=== PATIENT | male | born 1975 | race Caucasian/White ===

== ENCOUNTER 2020-02-23 08:32 | Outpatient (REF) | payer OTHER, SELFPAY ==
[2020-02-23 09:18] LABS: MANUAL DIFF FLAG NO
[2020-02-23 09:25] LABS: Basophils Absolute Auto 0.1 X10*3/uL (0.0-0.2); Basophils Percent Auto 0.7 % (0-2); Eosinophils Absolute Auto 0.2 X10*3/uL (0.0-0.4); Eosinophils Percent Auto 2.4 % (0-4); Hematocrit 49.3 % (42-52); Hemoglobin 16.4 g/dl (14.0-18.0); Imm Gran Abs Auto 0.05 X10*3/uL (0.00-0.03); Imm Gran Pct Auto 0.7 % (0.0-0.4); Lymphocytes Absolute Auto 1.3 X10*3/uL (1.2-4.9); Mean Corpuscular HGB Conc 33.3 g/dl (31.0-36.0); Mean Corpuscular Volume 87.1 fL (80-98); Mean Platelet Volume 10.9 fL (9.4-12.4); Monocytes Absolute Auto 0.6 X10*3/uL (0.1-1.2); Monocytes Percent Auto 8.1 % (2-11); Neutrophils Absolute Auto 5.3 X10*3/uL (2.0-8.3); Neutrophils Percent Auto 71.1 % (45-73); Platelet Count 209 X10*3/uL (160-400); Red Blood Count 5.66 X10*6/uL (4.60-5.80); Red Cell Distribution Width 12.8 % (11.0-16.0); White Blood Count 7.4 X10*3/uL (4.8-10.8)
[2020-02-23 09:43] LABS: Alanine Aminotransferase 62 U/L (0-40); Albumin Level 4.6 g/dL (3.5-5.0); Alkaline Phosphatase 82 U/L (39-117); Anion Gap 11 (12-20); Aspartate Amino Transferase 34 U/L (5-37); Bilirubin Total 0.6 mg/dL (0.0-1.0); Blood Urea Nitrogen 12 mg/dL (9-16); Calcium 9.3 mg/dL (8.4-10.2); Carbon Dioxide 36 mmol/L (22-29); Chloride 99 mmol/L (96-108); Cholesterol 217 mg/dL; Estimated Glomerular Filt Rate > 60; Glucose Fasting 127 mg/dL (60-99); HDL Cholesterol 45 mg/dL; LDL Cholesterol Calculated 148 mg/dl; Potassium 3.9 mmol/l (3.3-5.1); Sodium 142 mmol/L (135-145); Total Protein 7.2 g/dL (6.5-8.0); Triglycerides 123 mg/dL
[2020-02-23 10:02] LABS: Prostate Specific Antigen 0.75 ng/mL (<0.05-4.0)
== END 2020-02-23 08:33 | disposition home or self-care (01) ==
LOC: HO.LAB 08:32
PROVIDERS: PCP Internal Medicine; Visit Provider Internal Medicine
DX: G47.33 Obstructive sleep apnea (adult) (pediatric) (principal); Z00.00 Encounter for general adult medical examination without abnormal findings; I50.22 Chronic systolic (congestive) heart failure; E78.00 Pure hypercholesterolemia, unspecified; J45.21 Mild intermittent asthma with (acute) exacerbation; Z95.2 Presence of prosthetic heart valve
CPT/HCPCS: 36415; 80053; 80061; 84153; 85025

== ENCOUNTER 2020-02-25 08:13 | Outpatient (REF) | payer OTHER, SELFPAY ==
[2020-02-25 08:30] LABS: Glucose Urine UA NEG (NEG); Leukocyte Esterase Urine NEG (NEG); Nitrite Urine NEG (NEG); PH 5.5 (5.0-8.0); Specific Gravity - Urine >= 1.030 (1.005-1.025); Urine Blood NEG (NEG); Urine Ketones NEG (NEG); Urine Protein NEG (NEG-TRACE)
[2020-02-25 08:36] LABS: Appearance Urine CLEAR; Color Urine YELLOW
== END 2020-02-25 08:14 | disposition home or self-care (01) ==
LOC: HO.LNP 08:13
PROVIDERS: Visit Provider Internal Medicine
DX: Z00.00 Encounter for general adult medical examination without abnormal findings (principal); G47.33 Obstructive sleep apnea (adult) (pediatric); I50.22 Chronic systolic (congestive) heart failure; E78.00 Pure hypercholesterolemia, unspecified; Z95.2 Presence of prosthetic heart valve
CPT/HCPCS: 81003

== ENCOUNTER → 2020-02-28 08:09 | Outpatient (BNVA) | payer OTHER, SELFPAY | PROVIDERS: PCP Internal Medicine; Visit Provider Internal Medicine | DX: Z95.2 Presence of prosthetic heart valve (principal); Z51.81 Encounter for therapeutic drug level monitoring; Z79.01 Long term (current) use of anticoagulants | CPT/HCPCS: Q3014 ==

== ENCOUNTER → 2020-03-06 15:50 | Outpatient (BNVA) | payer OTHER, SELFPAY | PROVIDERS: PCP Internal Medicine; Visit Provider Internal Medicine | DX: Z95.2 Presence of prosthetic heart valve (principal); Z51.81 Encounter for therapeutic drug level monitoring; Z79.01 Long term (current) use of anticoagulants | CPT/HCPCS: 85610; 99211 ==

== ENCOUNTER → 2020-04-24 08:36 | Outpatient (BNVA) | payer OTHER, SELFPAY | PROVIDERS: PCP Internal Medicine; Visit Provider Internal Medicine | DX: Z76.89 Persons encountering health services in other specified circumstances (principal) ==

== ENCOUNTER → 2020-05-08 09:05 | Outpatient (BNVA) | payer OTHER, SELFPAY | PROVIDERS: PCP Internal Medicine; Visit Provider Internal Medicine | DX: Z95.2 Presence of prosthetic heart valve (principal); Z51.81 Encounter for therapeutic drug level monitoring; Z79.01 Long term (current) use of anticoagulants | CPT/HCPCS: Q3014 ==

== ENCOUNTER → 2020-05-22 10:32 | Outpatient (BNVA) | payer OTHER, SELFPAY | PROVIDERS: PCP Internal Medicine; Visit Provider Internal Medicine | DX: Z76.89 Persons encountering health services in other specified circumstances (principal) ==

== ENCOUNTER → 2020-06-05 08:27 | Outpatient (BNVA) | payer OTHER, SELFPAY | PROVIDERS: PCP Internal Medicine; Visit Provider Internal Medicine | DX: Z95.2 Presence of prosthetic heart valve (principal); Z51.81 Encounter for therapeutic drug level monitoring; Z79.01 Long term (current) use of anticoagulants | CPT/HCPCS: Q3014 ==

== ENCOUNTER → 2020-06-12 08:27 | Outpatient (BNVA) | payer OTHER, SELFPAY | PROVIDERS: PCP Internal Medicine; Visit Provider Internal Medicine ==

== ENCOUNTER → 2020-06-26 11:29 | Outpatient (BNVA) | payer OTHER, SELFPAY | PROVIDERS: PCP Internal Medicine; Visit Provider Internal Medicine | DX: Z95.2 Presence of prosthetic heart valve (principal); Z51.81 Encounter for therapeutic drug level monitoring; Z79.01 Long term (current) use of anticoagulants | CPT/HCPCS: Q3014 ==

== ENCOUNTER → 2020-07-10 09:33 | Outpatient (BNVA) | payer OTHER, SELFPAY | PROVIDERS: PCP Internal Medicine; Visit Provider Internal Medicine ==

== ENCOUNTER → 2020-07-24 09:38 | Outpatient (BNVA) | payer OTHER, SELFPAY | PROVIDERS: PCP Internal Medicine; Visit Provider Internal Medicine ==

== ENCOUNTER → 2020-08-07 11:58 | Outpatient (BNVA) | payer OTHER, SELFPAY | PROVIDERS: PCP Internal Medicine; Visit Provider Internal Medicine | DX: Z79.01 Long term (current) use of anticoagulants (principal) ==

== ENCOUNTER → 2020-08-21 08:19 | Outpatient (BNVA) | payer OTHER, SELFPAY | PROVIDERS: PCP Internal Medicine; Visit Provider Internal Medicine ==

== ENCOUNTER 2020-08-28 10:20 | Outpatient (REF) | payer OTHER, SELFPAY ==
[2020-08-28 10:59] LABS: Estimated Average Glucose 123 mg/dL; Hemoglobin A1c % 5.9 %
[2020-08-28 11:52] LABS: Cholesterol 205 mg/dL; Glucose Fasting 109 mg/dL (60-99); HDL Cholesterol 42 mg/dL; LDL Cholesterol Calculated 142 mg/dl; Potassium 3.4 mmol/L (3.3-5.1); Triglycerides 108 mg/dL
== END 2020-08-28 10:21 | disposition home or self-care (01) ==
LOC: HO.LNP 10:20
PROVIDERS: Visit Provider Internal Medicine
DX: R73.03 Prediabetes (principal); E78.00 Pure hypercholesterolemia, unspecified; E87.6 Hypokalemia
CPT/HCPCS: 80061; 82947; 83036; 84132

== ENCOUNTER → 2020-09-11 08:22 | Outpatient (BNVA) | payer OTHER, SELFPAY | PROVIDERS: PCP Internal Medicine; Visit Provider Internal Medicine ==

== ENCOUNTER → 2020-09-30 11:54 | Outpatient (BNVA) | payer OTHER, SELFPAY | PROVIDERS: PCP Internal Medicine; Visit Provider Internal Medicine ==

== ENCOUNTER → 2020-10-14 08:51 | Outpatient (BNVA) | payer OTHER, SELFPAY | PROVIDERS: PCP Internal Medicine; Visit Provider Internal Medicine ==

== ENCOUNTER → 2020-10-28 09:13 | Outpatient (BNVA) | payer OTHER, SELFPAY | PROVIDERS: PCP Internal Medicine; Visit Provider Internal Medicine ==

== ENCOUNTER → 2020-11-11 09:10 | Outpatient (BNVA) | payer OTHER, SELFPAY | PROVIDERS: PCP Internal Medicine; Visit Provider Internal Medicine ==

== ENCOUNTER → 2020-11-25 10:23 | Outpatient (BNVA) | payer OTHER, SELFPAY | PROVIDERS: PCP Internal Medicine; Visit Provider Internal Medicine ==

== ENCOUNTER → 2020-12-10 08:26 | Outpatient (BNVA) | payer OTHER, SELFPAY | PROVIDERS: PCP Internal Medicine; Visit Provider Internal Medicine | DX: Z95.2 Presence of prosthetic heart valve (principal); Z51.81 Encounter for therapeutic drug level monitoring; Z79.01 Long term (current) use of anticoagulants | CPT/HCPCS: Q3014 ==

== ENCOUNTER → 2020-12-17 09:09 | Outpatient (BNVA) | payer OTHER, SELFPAY | PROVIDERS: PCP Internal Medicine; Visit Provider Internal Medicine ==

== ENCOUNTER → 2021-01-02 10:43 | Outpatient (BNVA) | payer OTHER, SELFPAY | PROVIDERS: PCP Internal Medicine; Visit Provider Internal Medicine | DX: Z95.2 Presence of prosthetic heart valve (principal); Z79.01 Long term (current) use of anticoagulants; Z51.81 Encounter for therapeutic drug level monitoring | CPT/HCPCS: Q3014 ==

== ENCOUNTER → 2021-01-07 10:48 | Outpatient (BNVA) | payer OTHER, SELFPAY | PROVIDERS: PCP Internal Medicine; Visit Provider Internal Medicine ==

== ENCOUNTER → 2021-01-13 10:36 | Outpatient (BNVA) | payer OTHER, SELFPAY | PROVIDERS: PCP Internal Medicine; Visit Provider Internal Medicine ==

== ENCOUNTER → 2021-01-27 15:00 | Outpatient (BNVA) | payer OTHER, SELFPAY | PROVIDERS: PCP Internal Medicine; Visit Provider Internal Medicine ==

== ENCOUNTER → 2021-02-10 11:50 | Outpatient (BNVA) | payer OTHER, SELFPAY | PROVIDERS: PCP Internal Medicine; Visit Provider Internal Medicine | DX: Z95.2 Presence of prosthetic heart valve (principal); Z51.81 Encounter for therapeutic drug level monitoring; Z79.01 Long term (current) use of anticoagulants | CPT/HCPCS: Q3014 ==

== ENCOUNTER 2021-02-23 10:26 | Outpatient (REF) | payer OTHER, SELFPAY ==
[2021-02-23 10:31] LABS: MANUAL DIFF FLAG NO
[2021-02-23 10:43] LABS: Basophils Absolute Auto 0.1 X10*3/uL (0.0-0.2); Eosinophils Absolute Auto 0.2 X10*3/uL (0.0-0.4); Eosinophils Percent Auto 3.1 % (0-4); Hematocrit 48.2 % (42-52); Hemoglobin 16.1 g/dl (14.0-18.0); Imm Gran Abs Auto 0.05 X10*3/uL (0.00-0.03); Imm Gran Pct Auto 0.7 % (0.0-0.4); Lymphocytes Absolute Auto 1.4 X10*3/uL (1.2-4.9); Lymphocytes Percent Auto 20.2 % (20-40); Mean Corpuscular HGB Conc 33.4 g/dl (31.0-36.0); Mean Corpuscular Volume 86.7 fL (80-98); Mean Platelet Volume 11.3 fL (9.4-12.4); Monocytes Absolute Auto 0.6 X10*3/uL (0.1-1.2); Monocytes Percent Auto 9.1 % (2-11); Neutrophils Absolute Auto 4.4 X10*3/uL (2.0-8.3); Neutrophils Percent Auto 65.9 % (45-73); Platelet Count 218 X10*3/uL (160-400); Red Blood Count 5.56 X10*6/uL (4.60-5.80); Red Cell Distribution Width 12.9 % (11.0-16.0); White Blood Count 6.7 X10*3/uL (4.8-10.8)
[2021-02-23 10:50] LABS: Appearance Urine CLEAR; Color Urine YELLOW; Glucose Urine UA NEG (NEG); Leukocyte Esterase Urine NEG (NEG); Nitrite Urine NEG (NEG); Urine Blood NEG (NEG); Urine Ketones NEG (NEG); Urine Protein NEG (NEG-TRACE)
[2021-02-23 11:05] LABS: Alanine Aminotransferase 69 U/L (0-40); Albumin Level 4.5 g/dL (3.5-5.0); Alkaline Phosphatase 85 U/L (39-117); Anion Gap 13 (12-20); Aspartate Amino Transferase 47 U/L (5-37); Bilirubin Total 0.6 mg/dL (0.0-1.0); Blood Urea Nitrogen 10 mg/dL (9-16); Calcium 9.2 mg/dL (8.4-10.2); Carbon Dioxide 34 mmol/L (22-29); Chloride 99 mmol/L (96-108); Cholesterol 232 mg/dL; Estimated Glomerular Filt Rate > 60; Glucose Fasting 119 mg/dL (60-99); HDL Cholesterol 43 mg/dL; LDL Cholesterol Calculated 164 mg/dl; Potassium 3.3 mmol/L (3.3-5.1); Sodium 143 mmol/L (135-145); Total Protein 7.1 g/dL (6.5-8.0); Triglycerides 126 mg/dL; Uric Acid 10.4 mg/dL (3.4-7.0)
[2021-02-23 11:12] LABS: Estimated Average Glucose 126 mg/dL
[2021-02-23 11:17] LABS: Creatinine Urine 24.76 mg/dL; Microalbum/Creatinine Ratio Ur 60.5 ug/mg cr
[2021-02-23 11:25] LABS: PSA,Total (Free>4and<10) 0.62 ng/mL (0.00-4.00)
[2021-02-23 12:02] LABS: Reflex LDLD? No
== END 2021-02-23 10:27 | disposition home or self-care (01) ==
LOC: HO.LNP 10:26
PROVIDERS: Visit Provider Internal Medicine
DX: Z00.00 Encounter for general adult medical examination without abnormal findings (principal); Z12.5 Encounter for screening for malignant neoplasm of prostate; I50.22 Chronic systolic (congestive) heart failure; E78.00 Pure hypercholesterolemia, unspecified; R73.03 Prediabetes; M10.9 Gout, unspecified
CPT/HCPCS: 80053; 80061; 81003; 82043; 83036; 84153; 84550; 85025

== ENCOUNTER → 2021-02-24 15:12 | Outpatient (BNVA) | payer OTHER, SELFPAY | PROVIDERS: PCP Internal Medicine; Visit Provider Internal Medicine ==

== ENCOUNTER → 2021-03-05 15:51 | Outpatient (BNVA) | payer OTHER, SELFPAY | PROVIDERS: PCP Internal Medicine; Visit Provider Internal Medicine | DX: Z95.2 Presence of prosthetic heart valve (principal); Z51.81 Encounter for therapeutic drug level monitoring; Z79.01 Long term (current) use of anticoagulants | CPT/HCPCS: 85610; 99211 ==

== ENCOUNTER → 2021-03-18 14:30 | Outpatient (BNVA) | payer OTHER, SELFPAY | PROVIDERS: PCP Internal Medicine; Visit Provider Internal Medicine | DX: Z95.2 Presence of prosthetic heart valve (principal); Z51.81 Encounter for therapeutic drug level monitoring; Z79.01 Long term (current) use of anticoagulants | CPT/HCPCS: Q3014 ==

== ENCOUNTER → 2021-03-31 09:00 | Outpatient (BNVA) | payer OTHER, SELFPAY | PROVIDERS: PCP Internal Medicine; Visit Provider Internal Medicine ==

== ENCOUNTER → 2021-04-14 13:27 | Outpatient (BNVA) | payer OTHER, SELFPAY | PROVIDERS: PCP Internal Medicine; Visit Provider Internal Medicine | DX: Z95.2 Presence of prosthetic heart valve (principal); Z51.81 Encounter for therapeutic drug level monitoring; Z79.01 Long term (current) use of anticoagulants | CPT/HCPCS: Q3014 ==

== ENCOUNTER → 2021-04-29 12:21 | Outpatient (BNVA) | payer OTHER, SELFPAY | PROVIDERS: PCP Internal Medicine; Visit Provider Internal Medicine ==

== ENCOUNTER → 2021-05-12 13:44 | Outpatient (BNVA) | payer OTHER, SELFPAY | PROVIDERS: PCP Internal Medicine; Visit Provider Internal Medicine ==

== ENCOUNTER → 2021-05-26 11:19 | Outpatient (BNVA) | payer OTHER, SELFPAY | PROVIDERS: PCP Internal Medicine; Visit Provider Internal Medicine ==

== ENCOUNTER 2021-06-04 10:25 | Outpatient (REF) | payer OTHER, SELFPAY ==
[2021-06-04 11:33] LABS: Uric Acid 5.3 mg/dL (3.4-7.0)
== END 2021-06-04 10:26 | disposition home or self-care (01) ==
LOC: HO.LNP 10:25
PROVIDERS: Visit Provider Internal Medicine
DX: M10.9 Gout, unspecified (principal)
CPT/HCPCS: 84550

== ENCOUNTER → 2021-06-09 10:08 | Outpatient (BNVA) | payer OTHER, SELFPAY | PROVIDERS: PCP Internal Medicine; Visit Provider Internal Medicine ==

== ENCOUNTER → 2021-06-24 11:45 | Outpatient (BNVA) | payer OTHER, SELFPAY | PROVIDERS: PCP Internal Medicine; Visit Provider Internal Medicine ==

== ENCOUNTER → 2021-07-07 16:38 | Outpatient (BNVA) | payer OTHER, SELFPAY | PROVIDERS: PCP Internal Medicine; Visit Provider Internal Medicine | DX: Z95.2 Presence of prosthetic heart valve (principal); Z51.81 Encounter for therapeutic drug level monitoring; Z79.01 Long term (current) use of anticoagulants | CPT/HCPCS: Q3014 ==

== ENCOUNTER → 2021-07-21 08:37 | Outpatient (BNVA) | payer OTHER, SELFPAY | PROVIDERS: PCP Internal Medicine; Visit Provider Internal Medicine ==

== ENCOUNTER → 2021-08-04 12:30 | Outpatient (BNVA) | payer OTHER, SELFPAY | PROVIDERS: PCP Internal Medicine; Visit Provider Internal Medicine | DX: Z13.89 Encounter for screening for other disorder (principal) ==

== ENCOUNTER → 2021-08-21 08:25 | Outpatient (BNVA) | payer OTHER, SELFPAY | PROVIDERS: PCP Internal Medicine; Visit Provider Internal Medicine | DX: Z13.89 Encounter for screening for other disorder (principal) ==

== ENCOUNTER → 2021-09-01 11:47 | Outpatient (BNVA) | payer OTHER, SELFPAY | PROVIDERS: PCP Internal Medicine; Visit Provider Internal Medicine | DX: Z13.89 Encounter for screening for other disorder (principal) ==

== ENCOUNTER → 2021-09-15 14:38 | Outpatient (BNVA) | payer OTHER, SELFPAY | PROVIDERS: PCP Internal Medicine; Visit Provider Internal Medicine | DX: Z95.2 Presence of prosthetic heart valve (principal); Z51.81 Encounter for therapeutic drug level monitoring; Z79.01 Long term (current) use of anticoagulants | CPT/HCPCS: Q3014 ==

== ENCOUNTER → 2021-09-22 12:45 | Outpatient (BNVA) | payer OTHER, SELFPAY | PROVIDERS: PCP Internal Medicine; Visit Provider Internal Medicine | DX: Z13.89 Encounter for screening for other disorder (principal) ==

== ENCOUNTER → 2021-10-06 10:59 | Outpatient (BNVA) | payer OTHER, SELFPAY | PROVIDERS: PCP Internal Medicine; Visit Provider Internal Medicine | DX: Z13.89 Encounter for screening for other disorder (principal) ==

== ENCOUNTER → 2021-10-20 08:56 | Outpatient (BNVA) | payer OTHER, SELFPAY | PROVIDERS: PCP Internal Medicine; Visit Provider Internal Medicine | DX: Z13.89 Encounter for screening for other disorder (principal) ==

== ENCOUNTER → 2021-12-15 10:14 | Outpatient (BNVA) | payer OTHER, SELFPAY | PROVIDERS: PCP Internal Medicine; Visit Provider Internal Medicine | DX: Z95.2 Presence of prosthetic heart valve (principal); Z51.81 Encounter for therapeutic drug level monitoring; Z79.01 Long term (current) use of anticoagulants | CPT/HCPCS: Q3014 ==

== ENCOUNTER → 2022-01-12 09:57 | Outpatient (BNVA) | payer OTHER, SELFPAY | PROVIDERS: PCP Internal Medicine; Visit Provider Internal Medicine | DX: Z95.2 Presence of prosthetic heart valve (principal); Z51.81 Encounter for therapeutic drug level monitoring; Z79.01 Long term (current) use of anticoagulants | CPT/HCPCS: Q3014 ==

== ENCOUNTER → 2022-03-09 08:45 | Outpatient (BNVA) | payer OTHER, SELFPAY | PROVIDERS: PCP Internal Medicine; Visit Provider Internal Medicine | DX: Z95.2 Presence of prosthetic heart valve (principal); Z79.01 Long term (current) use of anticoagulants; Z51.81 Encounter for therapeutic drug level monitoring | CPT/HCPCS: Q3014 ==

== ENCOUNTER → 2022-03-18 15:21 | Outpatient (BNVA) | payer OTHER, SELFPAY | PROVIDERS: PCP Internal Medicine; Visit Provider Internal Medicine | DX: Z95.2 Presence of prosthetic heart valve (principal); Z51.81 Encounter for therapeutic drug level monitoring; Z79.01 Long term (current) use of anticoagulants | CPT/HCPCS: 85610; 99211 ==

== ENCOUNTER 2022-04-05 11:03 | Outpatient (REF) | payer OTHER, SELFPAY ==
[2022-04-05 11:10] LABS: MANUAL DIFF FLAG NO
[2022-04-05 12:17] LABS: Basophils Absolute Auto 0.1 X10*3/uL (0.0-0.2); Basophils Percent Auto 0.8 % (0-2); Eosinophils Absolute Auto 0.3 X10*3/uL (0.0-0.4); Eosinophils Percent Auto 3.4 % (0-4); Hematocrit 51.7 % (42.0-52.0); Hemoglobin 16.6 g/dl (14.0-18.0); Imm Gran Abs Auto 0.02 X10*3/uL (0.00-0.03); Imm Gran Pct Auto 0.3 % (0.0-0.4); Lymphocytes Absolute Auto 1.3 X10*3/uL (1.2-4.9); Lymphocytes Percent Auto 17.3 % (20-40); Mean Corpuscular HGB Conc 32.1 g/dl (31.0-36.0); Mean Corpuscular Hemoglobin 28.6 pg (27.0-33.0); Mean Corpuscular Volume 89.1 fL (80.0-98.0); Mean Platelet Volume 11.3 fL (9.4-12.4); Monocytes Absolute Auto 0.6 X10*3/uL (0.1-1.2); Monocytes Percent Auto 8.3 % (2-11); Neutrophils Absolute Auto 5.1 x10*3/uL (2.0-8.3); Neutrophils Percent Auto 69.9 % (45-73); Platelet Count 201 X10*3/uL (160-400); Red Cell Distribution Width 13.4 % (11.0-16.0); White Blood Count 7.3 X10*3/uL (4.8-10.8)
[2022-04-05 12:40] LABS: Estimated Average Glucose 126 mg/dL
[2022-04-05 12:46] LABS: Appearance Urine Hazy; Color Urine Yellow; Glucose Urine UA Negative (Negative); Leukocyte Esterase Urine Negative (Negative); Nitrite Urine Negative (Negative); Specific Gravity - Urine >= 1.030 (1.005-1.025); UMIC TRIGGER UA YES; Urine Blood Negative (Negative); Urine Ketones Negative (Negative); Urine Protein 100 (2+) mg/dL (Neg-Trace)
[2022-04-05 12:58] LABS: Microalbum/Creatinine Ratio Ur 55.5 ug/mg cr
[2022-04-05 13:00] LABS: PSA,Total (Free>4and<10) 0.54 ng/mL (0.00-4.00)
[2022-04-05 13:27] LABS: Bacteria Urine None Seen (None Seen); Hyaline Casts Urine 0-2 /LPF (0-2); RBC Urine 0-2 /HPF (0-2); Squamous Epithelial Cell Urine 0-2 /HPF (0-2); WBC Urine 0-5 /HPF (0-5)
[2022-04-05 13:28] LABS: Calcium Oxalate Crystals Urine Present
[2022-04-05 13:32] LABS: Alanine Aminotransferase 105 U/L (0-40); Albumin Level 4.5 g/dL (3.5-5.0); Alkaline Phosphatase 83 U/L (39-117); Anion Gap 18 (12-20); Aspartate Amino Transferase 68 U/L (5-37); Bilirubin Total 1.1 mg/dL (0.0-1.0); Blood Urea Nitrogen 10 mg/dL (9-16); Calcium 9.1 mg/dL (8.4-10.2); Carbon Dioxide 31 mmol/L (22-29); Chloride 97 mmol/L (96-108); Cholesterol 204 mg/dL; Estimated Glomerular Filt Rate > 60; Glucose Fasting 115 mg/dL (60-99); HDL Cholesterol 41 mg/dL; LDL Cholesterol Calculated 148 mg/dl; Potassium 3.8 mmol/L (3.3-5.1); Sodium 142 mmol/L (135-145); Total Protein 7.2 g/dL (6.5-8.0); Triglycerides 76 mg/dL
== END 2022-04-05 11:04 | disposition home or self-care (01) ==
LOC: HO.LNP 11:03
PROVIDERS: Visit Provider Internal Medicine
DX: Z00.00 Encounter for general adult medical examination without abnormal findings (principal); I50.22 Chronic systolic (congestive) heart failure; E78.00 Pure hypercholesterolemia, unspecified; R73.09 Other abnormal glucose; Z12.5 Encounter for screening for malignant neoplasm of prostate
CPT/HCPCS: 80053; 80061; 81001; 82043; 83036; 84153; 85025

== ENCOUNTER → 2022-05-11 10:14 | Outpatient (BNVA) | payer OTHER, SELFPAY | PROVIDERS: PCP Internal Medicine; Visit Provider Internal Medicine | DX: Z79.01 Long term (current) use of anticoagulants (principal) ==

== ENCOUNTER → 2022-05-25 09:50 | Outpatient (BNVA) | payer OTHER, SELFPAY | PROVIDERS: PCP Internal Medicine; Visit Provider Internal Medicine | DX: Z79.01 Long term (current) use of anticoagulants (principal) ==

== ENCOUNTER → 2022-06-08 15:14 | Outpatient (BNVA) | payer OTHER, SELFPAY | PROVIDERS: PCP Internal Medicine; Visit Provider Internal Medicine | DX: Z79.01 Long term (current) use of anticoagulants (principal) ==

== ENCOUNTER → 2022-06-11 10:04 | Outpatient (BNVA) | payer OTHER, SELFPAY | PROVIDERS: PCP Internal Medicine; Visit Provider Internal Medicine | DX: Z79.01 Long term (current) use of anticoagulants (principal) ==

== ENCOUNTER 2022-06-14 11:26 | Outpatient (REF) | payer OTHER, SELFPAY ==
[2022-06-14 12:47] LABS: Potassium 2.7 mmol/L (3.3-5.1)
== END 2022-06-14 11:27 | disposition home or self-care (01) ==
LOC: HO.LNP 11:26
PROVIDERS: Visit Provider Internal Medicine
DX: E87.6 Hypokalemia (principal)
CPT/HCPCS: 84132

== ENCOUNTER → 2022-06-15 08:57 | Outpatient (BNVA) | payer OTHER, SELFPAY | PROVIDERS: PCP Internal Medicine; Visit Provider Internal Medicine | DX: Z79.01 Long term (current) use of anticoagulants (principal) ==

== ENCOUNTER 2022-06-18 11:37 | Outpatient (REF) | payer OTHER, SELFPAY ==
[2022-06-18 11:40] LABS: MANUAL DIFF FLAG NO
[2022-06-18 12:22] LABS: Basophils Absolute Auto 0.1 X10*3/uL (0.0-0.2); Basophils Percent Auto 0.6 % (0-2); Eosinophils Absolute Auto 0.2 X10*3/uL (0.0-0.4); Eosinophils Percent Auto 2.7 % (0-4); Hemoglobin 18.5 g/dl (14.0-18.0); Imm Gran Abs Auto 0.04 X10*3/uL (0.00-0.03); Imm Gran Pct Auto 0.5 % (0.0-0.4); Lymphocytes Absolute Auto 1.3 X10*3/uL (1.2-4.9); Lymphocytes Percent Auto 15.1 % (20-40); Mean Corpuscular HGB Conc 33.6 g/dl (31.0-36.0); Mean Corpuscular Hemoglobin 28.4 pg (27.0-33.0); Mean Corpuscular Volume 84.5 fL (80.0-98.0); Mean Platelet Volume 11.1 fL (9.4-12.4); Monocytes Absolute Auto 0.7 X10*3/uL (0.1-1.2); Monocytes Percent Auto 8.3 % (2-11); Neutrophils Absolute Auto 6.3 x10*3/uL (2.0-8.3); Neutrophils Percent Auto 72.8 % (45-73); Platelet Count 216 X10*3/uL (160-400); Red Blood Count 6.52 X10*6/uL (4.60-5.80); Red Cell Distribution Width 12.7 % (11.0-16.0); White Blood Count 8.6 X10*3/uL (4.8-10.8)
[2022-06-18 12:36] LABS: Hematocrit 55.1 % (42.0-52.0)
[2022-06-18 13:28] LABS: Alanine Aminotransferase 67 U/L (0-40); Albumin Level 4.5 g/dL (3.5-5.0); Alkaline Phosphatase 97 U/L (39-117); Anion Gap 23 (12-20); Aspartate Amino Transferase 51 U/L (5-37); Bilirubin Total 1.2 mg/dL (0.0-1.0); Blood Urea Nitrogen 28 mg/dL (9-16); Calcium 9.9 mg/dL (8.4-10.2); Carbon Dioxide 41 mmol/L (22-29); Chloride 80 mmol/L (96-108); Estimated Glomerular Filt Rate > 60; Glucose Fasting 168 mg/dL (60-99); Potassium 2.6 mmol/L (3.3-5.1); Sodium 141 mmol/L (135-145); Total Protein 7.2 g/dL (6.5-8.0)
== END 2022-06-18 11:38 | disposition home or self-care (01) ==
LOC: HO.LNP 11:37
PROVIDERS: Visit Provider Internal Medicine
DX: I50.22 Chronic systolic (congestive) heart failure (principal); R71.8 Other abnormality of red blood cells
CPT/HCPCS: 80053; 83880; 85025

== ENCOUNTER 2022-06-21 06:42 | Outpatient (REF) | payer OTHER, SELFPAY ==
[2022-06-21 09:10] LABS: Anion Gap 19 (12-20); Carbon Dioxide 40 mmol/L (22-29); Chloride 87 mmol/L (96-108); Sodium 143 mmol/L (135-145)
[2022-06-21 09:26] LABS: B Type Natriuretic Peptide 29 pg/mL (<100)
== END 2022-06-21 06:43 | disposition home or self-care (01) ==
LOC: HO.LAB 06:42
PROVIDERS: PCP Internal Medicine; Visit Provider Internal Medicine
DX: I50.22 Chronic systolic (congestive) heart failure (principal)
CPT/HCPCS: 36415; 80051; 83880

== ENCOUNTER → 2022-06-23 10:21 | Outpatient (BNVA) | payer OTHER, SELFPAY | PROVIDERS: PCP Internal Medicine; Visit Provider Internal Medicine | DX: Z79.01 Long term (current) use of anticoagulants (principal) ==

== ENCOUNTER 2022-06-28 10:30 | Outpatient (REF) | payer OTHER, SELFPAY ==
[2022-06-28 12:34] LABS: Anion Gap 21 (12-20); Carbon Dioxide 44 mmol/L (22-29); Chloride 77 mmol/L (96-108); Potassium 3.1 mmol/L (3.3-5.1); Sodium 139 mmol/L (135-145)
== END 2022-06-28 10:31 | disposition home or self-care (01) ==
LOC: HO.LNP 10:30
PROVIDERS: Visit Provider Internal Medicine
DX: E87.6 Hypokalemia (principal)
CPT/HCPCS: 80051

== ENCOUNTER → 2022-06-29 08:31 | Outpatient (BNVA) | payer OTHER, SELFPAY | PROVIDERS: PCP Internal Medicine; Visit Provider Internal Medicine | DX: Z13.89 Encounter for screening for other disorder (principal) ==

== ENCOUNTER → 2022-07-06 08:18 | Outpatient (BNVA) | payer OTHER, SELFPAY | PROVIDERS: PCP Internal Medicine; Visit Provider Internal Medicine | DX: Z79.01 Long term (current) use of anticoagulants (principal) ==

== ENCOUNTER → 2022-07-13 11:46 | Outpatient (BNVA) | payer OTHER, SELFPAY | PROVIDERS: PCP Internal Medicine; Visit Provider Internal Medicine | DX: Z79.01 Long term (current) use of anticoagulants (principal) ==

== ENCOUNTER 2022-07-15 12:09 | Outpatient (REF) | payer OTHER, SELFPAY ==
[2022-07-15 13:11] LABS: Anion Gap 15 (12-20); Carbon Dioxide 41 mmol/L (22-29); Chloride 87 mmol/L (96-108); Magnesium 1.8 mg/dL (1.6-2.6); Potassium 3.1 mmol/L (3.3-5.1); Sodium 140 mmol/L (135-145)
== END 2022-07-15 12:10 | disposition home or self-care (01) ==
LOC: HO.LNP 12:09
PROVIDERS: Visit Provider Internal Medicine
DX: I50.22 Chronic systolic (congestive) heart failure (principal)
CPT/HCPCS: 80051; 83735

== ENCOUNTER → 2022-07-20 09:18 | Outpatient (BNVA) | payer OTHER, SELFPAY | PROVIDERS: PCP Internal Medicine; Visit Provider Internal Medicine | DX: Z79.01 Long term (current) use of anticoagulants (principal) ==

== ENCOUNTER 2022-07-22 10:39 | Outpatient (REF) | payer OTHER, SELFPAY ==
[2022-07-22 11:31] LABS: Magnesium 1.9 mg/dL (1.6-2.6); Potassium 3.8 mmol/L (3.3-5.1)
== END 2022-07-22 10:40 | disposition home or self-care (01) ==
LOC: HO.LNP 10:39
PROVIDERS: Visit Provider Internal Medicine
DX: E87.6 Hypokalemia (principal); E61.2 Magnesium deficiency
CPT/HCPCS: 83735; 84132

== ENCOUNTER → 2022-07-27 09:34 | Outpatient (BNVA) | payer OTHER, SELFPAY | PROVIDERS: PCP Internal Medicine; Visit Provider Internal Medicine | DX: Z13.89 Encounter for screening for other disorder (principal) ==

== ENCOUNTER → 2022-08-03 08:11 | Outpatient (BNVA) | payer OTHER, SELFPAY | PROVIDERS: PCP Internal Medicine; Visit Provider Internal Medicine | DX: Z13.89 Encounter for screening for other disorder (principal) ==

== ENCOUNTER → 2022-08-10 09:59 | Outpatient (BNVA) | payer OTHER, SELFPAY | PROVIDERS: PCP Internal Medicine; Visit Provider Internal Medicine | DX: Z13.89 Encounter for screening for other disorder (principal) ==

== ENCOUNTER → 2022-08-17 08:51 | Outpatient (BNVA) | payer OTHER, SELFPAY | PROVIDERS: PCP Internal Medicine; Visit Provider Internal Medicine | DX: Z79.01 Long term (current) use of anticoagulants (principal) ==

== ENCOUNTER → 2022-08-24 12:55 | Outpatient (BNVA) | payer OTHER, SELFPAY | PROVIDERS: PCP Internal Medicine; Visit Provider Internal Medicine | DX: Z79.01 Long term (current) use of anticoagulants (principal) ==

== ENCOUNTER → 2022-08-31 08:27 | Outpatient (BNVA) | payer OTHER, SELFPAY | PROVIDERS: PCP Internal Medicine; Visit Provider Internal Medicine | DX: Z79.01 Long term (current) use of anticoagulants (principal) ==

== ENCOUNTER → 2022-09-14 15:09 | Outpatient (BNVA) | payer OTHER, SELFPAY | PROVIDERS: PCP Internal Medicine; Visit Provider Internal Medicine | DX: Z79.01 Long term (current) use of anticoagulants (principal) ==

== ENCOUNTER 2022-09-16 11:48 | Outpatient (REF) | payer OTHER, SELFPAY ==
[2022-09-16 12:12] LABS: Anion Gap 19 (12-20); Carbon Dioxide 36 mmol/L (22-29); Chloride 85 mmol/L (96-108); Magnesium 1.9 mg/dL (1.6-2.6); Potassium 4.6 mmol/L (3.3-5.1); Sodium 135 mmol/L (135-145)
== END 2022-09-16 11:49 | disposition home or self-care (01) ==
LOC: HO.LNP 11:48
PROVIDERS: Visit Provider Internal Medicine
DX: E87.6 Hypokalemia (principal); E83.42 Hypomagnesemia
CPT/HCPCS: 80051; 83735

== ENCOUNTER → 2022-09-28 08:39 | Outpatient (BNVA) | payer OTHER, SELFPAY | PROVIDERS: PCP Internal Medicine; Visit Provider Internal Medicine | DX: Z79.01 Long term (current) use of anticoagulants (principal) ==

== ENCOUNTER 2022-10-08 09:04 | Outpatient (REF) | payer OTHER, SELFPAY ==
[2022-10-08 10:39] LABS: Alanine Aminotransferase 75 U/L (0-40); Albumin Level 4.3 g/dL (3.5-5.0); Alkaline Phosphatase 77 U/L (39-117); Aspartate Amino Transferase 52 U/L (5-37); Bilirubin Direct 0.2 mg/dL (0.0-0.5); Bilirubin Total 0.6 mg/dL (0.0-1.0); Magnesium 2.1 mg/dL (1.6-2.6); Potassium 4.1 mmol/L (3.3-5.1)
== END 2022-10-08 09:05 | disposition home or self-care (01) ==
LOC: HO.LNP 09:04
PROVIDERS: Visit Provider Internal Medicine
DX: K76.0 Fatty (change of) liver, not elsewhere classified (principal); E87.6 Hypokalemia; E83.42 Hypomagnesemia
CPT/HCPCS: 80076; 83735; 84132

== ENCOUNTER → 2022-10-12 08:26 | Outpatient (BNVA) | payer OTHER, SELFPAY | PROVIDERS: PCP Internal Medicine; Visit Provider Internal Medicine | DX: Z79.01 Long term (current) use of anticoagulants (principal) ==

== ENCOUNTER → 2022-10-26 10:47 | Outpatient (BNVA) | payer OTHER, SELFPAY | PROVIDERS: PCP Internal Medicine; Visit Provider Internal Medicine | DX: Z79.01 Long term (current) use of anticoagulants (principal) ==

== ENCOUNTER → 2022-11-09 09:58 | Outpatient (BNVA) | payer OTHER, SELFPAY | PROVIDERS: PCP Internal Medicine; Visit Provider Internal Medicine ==

== ENCOUNTER 2022-11-24 07:08 | Day surgery (SDC) | payer OTHER, SELFPAY ==
[2022-11-10 12:09] VITALS: BP 109/81; PULSE 103; RESP 24; O2SAT 96; BMI 39.6
--- NOTE | 2022-11-10 12:19 | HO.ANESPROP2 ---
Documented by User: Janice White NP 11/22/22 12:16 HPI - Anesthesia Eval Consult details Narrative: 47yo M for Colonoscopy, 11/24/22 Cardiac optimized per 10/2020 eval Warfarin s/p AVR 2001. Will bridge with lovenox per assistant director of security. *Hx DI* Mallampati class IV. Poor neck mobility. <3cm TM distance. No recent illness. No CP/SOB with activity. Bipap for SINA QHS PMFSH Active Problems Active Problems: All Active Problems (Updated 11/10/22 @ 12:16 by Renetta Phipps RN) Current use of anticoagulant therapy (Acute) Presence of prosthetic heart valve (Acute) Past Medical History Medical History CHF exacerbation Gout History of difficult intubation On anticoagulant therapy On beta bunny at home SINA (obstructive sleep apnea) Palpitations Prophylactic antibiotic PVCs (premature ventricular contractions) Subaortic membrane Family History Family history of problems with anesthesia: No Surgical History Surgical History History of bilateral inguinal hernia repair History of fusion of cervical spine History of heart surgery History of tonsillectomy and adenoidectomy History of umbilical hernia repair Status post mechanical aortic valve replacement History of Problems with Anesthesia: No Social History Social History Are you a primary career technical counselor to a significant other at home: No Do you presently have visiting nurse or other home services: No Patient Tobacco Use Status: Never used Tobacco Second Hand Smoke Exposure: No Use of substances other than those prescribed or required for medical reasons: No Have you been hit, kicked, punched, or otherwise hurt by someone within the past year? If so, by whom?: No Are you DNR?: No Advance Directives: No Advance Directives Information Provided: Yes (mother) Advance Directives on File: No Recently lost weight without trying: No Eating poorly because of decreased appetite: No Nutrition Risks: No Nutritional Risk Poor oral hygiene: No (intact teeth) Meds Allergies Allergy/AdvReac Type Severity Reaction Status Date / Time No Known Allergies Allergy Verified 10/26/22 10:56 Home Medications Medication Instructions Recorded Confirmed Last Taken Type colchicine 0.6 mg tablet 0.6 mg PO BID 01/07/21 11/09/22 Unknown History metoprolol succinate 50 mg 50 mg PO DAILY 01/07/21 11/09/22 Unknown History tablet,extended release 24 hr clobetasol 0.05 % topical gel 1 appl topical DAILY 09/15/21 11/09/22 Unknown History albuterol sulfate 90 mcg/actuation 0 mcg inhalation 01/12/22 10/26/22 Unknown History aerosol inhaler allopurinol 300 mg tablet 150 mg PO DAILY 03/18/22 11/09/22 Unknown History magnesium oxide 400 mg PO DAILY 07/13/22 11/10/22 Unknown History metolazone 2.5 mg tablet 2.5 mg PO .COMPLEX 07/20/22 11/09/22 Unknown History potassium chloride 20 mEq 40 meq PO TID 07/20/22 11/10/22 Unknown History tablet,extended release spironolactone 25 mg tablet 75 mg PO BID 07/20/22 11/10/22 Unknown History torsemide 60 mg tablet See Rx Instructions PO BID 10/12/22 11/09/22 Unknown History penicillin V potassium 500 mg 500 mg PO ONCE proph antibiotic 11/10/22 11/10/22 Unknown History tablet Exam Exam Date and Time: November 10, 2022 1219 Height,Weight and Vital Signs: Height 5 ft 4 in Weight 104.78 kg Last Vital Signs Pulse 103 H 11/10/22 12:09 Resp 24 H 11/10/22 12:09 BP 109/81 11/10/22 12:09 Pulse Ox 96 11/10/22 12:09 O2 Del Method Room Air 11/10/22 12:09 Pertinent Lab Results Pertinent Lab Results: Laboratory Tests 06/18/22 06/18/22 09/16/22 Unknown Unknown 07:30 WBC 8.6 Hgb 18.5 H Hct 55.1 H Plt Count 216 Sodium 135 Potassium Chloride 85 L Carbon Dioxide 36 H BUN 28 H Creatinine 1.23 10/08/22 07:00 WBC Hgb Hct Plt Count Sodium Potassium 4.1 Chloride Carbon Dioxide BUN Creatinine Airway Mallampati Class: IV TM Dist: <=3cm Neck ROM: Poor (C1-5 fusion) Loose/Missing/Broken Teeth: Yes (pulled molar. temp crown Left upper) Heart: tachy, RR Lungs: CTAB Assessment and Plan Assessment Anesthesia Assessment: Anesthesia Plan Discussed and PAT Visit Final Anesthetic Review Family History of Problems with Anesthesia: No History of Problems with Anesthesia: No Documented by User: Nora Trinh MD 11/24/22 07:49 PMFSH Past Medical History Medical History CHF exacerbation Gout History of difficult intubation On anticoagulant therapy On beta bunny at home SINA (obstructive sleep apnea) Palpitations Prophylactic antibiotic PVCs (premature ventricular contractions) Subaortic membrane Surgical History Surgical History History of bilateral inguinal hernia repair History of fusion of cervical spine History of heart surgery History of tonsillectomy and adenoidectomy History of umbilical hernia repair Status post mechanical aortic valve replacement Social History Social History Are you a primary career technical counselor to a significant other at home: No Do you presently have visiting nurse or other home services: No Patient Tobacco Use Status: Never used Tobacco Second Hand Smoke Exposure: No Use of substances other than those prescribed or required for medical reasons: No Have you been hit, kicked, punched, or otherwise hurt by someone within the past year? If so, by whom?: No Are you DNR?: No Advance Directives: No Advance Directives Information Provided: Yes (mother) Advance Directives on File: No Recently lost weight without trying: No Eating poorly because of decreased appetite: No Nutrition Risks: No Nutritional Risk Poor oral hygiene: No (intact teeth) Meds Allergies Allergy/AdvReac Type Severity Reaction Status Date / Time No Known Allergies Allergy Verified 10/26/22 10:56 Home Medications Medication Instructions Recorded Confirmed Last Taken Type colchicine 0.6 mg tablet 0.6 mg PO BID 01/07/21 11/09/22 Unknown History metoprolol succinate 50 mg 50 mg PO DAILY 01/07/21 11/09/22 Unknown History tablet,extended release 24 hr clobetasol 0.05 % topical gel 1 appl topical DAILY 09/15/21 11/09/22 Unknown History albuterol sulfate 90 mcg/actuation 0 mcg inhalation 01/12/22 10/26/22 Unknown History aerosol inhaler allopurinol 300 mg tablet 150 mg PO DAILY 03/18/22 11/09/22 Unknown History magnesium oxide 400 mg PO DAILY 07/13/22 11/10/22 Unknown History metolazone 2.5 mg tablet 2.5 mg PO .COMPLEX 07/20/22 11/09/22 Unknown History potassium chloride 20 mEq 40 meq PO TID 07/20/22 11/10/22 Unknown History tablet,extended release spironolactone 25 mg tablet 75 mg PO BID 07/20/22 11/10/22 Unknown History torsemide 60 mg tablet See Rx Instructions PO BID 10/12/22 11/09/22 Unknown History penicillin V potassium 500 mg 500 mg PO ONCE proph antibiotic 11/10/22 11/10/22 Unknown History tablet Assessment and Plan Final Anesthetic Review NPO: Yes ASA Class: III and IV Patient Risk: High Procedure Risk: Low Anesthetic Plan Anesthetic Plan: MAC: Disposition: Standard PACU
[2022-11-24 09:10] VITALS: BP 112/79; PULSE 89; RESP 20; TEMP 36.5; O2SAT 98
--- NOTE | 2022-11-24 09:14 | PM.OP ---
Brief Operative Note Date of Service: 11/24/22 Pre-op diagnosis: Screening, rectal bleeding Post-op diagnosis: other (Colon polyp, Internal hemorrhoids, Diverticulosis) Procedure: Colonoscopy to the cecum and TI with hot snare polypectomy of proximal ascending colon polyp with placement of 1 Resolution clip Surgeon: Gurjit Alejandre Anesthesia: MAC Was an Software Design Engineer used for this Procedure?: No Estimated blood loss (mL): 0 Pathology: other (A. Ascending colon polyp) Condition: stable Disposition: PACU
[2022-11-24 09:25] VITALS: BP 112/79; PULSE 99; RESP 20; O2SAT 98
[2022-11-24 09:40] VITALS: BP 109/64; PULSE 94; RESP 20; TEMP 36.4; O2SAT 95
== END 2022-11-24 10:20 | disposition home or self-care (01) ==
PROVIDERS: PCP Internal Medicine; Visit Provider Internal Medicine
PROC: 0DJD8ZZ Inspection of Lower Intestinal Tract, Via Natural or Artificial Opening Endoscopic (ICD-10-PCS; CPT 45378; principal; 2022-11-24 08:30)
DX: K62.5 Hemorrhage of anus and rectum (principal); D12.2 Benign neoplasm of ascending colon; K57.30 Diverticulosis of large intestine without perforation or abscess without bleeding; K64.8 Other hemorrhoids
CPT/HCPCS: 45385; 36415; 80048; 85610; 88305; J0290; J1580

== ENCOUNTER → 2022-11-25 15:17 | Outpatient (BNVA) | payer OTHER, SELFPAY | PROVIDERS: PCP Internal Medicine; Visit Provider Internal Medicine ==

== ENCOUNTER → 2022-11-26 11:53 | Outpatient (BNVA) | payer OTHER, SELFPAY | PROVIDERS: PCP Internal Medicine; Visit Provider Internal Medicine ==

== ENCOUNTER 2022-11-30 10:38 | Outpatient (REF) | payer OTHER, SELFPAY ==
[2022-11-30 11:13] LABS: Calcium 10.3 mg/dL (8.4-10.2); Potassium 4.2 mmol/L (3.3-5.1)
== END 2022-11-30 10:39 | disposition home or self-care (01) ==
LOC: HO.LNP 10:38
PROVIDERS: PCP Internal Medicine; Visit Provider Internal Medicine
DX: E78.5 Hyperlipidemia, unspecified (principal); E83.52 Hypercalcemia
CPT/HCPCS: 82310; 84132

== ENCOUNTER → 2022-12-03 10:44 | Outpatient (BNVA) | payer OTHER, SELFPAY | PROVIDERS: PCP Internal Medicine; Visit Provider Internal Medicine ==

== ENCOUNTER → 2022-12-14 14:39 | Outpatient (BNVA) | payer OTHER, SELFPAY | PROVIDERS: PCP Internal Medicine; Visit Provider Internal Medicine ==

== ENCOUNTER → 2022-12-21 08:10 | Outpatient (BNVA) | payer OTHER, SELFPAY | PROVIDERS: PCP Internal Medicine; Visit Provider Internal Medicine ==

== ENCOUNTER → 2022-12-28 08:32 | Outpatient (BNVA) | payer OTHER, SELFPAY | PROVIDERS: PCP Internal Medicine; Visit Provider Internal Medicine ==

== ENCOUNTER → 2023-01-04 09:57 | Outpatient (BNVA) | payer OTHER, SELFPAY | PROVIDERS: PCP Internal Medicine; Visit Provider Internal Medicine ==

== ENCOUNTER → 2023-01-11 13:20 | Outpatient (BNVA) | payer OTHER, SELFPAY | PROVIDERS: PCP Internal Medicine; Visit Provider Internal Medicine ==

== ENCOUNTER → 2023-01-25 11:01 | Outpatient (BNVA) | payer OTHER, SELFPAY | PROVIDERS: PCP Internal Medicine; Visit Provider Internal Medicine ==

== ENCOUNTER → 2023-01-28 09:56 | Outpatient (BNVA) | payer OTHER, SELFPAY | PROVIDERS: PCP Internal Medicine; Visit Provider Internal Medicine ==

== ENCOUNTER → 2023-02-08 11:08 | Outpatient (BNVA) | payer OTHER, SELFPAY | PROVIDERS: PCP Internal Medicine; Visit Provider Internal Medicine ==

== ENCOUNTER → 2023-02-22 08:37 | Outpatient (BNVA) | payer OTHER, SELFPAY | PROVIDERS: PCP Internal Medicine; Visit Provider Internal Medicine ==

== ENCOUNTER → 2023-03-08 07:58 | Outpatient (BNVA) | payer OTHER, SELFPAY | PROVIDERS: PCP Internal Medicine; Visit Provider Internal Medicine ==

== ENCOUNTER 2023-03-17 07:59 | Outpatient (AMB) | payer OTHER, SELFPAY ==
--- NOTE | 2023-03-17 08:12 | MHC.OFFVISCO ---
Intake Intake Visit Reasons: Anticoagulation Allergies No Known Allergies Allergy (Verified 03/17/23 08:12) Medication List - Last Reconciled 03/17/23 by Mishel Logan RN albuterol sulfate 90 mcg/actuation 0 mcg inhalation allopurinol 150 mg PO DAILY clobetasol 0.05% 1 appl topical DAILY colchicine (gout) 0.6 mg PO BID magnesium oxide 400 mg PO DAILY metolazone 2.5 mg orally twice a week; metoprolol succinate ER 75 mg PO DAILY potassium chloride ER 40 mEq PO TID spironolactone 75 mg PO BID torsemide 60mg po qam /40mg poq pm orally; warfarin 5 mg See Protocol PO DAILY Nursing Note meter to meter correlation INR: 2.6 in therapeutic range clinic meter / home meter 2.6 meter to meter demonstrated excellet POC skills and knowledge of meter Medications and supplements reviewed- updated No changes in health, diet, medications, or supplements, Denies any signs and symptoms of bleeding or bruising or clotting. Bleeding, bruising, clotting discussed Nutritional guidance given Dose: keep same 10mg x 2 days/ 7.5mg x 5 days F/U INR: 2 weeks Patient verbalizes understanding of instructions given Anti-Coag Initial Assessment Social Hx Patient Tobacco Use Status: Never used Tobacco Coding Level of Care Code Est Patient Level 1 Diagnoses Current use of anticoagulant therapy Z79.01 Assessment & Plan Assessment & Plan (1) Current use of anticoagulant therapy: Code(s): Z79.01 - long term (current) use of anticoagulants Category: Medical
[2023-03-17 08:13] LABS: Prothrombin Time Whole Bld POC 31.4 sec (11.1-13.5); ~PT, ~INR - Anti Coag Clinic 2.6 (0.9-1.1)
== END 2023-03-17 08:24 | disposition home or self-care (01) ==
LOC: HO.ACS 07:59
PROVIDERS: PCP Internal Medicine; Visit Provider Internal Medicine
DX: Z79.01 Long term (current) use of anticoagulants (principal)

== ENCOUNTER → 2023-03-17 07:59 | Outpatient (BNVA) | payer OTHER, SELFPAY | PROVIDERS: PCP Internal Medicine; Visit Provider Internal Medicine | DX: Z95.2 Presence of prosthetic heart valve (principal); Z51.81 Encounter for therapeutic drug level monitoring; Z79.01 Long term (current) use of anticoagulants | CPT/HCPCS: 85610; 99211 ==

== ENCOUNTER → 2023-03-29 08:23 | Outpatient (BNVA) | payer OTHER, SELFPAY | PROVIDERS: PCP Internal Medicine; Visit Provider Internal Medicine ==

== ENCOUNTER 2023-04-08 10:28 | Outpatient (REF) | payer OTHER, SELFPAY ==
[2023-04-08 10:34] LABS: MANUAL DIFF FLAG NO
[2023-04-08 11:17] LABS: Basophils Absolute Auto 0.1 X10*3/uL (0.0-0.2); Basophils Percent Auto 0.9 % (0-2); Eosinophils Absolute Auto 0.5 X10*3/uL (0.0-0.4); Eosinophils Percent Auto 3.9 % (0-4); Hematocrit 44.4 % (42.0-52.0); Imm Gran Abs Auto 0.11 X10*3/uL (0.00-0.03); Imm Gran Pct Auto 0.9 % (0.0-0.4); Lymphocytes Absolute Auto 1.8 X10*3/uL (1.2-4.9); Mean Corpuscular HGB Conc 33.8 g/dl (31.0-36.0); Mean Corpuscular Volume 85.7 fL (80.0-98.0); Monocytes Absolute Auto 1.1 X10*3/uL (0.1-1.2); Monocytes Percent Auto 9.2 % (2-11); Neutrophils Absolute Auto 8.2 x10*3/uL (2.0-8.3); Neutrophils Percent Auto 70.1 % (45-73); Platelet Count 252 X10*3/uL (160-400); Red Blood Count 5.18 X10*6/uL (4.60-5.80); Red Cell Distribution Width 13.1 % (11.0-16.0); White Blood Count 11.7 X10*3/uL (4.8-10.8)
[2023-04-08 11:30] LABS: Appearance Urine Clear; Color Urine Yellow; Glucose Urine UA 250 mg/dL (Negative); Leukocyte Esterase Urine Negative (Negative); Nitrite Urine Negative (Negative); PH 5.5 (5.0-9.0); Specific Gravity - Urine 1.015 (1.005-1.025); Urine Blood Negative (Negative); Urine Ketones Negative (Negative); Urine Protein Negative (Neg-Trace)
[2023-04-08 11:50] LABS: Alanine Aminotransferase 54 U/L (0-40); Albumin Level 4.6 g/dL (3.5-5.0); Alkaline Phosphatase 88 U/L (39-117); Anion Gap 16 (12-20); Aspartate Amino Transferase 35 U/L (5-37); Bilirubin Total 0.3 mg/dL (0.0-1.0); Blood Urea Nitrogen 18 mg/dL (9-16); Calcium 10.4 mg/dL (8.4-10.2); Carbon Dioxide 36 mmol/L (22-29); Chloride 87 mmol/L (96-108); Cholesterol 267 mg/dL (<200); Estimated Glomerular Filt Rate > 60; Glucose Fasting 175 mg/dL (60-99); HDL Cholesterol 44 mg/dL (>40); LDL Cholesterol Calculated 187 mg/dL (<100); Magnesium 2.1 mg/dL (1.6-2.6); Potassium 3.5 mmol/L (3.3-5.1); Sodium 135 mmol/L (135-145); Total Protein 8.3 g/dL (6.5-8.0); Triglycerides 183 mg/dL (<150)
[2023-04-08 12:02] LABS: PSA,Total (Free>4and<10) 0.44 ng/mL (0.00-4.00)
[2023-04-08 12:03] LABS: Estimated Average Glucose 180 mg/dL; Hemoglobin A1c % 7.9 % (<6.0)
[2023-04-08 12:23] LABS: Creatinine Urine 88.34 mg/dL; Microalbum/Creatinine Ratio Ur 10.1 ug/mg cr (<30)
== END 2023-04-08 10:29 | disposition home or self-care (01) ==
LOC: HO.LNP 10:28
PROVIDERS: Visit Provider Internal Medicine
DX: Z00.00 Encounter for general adult medical examination without abnormal findings (principal); I50.22 Chronic systolic (congestive) heart failure; R73.03 Prediabetes; E83.42 Hypomagnesemia; Z12.5 Encounter for screening for malignant neoplasm of prostate
CPT/HCPCS: 80053; 80061; 81003; 82043; 82570; 83036; 83735; 84153; 85025

== ENCOUNTER → 2023-04-12 10:17 | Outpatient (BNVA) | payer OTHER, SELFPAY | PROVIDERS: PCP Internal Medicine; Visit Provider Internal Medicine ==

== ENCOUNTER → 2023-04-26 08:54 | Outpatient (BNVA) | payer OTHER, SELFPAY | PROVIDERS: PCP Internal Medicine; Visit Provider Internal Medicine ==

== ENCOUNTER → 2023-05-03 09:51 | Outpatient (BNVA) | payer OTHER, SELFPAY | PROVIDERS: PCP Internal Medicine; Visit Provider Internal Medicine ==

== ENCOUNTER → 2023-05-10 12:12 | Outpatient (BNVA) | payer OTHER, SELFPAY | PROVIDERS: PCP Internal Medicine; Visit Provider Internal Medicine ==

== ENCOUNTER 2023-05-11 08:11 | Outpatient (AMB) | payer OTHER, SELFPAY ==
--- NOTE | 2023-05-11 08:22 | A.OFFVIS_ITS ---
Intake VS Expanded 05/11/23 08:26 05/11/23 08:42 Height 5 ft 4 in 5 ft 4 in Weight 228 lb 6.382 oz 228 lb BMI 39.2 39.1 Intake Visit Reasons: DM2/ LVM Allergies No Known Allergies Allergy (Verified 05/10/23 12:12) HPI Nutrition Presentation Details Pt presents for MNT for T2DM. The Pt was referred by Dr. Maurisio Tsang Pt's A1c in 03/2023 at 7.9%. Pt reports having hx of CHF since around 2013. Meal pattern: reports not having meal time scheduled during the day prepares meals at home 3-4 x/wk , eats out 2-3 times/wk B: may be : fruits/cereal special k no milk , water L: soup (homemade noodles/vegetables/ chicken, whole wheat pasta )water, D: eating out varies (meat/starch/non starchy veg or pizza) snacks: varies: fruits/pastries dairy: with rahel flavor (3-4 /day fruits: 3-4 /d ve serving/d fish: dislikes Does not monitor BG/wants to work on diet modifications VTR-Mdpvdsb-Zh.Jeor Equation Height 5 ft 4 in Weight 228 lb Resting Metabolic Rate 1822.92 Calculated Activity Level Sedentary Calories Needed to Maintain Weight 2187.50 Diagnosis Nutrition problem #1 excessive energy intake As related to (etiology) #1 diagnosis As evidenced by (sign/symptom) #1 no prior educ - nutri rec (re DM diet concepts) Learning/Education Readiness to learn good Stages of change preparation Educational materials provided Yes (meal planning) Most Recent Diabetes Results: Microalb/Creat Ratio 10.1 ug/mg cr (<30) 04/08/23 Cholesterol 267 mg/dL (<200) H 04/08/23 HDL Cholesterol 44 mg/dL (>40) 04/08/23 Triglycerides 183 mg/dL (<150) H 04/08/23 Creatinine 1.08 mg/dL (0.5-1.4) 04/08/23 Blood Urea Nitrogen 18 mg/dL (9-16) H 04/08/23 Sodium 135 mmol/L (135-145) 04/08/23 Potassium 3.5 mmol/L (3.3-5.1) 04/08/23 Chloride 87 mmol/L (96-108) L 04/08/23 Carbon Dioxide 36 mmol/L (22-29) H 04/08/23 Calcium 10.4 mg/dL (8.4-10.2) H 04/08/23 AST 35 U/L (5-37) 04/08/23 ALT 54 U/L (0-40) H 04/08/23 Total Protein 8.3 g/dL (6.5-8.0) H 04/08/23 Albumin 4.6 g/dL (3.5-5.0) 04/08/23 [facility] Medical History CHF exacerbation Gout History of difficult intubation On anticoagulant therapy On beta bunny at home SINA (obstructive sleep apnea) Palpitations Prophylactic antibiotic PVCs (premature ventricular contractions) Subaortic membrane Surgical History History of bilateral inguinal hernia repair History of fusion of cervical spine History of heart surgery History of tonsillectomy and adenoidectomy History of umbilical hernia repair Status post mechanical aortic valve replacement Social History Are you a primary manager intensive care unit to a significant other at home: No Do you presently have visiting nurse or other home services: No Patient Tobacco Use Status: Never used Tobacco Second Hand Smoke Exposure: No Assessment & Plan Assessment & Plan (1) T2DM (type 2 diabetes mellitus): Code(s): E11.9 - Type 2 diabetes mellitus without complications Plan: wt: 104 kg (04/2023) Est kcal needs as per MSJ: 2200 (40% carb, 30% protein/fat) Est fluid needs as per 25 ml/d: 2600 ml/d - unless otherwise specified by Est prot per day as per 1 g/kg bw: 104 g Recommend fiber intake : 8-10 g per day and gradually increase to 25-28 g per day for women and 35-38 g for men or as tolerated Recommend sodium intake per day : less than 1500 mg less than 2000 mg Educated patient on: ( R = reviewed V = verbalizes understanding N/R = needs review N/A = not applicable * Food sources of carbohydrate, adequate serving sizes and its role in various health conditions: R * Differences between complex carbohydrates a simple carbohydrates, role of fiber in diet: R * Differences between types of fats and role in diet (mono on saturated fat fatty acids, saturated fatty acids, trans fats): NR * Food sources of sodium in salt and healthy modifications for heart health in kidney health: NR * Vitamins and minerals: NR * Healthy plate method concept: R * Physical activity: Benefits a precaution: NR * Hypoglycemia protocol (rule of 15): NR * Dietary prevention of Hyperglycemia: R Patient Instructions: Work on reducing total carb per meal to 60 g following healthy plate method Reduce snack to 2 or less per day consisting of 0-20 g carbs Practice mindful eating strategies Coding Level of Care Code Nutr Indiv Intake (57577) Diagnoses T2DM (type 2 diabetes mellitus) E11.9 Time Spent (min) 40
[2023-05-11 08:26] VITALS: BMI 39.2
[2023-05-11 08:42] VITALS: BMI 39.1
== END 2023-05-11 09:19 | disposition home or self-care (01) ==
PROVIDERS: PCP Internal Medicine; Visit Provider Dietitian, Registered
DX: E11.9 Type 2 diabetes mellitus without complications (principal)

== ENCOUNTER → 2023-05-11 08:11 | Outpatient (BNVA) | payer OTHER, SELFPAY | PROVIDERS: PCP Internal Medicine; Visit Provider Dietitian, Registered | DX: E11.9 Type 2 diabetes mellitus without complications (principal); Z71.3 Dietary counseling and surveillance | CPT/HCPCS: 97802 ==

== ENCOUNTER → 2023-05-24 11:54 | Outpatient (BNVA) | payer OTHER, SELFPAY | PROVIDERS: PCP Internal Medicine; Visit Provider Internal Medicine ==

== ENCOUNTER → 2023-05-27 08:33 | Outpatient (BNVA) | payer OTHER, SELFPAY | PROVIDERS: PCP Internal Medicine; Visit Provider Internal Medicine ==

== ENCOUNTER 2023-06-06 10:21 | Outpatient (AMB) | payer OTHER, SELFPAY ==
[2023-06-06 10:44] VITALS: BMI 39.4
--- NOTE | 2023-06-06 10:44 | MHC.AMNUTRGE ---
Intake VS Expanded 06/06/23 10:44 Height 5 ft 4 in Weight 229 lb 11.547 oz BMI 39.4 Intake Visit Reasons: T2DM/LVM Allergies No Known Allergies Allergy (Verified 06/14/23 15:45) HPI Nutrition Presentation Details Pt presents for MNT f/u for T2DM. Pt did not bring glucometer to this appt, he reports having glucose above 200. Pt was advised to contact PCP and discuss BG level for further assessment. Pt reports not making diet modifications, related to holidays. Most Recent Diabetes Results: No Data to Display [facility] Medical History CHF exacerbation Gout History of difficult intubation On anticoagulant therapy On beta bunny at home SINA (obstructive sleep apnea) Palpitations Prophylactic antibiotic PVCs (premature ventricular contractions) Subaortic membrane Surgical History History of bilateral inguinal hernia repair History of fusion of cervical spine History of heart surgery History of tonsillectomy and adenoidectomy History of umbilical hernia repair Status post mechanical aortic valve replacement Social History Are you a primary career development associate to a significant other at home: No Do you presently have visiting nurse or other home services: No Patient Tobacco Use Status: Never used Tobacco Second Hand Smoke Exposure: No Assessment & Plan Assessment & Plan (1) T2DM (type 2 diabetes mellitus): Code(s): E11.9 - Type 2 diabetes mellitus without complications Plan: wt: 104 kg (04/2023) Est kcal needs as per MSJ: 2200 (40% carb, 30% protein/fat) Est fluid needs as per 25 ml/d: 2600 ml/d - unless otherwise specified by Est prot per day as per 1 g/kg bw: 104 g Recommend fiber intake : 8-10 g per day and gradually increase to 25-28 g per day for women and 35-38 g for men or as tolerated Recommend sodium intake per day : less than 1500 mg less than 2000 mg Educated patient on: ( R = reviewed V = verbalizes understanding N/R = needs review N/A = not applicable Food sources of carbohydrate, adequate serving sizes and its role in various health conditions: R Differences between complex carbohydrates a simple carbohydrates, role of fiber in diet: R Differences between types of fats and role in diet (mono on saturated fat fatty acids, saturated fatty acids, trans fats): NR Food sources of sodium in salt and healthy modifications for heart health in kidney health: R Vitamins and minerals: NR Healthy plate method concept: R Physical activity: Benefits a precaution: NR Hypoglycemia protocol (rule of 15): NR Dietary prevention of Hyperglycemia: R Patient Instructions: Resume working on meal planning, portions sizes. see meal ideas as reference keep a food record Reduce your total carbohydrate to less than 60 g at meals , 4 meals/day Coding Level of Care Code Nutr Indiv Subseq (46891) Diagnoses T2DM (type 2 diabetes mellitus) E11.9 Time Spent (min) 30
== END 2023-06-06 11:25 | disposition home or self-care (01) ==
PROVIDERS: PCP Internal Medicine; Visit Provider Dietitian, Registered
DX: E11.9 Type 2 diabetes mellitus without complications (principal)

== ENCOUNTER → 2023-06-06 10:21 | Outpatient (BNVA) | payer OTHER, SELFPAY | PROVIDERS: PCP Internal Medicine; Visit Provider Dietitian, Registered | DX: E11.9 Type 2 diabetes mellitus without complications (principal); Z71.3 Dietary counseling and surveillance | CPT/HCPCS: 97803 ==

== ENCOUNTER → 2023-06-07 12:36 | Outpatient (BNVA) | payer OTHER, SELFPAY | PROVIDERS: PCP Internal Medicine; Visit Provider Internal Medicine ==

== ENCOUNTER → 2023-06-10 13:21 | Outpatient (BNVA) | payer OTHER, SELFPAY | PROVIDERS: PCP Internal Medicine; Visit Provider Internal Medicine ==

== ENCOUNTER → 2023-06-14 15:37 | Outpatient (BNVA) | payer OTHER, SELFPAY | PROVIDERS: PCP Internal Medicine; Visit Provider Internal Medicine ==

== ENCOUNTER → 2023-06-17 15:01 | Outpatient (BNVA) | payer OTHER, SELFPAY | PROVIDERS: PCP Internal Medicine; Visit Provider Internal Medicine ==

== ENCOUNTER → 2023-06-20 16:05 | Outpatient (BNVA) | payer OTHER, SELFPAY | PROVIDERS: PCP Internal Medicine; Visit Provider Internal Medicine ==

== ENCOUNTER → 2023-06-24 09:37 | Outpatient (BNVA) | payer OTHER, SELFPAY | PROVIDERS: PCP Internal Medicine; Visit Provider Internal Medicine ==

== ENCOUNTER → 2023-07-05 08:51 | Outpatient (BNVA) | payer OTHER, SELFPAY | PROVIDERS: PCP Internal Medicine; Visit Provider Internal Medicine ==

== ENCOUNTER → 2023-07-12 10:24 | Outpatient (BNVA) | payer OTHER, SELFPAY | PROVIDERS: PCP Internal Medicine; Visit Provider Internal Medicine ==

== ENCOUNTER 2023-07-19 08:32 | Outpatient (AMB) | payer OTHER, SELFPAY ==
--- NOTE | 2023-07-19 10:47 | MHC.OFFVISCO ---
Intake Intake Visit Reasons: Anticoagulation Allergies No Known Allergies Allergy (Verified 07/19/23 10:39) Medication List - Last Reconciled 07/19/23 by Kasandra Lockwood RN albuterol sulfate 90 mcg/actuation 0 mcg inhalation allopurinol 150 mg PO DAILY clobetasol 0.05% 1 appl topical DAILY colchicine 0.6 mg PO BID ergocalciferol (vitamin D2) (Vitamin D2) 1,250 mcg PO QWEEK magnesium oxide 400 mg PO DAILY metolazone 2.5 mg orally twice a week; metoprolol succinate ER 75 mg PO DAILY potassium chloride ER 10 mEq, 2 tabs BID orally; spironolactone 100 mg PO BID torsemide 60mg po qam /40mg poq pm orally; warfarin 5 mg See Protocol PO DAILY Nursing Note INR received from [facility] INR?? 3.4 in therapeutic range OF 2.5-3.5 Changes indicated per patient assessment questionnaire, potassium and spironolactone both increased. Pt states he feels much better. Appetite is back to normal. Pt will balance greens and reds on food list. No signs and symptoms of bleeding or bruising or clotting Retest 2 weeks Anti-Coag Initial Assessment Social Hx Patient Tobacco Use Status: Never used Tobacco Coding Level of Care Code Est Patient Level 1 Diagnoses Current use of anticoagulant therapy Z79.01 Results AMB INR Fingerstick AMB INR Fingerstick 3.4 Last Edit by Kasandra Lockwood RN on 07/19/23 10:46 [facility] Assessment & Plan Assessment & Plan (1) Current use of anticoagulant therapy: Code(s): Z79.01 - intermediate (current) use of anticoagulants Category: Medical
== END 2023-07-19 10:59 | disposition home or self-care (01) ==
LOC: HO.ACS 08:32
PROVIDERS: PCP Internal Medicine; Visit Provider Internal Medicine
DX: Z79.01 Long term (current) use of anticoagulants (principal)

== ENCOUNTER → 2023-07-19 08:32 | Outpatient (BNVA) | payer OTHER, SELFPAY | PROVIDERS: PCP Internal Medicine; Visit Provider Internal Medicine | DX: Z95.2 Presence of prosthetic heart valve (principal); Z51.81 Encounter for therapeutic drug level monitoring; Z79.01 Long term (current) use of anticoagulants | CPT/HCPCS: 99211 ==

== ENCOUNTER → 2023-08-02 10:52 | Outpatient (BNVA) | payer OTHER, SELFPAY | PROVIDERS: PCP Internal Medicine; Visit Provider Internal Medicine ==

== ENCOUNTER → 2023-08-16 14:52 | Outpatient (BNVA) | payer OTHER, SELFPAY | PROVIDERS: PCP Internal Medicine; Visit Provider Internal Medicine ==

== ENCOUNTER → 2023-08-30 10:18 | Outpatient (BNVA) | payer OTHER, SELFPAY | PROVIDERS: PCP Internal Medicine; Visit Provider Internal Medicine ==

== ENCOUNTER → 2023-09-13 10:22 | Outpatient (BNVA) | payer OTHER, SELFPAY | PROVIDERS: PCP Internal Medicine; Visit Provider Internal Medicine ==

== ENCOUNTER 2023-09-20 06:15 | Outpatient (REF) | payer OTHER, SELFPAY ==
--- NOTE | ~2023-09-20 | XR_ITS ---
EXAMINATION: XR HIP, LEFT CLINICAL INFORMATION: Left hip pain COMPARISON: None available. TECHNIQUE: Two views of the left hip. FINDINGS: No fracture. Alignment is anatomic. Hip joint space is maintained. Soft tissues are unremarkable. XR/XR hip LT min 2V IMPRESSION: Normal left hip. No interval change
[2023-09-20 10:53] LABS: MANUAL DIFF FLAG NO
[2023-09-20 11:33] LABS: Basophils Absolute Auto 0.1 X10*3/uL (0.0-0.2); Basophils Percent Auto 0.7 % (0-2); Eosinophils Absolute Auto 0.2 X10*3/uL (0.0-0.4); Eosinophils Percent Auto 1.9 % (0-4); Hematocrit 39.6 % (42.0-52.0); Hemoglobin 13.4 g/dl (14.0-18.0); Imm Gran Pct Auto 0.9 % (0.0-0.4); Lymphocytes Absolute Auto 1.4 X10*3/uL (1.2-4.9); Lymphocytes Percent Auto 11.8 % (20-40); Mean Corpuscular HGB Conc 33.8 g/dl (31.0-36.0); Mean Corpuscular Hemoglobin 29.1 pg (27.0-33.0); Mean Corpuscular Volume 85.9 fL (80.0-98.0); Mean Platelet Volume 10.6 fL (9.4-12.4); Monocytes Absolute Auto 1.1 X10*3/uL (0.1-1.2); Monocytes Percent Auto 9.3 % (2-11); Neutrophils Absolute Auto 8.6 x10*3/uL (2.0-8.3); Neutrophils Percent Auto 75.4 % (45-73); Platelet Count 263 X10*3/uL (160-400); Red Blood Count 4.61 X10*6/uL (4.60-5.80); Red Cell Distribution Width 14.3 % (11.0-16.0); White Blood Count 11.4 X10*3/uL (4.8-10.8)
[2023-09-20 11:57] LABS: Alanine Aminotransferase 26 U/L (0-40); Albumin Level 4.7 g/dL (3.5-5.0); Alkaline Phosphatase 75 U/L (39-117); Anion Gap 17 (12-20); Aspartate Amino Transferase 24 U/L (5-37); Bilirubin Total 0.5 mg/dL (0.0-1.0); Blood Urea Nitrogen 58 mg/dL (9-16); Carbon Dioxide 34 mmol/L (22-29); Chloride 82 mmol/L (96-108); Estimated Glomerular Filt Rate 42; Glucose Fasting 141 mg/dL (60-99); Sodium 128 mmol/L (135-145); Total Protein 8.5 g/dL (6.5-8.0)
== END 2023-09-20 06:16 | disposition home or self-care (01) ==
LOC: HO.XRAY 06:15
PROVIDERS: PCP Internal Medicine; Visit Provider Internal Medicine
DX: M25.552 Pain in left hip (principal); D72.829 Elevated white blood cell count, unspecified; R79.9 Abnormal finding of blood chemistry, unspecified
CPT/HCPCS: 36415; 73502; 80053; 85025

== ENCOUNTER 2023-10-01 08:24 | Outpatient (REF) | payer OTHER, SELFPAY ==
[2023-10-01 09:26] LABS: Appearance Urine Clear; Color Urine Yellow; Glucose Urine UA Negative (Negative); Leukocyte Esterase Urine Negative (Negative); Nitrite Urine Negative (Negative); Specific Gravity - Urine <= 1.005 (1.005-1.025); Urine Blood Negative (Negative); Urine Ketones Negative (Negative); Urine Protein Negative (Neg-Trace)
[2023-10-01 10:40] LABS: Anion Gap 19 (12-20); Blood Urea Nitrogen 35 mg/dL (9-16); Carbon Dioxide 30 mmol/L (22-29); Chloride 87 mmol/L (96-108); Estimated Glomerular Filt Rate 43; Glucose Random 107 mg/dL (60-115); Potassium 4.4 mmol/L (3.3-5.1); Sodium 132 mmol/L (135-145)
[2023-10-01 10:44] LABS: PTH Intact Intraoperative 107.9 pg/mL (8.7-77.1)
[2023-10-06 16:08] LABS: VITAMIN D (1,25 OH) D3 <8 pg/mL; Vit D (1,25-Dihydroxy) Total 29 pg/mL (18-72); Vitamin D (1,25 OH) D2 29 pg/mL
== END 2023-10-01 08:25 | disposition home or self-care (01) ==
LOC: HO.LAB 08:24
PROVIDERS: Absent Provider Internal Medicine Nephrology; PCP Internal Medicine; Visit Provider Internal Medicine Cardiovascular Disease
DX: E87.8 Other disorders of electrolyte and fluid balance, not elsewhere classified (principal); E87.6 Hypokalemia; E83.52 Hypercalcemia
CPT/HCPCS: 36415; 80048; 81003; 82652; 83735; 83970

== ENCOUNTER → 2023-10-04 10:47 | Outpatient (BNVA) | payer OTHER, SELFPAY | PROVIDERS: PCP Internal Medicine; Visit Provider Internal Medicine ==

== ENCOUNTER → 2023-10-11 10:46 | Outpatient (BNVA) | payer OTHER, SELFPAY | PROVIDERS: PCP Internal Medicine; Visit Provider Internal Medicine ==

== ENCOUNTER → 2023-10-18 10:54 | Outpatient (BNVA) | payer OTHER, SELFPAY | PROVIDERS: PCP Internal Medicine; Visit Provider Internal Medicine ==

== ENCOUNTER → 2023-10-25 10:48 | Outpatient (BNVA) | payer OTHER, SELFPAY | PROVIDERS: PCP Internal Medicine; Visit Provider Internal Medicine ==

== ENCOUNTER → 2023-11-15 10:23 | Outpatient (BNVA) | payer OTHER, SELFPAY | PROVIDERS: PCP Internal Medicine; Visit Provider Internal Medicine ==

== ENCOUNTER → 2023-11-22 10:26 | Outpatient (BNVA) | payer OTHER, SELFPAY | PROVIDERS: PCP Internal Medicine; Visit Provider Internal Medicine ==

== ENCOUNTER → 2023-11-29 14:51 | Outpatient (BNVA) | payer OTHER, SELFPAY | PROVIDERS: PCP Internal Medicine; Visit Provider Internal Medicine ==

== ENCOUNTER → 2023-12-13 10:19 | Outpatient (BNVA) | payer OTHER, SELFPAY | PROVIDERS: PCP Internal Medicine; Visit Provider Internal Medicine ==

== ENCOUNTER → 2023-12-27 15:35 | Outpatient (BNVA) | payer OTHER, SELFPAY | PROVIDERS: PCP Internal Medicine; Visit Provider Internal Medicine ==

== ENCOUNTER → 2023-12-30 11:10 | Outpatient (BNVA) | payer OTHER, SELFPAY | PROVIDERS: PCP Internal Medicine; Visit Provider Internal Medicine ==

== ENCOUNTER → 2024-01-10 12:14 | Outpatient (BNVA) | payer OTHER, SELFPAY | PROVIDERS: PCP Internal Medicine; Visit Provider Internal Medicine ==

== ENCOUNTER → 2024-01-24 12:42 | Outpatient (BNVA) | payer OTHER, SELFPAY | PROVIDERS: PCP Internal Medicine; Visit Provider Internal Medicine ==

== ENCOUNTER → 2024-01-31 11:45 | Outpatient (BNVA) | payer OTHER, SELFPAY | PROVIDERS: PCP Internal Medicine; Visit Provider Internal Medicine ==

== ENCOUNTER → 2024-02-08 10:27 | Outpatient (BNVA) | payer OTHER, SELFPAY | PROVIDERS: PCP Internal Medicine; Visit Provider Internal Medicine ==

== ENCOUNTER 2024-02-10 13:27 | Outpatient (AMB) | payer OTHER, SELFPAY ==
[2024-02-10 13:55] LABS: ~PT, ~INR - Anti Coag Clinic 1.7 (0.9-1.1)
--- NOTE | 2024-02-10 14:38 | MHC.OFFVISCO ---
Intake Intake Visit Reasons: Anticoagulation Allergies No Known Allergies Allergy (Verified 02/10/24 13:52) Medication List - Last Reconciled 02/10/24 by Phoebe Herring RN albuterol sulfate 90 mcg/actuation 0 mcg inhalation allopurinol 150 mg PO DAILY clobetasol 0.05% 1 appl topical DAILY colchicine 0.6 mg PO BID ergocalciferol (vitamin D2) (Vitamin D2) 1,250 mcg PO QWEEK metformin ER 1,000 mg PO BID metoprolol succinate ER 75 mg PO DAILY spironolactone 100 mg PO BID torsemide 60 mg PO QAM warfarin 5 mg See Protocol PO DAILY Nursing Note INR RECEIVED FROM [facility] WAS 1.5. PT.CALLED TO REQUEST [facility] VISIT FOR VERIFICATION OF THIS INR. INR 1.7 IN [facility]. PT. STATES THAT HE HAS NOT MISSED ANY DOSES AND FEELS WELL. NO CP,SOB OR SX OF BLEEDING. SPOKE WITH : HE WILL CALL [facility]CRIPT FOR LOVENOX ( PT. IS 87 [address]) TO PHARMACY AND IS IN AGREEMENT WITH WARFARIN DOSING OF: 12.5MGM 2 DAYS 10MGM 1 DAY AND RETEST ON 02/12. PT.VERB.GOOD UNDERSTANDING OF DOSING INSTR. 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
== END 2024-02-10 16:13 | disposition home or self-care (01) ==
PROVIDERS: PCP Internal Medicine; Visit Provider Internal Medicine
DX: Z79.01 Long term (current) use of anticoagulants (principal)

== ENCOUNTER → 2024-02-10 13:27 | Outpatient (BNVA) | payer OTHER, SELFPAY | PROVIDERS: PCP Internal Medicine; Visit Provider Internal Medicine | DX: Z95.2 Presence of prosthetic heart valve (principal); Z79.01 Long term (current) use of anticoagulants; Z51.81 Encounter for therapeutic drug level monitoring | CPT/HCPCS: 85610; 99211 ==

== ENCOUNTER → 2024-02-13 12:14 | Outpatient (BNVA) | payer OTHER, SELFPAY | PROVIDERS: PCP Internal Medicine; Visit Provider Internal Medicine ==

== ENCOUNTER → 2024-02-17 13:34 | Outpatient (BNVA) | payer OTHER, SELFPAY | PROVIDERS: PCP Internal Medicine; Visit Provider Internal Medicine ==

== ENCOUNTER → 2024-02-20 12:01 | Outpatient (BNVA) | payer OTHER, SELFPAY | PROVIDERS: PCP Internal Medicine; Visit Provider Internal Medicine ==

== ENCOUNTER → 2024-02-28 09:43 | Outpatient (BNVA) | payer OTHER, SELFPAY | PROVIDERS: PCP Internal Medicine; Visit Provider Internal Medicine ==

== ENCOUNTER 2024-03-13 08:05 | Outpatient (AMB) | payer OTHER, SELFPAY ==
--- NOTE | 2024-03-13 08:20 | MHC.OFFVISCO ---
Intake Intake Visit Reasons: Anticoagulation Allergies No Known Allergies Allergy (Verified 03/13/24 08:08) Medication List - Last Reconciled 03/13/24 by Camila Gil RN albuterol sulfate 90 mcg/actuation 0 mcg inhalation allopurinol 150 mg PO DAILY colchicine 0.6 mg PO BID PRN metformin ER 1,000 mg PO BID metoprolol succinate ER 50 mg PO DAILY spironolactone 100 mg PO BID warfarin 5 mg See Protocol PO DAILY Nursing Note INR 2.0-?? out of therapeutic range of 2.5-3.5 Medications and supplements reviewed Patient status: pt at [facility] for meter to meter correlation. pt demonstrates good technique, error 5 on first attempt. memory check and matched x 5 previous Medications or supplements: med list reviewed and updated Diet: same Denies any signs and symptoms of bleeding or clotting or unusual bruising Bleeding, bruising, clotting discussed Nutritional guidance given: no greens for 2 days Dose: pt req increase warfarin dosing today and thur F/U INR Date : tue03/16/24?? Patient verbalizing understanding of instructions given. dr arnold called with low inr/dosing and f/u retest- spoke to len at 0839 Anti-Coag Initial Assessment Social Hx Patient Tobacco Use Status: Never used Tobacco Questionnaires HAS-BLED Does the patient had uncontrolled Hypertension?: No Does the patient have renal disease?: No Does the patient have liver disease?: No Does the patient have a history of stroke?: No Has the patient had major bleeding or predisposition to bleeding?: No Does the patient have labile INRs?: Yes Is the patient over 65 years of age?: No Is the patient on medications that gives them a predisposition to bleeding?: Yes Does the patient use alcohol?: No HAS-BLED Score: 2 CHADSVASC Age: <65 Gender: Male Does the patient have a history of CHF?: Yes Does the patient have a history of Hypertension?: No Does the patient have a history of Stroke/TIA/Thromboembolism?: No Does the patient have a history of Vascular Disease (prior UT, PAD or aortic plaque)?: Yes Does the patient have a history of Diabetes?: Yes CHADS VACS Score: 3 Veda Prediction Score Rsk VTE Active Cancer: No Previous VTE, excluding superficial vein thrombosis: No Reduced mobility: No Already known Thrombophilic Condition: No With-in last month Trauma and/or Surgery: No Elderly 70 year or older: No Heart and/or Respiratory Failure: Yes Acute Myocardial infarction and/or Ischemic Stroke: No Acute Infection and/or Rheumatologic Disorder: No Obesity (BMI 30 or greater): Yes Ongoing Hormonal Treatment: No Score: 2 Veda Score less than 4; Low Risk of VTE Veda Score 4 or greater; High Risk of VTE Coding Level of Care Code Est Patient Level 2 Diagnoses Current use of anticoagulant therapy Z79.01 Results AMB INR Fingerstick AMB INR Fingerstick 2.0 Last Edit by Camila Gil RN on 03/13/24 08:17 interface delay Assessment & Plan Assessment & Plan (1) Current use of anticoagulant therapy: Code(s): Z79.01 - 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
[2024-03-13 08:49] LABS: Prothrombin Time Whole Bld POC 24.5 sec (11.1-13.5)
== END 2024-03-13 08:40 | disposition home or self-care (01) ==
LOC: HO.ACS 08:05
PROVIDERS: PCP Internal Medicine; Visit Provider Internal Medicine
DX: Z79.01 Long term (current) use of anticoagulants (principal)

== ENCOUNTER → 2024-03-13 08:05 | Outpatient (BNVA) | payer OTHER, SELFPAY | PROVIDERS: PCP Internal Medicine; Visit Provider Internal Medicine | DX: Z95.2 Presence of prosthetic heart valve (principal); Z79.01 Long term (current) use of anticoagulants; Z51.81 Encounter for therapeutic drug level monitoring | CPT/HCPCS: 85610; 99212 ==

== ENCOUNTER → 2024-03-16 10:48 | Outpatient (BNVA) | payer OTHER, SELFPAY | PROVIDERS: PCP Internal Medicine; Visit Provider Internal Medicine ==

== ENCOUNTER 2024-04-23 06:13 | Outpatient (REF) | payer OTHER, SELFPAY ==
[2024-04-23 06:31] LABS: MANUAL DIFF FLAG NO
[2024-04-23 07:28] LABS: Basophils Absolute Auto 0.1 X10*3/uL (0.0-0.2); Eosinophils Absolute Auto 0.5 X10*3/uL (0.0-0.4); Eosinophils Percent Auto 4.2 % (0-4); Hematocrit 39.1 % (42.0-52.0); Hemoglobin 13.1 g/dl (14.0-18.0); Imm Gran Abs Auto 0.14 X10*3/uL (0.00-0.03); Imm Gran Pct Auto 1.2 % (0.0-0.4); Lymphocytes Absolute Auto 1.6 X10*3/uL (1.2-4.9); Lymphocytes Percent Auto 14.4 % (20-40); Mean Corpuscular HGB Conc 33.5 g/dl (31.0-36.0); Mean Corpuscular Hemoglobin 29.2 pg (27.0-33.0); Mean Corpuscular Volume 87.1 fL (80.0-98.0); Mean Platelet Volume 10.8 fL (9.4-12.4); Monocytes Absolute Auto 0.9 X10*3/uL (0.1-1.2); Monocytes Percent Auto 7.7 % (2-11); Neutrophils Absolute Auto 8.1 x10*3/uL (2.0-8.3); Neutrophils Percent Auto 71.5 % (45-73); Platelet Count 280 X10*3/uL (160-400); Red Blood Count 4.49 X10*6/uL (4.60-5.80); Red Cell Distribution Width 13.7 % (11.0-16.0); White Blood Count 11.3 X10*3/uL (4.8-10.8)
[2024-04-23 07:57] LABS: Creatinine Urine 36.02 mg/dL; Microalbum/Creatinine Ratio Ur 24.9 ug/mg cr (<30)
[2024-04-23 07:59] LABS: Parathyroid Hormone Intact 142.2 pg/mL (8.7-77.1)
[2024-04-23 08:03] LABS: Appearance Urine Clear; Color Urine Yellow; Glucose Urine UA Negative (Negative); Leukocyte Esterase Urine Negative (Negative); Nitrite Urine Negative (Negative); Urine Blood Negative (Negative); Urine Ketones Negative (Negative); Urine Protein Negative (Neg-Trace)
[2024-04-23 08:09] LABS: Bacteria Urine None Seen (None Seen); Hyaline Casts Urine 0-2 /LPF (0-2); RBC Urine 0-2 /HPF (0-2); Squamous Epithelial Cell Urine 0-2 /HPF (0-2); WBC Urine 0-5 /HPF (0-5)
[2024-04-23 08:17] LABS: Alanine Aminotransferase 31 U/L (0-40); Albumin Level 4.6 g/dL (3.5-5.0); Alkaline Phosphatase 69 U/L (39-117); Anion Gap 15 (12-20); Aspartate Amino Transferase 32 U/L (5-37); Bilirubin Total 0.3 mg/dL (0.0-1.0); Blood Urea Nitrogen 30 mg/dL (9-16); Calcium 10.5 mg/dL (8.4-10.2); Carbon Dioxide 31 mmol/L (22-29); Chloride 92 mmol/L (96-108); Cholesterol 241 mg/dL (<200); Estimated Glomerular Filt Rate 46; Glucose Fasting 125 mg/dL (60-99); HDL Cholesterol 41 mg/dL (>40); LDL Cholesterol Calculated 162 mg/dL (<100); Sodium 134 mmol/L (135-145); Total Protein 7.9 g/dL (6.5-8.0); Triglycerides 192 mg/dL (<150)
[2024-04-23 08:39] LABS: PSA,Total (Free>4and<10) 0.38 ng/mL (0.00-4.00)
== END 2024-04-23 06:14 | disposition home or self-care (01) ==
LOC: HO.LAB 06:13
PROVIDERS: PCP Internal Medicine; Visit Provider Internal Medicine
DX: Z00.00 Encounter for general adult medical examination without abnormal findings (principal); I50.22 Chronic systolic (congestive) heart failure; E78.00 Pure hypercholesterolemia, unspecified; E83.42 Hypomagnesemia; E11.9 Type 2 diabetes mellitus without complications; D72.829 Elevated white blood cell count, unspecified; Z12.5 Encounter for screening for malignant neoplasm of prostate
CPT/HCPCS: 36415; 80053; 80061; 81001; 82043; 82570; 83970; 84153; 85025

== ENCOUNTER → 2024-04-24 13:09 | Outpatient (BNVA) | payer OTHER, SELFPAY | PROVIDERS: PCP Internal Medicine; Visit Provider Internal Medicine ==

== ENCOUNTER → 2024-05-08 15:40 | Outpatient (BNVA) | payer OTHER, SELFPAY | PROVIDERS: PCP Internal Medicine; Visit Provider Internal Medicine ==

== ENCOUNTER → 2024-05-15 08:55 | Outpatient (BNVA) | payer OTHER, SELFPAY | PROVIDERS: PCP Internal Medicine; Visit Provider Internal Medicine ==

== ENCOUNTER → 2024-05-22 11:54 | Outpatient (BNVA) | payer OTHER, SELFPAY | PROVIDERS: PCP Internal Medicine; Visit Provider Internal Medicine ==

== ENCOUNTER 2024-05-30 06:18 | Outpatient (REF) | payer OTHER, SELFPAY ==
--- NOTE | ~2024-05-30 | XR_ITS ---
CLINICAL HISTORY: FELL ON STAIRS 5 view, chest and left ribs Comparison: None Findings: Minimally displaced left 5th lateral rib fracture. Central vascular prominence with diffuse interstitial opacities. No significant pleural effusion or pneumothorax. Prominent cardiac silhouette. Median sternotomy wires and clips. Annuloplasty ring. IMPRESSION: 1. Findings suggestive of pulmonary edema versus atypical infection. 2. Minimally displaced left 5th lateral rib fracture. This document has been electronically signed by: Wilder Mcduffie MD on 05/30/2024 07:03:45
--- OUTSIDE RECORDS SUMMARY | 2024-05-30 06:21 | XMS_ITS ---
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 Name Role Phone Lennox Tsang Primary Care Provider ALLERGIES Allergen (clinical drug ingredient) Drug/Non Drug Allergy documented on EMR Reaction Allergy Type Onset Date Status ibuprofen Ibuprofen bleeding Drug Allergy Active REASON FOR REFERRAL Reason HYPERPARATHYROIDISM TYPE 2 DIABETES WITHOUT COMPLICATION Diagnosis 1 Type 2 diabetes jaylene itus without complication, without long-term current use of insulin (E11.9) Diagnosis 2 Hyperparathyroidism (E21.3) Referral Organization Lennox Tsang MD Referring Provider First Name Lennox Referring Provider Last Name Sharan Referring Provider Speciality Internal M edicine Referred Provider Gerard De La Cruz Referred Provider Specialty Endocrinolog y Referral Priority Routine REASON FOR VISIT ANNUAL EXAM, CBACK PARATHYROID HORMONE INTACT MEDICATIONS Medication SIG (Take, Route, Frequency, Duration) Notes Start Date End Date Status Spironolactone 100 MG 1 tablet Orally BID Active Allopurinol 300 MG TAKE ONE TABLET BY MOUTH ONCE DAILY Orally Once a day for 90 days Active Warfarin Sodium 5 MG 2 tabs Orally Once a day for 90 days Active metFORMIN HCl 500 MG 2tablet with a meal Orally twice Active Torsemide 20 MG 2 tabs Q AM Orally Active Colchicine 0.6 MG TAKE ONE TABLET TWO TIMES A DAY for 10 Not-Taking Docusate Sodium 100 MG 1 capsule as need ed Orally twice a day Active Atorvastatin Calcium 20 MG 1 tablet Oral ly Once a day for 90 days 04/30/2024 Active Diprolene AF 0.05 % 1 application Externally Once a day for 90 days 04/14/2020 Active Albuterol Sulfate HFA 108 (90 Base) MCG/ACT 1 puff as needed Inhalation every 4 hrs for 30 days 05/06/2020 Active Metoprolol Succinate ER 50 MG 50mg Orally Once a day Activ e Celecoxib 200 MG 1 capsule with food Orally Once a day for 90 days Not-Taking SOCIAL HISTORY Tobacco Use: Social History Observation Description Date Details (start date - stop date) Never Smoker NA - NA Sex Assigned At : Social History Observation Description Sex Assigned At Unknown Tobacco Use/Smoking Question Answer Notes Patient is a nonsmoker Additional Findings: Tobacco Non-User Cu rrent non-smoker, currently using no form of tobacco Alcohol Screen Question Answer Notes Did you have a drink containing alcohol in the p ast year? No Points 0 Interpretation Negative VITAL SIGNS BMI 36.21 kg/m2 04/30/2024 Blood pressure systolic 98 mm Hg 04/30/20 24 Blood pressure diastolic 64 mm Hg 024 Height 64 in 04/30/2024 Weight 211 lbs 04/30/2024 weight is up 18 pounds since 01-02-24 Encounters Encounter Location Date Provider Diagnosis Lennox Tsang MD [address] [facility] [address] [place], [place] [phone] 04/30/2024 Lennox Tsang Hyperparathyroidism E21.3 ; Encounter for general adult medical examination without abnormal findings Z00.00 ; Hypercholesteremia E78.00 and Chronic systolic congestive heart failure I50.22 ASSESSMENTS Encounter Date Diagnosis Assessment Notes Treatment Notes Treatment Clinical Notes 04/30/2024 Hyperparathyroidism (ICD-10 - E21.3) referral to [facility] endocrine/ REFERRAL MADE TO ENDOCRINE , WILL FAX AFTER CASE LOCKED 04/30/2024 Encounter for genera l adult medical examination without abnormal findings (ICD-10 - Z00.00) Labs reviewed and discussed with patient 04/30/2024 Hypercholesteremia (ICD-10 - E78.00) 04/30/2024 Chronic systolic congestive heart failure (ICD-10 - I50.22) PLAN OF TREATMENT Medication Medication Name Sig Start Date Stop Date Notes Atorvastatin Calcium 20 MG 1 tablet Oral ly Once a day for 90 days 04/30/2024 Treatment Notes Assessment Notes Hyperparathyroidism referral to [facility] end ocrine/ REFERRAL MADE TO ENDOCRINE , WILL FAX AFTER CASE LOCKED Encounter for general adult medical examination without abnormal findings Labs reviewed and discussed with patient Future Test Test Name Order Date Liver Panel 07/29/2024 Blood Urea Nitrogen 07/29/2024 Creatinine 07/29/2024 Lipid Panel 07/29/2024 Referrals Referral Date Details HYPERPARATHYROIDISM TYPE 2 DIABETES WITHOUT COMPLICATION, Gerard De La Cruz Next Appt Details Follow Up: 3 Months, Reason: Provider Name:Lennox Reyes ier, 07/30/2024 07:00:00 AM, [address] [place] [address], Suite [facility], [place], [place], [phone], Provider Name:Lennox Reyes ier, 08/06/2024 03:00:00 PM, [address] [place] [address], Suite [facility], [place], [place], [phone], Provider Name:Lennox Reyes ier, 11/02/2024 07:15:00 AM, [address] [place] [address], [address], [phone], Provider Name:Lennox Reyes ier, 04/26/2025 07:00:00 AM, [address] [place] [address], [place] [address], [place], [place], [phone], Provider Name:Lennox Reyes ier, 05/03/2025 02:30:00 PM, [address] [place] [address], [place] [address], [place], [phone], Progress Notes * Examination Category Sub-Category Detail Notes General Examination GENERAL APPEARANCE: well dev eloped, well nourished, in no acute distress HEAD: normocephalic, atrau matic EYES: pupils equal, round, reactive to light and accommodation, sclera non- icteric EARS: normal THROAT: clear NECK/THYROID: neck supple, full ra nge of motion, no cervical lymphadenopathy, no bruits HEART: regular rate and rhy thm, S1, S2 normal, no murmurs LUNGS: clear to auscultatio n bilaterally ABDOMEN: soft, nontender, non distended, bowel sounds present, normal, no organomegaly , no masses palpable NEUROLOGIC: nonfocal, motor stre ngth normal upper and lower extremities, sensory exam intact SKIN: warm and dry, no tad picious lesions EXTREMITIES: no clubbing, cyanosi s, or edema MALE GENITOURINARY: uncircumcised , test es descended bilaterally , no testicular mass RECTAL EXAM: normal tone, no exte rnal hemorrhoids, no masses palpable, prostate normal, stool guaiac negative ORAL CAVITY: mucosa moist History and Physical Notes * HPI (History of Present Illness) Category Sub-Category Detail Notes Depression Screening PHQ-9 Little inte rest or pleasure in doing things: Not at all Feeling down, depressed, or hopeless: No t at all Trouble falling or staying asleep, or sl eeping too much: Not at all Feeling tired or having little energy: N ot at all Poor appetite or overeating: Not at all Feeling bad about yourself o r that you are a failure, or have let yourself or your family down: Not at all Trouble concentrating on thi ngs, such as reading the newspaper or watching television: Not at all Moving or speaking so slowly that other people could have noticed; or the opposite, being so fidgety or restless that you have been moving around a lot more than usual: Not at all Thoughts that you would be b gm off or of hurting yourself in some way: Not at all Total Score: 0 Interpretation and Intervention Depression Oneida frazier Findings: Negative Follow-Up for Depression: : review of PH Q-9 found negative result, no follow-up needed SDOH Questions SDOH Questions In the past year have you been worried about losing housing?: No In the past year have you or any family members you live with been unable to get any of the following when it was really needed? Check all that apply:: None Communication Needs Communication Needs Does the patient have a hearing impairment: No Does the patient have a vision impairmen t?: Yes ?If yes, what is the vision impairment?: Glasses Does the patient have a cognition impair ment?: No Consultation Request Notes Referral Date Referring Provider Referred Provider Not edmundo 04/30/2024 Lennox Tsang Raju HYPERPARATH YROIDISM TYPE 2 DIABETES WITHOUT COMPLICATION
--- OUTSIDE RECORDS SUMMARY | 2024-05-30 06:21 | XMS_ITS ---
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 Name Role Phone Lennox Tsang Primary Care Provider [phone] REASON FOR VISIT X-Ray Encounters Encounter Location Date Provider Diagnosis Lennox Tsang MD [address] [place] [address] [address] [place] [phone] 05/28/2024 Lennox Tsang PLAN OF TREATMENT Next Appt Details Provider Name:Lennox white, 07/30/2024 07:00:00 AM, [address] [place] [address], [address], [phone], Provider Name:Lennox white, 08/06/2024 03:00:00 PM, [address] [place] [address], [address], [phone], Provider Name:Lennox white, 11/02/2024 07:15:00 AM, [address] [place] [address], [address], [phone], Provider Name:Lennox white, 04/26/2025 07:00:00 AM, [address] [place] [address], [phone], Provider Name:Lennox white, 05/03/2025 02:30:00 PM, [address] [place], [place] [address], [phone],
--- OUTSIDE RECORDS SUMMARY | 2024-05-30 06:22 | XMS_ITS | Patient Health Record ---
Author Organization [facility] Address [address] [place] [address] Care Team Providers Care Yoke Setter Name Role Phone Sharan DIAZ, Lennox Primary Care Provider Gurjit Goodman Unavailable [phone] ALLERGIES No Known Allergies REASON FOR REFERRAL No Information MEDICATIONS Medication SIG (Take, Route, Frequency, Duration) Notes Start Date End Date Status Warfarin Sodium 5 MG Oral for 90 Active Allopurinol 300 MG Oral for 90 Active Torsemide 20 MG Oral for 90 Ac tive metOLazone 2.5 MG Oral for 84 Active Mag-Oxide 200 MG as directed Orally Active Metoprolol Succinate ER 50 MG Oral for 90 Active Spironolactone 25 MG Oral for 30 Active Potassium Chloride Eli ER 20 MEQ Oral for 30 Active IMMUNIZATIONS Vaccine Route Administration Date Status Comme nts Influenza Unknown 02/20/2022 Administered SOCIAL HISTORY Tobacco Use: Social History Observation Description Date Details (start date - stop date) Never Smoker NA - NA Sex Assigned At : Social History Observation Description Sex Assigned At Unknown Tobacco Use/Smoking Question Answer Notes Patient is a nonsmoker Alcohol Screen Question Answer Notes Did you have a drink containing alcohol in the p ast year? No Points 0 Interpretation Negative PROBLEMS Problem Type ICD Code Onset Dates Problem Status W/U Status Risk SNOMED Code Notes Problem Encounter for screening for malignant neoplasm of colon (Z12.11) Active confirmed 266513029 Problem Rectal bleeding (K62.5) Active confirmed 29917741 Problem Diverticulosis of large intestine without perforation or abscess without bleeding (K57.30) Active confirmed Diverticul ar disease of colon (113342724) PLAN OF TREATMENT Pending Test Test Name Order Date Pathology 11/24/2022 Future Test Test Name Order Date COLONOSCOPY 10/01/2022 Insurance Providers Payer Name Payer Address Payer Phone Subscriber Number Group Number Insured Name Patient Relationship to Insured Coverage Start Date Coverage End Date [facility] [address] [place] [phone] [id number] EMELY SARINA Self - patient is the insured MEDICAL (GENERAL) HISTORY Medical History History ICD Code Denies ID,DM,CVA,Lung disease,renal dise ase 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 Lal in [place] Sleep apnea-CPAP Arrhythmia with PVC's Gout He describes that he has bee n told at [facility] that he is a difficult intubation Surgical History Surgery Date(Month/Year) Heart surgery for IHSS--his heart surgery in 2001 involved replacement of the aortic valve with a [employer]'s valve 1984,1988,2001 Cervical spine fusion C1-C5 1988 Hernia repair--Bilateral inguinal and um bilical 2011,2013,2017, Tonsillectomy and adenoidectomy
--- OUTSIDE RECORDS SUMMARY | 2024-05-30 06:22 | XMS_ITS | Patient Health Record ---
Author Organization Lennox Tsang MD Address [address] [place], [place] [id number] Care Team Providers Care Index Editor Name Role Phone Lennox Tsang Primary Care Provider ALLERGIES Allergen (clinical drug ingredient) Drug/Non Drug Allergy documented on EMR Reaction Allergy Type Onset Date Status ibuprofen Ibuprofen bleeding Drug Allergy Active RESULTS Component Value Reference Range Notes Hemoglobin A1c Reviewed date:09/19/2023 03:39:56 PM Interpretation: Performing Lab: Notes/Report: Value Hemoglobin A1c 7.3 Hemoglobin A1c Reviewed date:01/02/2024 03:34:09 PM Interpretation: Performing Lab: Notes/Report: Value Hemoglobin A1c 6.2 Glucose, finger stick Reviewed date:09/19/2023 03:31:28 PM Interpretation: Performing Lab: Notes/Report: Value 107 Complete Blood Count Auto Di ff Reviewed date:09/20/2023 11:41:44 AM Interpretation: Performing Lab:[facility], [address] [place] [phone] Notes/Report: White Blood Count 11.4 4.8-10.8 X10*3/uL Red Blood Count 4.61 4.60-5.80 X10*6/uL Hemoglobin 13.4 14.0-18.0 g/dl Hematocrit 39.6 42.0-52.0 % Mean Corpuscular Volume 85.9 80.0-98.0 fL Mean Corpuscular Hemoglobin 29.1 27.0-33.0 pg Mean Corpuscular HGB Conc 33.8 31.0-36.0 g/dl Red Cell Distribution Width 14.3 11.0-16.0 % Platelet Count 263 160-400 X10*3/uL Mean Platelet Volume 10.6 9.4-12.4 fL Neutrophils Percent Auto 75.4 45-73 % Imm Gran Pct Auto 0.9 0.0-0.4 % Lymphocytes Percent Auto 11.8 20-40 % Monocytes Percent Auto 9.3 2-11 % Eosinophils Percent Auto 1.9 0-4 % Basophils Percent Auto 0.7 0-2 % NRBC Pct Auto 0.0 0.0-0.2 /100WBC Neutrophils Absolute Auto 8.6 2.0-8.3 x10*3/u L Imm Gran Abs Auto 0.10 0.00-0.03 X10*3/uL Lymphocytes Absolute Auto 1.4 1.2-4.9 X10*3/u L Monocytes Absolute Auto 1.1 0.1-1.2 X10*3/uL Eosinophils Absolute Auto 0.2 0.0-0.4 X10*3/u L Basophils Absolute Auto 0.1 0.0-0.2 X10*3/uL NRBC Abs Auto 0.000 0.0-0.012 X10*3/uL Comprehensive [place]. Panel Fa st Reviewed date:09/20/2023 02:36:59 PM Interpretation: Performing Lab:[facility], [address] [place] [phone] Notes/Report: Sodium 128 135-145 mmol/L Potassium 5.0 3.3-5.1 mmol/L Chloride 82 96-108 mmol/L Carbon Dioxide 34 22-29 mmol/L Anion Gap 17 12-20 Blood Urea Nitrogen 58 9-16 mg/dL Creatinine 1.76 0.5-1.4 mg/dL Estimated Glomerular Filt Rate 42 NOTE: For -[place]ue[place] individuals, multiply the result by 1.210. Chronic Kidney Disease: Estimated GFR < 60 mL/min/1.73m2 Severe Kidney Disease: Estimated GFR < 15 mL/min/1.73m2 Glucose Fasting 141 60-99 mg/dL A fasting glucose of 126 mg/dl or greater on more than one occasion is considered diagnostic of diabetes. Calcium 11.0 8.4-10.2 mg/dL Bilirubin Total 0.5 0.0-1.0 mg/dL Aspartate Amino Transferase 24 5-37 U/L Alanine Aminotransferase 26 0-40 U/L Total Protein 8.5 6.5-8.0 g/dL Albumin Level 4.7 3.5-5.0 g/dL Alkaline Phosphatase 75 39-117 U/L XR hip LT min 2V Reviewed date:09/22/2023 05:32:31 PM Interpretation: Performing Lab: Notes/Report: [address] [address] XRay Report Signed Patient: Armen Olson MR#: [id number] : 1975 Acct:[id number] Age/Sex: 48 / M ADM Date: 09/20/23 Loc: [facility] Attending Dr: Lennox Tsang MD Ordering Physician: Lennox Tsang MD Date of Service: 09/20/23 Procedure(s): XR hip LT min 2V Accession Number(s): [id number] cc: Lennox Tsang MD EXAMINATION: XR HIP, LEFT CLINICAL INFORMATION: Left hip pain COMPARISON: None available. TECHNIQUE: Two views of the left hip. FINDINGS: No fracture. Alignment is anatomic. Hip joint space is maintained. Soft tissues are unremarkable. XR/XR hip LT min 2V IMPRESSION: Normal left hip. No interval change Dictated By: Santiago Sheets MD Signed By: <Electronically signed by Santiago Sheets MD in OV> 09/22/23 1526 DD/ 0651 TD/TT: Management Advisor: Raudel Costa Reviewed date:09/20/2023 11:16:33 AM Interpretation: Performing Lab:[facility], [address] [place] [phone] Notes/Report: Raudel Costa See Note Specimen held untested for 24 hours; Call to request Chemistry testing. Urinalysis Reviewed date:10/02/2023 06:03:03 PM Interpretation: Performing Lab:[facility], [address] [place] [phone] Notes/Report: Color Urine Yellow Appearance Urine Clear PH 6.0 5.0-9.0 Glucose Urine UA Negative Negative mg/dL Urine Blood Negative Negative Specific [place] - Urine <= 1.005 1.005-1.025 Urine Protein Negative Neg-Trace mg/dL Urine Ketones Negative Negative mg/dL Nitrite Urine Negative Negative Leukocyte Esterase Urine Negative Negative Basic Metabolic Panel Reviewed date:11/03/2023 02:22:50 PM Interpretation:see back 11-03-23 Performing Lab:[facility], [address] [place] [phone] Notes/Report: Sodium 132 135-145 mmol/L Potassium 4.4 3.3-5.1 mmol/L Chloride 87 96-108 mmol/L Carbon Dioxide 30 22-29 mmol/L Anion Gap 19 12-20 Blood Urea Nitrogen 35 9-16 mg/dL Creatinine 1.72 0.5-1.4 mg/dL Estimated Glomerular Filt Rate 43 NOTE: For -Niuean individuals, multiply the result by 1.210. Chronic Kidney Disease: Estimated GFR < 60 mL/min/1.73m2 Severe Kidney Disease: Estimated GFR < 15 mL/min/1.73m2 Glucose Random 107 60-115 mg/dL Calcium 11.0 8.4-10.2 mg/dL Magnesium Reviewed date:10/02/2023 06:03:20 PM Interpretation: Performing Lab:[facility], [address] [place] [phone] Notes/Report: Magnesium 2.0 1.6-2.6 mg/dL Vitamin D 1,25 OH LC/MS/MS Reviewed date:10/08/2023 06:30:44 PM Interpretation: Performing Lab:[facility], [address] [place] [phone] Notes/Report: Vit D (1,25-Dihydroxy) Total 29 18-72 pg/mL VITAMIN D (1,25 OH) D3 <8 Vitamin D (1,25 OH) D2 29 Vitamin D3, 1,25(OH)2 indicates both endogenous production and supplementation. Vitamin D2, 1,25(OH)2 is an indicator of exogenous sources, such as diet or supplementation. Interpretation and therapy are based on measurement of Vitamin D,1,25(OH)2, Total. This test was developed and its analytical performance characteristics have been determined by [facility], [place], [place]. It has not been cleared or approved by the FDA. This assay has been validated pursuant to the CLIA regulations and is used for clinical purposes. THIS TEST WAS PERFORMED AT: [facility]/[address] [phone] MELVA GAONA MD,PHD PTH Intact Intraoperative Reviewed date:10/02/2023 06:03:35 PM Interpretation: Performing Lab:[facility], [address] [place] [phone] Notes/Report: PTH Intact Intraoperative 107.9 8.7-77.1 pg/mL Glucose, finger stick Reviewed date:01/02/2024 03:27:34 PM Interpretation: Performing Lab: Notes/Report: Value 105 INR WHOLE BLOOD POC Reviewed date:02/10/2024 02:23:34 PM Interpretation: Performing Lab:[facility], [address] [place] [phone] Notes/Report: PT, INR - [facility] 1.7 0.9-1.1 METER #: [id number] INTERNATIONAL NORMALIZED RATIO (INR) REFERENCE RANGES Reference Range For patients not on anticoagulant therapy: 0.9 - 1.1 INR ranges for oral anticoagulant therapy: For prevention and treatment of venous thrombosis and pulmonary embolism: 2.0 - 3.0 For acute myocardial infarction with aspirin therapy: 2.0 - 3.0 For acute myocardial infarction without aspirin therapy: 3.0 - 4.0 For patients with mechanical prosthetic heart valves: 2.5 - 3.5 Prothrombin Time Whole Bld P OC Reviewed date:02/10/2024 02:23:26 PM Interpretation: Performing Lab:[facility], [address] [place] [phone] Notes/Report: Prothrombin Time Whole Bld POC 20.0 11.1-13.5 sec INR WHOLE BLOOD POC Reviewed date:03/13/2024 11:32:09 AM Interpretation: Performing Lab:[address] [phone] Notes/Report: PT, INR - Anti Coag Clinic 2.0 0.9-1.1 METER #: [id number] Doctor Notified INTERNATIONAL NORMALIZED RATIO (INR) REFERENCE RANGES Reference Range For patients not on anticoagulant therapy: 0.9 - 1.1 INR ranges for oral anticoagulant therapy: For prevention and treatment of venous thrombosis and pulmonary embolism: 2.0 - 3.0 For acute myocardial infarction with aspirin therapy: 2.0 - 3.0 For acute myocardial infarction without aspirin therapy: 3.0 - 4.0 For patients with mechanical prosthetic heart valves: 2.5 - 3.5 Prothrombin Time Whole Bld P OC Reviewed date:03/13/2024 11:32:17 AM Interpretation: Performing Lab:[facility], [address] [place] [phone] Notes/Report: Prothrombin Time Whole Bld POC 24.5 11.1-13.5 sec Complete Blood Count Auto Di ff Reviewed date:04/23/2024 01:14:19 PM Interpretation: Performing Lab:[facility], [address] [place] [phone] Notes/Report: White Blood Count 11.3 4.8-10.8 X10*3/uL Red Blood Count 4.49 4.60-5.80 X10*6/uL Hemoglobin 13.1 14.0-18.0 g/dl Hematocrit 39.1 42.0-52.0 % Mean Corpuscular Volume 87.1 80.0-98.0 fL Mean Corpuscular Hemoglobin 29.2 27.0-33.0 pg Mean Corpuscular HGB Conc 33.5 31.0-36.0 g/dl Red Cell Distribution Width 13.7 11.0-16.0 % Platelet Count 280 160-400 X10*3/uL Mean Platelet Volume 10.8 9.4-12.4 fL Neutrophils Percent Auto 71.5 45-73 % Imm Gran Pct Auto 1.2 0.0-0.4 % Lymphocytes Percent Auto 14.4 20-40 % Monocytes Percent Auto 7.7 2-11 % Eosinophils Percent Auto 4.2 0-4 % Basophils Percent Auto 1.0 0-2 % NRBC Pct Auto 0.0 0.0-0.2 /100WBC Neutrophils Absolute Auto 8.1 2.0-8.3 x10*3/u L Imm Gran Abs Auto 0.14 0.00-0.03 X10*3/uL Lymphocytes Absolute Auto 1.6 1.2-4.9 X10*3/u L Monocytes Absolute Auto 0.9 0.1-1.2 X10*3/uL Eosinophils Absolute Auto 0.5 0.0-0.4 X10*3/u L Basophils Absolute Auto 0.1 0.0-0.2 X10*3/uL NRBC Abs Auto 0.000 0.0-0.012 X10*3/uL Comprehensive [place]. Panel Fa st Reviewed date:04/23/2024 01:20:25 PM Interpretation: Performing Lab:[facility], [address] [place] [phone] Notes/Report: Sodium 134 135-145 mmol/L Potassium 4.0 3.3-5.1 mmol/L Chloride 92 96-108 mmol/L Carbon Dioxide 31 22-29 mmol/L Anion Gap 15 12-20 Blood Urea Nitrogen 30 9-16 mg/dL Creatinine 1.61 0.5-1.4 mg/dL Estimated Glomerular Filt Rate 46 Chronic Kidney Disease: Estimated GFR < 60 mL/min/1.73m2 Severe Kidney Disease: Estimated GFR < 15 mL/min/1.73m2 Glucose Fasting 125 60-99 mg/dL A fasting glucose from 100-125 mg/dl is considered impaired (pre-diabetes). Calcium 10.5 8.4-10.2 mg/dL Bilirubin Total 0.3 0.0-1.0 mg/dL Aspartate Amino Transferase 32 5-37 U/L Alanine Aminotransferase 31 0-40 U/L Total Protein 7.9 6.5-8.0 g/dL Albumin Level 4.6 3.5-5.0 g/dL Alkaline Phosphatase 69 39-117 U/L Lipid Panel Reviewed date:04/23/2024 01:13:11 PM Interpretation: Performing Lab:[facility], [address] [place] [phone] Notes/Report: Triglycerides 192 <150 mg/dL Desirable Triglyceride: less than 150 mg/dL Borderline High Triglyceride 150-199 mg/dL High Triglyceride: 200-499 mg/dL Very High Triglyceride: greater than or equal to 5OO mg/dL Cholesterol 241 <200 mg/dL Desirable Cholesterol: less than 200 mg/dL Borderline High Cholesterol: 200-239 mg/dL High Cholesterol: greater than 239 mg/dL LDL Cholesterol Calculated 162 <100 mg/dL Desirable LDL: less than 100 mg/dL Near Optimal/Above Optimal LDL: 110-129 mg/dL Borderline High LDL: 130-159 mg/dL High LDL: 160-189 mg/dL Very High LDL: greater than or equal to 190 mg/dL HDL Cholesterol 41 >40 mg/dL Desirable HDL: greater than 40 mg/dL Note: This HDL assay may give artificially low results in patients with liver disease. PSA,Total (Free>4and<10) Reviewed date:04/23/2024 12:55:28 PM Interpretation: Performing Lab:[address] [phone] Notes/Report: PSA,Total (Free>4and<10) 0.38 0.00-4.00 ng/mL A Free PSA was not performed: The percentage of Free PSA can be used to enhance the differentiation of prostate cancer from benign prostatic disease in subjects whose PSA levels are between 4.0 and 10.0 ng/mL. For subjects whose PSA levels are below 4.0 or above 10.0 ng/mL, the risk of prostate cancer is determined on the basis of the PSA alone. Therefore the % Free PSA is recommended only for those subjects whose PSA levels are between 4.0 and 10.0 ng/mL. PSA methodology: Man Alinity i Chemiluminescent Microparticle Immunoassay (CMIA) Microalbumin, Random Reviewed date:04/23/2024 01:14:33 PM Interpretation: Performing Lab:[address] [phone] Notes/Report: Creatinine Urine 36.02 Microalbumin Urine 9.0 Microalbum/Creatinine Ratio Ur 24.9 <30 ug/mg cr Albumin/Creatinine Ratio Reference Ranges: Normal: < 30 ug/mg creatinine Microalbuminuria: 30 - 300 ug/mg creatinine Clinical Albuminuria: > 300 ug/mg creatinine UA ClnCatch+Micro w/rflx Cul t Reviewed date:04/23/2024 01:18:23 PM Interpretation: Performing Lab:[address] [phone] Notes/Report: Urine, Clean Catch Color Urine Yellow Appearance Urine Clear PH 6.0 5.0-9.0 Glucose Urine UA Negative Negative mg/dL Urine Blood Negative Negative Specific [place] - Urine 1.010 1.005-1.025 Urine Protein Negative Neg-Trace mg/dL Urine Ketones Negative Negative mg/dL Nitrite Urine Negative Negative Leukocyte Esterase Urine Negative Negative RBC Urine 0-2 0-2 /HPF WBC Urine 0-5 0-5 /HPF Squamous Epithelial Cell Urine 0-2 0-2 /HPF Bacteria Urine None Seen None Seen Hyaline Casts Urine 0-2 0-2 /LPF Parathyroid Hormone Intact Reviewed date:05/03/2024 08:10:24 AM Interpretation:ANGIE 04/30 Performing Lab:[facility], [address] [place] [phone] Notes/Report: Parathyroid Hormone Intact 142.2 8.7-77.1 pg/mL REASON FOR REFERRAL Reason TYPE 2 DIABETES Diagnosis 1 Type 2 diabetes jaylene itus without complication, without long-term current use of insulin (E11.9) Referral Organization Lennox Tsang MD Referring Provider First Name Lennox Referring Provider Last Name Sharan Referring Provider Speciality Internal edicine Referred Provider [facility] Referred Provider Specialty Endocrinolog y General Notes Stella Ventura 07/19/2023 12:13:29 PM EST > THE REFERRAL AND THE BS REFERRAL DOCUMENT HAVE BEEN FAXED TO BE Lorenzo BRADSHAW Patti A 09/01/2023 09:27:57 AM EDT > OFFICE NOTE RECIEVED Referral Priority Routine Referral Appointment Date 08/31/2023 Reason Hyperparathyroidism Diagnosis 1 Hyperparathyroidism (E21.3) Referral Organization Lennox Tsang MD Referring Provider First Name Lennox Referring Provider Last Name Sharan Referring Provider Speciality Internal edicine Referred Provider [facility] Referred Provider Specialty Endocrinolog y General Notes Lizz Watkins 08:31:53 AM EDT > [facility] referal faxed , Lizz Watkins 12/01/2023 02:45:44 PM EDT > spoke with patient regarding this referral he said he cancelled the appt 12-20-23 at 7:30am because is TSH levels are good. Asked him to send a copy of the labs results that Dr. Valenzuela did. Also a message was sent to provider regarding this issue. Referral marked consult pending. Referral Priority Routine Reason HYPERPARATHYROIDISM TYPE 2 DIABETES WITHOUT COMPLICATION Diagnosis 1 Type 2 diabetes jaylene itus without complication, without long-term current use of insulin (E11.9) Diagnosis 2 Hyperparathyroidism (E21.3) Referral Organization Lennox Tsang MD Referring Provider First Name Lennox Referring Provider Last Name Sharan Referring Provider Speciality Internal M edicine Referred Provider Gerard De La Cruz Referred Provider Specialty Endocrinolog y Referral Priority Routine MEDICATIONS Medication SIG (Take, Route, Frequency, Duration) Notes Start Date End Date Status Celecoxib 200 MG 1 capsule with food Orally Once a day for 90 days Not-Taking Atorvastatin Calcium 20 MG 1 tablet Oral ly Once a day for 90 days 04/30/2024 Active Metoprolol Succinate ER 50 MG 50mg Orally Once a day Activ e Torsemide 20 MG 2 tabs Q AM Orally Active Spironolactone 100 MG 1 tablet Orally BID Active Albuterol Sulfate HFA 108 (90 Base) MCG/ACT 1 puff as needed Inhalation every 4 hrs for 30 days 05/06/2020 Active Diprolene AF 0.05 % 1 application Externally Once a day for 90 days 04/14/2020 Active Docusate Sodium 100 MG 1 capsule as need ed Orally twice a day Active Colchicine 0.6 MG TAKE ONE TABLET TWO TIMES A DAY for 10 Not-Taking Warfarin Sodium 5 MG 2 tabs Orally Once a day for 90 days Active Allopurinol 300 MG TAKE ONE TABLET BY MOUTH ONCE DAILY Orally Once a day for 90 days Active metFORMIN HCl 500 MG 2tablet with a meal Orally twice Active IMMUNIZATIONS Vaccine Route Administration Date Status Comme nts Flu Vaccine Unknown 03/12/2014 Administered [facility] Fluarix Quadrivalent Unknown 03/09/2016 Administered [facility] at work PPSV23 (Pnemovax) IM Intramuscular 07/13/2016 Administered Fluarix Quadrivalent IM Intramuscular 01/31/2017 Administe red Fluarix Quadrivalent IM Intramuscular 02/10/2018 Administe red Fluarix Quadrivalent IM Intramuscular 02/13/2019 Administe red Fluarix Quadrivalent Unknown 02/27/2020 Administered [facility] PPSV23 (Pnemovax) Unknown 04/03/2020 Administered [facility] Fluarix Quadrivalent IM Intramuscular 02/23/2021 Administe red SARS-COV-2 Moderna Unknown 05/24/2020 Administered SARS-COV-2 Moderna Unknown 06/21/2020 Administered SARS-COV-2 Moderna Unknown 03/19/2021 Administered Fluarix Quadrivalent Unknown 03/11/2022 Administered At work Fluarix Quadrivalent - 150 IM Intramuscular 02/27/2024 Administered PPSV23 (Pnemovax) Unknown 06/03/2014 Refused Fluarix Quadrivalent Unknown 02/21/2015 Others SOCIAL HISTORY Tobacco Use: Social History Observation [...] W/U Status Risk SNOMED Code Notes Problem Rectal bleeding (K62.5) Active confirmed 13325302 Problem Gout (M10.9) Active confirmed Gout (905 85703) Problem Hypomagnesemia (E83.42) Active confirmed Hypomagnesemia (923350434) Problem Hypercalcemia (E83.52) Active confirmed Hypercalcemia (06879701) Problem Other ascites (R18.8) Active confirmed 505738707 Problem Aortic valve prosthesis present (Z95.2) Active confirmed 6541425654861 Problem Chronic systolic congestive heart failure (I50.22) Active confirmed 527217795 Problem Obstructive sleep apnea syndrome (G47.33) Active confirmed 35568943 Problem Hyperparathyroidism (E21.3) Active confirmed 21318996 Problem Intrinsic eczema (L20.84) Active confirmed 24959756 Problem Leukocytosis, unspecified type (D72.829) Active confirmed 716668056 Problem Arthralgia, unspecified joint (M25.50) Active confirmed 30456864 Problem Cardiac asthma (I50.1) Active confirmed 51941646 Problem Fatty liver (K76.0) Active confirmed 19 3394015 Problem Chronic systolic CHF (congestive heart failure) (I50.22) Active confirmed Chronic sy stolic heart failure (351060385) Problem Hypercholesteremia (E78.00) Active confirmed 93095199 Problem Type 2 diabetes mellitus without complication, without long-term current use of insulin (E11.9) Active confirmed 904879194 Problem Mild intermittent asthmatic bronchitis with acute exacerbation (J45.21) Active confirmed 551164166 Problem Acute drug-induced gout of foot, unspecified laterality (M10.279) Active confirmed 653465942204263 Problem Obesity (BMI 35.0-39.9 without comorbidity) (E66.9) Active confirmed 024190044 VITAL SIGNS Blood pressure diastolic 64 mm Hg 04/30/2024 tanya ght is up 18 pounds since 01-02-24 Height 64 in 05/29/2024 weight is 205 B P not taken today Blood pressure systolic 98 mm Hg 04/30/2024 weig ht is up 18 pounds since 01-02-24 Weight 211 lbs 04/30/2024 weight is up 18 pounds since 01-02-24 BMI 36.21 kg/m2 04/30/2024 weight is up 18 pounds since 01-02-24 Encounters Encounter Location Date Provider Diagnosis Lennox Tsang MD [address] [place] [address] [id number] 04/30/2024 Lennox Tsang Hyperparathyroidism E21.3 ; Encounter for general adult medical examination without abnormal findings Z00.00 ; Hypercholesteremia E78.00 and Chronic systolic congestive heart failure I50.22 Lennox Tsang MD [address] [place] [address] [address] [id number] 09/19/2023 Lennox Tsang Type 2 diabetes jaylene itus without complication, without long-term current use of insulin E11.9 ; Elevated BUN R79.9 ; Leukocytosis, unspecified type D72.829 and Hip pain, left M25.552 Lennox Tsang MD [address] [place] [id number] 11/03/2023 Lennox Tsang Hyperparathyroidism E21.3 and Hypercalcemia E83.52 Lennox Tsang MD [address] [place] [address] [address] [place] [id number] 04/16/2024 Lennox Tsang Annual physical exam Z00.00 ; Chronic systolic congestive heart failure I50.22 ; Hypercholesteremia E78.00 ; Hypomagnesemia E83.42 ; Type 2 diabetes mellitus without complication, without long-term current use of insulin E11.9 ; Leukocytosis, unspecified type D72.829 and Hyperparathyroidism E21.3 Lennox Tsang MD [address] [place] [id number] 02/27/2024 Lennox Tsang Encounter for immunization Z23 Lennox Tsang MD [address] [place] [id number] 07/18/2023 Lennox Tsang Hypercalcemia E83.52 ; Type 2 diabetes mellitus without complication, without long-term current use of insulin E11.9 and Chronic systolic CHF (congestive heart failure) I50.22 Lennox Tsang MD [address] [place] [id number] 01/02/2024 Lennox Tsang Obstructive sleep ap agnieszka syndrome G47.33 ; Chronic systolic congestive heart failure I50.22 and Type 2 diabetes mellitus without complication, without long-term current use of insulin E11.9 Lennox Tsang MD [address] [place] [id number] 10/14/2023 Lennox Tsang MD [address] [place] [id number] 12/01/2023 Lennox Tsang MD [address] [place] [id number] 05/29/2024 Lennox Tsang Fall on stairs, init ial encounter W10.9XXA and Closed fracture of one rib of left side, initial encounter S22.32XA Lennox Tsang MD [address] [place] [id number] 06/07/2023 Lennox Tsang MD [address] [place] [id number] 09/03/2023 Lennox Tsang MD [address] [place] [id number] 09/22/2023 Lennox Tsnag MD [address] [place] [id number] 11/08/2023 Lennox Tsang MD [address] [place] [id number] 12/12/2023 Lennox Tsang MD [address] [place] [id number] 02/23/2024 Lennox Tsang MD [address] [place] [id number] 02/23/2024 Lennox Tsang MD [address] [place] [address] [place] [id number] 05/28/2024 Lennox Tsang ASSESSMENTS Encounter Date Diagnosis Assessment Notes Treatment Notes Treatment Clinical Notes 04/30/2024 Encounter for genera l adult medical examination without abnormal findings (ICD-10 - Z00.00) Labs reviewed and discussed with patient 04/30/2024 Hyperparathyroidism (ICD-10 - E21.3) referral to [facility] endocrine/ REFERRAL MADE TO ENDOCRINE , WILL FAX AFTER CASE LOCKED 09/19/2023 Elevated BUN (ICD-10 - R79.9) will continue to monitor 09/19/2023 Type 2 diabetes jaylene itus without complication, without long-term current use of insulin (ICD-10 - E11.9) stable, will continue current regiment Labs to be done here in the office 09-20-23 11/03/2023 Hypercalcemia (ICD-1 0 - E83.52) seems that he most likely has primary hyper para. is going to go to endocrine 11/03/2023 Hyperparathyroidism (ICD-10 - E21.3) refer to endocrine/[facility] 04/16/2024 Annual physical exam (ICD-10 - Z00.00) 04/16/2024 Chronic systolic congestive heart failure (ICD-10 - I50.22) 02/27/2024 Encounter for immunization (ICD-10 - Z23) lot # [id number] exp 11-19-2024 07/18/2023 Hypercalcemia (ICD-1 0 - E83.52) 07/18/2023 Type 2 diabetes jaylene itus without complication, without long-term current use of insulin (ICD-10 - E11.9) referral to [facility] endocrine/ REFERRAL MADE AND WILL BE FAXED TO ENDOCRINE 01/02/2024 Chronic systolic congestive heart failure (ICD-10 - I50.22) doing well 01/02/2024 Obstructive sleep ap agnieszka syndrome (ICD-10 - G47.33) is being revaluated 05/29/2024 Closed fracture of o ne rib of left side, initial encounter (ICD-10 - S22.32XA) 05/29/2024 Fall on stairs, init ial encounter (ICD-10 - W10.9XXA) pending diagnostic testing, order faxed to [facility] [place] Patient Reg 04/30/2024 Hypercholesteremia (ICD-10 - E78.00) 09/19/2023 Leukocytosis, unspec ified type (ICD-10 - D72.829) 04/16/2024 Hypercholesteremia (ICD-10 - E78.00) 07/18/2023 Chronic systolic CHF (congestive heart failure) (ICD-10 - I50.22) doing great on meds./ ORDER MAILED TO MIN WITH 6 MO APPT 01/02/2024 Type 2 diabetes jaylene itus without complication, without long-term current use of insulin (ICD-10 - E11.9) will continue current regiment 04/30/2024 Chronic systolic congestive heart failure (ICD-10 - I50.22) 09/19/2023 Hip pain, left (ICD- 10 - M25.552) XRAY ORDER PRINTED AND GIVEN TO PATIENT, awaiting diagnostic tesing 04/16/2024 Hypomagnesemia (ICD- 10 - E83.42) 04/16/2024 Type 2 diabetes jaylene itus without complication, without long-term current use of insulin (ICD-10 - E11.9) 04/16/2024 Leukocytosis, unspec ified type (ICD-10 - D72.829) 04/16/2024 Hyperparathyroidism (ICD-10 - E21.3) 01/02/2024 Other doing great, will continue current regiment and will continue to monitor PLAN OF TREATMENT Pending Test Test Name Order Date Electrocardiogram (EKG) 10/20/2012 Electrocardiogram (EKG) 02/10/2018 XR CHEST 2 VIEW PA & LAT 05/25/2022 XR ribs LT min 3V w CXR1V 05/29/2024 Hemoglobin A1c 04/16/2024 Future Test Test Name Order Date Liver Panel 07/29/2024 Blood Urea Nitrogen 07/29/2024 Creatinine 07/29/2024 Lipid Panel 07/29/2024 Next Appt Details Provider Name:Lennox white, 07/30/2024 07:00:00 AM, [address] [place] [address], [address], [phone], Provider Name:Lennox white, 08/06/2024 03:00:00 PM, [address] [place] [address], [place] [address], [place], [place], [phone], Provider Name:Lennox Reyes ier, 11/02/2024 07:15:00 AM, [address], [address], [place], [place], [phone], Provider Name:Lennox Reyes ier, 04/26/2025 07:00:00 AM, [address], [address], [place], [place], [phone], Provider Name:Lennox Reyes ier, 05/03/2025 02:30:00 PM, [address], [address], [place], [place], [phone], Insurance Providers Payer Name Payer Address Payer Phone Subscriber Number Group Number Insured Name Patient Relationship to Insured Coverage Start Date Coverage End Date [address] [facility] [place] [phone] [id number] ; [id number] Armen Olson Self - patient is the insured MEDICAL (GENERAL) HISTORY Medical History History ICD Code Hx of Umbilical Hernia discussed colonoscopy and he wants to wait: 11/24/22 colonoscopy tubular adenoma. repeat in 5 years Prediabetes R73.09 Surgical History Surgery Date(Month/Year) aortic valve replacement 2002 cervical spine fusion
--- OUTSIDE RECORDS SUMMARY | 2024-05-30 06:22 | XMS_ITS | Patient Health Record ---
Author Organization [facility] Address [address] [place] [address] Care Team Providers Care Surveillance Sensor Operator Name Role Phone Lennox Tsang Primary Care Provider Unavailab le Allergies Allergen (clinical drug ingredient) Drug/Non Drug Allergy documented on EMR Reaction Allergy Type Onset Date Status ibuprofen Ibuprofen bleeding Drug Allergy Active Reason For Referral No Information Medications Medication SIG (Take, Route, Frequency, Duration) Notes Start Date End Date Status Klor-Con 10 10 MEQ 1 tablet with food Orally Twice a day Active Metoprolol Succinate ER 50 MG 1 tablet Orally Once a day Active Lasix 80 MG 1 tablet Orally Once a day 120MG AM and 80MG QHS Active Allopurinol 300 MG 1 tablet Orally Once a day Active ProAir HFA 108 (90Base) Not-Ta bandar Albuterol Sulfate HFA 108 (90 Base) MCG/ACT 1 puff as needed Inhalation every 4 hrs Active Ventolin HFA 108 (90 Base) MCG/ACT 1 puff as needed Inhalation every 4 hrs Not-Taking Bisoprolol Fumarate 2.5MG Not-Taking Celecoxib 200 MG 1 capsule with food Orally Once a day Active Warfarin Sodium 5 MG 1 tablet Orally Once a day Active Diprolene AF 0.05% cream once a day Active Colchicine 0.6 MG 1 tablet Orally Active Problems Problem Type SNOMED Code ICD Code Onset Dates Problem Status W/U Status Risk Notes Problem Atherosclerosis of artery (997744816) Arterial atherosclerosis (I70.8) Active confirmed Plan Of Treatment Pending Test Test Name Order Date EMIL 04/19/2022 Ultrasound : Artery Doppler Low Ext Bila t 04/19/2022 X ray : Foot, left 3v 04/19/2022 Insurance Providers Payer Name Payer Address Payer Phone Subscriber Number Group Number Insured Name Patient Relationship to Insured Coverage Start Date Coverage End Date [facility] [address] [place], [place] [phone] [id number] Armen Olson Self - patient is the insured Medical (General) History Medical History History ICD Code history of umbilical hernia prediabetes chronic systolic congestive heart failur e subaortic stenosis scoliosis bronchitis Gout neck fusion C1-C5 prosthetic valve COVID vaccinated X 2 (Moderna) and 1 connolly ster (Moderna) plantar fasciitis high cholesterol Surgical History Surgery Date(Month/Year) tympanostomy X 3 3 heart surgeries 5 cardiac catherization umbilical hernia repair left inguinal hernia repair right inguinal hernia repair cervical fusion tonsillectomy and adenoidectomy Hospitalization History Reason Date(Month/Year) PVC X 2 overdose on narcotics from tooth abscess 2014 uncontrolled bleeding in the mouth from root canal 2016 5 cardiac catherization 3 heart surgeries cervical fusion tonsillectomy and adenoidectomy
--- OUTSIDE RECORDS SUMMARY | 2024-05-30 06:22 | XMS_ITS ---
Author Organization [facility] Address [address] [place] [address] Care Team Providers Care Low Emission Automobile Designer Name Role Phone Lennox Tsang MD Primary Care Provider Gurjit Goodman Unavailable [phone] REASON FOR VISIT rectal bleeding Encounters Encounter Location Date Provider Diagnosis [facility] [address] [place] [address] 01/28/2023 Gurjit Alejandre PLAN OF TREATMENT No Information
== END 2024-05-30 06:19 | disposition home or self-care (01) ==
LOC: HO.LAB 06:18
PROVIDERS: PCP Internal Medicine; Visit Provider Internal Medicine
DX: S22.32XA Fracture of one rib, left side, initial encounter for closed fracture (principal); R91.8 Other nonspecific abnormal finding of lung field; W10.9XXA Fall (on) (from) unspecified stairs and steps, initial encounter
CPT/HCPCS: 71101

== ENCOUNTER → 2024-05-30 06:23 | Outpatient (BNV) | payer OTHER, SELFPAY | PROVIDERS: PCP Internal Medicine; Visit Provider Radiology Diagnostic Radiology | DX: J81.0 Acute pulmonary edema (principal); S22.32XA Fracture of one rib, left side, initial encounter for closed fracture | CPT/HCPCS: 71101 ==

== ENCOUNTER → 2024-07-17 14:15 | Outpatient (BNVA) | payer OTHER, SELFPAY | PROVIDERS: PCP Internal Medicine; Visit Provider Internal Medicine ==

== ENCOUNTER 2024-07-30 12:06 | Outpatient (REF) | payer OTHER, SELFPAY ==
[2024-07-30 12:58] LABS: Alanine Aminotransferase 32 U/L (0-40); Albumin Level 4.2 g/dL (3.5-5.0); Alkaline Phosphatase 91 U/L (39-117); Aspartate Amino Transferase 29 U/L (5-37); Bilirubin Direct 0.2 mg/dL (0.0-0.5); Bilirubin Total 0.7 mg/dL (0.0-1.0); Blood Urea Nitrogen 27 mg/dL (9-16); Cholesterol 171 mg/dL (<200); Estimated Glomerular Filt Rate > 60; HDL Cholesterol 49 mg/dL (>40); LDL Cholesterol Calculated 79 mg/dL (<100); Total Protein 7.8 g/dL (6.5-8.0); Triglycerides 217 mg/dL (<150)
--- OUTSIDE RECORDS SUMMARY | 2024-07-30 13:45 | XMS_ITS | Encounter Summary ---
Author Organization [facility] Address [address] [place] [address] Phone Care Team Providers Care Strategic Debriefing Specialist Name Role Phone Lennox Tsang MD Primary Care Provider [phone] Encounter Details Date Type Department Care Team (Late st Contact Info) Description 01/27/2024 Orders Only [facility] [address] [place] [address] Preet Valenzuela DO [address] [place] [address] Hypokalemia; Heart failure with normal ejection fraction (HCC); Hypercalcemia Social History Tobacco Use Types Packs/Day Years Used Date Smoking Tobacco: Never Assessed Sex and Gender Information Value Date Recorded Sex Assigned at Not on file Legal Sex Male 10:58 AM EDT Gender Identity Not on file Sexual Orientation Not on file documented as of this encounter Plan of Treatment Upcoming Encounters Date Type Department Care Team (Late st Contact Info) Description 10/05/2024 3:00 PM EDT Office Visit [facility] [address] [place] [address] Preet Valenzuela DO [address] [place] [address] documented as of this encounter Procedures Procedure Name Priority Date/Time Associated Diagnosis Comments MAGNESIUM Routine 03/21/2024 9:00 AM EDT Hypokalemia Heart failure with normal ejection fraction (HCC) Hypercalcemia RENAL FUNCTION PANEL Routine 03/21/2024 9:00 AM EDT Hypokalemia Heart failure with normal ejection fraction (HCC) Hypercalcemia documented in this encounter Results * Magnesium (03/21/2024 9:00 AM EDT) Magnesium 1.6 1.6 - 2.3 mg/dL [facility] Blood (Blood, Venous) 03/21/2024 9:00 AM EDT 03/21/2024 us Preet Valenzuela DO LAB BLOOD ORDERABLES Final Resu lt [facility] [address] [place] [address] * (ABNORMAL) Renal Function Panel (03/21/2024 9:00 AM EDT) Glucose 112(H) 70 - 99 mg/dL [facility] BUN 23 6 - 24 mg/dL [facility] Creatinine 1.23 0.76 - 1.27 mg/dL [facility] eGFR CKD-EPI CR 2020 72 >59 mL/min/1.7 3 [facility] BUN/Creatinine Ratio 19 9 - 20 [facility] Sodium 136 134 - 144 mmol/L [facility] Potassium 5.1 3.5 - 5.2 mmol/L [facility] Chloride 95(L) 96 - 106 mmol/L [facility] Bicarbonate (CO2) 21 20 - 29 mmol/L [facility] Calcium 9.7 8.7 - 10.2 mg/dL [facility] Phosphorus 2.3(L) 2.8 - 4.1 mg/dL [facility] Albumin 4.5 4.1 - 5.1 g/dL [facility] Blood (Blood, Venous) 03/21/2024 9:00 AM EDT 03/21/2024 us Preet Valenzuela DO LAB BLOOD ORDERABLES Final Resu lt [facility] [address] [place] [phone] documented in this encounter Visit Diagnoses Diagnosis Hypokalemia Heart failure with normal ejection fraction (HCC) Hypercalcemia documented in this encounter Care Teams Strategic Debriefing Specialist Relationship Specialty Start Date End Date Lennox Tsang MD [address] [place] [address] [address] [place], [place] PCP - General Internal Medicine 08/09/22 documented as of this encounter
--- OUTSIDE RECORDS SUMMARY | 2024-07-30 13:45 | XMS_ITS | Encounter Summary ---
Author Organization [facility] Address [address] [place] [address] Phone Care Team Providers Care Laborer Aquatic Life Name Role Phone Lennox Tsang MD Primary Care Provider Encounter Details Date Type Department Care Team (Late st Contact Info) Description 08/09/2022 Documentation Only [facility] [address] [place] [address] Lennox Tsang MD [address] [place] [address] [address] [place] [address] Social History Tobacco Use Types Packs/Day Years [...] Visit [facility] [address] [place] [address] Preet Valenzuela DO [address] [place] [address] documented as of this encounter Visit Diagnoses Not on filedocumented in this encounter Care Teams Laborer Aquatic Life Relationship Specialty Start Date End Date Lennox Tsang MD [address] [place] [address] [address] [place] [address] PCP - General Internal Medicine 08/09/22 documented as of this encounter
--- OUTSIDE RECORDS SUMMARY | 2024-07-30 13:45 | XMS_ITS | Encounter Summary ---
Author Organization [facility] [place], Address [address] [place] [address] Phone Care Team Providers Care Gasoline Catalyst Operator Name Role Phone Lennox Tsang MD Primary Care Provider [phone] Reason for Visit * Reason Onset Date Comments Med Refill 07/23/2024 Encounter Details Date Type Department Care Team (Late st Contact Info) Description 07/23/2024 Refill [facility] [place], [address] [place] [address] Preet Valenzuela DO [address] [place] [address] Hypokalemia; Heart failure with normal ejection fraction (HCC) Social History Tobacco Use Types Packs/Day Years [...] Visit [facility] [place], [address] [place] [address] Preet Valenzuela DO [address] [place] [address] documented as of this encounter Visit Diagnoses Diagnosis Hypokalemia Heart failure with normal ejection fraction (HCC) documented in this encounter Care Teams Gasoline Catalyst Operator Relationship Specialty Start Date End Date Lennox Tsang MD [address] [place], [place] PCP - General Internal Medicine 08/09/22 documented as of this encounter
--- OUTSIDE RECORDS SUMMARY | 2024-07-30 13:46 | XMS_ITS | Encounter Summary ---
Author Organization [facility] Address [address] [place] [address] Phone Care Team Providers Care Chief Bank Examiner Name Role Phone Lennox Tsang MD Primary Care Provider [phone] Encounter Details Date Type Department Care Team (Late st Contact Info) Description 09/21/2023 Documentation Only [facility] [address] [place] [address] Preet Valenzuela DO [address] [place] [address] Social History Tobacco Use Types Packs/Day Years [...] Visit [facility] [address] [place] [address] Preet Valenzuela DO [address] [place] [address] documented as of this encounter Visit Diagnoses Not on filedocumented in this encounter Care Teams Chief Bank Examiner Relationship Specialty Start Date End Date Lennox Tsang MD [address] [place], [place] PCP - General Internal Medicine 08/09/22 documented as of this encounter
--- OUTSIDE RECORDS SUMMARY | 2024-07-30 13:46 | XMS_ITS | Encounter Summary ---
Author Organization [facility] Address [address] [place] [address] Phone Care Team Providers Care Internet Webmaster Name Role Phone Lennox Tsang MD Primary Care Provider [phone] Encounter Details Date Type Department Care Team (Late st Contact Info) Description 09/01/2023 Documentation Only [facility] [address] [place] [address] Preet Valenzuela DO [address] [place] [address] Social History Tobacco Use Types [...] Visit [facility] [address] [address] Preet Valenzuela DO [address] [place] [address] documented as of this encounter Visit Diagnoses Not on filedocumented in this encounter Care Teams Internet Webmaster Relationship Specialty Start Date End Date Lennox Tsang MD [address] [place], [place] PCP - General Internal Medicine 08/09/22 documented as of this encounter
--- OUTSIDE RECORDS SUMMARY | 2024-07-30 13:46 | XMS_ITS ---
Author Organization Lennox Tsang MD Address [address] [place] [address] [address] [place] [phone] Care Team Providers Care Anesthesia Director Name Role Phone Lennox Tsang Primary Care Provider REASON FOR VISIT not able to reach by phone Encounters Encounter Location Date Provider Diagnosis Lennox Tsang MD [address] [place] [address] [address] [place] [phone] 07/23/2024 Lennox Tsang Plan Of Treatment Next Appt Details Provider Name:Lennox white, 08/06/2024 03:00:00 PM, [address] [place] [address], [address] [place] [address], [phone], Provider Name:Lennox white, 11/02/2024 07:15:00 AM, [address] [place] [address], [address] [place] [address], [phone], Provider Name:Lennox Reyes ier, 04/26/2025 07:00:00 AM, [address] [place] [address], [address], [phone], Provider Name:Lennox white, 05/03/2025 02:30:00 PM, [address] [place] [address], [address] [place] [address], [phone], Progress Notes * Steve HAN:1975 (49 yo M)Acc No.[id number]:07/23/2024 Patient:?Armen HAN :1975???Age:49 Y???Sex:Male Address:[address] [place] [address] * true * Date:? Generated for Gabriela velazquez/Sarah/eTransmitting on:?07/30/2024 01:45 PM EDT
--- OUTSIDE RECORDS SUMMARY | 2024-07-30 13:46 | XMS_ITS | Clinical Summary ---
Author Organization [facility], Address [address] [place] [address] Phone Care Team Providers Care Commodity Supervisor Name Role Phone Lennox Tsang MD Primary Care Provider Allergies No known active allergies Medications allopurinol (ZYLOPRIM) 300 MG tablet Take 300 mg by mouth 1 (one) time each day 3 Active amoxicillin (AMOXIL) 875 MG tablet 3 Active metOLazone 2.5 MG tablet 3 Active metoprolol succinate XL (TOPROL XL) 50 MG 24 hr tablet Take 50 mg by mouth 1 (one) time each day in the morning 3 Active torsemide (DEMADEX) 20 MG tablet Take 40 mg by mouth 1 (one) time each day 3 Active spironolactone (Aldactone) 100 MG tabletIndicatio ns:Hypokalemia, Heart failure with normal ejection fraction (HCC) Take 1 tablet (100 mg total) by mouth in the morning and 1 tablet (100 mg total) in the evening. 180 tablet 3 5 07/25/19 26 Active spironolactone (Aldactone) 100 MG tabletIndicatio ns:Hypokalemia, Heart failure with normal ejection fraction (HCC) Take 1 tablet (100 mg total) by mouth in the morning and 1 tablet (100 mg total) in the evening. 180 tablet 3 4 07/24/19 25 Discontinu ed(Reorder (does not appear on AVS)) Active Problems Problem Noted Date Diagnosed Date Heart failure with normal ejection fraction 12/21 Hypokalemia 10/28/2022 Encounters Date Type Department Care Team Description 07/23/2024 Refill [facility] [place], [address] [place] [address] Preet Valenzuela DO Hypokalemia; Heart failure with normal ejection fraction (HCC) 07/13/2024 Orders Only [facility] [address] [place] [address] Preet Valenzuela DO Hypokalemia; Heart failure with normal ejection fraction (HCC); Hypercalcemia from Last 3 Months Social History Tobacco Use Types Packs/Day Years Used Date Smoking Tobacco: Never Assessed Tobacco Cessation:Counseling Given: Not Answered Sex and Gender Information Value Date Recorded Sex Assigned at Not on file Legal Sex Male 10:58 AM EDT Gender Identity Not on file Sexual Orientation Not on file Last Filed Vital Signs Vital Sign Reading Time Taken Comments Blood Pressure 104/62 03/30/2024 3:35 PM EST Pulse 68 03/30/2024 3:35 PM EST Temperature - - Respiratory Rate - - Oxygen Saturation - - Inhaled Oxygen Concentration - - Weight 88.9 kg (196 lb) 11/10/2023 3:41 PM EDT Height - - Body Mass Index - - Plan of Treatment Upcoming Encounters Date Type Department Care Team (Late st Contact Info) Description 10/05/2024 3:00 PM EDT Office Visit [facility] [address] [place] [address] Preet Valenzuela DO [address] [place] [address] [place] [id number] Health Maintenance Due Date Last Done Comments Hepatitis B Vaccine (1 of 3 - 19+ 3-dose series) 01/29 Pneumococcal Vaccine: Pediat rics (0 to 5 Years) and At-Risk Patients (6 to 64 Years) (2 of 2 - PCV) 04/03/2021 04/03/2020 Influenza Vaccine (#1) 2024 Insurance [facility] Care Teams Commodity Supervisor Relationship Specialty Start Date End Date Lennox Tsang MD [address] [place] [address] [address] [place], [place] PCP - General Internal Medicine 08/09/22
--- OUTSIDE RECORDS SUMMARY | 2024-07-30 13:46 | XMS_ITS ---
Author Organization Lennox Tsang MD Address [address] [place], [place] [phone] Care Team Providers Care Audit Consultant Name Role Phone Lennox Tsang Primary Care Provider Results Component Value Reference Range Notes Liver Panel (Not yet reviewe d by provider) Interpretation: Performing Lab:[facility], [address] [place] [phone] Notes/Report: Bilirubin Total 0.7 0.0-1.0 mg/dL Bilirubin Direct 0.2 0.0-0.5 mg/dL Aspartate Amino Transferase 29 5-37 U/L Alanine Aminotransferase 32 0-40 U/L Total Protein 7.8 6.5-8.0 g/dL Albumin Level 4.2 3.5-5.0 g/dL Alkaline Phosphatase 91 39-117 U/L Blood Urea Nitrogen (Not yet reviewed by provider) Interpretation: Performing Lab:[facility], [address] [place] [phone] Notes/Report: Blood Urea Nitrogen 27 9-16 mg/dL Creatinine (Not yet reviewed by provider) Interpretation: Performing Lab:[facility], [address] [place] [phone] Notes/Report: Creatinine 1.25 0.5-1.4 mg/dL Estimated Glomerular Filt Rate > 60 Chronic Kidney Disease: Estimated GFR < 60 mL/min/1.73m2 Severe Kidney Disease: Estimated GFR < 15 mL/min/1.73m2 Lipid Panel (Not yet reviewe d by provider) Interpretation: Performing Lab:[facility], [address], [place] [address] Notes/Report: Triglycerides 217 <150 mg/dL Desirable Triglyceride: less than 150 mg/dL Borderline High Triglyceride 150-199 mg/dL High Triglyceride: 200-499 mg/dL Very High Triglyceride: greater than or equal to 5OO mg/dL Cholesterol 171 <200 mg/dL Desirable Cholesterol: less than 200 mg/dL Borderline High Cholesterol: 200-239 mg/dL High Cholesterol: greater than 239 mg/dL LDL Cholesterol Calculated 79 <100 mg/dL Desirable LDL: less than 100 mg/dL Near Optimal/Above Optimal LDL: 110-129 mg/dL Borderline High LDL: 130-159 mg/dL High LDL: 160-189 mg/dL Very High LDL: greater than or equal to 190 mg/dL HDL Cholesterol 49 >40 mg/dL Desirable HDL: greater than 40 mg/dL Note: This HDL assay may give artificially low results in patients with liver disease. REASON FOR VISIT LIVER, LIPID PANEL BUN CREATININE Encounters Encounter Location Date Provider Diagnosis Lennox Tsang MD [address] [place] [address] [place] [phone] 07/30/2024 Lennox Tsang Hyperparathyroidism E21.3 Assessments Encounter Date Diagnosis (ICD Code) Assessment Notes Treatment Notes Treatment Clinical Notes Section Notes 07/30/2024 Hyperparathyroidism (ICD-10 - E21.3) Plan Of Treatment Pending Test Test Name Order Date Liver Panel 07/30/2024 Blood Urea Nitrogen 07/30/2024 Creatinine 07/30/2024 Lipid Panel 07/30/2024 Next Appt Details Provider Name:Lennox white, 08/06/2024 03:00:00 PM, [address] [place] [address], [address], [phone], Provider Name:Lennox white, 11/02/2024 07:15:00 AM, [address] [place] [address], [address] [place] [address], [phone], Provider Name:Lennox white, 04/26/2025 07:00:00 AM, [address] [place] [address], [address], [phone], Provider Name:Lennox Reyes ier, 05/03/2025 02:30:00 PM, [address], [address], [place], [place], [phone], Progress Notes * Ian HANOB:1975 (49 yo M)Acc No.[id number]:07/30/2024 Progress Note Patient:?Armen HAN Provider:?Lennox Tsang MD :1975???Age:49 Y???Sex:Male Armando e:07/30/2024 Address:[address] [place], [place] [phone] Subjective: * Chief Complaints: * ???1. LIVER, LIPID PANEL BUN CREATININE. * Medical History:? Objective: * Vitals:? Assessment: * Assessment: 1.?Hyperparathyroidism - E21 .3??? Plan: * Treatment: * Procedure Codes:?74610 VENIP UNCT, ROUTINE* * * The named appointment provid er may or may not be the originator of this progress note, and it is not deemed complete until electronically signed by the appointment provider. Sign off status: Pending * Provider:?Lennox Tsang MD Date:?0 07/30/2024 Generated for Gabriela velazquez/Sarah/Mariaelenasmitting on:?07/30/2024 01:45 PM EDT
--- OUTSIDE RECORDS SUMMARY | 2024-07-30 13:46 | XMS_ITS | Encounter Summary ---
Author Organization [facility] Address [address] [place] [address] Phone Care Team Providers Care Marketing Reps Sports [employer] Entertainment Name Role Phone Lennox Tsang MD Primary Care Provider Encounter Details Date Type Department Care Team (Late st Contact Info) Description 07/13/2024 Orders Only [facility] [address] [place] [address] Preet Valenzuela DO [address] [place] [address] Hypokalemia; Heart failure with normal [...] Visit [facility] [address] [place] [place] [address] Preet Valenzuela DO [address] [place] [address] documented as of this encounter Visit Diagnoses Diagnosis Hypokalemia Heart failure with normal ejection fraction (HCC) Hypercalcemia documented in this encounter Care Teams Marketing Reps [employer] Relationship Specialty Start Date End Date Lennox Tsang MD [address] [place] [address] [address] [place] PCP - General Internal Medicine 08/09/22 documented as of this encounter
--- OUTSIDE RECORDS SUMMARY | 2024-07-30 13:46 | XMS_ITS ---
Author Organization Lennox Tsang MD Address [address] [place] [address] [place] [phone] Care Team Providers Care Signing Agent Name Role Phone Lennox Tsang Primary Care Provider REASON FOR VISIT RE: lab appt Encounters Encounter Location Date Provider Diagnosis Lennox Tsang MD [address] [place] [address] [place] [phone] 07/23/2024 Lennox Tsang Plan Of Treatment Next Appt Details Provider Name:Lennox white, 08/06/2024 03:00:00 PM, [address] [place] [address], [address] [place] [address], [phone], Provider Name:Lennox Reyes iefanta, 11/02/2024 07:15:00 AM, [address] [place] [address], [address], [phone], Provider Name:Lennox Reyes ier, 04/26/2025 07:00:00 AM, [address] [place] [address], [address], [phone], Provider Name:Lennox white, 05/03/2025 02:30:00 PM, [address] [place] [address], [address], [phone], Progress Notes * Steve HAN:1975 (49 yo M)Acc No.[id number]:07/23/2024 Patient:Armen BAKER :1975???Age:49 Y???Sex:Male Address:[address] [place] [id number] * true * Date:? Generated for Gabriela velazquez/Sarah/eTransmitting on:?07/30/2024 01:46 PM EDT
--- OUTSIDE RECORDS SUMMARY | 2024-07-30 13:46 | XMS_ITS | Patient Health Record ---
Author Organization [facility] Address [address] [place] [address] Care Team Providers Care Repair Servicer Name Role Phone Lennox Tsang Primary Care [...] Status Risk Notes Problem Atherosclerosis of artery (731587037) Arterial atherosclerosis (I70.8) Active confirmed Plan Of Treatment Pending Test Test Name Order Date EMIL 04/19/2022 Ultrasound : Artery Doppler Low Ext Bila t 04/19/2022 X ray : Foot, left 3v 04/19/2022 Insurance Providers Payer Name Payer Address Payer Phone Subscriber Number Group Number Insured Name Patient Relationship to Insured Coverage Start Date Coverage End Date [facility] [address] [place], [place] [phone] [id number] Armen Olson Self - patient is the [...]
--- OUTSIDE RECORDS SUMMARY | 2024-07-30 13:46 | XMS_ITS | Encounter Summary ---
Author Organization [facility] Address [address] [place] [address] Phone Care Team Providers Care First Crusher Name Role Phone Lennox Tsang MD Primary Care Provider Encounter Details Date Type Department Care Team (Late st Contact Info) Description 01/06/2023 Documentation Only [facility] [address] [place] [phone] Preet Valenzuela DO [address] [facility] [place] [phone] Social History Tobacco Use Types Packs/Day Years [...] Visit [facility] [address] [place] [phone] Preet Valenzuela DO [address] [facility] [address] [place] [phone] Scheduled Orders Name Type Priority Associated Diagnoses Orde r Schedule Calcium, urine, random Lab Routine Hypercalcemia Expected: 01/06/2023, Expires: 02/07/2024 documented as of this encounter Procedures Procedure Name Priority Date/Time Associated Diagnosis Comments CREATININE, URINE, RANDOM Routine 06/01/2023 10:08 AM EST Hypercalcemia PTH, INTACT Routine 06/01/2023 10:08 AM EST Hypercalcemia documented in this encounter Results * Urine Creatinine, random (06/01/2023 10:08 AM EST) Creatinine, Urine 165.1 MG/DL [facility] Comment: Testing performed or reported by [facility], a Service of [address] [address] Stephen Buckley MD, Head Cashier CLIA# [id number] Urine (Urine, Clean Catch) 06/01/2023 10:08 AM EST 06/01/2023 10:34 AM EST Preet Valenzuela LAB URINE ORDERABLES Final Resu lt Performing Organization Address [facility]/ZIP Co de Phone Number [facility] * (ABNORMAL) PTH, intact (06/01/2023 10:08 AM EST) PTH, Intact 124(H) (15-65) PG/ML [facility] Comment: Testing performed or reported by [facility] [employer], a Service of [address] [address] Stephen Buckley MD, Head Cashier IA# [id number] Blood (Blood, Venous) 06/01/2023 10:08 AM EST 06/01/2023 10:33 AM EST Preet Valenzuela LAB BLOOD ORDERABLES Final Resu lt [facility] documented in this encounter Visit Diagnoses Diagnosis Hypercalcemia- Primary documented in this encounter Care Teams First Crusher Relationship Specialty Start Date End Date Lennox Tsang MD [address] [place], [place] PCP - General Internal Medicine 08/09/22 documented as of this encounter
--- OUTSIDE RECORDS SUMMARY | 2024-07-30 13:46 | XMS_ITS | Encounter Summary ---
Author Organization [facility] Address [address] [place] [address] Phone Care Team Providers Care Cardroom Hand Name Role Phone Lnenox Tsang MD Primary Care Provider [phone] Encounter Details Date Type Department Care Team (Late st Contact Info) Description 09/21/2023 Documentation Only [facility] [address] [place] [address] Preet Valenzuela DO [address] [facility] [place] [address] Social History Tobacco Use Types [...] Visit [facility] [address] [place] [address] Preet Valenzuela DO [address] [facility] [place] [address] documented as of this encounter Visit Diagnoses Not on filedocumented in this encounter Care Teams Cardroom Hand Relationship Specialty Start Date End Date Lennox Tsang MD [address] [place], [place] PCP - General Internal Medicine 08/09/22 documented as of this encounter
--- OUTSIDE RECORDS SUMMARY | 2024-07-30 13:46 | XMS_ITS | Encounter Summary ---
Author Organization [facility] Address [address] [place] [address] Phone Care Team Providers Care Hand Tier Name Role Phone Lennox Tsang MD Primary Care Provider Reason for Visit * Reason Comments Med Refill Encounter Details Date Type Department Care Team (Late st Contact Info) Description 08/29/2023 Refill [facility] [address] [place] [address] Preet Valenzuela DO [address] [facility] [address] [place] [address] Hypokalemia; Heart failure with normal [...] Visit [facility] [address] [place] [address] Preet Valenzuela DO [address] [facility] [address] [place] [address] documented as of this encounter Visit Diagnoses Diagnosis Hypokalemia Heart failure with normal ejection fraction (HCC) documented in this encounter Care Teams Hand Tier Relationship Specialty Start Date End Date Lennox Tsang MD [address] [place], [place] PCP - General Internal Medicine 08/09/22 documented as of this encounter
--- OUTSIDE RECORDS SUMMARY | 2024-07-30 13:46 | XMS_ITS | Clinical Summary ---
Author Organization [facility] Address [address] [place] [address] Care Team Providers Care Project Technician Name Role Phone Lennox Tsang MD Primary Care Provider [phone] Allergies No known active allergies Medications metoprolol succinate (TOPROL-XL) 50 mg 24 hr tablet Take 1 Tablet by mouth daily. 1 tab in the morning Active torsemide (DEMADEX) 20 mg tablet Take 2 Tablets by mouth daily. Active enoxaparin (LOVENOX) 80 mg/0.8 mL syringe Inject 80 mg as directed 2 times daily. Active spironolactone (ALDACTONE) 100 mg tablet Take 1 Tablet by mouth 2 times daily. Active metFORMIN (GLUCOPHAGE) 1,000 mg tablet Take 1 Tablet by mouth 2 times daily (with meals). Active allopurinoL (ZYLOPRIM) 300 mg tablet Take 300 mg by mouth daily. Active AMOXICILLIN ORAL Take 500 mg by mouth as needed. Prior to denatl procedures Active warfarin sodium (WARFARIN ORAL) Take 10 mg by mouth twice a week. Taking 7.5mg M, W, Th, Sat, Sun. [facility]mad[facility] [place] [facility] managing INR Active atorvastatin (LIPITOR) 20 mg tablet Take 1 tablet (20 mg total) by mouth at bedtime. Active metOLazone (ZAROXOLYN) 2.5 mg tablet TAKE 1 TABLET BY MOUTH THREE TIMES A WEEK. 36 tablet 2 07/13/19 25 Active metOLazone (ZAROXOLYN) 2.5 mg tablet Take 1 Tablet by mouth once a week. 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 Continue on anticoagulation with Coumadin close INR monitoring. The patient has been educated on his need for endocarditis prophylaxis. Tachycardia 05/18/2023 Electrolyte abnormality 05/18/2023 Chronic heart failure with p reserved ejection fraction (HFpEF) 05/17/2023 Assessment & Plan (06/01/2024 9:36 AM EST): Patient with history of chronic HFpEF requiring multiple diuretics. As outlined above he recently had a chest x-ray suggesting pulmonary edema. This morning he took his metolazone and an extra dose of torsemide equaling 60 mg. His weight overall is increased since the summer but stable at this time, yesterday he states he was 215 at his doctor's office and today he is 212. He reports mild increase in his dyspnea on exertion, but is unsure if this is related to his rib fracture and discomfort with breathing. He denies cough or peripheral edema. He is euvolemic on exam with no JVD or lower extremity edema noted. He does have abdominal distention at baseline which she states is unchanged. Discussed case with Dr. Lal, patient to continue on his regular diuretic dosing and utilize metolazone as needed. He will continue with close weight and symptom monitoring and notify the office with changes. Patient has upcoming echocardiogram scheduled. CHF exacerbation 06/22/2022 Palpitations 06/22/2022 Diastolic heart failure 01/02/2021 Subaortic stenosis 06/02/2020 PVC (premature ventricular contraction) 06/02/19 21 Encounters Date Type Department Care Team Description 06/18/2024 Telephone [facility] Cardiology [facility] [address] [facility] [address] [place] [phone] Hilda Mcgregor NP echocardiogram 06/01/2024 8:10 AM EST Office Visit [facility] [address] [facility] [address] [place] [phone] Hilda Mcgregor NP Shortness of breath (Primary Dx); Chronic heart failure with preserved ejection fraction (HFpEF) (CMS/HCC); H/O aortic valve replacement from Last 3 Months Immunizations Name Administration Dates Next Due Moderna SARS-CoV-2 COVID-19, mRNA, LNP-S, preservative free 03/19/2021 Surgical History Surgery Date Site/Laterality Comments AORTIC VALVE REPLACEMENT PROCEDURE: HISTORICAL AORTIC VALVE REPL OTHER SURGICAL HISTORY PROCEDURE: HISTORY OTHER; COMMENT: Subaortic membrane resection x3 OTHER SURGICAL HISTORY PROCEDURE: SPINAL FUSION, EA ADD'L INTERSPACE; COMMENT: Neck fusion OTHER SURGICAL HISTORY PROCEDURE: HISTORY OTHER; COMMENT: Hernia repair x3 Medical History Medical History Date Comments Scoliosis DX:Scoliosis Obesity 06/22/2022 DX:Obesity Gout DX:Gout SINA (obstructive sleep apnea) DX :SINA (obstructive sleep apnea) Osteoarthritis DX:Osteoarthriti s Diuretic-induced hypokalemia DX: Diuretic-induced hypokalemia Hypokalemia DX:Hypokalemia Electrolyte abnormality DX:Elect rolyte abnormality Social History Tobacco Use Types Packs/Day Years Used Date Smoking Tobacco: Never Smokeless Tobacco: Never Alcohol Use Standard Drinks/Week Comments No 0 (1 standard drink = 0.6 oz pur e alcohol) Sex and Gender Information Value Date Recorded Sex Assigned at Not on file Legal Sex Male 11:04 PM EDT Gender Identity Not on file Sexual Orientation Not on file Obstetrics History Last Filed Vital Signs Vital Sign Reading Time Taken Comments Blood Pressure 112/74 06/01/2024 8:10 AM EST Pulse 87 06/01/2024 8:10 AM EST Temperature - - Respiratory Rate - - Oxygen Saturation 97% 06/01/2024 8:10 AM EST Inhaled Oxygen Concentration - - Weight 96.2 kg (212 lb) 06/01/2024 8:10 AM EST Height 162.6 cm (5' 4 ) 06/01/2024 8:10 AM EST Body Mass Index 36.39 06/01/2024 8:10 AM EST Plan of Treatment Upcoming Encounters Date Type Department Care Team (Late st Contact Info) Description 09/11/2024 9:20 AM EDT Office Visit [facility] [address] [place] [address] Zac Lal MD [address] [place] [address] [address] [place] [address] Health Maintenance Due Date Last Done Comments DTaP,Tdap,and Td Vaccines (1 - Tdap) 01/29/1995 Hepatitis B Vaccines (1 of 3 - 19+ 3-dose series) 01/29/1995 Cholesterol Screening (Lipid Panel) 01/22/2021 Colorectal Cancer Screening: Colonoscopy 01/22/2021 Depression Screening 01/22/2021 HIV Screening 01/22/2021 Hepatitis C Screening 01/22/2021 Social Influencers of Health Screening 01/22/2021 Pneumococcal Vaccine: Pediatrics (0 to 5 Years) and At-Risk Patients (6 to 64 Years) (2 of 2 - PCV) 04/03/2021 04/03/2020, 07/13/2016 Hypertension/CHF/CAD Annual BMP Blood Test 06/21/2023 Influenza Vaccine Completed 02/27/2024, , 03/11/2022, Additional history exists COVID-19 Vaccine Completed 03/14/2024, , 06/21/2020, Additional history exists HIB Vaccines Aged Out No longer eligi ble based on patient's age to complete this topic HPV Vaccines Aged Out No longer eligi ble based on patient's age to complete this topic Hepatitis A Vaccines Aged Out No long er eligible based on patient's age to complete this topic IPV Vaccines Aged Out No longer eligi ble based on patient's age to complete this topic MMR Vaccines Aged Out No longer eligi ble based on patient's age to complete this topic Meningococcal ACWY Vaccine Aged Out N o longer eligible based on patient's age to complete this topic Meningococcal B Vacine Aged Out No lo nger eligible based on patient's age to complete this topic RSV Immunization Patients Under 20 months Aged Out No longer eligible based on patient's age to complete this topic Varicella Vaccines Aged Out No longer eligible based on patient's age to complete this topic Procedures Procedure Name Priority Date/Time Associated Diagnosis Comments ECG 12-LEAD Routine 06/01/2024 9:35 AM EST Shortness of breath from Last 3 Months Results * ECG 12 lead (06/01/2024 9:35 AM EST) Ventricular Rate ECG 87 BPM GEMUSE Atrial Rate 87 BPM GEMUSE P-R Interval 104 ms GEMUSE QRS Duration 138 ms GEMUSE Q-T Interval 408 ms GEMUSE QTc 490 ms GEMUSE P Wave [place] 31 degrees GEMUSE R [place] 42 degrees GEMUSE T [place] -148 degrees GEMUSE ECG Interpretation Sinus rhythm with short ND Left bundle branch block Abnormal ECG No previous ECGs available Confirmed by Beba LAL JAMES ([id number]) on 06/01/2024 1:19:38 PM GEMUSE 06/01/2024 8:17 AM EST 06/01/2024 1:19 PM EST us Hilda Mcgregor NP ECG ORDERABLES Edited Result - Final GEMUSE from Last 3 Months Insurance [facility] Care Teams Project Technician Relationship Specialty Start Date End Date Lennox Tsang MD PCP - General Internal Medicine 04/09/20
--- OUTSIDE RECORDS SUMMARY | 2024-07-30 13:46 | XMS_ITS | Encounter Summary ---
Author Organization [facility] Address [address] [place] [address] Phone Care Team Providers Care Breeder Service Technician Name Role Phone Lennox Tsang MD Primary Care Provider Encounter Details Date Type Department Care Team (Late st Contact Info) Description 04/20/2024 Orders Only [facility] [address] [place] [address] Preet Valenzuela DO [address] [facility] [place] [address] Hypokalemia; Heart failure with normal [...] Visit [facility] [address] [place] [address] Preet Valenzuela DO [address] [facility] [place] [address] documented as of this encounter Visit Diagnoses Diagnosis Hypokalemia Heart failure with normal ejection fraction (HCC) Hypercalcemia documented in this encounter Care Teams Breeder Service Technician Relationship Specialty Start Date End Date Lennox Tsang MD [address] [place] [address] [address] [place] PCP - General Internal Medicine 08/09/22 documented as of this encounter
--- OUTSIDE RECORDS SUMMARY | 2024-07-30 13:47 | XMS_ITS | Patient Health Record ---
Author Organization [facility] Address [address] [place] [address] Care Team Providers Care Terminal Operations Manager Name Role Phone Sharan DIAZ, Lennox Primary Care Provider Gurjit Goodman Unavailable [phone] Allergies No Known Allergies Reason For Referral No Information Medications Medication [...] ER 20 MEQ Oral for 30 Active Immunizations Vaccine Route Administration Date Status Comme nts Influenza Unknown 02/20/2022 Administered Social History Tobacco Use: Social History Observation Description Date Details (start date - stop date) Never Smoker NA - NA Tobacco Use/Smoking Question Answer Notes Patient is a nonsmoker Alcohol Screen Question Answer Notes Did you have a drink containing alcohol in the p ast year? No Points 0 Interpretation Negative Section Notes: Nonsmoker; no sig alcohol Problems Problem Type SNOMED Code ICD Code Onset Dates Problem Status W/U Status Risk Notes Problem 32419689 Rectal bleeding (K62.5) Active confirmed Problem 251017771 Encounter for screening for malignant neoplasm of colon (Z12.11) Active confirmed Problem Diverticular disease of colon (603253673) Diverticulosis of large intestine without perforation or abscess without bleeding (K57.30) Active confirmed Plan Of Treatment Pending Test Test Name Order Date Pathology 11/24/2022 Future Test Test Name Order Date COLONOSCOPY 10/01/2022 Insurance Providers Payer Name Payer Address Payer Phone Subscriber Number Group Number Insured Name Patient Relationship to Insured Coverage Start Date Coverage End Date [facility] [address] [place] [phone] [id number] SARINA HAN Self - patient is the insured Medical (General) History Medical History History ICD Code Denies UT,DM,CVA,Lung disease,renal dise ase 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 Lal in [place] Sleep apnea-CPAP Arrhythmia with PVC's Gout He describes that he has bee n told at [facility] that he is a difficult intubation Surgical History Surgery Date(Month/Year) Heart surgery for IHSS--his heart surgery in 2001 involved replacement of the aortic valve with a [facility] valve 1984,1988,2001 Cervical spine fusion C1-C5 1988 Hernia repair--Bilateral inguinal and um bilical 2011,2013,2017, Tonsillectomy and adenoidectomy
== END 2024-07-30 12:07 | disposition home or self-care (01) ==
LOC: HO.LNP 12:06
PROVIDERS: Visit Provider Internal Medicine
DX: E21.3 Hyperparathyroidism, unspecified (principal); Z13.6 Encounter for screening for cardiovascular disorders
CPT/HCPCS: 80061; 80076; 82565; 84520

== ENCOUNTER → 2024-08-09 09:29 | Outpatient (BNVA) | payer OTHER, SELFPAY | PROVIDERS: PCP Internal Medicine; Visit Provider Internal Medicine Medical Oncology ==

== ENCOUNTER → 2024-08-13 11:00 | Outpatient (BNVA) | payer OTHER, SELFPAY | PROVIDERS: PCP Internal Medicine; Visit Provider Internal Medicine Medical Oncology ==

== ENCOUNTER 2024-08-16 10:12 | Outpatient (AMB) | payer OTHER, SELFPAY ==
[2024-08-16 10:37] LABS: Prothrombin Time Whole Bld POC 48.1 sec (11.1-13.5)
--- NOTE | 2024-08-16 10:39 | MHC.OFFVISCO ---
Intake Intake Visit Reasons: Anticoagulation Allergies No Known Allergies Allergy (Verified 08/16/24 10:14) Medication List - Last Reconciled 08/16/24 by Mishel Logan RN albuterol sulfate 90 mcg/actuation 0 mcg inhalation allopurinol 300 mg PO DAILY atorvastatin 20 mg PO QPM colchicine 0.6 mg PO BID PRN metformin ER 1,000 mg PO BID metoprolol succinate ER 50 mg PO DAILY spironolactone 100 mg PO BID torsemide 40 mg PO DAILY warfarin 5 mg See Protocol PO DAILY Nursing Note meter to meter today due to increase use of strips and lancets and unable to order until08/26/24 reviewed technique - pt able to return proficient demonstration. he came at diff time ACS had scheduled. Will complete risk scores at scheduled meter to meter appt INR 4.0?? out of therapeutic range Medications and supplements reviewed Patient status: appears to have asif gain - possible r/t fluid - he is s/p skin bx that is negative- INR was low post procedure Medications or supplements: no changes, take vit d 3 Diet: good - has avoided greens due to previous low INR Denies any signs and symptoms of bleeding or clotting or unusual bruising Bleeding, bruising, clotting discussed Nutritional guidance given: resume weekly greens Dose: decrease to 5mg today then resume 7.5mg x 3 days/ 10mg x 4 days F/U INR Date : 08/21/24 then if stable retest 2 weeks ?? Patient verbalizing understanding of instructions given. Anti-Coag Initial Assessment Social Hx Patient Tobacco Use Status: Never used Tobacco Coding Level of Care Code Est Patient Level 1 Diagnoses Current use of anticoagulant therapy Z79.01 Results AMB INR Fingerstick AMB INR Fingerstick 4.0 Last Edit by Mishel Logan RN on 08/16/24 10:32 MANUAL ENTRY Assessment & Plan Assessment & Plan (1) Current use of anticoagulant therapy: Code(s): Z79.01 - snf (current) use of anticoagulants Category: Medical Medications: New [VITAMIN D 3] PO
--- OUTSIDE RECORDS SUMMARY | 2024-08-16 13:09 | XMS_ITS | Encounter Summary ---
Author Organization [facility], Address [address] [place] [address] Phone Care Team Providers Care Business Systems Advisor Name Role Phone Lennox Tsang MD Primary Care Provider Reason for Visit * Reason Onset Date Comments Med Refill 07/23/2024 Encounter Details Date Type Department Care Team (Late st Contact Info) Description 07/23/2024 Refill [facility], [address] [place] [address] Preet Valenzuela DO [address] [place] [address] Hypokalemia; Heart failure with normal [...] Visit [facility] [address] [place] [address] Preet Valenzuela DO [address] [place] [address] documented as of this encounter Visit Diagnoses Diagnosis Hypokalemia Heart failure with normal ejection fraction (HCC) documented in this encounter Care Teams Business Systems Advisor Relationship Specialty Start Date End Date Lennox Tsang MD [address] [place], [place] PCP - General Internal Medicine 08/09/22 documented as of this encounter
--- OUTSIDE RECORDS SUMMARY | 2024-08-16 13:10 | XMS_ITS | Patient Health Record ---
Author Organization [facility] Address [address] [place] [address] Care Team Providers Care Truckman Name Role Phone Lennox Tsang Primary Care [...] Status Risk Notes Problem Atherosclerosis of artery (498154320) Arterial atherosclerosis (I70.8) Active confirmed Plan Of Treatment Pending Test Test Name Order Date EMIL 04/19/2022 Ultrasound : Artery Doppler Low Ext Bila t 04/19/2022 X ray : Foot, left 3v 04/19/2022 Insurance Providers Payer Name Payer Address Payer Phone Subscriber Number Group Number Insured Name Patient Relationship to Insured Coverage Start Date Coverage End Date [facility] [address] [place], [place] [phone] [phone] [id number] Armen Olson Self - patient is the [...]
--- OUTSIDE RECORDS SUMMARY | 2024-08-16 13:10 | XMS_ITS | Encounter Summary ---
Author Organization [facility] Address [address] [place] [address] Phone Care Team Providers Care Senior Technical Analyst Name Role Phone Lennox Tsang MD Primary Care Provider Encounter Details Date Type Department Care Team (Late st Contact Info) Description 04/20/2024 Orders Only [facility] [address] [place] [address] Preet Valenzuela DO [address] [place] [address] Hypokalemia; Heart failure with normal [...] Visit [facility] [address] [place] [address] Preet Valenzuela DO [address] [place] [address] documented as of this encounter Visit Diagnoses Diagnosis Hypokalemia Heart failure with normal ejection fraction (HCC) Hypercalcemia documented in this encounter Care Teams Senior Technical Analyst Relationship Specialty Start Date End Date Lennox Tsang MD [address] [place] [address] [address] [place] PCP - General Internal Medicine 08/09/22 documented as of this encounter
--- OUTSIDE RECORDS SUMMARY | 2024-08-16 13:10 | XMS_ITS ---
Author Organization Lennox Tsang MD Address [address] [place], [place] [phone] Care Team Providers Care Marshmallow Maker Name Role Phone Lennox Tsang Primary Care Provider [phone] Allergies Allergen (clinical drug ingredient) Drug/Non Drug [...] Location Date Provider Diagnosis Lennox Tsang MD [address] [place] [address] [place] [phone] 08/06/2024 Lennox Tsang Chronic systolic congestive heart [...] Up: 6 Months, Reason: Provider Name:Lennox white, 11/02/2024 07:15:00 AM, [address] [place] [address], Suite [facility], [place], [place], [phone], Provider Name:Lennox white, 02/07/2025 02:00:00 PM, [address] [place] [address], [address], [phone], Provider Name:Lennox white, 04/26/2025 07:00:00 AM, [address] [place] [address], [place] [address], [place], [place], [phone], Provider Name:Lennox white, 05/03/2025 02:30:00 PM, [address] [facility], [place], [place], [phone], Progress Notes * Ian HANOB:1975 (49 yo M)Acc No.[id number]:08/06/2024 Progress Notes Patient:?Armen HAN Provider:?Lennox Tsang MD :1975???Age:49 Y???Sex:Male Armando e:08/06/2024 Address:[address] [place], [place] [phone] Subjective: * Chief Complaints: * ???3 MO F/U * HPI: ???Symptom(s):?patient is a 49 yo male here for 3 month follow up visit/ had biopsy of shoulder. is going back on coumadin had to stop coumadin . says he can't take lovenox. he will take his chances. feeling well. * ROS:?General/Constitutional:?Denies?Chills.?Denies?Fatigue.?Denies?Fever.?Denies?Headache.?ENT:?Denies?Sore throat.?Respiratory:?Denies?Cough.?Denies?Shortness of breath at rest.?Denies?Shortness of breath with exertion.?Gastrointestinal:?Denies?Diarrhea.?Denies?Nausea.? * Medical History:? * Surgical History:? * Hospitalization/Major Diagno stic Procedure:? * Medications:?TakingDocusate Sodium 100 MG Capsule 1 capsule as [...] reviewed and reconciled with the patient * Allergies:?Ibuprofen: elizabeth aivla[Allergies Verified] Objective: * Vitals:?Ht: 64, Wt: 218, BMI :37.42, BP:102/70, Wt-k.88. weight is up 3 pounds since 05-31-24. * ???Past Orders: ???Lab:Liver Panel (Order Da te - 07/30/2024) (Collection Date & Time - 07/30/2024 07:00 AM) ? Value Reference Range ?Bilirubin Total 0.7 0.0- 1.0 - mg/dL ?Bilirubin Direct 0.2 0.0 -0.5 - mg/dL ?Aspartate Amino Transferase 29 5-37 - U/L ?Alanine Aminotransferase 32 0-40 - U/L ?Total Protein 7.8 6.5-8. 0 - g/dL ?Albumin Level 4.2 3.5-5. 0 - g/dL ?Alkaline Phosphatase 91 39-117 - U/L ???Lab:Blood Urea Nitrogen ( Order Date - 07/30/2024) (Collection Date & Time - 07/30/2024 07:00 AM) ? Value Reference Range ?Blood Urea Nitrogen 27 H 9-16 - mg/dL ???Lab:Creatinine (Order Armando e - 07/30/2024) (Collection Date & Time - 07/30/2024 07:00 AM) ? Value Reference Range ?Creatinine 1.25 0.5-1.4 - mg/dL ?Estimated Glomerular Filt Rate > 60 - ???Lab:Lipid Panel (Order Da te - 07/30/2024) (Collection Date & Time - 07/30/2024 07:00 AM) ? Value Reference Range ?Triglycerides 217 H <150 - mg/dL ?Cholesterol 171 <200 - m g/dL ?LDL Cholesterol Calculated 79 <100 - mg/dL ?HDL Cholesterol 49 >40 - mg/dL * Examination: ???General Examination: ?GENERAL APPEARANCE:?alert, well hydrated, in no distress.?HEAD:?normocephalic.?SKIN:?good turgor.?HEART:?no murmurs, rubs, gallops, regular rate and rhythm.?LUNGS:?no wheezes, rales, rhonchi, good air movement, clear to auscultation bilaterally.? Assessment: * Assessment: 1.?Chronic systolic congesti ve heart failure - I50.22 (Primary)???2.?Obstructive sleep apnea syndrome - G47.33???3.?Aortic valve prosthesis present - Z95.2???4.?Hypercholesteremia - E78.00??? Plan: * Treatment: 2.?Obstructive sleep apnea s yndrome? Notes: using cpap?? 3.?Aortic valve prosthesis p resent? Notes: has been doing well?? 4.?Hypercholesteremia? Continue Atorvastatin Calcium Tablet, 20 MG, 1 tablet, Orally, Once a day.?? * Procedure Codes:? * Follow Up:?6 Months * * Sign off status: Completed true * Provider:?Lennox Tsang MD Date:?0 08/06/2024 Generated for Gabriela velazquez/Sarah/Annabellaitting on:?08/16/2024 01:10 PM EDT History and Physical Notes * [...]
--- OUTSIDE RECORDS SUMMARY | 2024-08-16 13:10 | XMS_ITS ---
Author Organization Lennox Tsang MD Address [address] [place] [address] [place] [phone] Care Team Providers Care Pipe Fitter Welding Name Role Phone Lennox Tsang Primary Care Provider REASON FOR VISIT INR Encounters Encounter Location Date Provider Diagnosis Lennox Tsang MD [address] [place] [address] [place] [phone] 08/06/2024 Lennox Tsang Plan Of Treatment Next Appt Details Provider Name:Lennox white, 11/02/2024 07:15:00 AM, [address] [place] [address], [address], [phone], Provider Name:Lennox Reyes ier, 02/07/2025 02:00:00 PM, [address] [place] [address], [address], [phone], Provider Name:Lennox drummondr, 04/26/2025 07:00:00 AM, [address] [place] [address], [phone], Provider Name:Lennox white, 05/03/2025 02:30:00 PM, [address] [place] [address], [phone], Progress Notes * Ian HANOB:1975 (49 yo M)Acc No.[id number]:08/06/2024 Patient:?Armen HAN :1975???Age:49 Y???Sex:Male Address:[address] [place] [address], [place] [address] * true * Date:? Generated for Gabriela velazquez/Sarah/eTransmitting on:?08/16/2024 01:09 PM EDT
--- OUTSIDE RECORDS SUMMARY | 2024-08-16 13:10 | XMS_ITS | Encounter Summary ---
Author Organization [facility], Address [address] [place] [address] Phone Care Team Providers Care Share Holder Name Role Phone Lennox Tsang MD Primary Care Provider Encounter Details Date Type Department Care Team (Late st Contact Info) Description 08/09/2022 Documentation Only [facility] [address] [place] [address] Lennox Tsang MD [address] [place] [address] [address] [place] [address] Social History Tobacco Use Types Packs/Day Years [...] Visit [facility] [address] [place] [address] Preet Valenzuela DO [address] [place] [address] documented as of this encounter Visit Diagnoses Not on filedocumented in this encounter Care Teams Share Holder Relationship Specialty Start Date End Date Lennox Tsang MD [address] [place] [address] [address] [place] [address] PCP - General Internal Medicine 08/09/22 documented as of this encounter
--- OUTSIDE RECORDS SUMMARY | 2024-08-16 13:10 | XMS_ITS | Encounter Summary ---
Author Organization [facility] Address [address] [place] [address] Phone Care Team Providers Care Planer Stone Name Role Phone Lennox Tsang MD Primary Care Provider Encounter Details Date Type Department Care Team (Late st Contact Info) Description 01/27/2024 Orders Only [facility] [address] [address] Preet Valenzuela DO [address] [facility] [place] [address] Hypokalemia; Heart failure with normal [...] Visit [facility] [address] [place] [address] Preet Valenzuela DO [address] [facility] [place] [address] documented as of this encounter [...] Magnesium 1.6 1.6 - 2.3 mg/dL [facility] Blood (Blood, Venous) 03/21/2024 9:00 AM EDT 03/21/2024 us Preet Valenzuela DO LAB BLOOD ORDERABLES Final Resu lt [facility] [address] [place] [address] * (ABNORMAL) Renal Function Panel (03/21/2024 9:00 AM EDT) Glucose 112(H) 70 - 99 mg/dL [facility] BUN 23 6 - 24 mg/dL [facility] Creatinine 1.23 0.76 - 1.27 mg/dL [facility] eGFR CKD-EPI CR 2020 72 >59 mL/min/1.7 3 [facility] BUN/Creatinine Ratio 19 9 - 20 [facility] Sodium 136 134 - 144 mmol/L [facility] Potassium 5.1 3.5 - 5.2 mmol/L [facility] Chloride 95(L) 96 - 106 mmol/L [facility] Bicarbonate (CO2) 21 20 - 29 mmol/L [facility] Calcium 9.7 8.7 - 10.2 mg/dL [facility] Phosphorus 2.3(L) 2.8 - 4.1 mg/dL [facility] Albumin 4.5 4.1 - 5.1 g/dL [facility] Blood (Blood, Venous) 03/21/2024 9:00 AM EDT 03/21/2024 us Preet Valenzuela DO LAB BLOOD ORDERABLES Final Resu lt [facility] [address] [place] [phone] documented in this encounter Visit Diagnoses Diagnosis Hypokalemia Heart failure with normal ejection fraction (HCC) Hypercalcemia documented in this encounter Care Teams Planer Stone Relationship Specialty Start Date End Date Lennox Tsang MD [address] [place] [address] [address] [place], [place] PCP - General Internal Medicine 08/09/22 documented as of this encounter
--- OUTSIDE RECORDS SUMMARY | 2024-08-16 13:10 | XMS_ITS | Encounter Summary ---
Author Organization [facility] Address [address] [place] [address] Phone Care Team Providers Care Test Tech Name Role Phone Lennox Tsang MD Primary Care Provider +1- [phone] Encounter Details Date Type Department Care Team (Late st Contact Info) Description 09/21/2023 Documentation Only [facility] [address] [place] [address] Preet Valenzuela DO [address] [facility] [place] [address] Social History Tobacco Use Types [...] Visit [facility] [address] [place] [address] Preet Valenzuela DO [address] [facility] [place] [address] documented as of this encounter Visit Diagnoses Not on filedocumented in this encounter Care Teams Test Tech Relationship Specialty Start Date End Date Lennox Tsang MD [address] [facility] [address] [place], [place] PCP - General Internal Medicine 08/09/22 documented as of this encounter
--- OUTSIDE RECORDS SUMMARY | 2024-08-16 13:10 | XMS_ITS | Encounter Summary ---
Author Organization [facility] Address [address] [place] [address] Phone Care Team Providers Care Car Whacker Name Role Phone Lennox Tsang MD Primary Care Provider +1- [phone] Encounter Details Date Type Department Care Team (Late st Contact Info) Description 09/21/2023 Documentation Only [facility] [address] [place] [address] Preet Valenzuela DO [address] [facility] [place] [address] Social History Tobacco Use Types [...] Visit [facility] [address] [place] [address] Preet Valenzuela DO [address] [facility] [place] [address] documented as of this encounter Visit Diagnoses Not on filedocumented in this encounter Care Teams Car Whacker Relationship Specialty Start Date End Date Lennox Tsang MD [address] [facility] [address] [place], [place] PCP - General Internal Medicine 08/09/22 documented as of this encounter
--- OUTSIDE RECORDS SUMMARY | 2024-08-16 13:10 | XMS_ITS | Encounter Summary ---
Author Organization [facility] Address [address] [place] [address] Phone Care Team Providers Care Case Finishing Machine Adjuster Name Role Phone Lennox Tsang MD Primary Care Provider +1- [phone] Encounter Details Date Type Department Care Team (Late st Contact Info) Description 08/09/2024 Documentation Only [facility] [address] [place] [address] Preet Valenzuela DO [address] [facility] [place] [address] Social History Tobacco Use Types [...] Visit [facility] [address] [place] [address] Preet Valenzuela DO [address] [facility] [address] [place] [address] documented as of this encounter Visit Diagnoses Not on filedocumented in this encounter Care Teams Case Finishing Machine Adjuster Relationship Specialty Start Date End Date Lennox Tsang MD [address] [place], [place] PCP - General Internal Medicine 08/09/22 documented as of this encounter
--- OUTSIDE RECORDS SUMMARY | 2024-08-16 13:11 | XMS_ITS ---
Author Organization Lennox Tsang MD Address [address] [place] [address] [place] [phone] Care Team Providers Care Porter Luggage Name Role Phone Lennox Tsang Primary Care Provider REASON FOR VISIT FYI INR Encounters Encounter Location Date Provider Diagnosis Lennox Tsang MD [address] [place] [address] [place] [phone] 08/03/2024 Lennox Tsang Plan Of Treatment Next Appt Details Provider Name:Lennox white, 11/02/2024 07:15:00 AM, [address] [place] [address], [address] [place] [address], [id number], Provider Name:Lennox Reyes ier, 02/07/2025 02:00:00 PM, [address] [place] [address], [address], [phone], Provider Name:Lennox Reyes ier, 04/26/2025 07:00:00 AM, [address] [place] [address], [address], [phone], Provider Name:Lennox white, 05/03/2025 02:30:00 PM, [address] [place] [address], [address], [phone], Progress Notes * Steve HAN:1975 (49 yo M)Acc No.[id number]:08/03/2024 Patient:Armen BAKER :1975???Age:49 Y???Sex:Male Address:[address] [place] [address], [place] [address] * true * Date:? Generated for Gabriela velazquez/Sarah/eTransmitting on:?08/16/2024 01:11 PM EDT
--- OUTSIDE RECORDS SUMMARY | 2024-08-16 13:11 | XMS_ITS | Clinical Summary ---
Author Organization [facility], Address [address] [address] Phone Care Team Providers Care Knitting Machine Tender Name Role Phone Lennox Tsang MD Primary [...] Encounters Date Type Department Care Team Description 08/09/2024 Documentation Only [facility] [address] [place] [address] Preet Valenzuela DO 07/23/2024 Refill [facility] [address] [place] [address] Preet Valenzuela DO Hypokalemia; Heart failure with normal ejection fraction (HCC) 07/13/2024 Orders Only [facility] [address] [place] [address] Preet Valenzuela DO Hypokalemia; Heart [...] Visit [facility] [address] [place] [address] Preet Valenzuela DO [address] [place] [address] [place] [address] Health Maintenance Due Date Last Done Comments Hepatitis B Vaccine (1 of 3 - 19+ 3-dose series) 01/29 Pneumococcal Vaccine: Pediat rics (0 to 5 Years) and At-Risk Patients (6 to 64 Years) (2 of 2 - PCV) 04/03/2021 04/03/2020 Influenza Vaccine (#1) 2024 Insurance [address] [place] [address] [facility] Care Teams Knitting Machine Tender Relationship Specialty Start Date End Date Lennox Tsang MD [address] [place], [place] PCP - General Internal Medicine 08/09/22
--- OUTSIDE RECORDS SUMMARY | 2024-08-16 13:11 | XMS_ITS | Clinical Summary ---
Author Organization [facility] Address [address] [place] [address] Care Team Providers Care Rn Advice Name Role Phone Lennox Tsang MD Primary Care Provider +1- [phone] Allergies No known active allergies Medications metoprolol [...] M, W, Th, Sat, Sun. Coumadin clinic [place] [facility]. managing INR Active atorvastatin (LIPITOR) 20 mg tablet Take 1 tablet (20 mg total) by mouth at bedtime. Active metOLazone (ZAROXOLYN) 2.5 mg tablet TAKE 1 TABLET BY MOUTH THREE TIMES A WEEK. 36 tablet 2 5 Active Active Problems Problem Noted Date Diagnosed Date [...] Type Department Care Team Description 06/18/2024 Telephone [facility] [address] [place] [phone] Hilda Mcgregor NP echocardiogram 06/01/2024 8:10 AM EST Office Visit [facility] Moise [address] [place] [phone] Hilda Mcgregor NP Shortness of breath (Primary [...] Description 09/11/2024 9:20 AM EDT Office Visit [facility] [address] [place] [address] Zac Lal MD [address] [place] [address] [address] [place] [address] Health Maintenance Due Date Last Done Comments [...] GEMUSE QTc 490 ms GEMUSE P Wave [place] 31 degrees GEMUSE R [place] 42 degrees GEMUSE T [place] -148 degrees GEMUSE ECG Interpretation Sinus rhythm with short MO Left bundle branch block Abnormal ECG No previous ECGs available Confirmed by Beba LAL JAMES ([id number]) on 06/01/2024 1:19:38 PM GEMUSE 06/01/2024 8:17 AM EST 06/01/2024 1:19 PM EST us Hilda Mcgregor NP ECG ORDERABLES Edited Result - Final GEMUSE from Last 3 Months Insurance [facility] Care Teams Rn Advice Relationship Specialty Start Date End Date Lennox Tsang MD PCP - General Internal Medicine 04/09/20
--- OUTSIDE RECORDS SUMMARY | 2024-08-16 13:11 | XMS_ITS | Encounter Summary ---
Author Organization [facility] Address [address] [place] [address] Phone Care Team Providers Care Risk Engineer Name Role Phone Lennox Tsang MD Primary Care Provider +1- [phone] Encounter Details Date Type Department Care Team (Late st Contact Info) Description 09/01/2023 Documentation Only [facility] [address] [place] [address] Preet Valenzuela DO [address] [facility] [place] [address] Social History Tobacco Use Types [...] [facility] [address] [facility] [place] [address] Preet Valenzuela DO [address] [facility] [place] [address] documented as of this encounter Visit Diagnoses Not on filedocumented in this encounter Care Teams Risk Engineer Relationship Specialty Start Date End Date Lennox Tsang MD [address] [facility] [address] [place], [place] PCP - General Internal Medicine 08/09/22 documented as of this encounter
--- OUTSIDE RECORDS SUMMARY | 2024-08-16 13:11 | XMS_ITS | Encounter Summary ---
Author Organization [facility] Address [address] [place] [address] Phone Care Team Providers Care Service Delivery Supervisor Name Role Phone Lennox Tsang MD Primary Care Provider Encounter Details Date Type Department Care Team (Late st Contact Info) Description 01/06/2023 Documentation Only [facility] [address] [place] [address] Preet Valenzuela DO [address] [facility] [place] [phone] Social History Tobacco Use Types Packs/Day Years [...] Visit [facility] [address] [place] [phone] Preet Valenzuela DO [address] [facility] [place] [phone] Scheduled Orders Name Type Priority Associated Diagnoses [...] 10:08 AM EST) Creatinine, Urine 165.1 MG/DL [facility] Comment: Testing performed or reported by [facility], a Service of [address] [address] Stephen Buckley MD, [facility] CLIA# [id number] Urine (Urine, Clean Catch) 06/01/2023 10:08 AM EST 06/01/2023 10:34 AM EST Preet Valenzuela LAB URINE ORDERABLES Final Resu lt Performing Organization Address [facility]/ZIP Co de Phone Number [facility] * (ABNORMAL) PTH, intact (06/01/2023 10:08 AM EST) PTH, Intact 124(H) (15-65) PG/ML [facility] Comment: Testing performed or reported by [facility], a Service of [address] [address] Stephen Buckley MD, [facility] IA# [id number] Blood (Blood, Venous) 06/01/2023 10:08 AM EST 06/01/2023 10:33 AM EST Preet Valenzuela LAB BLOOD ORDERABLES Final Resu lt [facility] documented in this encounter Visit Diagnoses Diagnosis Hypercalcemia- Primary documented in this encounter Care Teams Service Delivery Supervisor Relationship Specialty Start Date End Date Lennox Tsang MD [address] [facility] [address] [place], [place] PCP - General Internal Medicine 08/09/22 documented as of this encounter
--- OUTSIDE RECORDS SUMMARY | 2024-08-16 13:11 | XMS_ITS | Encounter Summary ---
Author Organization [facility] [place], Address [address] [place] [address] Phone Care Team Providers Care Intermediate Teacher Name Role Phone Lennox Tsang MD Primary Care Provider Reason for Visit * Reason Comments Med Refill Encounter Details Date Type Department Care Team (Late st Contact Info) Description 08/29/2023 Refill [facility] [address] [place] [address] Preet Valenzuela DO [address] [facility] [place] [address] Hypokalemia; Heart failure with normal [...] [facility] [address] [place] [address] Preet Valenzuela DO [address] [facility] [place] [address] documented as of this encounter Visit Diagnoses Diagnosis Hypokalemia Heart failure with normal ejection fraction (HCC) documented in this encounter Care Teams Intermediate Teacher Relationship Specialty Start Date End Date Lennox Tsang MD [address] [facility] [address] [place], [place] PCP - General Internal Medicine 08/09/22 documented as of this encounter
--- OUTSIDE RECORDS SUMMARY | 2024-08-16 13:11 | XMS_ITS | Encounter Summary ---
Author Organization [facility] Address [address] [place] [address] Phone Care Team Providers Care Supervisor Kennel Name Role Phone Lennox Tsang MD Primary Care Provider Encounter Details Date Type Department Care Team (Late st Contact Info) Description 07/13/2024 Orders Only [facility] [address] [place] [address] Preet Valenzuela DO [address] [facility] [place] [address] Hypokalemia; Heart failure with normal [...] Visit [facility] [address] [place] [address] Preet Valenzuela DO [address] [facility] [place] [address] documented as of this encounter Visit Diagnoses Diagnosis Hypokalemia Heart failure with normal ejection fraction (HCC) Hypercalcemia documented in this encounter Care Teams Supervisor Kennel Relationship Specialty Start Date End Date Lennox Tsang MD [address] [place] [address] [address] [place] PCP - General Internal Medicine 08/09/22 documented as of this encounter
--- OUTSIDE RECORDS SUMMARY | 2024-08-16 13:12 | XMS_ITS | Patient Health Record ---
Author Organization [facility] Address [address] [place] [address] Care Team Providers Care Paid Search Marketing Strategist Name Role Phone Sharan DIAZ, Lennox Primary Care Provider Gurjit Goodman Unavailable [phone] Allergies No Known Allergies Reason For Referral [...] Problem Status W/U Status Risk Notes Problem 35257988 Rectal bleeding (K62.5) Active confirmed Problem 544182007 Encounter for screening for malignant neoplasm of colon (Z12.11) Active confirmed Problem Diverticular disease of colon (196003836) Diverticulosis of large intestine without perforation or abscess without bleeding (K57.30) Active confirmed Plan Of Treatment Pending Test Test Name Order Date Pathology 11/24/2022 Future Test Test Name Order Date COLONOSCOPY 10/01/2022 Insurance Providers Payer Name Payer Address Payer Phone Subscriber Number Group Number Insured Name Patient Relationship to Insured Coverage Start Date Coverage End Date [facility] [address] [place] [phone] [id number] SARINA HAN Self - patient is the insured Medical (General) History Medical History History ICD Code Denies [place],DM,CVA,Lung disease,renal dise ase 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 Lal in [place] Sleep apnea-CPAP Arrhythmia with PVC's Gout He describes that he has bee n told at [facility] that he is a difficult intubation Surgical History Surgery Date(Month/Year) Heart surgery for IHSS--his heart surgery in 2001 involved replacement of the aortic valve with a [employer] Fuad's valve 1984,1988,2001 Cervical spine fusion C1-C5 1988 Hernia repair--Bilateral inguinal and um bilical 2011,2013,2017, Tonsillectomy and adenoidectomy
== END 2024-08-16 10:45 | disposition home or self-care (01) ==
LOC: HO.ACS 10:12
PROVIDERS: PCP Internal Medicine; Visit Provider Internal Medicine Medical Oncology
DX: Z79.01 Long term (current) use of anticoagulants (principal)

== ENCOUNTER → 2024-08-16 10:12 | Outpatient (BNVA) | payer OTHER, SELFPAY | PROVIDERS: PCP Internal Medicine; Visit Provider Internal Medicine Medical Oncology | DX: Z95.2 Presence of prosthetic heart valve (principal); Z51.81 Encounter for therapeutic drug level monitoring; Z79.01 Long term (current) use of anticoagulants | CPT/HCPCS: 85610; 99211 ==

== ENCOUNTER 2024-08-21 11:00 | Outpatient (AMB) | payer OTHER, SELFPAY ==
--- NOTE | 2024-08-21 11:02 | MHC.OFFVISCO ---
Intake Intake Visit Reasons: Anticoagulation Allergies No Known Allergies Allergy (Verified 08/21/24 11:00) Medication List - Last Reconciled 08/21/24 by Mishel Logan RN albuterol sulfate 90 mcg/actuation 0 mcg inhalation allopurinol 300 mg PO DAILY atorvastatin 20 mg PO QPM colchicine 0.6 mg PO BID PRN metformin ER 1,000 mg PO BID metoprolol succinate ER 50 mg PO DAILY spironolactone 100 mg PO BID torsemide 40 mg PO DAILY [VITAMIN D 3 PO] warfarin 5 mg See Protocol PO DAILY Nursing Note INR received from [facility] INR is: 3.6 INR out of range or patient indicated changes in assessment questionnaire Telephone call to patient for further assessment - previous INR was elevated and has improved Medication or supplement: no changes Diet: good- reminded him that cooked greens lower INR more than raw greens Dose: usual dose 7.5mg x 3 days/ 10mg x 4 days Signs and symptoms of bleeding and bruising discussed Patient will go to ER with any signs and symptoms of bleeding, or clotting or unusual bruising? Retest: 2 weeks Patient verbalizes understanding of instructions given and retest date with read back Anti-Coag Initial Assessment Social Hx Patient Tobacco Use Status: Never used Tobacco Coding Level of Care Code Est Patient Level 1 Diagnoses Current use of anticoagulant therapy Z79.01 Assessment & Plan Assessment & Plan (1) Current use of anticoagulant therapy: Code(s): Z79.01 - longterm (current) use of anticoagulants Category: Medical
--- OUTSIDE RECORDS SUMMARY | 2024-08-21 13:13 | XMS_ITS | Continuity of Care Document ---
Author Organization [facility] Address [address] [place] [address]- Care Team Providers Care Supervisor Pyrotechnic Loading Name Role Phone Lennox Tsang MD Primary Care Physician [phone] Encounter [facility] Date(s): 07/20/24 - 08/19/24 [facility] [address] [place] [address] Encounter Type: Triage Allergies, Adverse Reactions, Alerts No Known Allergies Immunizations Given and Recorded Vaccine Date Status Refusal Reason SARS-CoV-2 (COVID-19) mRNA-1273 vaccine 03/19/21 R ecorded SARS-CoV-2 (COVID-19) mRNA-1273 vaccine 06/21/20 R ecorded SARS-CoV-2 (COVID-19) mRNA-1273 vaccine 05/24/20 R ecorded pneumococcal 23-valent vaccine 1 04/03/20 Given 1Early/Late Reason: Early/Late Reason: Med Not Available Medications albuterol inhaler (OP) See Instructions, 2 puffs inhaled q6h prn, 0 Refills, Maintenance Start Date: 05/13/20 Status: Ordered Repeat number: 1 Aldactone 25 mg oral tablet 25 mg, 1, tablet, By Mouth, Daily, # 30 tablet, Refills 1, Tot. Refills 1, Maintenance, 07/10/22 10:23:00 AM EST, Route to Pharmacy Electronically, [facility], Partial fill upon patient request if the prescription is for a schedule II opioid drug., 163, cm, 07/10/22 7:15:00 EST, Height, 106.9, kg, 07/09/22 7:18:00 EST, Dry Weight Start Date: 07/10/22 Status: Ordered Quantity: 30.0 Unit: tablet Repeat number: 2 allopurinol 300 mg oral tablet 300 mg, 1, tablet, By Mouth, Daily, # 30 tablet, Refills 0, Maintenance, 05/27/22 7:03:00 PM EST, Partial fill upon patient request if the prescription is for a schedule II opioid drug. Start Date: 05/27/22 Status: Ordered Quantity: 30.0 Unit: tablet Repeat number: 1 atorvastatin 20 mg oral tablet 1 tablet = 20 mg, By Mouth, Daily, # 30 tablet, 0 Refills, Maintenance, 07/12/24 7:37:00 AM EST, Tablet, Partial fill upon patient request if the prescription is for a schedule II opioid drug. Start Date: 07/12/24 Status: Ordered Quantity: 30.0 Unit: tablet Repeat number: 1 colchicine 0.6 mg oral capsule See Instructions, 2 capsules by mouth, then 1 capsule by mouth 1 hour later, # 3 capsule, 0 Refills, Maintenance, 05/14/20 9:28:00 AM EST, [facility]/pharmacy #[id number], Partial fill upon patient request if theprescription is for a schedule II opioid drug., 163, cm, 05/13/20 18:15:00 EST, Height, 106.7, kg, 05/13/20 18:15:00 EST, Dry Weight Start Date: 05/14/20 Status: Ordered Quantity: 3.0 Unit: capsule Repeat number: 1 metFORMIN 500 mg oral tablet, extended release 4 tablet = 2,000 mg, By Mouth, Daily, take 1 tablet a day for 1 week, increase by 1 tab weekly divided in 2 doses., # 120 tablet, 11 Refills, Maintenance, 08/31/23 2:13:00 PM EDT, ER Tablet, [facility], Partial fill upon patient request if the prescription is for a schedule II opioid drug., 163, cm, 08/31/23 13:40:00 EDT, Height, 97, kg, 06/29/23 10:47:00 EST, Dry Weight Start Date: 08/31/23 Status: Ordered Quantity: 120.0 Unit: tablet Repeat number: 12 metolazone 2.5 mg oral tablet 2.5 mg, 1, tablet, By Mouth, Every Tuesday and , # 30 tablet, Refills 0, Tot. Refills 0, Maintenance, 06/03/22 3:28:00 PM EST, Route to Pharmacy Electronically, [facility] 3, Partial fill upon patient request if the prescription is for a schedule II opioid drug., 163, cm, 06/03/2313:57:00 EST, Height, 112.7, kg, 05/27/22 19:38:00 EST, Dry Weight Start Date: 06/03/22 Status: Ordered Quantity: 30.0 Unit: tablet Repeat number: 1 metoprolol succinate 50 mg oral capsule, extended release 1 capsule = 50 mg, By Mouth, Daily, # 30 capsule, 0 Refills, Maintenance, 04/03/20 3:12:00 PM EST, ER Capsule, [facility] 3, Partial fill upon patient request, 163, cm, 04/03/20 11:45:00 EST, Height, 108, kg, 04/02/20 20:37:00 EST, Dry Weight Start Date: 04/03/20 Status: Ordered Quantity: 30.0 Unit: capsule Repeat number: 1 torsemide 20 mg oral tablet 1 tablet = 20 mg, By Mouth, Daily, # 30 tablet, 0 Refills, Maintenance, 07/12/24 8:25:00 AM EST, Tablet, Partial fill upon patient request if the prescription is for a schedule II opioid drug. Start Date: 07/12/24 Status: Ordered Quantity: 30.0 Unit: tablet Repeat number: 1 warfarin 5 mg oral tablet See Instructions, 10 mg by mouth every tue, , , tue, sun. 7.5 mg by mouth every tue., 0 Refills, Maintenance, 05/27/22 7:42:00 PM EST, Tablet, Partial fill upon patient request if the prescription is for a schedule II opioid drug. Start Date: 05/27/22 Status: Ordered Repeat number: 1 warfarin 5 mg oral tablet 1 tablet = 5 mg, By Mouth, Daily, TAKE 1 TABLET EVERY DAY OR DIRECTED BY PCP OFFICE ACCORDING TODONALD, # 90 tablet, 0 Refills, Maintenance, 07/12/24 8:05:00 AM EST, Tablet, Partial fill upon patientrequest if the prescription is for a schedule II opioid drug. Start Date: 07/12/24 Status: Ordered Quantity: 90.0 Unit: tablet Repeat number: 1 Problem List Condition Confirmation Course Effective Dates Status Health St atus Informant Congenital subaortic stenosis Confirmed Active S/p AVR Confirmed Active Obese class II Confirmed Active Social History Social History Type Response Smoking Status Never smoker; Tobacc o user in household: No entered on: 01/29/14 Sex Male Sex Representation Male (finding) Patient Care team information Care Team Personnel Name: Lennox Tsang MD Position: Reference Physician Member Role: PCP Address: [address] [place] [address] [place] [address]- Telecom: [phone] Name: Preet Valenzuela DO Position: [facility] Renal MD Member Role: Lifetime Consulting Physician Address: [address] [place] [address] [address] [facility] [place], [place] [address] Telecom: Name: Mishel Hogan RN Position: [facility] RN Member Role: Primary Care Nurse Name: Becka Masters RN Position: [facility] Onco RN Member Role: Primary Care Nurse Name: Naya Willson RN Position: [facility] RN Member Role: Primary Care Nurse Care Team Related Persons Name: RUDDY HAN Name: PITER HAN Insurance Providers Guarantor name: SARINA EMELY Health Plan Information #: 1 Payer: TESSY [facility] PPO Member Number: NA Policy Number: NA Group Number: NA
--- OUTSIDE RECORDS SUMMARY | 2024-08-21 13:13 | XMS_ITS | Encounter Summary ---
Author Organization [facility] [place], Address [address] [place] [address] Phone Care Team Providers Care Sewing Machine Operator Plastic Zipper Name Role Phone Lennox Tsang MD Primary Care Provider [phone] Encounter Details Date Type Department Care Team (Late st Contact Info) Description 08/09/2022 Documentation Only [facility] [address] [place] [address] Lennox Tsang MD [address] [place] [address] [address] [place] [address] Social History Tobacco Use Types Packs/Day Years [...] Visit [facility] [address] [place] [address] Preet Valenzuela DO [address] [place] [address] documented as of this encounter Visit Diagnoses Not on filedocumented in this encounter Care Teams Sewing Machine Operator Plastic Zipper Relationship Specialty Start Date End Date Lennox Tsang MD [address] [place] [address] [address] [place] [address] PCP - General Internal Medicine 08/09/22 documented as of this encounter
--- OUTSIDE RECORDS SUMMARY | 2024-08-21 13:13 | XMS_ITS | Continuity of Care Document ---
Author Organization [facility] Address [address] [place] [address]- Care Team Providers Care Real Estate Processor Name Role Phone Lennox Tsang MD Primary Care Physician [phone] Encounter [facility] Date(s): 07/19/24 - 08/18/24 [facility] [address] [place] [id number] Encounter Type: Triage Allergies, Adverse Reactions, Alerts [...] 0 Refills, Maintenance, 05/14/20 9:28:00 AM EST, [facility]/pharmacy #[id number], Partial fill upon patient [...] Maintenance, 08/31/23 2:13:00 PM EDT, ER Tablet, [facility], Partial fill upon patient request [...] 3:28:00 PM EST, Route to Pharmacy Electronically, [facility], Partial fill upon patient request if [...] Maintenance, 04/03/20 3:12:00 PM EST, ER Capsule, [facility], Partial fill upon patient request, 163, [...] Position: Reference Physician Member Role: PCP Address: [address] [place] [address] [place] [address]- Telecom: [phone] Name: Preet Valenzuela DO Position: [facility] Renal MD Member Role: Lifetime Consulting Physician Address: [address] [place] [address] [address] [facility] [place], [place] [address] Telecom: Name: Mishel Hogan RN Position: [facility] RN Member Role: Primary Care Nurse Name: Becka Masters RN Position: [facility] Onco RN Member Role: Primary Care Nurse Name: Naya Willson RN Position: [facility] RN Member Role: Primary Care Nurse Care Team Related Persons Name: RUDDY HAN Name: PITER HAN Insurance Providers Guarantor name: SARINA EMELY Health Plan Information #: 1 Payer: TESSY [facility] PPO Member Number: NA Policy Number: NA Group Number: NA
--- OUTSIDE RECORDS SUMMARY | 2024-08-21 13:13 | XMS_ITS | Encounter Summary ---
Author Organization [facility] Address [address] [place] [address] Phone Care Team Providers Care Terrazzo Tile Setter Name Role Phone Lennox Tsang MD Primary Care Provider [phone] Encounter Details Date Type Department Care Team (Late st Contact Info) Description 08/09/2024 Documentation Only [facility] [address] [place] [address] Preet Valenzuela DO [address] [facility] [place] [address] Social History Tobacco Use Types [...] And [facility] [address] [place] [address] Preet Valenzuela DO [address] [facility] [address] [place] [address] documented as of this encounter Visit Diagnoses Not on filedocumented in this encounter Care Teams Terrazzo Tile Setter Relationship Specialty Start Date End Date Lennox Tsang MD [address] [place], [place] PCP - General Internal Medicine 08/09/22 documented as of this encounter
--- OUTSIDE RECORDS SUMMARY | 2024-08-21 13:13 | XMS_ITS | Encounter Summary ---
Author Organization [facility] Address [address] [place] [address] Phone Care Team Providers Care Beverage Steward Name Role Phone Lennox Tsang MD Primary Care Provider Encounter Details Date Type Department Care Team (Late st Contact Info) Description 04/20/2024 Orders Only [facility] [address] [facility] [place] [address] Preet Valenzuela DO [address] [facility] [place] [address] Hypokalemia; Heart failure with normal [...] Visit [facility] [address] [place] [address] Peret Valenzuela DO [address] [facility] [place] [address] documented as of this encounter Visit Diagnoses Diagnosis Hypokalemia Heart failure with normal ejection fraction (HCC) Hypercalcemia documented in this encounter Care Teams Beverage Steward Relationship Specialty Start Date End Date Lennox Tsang MD [address] [place] [address] [address] [place] PCP - General Internal Medicine 08/09/22 documented as of this encounter
--- OUTSIDE RECORDS SUMMARY | 2024-08-21 13:13 | XMS_ITS | Encounter Summary ---
Author Organization [facility] Address [address] [place] [address] Phone Care Team Providers Care Supervising Bailiff Name Role Phone Lennox Tsang MD Primary Care Provider Encounter Details Date Type Department Care Team (Late st Contact Info) Description 01/27/2024 Orders Only [facility] [address] [place] [address] Preet Valenzuela DO [address] [facility] [address] [place] [address] Hypokalemia; Heart failure with normal [...] Visit [facility] [address] [place] [address] Preet Valenzuela DO [address] [facility] [address] [place] [address] documented as of this encounter [...] Magnesium 1.6 1.6 - 2.3 mg/dL [facility] Blood (Blood, Venous) 03/21/2024 9:00 AM EDT 03/21/2024 us Preet Valenzuela DO LAB BLOOD ORDERABLES Final Resu lt [facility] [address] [place] [address] * (ABNORMAL) Renal Function Panel (03/21/2024 9:00 AM EDT) Glucose 112(H) 70 - 99 mg/dL [facility] BUN 23 6 - 24 mg/dL [facility] Creatinine 1.23 0.76 - 1.27 mg/dL [facility] eGFR CKD-EPI CR 2020 72 >59 mL/min/1.7 3 [facility] BUN/Creatinine Ratio 19 9 - 20 [facility] Sodium 136 134 - 144 mmol/L [facility] Potassium 5.1 3.5 - 5.2 mmol/L [facility] Chloride 95(L) 96 - 106 mmol/L [facility] Bicarbonate (CO2) 21 20 - 29 mmol/L [facility] Calcium 9.7 8.7 - 10.2 mg/dL [facility] Phosphorus 2.3(L) 2.8 - 4.1 mg/dL [facility] Albumin 4.5 4.1 - 5.1 g/dL [facility] Blood (Blood, Venous) 03/21/2024 9:00 AM EDT 03/21/2024 us Preet Valenzuela DO LAB BLOOD ORDERABLES Final Resu lt [facility] [address] [place] [phone] documented in this encounter Visit Diagnoses Diagnosis Hypokalemia Heart failure with normal ejection fraction (HCC) Hypercalcemia documented in this encounter Care Teams Supervising Bailiff Relationship Specialty Start Date End Date Lennox Tsang MD [address] [place] [address] [address] [place], [place] PCP - General Internal Medicine 08/09/22 documented as of this encounter
--- OUTSIDE RECORDS SUMMARY | 2024-08-21 13:14 | XMS_ITS ---
Author Organization Lennox Tsang MD Address [address] [place] [address] [place] [id number] Care Team Providers Care Land Leasing Examiner Name Role Phone Lennox Tsang Primary Care Provider [phone] REASON FOR VISIT INR Encounters Encounter Location Date Provider Diagnosis Lennox Tsang MD [address] [place] [address] [place] [phone] 08/06/2024 Lennox Tsang Plan Of Treatment Next Appt Details Provider Name:Lennox white, 11/02/2024 07:15:00 AM, [address] [place] [address], [address], [phone], Provider Name:Lennox Reyes ier, 02/07/2025 02:00:00 PM, [address] [place] [address], [address], [phone], Provider Name:Lennox drummondr, 04/26/2025 07:00:00 AM, [address] [place] [address], [phone], Provider Name:Lennox white, 05/03/2025 02:30:00 PM, [address] [place] [address], [phone], Progress Notes * Ian HANOB:1975 (49 yo M)Acc No.[id number]:08/06/2024 Patient:?Armen HAN :1975???Age:49 Y???Sex:Male Address:[address] [place] [address], [place] [address] * true * Date:? Generated for Gabriela velazquez/Sarah/eTransmitting on:?08/21/2024 01:13 PM EDT
--- OUTSIDE RECORDS SUMMARY | 2024-08-21 13:14 | XMS_ITS | Encounter Summary ---
Author Organization [facility] Address [address] [place] [address] Phone Care Team Providers Care Manager Fund Name Role Phone Lennox Tsang MD Primary Care Provider [phone]- [phone] Encounter Details Date Type Department Care Team (Late st Contact Info) Description 09/21/2023 Documentation Only [facility] [address] [place] [address] Preet Valenzuela DO [address] [facility] [place] [address] Social History Tobacco Use Types [...] Visit [facility] [address] [facility] [place] [address] Preet Valenzuela DO [address] [facility] [place] [address] documented as of this encounter Visit Diagnoses Not on filedocumented in this encounter Care Teams Manager Fund Relationship Specialty Start Date End Date Lennox Tsang MD [address] [place], [place] PCP - General Internal Medicine 08/09/22 documented as of this encounter
--- OUTSIDE RECORDS SUMMARY | 2024-08-21 13:14 | XMS_ITS | Encounter Summary ---
Author Organization [facility] Address [address] [place] [address] Phone Care Team Providers Care Director Of Automation Name Role Phone Lennox Tsang MD Primary Care Provider [phone]- [phone] Encounter Details Date Type Department Care Team (Late st Contact Info) Description 09/01/2023 Documentation Only [facility] [address] [place] [address] Preet Valenzuela DO [address] [facility] [place] [address] Social History Tobacco Use Types [...] Visit [facility] [address] [facility] [place] [address] Preet Valenzuela DO [address] [facility] [place] [address] documented as of this encounter Visit Diagnoses Not on filedocumented in this encounter Care Teams Director Of Automation Relationship Specialty Start Date End Date Lennox Tsang MD [address] [facility] [address] [place], [place] PCP - General Internal Medicine 08/09/22 documented as of this encounter
--- OUTSIDE RECORDS SUMMARY | 2024-08-21 13:14 | XMS_ITS ---
Author Organization Lennox Tsang MD Address [address] [place], [place] [id number] Care Team Providers Care Preprint Analyst Name Role Phone Lennox Tsang Primary Care Provider [phone] Allergies Allergen (clinical drug ingredient) Drug/Non Drug [...] Location Date Provider Diagnosis Lennox Tsang MD [address] [place] [address] [place] [phone] 08/06/2024 Lennox Tsang Chronic systolic congestive heart [...] Reason: Provider Name:Lennox white, 11/02/2024 07:15:00 AM, [address] [place] [address], Suite [facility], [place], [place], [phone], Provider Name:Lennox white, 02/07/2025 02:00:00 PM, [address] [place] [address], [address], [phone], Provider Name:Lennox white, 04/26/2025 07:00:00 AM, [address] [place] [address], [place] [address], [place], [place], [phone], Provider Name:Lennox white, 05/03/2025 02:30:00 PM, [address] [facility], [address], [place], [place], [phone], Progress Notes * Ian HANOB:1975 (49 yo M)Acc No.[id number]:08/06/2024 Progress Notes Patient:?Armen HAN Provider:?Lennox Tsang MD :1975???Age:49 Y???Sex:Male Armando e:08/06/2024 Address:[address] [place], [place] [id number] Subjective: * Chief Complaints: * ???3 MO [...] reconciled with the patient * Allergies:?Ibuprofen: elizabeth avila[Allergies Verified] Objective: * Vitals:?Ht: 64, Wt: 218, [...] Tsang MD Date:?0 08/06/2024 Generated for Gabriela velazquez/Sarah/Nahid on:?08/21/2024 01:14 PM EDT History and Physical Notes * [...]
--- OUTSIDE RECORDS SUMMARY | 2024-08-21 13:14 | XMS_ITS | Patient Health Record ---
Author Organization [facility] Address [address] [facility] [address] [place] [address] Care Team Providers Care Property Site Manager Name Role Phone Lennox Tsang Primary Care [...] Status Risk Notes Problem Atherosclerosis of artery (610214763) Arterial atherosclerosis (I70.8) Active confirmed Plan Of Treatment Pending Test Test Name Order Date EMIL 04/19/2022 Ultrasound : Artery Doppler Low Ext Bila t 04/19/2022 X ray : Foot, left 3v 04/19/2022 Insurance Providers Payer Name Payer Address Payer Phone Subscriber Number Group Number Insured Name Patient Relationship to Insured Coverage Start Date Coverage End Date [facility] [address] [place], [place] [address] [id number] Armen Olson Self - patient is the [...]
--- OUTSIDE RECORDS SUMMARY | 2024-08-21 13:14 | XMS_ITS | Encounter Summary ---
Author Organization [facility] Address [address] [place] [address] Phone Care Team Providers Care Instrument Mechanic Name Role Phone Lennox Tsang MD Primary Care Provider [phone]- [phone] Encounter Details Date Type Department Care Team (Late st Contact Info) Description 09/21/2023 Documentation Only [facility] [address] [place] [address] Preet Valenzuela DO [address] [facility] [place] [address] Social History Tobacco Use Types [...] Visit [facility] [address] [facility] [place] [address] Preet Valenzuela DO [address] [facility] [place] [address] documented as of this encounter Visit Diagnoses Not on filedocumented in this encounter Care Teams Instrument Mechanic Relationship Specialty Start Date End Date Lennox Tsang MD [address] [facility] [facility] [address] [place], [place] PCP - General Internal Medicine 08/09/22 documented as of this encounter
--- OUTSIDE RECORDS SUMMARY | 2024-08-21 13:15 | XMS_ITS | Clinical Summary ---
Author Organization [facility], Address [address] [address] Phone Care Team Providers Care Employment Clerk Name Role Phone Lennox Tsang MD Primary Care Provider [phone] Allergies No known active allergies Medications allopurinol [...] Only [facility] [address] [place] [address] Preet Valenzuela DO 07/23/2024 Refill [facility] [address] [place] [address] Preet Valenzuela DO Hypokalemia; Heart failure with normal ejection fraction (HCC) 07/13/2024 Orders Only [facility] [address] [place] [address] Preet Valenzuela DO Hypokalemia; Heart [...] Visit [facility] [address] [place] [address] Preet Valenzuela DO [address] [place] [address] [place] [address] Health Maintenance Due Date Last Done Comments Hepatitis B Vaccine (1 of 3 - 19+ 3-dose series) 01/29 Pneumococcal Vaccine: Pediat rics (0 to 5 Years) and At-Risk Patients (6 to 64 Years) (2 of 2 - PCV) 04/03/2021 04/03/2020 Influenza Vaccine (#1) 2024 Insurance [address] [place] [address] [facility] Care Teams Employment Clerk Relationship Specialty Start Date End Date Lennox Tsang MD [address] [facility] [address] [place], [place] PCP - General Internal Medicine 08/09/22
--- OUTSIDE RECORDS SUMMARY | 2024-08-21 13:15 | XMS_ITS ---
Author Organization Lennox Tsang MD Address [address] [place] [address] [place] [phone] Care Team Providers Care Repairer Switchgear Name Role Phone Lennox Tsang Primary Care Provider [phone] REASON FOR VISIT FYI INR Encounters Encounter Location Date Provider Diagnosis Lennox Tsang MD [address] [place] [address] [place] [address] [phone] 08/03/2024 Lennox Tsnag Plan Of Treatment Next Appt Details Provider Name:Lennox white, 11/02/2024 07:15:00 AM, [address] [place] [address], [address] [place] [address], [phone], Provider Name:Lennox Reyes ier, 02/07/2025 02:00:00 PM, [address] [place] [address], [address], [phone], Provider Name:Lennox Reyes ier, 04/26/2025 07:00:00 AM, [address] [place] [address], [address], [phone], Provider Name:Lennox white, 05/03/2025 02:30:00 PM, [address] [place] [address], [address], [phone], Progress Notes * Steve HAN:1975 (49 yo M)Acc No.[id number]:08/03/2024 Patient:Armen BAKER :1975???Age:49 Y???Sex:Male Address:[address] [place] [address], [place] [address] * true * Date:? Generated for Gabriela velazquez/Sarah/eTransmitting on:?08/21/2024 01:14 PM EDT
--- OUTSIDE RECORDS SUMMARY | 2024-08-21 13:15 | XMS_ITS | Encounter Summary ---
Author Organization [facility] Address [address] [place] [address] Phone Care Team Providers Care Juvenile Probation Officer Name Role Phone Lennox Tsang MD Primary Care Provider Encounter Details Date Type Department Care Team (Late st Contact Info) Description 07/13/2024 Orders Only [facility] [address] [place] [address] Preet Valenzuela DO [address] [facility] [place] [address] Hypokalemia; Heart failure with normal [...] Visit [facility] [address] [place] [address] Preet Valenzuela DO [address] [facility] [address] [place] [address] documented as of this encounter Visit Diagnoses Diagnosis Hypokalemia Heart failure with normal ejection fraction (HCC) Hypercalcemia documented in this encounter Care Teams Juvenile Probation Officer Relationship Specialty Start Date End Date Lennox Tsang MD [address] [place] [address] [address] [place] PCP - General Internal Medicine 08/09/22 documented as of this encounter
--- OUTSIDE RECORDS SUMMARY | 2024-08-21 13:15 | XMS_ITS | Encounter Summary ---
Author Organization [facility] Address [address] [place] [address] Phone Care Team Providers Care Coating Manager Name Role Phone Lennox Tsang MD Primary Care Provider Encounter Details Date Type Department Care Team (Late st Contact Info) Description 01/06/2023 Documentation Only [facility] [address] [place] [phone] Preet Valenzuela DO [address] [facility] [place] [phone] Social History Tobacco Use Types Packs/Day Years [...] Visit [facility] [address] [place] [phone] Preet Valenzuela DO [address] [facility] [place] [phone] Scheduled Orders Name Type Priority Associated Diagnoses [...] 10:08 AM EST) Creatinine, Urine 165.1 MG/DL [facility] Comment: Testing performed or reported by [facility], a Service of [address] [address] Stephen Buckley MD, Commercial Agent CLIA# [id number] Urine (Urine, Clean Catch) 06/01/2023 10:08 AM EST 06/01/2023 10:34 AM EST Preet Valenzuela LAB URINE ORDERABLES Final Resu lt Performing Organization Address [facility]/ZIP Co de Phone Number [facility] * (ABNORMAL) PTH, intact (06/01/2023 10:08 AM EST) PTH, Intact 124(H) (15-65) PG/ML [facility] Comment: Testing performed or reported by [facility], a Service of [address] [address] Stephen Buckley MD, Commercial Agent IA# [id number] Blood (Blood, Venous) 06/01/2023 10:08 AM EST 06/01/2023 10:33 AM EST Preet Valenzuela LAB BLOOD ORDERABLES Final Resu lt [facility] documented in this encounter Visit Diagnoses Diagnosis Hypercalcemia- Primary documented in this encounter Care Teams Coating Manager Relationship Specialty Start Date End Date Lennox Tsang MD [address] [facility] [address] [place], [place] PCP - General Internal Medicine 08/09/22 documented as of this encounter
--- OUTSIDE RECORDS SUMMARY | 2024-08-21 13:15 | XMS_ITS | Clinical Summary ---
Author Organization [facility] Address [address] [place] [address] Care Team Providers Care Franchise Field Consultant Name Role Phone Lennox Tsang MD Primary Care Provider [phone] Allergies No known active allergies Medications metoprolol [...] M, W, Th, Sat, Sun. Coumadin clinic [place] [facility]. managing INR Active atorvastatin (LIPITOR) 20 [...] Type Department Care Team Description 06/18/2024 Telephone [facility] [address] [phone] Hilda Mcgregor NP echocardiogram 06/01/2024 8:10 AM EST Office Visit [facility]ise [address] [phone] Hilda Mcgregor NP Shortness of breath (Primary [...] Description 09/11/2024 9:20 AM EDT Office Visit [facility] [address] [place] [address] Zac Lal MD [address] [place] [address] [address] [place] [address] Health Maintenance Due Date Last Done Comments [...] GEMUSE QTc 490 ms GEMUSE P Wave [place] 31 degrees GEMUSE R [place] 42 degrees GEMUSE T [place] -148 degrees GEMUSE ECG Interpretation Sinus rhythm with short MO Left bundle branch block Abnormal ECG No previous ECGs available Confirmed by Beba LAL JAMES ([id number]) on 06/01/2024 1:19:38 PM GEMUSE 06/01/2024 8:17 AM EST 06/01/2024 1:19 PM EST us Hilda Mcgregor NP ECG ORDERABLES Edited Result - Final GEMUSE from Last 3 Months Insurance [facility] Care Teams Franchise Field Consultant Relationship Specialty Start Date End Date Lennox Tsang MD PCP - General Internal Medicine 04/09/20
--- OUTSIDE RECORDS SUMMARY | 2024-08-21 13:15 | XMS_ITS | Continuity of Care Document ---
Author Organization [facility] Address [address] [place] [address]- Care Team Providers Care Adjunct Psychology Instructor Name Role Phone Lennox Tsang MD Primary Care Physician [phone] Encounter [facility] Date(s): 07/17/24 - 08/16/24 [facility] [address] [place] [address] [address] Encounter Type: Triage Allergies, Adverse [...] 10:23:00 AM EST, Route to Pharmacy Electronically, [facility], Partial fill upon patient [...] 0 Refills, Maintenance, 05/14/20 9:28:00 AM EST, [facility]acy #[id number], Partial fill upon patient request if [...] Maintenance, 08/31/23 2:13:00 PM EDT, ER Tablet, [facility], Partial fill upon patient request [...] 3:28:00 PM EST, Route to Pharmacy Electronically, [facility], Partial fill upon patient request [...] Maintenance, 04/03/20 3:12:00 PM EST, ER Capsule, [facility] 3, Partial fill upon patient request, [...] DAY OR DIRECTED BY PCP OFFICE ACCORDING TOIVONNER, # 90 tablet, 0 Refills, Maintenance, 07/12/24 [...] Position: Reference Physician Member Role: PCP Address: [address] [place] [address] [place] [address]- Telecom: [phone] Name: Preet Valenzuela DO Position: [facility] Renal MD Member Role: Lifetime Consulting Physician Address: [address] [facility] [address] [facility] [place] [address] Telecom: Name: Mishel Hogan RN Position: [facility] RN Member Role: Primary Care Nurse Name: Becka Masters RN Position: [facility] Onco RN Member Role: Primary Care Nurse Name: Naya Willson RN Position: [facility] RN Member Role: Primary Care Nurse Care Team Related Persons Name: RUDDY HAN Name: PITER HAN Insurance Providers Guarantor name: SARINA EMELY Health Plan Information #: 1 Payer: TESSY [facility] PPO Member Number: NA Policy Number: NA Group Number: [id number]
--- OUTSIDE RECORDS SUMMARY | 2024-08-21 13:15 | XMS_ITS | Encounter Summary ---
Author Organization [facility] Address [address] [place] [address] Phone Care Team Providers Care Autopsy Assistant Name Role Phone Lennox Tsang MD Primary Care Provider [phone] Reason for Visit * Reason Comments Med Refill Encounter Details Date Type Department Care Team (Late st Contact Info) Description 08/29/2023 Refill [facility] [address] [address] Preet Valenzuela DO [address] [facility] [place] [address] Hypokalemia; Heart failure with normal [...] Visit [facility] [address] [address] Preet Valenzuela DO [address] [facility] [place] [address] documented as of this encounter Visit Diagnoses Diagnosis Hypokalemia Heart failure with normal ejection fraction (HCC) documented in this encounter Care Teams Autopsy Assistant Relationship Specialty Start Date End Date Lennox Tsang MD [address] [place], [place] PCP - General Internal Medicine 08/09/22 documented as of this encounter
--- OUTSIDE RECORDS SUMMARY | 2024-08-21 13:15 | XMS_ITS | Patient Health Record ---
Author Organization [facility] Address [address] [place] [address] Care Team Providers Care General Internist And Physician Leader Name Role Phone Sharan DIAZ, Lennox Primary Care Provider Gurjit Goodman Unavailable [phone] Allergies No Known Allergies Reason For Referral [...] Problem Status W/U Status Risk Notes Problem 44128877 Rectal bleeding (K62.5) Active confirmed Problem 308149819 Encounter for screening for malignant neoplasm of colon (Z12.11) Active confirmed Problem Diverticular disease of colon (392133210) Diverticulosis of large intestine without perforation or abscess without bleeding (K57.30) Active confirmed Plan Of Treatment Pending Test Test Name Order Date Pathology 11/24/2022 Future Test Test Name Order Date COLONOSCOPY 10/01/2022 Insurance Providers Payer Name Payer Address Payer Phone Subscriber Number Group Number Insured Name Patient Relationship to Insured Coverage Start Date Coverage End Date [facility] [address] [place] [place] [place] [id number] SARINA HAN Self - patient is the insured Medical (General) History Medical History History ICD Code Denies [place],DM,CVA,Lung disease,renal dise ase 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 Lal in [place] Sleep apnea-CPAP Arrhythmia with PVC's Gout He describes that he has bee n told at [facility] that he is a difficult intubation Surgical History Surgery Date(Month/Year) Heart surgery for IHSS--his heart surgery in 2001 involved replacement of the aortic valve with a [employer] Fuad's valve 1984,1988,2001 Cervical spine fusion C1-C5 1988 Hernia repair--Bilateral inguinal and um bilical 2011,2013,2017, Tonsillectomy and adenoidectomy
== END 2024-08-21 11:09 | disposition home or self-care (01) ==
LOC: HO.ACS 11:00
PROVIDERS: PCP Internal Medicine; Visit Provider Internal Medicine Medical Oncology
DX: Z79.01 Long term (current) use of anticoagulants (principal)

== ENCOUNTER → 2024-08-21 11:00 | Outpatient (BNVA) | payer OTHER, SELFPAY | PROVIDERS: PCP Internal Medicine; Visit Provider Internal Medicine Medical Oncology | DX: Z95.2 Presence of prosthetic heart valve (principal); Z79.01 Long term (current) use of anticoagulants; Z51.81 Encounter for therapeutic drug level monitoring | CPT/HCPCS: 99211 ==

== ENCOUNTER 2024-10-12 07:47 | Outpatient (AMB) | payer OTHER, SELFPAY ==
--- OUTSIDE RECORDS SUMMARY | 2024-10-12 07:48 | XMS_ITS | Encounter Summary ---
Author Organization [facility], Address [address] [place] [address] Phone Care Team Providers Care Coordinator Skill Training Program Name Role Phone Lennox Tsang MD Primary Care Provider Encounter Details Date Type Department Care Team (Late st Contact Info) Description 08/09/2022 Documentation Only [facility] [address] [place] [address] Lennox Tsang MD [address] [place] [address] [address] [place] [address] Social History Tobacco Use Types Packs/Day Years Used Date Smoking Tobacco: Never Assessed Sex and Gender Information Value Date Recorded Sex Assigned at Not on file Legal Sex Male 10:58 AM EDT Gender Identity Not on file Sexual Orientation Not on file documented as of this encounter Plan of Treatment Upcoming Encounters Date Type Department Care Team (Late st Contact Info) Description 10/03/2025 3:00 PM EDT Office Visit [facility] [address] [place] [place] [address] Preet Valenzuela DO [address] [facility] [place] [address] documented as of this encounter Visit Diagnoses Not on filedocumented in this encounter Care Teams Coordinator Skill Training Program Relationship Specialty Start Date End Date Lennox Tsang MD [address] [place] [address] [address] [place] [address] PCP - General Internal Medicine 08/09/22 documented as of this encounter
[2024-10-12 08:06] LABS: ~PT, ~INR - Anti Coag Clinic 3.8 (0.9-1.1)
--- NOTE | 2024-10-12 08:14 | MHC.OFFVISCO ---
Intake Intake Visit Reasons: Anticoagulation Allergies No Known Allergies Allergy (Verified 10/12/24 08:10) Medication List - Last Reconciled 10/12/24 by Mishel Logan, RN albuterol sulfate 90 mcg/actuation 0 mcg inhalation allopurinol 300 mg PO DAILY atorvastatin 20 mg PO QPM colchicine 0.6 mg PO BID PRN metformin ER 1,000 mg PO BID metoprolol succinate ER 50 mg PO DAILY spironolactone 100 mg PO BID torsemide 40 mg PO DAILY [VITAMIN D 3 PO] warfarin 5 mg See Protocol PO DAILY Nursing Note INR 3.8? out of therapeutic range Medications and supplements reviewed Patient status: may have hyperparathyroid condition - to have work up and see surgeon Medications or supplements: no changes Diet: good Denies any signs and symptoms of bleeding or clotting or unusual bruising Bleeding, bruising, clotting discussed Nutritional guidance given: eat greens today Dose: keep same 7.6mg x 3 days/ 10mg x 4 days F/U INR Date : 2 weeks?? Patient verbalizing understanding of instructions given Pt wishes to cancel Home meter [employer] services. 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
== END 2024-10-12 08:18 | disposition home or self-care (01) ==
LOC: HO.ACS 07:47
PROVIDERS: PCP Internal Medicine; Visit Provider Internal Medicine Medical Oncology
DX: Z79.01 Long term (current) use of anticoagulants (principal)

== ENCOUNTER → 2024-10-12 07:47 | Outpatient (BNVA) | payer OTHER, SELFPAY | PROVIDERS: PCP Internal Medicine; Visit Provider Internal Medicine Medical Oncology | DX: Z95.2 Presence of prosthetic heart valve (principal); Z51.81 Encounter for therapeutic drug level monitoring; Z79.01 Long term (current) use of anticoagulants | CPT/HCPCS: 85610; 99211 ==

== ENCOUNTER 2024-10-25 08:02 | Outpatient (AMB) | payer OTHER, SELFPAY ==
--- OUTSIDE RECORDS SUMMARY | 2024-10-25 08:07 | XMS_ITS | Encounter Summary ---
Author Organization [facility], Address [address] [place] [address] Phone Care Team Providers Care Assistant Public Defender Name Role Phone Lennox Tsang MD Primary Care Provider Encounter Details Date Type Department Care Team (Late st Contact Info) Description 08/09/2022 Documentation Only [facility] [address] [place] [address] Lennox Tsang MD [address] [place] [address] [address] [place] [address] Social History Tobacco Use Types Packs/Day Years [...] Visit [facility] [address] [place] [address] Preet Valenzuela DO [address] [facility] [place] [address] documented as of this encounter Visit Diagnoses Not on filedocumented in this encounter Care Teams Assistant Public Defender Relationship Specialty Start Date End Date Lennox Tsang MD [address] [place] [address] [address] [place] [address] PCP - General Internal Medicine 08/09/22 documented as of this encounter
[2024-10-25 08:24] LABS: Prothrombin Time Whole Bld POC 45.1 sec (11.1-13.5); ~PT, ~INR - Anti Coag Clinic 3.8 (0.9-1.1)
--- NOTE | 2024-10-25 08:28 | MHC.OFFVISCO ---
Intake Intake Visit Reasons: Anticoagulation Allergies No Known Allergies Allergy (Verified 10/25/24 08:17) Medication List - Last Reconciled 10/25/24 by Mishel Logan RN albuterol sulfate 90 mcg/actuation 0 mcg inhalation allopurinol 300 mg PO DAILY atorvastatin 20 mg PO QPM colchicine 0.6 mg PO BID PRN metformin ER 1,000 mg PO BID metolazone mg PO metoprolol succinate ER 50 mg PO DAILY spironolactone 100 mg PO BID torsemide 40 mg PO DAILY [VITAMIN D 3 PO] warfarin 5 mg See Protocol PO DAILY Nursing Note No longer using the home meter wants to come to clinic INR: 3.8 STILL above therapeutic range, may be related to CHF, diet or stress Medications and supplements reviewed No changes in health, diet, medications, or supplements, Denies any signs and symptoms of bleeding or bruising or clotting. 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
== END 2024-10-25 08:33 | disposition home or self-care (01) ==
LOC: HO.ACS 08:02
PROVIDERS: PCP Internal Medicine; Visit Provider Internal Medicine Medical Oncology
DX: Z79.01 Long term (current) use of anticoagulants (principal)

== ENCOUNTER → 2024-10-25 08:02 | Outpatient (BNVA) | payer OTHER, SELFPAY | PROVIDERS: PCP Internal Medicine; Visit Provider Internal Medicine Medical Oncology | DX: Z79.01 Long term (current) use of anticoagulants (principal) | CPT/HCPCS: 85610; 99211 ==

== ENCOUNTER 2024-11-02 09:52 | Outpatient (REF) | payer OTHER, SELFPAY ==
--- OUTSIDE RECORDS SUMMARY | 2024-11-02 10:29 | XMS_ITS | Encounter Summary ---
Author Organization [facility], Address [address] [place] [address] Phone Care Team Providers Care Clinical Rehabilitation Liaison Name Role Phone Lennox Tsang MD Primary Care Provider Encounter Details Date Type Department Care Team (Late st Contact Info) Description 08/09/2022 Documentation Only [facility] [address] [place] [address] Lennox Tsang MD [address] [place] [address] [address] [place] [address] Social History Tobacco Use Types Packs/Day Years [...] Visit [facility] [address] [place] [address] Preet Valenzuela DO [address] [facility] [place] [address] documented as of this encounter Visit Diagnoses Not on filedocumented in this encounter Care Teams Clinical Rehabilitation Liaison Relationship Specialty Start Date End Date Lennox Tsang MD [address] [place] [address] [address] [place] [address] PCP - General Internal Medicine 08/09/22 documented as of this encounter
[2024-11-02 10:50] LABS: Alanine Aminotransferase 31 U/L (0-40); Albumin Level 4.9 g/dL (3.5-5.0); Alkaline Phosphatase 85 U/L (39-117); Aspartate Amino Transferase 45 U/L (5-37); Bilirubin Direct 0.2 mg/dL (0.0-0.5); Bilirubin Total 0.6 mg/dL (0.0-1.0); Cholesterol 151 mg/dL (<200); HDL Cholesterol 41 mg/dL (>40); LDL Cholesterol Calculated 75 mg/dL (<100); Total Protein 8.1 g/dL (6.5-8.0); Triglycerides 176 mg/dL (<150)
[2024-11-02 11:42] LABS: Reflex LDLD? No
== END 2024-11-02 09:53 | disposition home or self-care (01) ==
LOC: HO.LNP 09:52
PROVIDERS: Visit Provider Internal Medicine
DX: E78.00 Pure hypercholesterolemia, unspecified (principal)
CPT/HCPCS: 80061; 80076

== ENCOUNTER 2024-11-09 07:34 | Outpatient (AMB) | payer OTHER, SELFPAY ==
--- NOTE | 2024-11-09 07:50 | MHC.OFFVISCO ---
Intake Intake Visit Reasons: Anticoagulation Allergies No Known Allergies Allergy (Verified 11/09/24 07:35) Medication List - Last Reconciled 11/09/24 by Mishel Logan RN albuterol sulfate 90 mcg/actuation 0 mcg inhalation allopurinol 300 mg PO DAILY atorvastatin 20 mg PO QPM cephalexin 500 mg PO QID colchicine 0.6 mg PO BID PRN metformin ER 1,000 mg PO BID metolazone mg PO metoprolol succinate ER 50 mg PO DAILY spironolactone 100 mg PO BID torsemide 40 mg PO DAILY [VITAMIN D 3 PO] warfarin 5 mg See Protocol PO DAILY Nursing Note INR 2.5 IN therapeutic range- INR may trend up next week due to antbx Medications and supplements reviewed Patient status: just completed antbx for cellulitis Medications or supplements: no other changes Diet: good Denies any signs and symptoms of bleeding or clotting or unusual bruising Bleeding, bruising, clotting discussed Nutritional guidance given: will avoid greens few days Dose: keep same dose 7.5mg x 3 days/ 10mg x 4 days F/U INR Date: 11/20/24 ? Patient verbalizing understanding of instructions given. Anti-Coag Initial Assessment Social Hx Patient Tobacco Use Status: Never used Tobacco Coding Level of Care Code Est Patient Level 1 Diagnoses Current use of anticoagulant therapy Z79.01 Results AMB INR Fingerstick AMB INR Fingerstick 2.5 Last Edit by Mishel Logan RN on 11/09/24 07:44 manual entry Assessment & Plan Assessment & Plan (1) Current use of anticoagulant therapy: Code(s): Z79.01 - intermediate (current) use of anticoagulants Category: Medical
[2024-11-09 07:53] LABS: Prothrombin Time Whole Bld POC 29.5 sec (11.1-13.5); ~PT, ~INR - Anti Coag Clinic 2.5 (0.9-1.1)
== END 2024-11-09 07:53 | disposition home or self-care (01) ==
LOC: HO.ACS 07:34
PROVIDERS: PCP Internal Medicine; Visit Provider Internal Medicine Medical Oncology
DX: Z79.01 Long term (current) use of anticoagulants (principal)

== ENCOUNTER → 2024-11-09 07:34 | Outpatient (BNVA) | payer OTHER, SELFPAY | PROVIDERS: PCP Internal Medicine; Visit Provider Internal Medicine Medical Oncology | DX: Z95.2 Presence of prosthetic heart valve (principal); Z51.81 Encounter for therapeutic drug level monitoring; Z79.01 Long term (current) use of anticoagulants | CPT/HCPCS: 85610; 99211 ==

== ENCOUNTER 2024-11-20 09:12 | Outpatient (AMB) | payer OTHER, SELFPAY ==
--- OUTSIDE RECORDS SUMMARY | 2024-09-10 08:21 | XMS_ITS ---
Author Organization Lennox Tsang MD Address [address] [place] [address] [place] [phone] Care Team Providers Care Medical Writer Name Role Phone Lennox Tsang Primary Care Provider REASON FOR VISIT New Refill Request Medications Medication SIG (Take, Route, Fr equency, Duration) Notes Start Date End Date Status metFORMIN HCl 500 MG 2tablet with a meal Orally twice for 90 days Active Encounters Encounter Location Date Provider Diagnosis Lennox Tsang MD [address] [place] [address] [address] [place] [phone] 09/10/2024 Lennox Tsang Plan Of Treatment Medication Medication Name Sig Start Date Stop Date Notes metFORMIN HCl 500 MG 2tablet with a meal Orally twice for 90 days Next Appt Details Provider Name:Lennox white, 02/07/2025 02:00:00 PM, [address] [place] [address], [address], [phone], Provider Name:Lennox white, 04/26/2025 07:00:00 AM, [address] [place] [address], [address], [phone], Provider Name:Lennox white, 05/03/2025 02:30:00 PM, [address] [place] [address], [address], [phone], Progress Notes * Steve HAN:1975 (49 yo M)Acc No.[id number]:09/10/2024 Patient: Armen HAWKINS :1975 A ge:49 Y S ex:Male Address:[address] [place] [address], [place] [address], [place] [address] * Refills Refill metFORMIN HCl Tablet, 500 MG, Orally, 180, 2tablet with a meal, twice, 90 days, Refills=3 * true * Date: Generated for Gabriela velazquez/Sarah/Annabellaitting on: 0 11/20/2024 09:42 AM EDT
[2024-11-20 09:24] LABS: Prothrombin Time Whole Bld POC 49.3 sec (11.1-13.5); ~PT, ~INR - Anti Coag Clinic 4.1 (0.9-1.1)
--- NOTE | 2024-11-20 09:30 | MHC.OFFVISCO ---
Intake Intake Visit Reasons: Anticoagulation Allergies No Known Allergies Allergy (Verified 11/20/24 09:18) Medication List - Last Reconciled 11/20/24 by Kasandra Lockwood RN albuterol sulfate 90 mcg/actuation 0 mcg inhalation allopurinol 300 mg PO DAILY atorvastatin 20 mg PO QPM colchicine 0.6 mg PO BID PRN metformin ER 1,000 mg PO BID metolazone mg PO metoprolol succinate ER 50 mg PO DAILY spironolactone 100 mg PO BID torsemide 40 mg PO DAILY [VITAMIN D 3 PO] warfarin 5 mg See Protocol PO DAILY Nursing Note INR: 4.1 in therapeutic range of 2.5-3.5 Pt believes INR is up because he has been eating strawberries the past few days which can raise the INR. Medications and supplements reviewed No changes in health, diet, medications, or supplements, Denies any signs and symptoms of bleeding or bruising or clotting. Bleeding, bruising, clotting discussed Nutritional guidance given to have a serving of greens today Dose: decrease dose today to 5mg (7.5mg) and decrease tomorrow's dose to 7.5mg (10mg) then 10mg X 4 days and 7.5mg X 3 days F/U INR: 2 weeks Patient verbalizes understanding of instructions given Anti-Coag Initial Assessment Social Hx Patient Tobacco Use Status: Never used Tobacco Coding Level of Care Code Est Patient Level 1 Diagnoses Current use of anticoagulant therapy Z79.01 Results AMB INR Fingerstick AMB INR Fingerstick 4.1 Last Edit by Kasandra Lockwood RN on 11/20/24 09:25 interface delay Assessment & Plan Assessment & Plan (1) Current use of anticoagulant therapy: Code(s): Z79.01 - care home (current) use of anticoagulants Category: Medical
--- OUTSIDE RECORDS SUMMARY | 2024-11-20 09:42 | XMS_ITS | Encounter Summary ---
Author Organization [facility], Address [address] [place] [address] Phone Care Team Providers Care Hollow Tile Partition Erector Name Role Phone Lennox Tsang MD Primary Care Provider Encounter Details Date Type Department Care Team (Late st Contact Info) Description 08/09/2022 Documentation Only [facility] [address] [place] [address] Lennox Tsang MD [address] [place] [address] [address] [place] [address] Social History Tobacco Use Types Packs/Day Years [...] Visit [facility] [address] [place] [address] Preet Valenzuela DO [address] [facility] [place] [address] documented as of this encounter Visit Diagnoses Not on filedocumented in this encounter Care Teams Hollow Tile Partition Erector Relationship Specialty Start Date End Date Lennox Tsang MD [address] [place] [address] [address] [place] [address] PCP - General Internal Medicine 08/09/22 documented as of this encounter
--- OUTSIDE RECORDS SUMMARY | 2024-11-20 09:43 | XMS_ITS | Patient Health Record ---
Author Organization [facility] Address [address] [place] [address] Care Team Providers Care Steam Pipe Fitter Name Role Phone Sharan DIAZ, Lennox Primary Care Provider Gurjit Goodman Unavailable [phone] Allergies No Known Allergies Reason For Referral [...] Problem Status W/U Status Risk Notes Problem 47861689 Rectal bleeding (K62.5) Active confirmed Problem 512760778 Encounter for screening for malignant neoplasm of colon (Z12.11) Active confirmed Problem Diverticular disease of colon (526926309) Diverticulosis of large intestine without perforation or abscess without bleeding (K57.30) Active confirmed Plan Of Treatment Pending Test Test Name Order Date Pathology 11/24/2022 Future Test Test Name Order Date COLONOSCOPY 10/01/2022 Insurance Providers Payer Name Payer Address Payer Phone Subscriber Number Group Number Insured Name Patient Relationship to Insured Coverage Start Date Coverage End Date [facility] [address] [address] [place] [place] [phone] [id number] SARINA HAN Self - patient is the insured Medical (General) History Medical History History ICD Code Denies [place],DM,CVA,Lung disease,renal dise ase 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 Lal in [place] Sleep apnea-CPAP Arrhythmia with PVC's Gout He describes that he has bee n told at [facility] that he is a difficult intubation Surgical History Surgery Date(Month/Year) Heart surgery for IHSS--his heart surgery in 2001 involved replacement of the aortic valve with a [employer] Fu[employer]'s valve 1984,1988,2001 Cervical spine fusion C1-C5 1988 Hernia repair--Bilateral inguinal and um bilical 2011,2013,2017, Tonsillectomy and adenoidectomy
--- OUTSIDE RECORDS SUMMARY | 2024-11-20 09:43 | XMS_ITS | Data Portability ---
Author Organization [place] [facility], Allergy Address [address] [address] Care Team Providers Care Internal Communications Intern Name Role Phone KHADIJAH GODWIN Primary Care Provider Assessment Encounter Date Assessment Date Assessment LastModified by Organization Details LastModified Time 10/08/2024 10/08/2024 49yo male presents for evaluation of the ears. He reports chronic intermittent left-sided ear blockage. Cerumen impactions removed bilaterally. Otologic exam demonstrated narrow left auditory canal. TMs are intact and middle ear space spaces appear well aerated. Patient reports hearing returned to baseline after debridement. Recommend a couple drops of distilled white vinegar twice weekly to prevent cerumen buildup. Patient will return for formal audiometric testing. Patient also evaluated by Dr. Winston. [email or web address] Not available 10/08/2024 12:06:26 10/23/2024 10/23/2024 49-year-old male with longstanding left-sided sensorineural hearing loss and ETD presents for hearing evaluation. He used to wear left-sided amplification. Left partial cerumen impaction removed today. Patient TMs suction. Middle ear spaces are well aerated, confirmed with tympanometry. Audiometric testing demonstrated right ear with normal through 3K hertz sloping to mild sensorineural hearing loss and left ear with mild rising to normal sloping to moderate sensorineural hearing loss. Word recognition is excellent bilaterally. Patient is medically cleared for left sided amplification. Given longstanding asymmetrical hearing and absence of other otologic symptoms, patient declined an MRI of the IACs today. Recommend follow up in 6 months for routine cerumen debridement. [email or web address] Not available 10/23/2024 15:20:15 11/15/2024 11/15/2024 Discussed various types, models and levels of technology. Recommended Widex Allure 440 XU R $2591. Patient is not interested in pursing due to limited finances. F/U PRN. [email or web address] Not available 11/15/2024 13:19:16 Plan of Treatment Reminders Order Date Submit Date Provider Last Modified By Organization Details Last Modified Time Details Appointments Establish ed 15 2024 01:00P M WENDY PATEL PA-C Not available Not available Not available Lab None recorded. Referral None recorded. Procedures None recorded. Surgeries None recorded. Imaging None recorded. Medication Orders None recorded. Patient TargetsNo targets recorded. Patient InstructionsNo instructions recorded. Reason for Referral None Reported. Results Created Date Observation Date Name Description Value Unit Range Abnormal Flag Note LastModifiedBy Organization Detail LastModifiedTime 10/24/19 25 audio gram No observ ation record ed. BARCODE Not Available 2024 15:37:00 Result Notes None recorded. Problems Name Problem SNOMED Code Status Onset Date Resolution Date Notes Provider Name and Address Organization Details Recorded Time Impacted cerumen of bilateral ears 6488990655776 108 Active 2024 WENDY PATEL PA-C [address] [address], [place], [address], [facility] - [facility] 5 12:06:34 Sensorineur al hearing loss of bilateral ears 235970214 Active 2024 JOHNATHON POZO AUD [address], [address], [facility] 5 13:25:21 Impacted cerumen in left ear 5043245878899 101 Active 2024 WENDY PATEL PA-C [address] [address], [place], [address], [facility] - [facility] 15:20:29 Problem Notes None recorded. Procedures Surgical History Date Name Laterality Status Provider Name and Address Organization Details Recorded Time Comp Audio with Tymps - 95002 & 93698 completed JOHNATHON POZO AUD 100 [facility],[address] [place], [address], [place] - [facility] 10/23/2024 13:25:16 5 Cerumen removal without microscope left completed WENDY PATEL PA-C [address], [place], [address], [place] - [facility] 10/23/2024 15:21:03 5 Cerumen removal with microscope bilateral completed WENDY PATEL PA-C 100 [facility] [place],[address], [place], [address], [facility] - [facility] 10/08/2024 10:40:11 Imaging Results None recorded. Procedure Notes None recorded. Medical Equipment None Reported. Medications Name Sig Start Date Stop Date Status Note LastModified by Organization Details LastModified Time metolazone 2.5 mg tablet active Not Available Not Available Not Available metformin 500 mg tablet active Not Available Not Available Not Available atorvastatin 20 mg tablet active Not Available Not Available Not Available torsemide 20 mg tablet active Not Available Not Available No t Available benzonatate 200 mg capsule TAKE 1 CAPSULE BY MOUTH THREE TIMES A DAY FOR 7 DAYS NEEDED FOR COUGH 10/04 completed Not Available Not Available Not Available metoprolol succinate ER 50 mg tablet,exten ded release 24 hr active Not Available Not Available Not Available prednisone 20 mg tablet TAKE 2 TABLETS BY MOUTH EVERY DAY FOR 5 DAYS 10/04 completed Not Available Not Available Not Available spironolacto ne 100 mg tablet active Not Available Not Available Not Available warfarin 5 mg tablet active Not Available Not Available No t Available allopurinol 300 mg tablet active Not Available Not Available Not Available albuterol sulfate HFA 90 mcg/actuatio n aerosol inhaler active Not Available Not Available Not Available colchicine 0.6 mg tablet active Not Available Not Available Not Available metformin ER 500 mg tablet,exten ded release 24 hr active Not Available Not Available Not Available Vitals Date Recorded Body weight Body mass index (BMI) Body height Provider Name and Address Organization Details Last Updated DateTime 10/08/2024 46278.77 g 36.7 kg/m2 162.56 cm Kim Galo [place] - [facility] 10/08/2024 10:13:37 Date Recorded Body height Body mass index (BMI) Body weight Provider Name and Address Organization Details Last Updated DateTime 10/23/2024 162.56 cm 36.9 kg/m2 37357.36 g Agustina Eric [place] - [facility] 10/23/2024 13:45:09 Social History Question Answer Notes LastModified by Organizat ion Details LastModified Time Tobacco Smoking Status Never Smoker Kim boyle [facility] 10/08/2024 10:14:[address] Do You Use? None [email or web address] Information not available 10/08/2024 Do You Have Any Pets? No [email or web address] Information not available 10/08/2024 Are You Passively Exposed To Smoke? No [email or web address] Information not available 10/08/2024 Are There Any Smokers In Your House? No [email or web address] Information not available 10/08/2024 Sex: Unknown Functional Status Question Answer Note LastModified by Organization Details LastModified Time Do you use any illicit or recreational drugs? No [email or web address] Information not available 10/08/2024 Do you or have you ever used any other forms of tobacco or nicotine? No [email or web address] Information not available 10/08/2024 What is your level of alcohol consumption? 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 [email or web address] Infor mation not available 10/08/2024 Mental Status None recorded. Family History Nothing Reported. Medical History Condition Response Tonsil Infections N Emphysema N Glaucoma N Depression N COPD N Nasal or Sinus Problems N Anesthesia Complications N Arthritis N Hearing Loss Y Cancer N Stroke N High Cholesterol Y Liver Disease N Headaches N Fibromyalgia N Speech Delay N Kidney Disease N Allergies/Hayfever N Heart Problems Y Anxiety N Migraines N Thyroid Problems Y Developmental Delay N Anemia N Immune System Disorder N Heart Attack ([place]) N Other Skin Condition N Diabetes Y Rhinitis N Bleeding Disorder N Food Allergy N Hyperlipidemia Y Dementia N Nasal polyps N Asthma N Sleep Disorder Y GERD/Reflux N Hypertension N Past Encounters Encounter ID Performer Location Encounter Start Date Encounter Closed Date Diagnosis/Indication Diagnosis SNOMED-CT Code Diagnosis ICD10 Code Diagnosis Note [id number] WENDY PATEL PA-C [facility] [address] [place] [address] 10/08/2024 09:55:54 10/08/2024 10:46:57 Impacted cerumen of bilateral ears 0207059762 376153 H61.23 Hearing lo ss of left ear 221368226 H91.92 [id number] WENDY PATEL PA-C [facility] [address] [place] [address] 10/23/2024 13:00:43 10/23/2024 14:37:47 Sensorineural hearing loss of bilateral ears 876404161 H90.3 Audiologic al evaluation results: 10/23/2024 Right ear: Normal through 3 kHz sloping to a mild sensorineu ral hearing loss with excellent word recognitio n. Left ear: Mild rising to normal sloping to moderate sensorineu ral hearing loss with excellent word recognitio n. Tympanomet ry: Right Ear:Type Ad Left Ear:Type A Impacted c erumen in left ear 2793231543 056009 H61.22 [id number] STEVE CARRILLO [facility] [place] 100 [facility] [address] [place] [address] 11/15/2024 12:36:28 11/16/2024 13:07:37 Sensorineural hearing loss of bilateral ears 329967832 H90.3 Health Concerns Section Related Observation LastModified by Organization Detai ls LastModified Time None Recorded Concern Status LastModified by Organization Details LastModified Time None Recorded Advance Directives Directive None Recorded Payers Insurance Date Sequence Insurance Name Policy Number Policy Reynaga Covered Member ID Reynaga Member ID Guarantor Name 11/12/[address] [place] [address] [id number] Armen Olson [id number] Armen Olson Notes Date Note Type Note Provider Name and Address Organization Details Recorded Time 10/08/2024 text/html 49yo male presen ts for evaluation of the ears. He reports chronic intermittent left ear blockage. He endorses longstanding history of eustachian tube dysfunction and left neurosensory hearing loss. He was unable to tolerate hearing aids in the past. Most recent audiometric testing was 20+ years ago. Denies ear pain, drainage, or tinnitus. Endorses occasional Qtip use. No history of loud noise exposure or familial hearing loss. Past medical history includes heart failure, diabetes mellitus, cervical fusion, and SINA. He works at [employer]. BAYRON WINSTON MD 100 [facility],[address], [address], [facility] 10/08/2024 12:19:23 10/23/2024 text/html 49-year-old male with longstanding left-sided sensorineural hearing loss and ETD presents for hearing evaluation. He used to wear left-sided amplification, but could not tolerate. Most recent audiogram was 20 years ago. Denies tinnitus or vertigo. Denies ear pain or drainage. Denies recurrent ear infections or prior ear surgeries. No history of loud noise exposure. Occasional Q tip use. He works at [employer]. MAGALIS GAONA MD 100 [facility],[address], [address], [facility] 10/23/2024 16:09:53 11/15/2024 text/html Patient has a kn own asymmetrical SNHL >AD. He was recently cleared for amplification for his left ear. He has tried hearing aids in the past without much success. He feels he does fine without any amplification. JOHNATHON POZO, STEVE 100 [facility],[address], [address], [facility] 11/15/2024 13:19:38
--- OUTSIDE RECORDS SUMMARY | 2024-11-20 09:43 | XMS_ITS | Patient Health Record ---
Author Organization [facility] Address [address] [facility] [address] [place] [address] Care Team Providers Care Manager Business Operations Name Role Phone Lennox Tsang Primary Care [...] Problem Status W/U Status Risk Notes Problem Arterial atherosclerosis (I70.8) Active confirmed Plan Of Treatment Pending Test Test Name Order Date EMIL 04/19/2022 Ultrasound : Artery Doppler Low Ext Bila t 04/19/2022 X ray : Foot, left 3v 04/19/2022 Insurance Providers Payer Name Payer Address Payer Phone Subscriber Number Group Number Insured Name Patient Relationship to Insured Coverage Start Date Coverage End Date [facility] [address] [facility] [phone] [id number] Armen Olson Self - patient is the [...]
--- OUTSIDE RECORDS SUMMARY | 2024-11-20 09:43 | XMS_ITS | Clinical Summary ---
Author Organization Patient Business Ser vice [facility] Address [address] [place] [address] Care Team Providers Care Woodworking Machine Setter Name Role Phone Unavailable Primary Care Provider Unavailabl e Allergies No known active allergies Medications metoprolol succinate (TOPROL-XL) 50 mg 24 hr tablet Take 1 Tablet by mouth daily. 1 tab in the morning Active torsemide (DEMADEX) 20 mg tablet Take 2 Tablets by mouth daily. Active spironolactone (ALDACTONE) 100 mg tablet [...] M, W, Th, Sat, Sun. Coumadin clinic [facility]. managing INR Active atorvastatin (LIPITOR) 20 mg tablet Take 1 tablet (20 mg total) by mouth at bedtime. Active metOLazone (ZAROXOLYN) 2.5 mg tablet TAKE 1 TABLET BY MOUTH THREE TIMES A WEEK. 36 tablet 2 Active Additional Information Patient taking differently:2.5 mg oral2 times weekly, Reported on 09/11/2024 cholecalciferol (VITAMIN D-3) 25 mcg (1,000 unit) tablet Take 1 tablet (1,000 Units total) by mouth 1 (one) time each day. Active Active Problems Problem Noted Date Diagnosed Date H/O aortic valve replacement 09/11/2024 H/O aortic valve replacement 06/01/2024 Assessment & Plan (09/11/2024 1:03 PM EDT): Patient mechanical aortic valve. Well-seated possibly small amount of valve mismatch no aortic insufficiency. Patient understands need to continue endocarditis prophylaxis. Anticoagulation continued with home monitoring Assessment & Plan (06/01/2024 9:36 AM EST): Patient has a history of subaortic stenosis s/p mechanical aortic valve replacement. Continue on anticoagulation with Coumadin close INR monitoring. The patient has been educated on his need for endocarditis prophylaxis. Tachycardia 05/18/2023 Electrolyte abnormality 05/18/2023 Chronic heart failure with p reserved ejection fraction (HFpEF) (CMS/HCC V24, CMS/HCC V28) 05/17/2023 Assessment & Plan (06/01/2024 9:36 AM [...] Patient has upcoming echocardiogram scheduled. CHF exacerbation (CMS/HCC V24, CMS/HCC V28) 05/25 Assessment & Plan (09/11/2024 1:03 PM EDT): History diastolic dysfunction, HFpEF volume fairly well-managed at the present time with as needed use of Zaroxolyn about twice a week to keep volume down. Patient's weight is down his breathing is better he is trying to exercise without limitations he said no chest pain. Transfer text Palpitations 06/22/2022 Diastolic heart failure (CMS/HCC V24, CMS/HCC V2 8) 01/02/2021 Subaortic stenosis 06/02/2020 PVC (premature ventricular contraction) 06/02/19 21 Encounters Date Type Department Care Team Description 09/11/2024 9:20 AM EDT Office Visit [facility] [address] [place] [address] Zac Lal MD Acute on chronic diastolic congestive heart failure (CMS/HCC V24, CMS/HCC V28) (Primary Dx); H/O aortic valve replacement from Last 3 [...] Sign Reading Time Taken Comments Blood Pressure 122/70 09/11/2024 9:47 AM EDT Pulse 95 09/11/2024 9:47 AM EDT Temperature - - Respiratory Rate - - Oxygen Saturation 100% 09/11/2024 9:47 AM EDT Inhaled Oxygen Concentration - - Weight 98.9 kg (218 lb) 09/11/2024 9:47 AM EDT Height 162.6 cm (5' 4 ) 09/11/2024 9:47 AM EDT Body Mass Index 37.42 09/11/2024 9:47 AM EDT Plan of Treatment Upcoming Encounters Date Type Department Care Team (Late st Contact Info) Description 03/20/2025 7:50 AM EDT Office Visit [facility] [address] [place] [address] Zac Lal MD [address] [place] [address] DR[address] [place] [address] Health Maintenance Due Date Last Done Comments [...] age to complete this topic Meningococcal B Vaccine Aged Out No l onger eligible based on patient's age to complete this topic RSV Immunization Patients Under 20 months Aged Out No longer eligible based on patient's age to complete this topic Varicella Vaccines Aged Out No longer eligible based on patient's age to complete this topic Insurance [facility] [address] [place] [address]
== END 2024-11-20 09:33 | disposition home or self-care (01) ==
LOC: HO.ACS 09:12
PROVIDERS: PCP Internal Medicine; Visit Provider Internal Medicine Medical Oncology
DX: Z79.01 Long term (current) use of anticoagulants (principal)

== ENCOUNTER → 2024-11-20 09:12 | Outpatient (BNVA) | payer OTHER, SELFPAY | PROVIDERS: PCP Internal Medicine; Visit Provider Internal Medicine Medical Oncology | DX: Z79.01 Long term (current) use of anticoagulants (principal) | CPT/HCPCS: 85610; 99211 ==

== ENCOUNTER 2024-12-04 07:41 | Outpatient (AMB) | payer OTHER, SELFPAY ==
--- OUTSIDE RECORDS SUMMARY | 2024-09-15 16:15 | XMS_ITS ---
Author Organization Lennox Tsang MD Address [address] [place] [address] [place] [phone] Care Team Providers Care Packaging Tech Name Role Phone Lennox Tsang Primary Care Provider REASON FOR VISIT Metformin Refill Medications Medication SIG (Take, Route, Fr equency, Duration) Notes Start Date End Date Status metFORMIN HCl 500 MG 2tablet with a meal Orally twice a day for 90 days Active Encounters Encounter Location Date Provider Diagnosis Lennox Tsang MD [address] [place] [address] [place] [phone] 09/15/2024 Lennox Tsang Plan Of Treatment Medication Medication Name Sig Start Date Stop Date Notes metFORMIN HCl 500 MG 2tablet with a meal Orally twice a day for 90 days Next Appt Details Provider Name:Lennox white, 02/07/2025 02:00:00 PM, [address] [place] [address], [address], [phone], Provider Name:Lennox white, 04/26/2025 07:00:00 AM, [address] [place] [address], [address], [phone], Provider Name:Lennox white, 05/03/2025 02:30:00 PM, [address] [place] [address], [address], [phone], Progress Notes * Steve HAN:1975 (49 yo M)Acc No.[id number]:09/15/2024 Patient: Armen HAWKINS :1975 A ge:49 Y S ex:Male Address:[address] [place] [address], [address] [address] * Refills Refill metFORMIN HCl Tablet, 500 MG, Orally, 360 Tablet, 2tablet with a meal, twice a day, 90 days, Refills=3 * true * Date: Generated for Gabriela velazquez/Sarah/Annabellaitting on: 0 12/04/2024 07:43 AM EDT
--- OUTSIDE RECORDS SUMMARY | 2024-11-30 23:59 | XMS_ITS | Continuity of Care Document ---
Author Organization [facility] Address [address] [place] [address]- Care Team Providers Care Director Of Manufacturing Operations Name Role Phone Lennox Tsang MD Primary Care Physician [phone] Encounter [facility] [place] [place] Date(s): 10/31/24 - 11/30/24 [facility] [address] [place] [address]- Attending Physician: Tarun [email or web address] Admitting Physician: Admtr ArHui Referring Physician: Admtr Ar8 Encounter Type: Triage Allergies, Adverse Reactions, Alerts [...] 10:23:00 AM EST, Route to Pharmacy Electronically, [facility], Partial fill upon patient request [...] Quantity: 30.0 Unit: tablet Repeat number: 1 Colace Clear = 50 mg, By Mouth, 2 times a day, 0 Refills, Maintenance, 06/29/23 10:46:00 AM EST, Partial fill uponpatient request if the prescription is for a schedule II opioid drug. Start Date: 06/29/23 Status: Ordered Repeat number: 1 colchicine 0.6 mg oral capsule See Instructions, 2 capsules by mouth, then 1 capsule by mouth 1 hour later, # 3 capsule, 0 Refills, Maintenance, 05/14/20 9:28:00 AM EST, [id number], Partial fill upon patient request [...] Maintenance, 08/31/23 2:13:00 PM EDT, ER Tablet, [facility], Partial fill upon patient request if [...] 3:28:00 PM EST, Route to Pharmacy Electronically, [facility], Partial fill upon patient request [...] Maintenance, 04/03/20 3:12:00 PM EST, ER Capsule, [facility], Partial fill upon patient request, [...] DAY OR DIRECTED BY PCP OFFICE ACCORDING TOINR, # 90 tablet, 0 Refills, Maintenance, 07/12/24 [...] Position: Reference Physician Member Role: PCP Address: [address] [place] [address] Lennox Tsang MD [place], [place] [address] Telecom: [phone] Name: Preet Valenzuela DO Position: [facility] Renal MD Member Role: Lifetime Consulting Physician Address: [address] [place], [place] [address] [place], [place] [address] Telecom: Name: Mishel Hogan RN Position: [facility] RN Member Role: Primary Care Nurse Name: Becka Masters RN Position: [facility] Onco RN Member Role: Primary Care Nurse Name: Naya Willson RN Position: [facility] RN Member Role: Primary Care Nurse Care Team Related Persons Name: RUDDY HAN Name: PITER HAN Insurance Providers Guarantor name: SARINA HAN Health Plan Information #: 1 Payer: TESS[facility] PPO Payer Identifier: EDMUND Member Number: [id number] Group Number: NA Subscriber Identifier: [id number] Relationship to Subscriber: self Coverage Type: Other Private Insurance Coverage Verification Date: NA Telecom: Address:
--- OUTSIDE RECORDS SUMMARY | 2024-12-04 07:43 | XMS_ITS | Patient Health Record ---
Author Organization [facility] Address [address] [facility] [address] [place] [address] Care Team Providers Care Scrip Clerk Name Role Phone Lennox Tsang Primary Care [...] Insured Coverage Start Date Coverage End Date [facility] [address] [facility] [id number] Armen Olson Self - patient is the [...]
--- OUTSIDE RECORDS SUMMARY | 2024-12-04 07:43 | XMS_ITS | Clinical Summary ---
Author Organization Patient Business Ser vice [facility] Address [address] [place] [address] Care Team Providers Care Shagger Name Role Phone Unavailable Primary Care Provider [...] M, W, Th, Sat, Sun. Coumadin clinic [facility]. managing INR Active atorvastatin (LIPITOR) 20 [...] Description 09/11/2024 9:20 AM EDT Office Visit [facility] [address] [place] [address] Zac Lal MD Acute on [...] Description 03/20/2025 7:50 AM EDT Office Visit [facility] [address] [place] [phone] Zac Lal MD [address] [place] [address] DRIVE [address] [place] [address] Health Maintenance Due Date Last Done Comments DTaP,Tdap,and Td Vaccines (1 - Tdap) 01/29/1995 Hepatitis B Vaccines (1 of 3 - 19+ 3-dose series) 01/29/1995 Cholesterol Screening (Lipid Panel) 01/22/2021 Colorectal Cancer Screening: Colonoscopy 01/22/2021 Depression Screening 01/22/2021 HIV Screening 01/22/2021 Hepatitis C Screening 01/22/2021 Social Influencers of Health Screening 01/22/2021 Pneumococcal Vaccine: Pediatrics (0 to 5 Years) and At-Risk Patients (6 to 49 Years) (2 of 2 - PCV) 04/03/2021 04/03/2020, 07/13/2016 Hypertension/CHF/CAD Annual BMP Blood Test 06/21/2023 Influenza Vaccine (#1) 2025 , 03/02/2023, 03/11/2022, Additional history exists COVID-19 Vaccine Completed [...] patient's age to complete this topic Insurance [facility]
--- OUTSIDE RECORDS SUMMARY | 2024-12-04 07:43 | XMS_ITS | Encounter Summary ---
Author Organization [facility] Address [address] [place] [address] Phone Care Team Providers Care Outcomes Specialist Name Role Phone Lennox Tsang MD Primary Care Provider Encounter Details Date Type Department Care Team (Late st Contact Info) Description 08/09/2022 Documentation Only [facility] [address] [place] [address] Lennox Tsang MD [address] [place] [address] [address] [place] [address] Social History Tobacco Use Types Packs/Day Years [...] Visit [facility] [address] [place] [address] Preet Valenzuela DO [address] [place] [place] [address] documented as of this encounter Visit Diagnoses Not on filedocumented in this encounter Care Teams Outcomes Specialist Relationship Specialty Start Date End Date Lennox Tsang MD [address] [place] [address] [address] [place] [address] PCP - General Internal Medicine 08/09/22 documented as of this encounter
--- OUTSIDE RECORDS SUMMARY | 2024-12-04 07:44 | XMS_ITS | Patient Health Record ---
Author Organization [facility] Address [address] [place] [address] Care Team Providers Care Industrial Green Systems Designer Name Role Phone Sharan DIAZ, Lennox Primary Care Provider Gurjit Goodman Unavailable [phone] Allergies No Known Allergies Reason For Referral [...] Problem Status W/U Status Risk Notes Problem 10812413 Rectal bleeding (K62.5) Active confirmed Problem 243302035 Encounter for screening for malignant neoplasm of colon (Z12.11) Active confirmed Problem Diverticular disease of colon (752188476) Diverticulosis of large intestine without perforation or abscess without bleeding (K57.30) Active confirmed Plan Of Treatment Pending Test Test Name Order Date Pathology 11/24/2022 Future Test Test Name Order Date COLONOSCOPY 10/01/2022 Insurance Providers Payer Name Payer Address Payer Phone Subscriber Number Group Number Insured Name Patient Relationship to Insured Coverage Start Date Coverage End Date [facility] [address] [place] [phone] [id number] SARINA HAN Self - patient is the insured Medical (General) History Medical History History ICD Code Denies SC,DM,CVA,Lung disease,renal dise ase 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 Lal in [place] Sleep apnea-CPAP Arrhythmia with PVC's Gout He describes that he has bee n told at [facility] that he is a difficult intubation Surgical History Surgery Date(Month/Year) Heart surgery for IHSS--his heart surgery in 2001 involved replacement of the aortic valve with a [facility] Fuad's valve 1984,1988,2001 Cervical spine fusion C1-C5 1988 Hernia repair--Bilateral inguinal and um bilical 2011,2013,2017, Tonsillectomy and adenoidectomy
--- OUTSIDE RECORDS SUMMARY | 2024-12-04 07:44 | XMS_ITS | Data Portability ---
Author Organization [place] [facility] Address [address] [facility] [address] [place] [address] Care Team Providers Care Cash Register Balancer Name Role Phone KHADIJAH GODWIN Primary Care [...] pursing due to limited finances. F/U PRN. [email or web address] Not available 11/15/2024 13:19:16 Plan of Treatment [...] Recorded Time Impacted cerumen of bilateral ears 5418916060764 108 Active 2024 WENDY PATEL PA-C [address] [address], [place], [address], [facility] - [facility] 5 12:06:34 Sensorineur al hearing loss of bilateral ears 912720438 Active 2024 JOHNATHON POZO AUD [address], [address], [facility] 5 13:25:21 Impacted cerumen in left ear 7447450955402 101 Active 2024 WENDY PATEL PA-C [address] [address], [place], [address], [facility] - [facility] 15:20:29 Problem Notes None recorded. Procedures Surgical History Date Name Laterality Status Provider Name and Address Organization Details Recorded Time Comp Audio with Tymps - 11114 & 38170 completed JOHNATHON POZO AUD [address] [facility],[address] [place], [address], [place] - [facility] 10/23/2024 13:25:16 5 Cerumen removal without microscope left completed WENDY PATEL PA-C [address], [place], [address], [place] - [facility] 10/23/2024 15:21:03 5 Cerumen removal with microscope bilateral completed WENDY PATEL PA-C [address] [facility] [address], [place], [address], [facility] - [facility] 10/08/2024 10:40:11 Imaging Results None recorded. [...] Address Organization Details Last Updated DateTime 10/08/2024 94274.77 g 36.7 kg/m2 162.56 cm Kim Galo [place] - [facility] 10/08/2024 10:13:37 Date Recorded Body height Body mass index (BMI) Body weight Provider Name and Address Organization Details Last Updated DateTime 10/23/2024 162.56 cm 36.9 kg/m2 61618.36 g Agustina Eric [place] [facility] 10/23/2024 13:45:09 Social History Question Answer Notes LastModified by Organizat ion Details LastModified Time Tobacco Smoking Status Never Smoker Kim boyle [facility] 10/08/2024 10:14:11 What Type Of Healthcare Representative Do You Use? None Information not available 10/08/2024 Do You Have Any Pets? No [email or web address] Information not available 10/08/2024 Are You Passively Exposed To Smoke? No [email or web address] Information not available 10/08/2024 Are There Any Smokers In Your House? No [email or web address] Information not available 10/08/2024 Sex: Unknown Functional Status Question Answer Note LastModified by Organization Details LastModified Time Do you use any illicit or recreational drugs? No Information not available 10/08/2024 Do you or have you ever used any other forms of tobacco or nicotine? No Information not available 10/08/2024 What is your level of alcohol consumption? 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 noExposureToExcessiveNoise Infor mation not available 10/08/2024 Mental Status None recorded. Family History Nothing Reported. Medical History Condition Response Allergies/Hayfever N Heart Problems Y Anxiety N Tonsil Infections N Emphysema N Migraines N Thyroid Problems Y Depression N COPD N Developmental Delay N Glaucoma N Nasal or Sinus Problems N Anemia N Immune System Disorder N Anesthesia Complications N Heart Attack (PR) N Other Skin Condition N Diabetes Y Rhinitis N Bleeding Disorder N Food Allergy N Hearing Loss Y Arthritis N Hyperlipidemia Y Cancer N Stroke N Dementia N Nasal polyps N Asthma N Sleep Disorder Y High Cholesterol Y GERD/Reflux N Liver Disease N Headaches N Fibromyalgia N Hypertension N Speech Delay N Kidney Disease N Past Encounters Encounter ID Performer Location Encounter Start Date Encounter Closed Date Diagnosis/Indication Diagnosis SNOMED-CT Code Diagnosis ICD10 Code Diagnosis Note [id number] WENDY PATEL PA-C [facility] [address] [place] [address] 10/08/2024 09:55:54 10/08/2024 10:46:57 Impacted cerumen of bilateral ears [id number] 328056 H61.23 Hearing lo ss of left ear 747581374 H91.92 [id number] WENDY PATEL PA-C [facility] [address] [place] [address] 10/23/2024 13:00:43 10/23/2024 14:37:47 Sensorineural hearing loss of bilateral ears 171128486 H90.3 Audiologic al evaluation results: 10/23/2024 Right ear: Normal through 3 kHz sloping to a mild sensorineu ral hearing loss with excellent word recognitio n. Left ear: Mild rising to normal sloping to moderate sensorineu ral hearing loss with excellent word recognitio n. Tympanomet ry: Right Ear:Type Ad Left Ear:Type A Impacted c erumen in left ear 7593427587 961977 H61.22 [id number] STEVE CARRILLO HERNANDE[facility] [place] [address] [facility] [address] [place] [address] 11/15/2024 12:36:28 11/16/2024 13:07:37 Sensorineural hearing loss of bilateral ears 602220455 H90.3 Health Concerns Section Related Observation LastModified by Organization Detai ls LastModified Time None Recorded Concern Status LastModified by Organization Details LastModified Time None Recorded Advance Directives Directive None Recorded Payers Insurance Date Sequence Insurance Name Policy Number Policy Reynaga Covered Member ID Reynaga Member ID Guarantor Name 11/12/[address] [place] [address] [id number] Armen Olson [id number] Armen Olson Notes Date Note Type Note [...] cervical fusion, and SINA. He works at [employer]. BAYRON WINSTON MD [address] [facility],[address], [address], [facility] 10/08/2024 12:19:23 10/23/2024 text/html 49-year-old male [...] Occasional Q tip use. He works at [employer]. MAGALIS GAONA MD [address] 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 He was recently cleared for amplification for his left ear. He has tried hearing aids in the past without much success. He feels he does fine without any amplification. JOHNATHON POZO, STEVE [address] [facility],[address], [address], [facility] 11/15/2024 13:19:38
[2024-12-04 07:51] LABS: Prothrombin Time Whole Bld POC 58.7 sec (11.1-13.5); ~PT, ~INR - Anti Coag Clinic 4.9 (0.9-1.1)
--- NOTE | 2024-12-04 07:59 | MHC.OFFVISCO ---
Intake Intake Visit Reasons: Anticoagulation Allergies No Known Allergies Allergy (Verified 12/04/24 07:41) Medication List - Last Reconciled 12/04/24 by Mishel Logan RN albuterol sulfate 90 mcg/actuation 0 mcg inhalation allopurinol 300 mg PO DAILY atorvastatin 20 mg PO QPM colchicine 0.6 mg PO BID PRN metformin ER 1,000 mg PO BID metolazone mg PO metoprolol succinate ER 50 mg PO DAILY spironolactone 100 mg PO BID torsemide 40 mg PO DAILY [VITAMIN D 3 PO] warfarin 5 mg See Protocol PO DAILY Nursing Note INR 4.9? out of therapeutic range Medications and supplements reviewed Patient status: well for him, slight cough possible fluid he said, he is on diuretics, may have had less greens and more reds, plus stress with work- changing place of employement Medications or supplements: no changes Diet: good Denies any signs and symptoms of bleeding or clotting or unusual bruising Bleeding, bruising, clotting discussed Nutritional guidance given: weekly greens Dose: hold today then decrease weekly dose 7.5mg x 4 days/ 10mg mwf F/U INR Date: wanted to see pt sooner but requested 12/18/24 due to vacation Pt is aware his blood his thin today and measures to take if bleeding or bruising ?? Patient verbalizing understanding of instructions given. Anti-Coag Initial Assessment Social Hx Patient Tobacco Use Status: Never used Tobacco Coding Level of Care Code Est Patient Level 1 Diagnoses Current use of anticoagulant therapy Z79.01 Results AMB INR Fingerstick AMB INR Fingerstick 4.9 Last Edit by Mishel Logan RN on 12/04/24 07:52 Assessment & Plan Assessment & Plan (1) Current use of anticoagulant therapy: Code(s): Z79.01 - alf (current) use of anticoagulants Category: Medical
== END 2024-12-04 08:07 | disposition home or self-care (01) ==
LOC: HO.ACS 07:41
PROVIDERS: PCP Internal Medicine; Visit Provider Internal Medicine Medical Oncology
DX: Z79.01 Long term (current) use of anticoagulants (principal)

== ENCOUNTER → 2024-12-04 07:41 | Outpatient (BNVA) | payer OTHER, SELFPAY | PROVIDERS: PCP Internal Medicine; Visit Provider Internal Medicine Medical Oncology | DX: Z95.2 Presence of prosthetic heart valve (principal); Z79.01 Long term (current) use of anticoagulants; Z51.81 Encounter for therapeutic drug level monitoring | CPT/HCPCS: 85610; 99211 ==

== ENCOUNTER 2024-12-18 07:37 | Outpatient (AMB) | payer OTHER, SELFPAY ==
--- OUTSIDE RECORDS SUMMARY | 2024-09-15 16:15 | XMS_ITS ---
Author Organization Lennox Tsang MD Address [address] [place] [address] [place] [phone] Care Team Providers Care Prenatal Teacher Name Role Phone Lennox Tsang Primary Care Provider REASON FOR VISIT Metformin Refill Medications Medication SIG (Take, Route, Fr equency, Duration) Notes Start Date End Date Status metFORMIN HCl 500 MG 2tablet with a meal Orally twice a day for 90 days Active Encounters Encounter Location Date Provider Diagnosis Lennox Tsang MD [address] [place] [address] [address] [place] [phone] 09/15/2024 Lennox Tsang Plan Of Treatment Medication Medication Name Sig Start Date Stop Date Notes metFORMIN HCl 500 MG 2tablet with a meal Orally twice a day for 90 days Next Appt Details Provider Name:Lennox white, 02/07/2025 02:00:00 PM, [address] [place] [address], [address], [phone], Provider Name:Lennox white, 04/26/2025 07:00:00 AM, [address] [place] [address], [address], [phone], Provider Name:Lennox white, 05/03/2025 02:30:00 PM, [address] [place] [address], [address], [phone], Progress Notes * Steve HAN:1975 (49 yo M)Acc No.[id number]:09/15/2024 Patient: Armen HAWKINS :1975 A ge:49 Y S ex:Male Address:[address] [place] [address], [address] [address] * Refills Refill metFORMIN HCl Tablet, 500 MG, Orally, 360 Tablet, 2tablet with a meal, twice a day, 90 days, Refills=3 * true * Date: Generated for Gabriela velazquez/Sarah/Mariaelenasmitting on: 0 12/18/2024 07:38 AM EDT
--- OUTSIDE RECORDS SUMMARY | 2024-12-12 23:59 | XMS_ITS | Continuity of Care Document ---
Author Organization [facility] Address [address] [place] [address] anupam, [address] [place] [address]- Care Team Providers Care Lead Data Architect Name Role Phone Lennox Tsang MD Primary Care Physician [phone] Encounter [facility] Date(s): 11/12/24 - 12/12/24 [facility] [address] [place] [address] [address] [place], [place] [address] Encounter Type: Triage Allergies, Adverse Reactions, [...] 10:23:00 AM EST, Route to Pharmacy Electronically, [facility], Partial fill upon patient [...] Quantity: 30.0 Unit: tablet Repeat number: 1 benzonatate 100 mg oral capsule 1 capsule = 100 mg, By Mouth, 3 times a day, for 7 days, # 21 capsule, 0 Refills, Acute 12/13/24 11:54:00 AM EDT, 12/06/24 11:54:00 AM EDT, Capsule, [id number], Partial fill upon patient request if the prescription is for a schedule II opioid drug., 163, cm, 10/31/24 13:58:00 EDT, Height, 91,kg, 10/13/23 18:57:00 EDT, Dry Weight Start Date: 12/06/24 Stop Date: 12/13/24 Status: Ordered Quantity: 21.0 Unit: capsule Repeat number: 1 Colace Clear = 50 [...] 0 Refills, Maintenance, 05/14/20 9:28:00 AM EST, [id number], Partial fill upon patient request if [...] Maintenance, 08/31/23 2:13:00 PM EDT, ER Tablet, [facility], Partial fill upon patient request [...] 3:28:00 PM EST, Route to Pharmacy Electronically, [facility], Partial fill upon patient request if [...] Maintenance, 04/03/20 3:12:00 PM EST, ER Capsule, [facility], Partial fill upon patient request, 163, [...] by mouth every tue, , , tue, tue. 7.5 mg by mouth every tue., 0 [...] Position: Reference Physician Member Role: PCP Address: [address] [place] [address] [place] [address]- Telecom: [phone] Name: Preet Valenzuela DO Position: [facility] Renal MD Member Role: Lifetime Consulting Physician Address: [address] [place] [address] [address] [facility] [place] [address]- Telecom: Name: Mishel Hogan RN Position: S RN Member Role: Primary Care Nurse Name: Becka Masters RN Position: [facility] Onco RN Member Role: Primary Care Nurse Name: Naya Willson RN Position: S RN Member Role: Primary Care Nurse Care Team Related Persons Name: RUDDY HAN Name: PITER HAN Insurance Providers Guarantor name: SARINA ALCARAZY Health Plan Information #: 1 Payer: [facility] Payer Identifier: NA Member Number: [id number] Group Number: [id number] Subscriber Identifier: [id number] Relationship to Subscriber: self Coverage Type: Other Private Insurance Coverage Verification Date: NA Telecom: NA Address:
--- OUTSIDE RECORDS SUMMARY | 2024-12-18 07:38 | XMS_ITS | Clinical Summary ---
Author Organization [facility] Address [address] [place] [address] Care Team Providers Care Childhood Teacher Name Role Phone Unavailable Primary Care Provider Unavailabl e Allergies No known active allergies Medications metoprolol succinate (TOPROL-XL) 50 mg 24 hr tablet Take 1 Tablet by mouth daily. 1 tab in the morning Active spironolactone (ALDACTONE) 100 mg tablet Take [...] M, W, Th, Sat, Sun. Coumadin clinic [place] H. managing INR Active atorvastatin (LIPITOR) 20 mg tablet Take 1 tablet (20 mg total) by mouth at bedtime. Active metOLazone (ZAROXOLYN) 2.5 mg tablet TAKE 1 TABLET BY MOUTH THREE TIMES A WEEK. 36 tablet 2 07/13/19 25 Active Additional Information Patient taking differently:2.5 mg oral2 times weekly, Reported on 09/11/2024 cholecalcifero l (VITAMIN D-3) 25 mcg (1,000 unit) tablet Take 1 tablet (1,000 Units total) by mouth 1 (one) time each day. Active torsemide (DEMADEX) 20 mg tablet TAKE THREE TABLETS BY MOUTH EVERY MORNING AND TAKE TWO TABLETS EVERY EVENING 450 tablet 3 12/05/19 25 Active torsemide (DEMADEX) 20 mg tablet Take 2 Tablets by mouth daily. 025 Discontinued Active Problems Problem Noted Date [...] Transfer text Palpitations 06/22/2022 Diastolic heart failure ([facility] V24, [facility] V2 8) 01/02/2021 Subaortic stenosis 06/02/2020 PVC (premature ventricular contraction) 06/02/19 21 Immunizations Name Administration Dates Next Due Moderna [...] Description 03/20/2025 7:50 AM EDT Office Visit [address] [place] [address] Zac Lal MD [address] [place] [address] [address] [place] [address] Health Maintenance Due Date Last Done Comments DTaP,Tdap,and Td Vaccines (1 - Tdap) 01/29/1995 Hepatitis B Vaccines (1 of 3 - 19+ 3-dose series) 01/29/1995 Cholesterol Screening (Lipid Panel) 01/22/2021 Colorectal Cancer Screening: Colonoscopy 01/22/2021 HIV Screening 01/22/2021 Hepatitis C Screening 01/22/2021 Social Influencers of Health Screening 01/22/2021 Pneumococcal Vaccine: Pediatrics (0 to 5 Years) and At-Risk Patients (6 to 49 Years) (2 of 2 - PCV) 04/03/2021 04/03/2020, 07/13/2016 Hypertension/CHF/CAD Annual BMP Blood Test 06/21/2023 Depression Screening 05/23/2024 Influenza Vaccine (#1) 2025 , 03/02/2023, 03/11/2022, [...] age to complete this topic Insurance [facility]
--- OUTSIDE RECORDS SUMMARY | 2024-12-18 07:38 | XMS_ITS | Encounter Summary ---
Author Organization [facility], Address [address] [place] [address] Phone Care Team Providers Care Wet Process Assistant Head Miller Name Role Phone Lennox Tsang MD Primary Care Provider Encounter Details Date Type Department Care Team (Late st Contact Info) Description 08/09/2022 Documentation Only [facility] [address] [place] [address] Lennox Tsang MD [address] [place] [address] [address] [place] [address] Social History Tobacco Use Types Packs/Day Years [...] Visit [facility] [address] [place] [address] Preet Valenzuela DO [address] [address] [place] [address] documented as of this encounter Visit Diagnoses Not on filedocumented in this encounter Care Teams Wet Process Assistant Head Miller Relationship Specialty Start Date End Date Lennox Tsang MD [address] [place] [address] [address] [place] [address] PCP - General Internal Medicine 08/09/22 documented as of this encounter
--- OUTSIDE RECORDS SUMMARY | 2024-12-18 07:39 | XMS_ITS | Patient Health Record ---
Author Organization [facility] Address [address] [place] [address] Care Team Providers Care Classroom Technology Coach Name Role Phone Sharan DIAZ, Lennox Primary Care Provider Gurjit Goodman Unavailable [phone] Allergies No Known Allergies Reason For Referral [...] Problem Status W/U Status Risk Notes Problem 02068473 Rectal bleeding (K62.5) Active confirmed Problem 218342876 Encounter for screening for malignant neoplasm of colon (Z12.11) Active confirmed Problem Diverticulosis o f large intestine without perforation or abscess without bleeding (K57.30) Active confirmed Plan Of Treatment Pending Test Test Name Order Date Pathology 11/24/2022 Future Test Test Name Order Date COLONOSCOPY 10/01/2022 Insurance Providers Payer Name Payer Address Payer Phone Subscriber Number Group Number Insured Name Patient Relationship to Insured Coverage Start Date Coverage End Date [facility] [address] [place] [address] [id number] SARINA HAN Self - patient is the insured Medical (General) History Medical History History ICD Code Denies [place],DM,CVA,Lung disease,renal dise ase 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 Lal in [place] Sleep apnea-CPAP Arrhythmia with PVC's Gout He describes that he has bee n told at [facility] that he is a difficult intubation Surgical History Surgery Date(Month/Year) Heart surgery for IHSS--his heart surgery in 2001 involved replacement of the aortic valve with a St. Fuad's valve 1984,1988,2001 Cervical spine fusion C1-C5 1988 Hernia repair--Bilateral inguinal and um bilical 2011,2013,2017, Tonsillectomy and adenoidectomy
--- OUTSIDE RECORDS SUMMARY | 2024-12-18 07:39 | XMS_ITS | Data Portability ---
Author Organization [place] [facility] Address [address] [address] Care Team Providers Care Overweaver Name Role Phone KHADIJAH GODWIN Primary Care Provider [phone] Assessment Encounter Date Assessment Date Assessment LastModified [...] audiometric testing. Patient also evaluated by Dr. Nowak. [email or web address] Not available 10/08/2024 12:06:26 10/23/2024 10/23/2024 [...] pursing due to limited finances. F/U PRN. [email or web address] Not available 11/15/2024 13:19:16 Plan of Treatment [...] Recorded Time Impacted cerumen of bilateral ears 2625994601825 108 Active 2024 WENDY PATEL PA-C [address] [address], [place], [address], [facility] - [facility] 5 12:06:34 Sensorineur al hearing loss of bilateral ears 309386502 Active 2024 JOHNATHON POZO AUD [address], [address], [facility] 5 13:25:21 Impacted cerumen in left ear 1816742821578 101 Active 2024 WENDY PATEL PA-C [address] [address], [place], [address], [facility] - [facility] 15:20:29 Problem Notes None recorded. Procedures Surgical History Date Name Laterality Status Provider Name and Address Organization Details Recorded Time Comp Audio with Tymps - 58036 & 13330 completed JOHNATHON POZO AUD 100 [facility],[address] [place], [address], [place] [facility] 10/23/2024 13:25:16 5 Cerumen removal without microscope left completed WENDY PATEL PA-C [address], [place], [address], [place] - [facility] 10/23/2024 15:21:03 5 Cerumen removal with microscope bilateral completed WENDY PATEL PA-C 100 [facility],[address], [place], [address], [facility] - [facility] 10/08/2024 10:40:11 Imaging Results None recorded. [...] Address Organization Details Last Updated DateTime 10/08/2024 37723.77 g 36.7 kg/m2 162.56 cm Kim Galo [place] - [facility] 10/08/2024 10:13:37 Date Recorded Body height Body mass index (BMI) Body weight Provider Name and Address Organization Details Last Updated DateTime 10/23/2024 162.56 cm 36.9 kg/m2 48257.36 g Agustina Eric [place] [facility] 10/23/2024 13:45:09 Social History Question Answer Notes LastModified by Organizat ion Details LastModified Time Tobacco Smoking Status Never Smoker Kim boyle [facility] 10/08/2024 10:14:11 What Type Of Research Assistant Member Do You Use? None Information not available 10/08/2024 Do You Have Any Pets? No [email or web address] Information not available 10/08/2024 Are You Passively Exposed To Smoke? No [email or web address] Information not available 10/08/2024 Are There Any Smokers In Your House? No [email or web address] Information not available 10/08/2024 Sex: Unknown Functional Status Question Answer Note LastModified by Organization Details LastModified Time Do you use any illicit or recreational drugs? No [email or web address] Information not available 10/08/2024 Do you or have you ever used any other forms of tobacco or nicotine? No [email or web address] Information not available 10/08/2024 What is your level of alcohol consumption? 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 noExposureToExcessiveNoise [email or web address] Infor mation not available 10/08/2024 Mental Status None recorded. Family History Nothing Reported. Medical History Condition Response Allergies/Hayfever N Heart Problems Y Anxiety N Tonsil Infections N Emphysema N Migraines N Thyroid Problems Y Depression N COPD N Developmental Delay N Glaucoma N Nasal or Sinus Problems N Anemia N Immune System Disorder N Anesthesia Complications N Heart Attack (DC) N Other Skin Condition N Diabetes Y [...] SNOMED-CT Code Diagnosis ICD10 Code Diagnosis Note [id number] WENDY PATEL PA-C [facility] [address] [place] [address] 10/08/2024 09:55:54 10/08/2024 10:46:57 Impacted cerumen of bilateral ears 0739370238 975145 H61.23 Hearing lo ss of left ear 881965787 H91.92 [id number] WENDY PATEL PA-C [facility] [address] [address] 10/23/2024 13:00:43 10/23/2024 14:37:47 Sensorineural hearing loss of bilateral ears 446115002 H90.3 Audiologic al evaluation results: 10/23/2024 Right ear: Normal through 3 kHz sloping to a mild sensorineu ral hearing loss with excellent word recognitio n. Left ear: Mild rising to normal sloping to moderate sensorineu ral hearing loss with excellent word recognitio n. Tympanomet ry: Right Ear:Type Ad Left Ear:Type A Impacted c erumen in left ear [id number] 186924 H61.22 [id number] STEVE CARRILLO [facility]NA[facility] [place] 100 [facility] [address] [place] [address] 11/15/2024 12:36:28 11/16/2024 13:07:37 Sensorineural hearing loss of bilateral ears 665172216 H90.3 Health Concerns Section Related Observation LastModified by Organization Detai ls LastModified Time None Recorded Concern Status LastModified by Organization Details LastModified Time None Recorded Advance Directives Directive None Recorded Payers Insurance Date Sequence Insurance Name Policy Number Policy Reynaga Covered Member ID Reynaga Member ID Guarantor Name 11/12/2024 1 [facility] [id number] Armen Olson [id number] Armen Olson
--- OUTSIDE RECORDS SUMMARY | 2024-12-18 07:39 | XMS_ITS | Patient Health Record ---
Author Organization [facility] Address [address] [facility] [address] [place] [address] Care Team Providers Care Baker Head Name Role Phone Lennox Tsang Primary Care [...] Insured Coverage Start Date Coverage End Date [facility] [address] [facility], [place] [address] [phone] [id number] Armen Olson Self - patient is the [...]
[2024-12-18 07:56] LABS: Prothrombin Time Whole Bld POC 47.0 sec (11.1-13.5); ~PT, ~INR - Anti Coag Clinic 3.9 (0.9-1.1)
--- NOTE | 2024-12-18 08:00 | MHC.OFFVISCO ---
Intake Intake Visit Reasons: Anticoagulation Allergies No Known Allergies Allergy (Verified 12/18/24 07:49) Medication List - Last Reconciled 12/18/24 by Mishel Logan RN albuterol sulfate 90 mcg/actuation 0 mcg inhalation allopurinol 300 mg PO DAILY atorvastatin 20 mg PO QPM benzonatate 100 mg PO TID colchicine 0.6 mg PO BID PRN metformin ER 1,000 mg PO BID metolazone mg PO metoprolol succinate ER 50 mg PO DAILY spironolactone 100 mg PO BID torsemide 40 mg PO DAILY [VITAMIN D 3 PO] warfarin 5 mg See Protocol PO DAILY Nursing Note INR 3.9 out of therapeutic range Medications and supplements reviewed Patient status: s/p vacation and cold/ cough - feeling better, starting new job at [employer] in [email or web address] and will need later appt times Medications or supplements: completed cough med Diet: good Denies any signs and symptoms of bleeding or clotting or unusual bruising Bleeding, bruising, clotting discussed Nutritional guidance given: greens and blueberries Dose: decrease to 5mg today then resume lower dose from previous week 10mg mwf/ 7.5mg x 4 days F/U INR Date : 1 week then 2 weeks ?? Patient verbalizing understanding of instructions given. 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
== END 2024-12-18 08:07 | disposition home or self-care (01) ==
LOC: HO.ACS 07:37
PROVIDERS: PCP Internal Medicine; Visit Provider Internal Medicine Medical Oncology
DX: Z79.01 Long term (current) use of anticoagulants (principal)

== ENCOUNTER → 2024-12-18 07:37 | Outpatient (BNVA) | payer OTHER, SELFPAY | PROVIDERS: PCP Internal Medicine; Visit Provider Internal Medicine Medical Oncology | DX: Z95.2 Presence of prosthetic heart valve (principal); Z79.01 Long term (current) use of anticoagulants; Z51.81 Encounter for therapeutic drug level monitoring | CPT/HCPCS: 85610; 99211 ==

== ENCOUNTER 2024-12-24 16:23 | Outpatient (AMB) | payer OTHER, SELFPAY ==
--- OUTSIDE RECORDS SUMMARY | 2024-09-10 08:21 | XMS_ITS ---
Author Organization Lennox Tsang MD Address [address] [place] [address] [place] [phone] Care Team Providers Care General Foundry Worker Name Role Phone Lennox Tsang Primary Care Provider REASON FOR VISIT New Refill Request Medications Medication SIG (Take, Route, Fr equency, Duration) Notes Start Date End Date Status metFORMIN HCl 500 MG 2tablet with a meal Orally twice for 90 days Active Encounters Encounter Location Date Provider Diagnosis Lennox Tsang MD [address] [place] [address] [place] [address] [phone] 09/10/2024 Lennox Tsang Plan Of Treatment Medication Medication Name Sig Start Date Stop Date Notes metFORMIN HCl 500 MG 2tablet with a meal Orally twice for 90 days Next Appt Details Provider Name:Lennox white, 02/07/2025 02:00:00 PM, [address] [place] [address], [address], [phone], Provider Name:Lennox white, 04/26/2025 07:00:00 AM, [address] [place] [address], [address], [phone], Provider Name:Lennox white, 05/03/2025 02:30:00 PM, [address] [place] [address], [address], [phone], Progress Notes * Steve HAN:1975 (49 yo M)Acc No.[id number]:09/10/2024 Patient: Armen HAWKINS :1975 A ge:49 Y S ex:Male Address:[address] [place] [address], [place] [address], [place] [address] * Refills Refill metFORMIN HCl Tablet, 500 MG, Orally, 180, 2tablet with a meal, twice, 90 days, Refills=3 * true * Date: Generated for Gabriela velazquez/Sarah/Annabellaitting on: 0 12/24/2024 04:25 PM EDT
--- OUTSIDE RECORDS SUMMARY | 2024-12-24 16:25 | XMS_ITS | Patient Health Record ---
Author Organization [facility] Address [address] [facility] [address] [place] [address] Care Team Providers Care Recreation Counselor Name Role Phone Lennox Tsang Primary Care [...] Insured Coverage Start Date Coverage End Date [facility] [address] [facility], [place] [address] [phone] [id number] Armen Olson Self - patient is the [...]
--- OUTSIDE RECORDS SUMMARY | 2024-12-24 16:25 | XMS_ITS | Clinical Summary ---
Author Organization Patient Business [facility] Address [address] [place] [address] Care Team Providers Care Frog Shaker Name Role Phone Unavailable Primary Care Provider [...] M, W, Th, Sat, Sun. Coumadin clinic [place] H. managing INR Active atorvastatin (LIPITOR) 20 [...] Transfer text Palpitations 06/22/2022 Diastolic heart failure ([facility] V24, [facility] V2 8) 01/02/2021 Subaortic stenosis 06/02/2020 [...] Description 03/20/2025 7:50 AM EDT Office Visit [address] [place] [address] Zac Lal MD [address] [place] [address] [address] [place] [address] Health Maintenance Due Date Last Done Comments [...] patient's age to complete this topic Insurance [facility]
--- OUTSIDE RECORDS SUMMARY | 2024-12-24 16:25 | XMS_ITS | Encounter Summary ---
Author Organization [facility], Address [address] [place] [address] Phone Care Team Providers Care Golf Range Attendant Name Role Phone Lennox Tsang MD Primary Care Provider Encounter Details Date Type Department Care Team (Late st Contact Info) Description 08/09/2022 Documentation Only [facility] [address] [place] [address] Lennox Tsang MD [address] [place] [address] [address] [place] [address] Social History Tobacco Use Types Packs/Day Years [...] Visit [facility] [address] [place] [address] Preet Valenzuela DO [address] [facility] [place] [address] documented as of this encounter Visit Diagnoses Not on filedocumented in this encounter Care Teams Golf Range Attendant Relationship Specialty Start Date End Date Lennox Tsang MD [address] [place] [address] [address] [place] [address] PCP - General Internal Medicine 08/09/22 documented as of this encounter
--- OUTSIDE RECORDS SUMMARY | 2024-12-24 16:26 | XMS_ITS | Patient Health Record ---
Author Organization [facility] Address [address] [place] [address] Care Team Providers Care Aquatic Biologist Name Role Phone Sharan DIAZ, Lennox Primary Care Provider Gurjit Goodman Unavailable [phone] Allergies No Known Allergies Reason For Referral [...] Problem Status W/U Status Risk Notes Problem 37835229 Rectal bleeding (K62.5) Active confirmed Problem 836497745 Encounter for screening for malignant neoplasm of [...] Insured Coverage Start Date Coverage End Date [facility] [address] [place] [address] [id number] SARINA HAN Self - patient is the insured Medical (General) History Medical History History ICD Code Denies [place],DM,CVA,Lung disease,renal dise ase 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 Lal in [place] Sleep apnea-CPAP Arrhythmia with PVC's Gout He describes that he has bee n told at [facility] that he is a difficult intubation Surgical History Surgery Date(Month/Year) Heart surgery for IHSS--his heart surgery in 2001 involved replacement of the aortic valve with a St. Fuad's valve 1984,1988,2001 Cervical spine fusion C1-C5 1988 Hernia repair--Bilateral inguinal and um bilical 2011,2013,2017, Tonsillectomy and adenoidectomy
[2024-12-24 16:30] LABS: Prothrombin Time Whole Bld POC 24.3 sec (11.1-13.5); ~PT, ~INR - Anti Coag Clinic 2.0 (0.9-1.1)
--- NOTE | 2024-12-24 16:43 | MHC.OFFVISCO ---
Intake Intake Visit Reasons: Anticoagulation Allergies No Known Allergies Allergy (Verified 12/24/24 16:24) Medication List - Last Reconciled 12/24/24 by Mishel Logan RN albuterol sulfate 90 mcg/actuation 0 mcg inhalation allopurinol 300 mg PO DAILY atorvastatin 20 mg PO QPM benzonatate 100 mg PO TID colchicine 0.6 mg PO BID PRN metformin ER 1,000 mg PO BID metolazone mg PO metoprolol succinate ER 50 mg PO DAILY spironolactone 100 mg PO BID torsemide 40 mg PO DAILY [VITAMIN D 3 PO] warfarin 5 mg See Protocol PO DAILY Nursing Note INR 2.0 out of therapeutic range 2.5-3.5 - ma have eaten too many greens (previous INR was 3.9 last week and 4.9 week prior) Medications and supplements reviewed Patient status: Pt still has cough from cold over week ago, states he feels full, abd large round and full and tight like drum - will convey concer to PCP. Pt states it is from eating too much, his abd appears tight as filled with fluid rather than adipose tissue. Medications or supplements: no changs Diet: same Denies any signs and symptoms of bleeding or clotting or unusual bruising Bleeding, bruising, clotting discussed Nutritional guidance given: avoid greens x 3 days- eat orange and reds Dose: booster dose this week 10mg x 4 days/ 7.5mg x 3days F/U INR Date : 1 week?? Patient verbalizing understanding of instructions given. t/c to PCP regarding INR today- office already closed- will reach out to PCP in am T/c to pt to verify his hx with lovenox. Anti-Coag Initial Assessment Social Hx Patient Tobacco Use Status: Never used Tobacco Coding Level of Care Code Est Patient Level 1 Diagnoses Current use of anticoagulant therapy Z79.01 Results AMB INR Fingerstick AMB INR Fingerstick 2.0 Last Edit by Mishel Logan RN on 12/24/24 16:32 manual entry Assessment & Plan Assessment & Plan (1) Current use of anticoagulant therapy: Code(s): Z79.01 - terminal carman (current) use of anticoagulants Category: Medical
== END 2024-12-24 16:54 | disposition home or self-care (01) ==
LOC: HO.ACS 16:23
PROVIDERS: PCP Internal Medicine; Visit Provider Internal Medicine Medical Oncology
DX: Z79.01 Long term (current) use of anticoagulants (principal)

== ENCOUNTER → 2024-12-24 16:23 | Outpatient (BNVA) | payer OTHER, SELFPAY | PROVIDERS: PCP Internal Medicine; Visit Provider Internal Medicine Medical Oncology | DX: Z79.01 Long term (current) use of anticoagulants (principal) | CPT/HCPCS: 85610; 99211 ==

== ENCOUNTER 2024-12-31 16:18 | Outpatient (AMB) | payer OTHER, SELFPAY ==
--- OUTSIDE RECORDS SUMMARY | 2024-09-10 08:21 | XMS_ITS ---
Author Organization eLnnox Tsang MD Address [address] [facility] [address] [place] [phone] Care Team Providers Care Telecommunications Network Planner Name Role Phone Lennox Tsang Primary Care Provider [phone] REASON FOR VISIT New Refill Request Medications Medication SIG (Take, Route, Fr equency, Duration) Notes Start Date End Date Status metFORMIN HCl 500 MG 2tablet with a meal Orally twice for 90 days Active Encounters Encounter Location Date Provider Diagnosis Lennox Tsang MD [address] [place] [address] [place] [address] [phone] 09/10/2024 Lennox Tsang Plan Of Treatment Medication Medication Name Sig Start Date Stop Date Notes metFORMIN HCl 500 MG 2tablet with a meal Orally twice for 90 days Next Appt Details Provider Name:Lennox white, 02/07/2025 02:00:00 PM, [address] [place] [address], [address], [phone], Provider Name:Lennox white, 04/26/2025 07:00:00 AM, [address] [place] [address], [address], [phone], Provider Name:Lennox white, 05/03/2025 02:30:00 PM, [address] [place] [address], [address], [phone], Progress Notes * Setve HAN:1975 (49 yo M)Acc No.[id number]:09/10/2024 Patient: Armen HAWKINS :1975 A ge:49 Y S ex:Male Address:[address] [place] [address], [place] [address], [place] [address] * Refills Refill metFORMIN HCl Tablet, 500 MG, Orally, 180, 2tablet with a meal, twice, 90 days, Refills=3 * true * Date: Generated for Gabriela velazquez/Sarah/Annabellaitting on: 0 12/31/2024 04:19 PM EDT
--- OUTSIDE RECORDS SUMMARY | 2024-12-31 16:20 | XMS_ITS | Patient Health Record ---
Author Organization [facility] Address [address] [facility] [address] [place] [address] Care Team Providers Care Application Systems Engineer Name Role Phone Lennox Tsang Primary Care [...] Problem Status W/U Status Risk Notes Problem Information temporarily unavailable Arterial atherosclerosis (I70.8) Active confirmed Plan Of Treatment Pending Test Test Name Order Date EMIL 04/19/2022 Ultrasound : Artery Doppler Low Ext Bila t 04/19/2022 X ray : Foot, left 3v 04/19/2022 Insurance Providers Payer Name Payer Address Payer Phone Subscriber Number Group Number Insured Name Patient Relationship to Insured Coverage Start Date Coverage End Date [facility] [address] [facility], [place] [address] [id number] Armen Olson Self - patient is the [...]
--- OUTSIDE RECORDS SUMMARY | 2024-12-31 16:20 | XMS_ITS | Clinical Summary ---
Author Organization Patient Business Ser vice [facility] Address [address] [place] [address] Care Team Providers Care Supervisor White Sugar Name Role Phone Unavailable Primary Care Provider [...] M, W, Th, Sat, Sun. Coumadin clinic [place] H. managing INR Active atorvastatin (LIPITOR) 20 [...] Transfer text Palpitations 06/22/2022 Diastolic heart failure ([facility] V24, [facility] V2 8) 01/02/2021 Subaortic stenosis 06/02/2020 PVC [...] Description 03/20/2025 7:50 AM EDT Office Visit [address] [place] [address] Zac Lal MD [address] [place] [address] DRIVE [address] [place] [address] Health Maintenance Due Date Last Done Comments [...] patient's age to complete this topic Insurance ED [facility]
--- OUTSIDE RECORDS SUMMARY | 2024-12-31 16:20 | XMS_ITS | Patient Health Record ---
Author Organization [facility] Address [address] [place] [address] Care Team Providers Care Agronomy Instructor Name Role Phone Sharan DIAZ, Lennox Primary Care Provider Gurjit Goodman Unavailable [phone] Allergies No Known Allergies Reason For Referral [...] Problem Status W/U Status Risk Notes Problem [id number] Rectal bleeding (K62.5) Active confirmed Problem [id number] Encounter for screening for malignant neoplasm of [...] Insured Coverage Start Date Coverage End Date [facility] [address] [place] [address] [id number] SARINA HAN Self - patient is the insured Medical (General) History Medical History History ICD Code Denies [place],DM,CVA,Lung disease,renal dise ase 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 Lal in [place] Sleep apnea-CPAP Arrhythmia with PVC's Gout He describes that he has bee n told at [facility] that he is a difficult intubation Surgical History Surgery Date(Month/Year) Heart surgery for IHSS--his heart surgery in 2001 involved replacement of the aortic valve with a [employer]. Fuad's valve 1984,1988,2001 Cervical spine fusion C1-C5 1988 Hernia repair--Bilateral inguinal and um bilical 2011,2013,2017, Tonsillectomy and adenoidectomy
--- NOTE | 2024-12-31 16:44 | MHC.OFFVISCO ---
Intake Intake Visit Reasons: Anticoagulation Allergies No Known Allergies Allergy (Verified 12/31/24 16:18) Medication List - Last Reconciled 12/31/24 by Mishel Logan RN albuterol sulfate 90 mcg/actuation 0 mcg inhalation allopurinol 300 mg PO DAILY atorvastatin 20 mg PO QPM benzonatate 100 mg PO TID colchicine 0.6 mg PO BID PRN metformin ER 1,000 mg PO BID metolazone mg PO metoprolol succinate ER 50 mg PO DAILY spironolactone 100 mg PO BID torsemide 40 mg PO DAILY [VITAMIN D 3 PO] warfarin 5 mg See Protocol PO DAILY Nursing Note INR: 2.6 in therapeutic range Medications and supplements reviewed No changes in medications, or supplements, * Pt eating foods to help keep INR in range * Still has cough s/p cold like symptoms - no fever or chills - states he coughs when he sits - may be contributed to abd girth 0 enc to discuss with md Denies any signs and symptoms of bleeding or bruising or clotting. Bleeding, bruising, clotting discussed Nutritional guidance given Dose: keep same dose 10mg mwf/ 7.5mg x 4 days F/U INR: 2 weeks Patient verbalizes understanding of instructions given Anti-Coag Initial Assessment Social Hx Patient Tobacco Use Status: Never used Tobacco Coding Level of Care Code Est Patient Level 1 Diagnoses Current use of anticoagulant therapy Z79.01 Results AMB INR Fingerstick AMB INR Fingerstick 2.6 Last Edit by Mishel Logan RN on 12/31/24 16:27 manual entry Assessment & Plan Assessment & Plan (1) Current use of anticoagulant therapy: Code(s): Z79.01 - [facility] (current) use of anticoagulants Category: Medical
[2024-12-31 17:04] LABS: Prothrombin Time Whole Bld POC 30.8 sec (11.1-13.5); ~PT, ~INR - Anti Coag Clinic 2.6 (0.9-1.1)
== END 2024-12-31 16:47 | disposition home or self-care (01) ==
LOC: HO.ACS 16:18
PROVIDERS: PCP Internal Medicine; Visit Provider Internal Medicine Medical Oncology
DX: Z79.01 Long term (current) use of anticoagulants (principal)

== ENCOUNTER → 2024-12-31 16:18 | Outpatient (BNVA) | payer OTHER, SELFPAY | PROVIDERS: PCP Internal Medicine; Visit Provider Internal Medicine Medical Oncology | DX: Z79.01 Long term (current) use of anticoagulants (principal) | CPT/HCPCS: 85610; 99211 ==

== ENCOUNTER → 2025-01-14 16:19 | Outpatient (BNVA) | payer OTHER, SELFPAY | PROVIDERS: PCP Internal Medicine; Visit Provider Internal Medicine Medical Oncology | DX: Z95.2 Presence of prosthetic heart valve (principal); Z79.01 Long term (current) use of anticoagulants; Z51.81 Encounter for therapeutic drug level monitoring | CPT/HCPCS: 85610; 99211 ==

== ENCOUNTER 2025-02-04 16:20 | Outpatient (AMB) | payer OTHER, SELFPAY ==
--- OUTSIDE RECORDS SUMMARY | 2024-09-15 16:15 | XMS_ITS ---
Author Organization Lennox Tsang MD Address [address] [place] [phone] Care Team Providers Care Wardrobe Assistant Name Role Phone Lennox Tsang Primary Care Provider REASON FOR VISIT Metformin Refill Medications Medication SIG (Take, Route, Fr equency, Duration) Notes Start Date End Date Status metFORMIN HCl 500 MG 2tablet with a meal Orally twice a day for 90 days Active Encounters Encounter Location Date Provider Diagnosis Lennox Tsang MD [address] [place] [address] [place] [phone] 09/15/2024 Lennox Tsang Plan Of Treatment Medication Medication Name Sig Start Date Stop Date Notes metFORMIN HCl 500 MG 2tablet with a meal Orally twice a day for 90 days Next Appt Details Provider Name:Lennox white, 04/26/2025 07:00:00 AM, [address] [place] [address], [phone], Provider Name:Lennox white, 05/03/2025 02:30:00 PM, [address] [place] [address], [phone], Progress Notes * Ian HANOB:1975 (49 yo M)Acc No.[id number]:09/15/2024 Patient: Armen HAWKINS :1975 A ge:49 Y S ex:Male Address:[address] [place] [address], [address], [place] [address] * Refills Refill metFORMIN HCl Tablet, 500 MG, Orally, 360 Tablet, 2tablet with a meal, twice a day, 90 days, Refills=3 * true * Date: Generated for Gabriela velazquez/Sarah/Annabellaitting on: 0 02/04/2025 09:25 PM EDT
--- OUTSIDE RECORDS SUMMARY | 2024-11-02 03:15 | XMS_ITS ---
Author Organization Lennox Tsang MD Address [address] [place], [place] [phone] Care Team Providers Care Reed Cleaner Name Role Phone Lennox Tsang Primary Care Provider [phone] Results Component Value Reference Range Notes Liver Panel Reviewed date:11/02/2024 12:41:22 PM Interpretation: Performing Lab:[facility], [address] [place] [phone] Notes/Report: Bilirubin Total 0.6 0.0-1.0 mg/dL Bilirubin Direct 0.2 0.0-0.5 mg/dL Aspartate Amino Transferase 45 5-37 U/L Slight Hemolysis.Interpret result with caution. Alanine Aminotransferase 31 0-40 U/L Total Protein 8.1 6.5-8.0 g/dL Albumin Level 4.9 3.5-5.0 g/dL Alkaline Phosphatase 85 39-117 U/L Lipid Panel with Reflex Reviewed date:11/02/2024 12:41:04 PM Interpretation: Performing Lab:[facility], [address] [place] [phone] Notes/Report: Triglycerides 176 <150 mg/dL Desirable Triglyceride: [...] Location Date Provider Diagnosis Lennox Tsang MD [address] [place] [address] [address] [place] [phone] 11/02/2024 Lennox Tsang Hypercholesteremia E 78.00 Assessments Encounter Date Diagnosis (ICD Code) Assessment Notes Treatment Notes Treatment Clinical Notes Section Notes 11/02/2024 Hypercholesteremia (ICD-10 - E78.00) Plan Of Treatment Next Appt Details Provider Name:Lennox white, 04/26/2025 07:00:00 AM, [address] [place] [address], Suite [facility], [place], [place], [phone], Provider Name:Lennox white, 05/03/2025 02:30:00 PM, [address] [place] [address], Suite [facility], [place], [place], [phone], Progress Notes * EMELY, IanOB:1975 (50 yo M)Acc No.[id number]:11/02/2024 Progress Note Patient: Armen HAWKINS Provider: Remy Tsang MD :1975 A ge:49 Y S ex:Male Date:11/02/2024 Address:[address] [place], [place] [phone] Subjective: * Chief Complaints: * 1 . [...] 0 11/02/2024 Generated for Gabriela velazquez/Sarah/Nahid on: 0 02/04/2025 09:25 PM EDT
--- OUTSIDE RECORDS SUMMARY | 2025-01-01 10:51 | XMS_ITS ---
Author Organization Lennox Tsang MD Address [address] [place] [phone] Care Team Providers Care Plate Shear Operator Name Role Phone Lennox Tsang Primary Care Provider REASON FOR VISIT Appointments Encounters Encounter Location Date Provider Diagnosis Lennox Tsang MD [address] [place] [address] [place] [address] [phone] 01/01/2025 Lennox Tsang Plan Of Treatment Next Appt Details Provider Name:Lennox Reyes ier, 04/26/2025 07:00:00 AM, [address] [place] [address], [address], [phone], Provider Name:Lennox Reyes ier, 05/03/2025 02:30:00 PM, [address] [place] [address], [phone], Progress Notes * Ian HANOB:1975 (49 yo M)Acc No.[id number]:01/01/2025 Patient: Rob CarrTasha Armen :1975 A ge:49 Y S ex:Male Address:[address] [place] [address], [address], [place] [address] * true * Date: Generated for Printi ng/Faxing/eTransmitting on: 0 02/04/2025 09:25 PM EDT
--- OUTSIDE RECORDS SUMMARY | 2025-01-28 05:33 | XMS_ITS ---
Author Organization Lennox Tsang MD Address [address] [place] [phone] Care Team Providers Care Global Logistics Analyst Name Role Phone Lennox Tsang Primary [...] Location Date Provider Diagnosis Lennox Tsang MD [address] [place] [address] [place] [phone] 01/28/2025 Lennox Tsang Hypercholesteremia E 78.00 Assessments [...] Provider Name:Lennox white, 04/26/2025 07:00:00 AM, [address] [place] [address], [address], [phone], Provider Name:Lennox white, 05/03/2025 02:30:00 PM, [address] [place] [address], [address], [phone], Progress Notes * Ian HANOB:1975 (49 yo M)Acc No.[id number]:01/28/2025 Patient: Armen HAWKINS :1975 A ge:49 Y S ex:Male Address:[address] [place] [address], [facility] [address], [place] [address] * Refills Refill Atorvastatin Calcium Tablet, 20 MG, Orally, 90 Tablet, 1 tablet, Once a day, 90 days, Refills=3 Refill Warfarin Sodium Tablet, 5 MG, Orally, 180 Tablet, 2 tabs, Once a day, 90 days, Refills=4 * true * Date: Generated for Gabriela velazquez/Sarah/Annabellaitting on: 0 02/04/2025 09:26 PM EDT
--- OUTSIDE RECORDS SUMMARY | 2025-01-28 05:36 | XMS_ITS ---
Author Organization Lennox Tsang MD Address [address] [place] [address] [place] [phone] Care Team Providers Care Automobile Service Station Mechanic Name Role Phone Lennox Tsang Primary Care Provider REASON FOR VISIT Refill Request Encounters Encounter Location Date Provider Diagnosis Lennox Tsang MD [address] [place] [address] [place] [phone] 01/28/2025 Lennox Tsang Plan Of Treatment Next Appt Details Provider Name:Lennox Reyes ierob, 04/26/2025 07:00:00 AM, [address] [place] [address], [address], [phone], Provider Name:Lennox Reyes ier, 05/03/2025 02:30:00 PM, [address] [place] [address], [phone], Progress Notes * Ian HANOB:1975 (49 yo M)Acc No.[id number]:01/28/2025 Patient: Rob CarrTashaArmen :1975 A ge:49 Y S ex:Male Address:[address] [place] [address], [address], [place] [address] * true * Date: Generated for Printi ng/Faxing/eTransmitting on: 0 02/04/2025 09:25 PM EDT
[2025-02-04 16:26] LABS: Prothrombin Time Whole Bld POC 39.4 sec (11.1-13.5); ~PT, ~INR - Anti Coag Clinic 3.3 (0.9-1.1)
--- NOTE | 2025-02-04 16:30 | MHC.OFFVISCO ---
Intake Intake Visit Reasons: Anticoagulation Allergies No Known Allergies Allergy (Verified 02/04/25 16:20) Medication List - Last Reconciled 02/04/25 by Mishel Logan RN albuterol sulfate 90 mcg/actuation 0 mcg inhalation allopurinol 300 mg PO DAILY atorvastatin 20 mg PO QPM colchicine 0.6 mg PO BID PRN metformin ER 1,000 mg PO BID metolazone mg PO metoprolol succinate ER 50 mg PO DAILY spironolactone 100 mg PO BID torsemide 40 mg PO DAILY [VITAMIN D 3 PO] warfarin 5 mg See Protocol PO DAILY Nursing Note INR: 3.3 in therapeutic range 2.5-3.5 Medications and supplements reviewed No changes in health, diet, medications, or supplements, Denies any signs and symptoms of bleeding or bruising or clotting. Bleeding, bruising, clotting discussed Nutritional guidance given Dose: Keep same dose 10mg mwf/ 7.5mg x 4 days F/U INR: 3 weeks or prn patient needs Patient verbalizes understanding of instructions given Anti-Coag Initial Assessment Social Hx Patient Tobacco Use Status: Never used Tobacco Questionnaires HAS-BLED Does the patient had uncontrolled Hypertension?: No Does the patient have renal disease?: No Does the patient have liver disease?: No Does the patient have a history of stroke?: No Has the patient had major bleeding or predisposition to bleeding?: No Does the patient have labile INRs?: Yes Is the patient over 65 years of age?: No Is the patient on medications that gives them a predisposition to bleeding?: Yes Does the patient use alcohol?: No HAS-BLED Score: 2 CHADSVASC Age: <65 Gender: Male Does the patient have a history of CHF?: Yes Does the patient have a history of Hypertension?: Yes Does the patient have a history of Stroke/TIA/Thromboembolism?: No Does the patient have a history of Vascular Disease (prior GA, PAD or aortic plaque)?: Yes Does the patient have a history of Diabetes?: Yes CHADS VACS Score: 4 Veda Prediction Score Rsk VTE Active Cancer: No Previous VTE, excluding superficial vein thrombosis: No Reduced mobility: No Already known Thrombophilic Condition: No With-in last month Trauma and/or Surgery: No Elderly 70 year or older: No Heart and/or Respiratory Failure: Yes Acute Myocardial infarction and/or Ischemic Stroke: No Acute Infection and/or Rheumatologic Disorder: No Obesity (BMI 30 or greater): Yes Ongoing Hormonal Treatment: No Score: 2 Veda Score less than 4; Low Risk of VTE Veda Score 4 or greater; High Risk of VTE Coding Level of Care Code Est Patient Level 1 Diagnoses Current use of anticoagulant therapy Z79.01 Assessment & Plan Assessment & Plan (1) Current use of anticoagulant therapy: Code(s): Z79.01 - manager long term care (current) use of anticoagulants Category: Medical
--- OUTSIDE RECORDS SUMMARY | 2025-02-04 21:25 | XMS_ITS | Encounter Summary ---
Author Organization [facility], Address [address] [place] [address] Phone Care Team Providers Care Hand Model Name Role Phone Lennox Tsang MD Primary Care Provider Encounter Details Date Type Department Care Team (Late st Contact Info) Description 08/09/2022 Documentation Only [facility] [address] [place] [address] Lennox Tsang MD [address] [place] [address] [address] [place] [address] Social History Tobacco Use Types Packs/Day Years [...] Visit [facility] [address] [place] [address] Preet Valenzuela DO [address] [facility] [place] [address] documented as of this encounter Visit Diagnoses Not on filedocumented in this encounter Care Teams Hand Model Relationship Specialty Start Date End Date Lennox Tsang MD [address] [place] [address] [address] [place] [address] PCP - General Internal Medicine 08/09/22 documented as of this encounter
--- OUTSIDE RECORDS SUMMARY | 2025-02-04 21:25 | XMS_ITS | Encounter Summary ---
Author Organization [facility] Address [address] [place] [address] Phone Care Team Providers Care Baby Formula Mixer Name Role Phone Lennox Tsang MD Primary Care Provider Encounter Details Date Type Department Care Team (Late st Contact Info) Description 08/09/2024 Documentation Only [facility] [address] [place] [address] Preet Valenzuela DO [address] [facility] [place] [address] Social History Tobacco Use Types [...] Visit [facility] [address] [place] [address] Preet Valenzuela DO [address] [place] [address] documented as of this encounter Visit Diagnoses Not on filedocumented in this encounter Care Teams Baby Formula Mixer Relationship Specialty Start Date End Date Lennox Tsang MD [address] [facility] [address] [place], [place] PCP - General Internal Medicine 08/09/22 documented as of this encounter
--- OUTSIDE RECORDS SUMMARY | 2025-02-04 21:25 | XMS_ITS | Encounter Summary ---
Author Organization [facility] Address [address] [place] [address] Phone Care Team Providers Care Manager Image Name Role Phone Lennox Tsang MD Primary Care Provider [phone] Encounter Details Date Type Department Care Team (Late st Contact Info) Description 09/21/2023 Documentation Only [facility] [address] [place] [address] Preet Valenzuela DO [address] [facility] [place] [address] Social History Tobacco Use Types [...] Visit [facility] [address] [place] [address] Preet Valenzuela DO [address] [facility] [place] [address] documented as of this encounter Visit Diagnoses Not on filedocumented in this encounter Care Teams Manager Image Relationship Specialty Start Date End Date Lennox Tsang MD [address] [facility] [facility] [address] [address] [place], [place] PCP - General Internal Medicine 08/09/22 documented as of this encounter
--- OUTSIDE RECORDS SUMMARY | 2025-02-04 21:25 | XMS_ITS | Encounter Summary ---
Author Organization [facility] Address [address] [place] [address] Phone Care Team Providers Care Coagulating Drying Supervisor Name Role Phone Lennox Tsang MD Primary Care Provider Encounter Details Date Type Department Care Team (Late st Contact Info) Description 01/27/2024 Orders Only [facility] [address] [place] [address] Preet Valenzuela DO [address] [facility] [place] [address] Hypokalemia; Heart failure with normal [...] [facility] [address] [place] [address] Preet Valenzuela DO [address] [facility] [place] [address] documented as of this encounter [...] Magnesium 1.6 1.6 - 2.3 mg/dL [facility] Blood specimen (specimen) Venous blood / Unknown 03/21/2024 9:00 AM EDT 03/21/2024 us Preet Valenzuela DO LAB BLOOD ORDERABLES Final Resu lt [facility] [address] [place] [address] * (ABNORMAL) Renal Function Panel (03/21/2024 9:00 AM EDT) Glucose 112(H) 70 - 99 mg/dL [facility] BUN 23 6 - 24 mg/dL [facility] Creatinine 1.23 0.76 - 1.27 mg/dL [facility] eGFR CKD-EPI CR 2020 72 >59 mL/min/1.7 3 [facility] BUN/Creatinine Ratio 19 9 - 20 [facility] Sodium 136 134 - 144 mmol/L [facility] Potassium 5.1 3.5 - 5.2 mmol/L [facility] Chloride 95(L) 96 - 106 mmol/L [facility] Bicarbonate (CO2) 21 20 - 29 mmol/L [facility] Calcium 9.7 8.7 - 10.2 mg/dL [facility] Phosphorus 2.3(L) 2.8 - 4.1 mg/dL [facility] Albumin 4.5 4.1 - 5.1 g/dL [facility] Blood specimen (specimen) Venous blood / Unknown 03/21/2024 9:00 AM EDT 03/21/2024 us Preet Valenzuela DO LAB BLOOD ORDERABLES Final Resu lt [facility] [address] [place] [phone] documented in this encounter Visit Diagnoses Diagnosis Hypokalemia Heart failure with normal ejection fraction (HCC) Hypercalcemia documented in this encounter Care Teams Coagulating Drying Supervisor Relationship Specialty Start Date End Date Lennox Tsang MD [address] [place] [address] [address] [place], [place] PCP - General Internal Medicine 08/09/22 documented as of this encounter
--- OUTSIDE RECORDS SUMMARY | 2025-02-04 21:25 | XMS_ITS | Patient Health Record ---
Author Organization [facility] Address [address] [facility] [address] [place] [address] Care Team Providers Care Riveter Name Role Phone Lennox Tsang Primary Care [...] Status Risk Notes Problem Atherosclerosis of artery (407485559) Arterial atherosclerosis (I70.8) Active confirmed Plan Of Treatment Pending Test Test Name Order Date EMIL 04/19/2022 Ultrasound : Artery Doppler Low Ext Bila t 04/19/2022 X ray : Foot, left 3v 04/19/2022 Insurance Providers Payer Name Payer Address Payer Phone Subscriber Number Group Number Insured Name Patient Relationship to Insured Coverage Start Date Coverage End Date [facility] [address] [place], [place] [phone] [id number] Armen Olson Self - patient is the [...]
--- OUTSIDE RECORDS SUMMARY | 2025-02-04 21:25 | XMS_ITS | Encounter Summary ---
Author Organization [facility] Address [address] [place] [address] Phone Care Team Providers Care Cosmetician Apprentice Name Role Phone Lennox Tsang MD Primary Care Provider Encounter Details Date Type Department Care Team (Late st Contact Info) Description 04/20/2024 Orders Only [facility] [address] [facility] [place] [address] Preet Valenzuela DO [address] [place] [address] Hypokalemia; Heart failure with normal [...] Visit [facility] [address] [facility] [place] [address] Preet Valenzuela DO [address] [place] [address] documented as of this encounter Visit Diagnoses Diagnosis Hypokalemia Heart failure with normal ejection fraction (HCC) Hypercalcemia documented in this encounter Care Teams Cosmetician Apprentice Relationship Specialty Start Date End Date Lennox Tsang MD [address] [place] [address] [address] [place] PCP - General Internal Medicine 08/09/22 documented as of this encounter
--- OUTSIDE RECORDS SUMMARY | 2025-02-04 21:26 | XMS_ITS | Encounter Summary ---
Author Organization [facility] Address [address] [place] [address] Phone Care Team Providers Care Construction Supervisor/Carpenter Name Role Phone Lennox Tsang MD Primary Care Provider [phone] Encounter Details Date Type Department Care Team (Late st Contact Info) Description 09/01/2023 Documentation Only [facility] [address] [place] [address] Preet Valenzuela DO [address] [facility] [place] [address] Social History Tobacco Use Types [...] Visit [facility] [address] [facility] [place] [address] Preet Valenzuela DO [address] [facility] [place] [address] documented as of this encounter Visit Diagnoses Not on filedocumented in this encounter Care Teams Construction Supervisor/Carpenter Relationship Specialty Start Date End Date Lennox Tsang MD [address] [facility] [address] [place], [place] PCP - General Internal Medicine 08/09/22 documented as of this encounter
--- OUTSIDE RECORDS SUMMARY | 2025-02-04 21:26 | XMS_ITS | Encounter Summary ---
Author Organization [facility] Address [address] [place] [address] Phone Care Team Providers Care Senior Quality Control Inspector Name Role Phone Lennox Tsang MD Primary Care Provider [phone] Encounter Details Date Type Department Care Team (Late st Contact Info) Description 07/13/2024 Orders Only [facility] [address] [facility] [place] [address] Preet Valenzuela DO [address] [facility] [place] [address] Hypokalemia; Heart failure with normal [...] Visit [facility] [address] [facility] [place] [address] Preet Valenzuela DO [address] [facility] [place] [address] documented as of this encounter Visit Diagnoses Diagnosis Hypokalemia Heart failure with normal ejection fraction (HCC) Hypercalcemia documented in this encounter Care Teams Senior Quality Control Inspector Relationship Specialty Start Date End Date Lennox Tsang MD [address] [place] [address] [address] [place] PCP - General Internal Medicine 08/09/22 documented as of this encounter
--- OUTSIDE RECORDS SUMMARY | 2025-02-04 21:26 | XMS_ITS | Patient Health Record ---
Author Organization [facility] Address [address] [place] [address] Care Team Providers Care Customer Care Voice Consultant Name Role Phone Sharan DIAZ, Lennox Primary Care Provider Gurjit Goodman Unavailable [phone] Allergies No Known Allergies Reason For Referral [...] Problem Status W/U Status Risk Notes Problem [id number] Rectal bleeding (K62.5) Active confirmed Problem 844655884 Encounter for screening for malignant neoplasm of colon (Z12.11) Active confirmed Problem Diverticular disease of colon (013789573) Diverticulosis of large intestine without perforation or abscess without bleeding (K57.30) Active confirmed Plan Of Treatment Pending Test Test Name Order Date Pathology 11/24/2022 Future Test Test Name Order Date COLONOSCOPY 10/01/2022 Insurance Providers Payer Name Payer Address Payer Phone Subscriber Number Group Number Insured Name Patient Relationship to Insured Coverage Start Date Coverage End Date [facility] [address] [address] [place] [phone] [id number] SARINA HAN Self - patient is the insured Medical (General) History Medical History History ICD Code Denies NM,DM,CVA,Lung disease,renal dise ase 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 Lal in [place] Sleep apnea-CPAP Arrhythmia with PVC's Gout He describes that he has bee n told at [facility] that he is a difficult intubation Surgical History Surgery Date(Month/Year) Heart surgery for IHSS--his heart surgery in 2001 involved replacement of the aortic valve with a [place]. Fuad's valve 1984,1988,2001 Cervical spine fusion C1-C5 1988 Hernia repair--Bilateral inguinal and um bilical 2011,2013,2017, Tonsillectomy and adenoidectomy
--- OUTSIDE RECORDS SUMMARY | 2025-02-04 21:26 | XMS_ITS | Clinical Summary ---
Author Organization [facility] Address [address] [place] [address] Care Team Providers Care Project Engineer Name Role Phone Unavailable Primary Care Provider [...] M, W, Th, Sat, Sun. Coumadin clinic [place] H. managing INR Active atorvastatin (LIPITOR) 20 [...] TWO TABLETS EVERY EVENING 450 tablet 3 Active Active Problems Problem Noted Date Diagnosed [...] Description 03/20/2025 7:50 AM EDT Office Visit [facility] [address] [place] [address] Zac Lal MD [address] [place] [address] [address] [place] [address] Health Maintenance Due Date Last Done Comments [...] to complete this topic Insurance [facility]
--- OUTSIDE RECORDS SUMMARY | 2025-02-04 21:26 | XMS_ITS | Clinical Summary ---
Author Organization [facility], Address [address] [place] [address] Phone Care Team Providers Care Flight Crew Ordnanceman Name Role Phone Lennox Tsang MD Primary Care Provider Allergies No known active allergies Medications allopurinol (ZYLOPRIM) 300 MG tablet Take 300 mg by mouth 1 (one) time each day 08/03/2022 Active amoxicillin (AMOXIL) 875 MG tablet 09/28/2022 Active metOLazone 2.5 MG tablet 10/22/2022 Active metoprolol succinate XL (TOPROL XL) 50 MG 24 hr tablet Take 50 mg by mouth 1 (one) time each day in the morning 08/25/2022 Active torsemide (DEMADEX) 20 MG tablet Take 40 mg by mouth 1 (one) time each day 08/03/2022 Active spironolactone (Aldactone) 100 MG tabletIndicatio ns:Hypokalemia, Heart failure with normal ejection fraction (HCC) Take 1 tablet (100 mg total) by mouth in the morning and 1 tablet (100 mg total) in the evening. 180 tablet 3 07/24/2024 Active metFORMIN (GLUCOPHAGE) 1000 MG tablet Take 1,000 mg by mouth in the morning and 1,000 mg in the evening. Take with meals. Active atorvastatin (LIPITOR) 20 MG tablet Take 20 mg by mouth 1 (one) time each day Active Active Problems Problem Noted Date Diagnosed Date Obese class I 10/05/2024 History of aortic valve replacement 09/11/2024 Disorder of electrolytes 05/18/2023 Heart failure with normal ejection fraction 12/21 Hypokalemia 10/28/2022 Immunizations Immunization Administration Dates Next Due Moderna SARS-COV-2 03/19/2021,06/21/2020, 021 Social History Tobacco Use Types Packs/Day Years Used Date Smoking Tobacco: Never Assessed Tobacco Cessation:Counseling Given: Not Answered Sex and Gender Information Value Date Recorded Sex Assigned at Not on file Legal Sex Male 10:58 AM EDT Gender Identity Not on file Sexual Orientation Not on file Last Filed Vital Signs Vital Sign Reading Time Taken Comments Blood Pressure 118/72 10/05/2024 2:46 PM EDT Pulse 70 10/05/2024 2:46 PM EDT Temperature - - Respiratory Rate - - Oxygen Saturation - - Inhaled Oxygen Concentration - - Weight 88.9 kg (196 lb) 11/10/2023 3:41 PM EDT Height - - Body Mass Index - - Plan of Treatment Upcoming Encounters Date Type Department Care Team (Late st Contact Info) Description 10/03/2025 3:00 PM EDT Office Visit [facility] [address] [place] [address] Preet Valenzuela DO [address] [place] [address] Health Maintenance Due Date Last Done Comments Hepatitis B Vaccine (1 of 3 - 19+ 3-dose series) 01/29 Pneumococcal Vaccine: Peds ( 0 to 5 Years) and At-Risk Patients (6 to 49 Years) (1 of 2 - PCV) 01/29/1995 Influenza Vaccine (#1) 2025 Colorectal Cancer Screening: Annual FOBT 01/29/2025 Colorectal Cancer Screening: Colonoscopy 01/29/2025 Colorectal Cancer Screening: Sigmoidoscopy 01/29/[address] [place] [address] [facility] Care Teams Flight Crew Ordnanceman Relationship Specialty Start Date End Date Lennox Tsang MD [address] [place] [address] [address] [place] [address] PCP - General Internal Medicine 08/09/22
--- OUTSIDE RECORDS SUMMARY | 2025-02-04 21:26 | XMS_ITS | Encounter Summary ---
Author Organization [facility] Address [address] [place] [address] Phone Care Team Providers Care Leather Seasoner Name Role Phone Lennox Tsang MD Primary Care Provider [phone] Encounter Details Date Type Department Care Team (Late st Contact Info) Description 09/21/2023 Documentation Only [facility] [address] [place] [address] Preet Valenzuela DO [address] [place] [address] Social History Tobacco Use Types [...] Visit [facility] [address] [place] [address] Preet Valenzuela DO [address] [place] [address] documented as of this encounter Visit Diagnoses Not on filedocumented in this encounter Care Teams Leather Seasoner Relationship Specialty Start Date End Date Lennox Tsang MD [address] [place], [place] PCP - General Internal Medicine 08/09/22 documented as of this encounter
--- OUTSIDE RECORDS SUMMARY | 2025-02-04 21:26 | XMS_ITS | Encounter Summary ---
Author Organization [facility] Address [address] [place] [address] Phone Care Team Providers Care Banquet Waiter/Waitress Name Role Phone Lennox Tsang MD Primary Care Provider Encounter Details Date Type Department Care Team (Late st Contact Info) Description 01/06/2023 Documentation Only [facility] [address] [place] [id number] Preet Valenzuela DO [address] [place] [phone] Social History Tobacco Use Types Packs/Day Years [...] Visit [facility] [address] [place] [place] [phone] Preet Valenzuela DO [address] [place] [phone] Scheduled Orders Name Type Priority Associated Diagnoses [...] 10:08 AM EST) Creatinine, Urine 165.1 MG/DL [facility] Comment: Testing performed or reported by [facility], a Service of [facility], [address] [place] [id number] Stephen Buckley MD, Formulation Scientist CLIA# [id number] Urine specimen (specimen) Urine specimen obtained by clean catch procedure / Unknown 06/01/2023 10:08 AM EST 06/01/2023 10:34 AM EST Preet McKinstry [facility] URINE ORDERABLES Final Resu lt Performing Organization Address [facility] Co de Phone Number [facility] * (ABNORMAL) PTH, intact (06/01/2023 10:08 AM EST) PTH, Intact 124(H) (15-65) PG/ML [facility] Comment: Testing performed or reported by [facility], a Service of [facility], [address] [place] [id number] Stephen Buckley MD, Formulation Scientist CLIA# [id number] Blood specimen (specimen) Venous blood / Unknown 06/01/2023 10:08 AM EST 06/01/2023 10:33 AM EST Preet McKinstry [facility] BLOOD ORDERABLES Final Resu lt Performing Organization Address City/[facility]/ZIP Co de Phone Number [facility] documented in this encounter Visit Diagnoses Diagnosis Hypercalcemia- Primary documented in this encounter Care Teams Banquet Waiter/Waitress Relationship Specialty Start Date End Date Lennox Tsang MD [address] [place], [place] PCP - General Internal Medicine 08/09/22 documented as of this encounter
--- OUTSIDE RECORDS SUMMARY | 2025-02-04 21:26 | XMS_ITS | Encounter Summary ---
Author Organization [facility] Address [address] [place] [address] Phone Care Team Providers Care Bulk Tank Car Unloader Name Role Phone Lennox Tsang MD Primary Care Provider Encounter Details Date Type Department Care Team (Late st Contact Info) Description 10/05/2024 Orders Only [facility] [address] [place] [address] Preet Valenzuela DO [address] [place] [address] Hypokalemia; Heart failure with normal [...] [facility] [address] [place] [address] Preet Valenzuela DO [address] [place] [address] documented as of this encounter Visit Diagnoses Diagnosis Hypokalemia Heart failure with normal ejection fraction (HCC) Hypercalcemia documented in this encounter Care Teams Bulk Tank Car Unloader Relationship Specialty Start Date End Date Lennxo Tsang MD [address] [place] [address] [address] [place] PCP - General Internal Medicine 08/09/22 documented as of this encounter
--- OUTSIDE RECORDS SUMMARY | 2025-02-04 21:26 | XMS_ITS | Patient Health Record ---
Author Organization Lennox Tsang MD Address [address] [place], [place] [id number] Care Team Providers Care Healthcare Administration Intern Name Role Phone Lennox Tsang Primary Care Provider [phone] Allergies Allergen (clinical drug ingredient) Drug/Non Drug Allergy documented on EMR Reaction Allergy Type Onset Date Status ibuprofen Ibuprofen bleeding Drug Allergy Active Results Component Value Reference Range Notes Liver Panel Reviewed date:07/30/2024 06:02:36 PM Interpretation: Performing Lab:[facility], [address] [place] [phone] Notes/Report: Bilirubin Total 0.7 0.0-1.0 mg/dL Bilirubin Direct 0.2 0.0-0.5 mg/dL Aspartate Amino Transferase 29 5-37 U/L Alanine Aminotransferase 32 0-40 U/L Total Protein 7.8 6.5-8.0 g/dL Albumin Level 4.2 3.5-5.0 g/dL Alkaline Phosphatase 91 39-117 U/L Blood Urea Nitrogen Reviewed date:07/30/2024 06:02:51 PM Interpretation: Performing Lab:[facility], [address] [place] [phone] Notes/Report: Blood Urea Nitrogen 27 9-16 mg/dL Creatinine Reviewed date:07/30/2024 06:02:43 PM Interpretation: Performing Lab:[facility], [address] [place] [phone] Notes/Report: Creatinine 1.25 0.5-1.4 mg/dL Estimated Glomerular Filt Rate > 60 Chronic Kidney Disease: Estimated GFR < 60 mL/min/1.73m2 Severe Kidney Disease: Estimated GFR < 15 mL/min/1.73m2 Lipid Panel Reviewed date:07/30/2024 06:02:22 PM Interpretation: Performing Lab:[facility], [address] [place] [phone] Notes/Report: Triglycerides 217 <150 mg/dL Desirable Triglyceride: [...] low results in patients with liver disease. Liver Panel Reviewed date:11/02/2024 12:41:22 PM Interpretation: Performing Lab:[facility], [address] [place] [phone] Notes/Report: Bilirubin Total 0.6 0.0-1.0 mg/dL Bilirubin Direct 0.2 0.0-0.5 mg/dL Aspartate Amino Transferase 45 5-37 U/L Slight Hemolysis.Interpret result with caution. Alanine Aminotransferase 31 0-40 U/L Total Protein 8.1 6.5-8.0 g/dL Albumin Level 4.9 3.5-5.0 g/dL Alkaline Phosphatase 85 39-117 U/L Lipid Panel with Reflex Reviewed date:11/02/2024 12:41:04 PM Interpretation: Performing Lab:[facility], [address] [place] [phone] Notes/Report: Triglycerides 176 <150 mg/dL Desirable Triglyceride: [...] low results in patients with liver disease. XR ribs LT min 3V w CXR1V Reviewed date:05/31/2024 01:01:03 PM Interpretation:see back 05-31-2024 Performing Lab: Notes/Report: [address] [address] XRay Report Signed Patient: Armen Olson MR#: [id number] : 1975 Acct:[id number] Age/Sex: 49 / M ADM Date: 05/30/24 Loc: HO.LAB Attending Dr: Lennox Tsang MD Ordering Physician: Lennox Tsang MD Date of Service: 05/30/24 Procedure(s): XR ribs LT min 3V w CXR1V Accession Number(s): [id number] cc: Lennox Tsang MD CLINICAL HISTORY: FELL ON STAIRS 5 view, chest and left ribs Comparison: None Findings: Minimally displaced left 5th lateral rib fracture. Central vascular prominence with diffuse interstitial opacities. No significant pleural effusion or pneumothorax. Prominent cardiac silhouette. Median sternotomy wires and clips. Annuloplasty ring. IMPRESSION: 1. Findings suggestive of pulmonary edema versus atypical infection. 2. Minimally displaced left 5th lateral rib fracture. This document has been electronically signed by: Wilder Mcduffie MD on 05/30/2024 07:03:45 Dictated By: Wilder Mcduffie MD Signed By: <Electronically signed by Wilder Mcduffie MD in OV> 05/30/24704 DD/ 2 TD/TT: 05/30/24702 Clerk Travel Reservations: [address] [address] XRay Report Signed Patient: Armen Olson MR #: [id number] : 1975 Acct:[id number] Age/Sex: 49 / M ADM Date: 05/30/24 Loc: HO.LAB Attending Dr: Lennox Tsang MD Ordering Physician: Lennox Tsang MD Date of Service: 05/30/24 Procedure(s): XR rib s LT min 3V w CXR1V Accession Number(s): [id number] cc: Lennox Tsang MD CLINICAL HISTORY: FE LL ON STAIRS 5 view, chest and le ft ribs Comparison: None Findings: Minimally displaced left 5th lateral rib fracture. Central vascular prominence with diffuse interstitial opacities. No significant pleur al effusion or pneumothorax. Prominent cardiac silhouette. Median sternotomy wi res and clips. Annuloplasty ring. IMPRESSION: 1. Findings suggesti ve of pulmonary edema versus atypical infection. 2. Minimally displac ed left 5th lateral rib fracture. This document has be en electronically signed by: Wilder Mcduffie MD on 05/30/2024 07:03:45 Dictated By: Wilder Mcduffie MD Signed By: <Electronically signed by Wilder Mcduffie MD in OV> 05/30/24704 DD/ 2 TD/TT: 05/30/24 07 Clerk Travel Reservations: INR WHOLE BLOOD POC Reviewed date:02/10/2024 02:23:34 PM Interpretation: Performing Lab:[facility], [address] [place] [phone] Notes/Report: PT, INR - [facility] 1.7 0.9-1.1 METER #: [id number] INTERNATIONAL NORMALIZED RATIO (INR) REFERENCE RANGES Reference [...] OC Reviewed date:02/10/2024 02:23:26 PM Interpretation: Performing Lab:[facility], [address] [place] [phone] Notes/Report: Prothrombin Time Whole Bld POC 20.0 11.1-13.5 sec INR WHOLE BLOOD POC Reviewed date:03/13/2024 11:32:09 AM Interpretation: Performing Lab:[facility], [address] [place] [phone] Notes/Report: PT, INR - [facility] 2.0 0.9-1.1 METER #: [id number] Doctor Notified INTERNATIONAL NORMALIZED RATIO (INR) REFERENCE [...] OC Reviewed date:03/13/2024 11:32:17 AM Interpretation: Performing Lab:[facility], [address] [place] [phone] Notes/Report: Prothrombin Time Whole Bld POC 24.5 11.1-13.5 sec Raudel Costa Reviewed date:07/30/2024 12:44:46 PM Interpretation: Performing Lab:[facility], [address] [place] [phone] Notes/Report: Raudel Costa See Note Specimen held untested for 24 hours; Call to request Chemistry testing. INR WHOLE BLOOD POC Reviewed date:08/16/2024 10:45:38 AM Interpretation: Performing Lab:[facility], [address] [place] [phone] Notes/Report: PT, INR - [facility] 4.0 0.9-1.1 METER #: [id number] INTERNATIONAL NORMALIZED RATIO (INR) REFERENCE RANGES Reference [...] Prothrombin Time Whole Bld P OC Reviewed date:08/16/2024 10:45:10 AM Interpretation: Performing Lab:[facility], [address] [place] [phone] Notes/Report: Prothrombin Time Whole Bld POC 48.1 11.1-13.5 sec INR WHOLE BLOOD POC Reviewed date:10/12/2024 12:18:05 PM Interpretation: Performing Lab:[facility], [address] [place] [phone] Notes/Report: PT, INR - [facility] 3.8 0.9-1.1 METER #: [id number] INTERNATIONAL NORMALIZED RATIO (INR) REFERENCE RANGES Reference [...] Prothrombin Time Whole Bld P OC Reviewed date:10/12/2024 12:17:08 PM Interpretation: Performing Lab:[facility], [address] [place] [phone] Notes/Report: Prothrombin Time Whole Bld POC 45.0 11.1-13.5 sec INR WHOLE BLOOD POC Reviewed date:10/25/2024 12:36:37 PM Interpretation: Performing Lab:[facility], [address] [place] [phone] Notes/Report: PT, INR - [facility] 3.8 0.9-1.1 METER #: [id number] INTERNATIONAL NORMALIZED RATIO (INR) REFERENCE RANGES Reference [...] Prothrombin Time Whole Bld P OC Reviewed date:10/25/2024 12:38:11 PM Interpretation: Performing Lab:[facility], [address] [place] [phone] Notes/Report: Prothrombin Time Whole Bld POC 45.1 11.1-13.5 sec Hold Gold Reviewed date:11/02/2024 12:40:55 PM Interpretation: Performing Lab:[facility], [address] [place] [phone] Notes/Report: Hold Gold See Note Specimen held untested for 24 hours; Call to request Chemistry testing. INR WHOLE BLOOD POC Reviewed date:11/09/2024 12:09:03 PM Interpretation: Performing Lab:[facility], [address] [place] [phone] Notes/Report: PT, INR - [facility] 2.5 0.9-1.1 METER #: [id number] INTERNATIONAL NORMALIZED RATIO (INR) REFERENCE RANGES Reference [...] Prothrombin Time Whole Bld P OC Reviewed date:11/09/2024 04:30:54 PM Interpretation: Performing Lab:[facility], [address] [place] [phone] Notes/Report: Prothrombin Time Whole Bld POC 29.5 11.1-13.5 sec INR WHOLE BLOOD POC Reviewed date:11/20/2024 10:24:22 AM Interpretation: Performing Lab:[facility], [address] [place] [phone] Notes/Report: PT, INR - [facility] 4.1 0.9-1.1 METER #: [id number] INTERNATIONAL NORMALIZED RATIO (INR) REFERENCE RANGES Reference [...] Prothrombin Time Whole Bld P OC Reviewed date:11/20/2024 10:24:14 AM Interpretation: Performing Lab:[facility], [address] [place] [phone] Notes/Report: Prothrombin Time Whole Bld POC 49.3 11.1-13.5 sec INR WHOLE BLOOD POC Reviewed date:12/04/2024 12:19:35 PM Interpretation: Performing Lab:[facility], [address] [place] [phone] Notes/Report: PT, INR - [facility] 4.9 0.9-1.1 METER #: [id number] INTERNATIONAL NORMALIZED RATIO (INR) REFERENCE RANGES Reference [...] Prothrombin Time Whole Bld P OC Reviewed date:12/04/2024 12:19:18 PM Interpretation: Performing Lab:[facility], [address] [place] [phone] Notes/Report: Prothrombin Time Whole Bld POC 58.7 11.1-13.5 sec INR WHOLE BLOOD POC Reviewed date:12/18/2024 12:43:44 PM Interpretation: Performing Lab:[address] [phone] Notes/Report: PT, INR - [facility] 3.9 0.9-1.1 METER #: [id number] INTERNATIONAL NORMALIZED RATIO (INR) REFERENCE RANGES Reference [...] Prothrombin Time Whole Bld P OC Reviewed date:12/18/2024 12:43:52 PM Interpretation: Performing Lab:[facility], [address] [place] [phone] Notes/Report: Prothrombin Time Whole Bld POC 47.0 11.1-13.5 sec INR WHOLE BLOOD POC Reviewed date:12/24/2024 04:37:33 PM Interpretation: Performing Lab:[facility], [address] [place] [phone] Notes/Report: PT, INR - [facility] 2.0 0.9-1.1 METER #: [id number] INTERNATIONAL NORMALIZED RATIO (INR) REFERENCE RANGES Reference [...] Prothrombin Time Whole Bld P OC Reviewed date:12/24/2024 04:37:23 PM Interpretation: Performing Lab:[facility], [address] [place] [phone] Notes/Report: Prothrombin Time Whole Bld POC 24.3 11.1-13.5 sec INR WHOLE BLOOD POC Reviewed date:12/31/2024 05:48:15 PM Interpretation: Performing Lab:[facility], [address] [place] [phone] Notes/Report: PT, INR - [facility] 2.6 0.9-1.1 METER #: [id number] INTERNATIONAL NORMALIZED RATIO (INR) REFERENCE RANGES Reference [...] Prothrombin Time Whole Bld P OC Reviewed date:12/31/2024 05:45:34 PM Interpretation: Performing Lab:[facility], [address] [place] [phone] Notes/Report: Prothrombin Time Whole Bld POC 30.8 11.1-13.5 sec INR WHOLE BLOOD POC Reviewed date:01/15/2025 02:51:48 PM Interpretation: Performing Lab:[facility], [address] [place] [phone] Notes/Report: PT, INR - [facility] 3.4 0.9-1.1 METER #: [id number] INTERNATIONAL NORMALIZED RATIO (INR) REFERENCE RANGES Reference [...] Prothrombin Time Whole Bld P OC Reviewed date:01/15/2025 04:43:48 PM Interpretation: Performing Lab:[facility], [address] [place] [phone] Notes/Report: Prothrombin Time Whole Bld POC 41.4 11.1-13.5 sec INR WHOLE BLOOD POC Reviewed date:02/04/2025 04:43:47 PM Interpretation: Performing Lab:[facility], [address] [place] [phone] Notes/Report: PT, INR - [facility] 3.3 0.9-1.1 METER #: [id number] INTERNATIONAL NORMALIZED RATIO (INR) REFERENCE RANGES Reference [...] Prothrombin Time Whole Bld P OC Reviewed date:02/04/2025 04:43:55 PM Interpretation: Performing Lab:[facility], [address] [place] [phone] Notes/Report: Prothrombin Time Whole Bld POC 39.4 11.1-13.5 sec Reason For Referral Reason HYPERPARATHYROIDISM TYPE 2 DIABETES WITHOUT COMPLICATION Diagnosis 1 Type 2 diabetes jaylene itus without complication, without long-term current use of insulin (E11.9) Diagnosis 2 Hyperparathyroidism (E21.3) Referral Organization Lennox Tsang MD Referring Provider First Name Lennox Referring Provider Last Name Sharan Referring Provider Speciality Internal M edicine Referred Provider Gerard De La Cruz Referred Provider Specialty Endocrinolog y General Notes Stella Ventura 06/08/2024 12:22:17 PM >RECENT PHONE CALL TO ENDO AND THEY REQUESTED THAT I REFAX THE REFERRAL TO A DIFFERENT NUMBER, Stella Ventura 07/13/2024 08:49:00 AM >OFFICE NOTE RECD FROM 07/12 VISIT@ [facility] Referral Priority Routine Referral Appointment Date 07/11/2024 Medications Medication SIG (Take, Route, Frequency, Duration) Notes Start Date End Date Status Torsemide 20 MG 2 tabs Q AM Orally Active Spironolactone 100 MG 1 tablet Orally BID Active Allopurinol 300 MG TAKE ONE TABLET BY MOUTH ONCE DAILY for 90 Active Albuterol Sulfate HFA 108 (90 Base) MCG/ACT 1 puff as needed Inhalation every 4 hrs for 30 days 05/06/2020 Active Colchicine 0.6 MG TAKE ONE TABLET TWO TIMES A DAY for 10 Active Atorvastatin Calcium 20 MG 1 tablet Oral ly Once a day for 90 days 04/30/2024 Active Metoprolol Succinate ER 50 MG 50mg Orally Once a day Activ e Diprolene AF 0.05 % 1 application Externally Once a day for 90 days 04/14/2020 Active Warfarin Sodium 5 MG 2 tabs Orally Once a day for 90 days Active Docusate Sodium 100 MG 1 capsule as need ed Orally twice a day Active Celecoxib 200 MG 1 capsule with food Orally Once a day for 90 days Not-Taking metFORMIN HCl 500 MG 2tablet with a meal Orally twice a day for 90 days Active Immunizations Vaccine Route Administration Date Status [...] 06/03/2014 Refused Fluarix Quadrivalent Unknown 02/21/2015 Others Social History Tobacco Use: Social History Observation [...] ast year? No Points 0 Interpretation Negative Problems Problem Type SNOMED Code ICD Code Onset Dates Problem Status W/U Status Risk Notes Problem 88201646 Rectal bleeding (K62.5) Active confirmed Problem Gout (36426420) Gout (M10.9) Active confirmed Problem Hypomagnesemia (531336601) Hypomagnesemia (E83.42) Active confirmed Problem Hypercalcemia (07670459) Hypercalcemia (E83.52) Active confirmed Problem 902183699 Other ascites (R18.8) Active confirme d Problem 4048648696807 Aortic valve prosthesis present (Z95.2) Active confirmed Problem 358006673 Chronic systolic congestive heart failure (I50.22) Active confirmed Problem 77895879 Obstructive slee p apnea syndrome (G47.33) Active confirmed Problem 14654210 Hyperparathyroid ism (E21.3) Active confirmed Problem 08684765 Intrinsic eczema (L20.84) Active confirmed Problem 852745271 Leukocytosis, unspecified type (D72.829) Active confirmed Problem 69139632 Arthralgia, unspecified joint (M25.50) Active confirmed Problem 98099963 Cardiac asthma (I50.1) Active confirmed Problem 443924626 Fatty liver (K76.0) Active confirmed Problem Chronic systolic heart failure (732944920) Chronic systolic CHF (congestive heart failure) (I50.22) Active confirmed Problem 59134794 Hypercholesterem ia (E78.00) Active confirmed Problem 409881549 Type 2 diabetes mellitus without complication, without long-term current use of insulin (E11.9) Active confirmed Problem 441742001 Mild intermitten t asthmatic bronchitis with acute exacerbation (J45.21) Active confirmed Problem 462124926739714 Acute drug-induc ed gout of foot, unspecified laterality (M10.279) Active confirmed Problem 875080807 Obesity (BMI 35.0-39.9 without comorbidity) (E66.9) Active confirmed Vital Signs Blood pressure diastolic 70 mm Hg 08/06/2024 tanya ght is up 3 pounds since 05-31-24 Height 64 in 08/06/2024 weight is up 3 pounds since 05-31-24 Blood pressure systolic 102 mm Hg 08/06/2024 weig ht is up 3 pounds since 05-31-24 Weight 218 lbs 08/06/2024 weight is up 3 pounds since 05-31-24 BMI 37.42 kg/m2 08/06/2024 weight is up 3 pounds since 05-31-24 Encounters Encounter Location Date Provider Diagnosis Lennox Tsang MD [address] [place] [id number] 02/27/2024 Lennox Tsang Encounter for immunization Z23 Lennox Tsang MD [address] [place] [address] [id number] 07/30/2024 Lennox Tsang Hyperparathyroidism E21.3 Lennox Tsang MD [address] [place] [id number] 11/02/2024 Lennox Tsang Hypercholesteremia E 78.00 Lennox Tsang MD [address] [place] [address] [id number] 04/30/2024 Lennox Nairardimarlene Hyperparathyroidism E21.3 ; Encounter for general adult medical examination without abnormal findings Z00.00 ; Hypercholesteremia E78.00 and Chronic systolic congestive heart failure I50.22 Lennox Tsang MD [address] [place] [address] [id number] 05/29/2024 Lennox Tsang Fall on stairs, init ial encounter W10.9XXA and Closed fracture of one rib of left side, initial encounter S22.32XA Lennox Tsang MD [address] [place] [address] [id number] 05/31/2024 Lennox Tsang Chronic systolic congestive heart failure I50.22 Lennox Tsang MD [address] [place] [address] [id number] 08/06/2024 Lennox Tsang Chronic systolic congestive heart failure I50.22 ; Obstructive sleep apnea syndrome G47.33 ; Aortic valve prosthesis present Z95.2 and Hypercholesteremia E78.00 Lennox Tsang MD [address] [place] [address] [id number] 08/03/2024 Lennox Tsang MD [address] [place] [address] [id number] 08/06/2024 Lennox Tsang MD [address] [place] [address] [id number] 02/23/2024 Lennox Tsang MD [address] [place] [address] [id number] 02/23/2024 Lennox Tsang MD [address] [place] [address] [id number] 05/28/2024 Lennox Tsang MD [address] [place] [address] [id number] 05/30/2024 Lennox Tsang MD [address] [place] [address] [id number] 07/18/2024 Lennox Tsang MD [address] [place] [address] [id number] 07/20/2024 Lennox Tsang COVID-19 U07.1 Lennox Tsang MD [address] [place] [address] [id number] 07/23/2024 Lennox Tsang MD [address] [place] [address] [id number] 07/23/2024 Lennox Tsang MD [address] [place] [address] [id number] 09/10/2024 Lennox Tsang MD [address] [place] [address] [id number] 09/15/2024 Lennox Tsang MD [address] [place] [address] [id number] 01/01/2025 Lennox Tsang MD [address] [place] [address] [id number] 01/28/2025 Lennox Tsang Hypercholesteremia E 78.00 Lennox Tsang MD [address] [place] [address] [id number] 01/28/2025 Lennox Tsang Assessments Encounter Date Diagnosis (ICD Code) Assessment Notes Treatment Notes Treatment Clinical Notes Section Notes 02/27/2024 Encounter for immunization (ICD-10 - Z23) lot # [id number] exp 11-19-2024 07/30/2024 Hyperparathyroidism (ICD-10 - E21.3) 11/02/2024 Hypercholesteremia (ICD-10 - E78.00) 04/30/2024 Hyperparathyroidism (ICD-10 - E21.3) [facility]/ REFERRAL MADE TO ENDOCRINE , WILL FAX AFTER CASE LOCKED 04/30/2024 Encounter for genera l adult medical examination without abnormal findings (ICD-10 - Z00.00) Labs reviewed and discussed with patient 05/29/2024 Fall on stairs, init ial encounter (ICD-10 - W10.9XXA) pending diagnostic testing, order faxed to [facility] Patient Reg 05/29/2024 Closed fracture of o ne rib of left side, initial encounter (ICD-10 - S22.32XA) 05/31/2024 Chronic systolic congestive heart failure (ICD-10 - I50.22) have him take extra 20 mg of torsemide/ cxr showed question chf vers atypical pneumonia. no evidence to suggest pneumonia 08/06/2024 Chronic systolic congestive heart failure (ICD-10 - I50.22) stable, will continue current regiment 07/20/2024 COVID-19 (ICD-10 - U07.1) 01/28/2025 Hypercholesteremia (ICD-10 - E78.00) 04/30/2024 Hypercholesteremia (ICD-10 - E78.00) 08/06/2024 Obstructive sleep ap agnieszka syndrome (ICD-10 - G47.33) using cpap 04/30/2024 Chronic systolic congestive heart failure (ICD-10 - I50.22) 08/06/2024 Aortic valve prosthe sis present (ICD-10 - Z95.2) has been doing well 08/06/2024 Hypercholesteremia (ICD-10 - E78.00) Plan Of Treatment Pending Test Test Name Order Date Electrocardiogram (EKG) 10/20/2012 Electrocardiogram (EKG) 02/10/2018 XR CHEST 2 VIEW PA & LAT 05/25/2022 Next Appt Details Provider Name:Lennox Reyes ier, 04/26/2025 07:00:00 AM, [address] [place] [address], [address], [phone], Provider Name:Lennox Reyes ier, 05/03/2025 02:30:00 PM, [address] [place] [address], [place] [address], [place], [place], [phone], Insurance Providers Payer Name Payer Address Payer Phone Subscriber Number Group Number Insured Name Patient Relationship to Insured Coverage Start Date Coverage End Date [address] [place] [address] [id number] ; [id number] Armen Olson Self - patient is the insured Medical (General) History Medical History History ICD Code Hx of Umbilical Hernia discussed colonoscopy and he wants to wait: 11/24/22 colonoscopy tubular adenoma. repeat in 5 years Prediabetes R73.09 Surgical History Surgery Date(Month/Year) aortic valve replacement 2001 cervical spine fusion
--- OUTSIDE RECORDS SUMMARY | 2025-02-04 21:26 | XMS_ITS | Encounter Summary ---
Author Organization [facility], Address [address] [place] [address] Phone Care Team Providers Care Laborer Yard Name Role Phone Lennox Tsang MD Primary Care Provider Reason for Visit * Reason Comments Med Refill Encounter Details Date Type Department Care Team (Late st Contact Info) Description 08/29/2023 Refill [facility] [address] [place] [address] Preet Valenzuela DO [address] [place] [address] Hypokalemia; Heart failure with normal [...] [facility] [address] [place] [address] Preet Valenzuela DO [address] [place] [address] documented as of this encounter Visit Diagnoses Diagnosis Hypokalemia Heart failure with normal ejection fraction (HCC) documented in this encounter Care Teams Laborer Yard Relationship Specialty Start Date End Date Lennox Tsang MD [id number] [place], [place] PCP - General Internal Medicine 08/09/22 documented as of this encounter
== END 2025-02-04 16:35 | disposition home or self-care (01) ==
LOC: HO.ACS 16:20
PROVIDERS: PCP Internal Medicine; Visit Provider Internal Medicine Medical Oncology
DX: Z79.01 Long term (current) use of anticoagulants (principal)

== ENCOUNTER → 2025-02-04 16:20 | Outpatient (BNVA) | payer OTHER, SELFPAY | PROVIDERS: PCP Internal Medicine; Visit Provider Internal Medicine Medical Oncology | DX: Z95.2 Presence of prosthetic heart valve (principal); Z79.01 Long term (current) use of anticoagulants; Z51.81 Encounter for therapeutic drug level monitoring | CPT/HCPCS: 85610; 99211 ==

== ENCOUNTER 2025-02-25 16:18 | Outpatient (AMB) | payer OTHER, SELFPAY ==
--- OUTSIDE RECORDS SUMMARY | 2024-11-02 03:15 | XMS_ITS ---
Author Organization Lennox Tsang MD Address [address] [place], [place] [phone] Care Team Providers Care Chocolate Maker Name Role Phone Lennox Tsang Primary Care Provider Results Component Value Reference Range Notes Liver Panel Reviewed date:11/02/2024 12:41:22 PM Interpretation: Performing Lab:[facility], [address] [place] [phone] Notes/Report: Bilirubin Total 0.6 0.0-1.0 mg/dL Bilirubin Direct 0.2 0.0-0.5 mg/dL Aspartate Amino Transferase 45 5-37 U/L Slight Hemolysis.Interpret result with caution. Alanine Aminotransferase 31 0-40 U/L Total Protein 8.1 6.5-8.0 g/dL Albumin Level 4.9 3.5-5.0 g/dL Alkaline Phosphatase 85 39-117 U/L Lipid Panel with Reflex Reviewed date:11/02/2024 12:41:04 PM Interpretation: Performing Lab:[facility], [address] [place] [phone] Notes/Report: Triglycerides 176 <150 mg/dL Desirable Triglyceride: [...] Location Date Provider Diagnosis Lennox Tsang MD [address] [place] [address] [address] [place] [phone] 11/02/2024 Lennox Tsang Hypercholesteremia E 78.00 Assessments Encounter Date Diagnosis (ICD Code) Assessment Notes Treatment Notes Treatment Clinical Notes Section Notes 11/02/2024 Hypercholesteremia (ICD-10 - E78.00) Plan Of Treatment Next Appt Details Provider Name:Lennox white, 04/26/2025 07:00:00 AM, [address] [place] [address], Suite [facility], [place], [place], [phone], Provider Name:Lennox white, 05/03/2025 02:30:00 PM, [address] [place] [address], Suite [facility], [place], [place], [phone], Progress Notes * EMELY, IanOB:1975 (50 yo M)Acc No.[id number]:11/02/2024 Progress Note Patient: Armen HAWKINS Provider: Remy Tsang MD :1975 A ge:49 Y S ex:Male Date:11/02/2024 Address:[address] [place], [place] [phone] Subjective: * Chief Complaints: * 1 . [...] 0 11/02/2024 Generated for Gabriela velazquez/Sarah/Nahid on: 1 06:30 PM EDT
--- OUTSIDE RECORDS SUMMARY | 2025-01-01 10:51 | XMS_ITS ---
Author Organization Lennox Tsang MD Address [address] [place] [phone] Care Team Providers Care Fire Fighters Dispatcher Name Role Phone Lennox Tsang Primary Care Provider REASON FOR VISIT Appointments Encounters Encounter Location Date Provider Diagnosis Lennox Tsang MD [address] [place] [address] [place] [address] [phone] 01/01/2025 Lennox Tsang Plan Of Treatment Next Appt Details Provider Name:Lenonx Reyes ier, 04/26/2025 07:00:00 AM, [address] [place] [address], [address], [phone], Provider Name:Lennox Reyes ier, 05/03/2025 02:30:00 PM, [address] [place] [address], [phone], Progress Notes * Ian HANOB:1975 (49 yo M)Acc No.[id number]:01/01/2025 Patient: Rob CarrTashaMagene :1975 A ge:49 Y S ex:Male Address:[address] [place] [address], [address], [place] [address] * true * Date: Generated for Printi ng/Faxing/eTransmitting on: 06:29 PM EDT
--- OUTSIDE RECORDS SUMMARY | 2025-01-28 05:33 | XMS_ITS ---
Author Organization Lennox Tsang MD Address [address] [place] [phone] Care Team Providers Care Singer Songwriter Name Role Phone Lennox Tsang Primary Care Provider [phone] REASON FOR VISIT New Refill Request Medications Medication SIG (Take, Route, Frequency, Duration) Notes Start Date End Date Status Atorvastatin Calcium 20 MG 1 tablet Oral ly Once a day for 90 days 04/30/2024 Active Warfarin Sodium 5 MG 2 tabs Orally Once a day for 90 days Active Encounters Encounter Location Date Provider Diagnosis Lennox Tsang MD [address] [place] [address] [place] [phone] 01/28/2025 Lennox Tsang Hypercholesteremia E 78.00 Assessments [...] Details Provider Name:Lennox white, 04/26/2025 07:00:00 AM, [address] [place] [address], [address], [phone], Provider Name:Lennox white, 05/03/2025 02:30:00 PM, [address] [place] [address], [address], [phone], Progress Notes * Ian HANOB:1975 (49 yo M)Acc No.[id number]:01/28/2025 Patient: Armen HAWKINS :1975 A ge:49 Y S ex:Male Address:[address] [place] [address], [facility] [address], [place] [address] * Refills Refill Atorvastatin Calcium Tablet, 20 MG, Orally, 90 Tablet, 1 tablet, Once a day, 90 days, Refills=3 Refill Warfarin Sodium Tablet, 5 MG, Orally, 180 Tablet, 2 tabs, Once a day, 90 days, Refills=4 * true * Date: Generated for Gabriela velazquez/Sarah/Annabellaitting on: 06:30 PM EDT
--- OUTSIDE RECORDS SUMMARY | 2025-01-28 05:36 | XMS_ITS ---
Author Organization Lennox Tsang MD Address [address] [place] [address] [place] [phone] Care Team Providers Care Registered Nursing Professor Name Role Phone Lennox Tsang Primary Care Provider [phone] REASON FOR VISIT Refill Request Encounters Encounter Location Date Provider Diagnosis Lennox Tsang MD [address] [place] [address] [place] [address] [phone] 01/28/2025 Lennox Tsang Plan Of Treatment Next Appt Details Provider Name:Lennox Reyes ierob, 04/26/2025 07:00:00 AM, [address] [place] [address], [address], [phone], Provider Name:Lennox Reyes ier, 05/03/2025 02:30:00 PM, [address] [place] [address], [phone], Progress Notes * Ian HANOB:1975 (49 yo M)Acc No.[id number]:01/28/2025 Patient: Rob CarrTashaArmen :1975 A ge:49 Y S ex:Male Address:[address] [place] [address], [address], [place] [address] * true * Date: Generated for Printi ng/Faxing/eTransmitting on: 06:29 PM EDT
--- OUTSIDE RECORDS SUMMARY | 2025-02-07 00:45 | XMS_ITS ---
Author Organization Lennox Tsang MD Address [address] [place] [address] [place] [phone] Care Team Providers Care Hose Tubing Backer Name Role Phone Lennox Tsang Primary Care Provider [phone] REASON FOR VISIT 6 MO F/U Encounters Encounter Location Date Provider Diagnosis Lennox Tsang MD [address] [place] [address] [place] [phone] 02/07/2025 Lennox Tsang Plan Of Treatment Next Appt Details Provider Name:Lennox white, 04/26/2025 07:00:00 AM, [address] [place] [address], [address], [phone], Provider Name:Lennox white, 05/03/2025 02:30:00 PM, [address] [place] [address], [phone], Progress Notes * Ian HANOB:1975 (50 yo M)Acc No.[id number]:02/07/2025 Progress Notes Patient: Armen HAWKINS Provider: Remy Tsang MD :1975 A ge:50 Y S ex:Male Date:02/07/2025 Address:[address] [place] [address], [address], [place], [place] Subjective: * Chief Complaints: * 1 . [...] 02/07/2025 Generated for Gabriela velazquez/Sarah/Nahid on: 1 06:30 PM EDT
[2025-02-25 16:25] LABS: Prothrombin Time Whole Bld POC 31.4 sec (11.1-13.5); ~PT, ~INR - Anti Coag Clinic 2.6 (0.9-1.1)
--- NOTE | 2025-02-25 16:29 | MHC.OFFVISCO ---
Intake Intake Visit Reasons: Anticoagulation Allergies No Known Allergies Allergy (Verified 02/25/25 16:19) Medication List - Last Reconciled 02/25/25 by Mishel Logan RN albuterol sulfate 90 mcg/actuation 0 mcg inhalation allopurinol 300 mg PO DAILY atorvastatin 20 mg PO QPM colchicine 0.6 mg PO BID PRN metformin ER 1,000 mg PO BID metolazone mg PO metoprolol succinate ER 50 mg PO DAILY spironolactone 100 mg PO BID torsemide 40 mg PO DAILY [VITAMIN D 3 PO] warfarin 5 mg See Protocol PO DAILY Nursing Note INR: 2.6 in therapeutic range Medications and supplements reviewed No changes in medications, or supplements, * pt states he is eating healthier and has been eating more greens * Apr 15 pt having parathyroid surgery - not sure at this time if removal , biopsy or both, he will see Dr Blancas 03/20/25 for instructions regarding his warfarin lovenox bridge Denies any signs and symptoms of bleeding or bruising or clotting. 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
--- OUTSIDE RECORDS SUMMARY | 2025-02-25 18:29 | XMS_ITS | Encounter Summary ---
Author Organization [facility] Address [address] [place] [address] Phone Care Team Providers Care Mortgage Sales Manager Name Role Phone Lennox Tsang MD Primary Care Provider [phone] Encounter Details Date Type Department Care Team (Late st Contact Info) Description 08/09/2024 Documentation Only [facility] [address] [place] [address] Preet Valenzuela DO [address] [place] [address] Social History Tobacco Use Types [...] Visit [facility] [address] [place] [address] Preet Valenzuela DO [address] [place] [address] documented as of this encounter Visit Diagnoses Not on filedocumented in this encounter Care Teams Mortgage Sales Manager Relationship Specialty Start Date End Date Lennox Tsang MD [address] [place], [place] PCP - General Internal Medicine 08/09/22 documented as of this encounter
--- OUTSIDE RECORDS SUMMARY | 2025-02-25 18:29 | XMS_ITS | Encounter Summary ---
Author Organization [facility] [place] Address [address] [place] [address] Phone Care Team Providers Care Python Web Developer Name Role Phone Lennox Tsang MD Primary Care Provider Encounter Details Date Type Department Care Team (Late st Contact Info) Description 08/09/2022 Documentation Only [facility] [address] [place] [address] Lennox Tsang MD [address] [place] [address] [address] [place] [address] Social History Tobacco Use Types Packs/Day Years [...] Visit [facility] [address] [place] [address] Preet Valenzuela DO [address] [facility] [address] [place] [address] documented as of this encounter Visit Diagnoses Not on filedocumented in this encounter Care Teams Python Web Developer Relationship Specialty Start Date End Date Lennox Tsang MD [address] [place] [address] [place] [address] PCP - General Internal Medicine 08/09/22 documented as of this encounter
--- OUTSIDE RECORDS SUMMARY | 2025-02-25 18:29 | XMS_ITS | Encounter Summary ---
Author Organization [facility] Address [address] [place] [address] Phone Care Team Providers Care Livestock Caretaker Name Role Phone Lennox Tsang MD Primary Care Provider [phone] Encounter Details Date Type Department Care Team (Late st Contact Info) Description 01/27/2024 Orders Only [facility] [address] [place] [address] Preet Valenzuela DO [address] [facility] [address] [place] [address] Hypokalemia; Heart failure with normal [...] Visit [facility] [address] [place] [address] Preet Valenzuela DO [address] [facility] [address] [place] [address] documented as of this encounter [...] Magnesium 1.6 1.6 - 2.3 mg/dL [facility] Blood specimen (specimen) Venous blood / Unknown 03/21/2024 9:00 AM EDT 03/21/2024 us Preet Valenzuela DO LAB BLOOD ORDERABLES Final Resu lt [facility] [address] [place] [address] * (ABNORMAL) Renal Function Panel (03/21/2024 9:00 AM EDT) Glucose 112(H) 70 - 99 mg/dL [facility] BUN 23 6 - 24 mg/dL [facility] Creatinine 1.23 0.76 - 1.27 mg/dL [facility] eGFR CKD-EPI CR 2020 72 >59 mL/min/1.7 3 [facility] BUN/Creatinine Ratio 19 9 - 20 [facility] Sodium 136 134 - 144 mmol/L [facility] Potassium 5.1 3.5 - 5.2 mmol/L [facility] Chloride 95(L) 96 - 106 mmol/L [facility] Bicarbonate (CO2) 21 20 - 29 mmol/L [facility] Calcium 9.7 8.7 - 10.2 mg/dL [facility] Phosphorus 2.3(L) 2.8 - 4.1 mg/dL [facility] Albumin 4.5 4.1 - 5.1 g/dL [facility] Blood specimen (specimen) Venous blood / Unknown 03/21/2024 9:00 AM EDT 03/21/2024 us Preet Valenzuela DO LAB BLOOD ORDERABLES Final Resu lt [facility] [address] [place] [phone] documented in this encounter Visit Diagnoses Diagnosis Hypokalemia Heart failure with normal ejection fraction (HCC) Hypercalcemia documented in this encounter Care Teams Livestock Caretaker Relationship Specialty Start Date End Date Lennox Tsang MD [address] [place] [address] [address] [place], [place] PCP - General Internal Medicine 08/09/22 documented as of this encounter
--- OUTSIDE RECORDS SUMMARY | 2025-02-25 18:29 | XMS_ITS | Encounter Summary ---
Author Organization [facility] Address [address] [place] [address] Phone Care Team Providers Care Fuel Cell Designer Name Role Phone Lennox Tsang MD Primary Care Provider Encounter Details Date Type Department Care Team (Late st Contact Info) Description 04/20/2024 Orders Only [facility] [address] [place] [address] Preet Vaelnzuela DO [address] [facility] [place] [address] Hypokalemia; Heart failure with normal [...] [facility] [address] [place] [address] Preet Valenzuela DO [address] [address] [place] [address] documented as of this encounter Visit Diagnoses Diagnosis Hypokalemia Heart failure with normal ejection fraction (HCC) Hypercalcemia documented in this encounter Care Teams Fuel Cell Designer Relationship Specialty Start Date End Date Lennox Tsang MD [address] [place] [address] [address] [place] PCP - General Internal Medicine 08/09/22 documented as of this encounter
--- OUTSIDE RECORDS SUMMARY | 2025-02-25 18:30 | XMS_ITS | Patient Health Record ---
Author Organization Lennox Tsang MD Address [address] [place], [place] [id number] Care Team Providers Care Solar Water Heater Installer Name Role Phone Lennox Tsang Primary Care Provider Allergies Allergen (clinical drug ingredient) Drug/Non Drug Allergy documented on EMR Reaction Allergy Type Onset Date Status ibuprofen Ibuprofen bleeding Drug Allergy Active Results Component Value Reference Range Notes Liver Panel Reviewed date:07/30/2024 06:02:36 PM Interpretation: Performing Lab:[facility], [address] [place] [phone] Notes/Report: Bilirubin Total 0.7 0.0-1.0 mg/dL Bilirubin Direct 0.2 0.0-0.5 mg/dL Aspartate Amino Transferase 29 5-37 U/L Alanine Aminotransferase 32 0-40 U/L Total Protein 7.8 6.5-8.0 g/dL Albumin Level 4.2 3.5-5.0 g/dL Alkaline Phosphatase 91 39-117 U/L Blood Urea Nitrogen Reviewed date:07/30/2024 06:02:51 PM Interpretation: Performing Lab:[facility], [address] [place] [phone] Notes/Report: Blood Urea Nitrogen 27 9-16 mg/dL Creatinine Reviewed date:07/30/2024 06:02:43 PM Interpretation: Performing Lab:[facility], [address] [place] [phone] Notes/Report: Creatinine 1.25 0.5-1.4 mg/dL Estimated Glomerular Filt Rate > 60 Chronic Kidney Disease: Estimated GFR < 60 mL/min/1.73m2 Severe Kidney Disease: Estimated GFR < 15 mL/min/1.73m2 Lipid Panel Reviewed date:07/30/2024 06:02:22 PM Interpretation: Performing Lab:[facility], [address] [place] [phone] Notes/Report: Triglycerides 217 <150 mg/dL Desirable Triglyceride: [...] Panel Reviewed date:11/02/2024 12:41:22 PM Interpretation: Performing Lab:[facility], [address] [place] [phone] Notes/Report: Bilirubin Total 0.6 0.0-1.0 mg/dL Bilirubin Direct 0.2 0.0-0.5 mg/dL Aspartate Amino Transferase 45 5-37 U/L Slight Hemolysis.Interpret result with caution. Alanine Aminotransferase 31 0-40 U/L Total Protein 8.1 6.5-8.0 g/dL Albumin Level 4.9 3.5-5.0 g/dL Alkaline Phosphatase 85 39-117 U/L Lipid Panel with Reflex Reviewed date:11/02/2024 12:41:04 PM Interpretation: Performing Lab:[facility], [address] [place] [phone] Notes/Report: Triglycerides 176 <150 mg/dL Desirable Triglyceride: [...] PM Interpretation:see back 05-31-2024 Performing Lab: Notes/Report: [address] [address] XRay Report Signed Patient: Armen Olson MR#: [id number] : 1975 Acct:[id number] Age/Sex: 49 / M ADM Date: 05/30/24 Loc: HO.LAB Attending Dr: Lennox Tsang MD Ordering Physician: Lennox Tsang MD Date of Service: 05/30/24 Procedure(s): XR ribs LT min 3V w CXR1V Accession Number(s): [id number] cc: Lennox Tsang MD CLINICAL HISTORY: FELL [...] in OV> 05/30/24704 DD/ 2 TD/TT: 05/30/24702 Hands And Dial Inspector: [address] [address] XRay Report Signed Patient: Armen Olson MR #: [id number] : 1975 Acct:[id number] Age/Sex: 49 / M ADM Date: 05/30/24 Loc: HO.LAB Attending Dr: Lennox Tsang MD Ordering Physician: Lennox Tsang MD Date of Service: 05/30/24 Procedure(s): XR rib s LT min 3V w CXR1V Accession Number(s): [id number] cc: Lennox Tsang MD CLINICAL HISTORY: FE [...] OV> 05/30/24704 DD/ 2 TD/TT: 05/30/24 07 Hands And Dial Inspector: INR WHOLE BLOOD POC Reviewed date:03/13/2024 11:32:09 AM Interpretation: Performing Lab:[facility], [address] [place] [phone] Notes/Report: PT, INR - [facility] 2.0 0.9-1.1 METER #: [id number] Doctor Notified INTERNATIONAL NORMALIZED RATIO (INR) REFERENCE [...] OC Reviewed date:03/13/2024 11:32:17 AM Interpretation: Performing Lab:[facility], [address] [place] [phone] Notes/Report: Prothrombin Time Whole Bld POC 24.5 11.1-13.5 sec Hold Gold Reviewed date:07/30/2024 12:44:46 PM Interpretation: Performing Lab:[facility], [address] [place] [phone] Notes/Report: Raudel Costa See Note Specimen held untested for 24 hours; Call to request Chemistry testing. INR WHOLE BLOOD POC Reviewed date:08/16/2024 10:45:38 AM Interpretation: Performing Lab:[facility], [address] [place] [phone] Notes/Report: PT, INR - [facility] 4.0 0.9-1.1 METER #: [id number] INTERNATIONAL NORMALIZED RATIO (INR) REFERENCE RANGES Reference [...] OC Reviewed date:08/16/2024 10:45:10 AM Interpretation: Performing Lab:[facility], [address] [place] [phone] Notes/Report: Prothrombin Time Whole Bld POC 48.1 11.1-13.5 sec INR WHOLE BLOOD POC Reviewed date:10/12/2024 12:18:05 PM Interpretation: Performing Lab:[facility], [address] [place] [phone] Notes/Report: PT, INR - [facility] 3.8 0.9-1.1 METER #: [id number] INTERNATIONAL NORMALIZED RATIO (INR) REFERENCE RANGES Reference [...] OC Reviewed date:10/12/2024 12:17:08 PM Interpretation: Performing Lab:[facility], [address] [place] [phone] Notes/Report: Prothrombin Time Whole Bld POC 45.0 11.1-13.5 sec INR WHOLE BLOOD POC Reviewed date:10/25/2024 12:36:37 PM Interpretation: Performing Lab:[facility], [address] [place] [phone] Notes/Report: PT, INR - [facility] 3.8 0.9-1.1 METER #: [id number] INTERNATIONAL NORMALIZED RATIO (INR) REFERENCE RANGES Reference [...] OC Reviewed date:10/25/2024 12:38:11 PM Interpretation: Performing Lab:[facility], [address] [place] [phone] Notes/Report: Prothrombin Time Whole Bld POC 45.1 11.1-13.5 sec Hold Gold Reviewed date:11/02/2024 12:40:55 PM Interpretation: Performing Lab:[facility], [address] [place] [phone] Notes/Report: Hold Gold See Note Specimen held untested for 24 hours; Call to request Chemistry testing. INR WHOLE BLOOD POC Reviewed date:11/09/2024 12:09:03 PM Interpretation: Performing Lab:[facility], [address] [place] [phone] Notes/Report: PT, INR - [facility] 2.5 0.9-1.1 METER #: [id number] INTERNATIONAL NORMALIZED RATIO (INR) REFERENCE RANGES Reference [...] OC Reviewed date:11/09/2024 04:30:54 PM Interpretation: Performing Lab:[facility], [address] [place] [phone] Notes/Report: Prothrombin Time Whole Bld POC 29.5 11.1-13.5 sec INR WHOLE BLOOD POC Reviewed date:11/20/2024 10:24:22 AM Interpretation: Performing Lab:[facility], [address] [place] [phone] Notes/Report: PT, INR - [facility] 4.1 0.9-1.1 METER #: [id number] INTERNATIONAL NORMALIZED RATIO (INR) REFERENCE RANGES Reference [...] OC Reviewed date:11/20/2024 10:24:14 AM Interpretation: Performing Lab:[facility], [address] [place] [phone] Notes/Report: Prothrombin Time Whole Bld POC 49.3 11.1-13.5 sec INR WHOLE BLOOD POC Reviewed date:12/04/2024 12:19:35 PM Interpretation: Performing Lab:[facility], [address] [place] [phone] Notes/Report: PT, INR - [facility] 4.9 0.9-1.1 METER #: [id number] INTERNATIONAL NORMALIZED RATIO (INR) REFERENCE RANGES Reference [...] OC Reviewed date:12/04/2024 12:19:18 PM Interpretation: Performing Lab:[facility], [address] [place] [phone] Notes/Report: Prothrombin Time Whole Bld POC 58.7 11.1-13.5 sec INR WHOLE BLOOD POC Reviewed date:12/18/2024 12:43:44 PM Interpretation: Performing Lab:[facility], [address] [place] [phone] Notes/Report: PT, INR - [facility] 3.9 0.9-1.1 METER #: [id number] INTERNATIONAL NORMALIZED RATIO (INR) REFERENCE RANGES Reference [...] OC Reviewed date:12/18/2024 12:43:52 PM Interpretation: Performing Lab:[facility], [address] [place] [phone] Notes/Report: Prothrombin Time Whole Bld POC 47.0 11.1-13.5 sec INR WHOLE BLOOD POC Reviewed date:12/24/2024 04:37:33 PM Interpretation: Performing Lab:[address] [phone] Notes/Report: PT, INR - [facility] 2.0 0.9-1.1 METER #: [id number] INTERNATIONAL NORMALIZED RATIO (INR) REFERENCE RANGES Reference [...] OC Reviewed date:12/24/2024 04:37:23 PM Interpretation: Performing Lab:[facility], [address] [place] [phone] Notes/Report: Prothrombin Time Whole Bld POC 24.3 11.1-13.5 sec INR WHOLE BLOOD POC Reviewed date:12/31/2024 05:48:15 PM Interpretation: Performing Lab:[facility], [address] [place] [phone] Notes/Report: PT, INR - [facility] 2.6 0.9-1.1 METER #: [id number] INTERNATIONAL NORMALIZED RATIO (INR) REFERENCE RANGES Reference [...] OC Reviewed date:12/31/2024 05:45:34 PM Interpretation: Performing Lab:[facility], [address] [place] [phone] Notes/Report: Prothrombin Time Whole Bld POC 30.8 11.1-13.5 sec INR WHOLE BLOOD POC Reviewed date:01/15/2025 02:51:48 PM Interpretation: Performing Lab:[facility], [address] [place] [phone] Notes/Report: PT, INR - [facility] 3.4 0.9-1.1 METER #: [id number] INTERNATIONAL NORMALIZED RATIO (INR) REFERENCE RANGES Reference [...] OC Reviewed date:01/15/2025 04:43:48 PM Interpretation: Performing Lab:[facility], [address] [place] [phone] Notes/Report: Prothrombin Time Whole Bld POC 41.4 11.1-13.5 sec INR WHOLE BLOOD POC Reviewed date:02/04/2025 04:43:47 PM Interpretation: Performing Lab:[facility], [address] [place] [phone] Notes/Report: PT, INR - [facility] 3.3 0.9-1.1 METER #: [id number] INTERNATIONAL NORMALIZED RATIO (INR) REFERENCE RANGES Reference [...] OC Reviewed date:02/04/2025 04:43:55 PM Interpretation: Performing Lab:[facility], [address] [place] [phone] Notes/Report: Prothrombin Time Whole Bld POC 39.4 11.1-13.5 sec INR WHOLE BLOOD POC (Not yet reviewed by provider) Interpretation: Performing Lab:[facility], [address] [place] [phone] Notes/Report: PT, INR - Anti Coag Clinic 2.6 0.9-1.1 METER #: [id number] INTERNATIONAL NORMALIZED RATIO (INR) REFERENCE RANGES Reference [...] 3.5 Prothrombin Time Whole Bld P OC (Not yet reviewed by provider) Interpretation: Performing Lab:[facility], [address] [place] [address], [place] [address] Notes/Report: Prothrombin Time Whole Bld POC 31.4 11.1-13.5 sec Reason For Referral Reason HYPERPARATHYROIDISM [...] Problem Status W/U Status Risk Notes Problem 76974898 Rectal bleeding (K62.5) Active confirmed Problem Gout (32636474) Gout (M10.9) Active confirmed Problem Hypomagnesemia (956265610) Hypomagnesemia (E83.42) Active confirmed Problem Hypercalcemia (37980482) Hypercalcemia (E83.52) Active confirmed Problem 655738979 Other ascites (R18.8) Active confirme d Problem 5856811161694 Aortic valve prosthesis present (Z95.2) Active confirmed Problem 559678738 Chronic systolic congestive heart failure (I50.22) Active confirmed Problem 57994366 Obstructive slee p apnea syndrome (G47.33) Active confirmed Problem 32575538 Hyperparathyroid ism (E21.3) Active confirmed Problem 80548838 Intrinsic eczema (L20.84) Active confirmed Problem 744061979 Leukocytosis, unspecified type (D72.829) Active confirmed Problem 07373009 Arthralgia, unspecified joint (M25.50) Active confirmed Problem 83686671 Cardiac asthma (I50.1) Active confirmed Problem 173684737 Fatty liver (K76.0) Active confirmed Problem Chronic systolic heart failure (411558891) Chronic systolic CHF (congestive heart failure) (I50.22) Active confirmed Problem 02402899 Hypercholesterem ia (E78.00) Active confirmed Problem 475757615 Type 2 diabetes mellitus without complication, without long-term current use of insulin (E11.9) Active confirmed Problem 226467773 Mild intermitten t asthmatic bronchitis with acute exacerbation (J45.21) Active confirmed Problem 831381770076463 Acute drug-induc ed gout of foot, unspecified laterality (M10.279) Active confirmed Problem 556638223 Obesity (BMI 35.0-39.9 without comorbidity) (E66.9) Active [...] Lennox Tsang MD [address] [place] [id number] 02/27/2024 Lennox Tsang Encounter for immunization Z23 Lennox Tsang MD [address] [place] [address] [id number] 07/30/2024 Lennox Tsang Hyperparathyroidism E21.3 Lennox Tsang MD [address] [place] [address] [id number] 11/02/2024 Lennox Tsang Hypercholesteremia E 78.00 Lennox Tsang MD [address] [place] [address] [id number] 04/30/2024 Lennox Tsang Hyperparathyroidism E21.3 ; Encounter for general adult medical examination without abnormal findings Z00.00 ; Hypercholesteremia E78.00 and Chronic systolic congestive heart failure I50.22 Lennox Tsang MD [address] [place] [id number] 05/29/2024 Lennox Tsang Fall on stairs, init ial encounter W10.9XXA and Closed fracture of one rib of left side, initial encounter S22.32XA Lennox Tsang MD [address] [place] [address] [id number] 05/31/2024 Lennox Tsang Chronic systolic congestive heart failure I50.22 Lennox Tsang MD [address] [place] [address] [id number] 08/06/2024 Lennox Tsang Chronic systolic congestive heart failure I50.22 ; Obstructive sleep apnea syndrome G47.33 ; Aortic valve prosthesis present Z95.2 and Hypercholesteremia E78.00 Lennox Tsang MD [address] [place] [address] [id number] 08/03/2024 Lennox Tsang MD [address] [place] [address] [id number] 08/06/2024 Lennox Tsang MD [address] [place] [address] [id number] 05/28/2024 Lennox Tsang MD [address] [place] [address] [id number] 05/30/2024 Lennox Tsang MD [address] [place] [address] [id number] 07/18/2024 Lennox Tsang MD [address] [place] [address] [id number] 07/20/2024 Lennox Tsang COVID-19 U07.1 Lennox Tsang MD [address] [place] [address] [id number] 07/23/2024 Lennox Tsang MD [address] [place] [address] [id number] 07/23/2024 Lennox Tsang MD [address] [place] [address] [id number] 09/10/2024 Lennox Tsang MD [address] [place] [address] [id number] 09/15/2024 Lennox Tsang MD [address] [place] [address] [id number] 01/01/2025 Lennox Tsang MD [address] [place] [address] [id number] 01/28/2025 Lennox Tsang Hypercholesteremia E 78.00 Lennox Tsang MD [address] [place] [address] [id number] 01/28/2025 Lennox Tsang Assessments Encounter Date Diagnosis (ICD Code) Assessment Notes Treatment Notes Treatment Clinical Notes Section Notes 02/27/2024 Encounter for immunization (ICD-10 - Z23) lot # [id number] 11-19-2024 07/30/2024 Hyperparathyroidism (ICD-10 - E21.3) 11/02/2024 Hypercholesteremia (ICD-10 - E78.00) 04/30/2024 Hyperparathyroidism (ICD-10 - E21.3) referral to [facility] endocrine/ REFERRAL MADE TO ENDOCRINE , WILL FAX AFTER CASE LOCKED 04/30/2024 Encounter for genera l adult medical examination without abnormal findings (ICD-10 - Z00.00) Labs reviewed and discussed with patient 05/29/2024 Fall on stairs, init ial encounter (ICD-10 - W10.9XXA) pending diagnostic testing, [place] [facility] [place] 05/29/2024 Closed fracture of o [...] CHEST 2 VIEW PA & LAT 05/25/2022 INR WHOLE BLOOD POC 02/25/2025 Prothrombin Time Whole Bld POC Next Appt Details Provider Name:Lennox Reyes ier, 04/26/2025 07:00:00 AM, [address] [place] [address], [address], [phone], Provider Name:Lennox Reyes ier, 05/03/2025 02:30:00 PM, [address] [place] [address], [place] [address], [place], [place], [id number], Insurance Providers Payer Name Payer Address Payer Phone Subscriber Number Group Number Insured Name Patient Relationship to Insured Coverage Start Date Coverage End Date [address] [place] [address] [id number] ; [id number] Armen Olson Self - patient is the insured Medical (General) History Medical History History ICD Code Hx of Umbilical Hernia discussed colonoscopy and he wants to wait: 11/24/22 colonoscopy tubular adenoma. repeat in 5 years Prediabetes R73.09 Surgical History Surgery Date(Month/Year) aortic valve replacement 2001 cervical spine fusion
--- OUTSIDE RECORDS SUMMARY | 2025-02-25 18:30 | XMS_ITS | Patient Health Record ---
Author Organization [facility] Address [address] [place] [address] Care Team Providers Care Classroom Instructor Name Role Phone eLnnox Tsang Primary Care Provider Unavailab le Allergies [...] Status Risk Notes Problem Atherosclerosis of artery (856131602) Arterial atherosclerosis (I70.8) Active confirmed Plan Of Treatment Pending Test Test Name Order Date EMIL 04/19/2022 Ultrasound : Artery Doppler Low Ext Bila t 04/19/2022 X ray : Foot, left 3v 04/19/2022 Insurance Providers Payer Name Payer Address Payer Phone Subscriber Number Group Number Insured Name Patient Relationship to Insured Coverage Start Date Coverage End Date [facility] [address] [place], [place] [phone] [id number] Armen Olson Self - patient is the [...]
--- OUTSIDE RECORDS SUMMARY | 2025-02-25 18:30 | XMS_ITS | Encounter Summary ---
Author Organization [facility] Address [address] [place] [address] Phone Care Team Providers Care Head Of Strategy Name Role Phone Lennox Tsang MD Primary Care Provider [phone]- [phone] Encounter Details Date Type Department Care Team (Late st Contact Info) Description 09/21/2023 Documentation Only [facility] [address] [place] [address] Preet Valenzuela DO [address] [place] [address] Social History Tobacco Use Types [...] Visit [facility] [address] [address] Preet Valenzuela DO [address] [place] [address] documented as of this encounter Visit Diagnoses Not on filedocumented in this encounter Care Teams Head Of Strategy Relationship Specialty Start Date End Date Lennox Tsang MD [address] [place], [place] PCP - General Internal Medicine 08/09/22 documented as of this encounter
--- OUTSIDE RECORDS SUMMARY | 2025-02-25 18:30 | XMS_ITS | Encounter Summary ---
Author Organization [facility] Address [address] [place] [address] Phone Care Team Providers Care Seasonal Warehouse Associate Name Role Phone Lennox Tsang MD Primary Care Provider [phone]- [phone] Encounter Details Date Type Department Care Team (Late st Contact Info) Description 09/21/2023 Documentation Only [facility] [address] [place] [address] Preet Valenzuela DO [address] [place] [address] Social History Tobacco Use Types [...] [facility] [address] [place] [address] Preet Valenzuela DO [address] [place] [address] documented as of this encounter Visit Diagnoses Not on filedocumented in this encounter Care Teams Seasonal Warehouse Associate Relationship Specialty Start Date End Date Lennox Tsang MD [address] [place], [place] PCP - General Internal Medicine 08/09/22 documented as of this encounter
--- OUTSIDE RECORDS SUMMARY | 2025-02-25 18:31 | XMS_ITS | Encounter Summary ---
Author Organization [facility] Address [address] [place] [address] Phone Care Team Providers Care Aesthetician Name Role Phone Lennox Tsang MD Primary Care Provider Reason for Visit * Reason Comments Med Refill Encounter Details Date Type Department Care Team (Late st Contact Info) Description 08/29/2023 Refill [facility] [address] [place] [address] Preet Valenzuela DO [address] [place] [address] Hypokalemia; Heart failure with normal [...] Visit [facility] [address] [place] [address] Preet Valenzuela DO [address] [place] [address] documented as of this encounter Visit Diagnoses Diagnosis Hypokalemia Heart failure with normal ejection fraction (HCC) documented in this encounter Care Teams Aesthetician Relationship Specialty Start Date End Date Lennox Tsang MD [address] [place], [place] PCP - General Internal Medicine 08/09/22 documented as of this encounter
--- OUTSIDE RECORDS SUMMARY | 2025-02-25 18:31 | XMS_ITS | Clinical Summary ---
Author Organization Patient Business Ser [facility] Address [address] [place] [address] Care Team Providers Care Bobbin Drier Name Role Phone Unavailable Primary Care Provider [...] M, W, Th, Sat, Sun. Coumadin clinic [facility]. managing INR Active atorvastatin (LIPITOR) 20 [...] PVC (premature ventricular contraction) 06/02/19 21 Immunizations Immunization Administration Dates Next Due Moderna SARS-CoV-2 COVID-19, [...] Description 03/20/2025 7:50 AM EDT Office Visit [facility] [address] [place] [address] Zac Lal MD [address] [place] [address] [address] [place] [address] Health Maintenance Due Date Last Done Comments Colorectal Cancer Screening: Colonoscopy 1975 DTaP,Tdap,and Td Vaccines (1 - Tdap) 01/29/1995 Hepatitis B Vaccines (1 of 3 - 19+ 3-dose series) 01/29/1995 Cholesterol Screening (Lipid Panel) 01/22/2021 HIV Screening 01/22/2021 Hepatitis C Screening 01/22/2021 Social Influencers of Health Screening 01/22/2021 Pneumococcal Vaccine: Pediatrics (0 to 5 Years) and At-Risk Patients (6 to 49 Years) (2 of 2 - PCV) 04/03/2021 04/03/2020, 07/13/2016 Hypertension/CHF/CAD Annual BMP Blood Test 06/21/2023 Depression Screening 05/23/2024 Influenza Vaccine (#1) 2025 , 03/02/2023, 03/11/2022, Additional history exists RSV Immunization Adult Patients (1 - 1-dose 75+ series) 01/29/2051 COVID-19 Vaccine Completed 03/14/2024, , 06/21/2020, Additional [...] to complete this topic Insurance [facility]
--- OUTSIDE RECORDS SUMMARY | 2025-02-25 18:31 | XMS_ITS | Data Portability ---
Author Organization [place] - [facility], Allergy Address 100 [facility] 100 [place] [address] Care Team Providers Care Heel Wheeler Name Role Phone KHADIJAH GODWIN Primary Care Provider Assessment Encounter Date Assessment Date Assessment LastModified by Organization Details LastModified Time 10/08/2024 10/08/2024 49yo male presen ts for evaluation of [...] testing. Patient also evaluated by Dr. Winston. [email or web address] Not available 10/08/2024 12:06:26 10/23/2024 10/23/2024 49-year-old [...] in 6 months for routine cerumen debridement. [email or web address] Not available 10/23/2024 15:20:15 11/15/2024 11/15/2024 Discussed variou s types, models and levels of technology. Recommended [employer] Allure 440 XU R $2591. Patient is not interested in pursing due to limited finances. F/U PRN. [email or web address] Not available 11/15/2024 13:19:16 02/11/2025 02/11/2025 49-year-old male with longstanding left-sided sensorineural hearing loss and ETD presents for BOT evaluation. CT with 6mm BOT enhancement. FFL today did not reveal any concerning masses or lesions. The patient also does not have any significant risk factors for oropharyngeal cancer. We discussed options including repeat imaging versus repeat scopes in a serial fashion. He is agreeable to either of these. I would like to repeat scope him in 6 months. With a follow-up scan in 1 year from today. If this area is not growing then unlikely is a malignancy. Rest of exam is JENNIFER today. He does have some evidence of laryngopharyngeal reflux and hooding of the retinoids, we did discuss this and some antiacid therapy. - RV 6 months with repeat FFL, likely repeat CT 6 months later [email or web address] Not available 02/11/2025 10:17:18 Plan of Treatment Reminders Order Date Submit Date Provider Last Modified By Organization Details Last Modified Time Details Appointments Establish ed 15 2024 01:00P SHERI ARNOLD Not available Not available Not available Establish ed 15 2025 09:15A M Preet Gil DO Not available Not available Not available Lab [...] record ed. BARCODE Not Available 2024 15:37:00 02/12/20 25 11/09/2024 CT, neck, soft tissu e, w/wo contr ast No observ ation record ed. [email or web address] Not Available 01/22 10:28:57 Result Notes None recorded. Problems Name Problem SNOMED Code Status Onset Date Resolution Date Notes Provider Name and Address Organization Details Recorded Time Impacted cerumen of bilateral ears 8600002344021 108 Active 2024 WENDY PATEL PA-C [address] [facility],[address] [facility], [place], [address], [place] - [facility] [place] 5 12:06:34 Sensorineur al hearing loss of bilateral ears 801905107 Active 2024 JOHNATHON POZO, AUD [address] [facility], [place], [address], [place] - [facility] [place] 13:25:21 Impacted cerumen in left ear 7021578397236 101 Active 2024 WENDY PATEL PA-C [address] [facility],[address] [facility], [place], [address], [place] - [facility] [place] 15:20:29 Mass of tongue 301923919 Active 2024 Preet Gil, DO 100 [facility], [address] [facility], [place], [address], [place] - [facility] [place] 5 08:52:45 Problem Notes None recorded. Procedures Surgical History Date Name Laterality Status Provider Name and Address Organization Details Recorded Time 5 FOL_normal_DHL completed Preet Gil DO 100 [facility],[address], [address], [place] - [facility] 02/11/2025 10:15:38 5 Comp Audio with Tymps - 31035 & 15548 completed JOHNATHON POZO, AUD [address] [facility],[address], [address], [place] - [facility] 10/23/2024 13:25:16 5 Cerumen removal without microscope left completed WENDY PATEL PA-C [address] [place],[address], [address], [place] - [facility] 10/23/2024 15:21:03 05/19/202 5 Cerumen removal with microscope bilateral completed WENDY PATEL PA-C [address], [address], [facility] - [facility] 10/08/2024 10:40:11 Imaging Results None recorded. Procedure Notes None recorded. Medical Equipment None Reported. Medications Name Sig Start Date Stop Date Status Note LastModified by Organization Details LastModified Time metolazone 2.5 mg tablet TAKE 1 TABLET BY MOUTH THREE TIMES A WEEK active Not Available Not Available No t Available metformin 500 mg tablet active Not Available Not Available Not Available atorvastatin 20 mg tablet TAKE 1 TABLET BY MOUTH EVERY DAY active Not Available Not Available No t Available torsemide 20 mg tablet active Not [...] mg tablet TAKE 2 TABLETS BY MOUTH DAILY WITH FOOD OR MILK FOR 5 DAYS active Not Available Not Available No t Available spironolacto ne 100 mg tablet TAKE 1 TABLET BY MOUTH EVERY MORNING AND 1 TABLET IN THE EVENING. active Not Available Not Available No t Available benzonatate 100 mg capsule TAKE 1 CAPSULE BY MOUTH 3 TIMES A DAY FOR 7 DAYS active Not Available Not Available No t Available warfarin 5 mg tablet TAKE 2 TABLETS BY MOUTH EVERY DAY active Not Available Not Available No t Available allopurinol 300 mg tablet TAKE 1 TABLET BY MOUTH EVERY DAY active Not Available Not Available No t Available albuterol sulfate HFA 90 mcg/actuatio n aerosol inhaler active Not Available Not Available Not Available colchicine 0.6 mg tablet active Not Available Not Available Not Available fluticasone propionate 50 mcg/actuatio n nasal spray,suspen tonya USE 1 SPRAY IN EACH NOSTRIL TWICE A DAY active Not Available Not Available No t Available metformin ER 500 mg tablet,exten ded release 24 hr active Not Available Not Available Not Available Vitals Date Recorded Body weight Body mass index (BMI) Body height Provider Name and Address Organization Details Last Updated DateTime 10/08/2024 55028.77 g 36.7 kg/m2 162.56 cm Kim Galo [place] - [facility] 10/08/2024 10:13:37 Date Recorded Body height Body mass index (BMI) Body weight Provider Name and Address Organization Details Last Updated DateTime 10/23/2024 162.56 cm 36.9 kg/m2 77949.36 g Agustina Reyes [facility] 10/23/2024 13:45:09 Date Recorded Body height Body mass index (BMI) Body weight Provider Name and Address Organization Details Last Updated DateTime 02/11/2025 162.56 cm 36.9 kg/m2 32670.36 g Jose Garcia [facility] 02/11/2025 09:31:06 Social History Question Answer Notes LastModified by Organizat ion Details LastModified Time Tobacco Smoking Status Never Smoker Kim boyle [facility] 10/08/2024 10:14:11 What Type Of Chamber Walker Do You Use? None Information not available 10/08/2024 Do You Have Any Pets? No [email or web address] Information not available 10/08/2024 Are You Passively Exposed To Smoke? No [email or web address] Information not available 10/08/2024 Are There Any Smokers In Your House? No [email or web address] Information not available 10/08/2024 Sex: Unknown Functional Status Question Answer Note LastModified by Organization Details LastModified Time Do you use any illicit or recreational drugs? No Information not available 10/08/2024 Do you or have you ever used any other forms of tobacco or nicotine? No [email or web address] Information not available 10/08/2024 What is your level of alcohol consumption? 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 noExposureToExcessiveNoise [email or web address] Infor mation not available 10/08/2024 Mental Status None recorded. Family History Nothing Reported. Medical History Condition Response Allergies/Hayfever N Heart Problems Y Anxiety N Tonsil Infections N Emphysema N Migraines N Thyroid Problems Y Glaucoma N Developmental Delay N Depression N COPD N Nasal or Sinus Problems N Anemia N Immune System Disorder N Anesthesia Complications N Heart Attack (AR) N Other Skin Condition N Diabetes Y [...] Diagnosis SNOMED-CT Code Diagnosis ICD10 Code Diagnosis IMO Codes Diagnosis Note [id number] WENDY PATEL PA-C [facility] [address] [address] 10/08/2024 09:55:54 10/08/2024 10:46:57 Impacted cerumen of bilateral ears 9948839615 868674 H61.23 025589 Hearing lo ss of left ear 540636732 H91.92 33565890 [id number] WENDY PATEL PA-C [facility] [address] [address] 10/23/2024 13:00:43 10/23/2024 14:37:47 Sensorineural hearing loss of bilateral ears 774101388 H90.3 96716082 Audiologic al evaluation results: 10/23/2024 Right ear: Normal through 3 kHz sloping to a mild sensorineu ral hearing loss with excellent word recognitio n. Left ear: Mild rising to normal sloping to moderate sensorineu ral hearing loss with excellent word recognitio n. Tympanomet ry: Right Ear:Type Ad Left Ear:Type A Impacted c erumen in left ear 6861748161 978874 H61.22 1710041 [id number] STEVE CARRILLO HERNANDEZ - [address] [address] 11/15/2024 12:36:28 11/16/2024 13:07:37 Sensorineural hearing loss of bilateral ears 471790528 H90.3 40633638 [id number] Preet Gil DO [facility] [address] [address] 02/11/2025 09:25:36 02/11/2025 10:16:12 Sensorineural hearing loss of bilateral ears 737120295 H90.3 16859071 Impacted c erumen in left ear 9060345724 181851 H61.22 5409079 Mass of tongue 299496645 K14.8 6684720 6 mm base of tongue Health Concerns Section Related Observation LastModified by Organization Detai ls LastModified Time None Recorded Concern Status LastModified by Organization Details LastModified Time None Recorded Advance Directives Directive None Recorded Payers Insurance Date Sequence Insurance Name Policy Number Policy Reynaga Covered Member ID Reynaga Member ID Guarantor Name 02/11/2025 1 [facility] [id number] 3 Armen Olson [id number] Armen Olson Notes Date Note Type Note Provider Name and Address Organization Details Recorded Time 10/08/2024 text/html ROS as noted in the [facility] 49yo male presents for evaluation of the [...] cervical fusion, and SINA. He works at [employer]. BAYRON WINSTON MD [address] [place] [address], [phone], [facility] 10/08/2024 12:19:23 10/23/2024 text/html ROS as noted in the [facility] 49-year-old male with longstanding left-sided sensorineural hearing loss and ETD presents for hearing evaluation. He used to wear left-sided amplification, but could not tolerate. Most recent audiogram was 20 years ago. Denies tinnitus or vertigo. Denies ear pain or drainage. Denies recurrent ear infections or prior ear surgeries. No history of loud noise exposure. Occasional Q tip use. He works at [employer]. MAGALIS GAONA MD [address] [place] [address], [phone], [facility] 10/23/2024 16:09:53 11/15/2024 text/html Patient has a known asymmetrical SNHL >AD. He was recently cleared for amplification for his left ear. He has tried hearing aids in the past without much success. He feels he does fine without any amplification. JOHNATHON POZO, AUD 100 [facility],[place] [address], [place], [address], [facility] - [facility] 11/15/2024 13:19:38 02/11/2025 text/html ROS as noted in the HPI Interval history: The patient had a recent CT for evaluation of hyperparathyroidism. They noted that there was a poorly defined 6 mm hyperenhancing focus in the midline base of tongue as well as a 1.6 cm right thyroid nodule. CT was personally reviewed and interpreted and I agree with the above findings. There is a small right paramedian base of tongue mass with some uptake. No prior direct visualization. PV: 49-year-old male with longstanding left-sided sensorineural hearing loss and ETD presents for hearing evaluation. He used to wear left-sided amplification, but could not tolerate. Most recent audiogram was 20 years ago. Denies tinnitus or vertigo. Denies ear pain or drainage. Denies recurrent ear infections or prior ear surgeries. No history of loud noise exposure. Occasional Q tip use. He works at [employer]. Preet Gil, DO 100 [facility] [address], [place], [address], [facility] 02/11/2025 10:17:28
--- OUTSIDE RECORDS SUMMARY | 2025-02-25 18:31 | XMS_ITS | Encounter Summary ---
Author Organization [facility] Address [address] [place] [address] Phone Care Team Providers Care Microfilm Mounter Name Role Phone Lennox Tsang MD Primary Care Provider Encounter Details Date Type Department Care Team (Late st Contact Info) Description 07/13/2024 Orders Only [facility] [address] [place] [address] Preet Valenzuela DO [address] [facility] [place] [address] Hypokalemia; Heart failure with normal [...] Visit [facility] [address] [place] [address] Preet Valenzuela DO [address] [facility] [place] [address] documented as of this encounter Visit Diagnoses Diagnosis Hypokalemia Heart failure with normal ejection fraction (HCC) Hypercalcemia documented in this encounter Care Teams Microfilm Mounter Relationship Specialty Start Date End Date Lennox Tsang MD [address] [place] [address] [address] [place] PCP - General Internal Medicine 08/09/22 documented as of this encounter
--- OUTSIDE RECORDS SUMMARY | 2025-02-25 18:31 | XMS_ITS | Encounter Summary ---
Author Organization [facility] Address [address] [place] [address] Phone Care Team Providers Care Buffing Machine Operator Name Role Phone Lennox Tsang MD Primary Care Provider [phone] Encounter Details Date Type Department Care Team (Late st Contact Info) Description 09/01/2023 Documentation Only [facility] [address] [place] [address] Preet Valenzuela DO [address] [facility] [place] [address] Social History Tobacco Use Types [...] [facility] [address] [facility] [place] [address] Preet Valenzuela DO [address] [facility] [place] [address] documented as of this encounter Visit Diagnoses Not on filedocumented in this encounter Care Teams Buffing Machine Operator Relationship Specialty Start Date End Date Lennox Tsang MD [address] [facility] [facility] [address] [place], [place] PCP - General Internal Medicine 08/09/22 documented as of this encounter
--- OUTSIDE RECORDS SUMMARY | 2025-02-25 18:31 | XMS_ITS | Patient Health Record ---
Author Organization [facility] Address [address] [place] [address] Care Team Providers Care Brush Loader And Handle Attacher Name Role Phone Sharan DIAZ, Lennox Primary Care Provider Gurjit Goodman Unavailable [phone] Allergies No Known Allergies Reason For Referral [...] Problem Status W/U Status Risk Notes Problem 71028559 Rectal bleeding (K62.5) Active confirmed Problem 131011611 Encounter for screening for malignant neoplasm of colon (Z12.11) Active confirmed Problem Diverticular disease of colon (804348762) Diverticulosis of large intestine without perforation or abscess without bleeding (K57.30) Active confirmed Plan Of Treatment Pending Test Test Name Order Date Pathology 11/24/2022 Future Test Test Name Order Date COLONOSCOPY 10/01/2022 Insurance Providers Payer Name Payer Address Payer Phone Subscriber Number Group Number Insured Name Patient Relationship to Insured Coverage Start Date Coverage End Date [facility] [address] [place] [phone] [id number] SARINA HAN Self - patient is the insured Medical (General) History Medical History History ICD Code Denies SD,DM,CVA,Lung disease,renal dise ase 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 Lal in [place] Sleep apnea-CPAP Arrhythmia with PVC's Gout He describes that he has bee n told at [facility] that he is a difficult intubation Surgical History Surgery Date(Month/Year) Heart surgery for IHSS--his heart surgery in 2001 involved replacement of the aortic valve with a [employer]. Fuad's valve 1984,1988,2001 Cervical spine fusion C1-C5 1988 Hernia repair--Bilateral inguinal and um bilical 2011,2013,2017, Tonsillectomy and adenoidectomy
--- OUTSIDE RECORDS SUMMARY | 2025-02-25 18:31 | XMS_ITS | Clinical Summary ---
Author Organization [facility], Address [address] [address] Phone Care Team Providers Care Investment Strategist Name Role Phone Lennox Tsang MD Primary [...] Visit [facility] [address] [address] Preet Valenzuela DO [address] [place] [address] Health Maintenance Due Date Last [...] Screening: Sigmoidoscopy 01/29/[address] [place] [address] [facility] Care Teams Investment Strategist Relationship Specialty Start Date End Date Lennox Tsang MD [address] [place] [address] [address] [place] [address] PCP - General Internal Medicine 08/09/22
--- OUTSIDE RECORDS SUMMARY | 2025-02-25 18:31 | XMS_ITS | Encounter Summary ---
Author Organization [facility] Address [address] [place] [address] Phone Care Team Providers Care Monotype Machinist Name Role Phone Lennox Tsang MD Primary Care Provider Encounter Details Date Type Department Care Team (Late st Contact Info) Description 10/05/2024 Orders Only [facility] [address] [place] [address] Preet Valenzuela DO [address] [facility] [place] [address] Hypokalemia; Heart failure with normal [...] Visit [facility] [address] [place] [address] Preet Valenzuela DO [address] [facility] [place] [address] documented as of this encounter Visit Diagnoses Diagnosis Hypokalemia Heart failure with normal ejection fraction (HCC) Hypercalcemia documented in this encounter Care Teams Monotype Machinist Relationship Specialty Start Date End Date Lennox Tsang MD [address] [place] [address] [address] [place] PCP - General Internal Medicine 08/09/22 documented as of this encounter
--- OUTSIDE RECORDS SUMMARY | 2025-02-25 18:31 | XMS_ITS | Encounter Summary ---
Author Organization [facility] Address [address] [place] [address] Phone Care Team Providers Care Char Filter Operator Helper Name Role Phone Lennox Tsang MD Primary Care Provider Encounter Details Date Type Department Care Team (Late st Contact Info) Description 01/06/2023 Documentation Only [facility] [address] [place] [address] Preet Valenzuela DO [address] [facility] [place] [address] Social History Tobacco Use Types Packs/Day Years [...] Visit [facility] [address] [place] [address] Preet Valenzuela DO [address] [facility] [place] [address] Scheduled Orders Name Type Priority Associated Diagnoses [...] 10:08 AM EST) Creatinine, Urine 165.1 MG/DL [facility] Comment: Testing performed or reported by [facility], a Service of [facility], [address] [place] [id number] Stephen Buckley MD, Loan Interviewer CLIA# [id number] Urine specimen (specimen) Urine specimen obtained by clean catch procedure / Unknown 06/01/2023 10:08 AM EST 06/01/2023 10:34 AM EST Preet [facility] URINE ORDERABLES Final Resu lt Performing Organization Address [facility] Co de Phone Number [facility] * (ABNORMAL) PTH, intact (06/01/2023 10:08 AM EST) PTH, Intact 124(H) (15-65) PG/ML [facility] Comment: Testing performed or reported by [facility], a Service of [facility], [address] [place] [address] Stephen Buckley MD, Loan Interviewer CLIA# [id number] Blood specimen (specimen) Venous blood / Unknown 06/01/2023 10:08 AM EST 06/01/2023 10:33 AM EST Preet [facility] BLOOD ORDERABLES Final Resu lt Performing Organization Address City/[facility]/ZIP Co de Phone Number [facility] documented in this encounter Visit Diagnoses Diagnosis Hypercalcemia- Primary documented in this encounter Care Teams Char Filter Operator Helper Relationship Specialty Start Date End Date Lennox Tsang MD [address] [facility] [address] [place], [place] PCP - General Internal Medicine 08/09/22 documented as of this encounter
== END 2025-02-25 16:33 | disposition home or self-care (01) ==
LOC: HO.ACS 16:18
PROVIDERS: PCP Internal Medicine; Visit Provider Internal Medicine Medical Oncology
DX: Z79.01 Long term (current) use of anticoagulants (principal)

== ENCOUNTER → 2025-02-25 16:18 | Outpatient (BNVA) | payer OTHER, SELFPAY | PROVIDERS: PCP Internal Medicine; Visit Provider Internal Medicine Medical Oncology | DX: Z95.2 Presence of prosthetic heart valve (principal); Z79.01 Long term (current) use of anticoagulants; Z51.81 Encounter for therapeutic drug level monitoring | CPT/HCPCS: 85610; 99211 ==

== ENCOUNTER 2025-03-18 16:20 | Outpatient (AMB) | payer OTHER, SELFPAY ==
--- OUTSIDE RECORDS SUMMARY | 2024-08-03 07:03 | XMS_ITS ---
Author Organization Lennox Tsang MD Address [address] [place] [address] [place] [phone] Care Team Providers Care Client Director Name Role Phone Lennox Tsang Primary Care Provider [phone] REASON FOR VISIT FYI INR Encounters Encounter Location Date Provider Diagnosis Lennox Tsang MD [address] [place] [address] [place] [phone] 08/03/2024 Lennox Tsang Plan Of Treatment Next Appt Details Provider Name:Lennox Reyes ierob, 04/26/2025 07:00:00 AM, [address] [place] [address], [address], [phone], Provider Name:Lennox Reyes ier, 05/03/2025 02:30:00 PM, [address] [place] [address], [phone], Progress Notes * Ian HANOB:1975 (49 yo M)Acc No.[id number]:08/03/2024 Patient: Rob CarrTashaArmen :1975 A ge:49 Y S ex:Male Address:[address] [place] [address], [address], [place] [address] * true * Date: Generated for Printi ng/Faxing/eTransmitting on: 07:11 PM EDT
--- OUTSIDE RECORDS SUMMARY | 2024-08-06 05:30 | XMS_ITS ---
Author Organization Lennox Tsang MD Address [address] [place] [phone] Care Team Providers Care Spool Fixer Name Role Phone Lennox Tsang Primary Care Provider REASON FOR VISIT INR Encounters Encounter Location Date Provider Diagnosis Lennox Tsang MD [address] [place] [address] [place] [phone] 08/06/2024 Lennox Tsang Plan Of Treatment Next Appt Details Provider Name:Lennox Reyes ier, 04/26/2025 07:00:00 AM, [address] [place] [address], [address], [phone], Provider Name:Lennox Reyes ier, 05/03/2025 02:30:00 PM, [address] [place] [address], [phone], Progress Notes * Ian HANOB:1975 (49 yo M)Acc No.[id number]:08/06/2024 Patient: Rob CarrTashaMagene :1975 A ge:49 Y S ex:Male Address:[address] [place] [address], [address], [place] [address] * true * Date: Generated for Printi ng/Faxing/eTransmitting on: 07:10 PM EDT
--- OUTSIDE RECORDS SUMMARY | 2024-08-06 11:00 | XMS_ITS ---
Author Organization Lennox Tsang MD Address [address] [place], [place] [id number] Care Team Providers Care Concrete Pipe Plant Supervisor Name Role Phone Lennox Tsang Primary Care Provider [phone] Allergies Allergen (clinical drug ingredient) Drug/Non Drug [...] Location Date Provider Diagnosis Lennox Tsang MD [address] [place] [address] [place] [phone] 08/06/2024 Lennox Tsang Chronic systolic congestive heart [...] Reason: Provider Name:Lennox white, 04/26/2025 07:00:00 AM, [address] [place] [address], Suite [facility], [place], [place], [phone], Provider Name:Lennox white, 05/03/2025 02:30:00 PM, [address] [place] [address], [place] [address], [place], [place], [phone], Progress Notes * Ian HANOB:1975 (49 yo M)Acc No.[id number]:08/06/2024 Progress Notes Patient: Armen HAWKINS Provider: Remy Tsang MD :1975 A ge:49 Y S ex:Male Date:08/06/2024 Address:[address] [place] [address], [address] Subjective: * Chief Complaints: * 3 MO [...] 0 08/06/2024 Generated for Gabriela velazquez/Sarah/Annabellaitting on: 07:10 PM EDT History and Physical Notes * HPI (History [...]
--- OUTSIDE RECORDS SUMMARY | 2024-09-10 08:21 | XMS_ITS ---
Author Organization Lennox Tsang MD Address [address] [place] [phone] Care Team Providers Care Hand I Tube Bender Name Role Phone Lennox Tsang Primary Care Provider [phone] REASON FOR VISIT New Refill Request Medications Medication SIG (Take, Route, Fr equency, Duration) Notes Start Date End Date Status metFORMIN HCl 500 MG 2tablet with a meal Orally twice for 90 days Active Encounters Encounter Location Date Provider Diagnosis Lennox Tsang MD [address] [place] [address] [place] [phone] 09/10/2024 Lennox Tsang Plan Of Treatment Medication Medication Name Sig Start Date Stop Date Notes metFORMIN HCl 500 MG 2tablet with a meal Orally twice for 90 days Next Appt Details Provider Name:Lennox white, 04/26/2025 07:00:00 AM, [address] [place] [address], [phone], Provider Name:Lennox white, 05/03/2025 02:30:00 PM, [address] [place] [address], [phone], Progress Notes * Ian HANOB:1975 (49 yo M)Acc No.[id number]:09/10/2024 Patient: Armen HAWKINS :1975 A ge:49 Y S ex:Male Address:[address] [place] [address], [address], [place] [address] * Refills Refill metFORMIN HCl Tablet, 500 MG, Orally, 180, 2tablet with a meal, twice, 90 days, Refills=3 * true * Date: Generated for Gabriela velaqzuez/Sarah/Annabellaitting on: 07:10 PM EDT
--- OUTSIDE RECORDS SUMMARY | 2024-09-15 16:15 | XMS_ITS ---
Author Organization Lennox Tsang MD Address [address] [place] [phone] Care Team Providers Care Credit Administration Specialist Name Role Phone Lennox Tsang Primary Care Provider [phone] REASON FOR VISIT Metformin Refill Medications Medication SIG (Take, Route, Fr equency, Duration) Notes Start Date End Date Status metFORMIN HCl 500 MG 2tablet with a meal Orally twice a day for 90 days Active Encounters Encounter Location Date Provider Diagnosis Lennox Tsang MD [address] [place] [address] [place] [address] [phone] 09/15/2024 Lennox Tsang Plan Of Treatment Medication Medication Name Sig Start Date Stop Date Notes metFORMIN HCl 500 MG 2tablet with a meal Orally twice a day for 90 days Next Appt Details Provider Name:Lennox white, 04/26/2025 07:00:00 AM, [address] [place] [address], [phone], Provider Name:Lennox white, 05/03/2025 02:30:00 PM, [address] [place] [address], [phone], Progress Notes * Ian HANOB:1975 (49 yo M)Acc No.[id number]:09/15/2024 Patient: Armen HAWKINS :1975 A ge:49 Y S ex:Male Address:[address] [place] [address], [address], [place] [address] * Refills Refill metFORMIN HCl Tablet, 500 MG, Orally, 360 Tablet, 2tablet with a meal, twice a day, 90 days, Refills=3 * true * Date: Generated for Gabriela velazquez/Sarah/Nahid on: 1 07:10 PM EDT
--- OUTSIDE RECORDS SUMMARY | 2024-11-02 03:15 | XMS_ITS ---
Author Organization Lennox Tsang MD Address [address] [place], [place] [phone] Care Team Providers Care Airframe And Powerplant Mechanic Name Role Phone Lennox Tsang Primary Care Provider Results Component Value Reference Range Notes Liver Panel Reviewed date:11/02/2024 12:41:22 PM Interpretation: Performing Lab:[facility], [address] [place] [phone] Notes/Report: Bilirubin Total 0.6 0.0-1.0 mg/dL Bilirubin Direct 0.2 0.0-0.5 mg/dL Aspartate Amino Transferase 45 5-37 U/L Slight Hemolysis.Interpret result with caution. Alanine Aminotransferase 31 0-40 U/L Total Protein 8.1 6.5-8.0 g/dL Albumin Level 4.9 3.5-5.0 g/dL Alkaline Phosphatase 85 39-117 U/L Lipid Panel with Reflex Reviewed date:11/02/2024 12:41:04 PM Interpretation: Performing Lab:[facility], [address] [place] [phone] Notes/Report: Triglycerides 176 <150 mg/dL Desirable Triglyceride: [...] Date Provider Diagnosis Lennox Tsang MD [address] [place] [address] Drive [address] [place] [phone] 11/02/2024 Lennox Tsang Hypercholesteremia E 78.00 Assessments Encounter Date Diagnosis (ICD Code) Assessment Notes Treatment Notes Treatment Clinical Notes Section Notes 11/02/2024 Hypercholesteremia (ICD-10 - E78.00) Plan Of Treatment Next Appt Details Provider Name:Lennox white, 04/26/2025 07:00:00 AM, [address] [place] [address], Suite [facility], [place], [place], [phone], Provider Name:Lennox white, 05/03/2025 02:30:00 PM, [address] [place] [address], Suite [facility], [place], [place], [phone], Progress Notes * EMELY, IanOB:1975 (50 yo M)Acc No.[id number]:11/02/2024 Progress Note Patient: Armen HAWKINS Provider: Remy Tsang MD :1975 A ge:49 Y S ex:Male Date:11/02/2024 Address:[address] [place], [place] [phone] Subjective: * Chief Complaints: * 1 . [...] 11/02/2024 Generated for Gabriela velazquez/Sarah/Nahid on: 1 07:10 PM EDT
--- OUTSIDE RECORDS SUMMARY | 2025-01-01 10:51 | XMS_ITS ---
Author Organization Lennox Tsang MD Address [address] [place] [phone] Care Team Providers Care Business Development Manager Name Role Phone Lennox Tsang Primary Care Provider [phone] REASON FOR VISIT Appointments Encounters Encounter Location Date Provider Diagnosis Lennox Tsang MD [address] [place] [address] [place] [phone] 01/01/2025 Lennox Tsang Plan Of Treatment Next Appt Details Provider Name:Lennox Reyes ierob, 04/26/2025 07:00:00 AM, [address] [place] [address], [address], [phone], Provider Name:Lennox Reyes ier, 05/03/2025 02:30:00 PM, [address] [place] [address], [phone], Progress Notes * Ian HANOB:1975 (49 yo M)Acc No.[id number]:01/01/2025 Patient: Rob CarrTasha Armen :1975 A ge:49 Y S ex:Male Address:[address] [place] [address], [address], [place] [address] * true * Date: Generated for Printi ng/Faxing/eTransmitting on: 07:10 PM EDT
--- OUTSIDE RECORDS SUMMARY | 2025-01-28 05:33 | XMS_ITS ---
Author Organization Lennox Tsang MD Address [address] [place] [phone] Care Team Providers Care Injection Mold Technician Name Role Phone Lennox Tsang Primary Care [...] Location Date Provider Diagnosis Lennox Tsang MD [address] [place] [address] [place] [phone] 01/28/2025 Lennox Tsang Hypercholesteremia E 78.00 Assessments [...] Details Provider Name:Lennox white, 04/26/2025 07:00:00 AM, [address] [place] [address], [address], [phone], Provider Name:Lennox white, 05/03/2025 02:30:00 PM, [address] [place] [address], [address], [phone], Progress Notes * Ian HANOB:1975 (49 yo M)Acc No.[id number]:01/28/2025 Patient: Armen HAWKINS :1975 A ge:49 Y S ex:Male Address:[address] [place] [address], [facility] [address], [place] [address] * Refills Refill Atorvastatin Calcium Tablet, 20 MG, Orally, 90 Tablet, 1 tablet, Once a day, 90 days, Refills=3 Refill Warfarin Sodium Tablet, 5 MG, Orally, 180 Tablet, 2 tabs, Once a day, 90 days, Refills=4 * true * Date: Generated for Gabriela velazquez/Sarah/Annabellaitting on: 07:11 PM EDT
--- OUTSIDE RECORDS SUMMARY | 2025-01-28 05:36 | XMS_ITS ---
Author Organization Lennox Tsang MD Address [address] [place] [address] [place] [phone] Care Team Providers Care Felling Machine Operator Name Role Phone Lennox Tsang Primary Care Provider [phone] REASON FOR VISIT Refill Request Encounters Encounter Location Date Provider Diagnosis Lennox Tsang MD [address] [place] [address] [place] [address] [phone] 01/28/2025 Lennox Tsang Plan Of Treatment Next Appt Details Provider Name:Lennox Reyes ierob, 04/26/2025 07:00:00 AM, [address] [place] [address], [address], [phone], Provider Name:Lennox Reyes ier, 05/03/2025 02:30:00 PM, [address] [place] [address], [phone], Progress Notes * Ian HANOB:1975 (49 yo M)Acc No.[id number]:01/28/2025 Patient: Rob CarrTashaArmen :1975 A ge:49 Y S ex:Male Address:[address] [place] [address], [address], [place] [address] * true * Date: Generated for Printi ng/Faxing/eTransmitting on: 07:09 PM EDT
--- OUTSIDE RECORDS SUMMARY | 2025-02-07 00:45 | XMS_ITS ---
Author Organization Lennox Tsang MD Address [address] [place] [address] [place] [phone] Care Team Providers Care Medical Administrative Technician Name Role Phone Lennox Tsang Primary Care Provider REASON FOR VISIT 6 MO F/U Encounters Encounter Location Date Provider Diagnosis Lennox Tsang MD [address] [place] [address] [place] [phone] 02/07/2025 Lennox Tsang Plan Of Treatment Next Appt Details Provider Name:Lennox white, 04/26/2025 07:00:00 AM, [address] [place] [address], [address], [phone], Provider Name:Lennox white, 05/03/2025 02:30:00 PM, [address] [place] [address], [phone], Progress Notes * Ian HANOB:1975 (50 yo M)Acc No.[id number]:02/07/2025 Progress Notes Patient: Armen HAWKINS Provider: Remy Tsang MD :1975 A ge:50 Y S ex:Male Date:02/07/2025 Address:[address] [place] [address], [address], [place], [place] Subjective: * Chief Complaints: * 1 . [...] 02/07/2025 Generated for Gabriela velazquez/Sarah/Nahid on: 1 07:11 PM EDT
[2025-03-18 16:26] LABS: Prothrombin Time Whole Bld POC 35.0 sec (11.1-13.5); ~PT, ~INR - Anti Coag Clinic 2.9 (0.9-1.1)
--- NOTE | 2025-03-18 16:31 | MHC.OFFVISCO ---
Intake Intake Visit Reasons: Anticoagulation Allergies No Known Allergies Allergy (Verified 03/18/25 16:20) Medication List - Last Reconciled 03/18/25 by Mishel Logan RN albuterol sulfate 90 mcg/actuation 0 mcg inhalation allopurinol 300 mg PO DAILY atorvastatin 20 mg PO QPM colchicine 0.6 mg PO BID PRN metformin ER 1,000 mg PO BID metolazone mg PO metoprolol succinate ER 50 mg PO DAILY spironolactone 100 mg PO BID torsemide 40 mg PO DAILY [VITAMIN D 3 PO] warfarin 5 mg See Protocol PO DAILY Nursing Note INR: 2.9 in therapeutic range Medications and supplements reviewed * pt to have parathyroid surgery 04/15/25 *Cardiology appt 03/20/25, pre-op 04/01/25 *Pt is aware he will be a warfarin hold with lovenox bridge Denies any signs and symptoms of bleeding or bruising or clotting. Bleeding, bruising, clotting discussed Nutritional guidance given - keep eating a mix of fruits and vegetables to balance INR Dose: keep same dose 10mg mwf/ 7.5mg x 4 days F/U INR: 04/08/2025 Patient verbalizes understanding of instructions given Anti-Coag Initial Assessment Social Hx Patient Tobacco Use Status: Never used Tobacco Coding Level of Care Code Est Patient Level 1 Diagnoses Current use of anticoagulant therapy Z79.01 Assessment & Plan Assessment & Plan (1) Current use of anticoagulant therapy: Code(s): Z79.01 - long term (current) use of anticoagulants Category: Medical
--- OUTSIDE RECORDS SUMMARY | 2025-03-18 19:10 | XMS_ITS | Encounter Summary ---
Author Organization [facility] Address [address] [place] [address] Phone Care Team Providers Care Supportability Engineer Name Role Phone Lennox Tsang MD Primary Care Provider [phone] Encounter Details Date Type Department Care Team (Late st Contact Info) Description 04/20/2024 Orders Only [facility] [address] [place] [address] Preet Valenzuela DO [address] [facility] [place] [address] Hypokalemia; Heart failure with normal [...] Visit [facility] [address] [place] [address] Preet Valenzuela DO [address] [facility] [place] [address] documented as of this encounter Visit Diagnoses Diagnosis Hypokalemia Heart failure with normal ejection fraction (HCC) Hypercalcemia documented in this encounter Care Teams Supportability Engineer Relationship Specialty Start Date End Date Lennox Tsang MD [address] [place] [address] [address] [place] PCP - General Internal Medicine 08/09/22 documented as of this encounter
--- OUTSIDE RECORDS SUMMARY | 2025-03-18 19:10 | XMS_ITS | Encounter Summary ---
Author Organization [facility] Address [address] [place] [address] Phone Care Team Providers Care Paramedic Supervisor Name Role Phone Lennox Tsang MD Primary Care Provider Encounter Details Date Type Department Care Team (Late st Contact Info) Description 01/27/2024 Orders Only [facility] [address] [facility] [place] [address] Preet Valenzuela DO [address] [facility] [place] [address] Hypokalemia; Heart failure with normal [...] Visit [facility] [address] [facility] [facility] [place] [address] Preet Valenzuela DO [address] [facility] [place] [address] documented as of this encounter [...] Magnesium 1.6 1.6 - 2.3 mg/dL [facility] Blood specimen (specimen) Venous blood / Unknown 03/21/2024 9:00 AM EDT 03/21/2024 us Preet Valenzuela DO LAB BLOOD ORDERABLES Final Resu lt [facility] [address] [place] [address] * (ABNORMAL) Renal Function Panel (03/21/2024 9:00 AM EDT) Glucose 112(H) 70 - 99 mg/dL [facility] BUN 23 6 - 24 mg/dL [facility] Creatinine 1.23 0.76 - 1.27 mg/dL [facility] eGFR CKD-EPI CR 2020 72 >59 mL/min/1.7 3 [facility] BUN/Creatinine Ratio 19 9 - 20 [facility] Sodium 136 134 - 144 mmol/L [facility] Potassium 5.1 3.5 - 5.2 mmol/L [facility] Chloride 95(L) 96 - 106 mmol/L [facility] Bicarbonate (CO2) 21 20 - 29 mmol/L [facility] Calcium 9.7 8.7 - 10.2 mg/dL [facility] Phosphorus 2.3(L) 2.8 - 4.1 mg/dL [facility] Albumin 4.5 4.1 - 5.1 g/dL [facility] Blood specimen (specimen) Venous blood / Unknown 03/21/2024 9:00 AM EDT 03/21/2024 us Preet Valenzuela DO LAB BLOOD ORDERABLES Final Resu lt [facility] [address] [place] [id number] documented in this encounter Visit Diagnoses Diagnosis Hypokalemia Heart failure with normal ejection fraction (HCC) Hypercalcemia documented in this encounter Care Teams Paramedic Supervisor Relationship Specialty Start Date End Date Lennox Tsang MD [address] [place] [address] [address] [place], [place] PCP - General Internal Medicine 08/09/22 documented as of this encounter
--- OUTSIDE RECORDS SUMMARY | 2025-03-18 19:10 | XMS_ITS | Encounter Summary ---
Author Organization [facility] Address [address] [place] [address] Phone Care Team Providers Care Print Decorator Name Role Phone Lennox Tsang MD Primary Care Provider [phone] Encounter Details Date Type Department Care Team (Late st Contact Info) Description 08/09/2024 Documentation Only [facility] [address] [place] [address] Preet Valenzuela DO [address] [facility] [place] [address] Social History Tobacco Use Types [...] Visit [facility] [address] [place] [address] Preet Valenzuela DO [address] [facility] [place] [address] documented as of this encounter Visit Diagnoses Not on filedocumented in this encounter Care Teams Print Decorator Relationship Specialty Start Date End Date Lennox Tsang MD [address] [facility] [address] [place], [place] PCP - General Internal Medicine 08/09/22 documented as of this encounter
--- OUTSIDE RECORDS SUMMARY | 2025-03-18 19:10 | XMS_ITS | Encounter Summary ---
Author Organization [facility] [place] Address [address] [place] [address] Phone Care Team Providers Care Watermaster Name Role Phone Lennox Tsang MD Primary Care Provider Encounter Details Date Type Department Care Team (Late st Contact Info) Description 08/09/2022 Documentation Only [facility] [address] [place] [address] Lennox Tsang MD [address] [place] [address] [address] [place] [address] Social History Tobacco Use Types Packs/Day Years [...] [facility] [address] [place] [address] Preet Valenzuela DO [address] [facility] [place] [address] documented as of this encounter Visit Diagnoses Not on filedocumented in this encounter Care Teams Watermaster Relationship Specialty Start Date End Date Lennox Tsang MD [address] [place] [address] [address] [place] [address] PCP - General Internal Medicine 08/09/22 documented as of this encounter
--- OUTSIDE RECORDS SUMMARY | 2025-03-18 19:10 | XMS_ITS | Patient Health Record ---
Author Organization [facility] Address [address] [facility] [address] [place] [address] Care Team Providers Care Motorized Squad Commanding Officer Name Role Phone Lennox Tsang Primary Care [...] Status Risk Notes Problem Atherosclerosis of artery (214154834) Arterial atherosclerosis (I70.8) Active confirmed Plan Of Treatment Pending Test Test Name Order Date EMIL 04/19/2022 Ultrasound : Artery Doppler Low Ext Bila t 04/19/2022 X ray : Foot, left 3v 04/19/2022 Insurance Providers Payer Name Payer Address Payer Phone Subscriber Number Group Number Insured Name Patient Relationship to Insured Coverage Start Date Coverage End Date [facility] [address] [place], [place] [phone] [id number] Armen Olson Self - patient is the [...]
--- OUTSIDE RECORDS SUMMARY | 2025-03-18 19:11 | XMS_ITS | Encounter Summary ---
Author Organization [facility] Address [address] [place] [address] Phone Care Team Providers Care Porter Head Name Role Phone Lennox Tsang MD Primary Care Provider [phone] Encounter Details Date Type Department Care Team (Late st Contact Info) Description 09/01/2023 Documentation Only [facility] [address] [place] [address] Preet Valenzuela DO [address] [facility] [place] [address] Social History Tobacco Use Types [...] [facility] [address] [facility] [place] [address] Preet Valenzuela DO [address] [facility] [place] [address] documented as of this encounter Visit Diagnoses Not on filedocumented in this encounter Care Teams Porter Head Relationship Specialty Start Date End Date Lennox Tsang MD [address] [facility] [address] [place], [place] PCP - General Internal Medicine 08/09/22 documented as of this encounter
--- OUTSIDE RECORDS SUMMARY | 2025-03-18 19:11 | XMS_ITS | Encounter Summary ---
Author Organization [facility] Address [address] [place] [address] Phone Care Team Providers Care Trash Man Name Role Phone Lennox Tsang MD Primary Care Provider [phone]- [phone] Encounter Details Date Type Department Care Team (Late st Contact Info) Description 09/21/2023 Documentation Only [facility] [address] [place] [address] Preet Valenzuela DO [address] [facility] [place] [address] Social History Tobacco Use Types [...] Visit [facility] [address] [facility] [place] [address] Preet Valenzuela DO [address] [facility] [place] [address] documented as of this encounter Visit Diagnoses Not on filedocumented in this encounter Care Teams Trash Man Relationship Specialty Start Date End Date Lennox Tsang MD [address] [facility] [facility] [address] [place], [place] PCP - General Internal Medicine 08/09/22 documented as of this encounter
--- OUTSIDE RECORDS SUMMARY | 2025-03-18 19:11 | XMS_ITS | Encounter Summary ---
Author Organization [facility] [place], Address [address] [place] [address] Phone Care Team Providers Care Fagoter Name Role Phone Lennox Tsang MD Primary Care Provider Reason for Visit * Reason Comments Med Refill Encounter Details Date Type Department Care Team (Late st Contact Info) Description 08/29/2023 Refill [facility] [address] [place] [address] Preet Valenzuela DO [address] [facility] [place] [address] Hypokalemia; Heart failure with normal [...] [facility] [address] [place] [address] Preet Valenzuela DO [address] [facility] [place] [address] documented as of this encounter Visit Diagnoses Diagnosis Hypokalemia Heart failure with normal ejection fraction (HCC) documented in this encounter Care Teams Fagoter Relationship Specialty Start Date End Date Lennox Tsang MD [address] [facility] [address] [place], [place] PCP - General Internal Medicine 08/09/22 documented as of this encounter
--- OUTSIDE RECORDS SUMMARY | 2025-03-18 19:11 | XMS_ITS | Patient Health Record ---
Author Organization Lennox Tsang MD Address [address] [place], [place] [address] Care Team Providers Care Flower Buncher Or Picker Name Role Phone Lennox Tsang Primary Care Provider [phone] Allergies Allergen (clinical drug ingredient) Drug/Non Drug Allergy documented on EMR Reaction Allergy Type Onset Date Status ibuprofen Ibuprofen bleeding Drug Allergy Active Results Component Value Reference Range Notes Liver Panel Reviewed date:07/30/2024 06:02:36 PM Interpretation: Performing Lab:[facility], [address] [place] [phone] Notes/Report: Bilirubin Total 0.7 0.0-1.0 mg/dL Bilirubin Direct 0.2 0.0-0.5 mg/dL Aspartate Amino Transferase 29 5-37 U/L Alanine Aminotransferase 32 0-40 U/L Total Protein 7.8 6.5-8.0 g/dL Albumin Level 4.2 3.5-5.0 g/dL Alkaline Phosphatase 91 39-117 U/L Blood Urea Nitrogen Reviewed date:07/30/2024 06:02:51 PM Interpretation: Performing Lab:[facility], [address] [place] [phone] Notes/Report: Blood Urea Nitrogen 27 9-16 mg/dL Creatinine Reviewed date:07/30/2024 06:02:43 PM Interpretation: Performing Lab:[facility], [address] [place] [phone] Notes/Report: Creatinine 1.25 0.5-1.4 mg/dL Estimated Glomerular Filt Rate > 60 Chronic Kidney Disease: Estimated GFR < 60 mL/min/1.73m2 Severe Kidney Disease: Estimated GFR < 15 mL/min/1.73m2 Lipid Panel Reviewed date:07/30/2024 06:02:22 PM Interpretation: Performing Lab:[facility], [address] [place] [phone] Notes/Report: Triglycerides 217 <150 mg/dL Desirable Triglyceride: [...] Panel Reviewed date:11/02/2024 12:41:22 PM Interpretation: Performing Lab:[facility], [address] [place] [phone] Notes/Report: Bilirubin Total 0.6 0.0-1.0 mg/dL Bilirubin Direct 0.2 0.0-0.5 mg/dL Aspartate Amino Transferase 45 5-37 U/L Slight Hemolysis.Interpret result with caution. Alanine Aminotransferase 31 0-40 U/L Total Protein 8.1 6.5-8.0 g/dL Albumin Level 4.9 3.5-5.0 g/dL Alkaline Phosphatase 85 39-117 U/L Lipid Panel with Reflex Reviewed date:11/02/2024 12:41:04 PM Interpretation: Performing Lab:[facility], [address] [place] [phone] Notes/Report: Triglycerides 176 <150 mg/dL Desirable Triglyceride: [...] PM Interpretation:see back 05-31-2024 Performing Lab: Notes/Report: [address] [address] XRay Report Signed Patient: Armen Olson MR#: [id number] : 1975 Acct:[id number] Age/Sex: 49 / M ADM Date: 05/30/24 Loc: HO.LAB Attending Dr: Lennox Tsang MD Ordering Physician: Lennox Tsang MD Date of Service: 05/30/24 Procedure(s): XR ribs LT min 3V w CXR1V Accession Number(s): [id number] cc: Lennox Tsang MD CLINICAL HISTORY: FELL [...] in OV> 05/30/24704 DD/ 2 TD/TT: 05/30/24702 Repair Armature Winder Helper: [address] [place] [address] XRay Report Signed Patient: Armen Olson MR #: [id number] : 1975 Acct:[id number] Age/Sex: 49 / M ADM Date: 05/30/24 Loc: HO.LAB Attending Dr: Lennox Tsang MD Ordering Physician: Lennox Tsang MD Date of Service: 05/30/24 Procedure(s): XR rib s LT min 3V w CXR1V Accession Number(s): [id number] cc: Lennox Tsang MD CLINICAL HISTORY: FE [...] OV> 05/30/24704 DD/ 2 TD/TT: 05/30/24 07 Repair Armature Winder Helper: Raudel Costa Reviewed date:07/30/2024 12:44:46 PM Interpretation: Performing Lab:[facility], [address] [place] [phone] Notes/Report: Raudel Costa See Note Specimen held untested for 24 hours; Call to request Chemistry testing. INR WHOLE BLOOD POC Reviewed date:08/16/2024 10:45:38 AM Interpretation: Performing Lab:[facility], [address] [place] [phone] Notes/Report: PT, INR - [facility] 4.0 0.9-1.1 METER #: [id number] INTERNATIONAL NORMALIZED RATIO (INR) REFERENCE RANGES Reference [...] OC Reviewed date:08/16/2024 10:45:10 AM Interpretation: Performing Lab:[facility], [address] [place] [phone] Notes/Report: Prothrombin Time Whole Bld POC 48.1 11.1-13.5 sec INR WHOLE BLOOD POC Reviewed date:10/12/2024 12:18:05 PM Interpretation: Performing Lab:[facility], [address] [place] [phone] Notes/Report: PT, INR - [facility] 3.8 0.9-1.1 METER #: [id number] INTERNATIONAL NORMALIZED RATIO (INR) REFERENCE RANGES Reference [...] OC Reviewed date:10/12/2024 12:17:08 PM Interpretation: Performing Lab:[facility], [address] [place] [phone] Notes/Report: Prothrombin Time Whole Bld POC 45.0 11.1-13.5 sec INR WHOLE BLOOD POC Reviewed date:10/25/2024 12:36:37 PM Interpretation: Performing Lab:[facility], [address] [place] [phone] Notes/Report: PT, INR - [facility] 3.8 0.9-1.1 METER #: [id number] INTERNATIONAL NORMALIZED RATIO (INR) REFERENCE RANGES Reference [...] OC Reviewed date:10/25/2024 12:38:11 PM Interpretation: Performing Lab:[facility], [address] [place] [phone] Notes/Report: Prothrombin Time Whole Bld POC 45.1 11.1-13.5 sec Hold Gold Reviewed date:11/02/2024 12:40:55 PM Interpretation: Performing Lab:[facility], [address] [place] [phone] Notes/Report: Hold Gold See Note Specimen held untested for 24 hours; Call to request Chemistry testing. INR WHOLE BLOOD POC Reviewed date:11/09/2024 12:09:03 PM Interpretation: Performing Lab:[facility], [address] [place] [phone] Notes/Report: PT, INR - [facility] 2.5 0.9-1.1 METER #: [id number] INTERNATIONAL NORMALIZED RATIO (INR) REFERENCE RANGES Reference [...] OC Reviewed date:11/09/2024 04:30:54 PM Interpretation: Performing Lab:[facility], [address] [place] [phone] Notes/Report: Prothrombin Time Whole Bld POC 29.5 11.1-13.5 sec INR WHOLE BLOOD POC Reviewed date:11/20/2024 10:24:22 AM Interpretation: Performing Lab:[facility], [address] [place] [phone] Notes/Report: PT, INR - [facility] 4.1 0.9-1.1 METER #: [id number] INTERNATIONAL NORMALIZED RATIO (INR) REFERENCE RANGES Reference [...] OC Reviewed date:11/20/2024 10:24:14 AM Interpretation: Performing Lab:[facility], [address] [place] [phone] Notes/Report: Prothrombin Time Whole Bld POC 49.3 11.1-13.5 sec INR WHOLE BLOOD POC Reviewed date:12/04/2024 12:19:35 PM Interpretation: Performing Lab:[facility], [address] [place] [phone] Notes/Report: PT, INR - [facility] 4.9 0.9-1.1 METER #: [id number] INTERNATIONAL NORMALIZED RATIO (INR) REFERENCE RANGES Reference [...] OC Reviewed date:12/04/2024 12:19:18 PM Interpretation: Performing Lab:[facility], [address] [place] [phone] Notes/Report: Prothrombin Time Whole Bld POC 58.7 11.1-13.5 sec INR WHOLE BLOOD POC Reviewed date:12/18/2024 12:43:44 PM Interpretation: Performing Lab:[facility], [address] [place] [phone] Notes/Report: PT, INR - [facility] 3.9 0.9-1.1 METER #: [id number] INTERNATIONAL NORMALIZED RATIO (INR) REFERENCE RANGES Reference [...] OC Reviewed date:12/18/2024 12:43:52 PM Interpretation: Performing Lab:[facility], [address] [place] [phone] Notes/Report: Prothrombin Time Whole Bld POC 47.0 11.1-13.5 sec INR WHOLE BLOOD POC Reviewed date:12/24/2024 04:37:33 PM Interpretation: Performing Lab:[facility], [address] [place] [phone] Notes/Report: PT, INR - [facility] 2.0 0.9-1.1 METER #: [id number] INTERNATIONAL NORMALIZED RATIO (INR) REFERENCE RANGES Reference [...] OC Reviewed date:12/24/2024 04:37:23 PM Interpretation: Performing Lab:[facility], [address] [place] [phone] Notes/Report: Prothrombin Time Whole Bld POC 24.3 11.1-13.5 sec INR WHOLE BLOOD POC Reviewed date:12/31/2024 05:48:15 PM Interpretation: Performing Lab:[address] [phone] Notes/Report: PT, INR - [facility] 2.6 0.9-1.1 METER #: [id number] INTERNATIONAL NORMALIZED RATIO (INR) REFERENCE RANGES Reference [...] OC Reviewed date:12/31/2024 05:45:34 PM Interpretation: Performing Lab:[facility], [address] [place] [phone] Notes/Report: Prothrombin Time Whole Bld POC 30.8 11.1-13.5 sec INR WHOLE BLOOD POC Reviewed date:01/15/2025 02:51:48 PM Interpretation: Performing Lab:[facility], [address] [place] [phone] Notes/Report: PT, INR - [facility] 3.4 0.9-1.1 METER #: [id number] INTERNATIONAL NORMALIZED RATIO (INR) REFERENCE RANGES Reference [...] OC Reviewed date:01/15/2025 04:43:48 PM Interpretation: Performing Lab:[facility], [address] [place] [phone] Notes/Report: Prothrombin Time Whole Bld POC 41.4 11.1-13.5 sec INR WHOLE BLOOD POC Reviewed date:02/04/2025 04:43:47 PM Interpretation: Performing Lab:[facility], [address] [place] [phone] Notes/Report: PT, INR - [facility] 3.3 0.9-1.1 METER #: [id number] INTERNATIONAL NORMALIZED RATIO (INR) REFERENCE RANGES Reference [...] OC Reviewed date:02/04/2025 04:43:55 PM Interpretation: Performing Lab:[facility], [address] [place] [phone] Notes/Report: Prothrombin Time Whole Bld POC 39.4 11.1-13.5 sec INR WHOLE BLOOD POC Reviewed date:02/27/2025 08:08:45 AM Interpretation: Performing Lab:[facility], [address] [place] [phone] Notes/Report: PT, INR - [facility] 2.6 0.9-1.1 METER #: [id number] INTERNATIONAL NORMALIZED RATIO (INR) REFERENCE RANGES Reference [...] Prothrombin Time Whole Bld P OC Reviewed date:02/27/2025 08:08:37 AM Interpretation: Performing Lab:[facility], [address] [place] [phone] Notes/Report: Prothrombin Time Whole Bld POC 31.4 11.1-13.5 sec INR WHOLE BLOOD POC (Not yet reviewed by provider) Interpretation: Performing Lab:[facility], [address] [place] [phone] Notes/Report: PT, INR - [facility] 2.9 0.9-1.1 METER #: [id number] INTERNATIONAL NORMALIZED RATIO (INR) REFERENCE RANGES Reference [...] (Not yet reviewed by provider) Interpretation: Performing Lab:[facility], [address] [place] [phone] Notes/Report: Prothrombin Time Whole Bld POC 35.0 11.1-13.5 sec Reason For Referral Reason HYPERPARATHYROIDISM [...] Problem Status W/U Status Risk Notes Problem 14312357 Rectal bleeding (K62.5) Active confirmed Problem Gout (50670226) Gout (M10.9) Active confirmed Problem Hypomagnesemia (225183601) Hypomagnesemia (E83.42) Active confirmed Problem Hypercalcemia (31219387) Hypercalcemia (E83.52) Active confirmed Problem 802074584 Other ascites (R18.8) Active confirme d Problem 9695404975804 Aortic valve prosthesis present (Z95.2) Active confirmed Problem 796349658 Chronic systolic congestive heart failure (I50.22) Active confirmed Problem 52974706 Obstructive slee p apnea syndrome (G47.33) Active confirmed Problem 32204372 Hyperparathyroid ism (E21.3) Active confirmed Problem 46322584 Intrinsic eczema (L20.84) Active confirmed Problem 493893660 Leukocytosis, unspecified type (D72.829) Active confirmed Problem 78892585 Arthralgia, unspecified joint (M25.50) Active confirmed Problem 44038978 Cardiac asthma (I50.1) Active confirmed Problem 576344986 Fatty liver (K76.0) Active confirmed Problem Chronic systolic heart failure (918116698) Chronic systolic CHF (congestive heart failure) (I50.22) Active confirmed Problem 89144173 Hypercholesterem ia (E78.00) Active confirmed Problem 487449144 Type 2 diabetes mellitus without complication, without long-term current use of insulin (E11.9) Active confirmed Problem 736448060 Mild intermitten t asthmatic bronchitis with acute exacerbation (J45.21) Active confirmed Problem 560984627545359 Acute drug-induc ed gout of foot, unspecified laterality (M10.279) Active confirmed Problem 290669431 Obesity (BMI 35.0-39.9 without comorbidity) (E66.9) Active [...] Location Date Provider Diagnosis Lennox Tsang MD [address] [place] [id number] 07/30/2024 Lennox Nairardier Hyperparathyroidism E21.3 Lennox Tsang MD [address] [place] [id number] 11/02/2024 Lennox Tsang Hypercholesteremia E 78.00 Lennox Tsang MD [address] [place] [id number] 04/30/2024 Lennox Nairardier Hyperparathyroidism E21.3 ; Encounter for general adult medical examination without abnormal findings Z00.00 ; Hypercholesteremia E78.00 and Chronic systolic congestive heart failure I50.22 Lennox Tsang MD [address] [place] [id number] 05/29/2024 Lennox Tsang Fall on stairs, init ial encounter W10.9XXA and Closed fracture of one rib of left side, initial encounter S22.32XA Lennox Tsang MD [address] [place] [id number] 05/31/2024 Lennox Tsang Chronic systolic congestive heart failure I50.22 Lennox Tsang MD [address] [place] [address] [id number] 08/06/2024 Lennox Tsang Chronic systolic congestive heart failure I50.22 ; Obstructive sleep apnea syndrome G47.33 ; Aortic valve prosthesis present Z95.2 and Hypercholesteremia E78.00 Lennox Tsang MD [address] [place] [id number] 08/03/2024 Lennox Tsang MD [address] [place] [address] [id number] 08/06/2024 Lennox Tsnag MD [address] [place] [address] [id number] 05/28/2024 Lennox Tsang MD [address] [place] [address] [id number] 05/30/2024 Lennox Tsang MD [address] [place] [address] [id number] 07/18/2024 Lennox Tsang MD [address] [place] [id number] 07/20/2024 Lennox Tsang COVID-19 U07.1 Lennox Tsang MD [address] [place] [id number] 07/23/2024 Lennox Tsang MD [address] [place] [address] [id number] 07/23/2024 Lennox Tsang MD [address] [place] [address] [id number] 09/10/2024 Lennox Tsang MD [address] [place] [address] [id number] 09/15/2024 Lennoxenrique Tsang MD [address] [place] [address] [id number] 01/01/2025 Lennox Tsang MD [address] [place] [address] [id number] 01/28/2025 Lennox Tsang Hypercholesteremia E 78.00 Lennox Tsang MD [address] [place] [address] [id number] 01/28/2025 Lennox Tsang Assessments Encounter Date Diagnosis (ICD Code) Assessment Notes Treatment Notes Treatment Clinical Notes Section Notes 07/30/2024 Hyperparathyroidism (ICD-10 - E21.3) 11/02/2024 Hypercholesteremia (ICD-10 - E78.00) 04/30/2024 Hyperparathyroidism (ICD-10 - E21.3) referral to [facility] endocrine/ REFERRAL MADE TO ENDOCRINE , WILL FAX AFTER CASE LOCKED 04/30/2024 Encounter for genera l adult medical examination without abnormal findings (ICD-10 - Z00.00) Labs reviewed and discussed with patient 05/29/2024 Fall on stairs, init ial encounter (ICD-10 - W10.9XXA) pending diagnostic testing, order faxed to [facility] Patient Reg 05/29/2024 Closed fracture of o [...] & LAT 05/25/2022 INR WHOLE BLOOD POC 03/18/2025 Prothrombin Time Whole Bld POC Next Appt Details Provider Name:Lennox Reyes ier, 04/26/2025 07:00:00 AM, [address] [place] [address], [address], [phone], Provider Name:Lennox Reyes ier, 05/03/2025 02:30:00 PM, [address] [place] [address], [place] [address], [place], [place], [phone], Insurance Providers Payer Name Payer Address Payer Phone Subscriber Number Group Number Insured Name Patient Relationship to Insured Coverage Start Date Coverage End Date [address] [place] [address] [id number] ; [id number] Armen Olson Self - patient is the insured Medical (General) History Medical History History ICD Code Hx of Umbilical Hernia discussed colonoscopy and he wants to wait: 11/24/22 colonoscopy tubular adenoma. repeat in 5 years Prediabetes R73.09 Surgical History Surgery Date(Month/Year) aortic valve replacement 2001 cervical spine fusion
--- OUTSIDE RECORDS SUMMARY | 2025-03-18 19:11 | XMS_ITS | Encounter Summary ---
Author Organization [facility] Address [address] [place] [address] Phone Care Team Providers Care Test Lead Name Role Phone Lennox Tsang MD Primary Care Provider Encounter Details Date Type Department Care Team (Late st Contact Info) Description 10/05/2024 Orders Only [facility] [address] [place] [address] Preet Valenzuela DO [address] [place] [address] Hypokalemia; Heart failure with normal [...] Visit [facility] [address] [place] [address] Preet Valenzuela DO [address] [place] [address] documented as of this encounter Visit Diagnoses Diagnosis Hypokalemia Heart failure with normal ejection fraction (HCC) Hypercalcemia documented in this encounter Care Teams Test Lead Relationship Specialty Start Date End Date Lennox Tsang MD [address] [place] [address] [address] [place] PCP - General Internal Medicine 08/09/22 documented as of this encounter
--- OUTSIDE RECORDS SUMMARY | 2025-03-18 19:11 | XMS_ITS | Encounter Summary ---
Author Organization [facility] Address [address] [place] [address] Phone Care Team Providers Care Confectionery Cooker Name Role Phone Lennox Tsang MD Primary Care Provider [phone] Encounter Details Date Type Department Care Team (Late st Contact Info) Description 09/21/2023 Documentation Only [facility] [address] [place] [address] Preet Valenzuela DO [address] [place] [address] Social History Tobacco Use Types [...] Visit [facility] [address] [place] [address] Preet Valenzuela DO [address] [place] [address] documented as of this encounter Visit Diagnoses Not on filedocumented in this encounter Care Teams Confectionery Cooker Relationship Specialty Start Date End Date Lennox Tsang MD [address] [place], [place] PCP - General Internal Medicine 08/09/22 documented as of this encounter
--- OUTSIDE RECORDS SUMMARY | 2025-03-18 19:12 | XMS_ITS | Encounter Summary ---
Author Organization [facility] Address [address] [place] [address] Phone Care Team Providers Care Subsystems Engineer Name Role Phone Lennox Tsang MD Primary Care Provider Encounter Details Date Type Department Care Team (Late st Contact Info) Description 07/13/2024 Orders Only [facility] [address] [place] [address] Preet Valenzuela DO [address] [place] [address] Hypokalemia; Heart failure with normal [...] [facility] [address] [place] [address] Preet Valenzuela DO [address] [place] [address] documented as of this encounter Visit Diagnoses Diagnosis Hypokalemia Heart failure with normal ejection fraction (HCC) Hypercalcemia documented in this encounter Care Teams Subsystems Engineer Relationship Specialty Start Date End Date Lennox Tsang MD [address] [place] [address] [address] [place] PCP - General Internal Medicine 08/09/22 documented as of this encounter
--- OUTSIDE RECORDS SUMMARY | 2025-03-18 19:12 | XMS_ITS | Clinical Summary ---
Author Organization Patient Business Ser [facility] Address [address] [place] [address] Care Team Providers Care Electronics Supervisor Name Role Phone Unavailable Primary Care Provider Unavailabl e Allergies No known active allergies Medications spironolactone (ALDACTONE) 100 mg tablet Take 1 [...] M, W, Th, Sat, Sun. Coumadin clinic [facility]. managing INR Active atorvastatin (LIPITOR) 20 mg tablet Take 1 tablet (20 mg total) by mouth at bedtime. Active metOLazone (ZAROXOLYN) 2.5 mg tablet TAKE 1 TABLET BY MOUTH THREE TIMES A WEEK. 36 tablet 2 5 Active Additional Information Patient taking differently:2.5 mg oral2 times weekly, Reported on 09/11/2024 cholecalcifero l (VITAMIN D-3) 25 mcg (1,000 unit) tablet Take 1 tablet (1,000 Units total) by mouth 1 (one) time each day. Active torsemide (DEMADEX) 20 mg tablet TAKE THREE TABLETS BY MOUTH EVERY MORNING AND TAKE TWO TABLETS EVERY EVENING 450 tablet 3 5 Active metoprolol succinate (TOPROL-XL) 50 mg 24 hr tablet Take 1 tablet (50 mg total) by mouth 1 (one) time each day. Take 1 Tablet by mouth daily. 1 tab in the morning 90 tablet 2 5 Active metoprolol succinate (TOPROL-XL) 50 mg 24 hr tablet Take 1 Tablet by mouth daily. 1 tab in the morning 03/11/20 25 Discontin ued(Reord er) metoprolol succinate (TOPROL-XL) 50 mg 24 hr tablet Take 1 tablet (50 mg total) by mouth 1 (one) time each day. Take 1 Tablet by mouth daily. 1 tab in the morning 90 tablet 2 5 03/13/20 25 Discontin ued(Reord er) Active Problems Problem Noted Date Diagnosed Date [...] Patient has upcoming echocardiogram scheduled. CHF exacerbation ([facility] V24, [facility] V28) 05/25 Assessment & Plan (09/11/2024 1:03 PM EDT): History diastolic dysfunction, HFpEF volume fairly well-managed at the present time with as needed use of Zaroxolyn about twice a week to keep volume down. Patient's weight is down his breathing is better he is trying to exercise without limitations he said no chest pain. Transfer text Palpitations 06/22/2022 Diastolic heart failure ([facility] V24, [facility] V2 8) 01/02/2021 Subaortic stenosis 06/02/2020 PVC [...] Description 03/20/2025 7:50 AM EDT Office Visit [facility] [address] [place] [address] [address] [place] [phone] Zac Lal MD [address] [place] [address] Dr [address] [place] [address] Health Maintenance Due Date Last Done Comments [...] age to complete this topic Insurance [facility]
--- OUTSIDE RECORDS SUMMARY | 2025-03-18 19:12 | XMS_ITS | Encounter Summary ---
Author Organization [facility] Address [address] [place] [address] Phone Care Team Providers Care Tipping Machine Operator Name Role Phone Lennox Tsang MD Primary Care Provider [phone] Encounter Details Date Type Department Care Team (Late st Contact Info) Description 01/06/2023 Documentation Only [facility] [address] [place] [phone] Preet Valenzuela DO [address] [place] [phone] Social History Tobacco Use Types Packs/Day Years [...] Visit [facility] [address] [place] [phone] Preet Valenzuela DO [address] [place] [phone] Scheduled Orders Name Type Priority Associated Diagnoses [...] 10:08 AM EST) Creatinine, Urine 165.1 MG/DL [facility] Comment: Testing performed or reported by [facility], a Service of [facility], [address] [place] [address] Stephen Buckley MD, Ham Stringer CLIA# [id number] Urine specimen (specimen) Urine specimen obtained by clean catch procedure / Unknown 06/01/2023 10:08 AM EST 06/01/2023 10:34 AM EST Preet Cynvec LAB URINE ORDERABLES Final Resu lt Performing Organization Address [facility] Co de Phone Number [facility] * (ABNORMAL) PTH, intact (06/01/2023 10:08 AM EST) PTH, Intact 124(H) (15-65) PG/ML [facility] Comment: Testing performed or reported by [facility], a Service of [facility], [address] [place] [address] Stephen Buckley MD, Ham Stringer CLIA# [id number] Blood specimen (specimen) Venous blood / Unknown 06/01/2023 10:08 AM EST 06/01/2023 10:33 AM EST Preet Cynvec LAB BLOOD ORDERABLES Final Resu lt Performing Organization Address City/[facility]/ZIP Co de Phone Number [facility] documented in this encounter Visit Diagnoses Diagnosis Hypercalcemia- Primary documented in this encounter Care Teams Tipping Machine Operator Relationship Specialty Start Date End Date Lennox Tsang MD [address] [place], [place] PCP - General Internal Medicine 08/09/22 documented as of this encounter
--- OUTSIDE RECORDS SUMMARY | 2025-03-18 19:12 | XMS_ITS | Patient Health Record ---
Author Organization [facility] Address [address] [place] [address] Care Team Providers Care Belt Builder Name Role Phone Sharan DIAZ, Lennox Primary Care Provider Gurjit Goodman Unavailable [phone] Allergies No Known Allergies Reason For Referral No Information Medications Medication SIG (Take, Route, Frequency, Duration) Notes Start Date End Date Status Warfarin Sodium 5 MG Oral; Duration: 90 Active Allopurinol 300 MG Oral; Duration: 90 Active Torsemide 20 MG Oral; Duration: 90 Active metOLazone 2.5 MG Oral; Duration: 84 Active Mag-Oxide 200 MG as directed Orally Active Metoprolol Succinate ER 50 MG Oral; Duration: 90 Active Spironolactone 25 MG Oral; Duration: 30 Active Potassium Chloride Eli ER 20 MEQ Oral; Duration: 30 Active Immunizations Vaccine Route Administration Date [...] Problem Status W/U Status Risk Notes Problem Rectal bleeding (50352435) Rectal bleeding (K62.5) Active confirmed Problem Screening for malignant neoplasm of colon (667158963) Encounter for screening for malignant neoplasm of colon (Z12.11) Active confirmed Problem Diverticular disease of colon (625464864) Diverticulosis of large intestine without perforation or abscess without bleeding (K57.30) Active confirmed Plan Of Treatment Pending Test Test Name Order Date Pathology 11/24/2022 Future Test Test Name Order Date COLONOSCOPY 10/01/2022 Insurance Providers Payer Name Payer Address Payer Phone Subscriber Number Group Number Insured Name Patient Relationship to Insured Coverage Start Date Coverage End Date [facility] [address] [place] [phone] [id number] SARINA HAN Self - patient is the insured Medical (General) History Medical History History ICD Code Denies PA,DM,CVA,Lung disease,renal dise ase 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 Lal in [place] Sleep apnea-CPAP Arrhythmia with PVC's Gout He describes that he has bee n told at [facility] that he is a difficult intubation Surgical History Surgery Date(Month/Year) Heart surgery for IHSS--his heart surgery in 2001 involved replacement of the aortic valve with a [employer]. Fuad's valve 1984,1988,2001 Cervical spine fusion C1-C5 1988 Hernia repair--Bilateral inguinal and um bilical 2011,2013,2017, Tonsillectomy and adenoidectomy
--- OUTSIDE RECORDS SUMMARY | 2025-03-18 19:12 | XMS_ITS | Clinical Summary ---
Author Organization [facility], Address [address] [place] [address] Phone Care Team Providers Care Medical Cost Consultant Name Role Phone Lennox Tsang MD [...] [facility] [address] [place] [address] Preet Valenzuela DO [address] [place] [address] Health Maintenance Due Date Last [...] Screening: Sigmoidoscopy 01/29/[address] [place] [address] [facility] Care Teams Medical Cost Consultant Relationship Specialty Start Date End Date Lennox Tsang MD [address] [place] [address] [address] [place] [address] PCP - General Internal Medicine 08/09/22
--- OUTSIDE RECORDS SUMMARY | 2025-03-18 19:12 | XMS_ITS | Data Portability ---
Author Organization [place] [facility] Address [address] [facility] 100 [place] [address] Care Team Providers Care Package Designer Name Role Phone KHADIJAH GODWIN Primary Care Provider [phone] Assessment Encounter Date Assessment Date Assessment LastModified [...] pursing due to limited finances. F/U PRN. [email or web address] Not available 11/15/2024 13:19:16 02/11/2025 02/11/2025 49-year-old [...] contr ast No observ ation record ed. [email or web address] Not Available 01/22 10:28:57 Result Notes None recorded. Problems Name Problem SNOMED Code Status Onset Date Resolution Date Notes Provider Name and Address Organization Details Recorded Time Impacted cerumen of bilateral ears 0408556674128 108 Active 2024 WENDY PATEL PA-C [address] [facility] [place],[address] [facility], [place], [address], [place] [facility] [place] 5 12:06:34 Sensorineur al hearing loss of bilateral ears 611092784 Active 2024 JOHNATHON POZO, AUD [address] [facility] [place],[address], [place], [address], [place] [facility] [place] 13:25:21 Impacted cerumen in left ear 9944528429437 101 Active 2024 WENDY PATEL PA-C [address] [facility] [place],[address] [facility], [place], [address], [place] - [facility] [place] 15:20:29 Mass of tongue 292263995 Active 2024 Preet Gil, DO [address] [facility], [address] [facility], [place], [address], [place] - [facility] [place] 5 08:52:45 Problem Notes None recorded. Procedures Surgical History Date Name Laterality Status Provider Name and Address Organization Details Recorded Time 5 FOL_normal_DHL completed Preet Gil DO [address] [facility],[address], [address], [place] - [facility] [place] 02/11/2025 10:15:38 5 Comp Audio with Tymps - 06601 & 10381 completed JOHNATHON POZO, AUD 100 [facility] [place],[address], [address], [place] - [facility] [place] 10/23/2024 13:25:16 5 Cerumen removal without microscope left completed WENDY PATEL PA-C [address] [facility] [place],[address], [address], [place] - [facility] [place] 10/23/2024 15:21:03 05/19/202 5 Cerumen removal with microscope bilateral completed WENDY PATEL PA-C [address], [address], [facility] - [facility] 10/08/2024 10:40:11 Imaging Results None recorded. [...] Address Organization Details Last Updated DateTime 10/08/2024 93085.77 g 36.7 kg/m2 162.56 cm Kim Galo [place] [facility] 10/08/2024 10:13:37 Date Recorded Body height Body mass index (BMI) Body weight Provider Name and Address Organization Details Last Updated DateTime 10/23/2024 162.56 cm 36.9 kg/m2 91237.36 g Agustina Reyes [facility] 10/23/2024 13:45:09 Date Recorded Body height Body mass index (BMI) Body weight Provider Name and Address Organization Details Last Updated DateTime 02/11/2025 162.56 cm 36.9 kg/m2 85732.36 g Jose Garcia [facility] 02/11/2025 09:31:06 Social History Question Answer Notes LastModified by Organizat ion Details LastModified Time Tobacco Smoking Status Never Smoker Kim boyle [facility] 10/08/2024 10:14:11 What Type Of Caustics Loader Do You Use? None [email or web address] Information not available 10/08/2024 Do You Have Any Pets? No [email or web address] Information not available 10/08/2024 Are You Passively Exposed To Smoke? No [email or web address] Information not available 10/08/2024 Are There Any Smokers In Your House? No Information not available 10/08/2024 Sex: Unknown Functional Status Question Answer Note LastModified by Organization Details LastModified Time Do you use any illicit or recreational drugs? No [email or web address] Information not available 10/08/2024 Do you or have you ever used any other forms of tobacco or nicotine? No [email or web address] Information not available 10/08/2024 What is your level of alcohol consumption? 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 noExposureToExcessiveNoise [email or web address] Infor mation not available 10/08/2024 Mental Status None recorded. Family History Nothing Reported. Medical History Condition Response Allergies/Hayfever N Heart Problems Y Anxiety N Tonsil Infections N Emphysema N Migraines N Thyroid Problems Y Glaucoma N Depression N COPD N Developmental Delay N Nasal or Sinus Problems N Anemia N Immune System Disorder N Anesthesia Complications N Heart Attack ([place]) N Other Skin Condition N Diabetes Y Rhinitis N Bleeding Disorder N Food Allergy N Arthritis N Hearing Loss Y Hyperlipidemia Y Cancer N Stroke N Dementia N Nasal polyps N Asthma N High Cholesterol Y Sleep Disorder Y GERD/Reflux N Liver Disease N Headaches N Fibromyalgia N Hypertension N Speech Delay N Kidney Disease N Past Encounters Encounter ID Performer Location Encounter Start Date Encounter Closed Date Diagnosis/Indication Diagnosis SNOMED-CT Code Diagnosis ICD10 Code Diagnosis IMO Codes Diagnosis Note [id number] WENDY PATEL PA-C [facility] [address] [address] 10/08/2024 09:55:54 10/08/2024 10:46:57 Impacted cerumen of bilateral ears 3151934577 216212 H61.23 891884 Hearing lo ss of left ear 170669543 H91.92 18683074 [id number] WENDY PATEL PA-C [facility] [address] [address] 10/23/2024 13:00:43 10/23/2024 14:37:47 Sensorineural hearing loss of bilateral ears 221746778 H90.3 [id number] Audiologic al evaluation results: 10/23/2024 Right ear: Normal through 3 kHz sloping to a mild sensorineu ral hearing loss with excellent word recognitio n. Left ear: Mild rising to normal sloping to moderate sensorineu ral hearing loss with excellent word recognitio n. Tympanomet ry: Right Ear:Type Ad Left Ear:Type A Impacted c erumen in left ear 1359864449 194317 H61.22 2693438 [id number] STEVE CARRILLO HERNANDEZ - [address] [address] 11/15/2024 12:36:28 11/16/2024 13:07:37 Sensorineural hearing loss of bilateral ears 762620870 H90.3 [id number] Preet Gil DO [facility] [address] [address] 02/11/2025 09:25:36 02/11/2025 10:16:12 Sensorineural hearing loss of bilateral ears 458083666 H90.3 43564815 Impacted c erumen in left ear 6752399973 126215 H61.22 6924647 Mass of tongue 191019180 K14.8 4788447 6 mm base of tongue Health Concerns Section Related Observation LastModified by Organization Detai ls LastModified Time None Recorded Concern Status LastModified by Organization Details LastModified Time None Recorded Advance Directives Directive None Recorded Payers Insurance Date Sequence Insurance Name Policy Number Policy Reynaga Covered Member ID Reynaga Member ID Guarantor Name 02/11/2025 1 [facility] [id number] Armen Olson [id number] Armen Olson Notes Date Note Type Note Provider Name and Address Organization Details Recorded Time 10/08/2024 text/html ROS as noted in the [facility] 49yo male presents for evaluation [...] cervical fusion, and SINA. He works at [employer]. BAYRON WINSTON MD [address] [place] [address], [phone], [facility] 10/08/2024 12:19:23 10/23/2024 text/html ROS as noted in the [facility] 49-year-old male with longstanding left-sided sensorineural hearing loss and ETD presents for hearing evaluation. He used to wear left-sided amplification, but could not tolerate. Most recent audiogram was 20 years ago. Denies tinnitus or vertigo. Denies ear pain or drainage. Denies recurrent ear infections or prior ear surgeries. No history of loud noise exposure. Occasional Q tip use. He works at [employer]. 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 He was recently cleared for amplification for his left ear. He has tried hearing aids in the past without much success. He feels he does fine without any amplification. JOHNATHON POZO, AUD [address] [facility],[place] [address], [place], [address], [facility] - [facility] 11/15/2024 13:19:38 02/11/2025 text/html ROS as [...] Occasional Q tip use. He works at [employer]. Preet Gil, DO [address] [facility] [address], [place], [address], [facility] 02/11/2025 10:17:28
== END 2025-03-18 16:43 | disposition home or self-care (01) ==
LOC: HO.ACS 16:20
PROVIDERS: PCP Internal Medicine; Visit Provider Internal Medicine Medical Oncology
DX: Z79.01 Long term (current) use of anticoagulants (principal)

== ENCOUNTER → 2025-03-18 16:20 | Outpatient (BNVA) | payer OTHER, SELFPAY | PROVIDERS: PCP Internal Medicine; Visit Provider Internal Medicine Medical Oncology | DX: Z79.01 Long term (current) use of anticoagulants (principal) | CPT/HCPCS: 85610; 99211 ==

== ENCOUNTER 2025-04-08 16:38 | Outpatient (AMB) | payer OTHER, SELFPAY ==
--- NOTE | 2025-04-08 16:36 | MHC.OFFVISCO ---
Intake Intake Visit Reasons: Anticoagulation Allergies No Known Allergies Allergy (Verified 04/08/25 16:03) Medication List - Last Reconciled 04/08/25 by Kasandra Lockowod RN albuterol sulfate 90 mcg/actuation 0 mcg inhalation allopurinol 300 mg PO DAILY atorvastatin 20 mg PO QPM colchicine 0.6 mg PO BID PRN enoxaparin 100 mg subcut Q12H metformin ER 1,000 mg PO BID metolazone mg PO metoprolol succinate ER 50 mg PO DAILY spironolactone 100 mg PO BID torsemide 40 mg PO DAILY [VITAMIN D 3 PO] warfarin 5 mg See Protocol PO DAILY Nursing Note INR: 3.8 out of therapeutic range of 2.5-3.5 Scheduled for Parathyroidectomy 04/15/25 with 5 day hold of warfarin and lovenox bridging Medications and supplements reviewed Patient status: no changes Medications or supplements: no changes Diet: usual diet for pt Denies any signs and symptoms of bleeding or clotting or unusual bruising Bleeding, bruising, clotting discussed Nutritional guidance given: avoid greens postoperatively until INR>2.0 Dose: decrease today's dose from 10mg to 7.5mg, then usual dose of 7.5mg the next day then start the 5 day hold of warfarin. Start lovenox 100mg every 12 hours on 04/11/25 with last dose on 04/14/25(in am only this day). Pt to check with surgeon as to when is safe to restart anticoagulation and will start with usual dose of warfarin for that day and following days. Pt will restart lovenox every 12 hours and take until INR>2.[address] Lal cardiology F/U INR Date: 04/23/25, Pt will have a lab draw on 04/19/25 and pcp will manage as [facility] is closed this day.?? Patient verbalizing understanding of instructions with read back given. Anti-Coag Initial Assessment Social Hx Patient Tobacco Use Status: Never used Tobacco Coding Level of Care Code Est Patient Level 1 Diagnoses Current use of anticoagulant therapy Z79.01 Results AMB INR Fingerstick AMB INR Fingerstick 3.8 Last Edit by Kasandra Lockwood RN on 04/08/25 16:27 interface delay Assessment & Plan Assessment & Plan (1) Current use of anticoagulant therapy: Code(s): Z79.01 - joint terminal attack controller (current) use of anticoagulants Category: Medical Orders: Orders Prothrombin Time INR 04/19/25 Z79.01 - [facility] (current) use of anticoagulants
[2025-04-10 15:04] LABS: Prothrombin Time Whole Bld POC 45.7 sec (11.1-13.5); ~PT, ~INR - Anti Coag Clinic 3.8 (0.9-1.1)
== END 2025-04-08 16:48 | disposition home or self-care (01) ==
LOC: HO.ACS 16:38
PROVIDERS: PCP Internal Medicine; Visit Provider Internal Medicine Medical Oncology
DX: Z79.01 Long term (current) use of anticoagulants (principal)

== ENCOUNTER → 2025-04-08 16:38 | Outpatient (BNVA) | payer OTHER, SELFPAY | PROVIDERS: PCP Internal Medicine; Visit Provider Internal Medicine Medical Oncology | DX: Z79.01 Long term (current) use of anticoagulants (principal) | CPT/HCPCS: 85610; 99211 ==

== ENCOUNTER 2025-04-19 08:02 | Outpatient (REF) | payer OTHER, SELFPAY ==
--- OUTSIDE RECORDS SUMMARY | 2024-08-06 04:30 | XMS_ITS ---
Author Organization Lennox Tsang MD Address [address] [place] [address] [place] [phone] Care Team Providers Care Loom Tuner Name Role Phone Lennox Tsang Primary Care Provider [phone] REASON FOR VISIT INR Encounters Encounter Location Date Provider Diagnosis Lennox Tsang MD [address] [place] [address] [place] [phone] 08/06/2024 Lennox Tsang Plan Of Treatment Next Appt Details Provider Name:Lennox Reyes ier, 04/26/2025 07:00:00 AM, [address] [place] [address], [address], [phone], Provider Name:Lennox Reyes ier, 05/03/2025 02:30:00 PM, [address] [place] [address], [phone], Progress Notes * Ian HANOB:1975 (49 yo M)Acc No.[id number]:08/06/2024 Patient: Rob CarrTashaMagene :1975 A ge:49 Y S ex:Male Address:[address] [place] [address], [address], [place] [address] * true * Date: Generated for Printi ng/Faxing/eTransmitting on: 06/19/2024 08:06 AM EST
--- OUTSIDE RECORDS SUMMARY | 2024-08-06 10:00 | XMS_ITS ---
Author Organization Lennox Tsang MD Address [address] [place], [place] [id number] Care Team Providers Care Retail Product Demo Specialist Name Role Phone Lennox Tsang Primary Care Provider Allergies Allergen (clinical drug ingredient) Drug/Non Drug Allergy documented on EMR Reaction Allergy Type Onset Date Status ibuprofen Ibuprofen bleeding Drug Allergy Active REASON FOR VISIT 3 MO F/U Medications Medication SIG (Take, Route, Frequency, Duration) Notes Start Date End Date Status metFORMIN HCl 500 MG 2tablet with a meal Orally twice Active Warfarin Sodium 5 MG 2 tabs Orally Once a day for 90 days Active Albuterol Sulfate HFA 108 (90 Base) MCG/ACT 1 puff as needed Inhalation every 4 hrs for 30 days 05/06/2020 Active Colchicine 0.6 MG TAKE ONE TABLET TWO TIMES A DAY for 10 Active Celecoxib 200 MG 1 capsule with food Orally Once a day for 90 days Not-Taking Allopurinol 300 MG TAKE ONE TABLET BY MOUTH ONCE DAILY Orally Once a day for 90 days Active Atorvastatin Calcium 20 MG 1 tablet Oral ly Once a day 04/30/2024 Active Metoprolol Succinate ER 50 MG 50mg Orally Once a day Activ e Diprolene AF 0.05 % 1 application Externally Once a day for 90 days 04/14/2020 Active Docusate Sodium 100 MG 1 capsule as need ed Orally twice a day Active Torsemide 20 MG 2 tabs Q AM Orally Active Spironolactone 100 MG 1 tablet Orally BID Active Vital Signs Blood pressure systolic 102 mm Hg 03/17/20 25 Blood pressure diastolic 70 mm Hg 025 Height 64 in 08/06/2024 Weight 218 lbs 08/06/2024 BMI 37.42 kg/m2 08/06/2024 weight is up 3 pounds since 05-31-24 Encounters Encounter Location Date Provider Diagnosis Lennox Tsang MD [address] [place] [address] [place] [phone] 08/06/2024 Lennox Tsang Chronic systolic congestive heart failure I50.22 ; Obstructive sleep apnea syndrome G47.33 ; Aortic valve prosthesis present Z95.2 and Hypercholesteremia E78.00 Assessments Encounter Date Diagnosis (ICD Code) Assessment Notes Treatment Notes Treatment Clinical Notes Section Notes 08/06/2024 Chronic systolic congestive heart failure (ICD-10 - I50.22) stable, will continue current regiment 08/06/2024 Obstructive sleep apnea syndrome (ICD-10 - G47.33) using cpap 08/06/2024 Aortic valve prosthesis present (ICD-10 - Z95.2) has been doing well 08/06/2024 Hypercholesteremia (ICD-10 - E78.00) Plan Of Treatment Medication Medication Name Sig Start Date Stop Date Notes Atorvastatin Calcium 20 MG 1 tablet Orally Once a day 01/2024 Metoprolol Succinate ER 50 MG 50mg Orally Once a day Torsemide 20 MG 2 tabs Q AM Orally Spironolactone 100 MG 1 tablet Orally BID Treatment Notes Assessment Notes Chronic systolic congestive heart failur e stable, will continue current regiment Obstructive sleep apnea syndrome using c pap Aortic valve prosthesis present has been doing well Next Appt Details Follow Up: 6 Months, Reason: Provider Name:Lennox white, 04/26/2025 07:00:00 AM, [address] [place] [address], Suite [facility], [address], [place], [phone], Provider Name:Lennox white, 05/03/2025 02:30:00 PM, [address] [place] [address], [place] [address], [address], [place], [phone], Progress Notes * Ian HANOB:1975 (49 yo M)Acc No.[id number]:08/06/2024 Progress Notes Patient: Armen HAWKINS Provider: Remy Tsang MD :1975 A ge:49 Y S ex:Male Date:08/06/2024 Address:[address] [place] [address], [id number] Subjective: * Chief Complaints: * 3 MO F/U * HPI: S ymptom(s): patient is a 49 yo male here for 3 month follow up visit/ had biopsy of shoulder. is going back on coumadin had to stop coumadin . says he can't take lovenox. he will take his chances. feeling well. * ROS: G eneral/Constitutional: Denies C hills. D enies F atigue. D enies F ever. D enies H eadache. E NT: Denies S ore throat. R espiratory: Denies C ough. D enies S hortness of breath at rest. D enies S hortness of breath with exertion. G astrointestinal: Denies D iarrhea. D enies N ausea. * Medical History: * Surgical History: * Hospitalization/Major Diagno stic Procedure: * Medications: T akingDocusate Sodium 100 MG Capsule 1 capsule as needed Orally twice a day Diprolene AF 0.05 % Cream 1 application Externally Once a day Spironolactone 100 MG Tablet 1 tablet Orally BID Allopurinol 300 MG Tablet TAKE ONE TABLET BY MOUTH ONCE DAILY Orally Once a day Warfarin Sodium 5 MG Tablet 2 tabs Orally Once a day metFORMIN HCl 500 MG Tablet 2tablet with a meal Orally twice Torsemide 20 MG Tablet 2 tabs Q AM Orally Metoprolol Succinate ER 50 MG Tablet Extended Release 24 Hour 50mg Orally Once a day Atorvastatin Calcium 20 MG Tablet 1 tablet Orally Once a day Colchicine 0.6 MG Tablet TAKE ONE TABLET TWO TIMES A DAY Albuterol Sulfate HFA 108 (90 Base) MCG/ACT Aerosol Solution 1 puff as needed Inhalation every 4 hrs Taking Docusate Sodium 100 MG Capsule 1 capsule as needed Orally twice a day Taking Diprolene AF 0.05 % Cream 1 application Externally Once a day Taking Spironolactone 100 MG Tablet 1 tablet Orally BID Taking Allopurinol 300 MG Tablet TAKE ONE TABLET BY MOUTH ONCE DAILY Orally Once a day Taking Warfarin Sodium 5 MG Tablet 2 tabs Orally Once a day Taking metFORMIN HCl 500 MG Tablet 2tablet with a meal Orally twice Taking Torsemide 20 MG Tablet 2 tabs Q AM Orally Taking Metoprolol Succinate ER 50 MG Tablet Extended Release 24 Hour 50mg Orally Once a day Taking Atorvastatin Calcium 20 MG Tablet 1 tablet Orally Once a day Taking Colchicine 0.6 MG Tablet TAKE ONE TABLET TWO TIMES A DAY Taking Albuterol Sulfate HFA 108 (90 Base) MCG/ACT Aerosol Solution 1 puff as needed Inhalation every 4 hrs Not-Taking/PRNCelecoxib 200 MG Capsule 1 capsule with food Orally Once a day Medication List reviewed and reconciled with the patientNot-Taking/PRN Celecoxib 200 MG Capsule 1 capsule with food Orally Once a day Medication List reviewed and reconciled with the patient * Allergies: I buprofen: bleedingyes[Allergies Verified] Objective: * Vitals: H t: 64, Wt: 218, BMI:37.42, BP:102/70, Wt-k.88. weight is up 3 pounds since 05-31-24. * P ast Orders: L ab:Liver Panel (Order Date - 07/30/2024) (Collection Date & Time - 07/30/2024 07:00 AM) Value Reference Range Bilirubin Total 0.7 0.0-1.0 - mg/dL Bilirubin Direct 0.2 0.0-0.5 - mg/dL Aspartate Amino Transferase 29 5-37 - U/L Alanine Aminotransferase 32 0-40 - U/L Total Protein 7.8 6.5-8.0 - g/dL Albumin Level 4.2 3.5-5.0 - g/dL Alkaline Phosphatase 91 39-117 - U/L L ab:Blood Urea Nitrogen (Order Date - 07/30/2024) (Collection Date & Time - 07/30/2024 07:00 AM) Value Reference Range Blood Urea Nitrogen 27 H 9-16 - mg/dL L ab:Creatinine (Order Date - 07/30/2024) (Collection Date & Time - 07/30/2024 07:00 AM) Value Reference Range Creatinine 1.25 0.5-1.4 - mg/dL Estimated Glomerular Filt Rate > 60 - L ab:Lipid Panel (Order Date - 07/30/2024) (Collection Date & Time - 07/30/2024 07:00 AM) Value Reference Range Triglycerides 217 H <150 - mg/dL Cholesterol 171 <200 - mg/dL LDL Cholesterol Calculated 79 <100 - mg/dL HDL Cholesterol 49 >40 - mg/dL * Examination: G eneral Examination: GENERAL APPEARANCE: a lert, well hydrated, in no distress.? HEAD: n ormocephalic. SKIN: g ood turgor. HEART: n o murmurs, rubs, gallops, regular rate and rhythm.? LUNGS: n o wheezes, rales, rhonchi, good air movement, clear to auscultation bilaterally. Assessment: * Assessment: 1. C hronic systolic congestive heart failure - I50.22 (Primary) 2 . O bstructive sleep apnea syndrome - G47.33 3 . A ortic valve prosthesis present - Z95.2 4 . H ypercholesteremia - E78.00 Plan: * Treatment: 2. O bstructive sleep apnea syndrome Notes: using cpap 3. A ortic valve prosthesis present Notes: has been doing well 4. H ypercholesteremia Continue Atorvastatin Calcium Tablet, 20 MG, 1 tablet, Orally, Once a day. * Procedure Codes: * Follow Up: 6 Months * * Sign off status: Completed true * Provider: Remy Tsang MD Date: 0 08/06/2024 Generated for Gabriela velazquez/Sarah/Annabellaitting on: 06/19/2024 08:06 AM EST History and Physical Notes * HPI (History of Present Illness) Category Sub-Category Detail Notes Category Not es Symptom(s) patient is a 49 yo male here for 3 month follow up visit/ had biopsy of shoulder. is going back on coumadin had to stop coumadin . says he can't take lovenox. he will take his chances. feeling well Examination Category Sub-Category Detail Notes Category Not es General Examination GENERAL APPEARANCE: alert, w ell hydrated, in no distress HEAD: normocephalic HEART: no murmurs, rubs, ga llops, regular rate and rhythm LUNGS: no wheezes, rales, r honchi, good air movement, clear to auscultation bilaterally SKIN: good turgor
--- OUTSIDE RECORDS SUMMARY | 2024-09-10 07:21 | XMS_ITS ---
Author Organization Lennox Tsang MD Address [address] [place] [address] [phone] Care Team Providers Care Bonderizer Name Role Phone Lennox Tsang Primary Care Provider REASON FOR VISIT New Refill Request Medications Medication SIG (Take, Route, Fr equency, Duration) Notes Start Date End Date Status metFORMIN HCl 500 MG 2tablet with a meal Orally twice for 90 days Active Encounters Encounter Location Date Provider Diagnosis Lennox Tsang MD [address] [place] [address] [place] [phone] 09/10/2024 Lennox Tsang Plan Of Treatment Medication Medication Name Sig Start Date Stop Date Notes metFORMIN HCl 500 MG 2tablet with a meal Orally twice for 90 days Next Appt Details Provider Name:Lennox white, 04/26/2025 07:00:00 AM, [address] [place] [address], [phone], Provider Name:Lennox white, 05/03/2025 02:30:00 PM, [address] [place] [address], [phone], Progress Notes * Ian HANOB:1975 (49 yo M)Acc No.[id number]:09/10/2024 Patient: Armen HAWKINS :1975 A ge:49 Y S ex:Male Address:[address] [place] [address], [address], [place] [address] * Refills Refill metFORMIN HCl Tablet, 500 MG, Orally, 180, 2tablet with a meal, twice, 90 days, Refills=3 * true * Date: Generated for Gabriela velazquez/Sarah/Annabellaitting on: 06/19/2024 08:06 AM EST
--- OUTSIDE RECORDS SUMMARY | 2024-09-15 15:15 | XMS_ITS ---
Author Organization Lennox Tsang MD Address [address] [place] [phone] Care Team Providers Care Rn Staff Name Role Phone Lennox Tsang Primary Care Provider [phone] REASON FOR VISIT Metformin Refill Medications Medication SIG (Take, Route, Fr equency, Duration) Notes Start Date End Date Status metFORMIN HCl 500 MG 2tablet with a meal Orally twice a day for 90 days Active Encounters Encounter Location Date Provider Diagnosis Lennox Tsang MD [address] [place] [address] [place] [address] [phone] 09/15/2024 Lennox Tsang Plan Of Treatment Medication Medication Name Sig Start Date Stop Date Notes metFORMIN HCl 500 MG 2tablet with a meal Orally twice a day for 90 days Next Appt Details Provider Name:Lennox white, 04/26/2025 07:00:00 AM, [address] [place] [address], [phone], Provider Name:Lennox white, 05/03/2025 02:30:00 PM, [address] [place] [address], [address], [phone], Progress Notes * Ian HANOB:1975 (49 yo M)Acc No.[id number]:09/15/2024 Patient: Armen HAWKINS :1975 A ge:49 Y S ex:Male Address:[address] [place] [address], [address], [place] [address] * Refills Refill metFORMIN HCl Tablet, 500 MG, Orally, 360 Tablet, 2tablet with a meal, twice a day, 90 days, Refills=3 * true * Date: Generated for Gabriela velazquez/Sarah/Nahid on: 06/19/2024 08:05 AM EST
--- OUTSIDE RECORDS SUMMARY | 2024-11-02 02:15 | XMS_ITS ---
Author Organization Lennox Tsang MD Address [address] [place], [place] [phone] Care Team Providers Care Wastewater Plant Operator Name Role Phone Lennox Tsang Primary Care Provider Results Component Value Reference Range Notes Liver Panel Reviewed date:11/02/2024 12:41:22 PM Interpretation: Performing Lab:[facility], [address] [place] [phone] Notes/Report: Bilirubin Total 0.6 0.0-1.0 mg/dL Bilirubin Direct 0.2 0.0-0.5 mg/dL Aspartate Amino Transferase 45 5-37 U/L Slight Hemolysis.Interpret result with caution. Alanine Aminotransferase 31 0-40 U/L Total Protein 8.1 6.5-8.0 g/dL Albumin Level 4.9 3.5-5.0 g/dL Alkaline Phosphatase 85 39-117 U/L Lipid Panel with Reflex Reviewed date:11/02/2024 12:41:04 PM Interpretation: Performing Lab:[facility], [address] [place] [phone] Notes/Report: Triglycerides 176 <150 mg/dL Desirable Triglyceride: [...] Date Provider Diagnosis Lennox Tsang MD [address] [place] [address] [address] [place] [phone] 11/02/2024 Lennox Tsang Hypercholesteremia E 78.00 Assessments Encounter Date Diagnosis (ICD Code) Assessment Notes Treatment Notes Treatment Clinical Notes Section Notes 11/02/2024 Hypercholesteremia (ICD-10 - E78.00) Plan Of Treatment Next Appt Details Provider Name:Lennox white, 04/26/2025 07:00:00 AM, [address] [place] [address], Suite [facility], [place], [place], [phone], Provider Name:Lennox white, 05/03/2025 02:30:00 PM, [address] [place] [address], Suite [facility], [place], [place], [phone], Progress Notes * EMELY, IanOB:1975 (50 yo M)Acc No.[id number]:11/02/2024 Progress Note Patient: Armen HAWKINS Provider: Remy Tsang MD :1975 A ge:49 Y S ex:Male Date:11/02/2024 Address:[address] [place], [place] [phone] Subjective: * Chief Complaints: * 1 . [...] MD Date: 0 11/02/2024 Generated for Gabriela velazquez/Sarah/Nahid on: 06/19/2024 08:07 AM EST
--- OUTSIDE RECORDS SUMMARY | 2025-01-01 09:51 | XMS_ITS ---
Author Organization Lennox Tsang MD Address [address] [place] [phone] Care Team Providers Care Fraternity Adviser Name Role Phone Lennox Tsang Primary Care Provider REASON FOR VISIT Appointments Encounters Encounter Location Date Provider Diagnosis Lennox Tsang MD [address] [place] [address] [place] [phone] 01/01/2025 Lennox Tsang Plan Of Treatment Next Appt Details Provider Name:Lennox Reyes ierob, 04/26/2025 07:00:00 AM, [address] [place] [address], [address], [phone], Provider Name:Lennox Reyes ier, 05/03/2025 02:30:00 PM, [address] [place] [address], [phone], Progress Notes * Ian HANOB:1975 (49 yo M)Acc No.[id number]:01/01/2025 Patient: Rob CarrTasha Armen :1975 A ge:49 Y S ex:Male Address:[address] [place] [address], [address], [place] [address] * true * Date: Generated for Printi ng/Faxing/eTransmitting on: 06/19/2024 08:05 AM EST
--- OUTSIDE RECORDS SUMMARY | 2025-01-28 04:33 | XMS_ITS ---
Author Organization Lennox Tsang MD Address [address] [place] [phone] Care Team Providers Care Hide Measuring Machine Operator Name Role Phone Lennox Tsang Primary Care Provider [phone] REASON FOR VISIT New Refill Request Medications Medication SIG (Take, Route, Frequency, Duration) Notes Start Date End Date Status Atorvastatin Calcium 20 MG 1 tablet Oral ly Once a day for 90 days 04/30/2024 Active Warfarin Sodium 5 MG 2 tabs Orally Once a day for 90 days Active Encounters Encounter Location Date Provider Diagnosis Lennox Tsang MD [address] [place] [address] [address] [place] [phone] 01/28/2025 Lennox Tsang Hypercholesteremia E 78.00 Assessments [...] Details Provider Name:Lennox white, 04/26/2025 07:00:00 AM, [address] [place] [address], [address], [phone], Provider Name:Lennox white, 05/03/2025 02:30:00 PM, [address] [place] [address], [address], [phone], Progress Notes * Ian HANOB:1975 (49 yo M)Acc No.[id number]:01/28/2025 Patient: Armen HAWKINS :1975 A ge:49 Y S ex:Male Address:[address] [place] [address], [place] [address], [place] [address] * Refills Refill Atorvastatin Calcium Tablet, 20 MG, Orally, 90 Tablet, 1 tablet, Once a day, 90 days, Refills=3 Refill Warfarin Sodium Tablet, 5 MG, Orally, 180 Tablet, 2 tabs, Once a day, 90 days, Refills=4 * true * Date: Generated for Gabriela velazquez/Sarah/Annabellaitting on: 06/19/2024 08:06 AM EST
--- OUTSIDE RECORDS SUMMARY | 2025-01-28 04:36 | XMS_ITS ---
Author Organization Lennox Tsang MD Address [address] [place] [address] [place] [address] [phone] Care Team Providers Care Marketing Financial Analyst Name Role Phone Lennox Tsang Primary Care Provider REASON FOR VISIT Refill Request Encounters Encounter Location Date Provider Diagnosis Lennox Tsang MD [address] [place] [address] [address] [place] [phone] 01/28/2025 Lennox Tsang Plan Of Treatment Next Appt Details Provider Name:Lennox Reyes ierob, 04/26/2025 07:00:00 AM, [address] [place] [address], [address], [phone], Provider Name:Lennox Reyes ier, 05/03/2025 02:30:00 PM, [address] [place] [address], [phone], Progress Notes * Ian HANOB:1975 (49 yo M)Acc No.[id number]:01/28/2025 Patient: Rob CarrTashaArmen :1975 A ge:49 Y S ex:Male Address:[address] [place] [address], [address], [place] [address] * true * Date: Generated for Printi ng/Faxing/eTransmitting on: 06/19/2024 08:06 AM EST
--- OUTSIDE RECORDS SUMMARY | 2025-02-06 23:45 | XMS_ITS ---
Author Organization Lennox Tsang MD Address [address] [place] [address] [place] [phone] Care Team Providers Care Entry Level Chemist Name Role Phone Lennox Tsang Primary Care Provider REASON FOR VISIT 6 MO F/U Encounters Encounter Location Date Provider Diagnosis Lennox Tsang MD [address] [place] [address] [place] [phone] 02/07/2025 Lennox Tsang Plan Of Treatment Next Appt Details Provider Name:Lennox white, 04/26/2025 07:00:00 AM, [address] [place] [address], [address], [phone], Provider Name:Lennox white, 05/03/2025 02:30:00 PM, [address] [place] [address], [phone], Progress Notes * Ian HANOB:1975 (50 yo M)Acc No.[id number]:02/07/2025 Progress Notes Patient: Armen HAWKINS Provider: Remy Tsang MD :1975 A ge:50 Y S ex:Male Date:02/07/2025 Address:[address] [place] [address], [address], [place], [phone] Subjective: * Chief Complaints: * 1 . [...] 02/07/2025 Generated for Gabriela velazquez/Sarah/Nahid on: 1 06/19/2024 08:07 AM EST
--- OUTSIDE RECORDS SUMMARY | 2025-03-22 02:48 | XMS_ITS ---
Author Organization Lennox Tsang MD Address [address] [place] [phone] Care Team Providers Care Director [employer] Name Role Phone Lennox Tsang Primary Care Provider [phone] REASON FOR VISIT Metformin Medications Medication SIG (Take, Route, Fr equency, Duration) Notes Start Date End Date Status metFORMIN HCl 500 MG 2tablet with a meal Orally twice a day for 90 days Active Encounters Encounter Location Date Provider Diagnosis Lennox Tsang MD [address] [place] [address] [place] [phone] 03/22/2025 Lennox Tsang Plan Of Treatment Medication Medication Name Sig Start Date Stop Date Notes metFORMIN HCl 500 MG 2tablet with a meal Orally twice a day for 90 days Next Appt Details Provider Name:Lennox white, 04/26/2025 07:00:00 AM, [address] [place] [address], [phone], Provider Name:Lennox white, 05/03/2025 02:30:00 PM, [address] [place] [address], [address], [phone], Progress Notes * Ian HANOB:1975 (50 yo M)Acc No.[id number]:03/22/2025 Patient: Armen HAWKINS :1975 A ge:50 Y S ex:Male Address:[address] [place] [address], [address], [place] [address] * Refills Refill metFORMIN HCl Tablet, 500 MG, Orally, 360 Tablet, 2tablet with a meal, twice a day, 90 days, Refills=3 * true * Date: Generated for Gabriela velazquez/Sarah/Nahid on: 06/19/2024 08:07 AM EST
--- OUTSIDE RECORDS SUMMARY | 2025-04-19 08:05 | XMS_ITS | Encounter Summary ---
Author Organization [facility] Address [address] [place] [address] Phone Care Team Providers Care Asbestos Cement Sheet Supervisor Name Role Phone Lennox Tsang MD Primary Care Provider Encounter Details Date Type Department Care Team (Late st Contact Info) Description 04/20/2024 Orders Only [facility] [address] [place] [address] Preet Valenzuela DO [address] [place] [address] Hypokalemia; Heart failure with normal [...] Visit [facility] [address] [place] [address] Preet Valenzuela DO [address] [place] [address] documented as of this encounter Visit Diagnoses Diagnosis Hypokalemia Heart failure with normal ejection fraction (HCC) Hypercalcemia documented in this encounter Care Teams Asbestos Cement Sheet Supervisor Relationship Specialty Start Date End Date Lennox Tsang MD [address] [place] [address] [address] [place] PCP - General Internal Medicine 08/09/22 documented as of this encounter
--- OUTSIDE RECORDS SUMMARY | 2025-04-19 08:05 | XMS_ITS | Encounter Summary ---
Author Organization [facility] [place], Address [address] [place] [address] Phone Care Team Providers Care General Activities Therapist Name Role Phone Lennox Tsang MD Primary Care Provider Encounter Details Date Type Department Care Team (Late st Contact Info) Description 08/09/2022 Documentation Only [facility] [address] [place] [address] Lennox Tsang MD [address] [place] [address] [address] [place] [address] Social History Tobacco Use Types Packs/Day Years [...] Visit [facility] [address] [place] [address] Preet Valenzuela DO [address] [place] [address] documented as of this encounter Visit Diagnoses Not on filedocumented in this encounter Care Teams General Activities Therapist Relationship Specialty Start Date End Date Lennox Tsang MD [address] [place] [address] [address] [place] [address] PCP - General Internal Medicine 08/09/22 documented as of this encounter
--- OUTSIDE RECORDS SUMMARY | 2025-04-19 08:05 | XMS_ITS | Encounter Summary ---
Author Organization [facility] Address [address] [place] [address] Phone Care Team Providers Care Window Trimmer Apprentice Name Role Phone Lennox Tsang MD Primary Care Provider [phone] Encounter Details Date Type Department Care Team (Late st Contact Info) Description 01/27/2024 Orders Only [facility] [address] [place] [address] Preet Valenzuela DO [address] [facility] [address] [place] [address] Hypokalemia; Heart failure with normal [...] Visit [facility] [address] [place] [address] Preet Valenzuela DO [address] [place] [address] documented as of this encounter [...] Magnesium 1.6 1.6 - 2.3 mg/dL [facility] Blood specimen (specimen) Venous blood / Unknown 03/21/2024 9:00 AM EDT 03/21/2024 us Preet Valenzuela DO LAB BLOOD ORDERABLES Final Resu lt [facility] [address] [place] [address] * (ABNORMAL) Renal Function Panel (03/21/2024 9:00 AM EDT) Glucose 112(H) 70 - 99 mg/dL [facility] BUN 23 6 - 24 mg/dL [facility] Creatinine 1.23 0.76 - 1.27 mg/dL [facility] eGFR CKD-EPI CR 2020 72 >59 mL/min/1.7 3 [facility] BUN/Creatinine Ratio 19 9 - 20 [facility] Sodium 136 134 - 144 mmol/L [facility] Potassium 5.1 3.5 - 5.2 mmol/L [facility] Chloride 95(L) 96 - 106 mmol/L [facility] Bicarbonate (CO2) 21 20 - 29 mmol/L [facility] Calcium 9.7 8.7 - 10.2 mg/dL [facility] Phosphorus 2.3(L) 2.8 - 4.1 mg/dL [facility] Albumin 4.5 4.1 - 5.1 g/dL [facility] Blood specimen (specimen) Venous blood / Unknown 03/21/2024 9:00 AM EDT 03/21/2024 us Preet Valenzuela DO LAB BLOOD ORDERABLES Final Resu lt [facility] [address] [place] [address] documented in this encounter Visit Diagnoses Diagnosis Hypokalemia Heart failure with normal ejection fraction (HCC) Hypercalcemia documented in this encounter Care Teams Window Trimmer Apprentice Relationship Specialty Start Date End Date Lennox Tsang MD [address] [place] [address] [address] [place], [place] PCP - General Internal Medicine 08/09/22 documented as of this encounter
--- OUTSIDE RECORDS SUMMARY | 2025-04-19 08:05 | XMS_ITS | Clinical Summary ---
Author Organization [facility] [place] Address [address] [place] [address] Care Team Providers Care Electric Wirer Name Role Phone Lennox Tsang MD Primary Care Provider [phone] Allergies No known active allergies Medications spironolactone [...] M, W, Th, Sat, Sun. Coumadin clinic [facility] managing INR Active atorvastatin (LIPITOR) 20 mg tablet Take 1 tablet (20 mg total) by mouth at bedtime. Active metOLazone (ZAROXOLYN) 2.5 mg tablet TAKE 1 TABLET BY MOUTH THREE TIMES A WEEK. 36 tablet 2 Active Additional Information Patient taking differently:2.5 mg oral,(No frequency reported), 1-3 times a week, Reported on 03/22/2025 cholecalciferol (VITAMIN D-3) 25 mcg (1,000 unit) tablet Take 1 tablet (1,000 Units total) by mouth 1 (one) time each day. Active torsemide (DEMADEX) 20 mg tablet TAKE THREE TABLETS BY MOUTH EVERY MORNING AND TAKE TWO TABLETS EVERY EVENING 450 tablet 3 Active metoprolol succinate (TOPROL-XL) 50 mg 24 hr tablet Take 1 tablet (50 mg total) by mouth 1 (one) time each day. Take 1 Tablet by mouth daily. 1 tab in the morning 90 tablet 2 Active enoxaparin (LOVENOX) 100 mg/mL syringeIndicatio ns:H/O aortic valve replacement Inject 1 mL (100 mg total) under the skin every 12 (twelve) hours. 14 each 5 Active Active Problems Problem Noted Date Diagnosed Date H/O aortic valve replacement 09/11/2024 H/O aortic valve replacement 06/01/2024 Assessment & Plan (03/22/2025 5:28 PM EDT): Mechanical aortic valve replacement. Patient is presently being scheduled for parathyroid surgery organ to stop Coumadin 5 days prior to surgery. 2 days after stopping it he is getting it is an INR checked if is less than 2 we will start 100 mg of Lovenox SQ twice daily. His last dose will be on Tuesday morning prior to his third surgery date. He is to reinstitute the Lovenox and Coumadin once he gets the clearance from his surgeon. Orders: ECG 12 lead enoxaparin (LOVENOX) 100 mg/mL syringe; Inject 1 mL (100 mg total) under the skin every 12 (twelve) hours. Transthoracic echocardiogram (TTE) complete with PRN contrast, bubble, strain, and 3D order panel; Future Assessment & Plan (09/11/2024 1:03 PM EDT): [...] failure with p reserved ejection fraction (HFpEF) (CMS/[facility] V24, CMS/HCC V28) 05/17/2023 Assessment & Plan [...] Patient has upcoming echocardiogram scheduled. CHF exacerbation (CMS/[facility] V24, CMS/[facility] V28) 05/25 Assessment & Plan (03/22/2025 5:28 PM EDT): Patient with a history of heart failure most likely secondary to diastolic dysfunction. Volume is well-managed at this time. No need for any changes in medical therapy at this time Assessment & Plan (09/11/2024 1:03 PM EDT): History diastolic dysfunction, HFpEF volume fairly well-managed at the present time with as needed use of Zaroxolyn about twice a week to keep volume down. Patient's weight is down his breathing is better he is trying to exercise without limitations he said no chest pain. Transfer text Palpitations 06/22/2022 Diastolic heart failure (CMS/[facility] V24, CMS/[facility] V2 8) 01/02/2021 Assessment & Plan (03/22/2025 5:28 PM EDT): Patient with diastolic heart failure secondary to hypertrophic cardiomyopathy status post myomectomy and valve replacement. Patient is well-maintained as far as volume status at this time with no need for any changes Orders: ECG 12 lead Subaortic stenosis 06/02/2020 PVC (premature ventricular contraction) 06/02/19 21 Encounters Date Type Department Care Team Description 04/02/2025 Telephone [facility] Cardiology [facility] [address] [facility] [address] [place] [id number] Yvette Lal MD 03/26/2025 [address]phone [facility] [address] [facility] [address] [place] [address] Yvette Lal MD 03/22/2025 3:00 PM EDT Office Visit [facility] [address] [facility] [address] [place] [address] Yvette Lal MD Chronic diastolic heart failure (CMS/HCC V24, CMS/HCC V28) (Primary Dx); H/O aortic valve replacement; Acute on chronic diastolic congestive heart failure (CMS/HCC V24, CMS/HCC V28) from Last 3 Months Immunizations Immunization Administration Dates Next Due Moderna [...] Sign Reading Time Taken Comments Blood Pressure 126/70 03/22/2025 3:11 PM EDT Pulse 95 03/22/2025 3:11 PM EDT Temperature - - Respiratory Rate - - Oxygen Saturation 96% 03/22/2025 3:11 PM EDT Inhaled Oxygen Concentration - - Weight 98.4 kg (217 lb) 03/22/2025 3:11 PM EDT Height 162.6 cm (5' 4 ) 03/22/2025 3:11 PM EDT Body Mass Index 37.25 03/22/2025 3:11 PM EDT Plan of Treatment Health Maintenance Due Date Last Done Comments [...] BMP Blood Test 06/21/2023 Depression Screening 05/23/2024 COVID-19 Vaccine ( season) 2025 03/14/2024, 03/19/2021, 06/21/2020, Additional history exists RSV Immunization Adult Patients (1 - 1-dose 75+ series) 01/29/2051 Influenza Vaccine Completed 02/19/2025, , 03/02/2023, Additional history exists HIB Vaccines Aged Out [...] Date/Time Associated Diagnosis Comments ECG 12-LEAD Routine 03/22/2025 3:26 PM EDT Chronic diastolic heart failure (CMS/HCC V24, CMS/HCC V28) H/O aortic valve replacement from Last 3 Months Results * ECG 12 lead (03/22/2025 3:26 PM EDT) Ventricular Rate ECG 95 BPM GEMUSE Atrial Rate 95 BPM GEMUSE P-R Interval 124 ms GEMUSE QRS Duration 136 ms GEMUSE Q-T Interval 402 ms GEMUSE QTc 505 ms GEMUSE P Wave [place] 25 degrees GEMUSE R [place] 43 degrees GEMUSE T [place] -146 degrees GEMUSE ECG Interpretation Normal sinus rhythm Possible Left atrial enlargement Left bundle branch block Abnormal ECG When compared with ECG of 01-JUN-2024 08:17, No significant change was found Confirmed by Beba LAL, YVETTE ([id number]) on 03/22/2025 5:18:37 PM GEMUSE 03/22/2025 3:26 PM EDT 03/22/2025 5:18 PM EDT us Yvette Lal MD ECG ORDERABLES Final Result GEMUSE from Last 3 Months Insurance [facility] Care Teams Electric Wirer Relationship Specialty Start Date End Date Lennox Tsang MD [address] [place] [address] [address] [place] [address] PCP - General Internal Medicine 03/22/25
--- OUTSIDE RECORDS SUMMARY | 2025-04-19 08:06 | XMS_ITS | Encounter Summary ---
Author Organization [facility] Address [address] [place] [address] Phone Care Team Providers Care Pipe Insulator Helper Name Role Phone Lennox Tsang MD Primary Care Provider [phone]- [phone] Encounter Details Date Type Department Care Team (Late st Contact Info) Description 08/09/2024 Documentation Only [facility] [address] [place] [address] Preet Valenzuela DO [address] [place] [address] Social History Tobacco Use Types [...] Visit [facility] [address] [place] [address] Preet Valenzuela DO [address] [place] [address] documented as of this encounter Visit Diagnoses Not on filedocumented in this encounter Care Teams Pipe Insulator Helper Relationship Specialty Start Date End Date Lennox Tsang MD [address] [place], [place] PCP - General Internal Medicine 08/09/22 documented as of this encounter
--- OUTSIDE RECORDS SUMMARY | 2025-04-19 08:06 | XMS_ITS | Continuity of Care Document ---
Author Organization [place] - [facility], [facility] Address [address] [place] [address] Care Team Providers Care Business Line Controller Name Role Phone KHADIJAH GODWIN Primary Care Provider [phone] Assessment Encounter Date Assessment Date Assessment LastModified by Organization Details LastModified Time 02/11/2025 02/11/2025 49-year-old male with longstanding left-sided [...] Establish ed 15 2025 09:15A M Preet Gil, DO Not available Not available Not available Lab None recorded. Referral None recorded. Procedures None recorded. Surgeries None recorded. Imaging None recorded. Medication Orders None recorded. Patient TargetsNo targets recorded. Patient InstructionsNo instructions recorded. Reason for Referral None Reported. Results Created Date Observation Date Name Description Value Unit Range Abnormal Flag Note LastModifiedBy Organization Detail LastModifiedTime 02/12/2011/09/2024 CT, neck, soft tissu e, w/wo contr ast No observ ation record ed. [email or web address] Not Available 01/22 10:28:57 Result Notes None recorded. Problems Name Problem SNOMED Code Status Onset Date Resolution Date Notes Provider Name and Address Organization Details Recorded Time Impacted cerumen of bilateral ears 0962537408081 108 Active 2024 WENDY PATEL PA-C [address] [facility],[place] [address], [place], [address], [facility] - [facility] 5 12:06:34 Sensorineur al hearing loss of bilateral ears 780680517 Active 2024 STEVE CARRILLO [address] [facility],[place] [address], [place], [address], [facility] - [facility] 5 13:25:21 Impacted cerumen in left ear 2346068442720 101 Active 2024 WENDY PATEL PA-C [address] [facility],[place] [address], [place], [address], [facility] 5 15:20:29 Mass of tongue 601014045 Active 2024 Preet Gil DO [address] [place] [address],[place] [address], [place], [address], [facility] - [facility] 5 08:52:45 Problem Notes None recorded. Procedures Surgical History Date Name Laterality Status Provider Name and Address Organization Details Recorded Time FOL_normal_DHL completed Preet Gil DO [address] [facility],[address], [address], [facility] 02/11/2025 10:15:38 Comp Audio with Tymps - 53438 & 64873 completed STEVE CARRILLO [address] [facility], [place], [address], [facility] - [facility] 10/23/2024 13:25:16 5 Cerumen removal without microscope left completed WENDY PATEL PA-C [address] [facility], [place], [address], [facility] - [facility] 10/23/2024 15:21:03 5 Cerumen removal with microscope bilateral completed WENDY PATEL PA-C [address] [facility], [place], [address], [facility] - [facility] 10/08/2024 10:40:11 Imaging Results None recorded. Procedure [...] Available Not Available Vitals Date Recorded Body height Body mass index (BMI) Body weight Provider Name and Address Organization Details Last Updated DateTime 02/11/2025 162.56 cm 36.9 kg/m2 81838.36 g Jose Garcia [place] - [facility] 02/11/2025 09:31:06 Social History Question Answer Notes LastModified by Organizat ion Details LastModified Time Tobacco Smoking Status Never Smoker Kim boyle [place] - [facility] 10/08/2024 10:14:11 What Type Of Smoke Chaser Do You Use? None [email or web address] Information not available 10/08/2024 Do You Have Any Pets? No [email or web address] Information not available 10/08/2024 Are You Passively Exposed To Smoke? No Information not available 10/08/2024 Are There Any Smokers In Your House? No [email or web address] Information not available 10/08/2024 Sex: Unknown Functional Status Question Answer Note LastModified by Organization Details LastModified Time Do you use any illicit or recreational drugs? No [email or web address] Information not available 10/08/2024 Do you or have you ever used any other forms of tobacco or nicotine? No [email or web address] Information not available 10/08/2024 What is your level of alcohol consumption? 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 noExposureToExcessiveNoise [email or web address] Infor mation not available 10/08/2024 Mental Status None recorded. Family History Nothing Reported. Medical History Condition Response Allergies/Hayfever N Heart Problems Y Anxiety N Tonsil Infections N Emphysema N Migraines N Thyroid Problems Y Glaucoma N Depression N COPD N Developmental Delay N Nasal or Sinus Problems N Anemia N Immune System Disorder N Anesthesia Complications N Heart Attack ([place]) N Other Skin Condition N Diabetes Y [...] ICD10 Code Diagnosis IMO Codes Diagnosis Note [id number] Preet Gil DO [facility] [address] [place] [address] 02/11/2025 09:25:36 02/11/2025 10:16:12 Sensorineural hearing loss of bilateral ears 727426505 H90.3 64472351 Impacted c erumen in left ear 3760567083 237166 H61.22 1581499 Mass of tongue 477355663 K14.8 6881842 6 mm base of tongue Health Concerns Section Related Observation LastModified by Organization Detai ls LastModified Time None Recorded Concern Status LastModified by Organization Details LastModified Time None Recorded Payers Encounter Date Sequence Insurance Name Policy Number Policy Reynaga Covered Member ID Reynaga Member ID Guarantor Name 02/11/2025 1 [facility] [id number] Armen Olson [id number] Armen Olson Notes Date Note Type Note Provider Name and Address Organization Details Recorded Time 02/11/2025 text/html ROS as noted in the [...] Occasional Q tip use. He works at [employer]. Preet Gil DO [address] [place] [address], [address], [facility] - [facility] 02/11/2025 10:17:28
--- OUTSIDE RECORDS SUMMARY | 2025-04-19 08:06 | XMS_ITS | Encounter Summary ---
Author Organization [facility] Address [address] [place] [address] Phone Care Team Providers Care Premises Technician Name Role Phone Lennox Tsang MD Primary Care Provider +1- [phone] Encounter Details Date Type Department Care Team (Late st Contact Info) Description 09/21/2023 Documentation Only [facility] [address] [place] [address] Preet Valenzuela DO [address] [facility] [place] [address] Social History Tobacco Use Types [...] Visit [facility] [address] [place] [address] Preet Valenzuela DO [address] [facility] [place] [address] documented as of this encounter Visit Diagnoses Not on filedocumented in this encounter Care Teams Premises Technician Relationship Specialty Start Date End Date Lennox Tsang MD [address] [place], [place] PCP - General Internal Medicine 08/09/22 documented as of this encounter
--- OUTSIDE RECORDS SUMMARY | 2025-04-19 08:06 | XMS_ITS | Encounter Summary ---
Author Organization [facility] Address [address] [place] [address] Phone Care Team Providers Care Automation And Controls Instructor Name Role Phone Lennox Tsang MD Primary Care Provider [phone]- [phone] Encounter Details Date Type Department Care Team (Late st Contact Info) Description 09/21/2023 Documentation Only [facility] [address] [place] [address] Preet Valenzuela DO [address] [facility] [address] [place] [address] Social History Tobacco Use Types [...] [facility] [address] [place] [address] Preet Valenzuela DO [address] [facility] [address] [place] [address] documented as of this encounter Visit Diagnoses Not on filedocumented in this encounter Care Teams Automation And Controls Instructor Relationship Specialty Start Date End Date Lennox Tsang MD [address] [place], [place] PCP - General Internal Medicine 08/09/22 documented as of this encounter
--- OUTSIDE RECORDS SUMMARY | 2025-04-19 08:07 | XMS_ITS | Patient Health Record ---
Author Organization [facility] Address [address] [facility] [facility] [address] [place] [address] Care Team Providers Care Community Service Manager Name Role Phone Lennox Tsang Primary [...] Status Risk Notes Problem Atherosclerosis of artery (180552484) Arterial atherosclerosis (I70.8) Active confirmed Plan Of Treatment Pending Test Test Name Order Date EMIL 04/19/2022 Ultrasound : Artery Doppler Low Ext Bila t 04/19/2022 X ray : Foot, left 3v 04/19/2022 Insurance Providers Payer Name Payer Address Payer Phone Subscriber Number Group Number Insured Name Patient Relationship to Insured Coverage Start Date Coverage End Date [facility] [address] [place], [place] [address] [id number] Armen Olson Self - patient is the [...]
--- OUTSIDE RECORDS SUMMARY | 2025-04-19 08:07 | XMS_ITS | Encounter Summary ---
Author Organization [facility] [place], Address [address] [place] [address] Phone Care Team Providers Care Wood Patternmaker Name Role Phone Lennox Tsang MD Primary Care Provider Encounter Details Date Type Department Care Team (Late st Contact Info) Description 10/05/2024 Orders Only [facility] [address] [place] [address] Preet Valenzuela DO [address] [place] [address] Hypokalemia; Heart failure with normal ejection fraction (HCC); Hypercalcemia Social History Tobacco Use Types Packs/Day Years Used Date Smoking Tobacco: Never Assessed Sex and Gender Information Value Date Recorded Sex Assigned at Not on file Legal Sex Male 10:58 AM EDT Gender Identity Not on file Sexual Orientation Not on file documented as of this encounter Functional Status * BP Answer Date of Assessment Author 118/72 10/05/2024 2:46 PM EDT Silas Valenzuela DO * Pulse Answer Date of Assessment Author 70 10/05/2024 2:46 PM EDT Silas Valenzuela DO * BP Answer Date of Assessment Author 118/72 10/05/2024 2:46 PM EDT Silas Valenzuela DO documented as of this encounter Plan of Treatment Upcoming Encounters Date Type Department Care Team (Late st Contact Info) Description 10/03/2025 3:00 PM EDT Office Visit [facility] [address] [place] [address] Preet Valenzuela, [address] [place] [address] documented as of this encounter Visit Diagnoses Diagnosis Hypokalemia Heart failure with normal ejection fraction (HCC) Hypercalcemia documented in this encounter Care Teams Wood Patternmaker Relationship Specialty Start Date End Date Lennox Tsang MD [address] [place] [address] [address] [place], [place] PCP - General Internal Medicine 08/09/22 documented as of this encounter
--- OUTSIDE RECORDS SUMMARY | 2025-04-19 08:07 | XMS_ITS | Clinical Summary ---
Author Organization [facility], Address [address] [place] [address] Phone Care Team Providers Care Rn Cardiology Name Role Phone Lennox Tsang MD Primary [...] Visit [facility] [address] [place] [address] Preet Valenzuela DO [address] [place] [address] Health Maintenance Due Date Last [...] Screening: Sigmoidoscopy 01/29/[address] [place] [address] [facility] Care Teams Rn Cardiology Relationship Specialty Start Date End Date Lennox Tsang MD [address] [place] [address] [address] [place] [address] PCP - General Internal Medicine 08/09/22
--- OUTSIDE RECORDS SUMMARY | 2025-04-19 08:07 | XMS_ITS | Encounter Summary ---
Author Organization [facility] [place], Address [address] [place] [address] Phone Care Team Providers Care Flight Attendant/Inflight Supervisor Name Role Phone Lennox Tsang MD Primary Care Provider Reason for Visit * Reason Comments Med Refill Encounter Details Date Type Department Care Team (Late st Contact Info) Description 08/29/2023 Refill [facility] [address] [place] [address] Preet Valenzuela DO [address] [place] [address] Hypokalemia; Heart failure with normal [...] Visit [facility] [address] [place] [address] Preet Valenzuela DO [address] [place] [address] documented as of this encounter Visit Diagnoses Diagnosis Hypokalemia Heart failure with normal ejection fraction (HCC) documented in this encounter Care Teams Flight Attendant/Inflight Supervisor Relationship Specialty Start Date End Date Lennox Tsang MD [address] [place], [place] PCP - General Internal Medicine 08/09/22 documented as of this encounter
--- OUTSIDE RECORDS SUMMARY | 2025-04-19 08:07 | XMS_ITS | Encounter Summary ---
Author Organization [facility] Address [address] [place] [address] Phone Care Team Providers Care Safety Security Officer Name Role Phone Lennox Tsang MD Primary Care Provider Encounter Details Date Type Department Care Team (Late st Contact Info) Description 01/06/2023 Documentation Only [facility] [address] [place] [phone] Preet Valenzuela DO [address] [place] [phone] Social History Tobacco Use Types Packs/Day Years [...] Visit [facility] [address] [place] [id number] Preet Valenzuela DO [address] [place] [phone] Scheduled Orders Name Type Priority Associated Diagnoses [...] 10:08 AM EST) Creatinine, Urine 165.1 MG/DL [facility] Comment: Testing performed or reported by [facility], a Service of [facility], [address] [place] [id number] Stephen Buckley MD, Manager Visual CLIA# [id number] Urine specimen (specimen) Urine specimen obtained by clean catch procedure / Unknown 06/01/2023 10:08 AM EST 06/01/2023 10:34 AM EST Preet [facility] URINE ORDERABLES Final Resu lt Performing Organization Address [facility] Co de Phone Number [facility] * (ABNORMAL) PTH, intact (06/01/2023 10:08 AM EST) PTH, Intact 124(H) (15-65) PG/ML [facility] Comment: Testing performed or reported by [facility], a Service of [facility], [address] [place] [id number] Stephen Buckley MD, Manager Visual CLIA# [id number] Blood specimen (specimen) Venous blood / Unknown 06/01/2023 10:08 AM EST 06/01/2023 10:33 AM EST Preet [facility] BLOOD ORDERABLES Final Resu lt Performing Organization Address City/[facility]/ZIP Co de Phone Number [facility] documented in this encounter Visit Diagnoses Diagnosis Hypercalcemia- Primary documented in this encounter Care Teams Safety Security Officer Relationship Specialty Start Date End Date Lennox Tsang MD [address] [place], [place] PCP - General Internal Medicine 08/09/22 documented as of this encounter
--- OUTSIDE RECORDS SUMMARY | 2025-04-19 08:07 | XMS_ITS | Patient Health Record ---
Author Organization Lennox Tsang MD Address [address] [place], [place] [address] Care Team Providers Care Hand Buffer Name Role Phone Lennox Tsang Primary Care Provider Allergies Allergen (clinical drug ingredient) Drug/Non Drug Allergy documented on EMR Reaction Allergy Type Onset Date Status ibuprofen Ibuprofen bleeding Drug Allergy Active Results Component Value Reference Range Notes Liver Panel Reviewed date:07/30/2024 06:02:36 PM Interpretation: Performing Lab:[facility], [address] [place] [phone] Notes/Report: Bilirubin Total 0.7 0.0-1.0 mg/dL Bilirubin Direct 0.2 0.0-0.5 mg/dL Aspartate Amino Transferase 29 5-37 U/L Alanine Aminotransferase 32 0-40 U/L Total Protein 7.8 6.5-8.0 g/dL Albumin Level 4.2 3.5-5.0 g/dL Alkaline Phosphatase 91 39-117 U/L Blood Urea Nitrogen Reviewed date:07/30/2024 06:02:51 PM Interpretation: Performing Lab:[facility], [address] [place] [phone] Notes/Report: Blood Urea Nitrogen 27 9-16 mg/dL Creatinine Reviewed date:07/30/2024 06:02:43 PM Interpretation: Performing Lab:[facility], [address] [place] [phone] Notes/Report: Creatinine 1.25 0.5-1.4 mg/dL Estimated Glomerular Filt Rate > 60 Chronic Kidney Disease: Estimated GFR < 60 mL/min/1.73m2 Severe Kidney Disease: Estimated GFR < 15 mL/min/1.73m2 Lipid Panel Reviewed date:07/30/2024 06:02:22 PM Interpretation: Performing Lab:[facility], [address] [place] [phone] Notes/Report: Triglycerides 217 <150 mg/dL Desirable Triglyceride: [...] Panel Reviewed date:11/02/2024 12:41:22 PM Interpretation: Performing Lab:[facility], [address] [place] [phone] Notes/Report: Bilirubin Total 0.6 0.0-1.0 mg/dL Bilirubin Direct 0.2 0.0-0.5 mg/dL Aspartate Amino Transferase 45 5-37 U/L Slight Hemolysis.Interpret result with caution. Alanine Aminotransferase 31 0-40 U/L Total Protein 8.1 6.5-8.0 g/dL Albumin Level 4.9 3.5-5.0 g/dL Alkaline Phosphatase 85 39-117 U/L Lipid Panel with Reflex Reviewed date:11/02/2024 12:41:04 PM Interpretation: Performing Lab:[facility], [address] [place] [phone] Notes/Report: Triglycerides 176 <150 mg/dL Desirable Triglyceride: [...] PM Interpretation:see back 05-31-2024 Performing Lab: Notes/Report: [address] [address] XRay Report Signed Patient: Armen Olson MR#: [id number] : 1975 Acct:[id number] Age/Sex: 49 / M ADM Date: 05/30/24 Loc: HO.LAB Attending Dr: Lennox Tsang MD Ordering Physician: Lennox Tsang MD Date of Service: 05/30/24 Procedure(s): XR ribs LT min 3V w CXR1V Accession Number(s): [id number] cc: Lennox Tsang MD CLINICAL HISTORY: FELL [...] in OV> 05/30/24704 DD/ 2 TD/TT: 05/30/24702 [employer]: [address] [place] [address] XRay Report Signed Patient: Armen Olson MR #: [id number] : 1975 Acct:[id number] Age/Sex: 49 / M ADM Date: 05/30/24 Loc: HO.LAB Attending Dr: Lennox Tsang MD Ordering Physician: Lennox Tsang MD Date of Service: 05/30/24 Procedure(s): XR rib s LT min 3V w CXR1V Accession Number(s): [id number] cc: Lennox Tsang MD CLINICAL HISTORY: FE [...] OV> 05/30/24704 DD/ 2 TD/TT: 05/30/24 07 [employer]: Raudel Costa Reviewed date:07/30/2024 12:44:46 PM Interpretation: Performing Lab:[facility], [address] [place] [phone] Notes/Report: Raudel Costa See Note Specimen held untested for 24 hours; Call to request Chemistry testing. INR WHOLE BLOOD POC Reviewed date:08/16/2024 10:45:38 AM Interpretation: Performing Lab:[facility], [address] [place] [phone] Notes/Report: PT, INR - [facility] 4.0 0.9-1.1 METER #: [id number] INTERNATIONAL NORMALIZED RATIO (INR) REFERENCE RANGES Reference [...] OC Reviewed date:08/16/2024 10:45:10 AM Interpretation: Performing Lab:[facility], [address] [place] [phone] Notes/Report: Prothrombin Time Whole Bld POC 48.1 11.1-13.5 sec INR WHOLE BLOOD POC Reviewed date:10/12/2024 12:18:05 PM Interpretation: Performing Lab:[facility], [address] [place] [phone] Notes/Report: PT, INR - [facility] 3.8 0.9-1.1 METER #: [id number] INTERNATIONAL NORMALIZED RATIO (INR) REFERENCE RANGES Reference [...] OC Reviewed date:10/12/2024 12:17:08 PM Interpretation: Performing Lab:[facility], [address] [place] [phone] Notes/Report: Prothrombin Time Whole Bld POC 45.0 11.1-13.5 sec INR WHOLE BLOOD POC Reviewed date:10/25/2024 12:36:37 PM Interpretation: Performing Lab:[facility], [address] [place] [phone] Notes/Report: PT, INR - [facility] 3.8 0.9-1.1 METER #: [id number] INTERNATIONAL NORMALIZED RATIO (INR) REFERENCE RANGES Reference [...] OC Reviewed date:10/25/2024 12:38:11 PM Interpretation: Performing Lab:[facility], [address] [place] [phone] Notes/Report: Prothrombin Time Whole Bld POC 45.1 11.1-13.5 sec Hold Gold Reviewed date:11/02/2024 12:40:55 PM Interpretation: Performing Lab:[facility], [address] [place] [phone] Notes/Report: Hold Gold See Note Specimen held untested for 24 hours; Call to request Chemistry testing. INR WHOLE BLOOD POC Reviewed date:11/09/2024 12:09:03 PM Interpretation: Performing Lab:[facility], [address] [place] [phone] Notes/Report: PT, INR - [facility] 2.5 0.9-1.1 METER #: [id number] INTERNATIONAL NORMALIZED RATIO (INR) REFERENCE RANGES Reference [...] OC Reviewed date:11/09/2024 04:30:54 PM Interpretation: Performing Lab:[facility], [address] [place] [phone] Notes/Report: Prothrombin Time Whole Bld POC 29.5 11.1-13.5 sec INR WHOLE BLOOD POC Reviewed date:11/20/2024 10:24:22 AM Interpretation: Performing Lab:[facility], [address] [place] [phone] Notes/Report: PT, INR - [facility] 4.1 0.9-1.1 METER #: [id number] INTERNATIONAL NORMALIZED RATIO (INR) REFERENCE RANGES Reference [...] OC Reviewed date:11/20/2024 10:24:14 AM Interpretation: Performing Lab:[facility], [address] [place] [phone] Notes/Report: Prothrombin Time Whole Bld POC 49.3 11.1-13.5 sec INR WHOLE BLOOD POC Reviewed date:12/04/2024 12:19:35 PM Interpretation: Performing Lab:[facility], [address] [place] [phone] Notes/Report: PT, INR - [facility] 4.9 0.9-1.1 METER #: [id number] INTERNATIONAL NORMALIZED RATIO (INR) REFERENCE RANGES Reference [...] OC Reviewed date:12/04/2024 12:19:18 PM Interpretation: Performing Lab:[facility], [address] [place] [phone] Notes/Report: Prothrombin Time Whole Bld POC 58.7 11.1-13.5 sec INR WHOLE BLOOD POC Reviewed date:12/18/2024 12:43:44 PM Interpretation: Performing Lab:[facility], [address] [place] [phone] Notes/Report: PT, INR - [facility] 3.9 0.9-1.1 METER #: [id number] INTERNATIONAL NORMALIZED RATIO (INR) REFERENCE RANGES Reference [...] OC Reviewed date:12/18/2024 12:43:52 PM Interpretation: Performing Lab:[facility], [address] [place] [phone] Notes/Report: Prothrombin Time Whole Bld POC 47.0 11.1-13.5 sec INR WHOLE BLOOD POC Reviewed date:12/24/2024 04:37:33 PM Interpretation: Performing Lab:[facility], [address] [place] [phone] Notes/Report: PT, INR - [facility] 2.0 0.9-1.1 METER #: [id number] INTERNATIONAL NORMALIZED RATIO (INR) REFERENCE RANGES Reference [...] OC Reviewed date:12/24/2024 04:37:23 PM Interpretation: Performing Lab:[facility], [address] [place] [phone] Notes/Report: Prothrombin Time Whole Bld POC 24.3 11.1-13.5 sec INR WHOLE BLOOD POC Reviewed date:12/31/2024 05:48:15 PM Interpretation: Performing Lab:[address] [phone] Notes/Report: PT, INR - [facility] 2.6 0.9-1.1 METER #: [id number] INTERNATIONAL NORMALIZED RATIO (INR) REFERENCE RANGES Reference [...] OC Reviewed date:12/31/2024 05:45:34 PM Interpretation: Performing Lab:[facility], [address] [place] [phone] Notes/Report: Prothrombin Time Whole Bld POC 30.8 11.1-13.5 sec INR WHOLE BLOOD POC Reviewed date:01/15/2025 02:51:48 PM Interpretation: Performing Lab:[facility], [address] [place] [phone] Notes/Report: PT, INR - [facility] 3.4 0.9-1.1 METER #: [id number] INTERNATIONAL NORMALIZED RATIO (INR) REFERENCE RANGES Reference [...] OC Reviewed date:01/15/2025 04:43:48 PM Interpretation: Performing Lab:[facility], [address] [place] [phone] Notes/Report: Prothrombin Time Whole Bld POC 41.4 11.1-13.5 sec INR WHOLE BLOOD POC Reviewed date:02/04/2025 04:43:47 PM Interpretation: Performing Lab:[facility], [address] [place] [phone] Notes/Report: PT, INR - [facility] 3.3 0.9-1.1 METER #: [id number] INTERNATIONAL NORMALIZED RATIO (INR) REFERENCE RANGES Reference [...] OC Reviewed date:02/04/2025 04:43:55 PM Interpretation: Performing Lab:[facility], [address] [place] [phone] Notes/Report: Prothrombin Time Whole Bld POC 39.4 11.1-13.5 sec INR WHOLE BLOOD POC Reviewed date:02/27/2025 08:08:45 AM Interpretation: Performing Lab:[facility], [address] [place] [phone] Notes/Report: PT, INR - [facility] 2.6 0.9-1.1 METER #: [id number] INTERNATIONAL NORMALIZED RATIO (INR) REFERENCE RANGES Reference [...] OC Reviewed date:02/27/2025 08:08:37 AM Interpretation: Performing Lab:[facility], [address] [place] [phone] Notes/Report: Prothrombin Time Whole Bld POC 31.4 11.1-13.5 sec INR WHOLE BLOOD POC Reviewed date:03/19/2025 12:41:47 PM Interpretation: Performing Lab:[facility], [address] [place] [phone] Notes/Report: PT, INR - [facility] 2.9 0.9-1.1 METER #: [id number] INTERNATIONAL NORMALIZED RATIO (INR) REFERENCE RANGES Reference [...] Prothrombin Time Whole Bld P OC Reviewed date:03/19/2025 12:41:38 PM Interpretation: Performing Lab:[facility], [address] [place] [phone] Notes/Report: Prothrombin Time Whole Bld POC 35.0 11.1-13.5 sec INR WHOLE BLOOD POC Reviewed date:04/11/2025 12:47:05 PM Interpretation: Performing Lab:[facility], [address] [place] [phone] Notes/Report: PT, INR - [facility] 3.8 0.9-1.1 METER #: [id number] INTERNATIONAL NORMALIZED RATIO (INR) REFERENCE RANGES Reference [...] Prothrombin Time Whole Bld P OC Reviewed date:04/11/2025 12:46:47 PM Interpretation: Performing Lab:[address] [phone] Notes/Report: Prothrombin Time Whole Bld POC 45.7 11.1-13.5 sec Reason For Referral Reason HYPERPARATHYROIDISM [...] BY MOUTH ONCE DAILY for 90 Active metFORMIN HCl 500 MG 2tablet with a meal Orally twice a day for 90 days Active Albuterol [...] Once a day for 90 days Not-Taking Immunizations Vaccine Route Administration Date Status Comme [...] Problem Status W/U Status Risk Notes Problem 13876811 Rectal bleeding (K62.5) Active confirmed Problem Gout (19196907) Gout (M10.9) Active confirmed Problem Hypomagnesemia (992461662) Hypomagnesemia (E83.42) Active confirmed Problem Hypercalcemia (52799495) Hypercalcemia (E83.52) Active confirmed Problem 881145164 Other ascites (R18.8) Active confirme d Problem 0167317936182 Aortic valve prosthesis present (Z95.2) Active confirmed Problem 743976166 Chronic systolic congestive heart failure (I50.22) Active confirmed Problem 53901992 Obstructive slee p apnea syndrome (G47.33) Active confirmed Problem 66024167 Hyperparathyroid ism (E21.3) Active confirmed Problem 48150614 Intrinsic eczema (L20.84) Active confirmed Problem 884719244 Leukocytosis, unspecified type (D72.829) Active confirmed Problem 95395215 Arthralgia, unspecified joint (M25.50) Active confirmed Problem 06289388 Cardiac asthma (I50.1) Active confirmed Problem 479775306 Fatty liver (K76.0) Active confirmed Problem Chronic systolic heart failure (774714598) Chronic systolic CHF (congestive heart failure) (I50.22) Active confirmed Problem 34969256 Hypercholesterem ia (E78.00) Active confirmed Problem 625138329 Type 2 diabetes mellitus without complication, without long-term current use of insulin (E11.9) Active confirmed Problem 050013296 Mild intermitten t asthmatic bronchitis with acute exacerbation (J45.21) Active confirmed Problem 056043189047274 Acute drug-induc ed gout of foot, unspecified laterality (M10.279) Active confirmed Problem 947516497 Obesity (BMI 35.0-39.9 without comorbidity) (E66.9) Active confirmed Vital Signs Blood pressure diastolic 70 mm Hg 08/06/2024 tanya ght is up 3 pounds since 05-31-24 Height 64 in 08/06/2024 weight is up 3 pounds since 05-31-24 Blood pressure systolic 102 mm Hg 08/06/2024 shelly ht is up 3 pounds since 05-31-24 Weight 218 lbs 08/06/2024 weight is up 3 pounds since 05-31-24 BMI 37.42 kg/m2 08/06/2024 weight is up 3 pounds since 05-31-24 Encounters Encounter Location Date Provider Diagnosis Lennox Tsang MD [address] [place] [id number] 07/30/2024 Lennox Tsang Hyperparathyroidism E21.3 Lennox Tsang MD [address] [place] [id number] 11/02/2024 Lennox Tsang Hypercholesteremia E 78.00 Lennox Tsang MD [address] [place] [address] [id number] 04/30/2024 Lennox Bombardier Hyperparathyroidism E21.3 ; Encounter for general adult medical examination without abnormal findings Z00.00 ; Hypercholesteremia E78.00 and Chronic systolic congestive heart failure I50.22 Lennox Tsang MD [address] [place] [address] [id number] 05/29/2024 Lennox Tsang Fall on stairs, init ial encounter W10.9XXA and Closed fracture of one rib of left side, initial encounter S22.32XA Lennox Tsang MD [address] [place] [address] [id number] 05/31/2024 Lennox Tsang Chronic systolic congestive heart failure I50.22 Lennox Tsang MD [address] [place] [address] [id number] 08/06/2024 Lennox Tsang Chronic systolic congestive heart failure I50.22 ; Obstructive sleep apnea syndrome G47.33 ; Aortic valve prosthesis present Z95.2 and Hypercholesteremia E78.00 Lennox Tsang MD [address] [place] [address] [id number] 08/03/2024 Lennox Tsang MD [address] [place] [address] [id number] 08/06/2024 Lennox Tsang MD [address] [place] [address] [id number] 05/28/2024 Lennox Tsang MD [address] [place] [id number] 05/30/2024 Lennox Tsang MD [address] [place] [address] [id number] 07/18/2024 Lennox Tsang MD [address] [place] [address] [id number] 07/20/2024 Lennox Tsang COVID-19 U07.1 Lennox Tsang MD [address] [place] [address] [id number] 07/23/2024 Lennox Tsang MD [address] [place] [address] [id number] 07/23/2024 Lennox Tsang MD [address] [place] [address] [id number] 09/10/2024 Lennox Tsang MD [address] [place] [address] [id number] 09/15/2024 Lennox Tsang MD [address] [place] [address] [id number] 01/01/2025 Lennox Tsang MD [address] [place] [address] [id number] 01/28/2025 Lennox Tsang Hypercholesteremia E 78.00 Lennox Tsang MD [address] [place] [address] [id number] 01/28/2025 Lennox Tsang MD [address] [place] [address] [id number] 03/22/2025 Lennox Tsang Assessments Encounter Date Diagnosis (ICD Code) Assessment Notes Treatment Notes Treatment Clinical Notes Section Notes 07/30/2024 Hyperparathyroidism (ICD-10 - E21.3) 11/02/2024 Hypercholesteremia (ICD-10 - E78.00) 04/30/2024 Hyperparathyroidism (ICD-10 - E21.3) referral to [facility] endocrine/ REFERRAL MADE TO ENDOCRINE , WILL FAX AFTER CASE LOCKED 04/30/2024 Encounter for genera l adult medical examination without abnormal findings (ICD-10 - Z00.00) Labs reviewed and discussed with patient 05/29/2024 Fall on stairs, init ial encounter (ICD-10 - W10.9XXA) pending diagnostic testing, order faxed to [facility] Patient Reg 05/29/2024 Closed fracture of o [...] Test Test Name Order Date Electrocardiogram (EKG) 02/10/2018 Electrocardiogram (EKG) 10/20/2012 XR CHEST 2 VIEW PA & LAT 05/25/2022 Next Appt Details Provider Name:Lennox drummondr, 04/26/2025 07:00:00 AM, [address] [place] [address], [address], [place], [place], [id number], Provider Name:Lennox drummondr, 05/03/2025 02:30:00 PM, [address] [place] [address], [address], [place], [place], [id number], Insurance Providers Payer Name Payer Address Payer Phone Subscriber Number Group Number Insured Name Patient Relationship to Insured Coverage Start Date Coverage End Date [address] [place] [phone] [id number] ; [id number] Armen Olson Self - patient is the insured Medical (General) History Medical History History ICD Code Hx of Umbilical Hernia discussed colonoscopy and he wants to wait: 11/24/22 colonoscopy tubular adenoma. repeat in 5 years Prediabetes R73.09 Surgical History Surgery Date(Month/Year) aortic valve replacement 2001 cervical spine fusion
--- OUTSIDE RECORDS SUMMARY | 2025-04-19 08:07 | XMS_ITS | Encounter Summary ---
Author Organization [facility] Address [address] [place] [address] Phone Care Team Providers Care Wound Care Nurse Name Role Phone Lennox Tsang MD Primary Care Provider Encounter Details Date Type Department Care Team (Late st Contact Info) Description 07/13/2024 Orders Only [facility] [address] [address] Preet Valenzuela DO [address] [facility] [address] [place] [address] Hypokalemia; Heart failure with normal [...] Visit [facility] [address] [address] Preet Valenzuela DO [address] [facility] [address] [address] documented as of this encounter Visit Diagnoses Diagnosis Hypokalemia Heart failure with normal ejection fraction (HCC) Hypercalcemia documented in this encounter Care Teams Wound Care Nurse Relationship Specialty Start Date End Date Lennox Tsang MD [address] [place] [address] [address] [place] PCP - General Internal Medicine 08/09/22 documented as of this encounter
--- OUTSIDE RECORDS SUMMARY | 2025-04-19 08:07 | XMS_ITS | Encounter Summary ---
Author Organization [facility] Address [address] [place] [address] Phone Care Team Providers Care Head Of Talent Management Name Role Phone Lennox Tsang MD Primary Care Provider [phone] Encounter Details Date Type Department Care Team (Late st Contact Info) Description 09/01/2023 Documentation Only [facility] [address] [place] [address] Preet Valenzuela DO [address] [facility] [address] [place] [address] Social History Tobacco Use Types [...] Visit [facility] [address] [place] [address] Preet Valenzuela DO [address] [place] [address] documented as of this encounter Visit Diagnoses Not on filedocumented in this encounter Care Teams Head Of Talent Management Relationship Specialty Start Date End Date Lennox Tsang MD [address] [place], [place] PCP - General Internal Medicine 08/09/22 documented as of this encounter
--- OUTSIDE RECORDS SUMMARY | 2025-04-19 08:07 | XMS_ITS | Data Portability ---
Author Organization [place] - [facility], Allergy Address [address] [address] Care Team Providers Care Financial Institution Branch Manager Name Role Phone KHADIJAH GODWIN Primary Care [...] pursing due to limited finances. F/U PRN. [email or web address] Not available 11/15/2024 13:19:16 02/11/2025 02/11/2025 49-year-old [...] contr ast No observ ation record ed. [email or web address] Not Available 01/22 10:28:57 Result Notes None recorded. Problems Name Problem SNOMED Code Status Onset Date Resolution Date Notes Provider Name and Address Organization Details Recorded Time Impacted cerumen of bilateral ears 6663684197547 108 Active 2024 WENDY PATEL PA-C 100 [facility] [place],[address] [facility], [place], [address], [place] - [facility] [place] 5 12:06:34 Sensorineur al hearing loss of bilateral ears 101387725 Active 2024 JOHNATHON POZO, AUD 100 [facility] [place],[address], [place], [address], [place] - [facility] [place] 13:25:21 Impacted cerumen in left ear 7033551694604 101 Active 2024 WENDY PATEL PA-C 100 [facility] [place],[address] [facility], [place], [address], [place] - [facility] [place] 15:20:29 Mass of tongue 660128265 Active 2024 Preet Gil, DO 100 [facility], E [facility], [place], [address], [place] - [facility] [place] 5 08:52:45 Problem Notes None recorded. Procedures Surgical History Date Name Laterality Status Provider Name and Address Organization Details Recorded Time 5 FOL_normal_DHL completed Preet Gil DO 100 [facility],[address], [address], [place] - [facility] [place] 02/11/2025 10:15:38 5 Comp Audio with Tymps - 92874 & 94273 completed JOHNATHON POZO, AUD 100 [facility] [place],[address], [address], [place] - [facility] [place] 10/23/2024 13:25:16 5 Cerumen removal without microscope left completed WENDY PATEL PA-C 100 [facility] [place],[address], [address], [place] - [facility] [place] 10/23/2024 15:21:03 05/19/202 5 Cerumen removal with microscope bilateral completed WENDY PATEL PA-C [address], [address], [facility] - [facility] 10/08/2024 10:40:11 Imaging Results None recorded. [...] Address Organization Details Last Updated DateTime 10/08/2024 07541.77 g 36.7 kg/m2 162.56 cm Kim Galo [place] - [facility] 10/08/2024 10:13:37 Date Recorded Body height Body mass index (BMI) Body weight Provider Name and Address Organization Details Last Updated DateTime 10/23/2024 162.56 cm 36.9 kg/m2 97351.36 g Agustina Reyes [facility] 10/23/2024 13:45:09 Date Recorded Body height Body mass index (BMI) Body weight Provider Name and Address Organization Details Last Updated DateTime 02/11/2025 162.56 cm 36.9 kg/m2 40111.36 g Jose Garcia [facility] 02/11/2025 09:31:06 Social History Question Answer Notes LastModified by Organizat ion Details LastModified Time Tobacco Smoking Status Never Smoker Kim boyle [facility] 10/08/2024 10:14:11 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 None Information not available 10/08/2024 Do You Have Any Pets? No [email or web address] Information not available 10/08/2024 Are You Passively Exposed To Smoke? No [email or web address] Information not available 10/08/2024 Are There Any Smokers In Your House? No [email or web address] Information not available 10/08/2024 Sex: Unknown Functional Status Question Answer Note LastModified by Organization Details LastModified Time Do you use any illicit or recreational drugs? No [email or web address] Information not available 10/08/2024 Do you or have you ever used any other forms of tobacco or nicotine? No [email or web address] Information not available 10/08/2024 What is your level of alcohol consumption? 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 noExposureToExcessiveNoise [email or web address] Infor mation not available 10/08/2024 Mental Status None recorded. Family History Nothing Reported. Medical History Condition Response Allergies/Hayfever N Heart Problems Y Anxiety N Tonsil Infections N Emphysema N Migraines N Thyroid Problems Y Glaucoma N Depression N COPD N Developmental Delay N Nasal or Sinus Problems N Anemia N Immune System Disorder N Anesthesia Complications N Heart Attack ([place]) N Other Skin Condition N Diabetes Y [...] ICD10 Code Diagnosis IMO Codes Diagnosis Note [id number] WENDY PATEL PA-C [facility] [address] [address] 10/08/2024 09:55:54 10/08/2024 10:46:57 Impacted cerumen of bilateral ears 6083008383 704283 H61.23 108333 Hearing lo ss of left ear 787418844 H91.92 17134138 [id number] WENDY PATEL PA-C [facility] [address] [address] 10/23/2024 13:00:43 10/23/2024 14:37:47 Sensorineural hearing loss of bilateral ears 720730227 H90.3 41110699 Audiologic al evaluation results: 10/23/2024 Right ear: Normal through 3 kHz sloping to a mild sensorineu ral hearing loss with excellent word recognitio n. Left ear: Mild rising to normal sloping to moderate sensorineu ral hearing loss with excellent word recognitio n. Tympanomet ry: Right Ear:Type Ad Left Ear:Type A Impacted c erumen in left ear 9965332594 544234 H61.22 8978815 [id number] STEVE CARRILLO HERNANDEZ - [address] [address] 11/15/2024 12:36:28 11/16/2024 13:07:37 Sensorineural hearing loss of bilateral ears 684590490 H90.3 03935749 [id number] Preet Gil DO [facility] [address] [address] 02/11/2025 09:25:36 02/11/2025 10:16:12 Sensorineural hearing loss of bilateral ears 895209787 H90.3 27968278 Impacted c erumen in left ear 7307223831 362876 H61.22 1281035 Mass of tongue 707682694 K14.8 4171198 6 mm base of tongue Health Concerns Section Related Observation LastModified by Organization Detai ls LastModified Time None Recorded Concern Status LastModified by Organization Details LastModified Time None Recorded Advance Directives Directive None Recorded Payers Insurance Date Sequence Insurance Name Policy Number Policy Reynaga Covered Member ID Reynaga Member ID Guarantor Name 02/11/2025 1 [facility] [id number] 3 Armen Olson [id number] Armen Olson Notes Date Note Type Note Provider Name and Address Organization Details Recorded Time 10/08/2024 text/html ROS as noted in the [facility] 49yo male presents for evaluation of the [...] cervical fusion, and SINA. He works at [employer]. BAYRON WINSTON MD [address] [place] [address], [address], [facility] 10/08/2024 12:19:23 10/23/2024 text/html ROS as noted in the [facility] 49-year-old male with longstanding left-sided sensorineural hearing loss and ETD presents for hearing evaluation. He used to wear left-sided amplification, but could not tolerate. Most recent audiogram was 20 years ago. Denies tinnitus or vertigo. Denies ear pain or drainage. Denies recurrent ear infections or prior ear surgeries. No history of loud noise exposure. Occasional Q tip use. He works at [employer]. MAGALIS GAONA MD [address] [place] [address], [address], [facility] 10/23/2024 16:09:53 11/15/2024 text/html Patient has a known asymmetrical SNHL >AD. He was recently cleared for amplification for his left ear. He has tried hearing aids in the past without much success. He feels he does fine without any amplification. JOHNATHON POZO, AUD 100 [facility],[place] [address], [place], [address], [facility] - [facility] 11/15/2024 13:19:38 02/11/2025 text/html ROS as [...] Occasional Q tip use. He works at [employer]. Preet Gil, DO 100 [facility], [place], [address], [facility] 02/11/2025 10:17:28
--- OUTSIDE RECORDS SUMMARY | 2025-04-19 08:08 | XMS_ITS | Patient Health Record ---
Author Organization [facility] Address [address] [place] [address] Care Team Providers Care Fishing Tool Technician Oil Well Name Role Phone Sharan DIAZ, Lennox Primary Care Provider Gurjit Goodman Unavailable [phone] Allergies No Known Allergies Reason For Referral No Information Medications Medication SIG (Take, Route, Frequency, Duration) Notes Start Date End Date Status Warfarin Sodium 5 MG Tablet Oral; Duration: 90 Active Allopurinol 300 MG Tablet Oral; Duration: 90 Active Torsemide 20 MG Tablet Oral; Duration: 90 Active metOLazone 2.5 MG Tablet Oral; Duration: 84 Active Mag-Oxide 200 MG Tablet as directed Orally Active Metoprolol Succinate ER 50 MG Tablet Extended Release 24 Hour Oral; Duration: 90 Active Spironolactone 25 MG Tablet Oral; Duration: 30 Active Potassium Chloride Eli ER 20 MEQ Tablet Extended Release Oral; Duration: 30 Active Immunizations Vaccine Route Administration Date Status Comme nts Influenza Unknown 02/20/2022 Administered Social History Tobacco Use: Social History Observation Description Date Details (start date - stop date) Never Smoker NA - NA Social History Drugs/Alcohol: Social Info Question Answer Notes Alcohol Screen Did you have a drink containing alcohol in the past year? 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 [employer] Section Notes: Nonsmoker; no sig alcohol Problems Problem Type SNOMED Code ICD Code Onset Dates Problem Status W/U Status Risk Notes Problem Rectal bleeding (57819207) Rectal bleeding (K62.5) Active confirmed Problem Screening for malignant neoplasm of colon (425935765) Encounter for screening for malignant neoplasm of colon (Z12.11) Active confirmed Problem Diverticular disease of colon (611393034) Diverticulosis of large intestine without perforation or abscess without bleeding (K57.30) Active confirmed Plan Of Treatment Pending Test Test Name Order Date Pathology 11/24/2022 Future Test Test Name Order Date COLONOSCOPY 10/01/2022 Insurance Providers Payer Name Payer Address Payer Phone Subscriber Number Group Number Insured Name Patient Relationship to Insured Coverage Start Date Coverage End Date [facility] [address] [place] [address] [id number] SARINA HAN Self - patient is the insured Medical (General) History Medical History History ICD Code Denies MS,DM,CVA,Lung disease,renal dise ase 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 Lal in [place] Sleep apnea-CPAP Arrhythmia with PVC's Gout He describes that he has bee n told at [facility] that he is a difficult intubation Surgical History Surgery Date(Month/Year) Heart surgery for IHSS--his heart surgery in 2001 involved replacement of the aortic valve with a [facility] Fu[facility] valve 1984,1988,2001 Cervical spine fusion C1-C5 1988 Hernia repair--Bilateral inguinal and um bilical 2011,2014,2017, Tonsillectomy and adenoidectomy
--- OUTSIDE RECORDS SUMMARY | 2025-04-19 08:08 | XMS_ITS | Encounter Summary ---
Author Organization [facility] Address [address] [place] [address] Care Team Providers Care Form Setter Supervisor Name Role Phone Lennox Tsang MD Primary Care Provider [phone]- [phone] Reason for Visit * Reason Onset Date Comments Scheduling 03/26/2025 Encounter Details Date Type Department Care Team (Late st Contact Info) Description 03/26/2025 Telephone [facility] [address] [place] [phone] Zac Lal MD [address] [place] [address] [address] [place] [phone] Social History Tobacco Use Types Packs/Day Years [...] on file documented as of this encounter Progress Notes * Elva Barajas - 04/16/2025 8:39 AM EST Per 04/02 encounter this has been scheduled. * Elva Barajas - 03/26/2025 8:48 AM EST Patient needs echo to be scheduled at [facility] due to HNE plan. Please see order from SANGEETA, requestedaround 04/21/25, DX: H/O aortic valve replacement [Z95.2] . Thank you! documented in this encounter Plan of Treatment Not on file documented as of this encounter Visit Diagnoses Not on filedocumented in this encounter Care Teams Form Setter Supervisor Relationship Specialty Start Date End Date Lennox Tsang MD [address] [place] [address] [place] [address] PCP - General Internal Medicine 03/22/25 documented as of this encounter
[2025-04-19 08:37] LABS: Prothrombin Time 15.8 SEC (11.2-13.5)
[2025-04-19 09:17] LABS: INTERNATIONAL NORM RATIO 1.3 (0.9-1.1)
== END 2025-04-19 08:03 | disposition home or self-care (01) ==
LOC: HO.LAB 08:02
PROVIDERS: Visit Provider Internal Medicine Medical Oncology
DX: Z51.81 Encounter for therapeutic drug level monitoring (principal); Z79.01 Long term (current) use of anticoagulants
CPT/HCPCS: 36415; 85610

== ENCOUNTER 2025-04-24 06:03 | Outpatient (REF) | payer OTHER, SELFPAY ==
--- OUTSIDE RECORDS SUMMARY | 2025-04-24 06:06 | XMS_ITS | Data Portability ---
Author Organization [place] - [facility], Allergy Address 100 [facility] 100 [place] [address] Care Team Providers Care Supervisor Game Farm Name Role Phone KHADIJAH GODWIN Primary Care [...] pursing due to limited finances. F/U PRN. [email or web address] Not available 11/15/2024 13:19:16 02/11/2025 02/11/2025 49-year-old [...] contr ast No observ ation record ed. [email or web address] Not Available 01/22 10:28:57 Result Notes None recorded. Problems Name Problem SNOMED Code Status Onset Date Resolution Date Notes Provider Name and Address Organization Details Recorded Time Impacted cerumen of bilateral ears 1607407044657 108 Active 2024 WENDY PATEL PA-C 100 [facility] [place],[address] [facility], [place], [address], [place] - [facility] [place] 5 12:06:34 Sensorineur al hearing loss of bilateral ears 110980705 Active 2024 JOHNATHON POZO, AUD 100 [facility] [place],[address], [place], [address], [place] - [facility] [place] 13:25:21 Impacted cerumen in left ear 6115933093584 101 Active 2024 WENDY PATEL PA-C 100 [facility] [place],[address] [facility], [place], [address], [place] - [facility] [place] 15:20:29 Mass of tongue 166133290 Active 2024 Preet Gil, DO 100 [facility], E [facility], [place], [address], [place] - [facility] [place] 5 08:52:45 Problem Notes None recorded. Procedures Surgical History Date Name Laterality Status Provider Name and Address Organization Details Recorded Time 5 FOL_normal_DHL completed Preet Gil DO 100 [facility],[address], [address], [place] - [facility] [place] 02/11/2025 10:15:38 5 Comp Audio with Tymps - 09247 & 64914 completed JOHNATHON POZO, AUD 100 [facility] [place],[address], [address], [place] - [facility] [place] 10/23/2024 13:25:16 5 Cerumen removal without microscope left completed WENDY PATEL PA-C 100 [facility] [place],[address], [address], [place] - [facility] [place] 10/23/2024 15:21:03 05/19/202 5 Cerumen removal with microscope bilateral completed WENDY PATEL PA-C 100 [facility],[place] [address], [place], [address], [facility] - [facility] 10/08/2024 10:40:11 Imaging Results None recorded. Procedure Notes None recorded. Medical Equipment None Reported. Medications Name Sig Start Date Stop Date Status Note LastModified by Organization Details LastModified Time metolazone 2.5 mg tablet TAKE 1 TABLET BY MOUTH THREE TIMES A WEEK active Not Available Not Available No t Available metformin 500 mg tablet TAKE 2 TABLETS BY MOUTH TWO TIMES A DAY WITH A MEAL active Not Available Not Available No t Available atorvastati n 20 mg tablet TAKE 1 TABLET BY MOUTH EVERY DAY active Not Available Not Available No t Available torsemide 20 mg tablet active Not Available Not Available Not Available benzonatate 200 mg capsule TAKE 1 CAPSULE BY MOUTH THREE TIMES A DAY FOR 7 DAYS NEEDED FOR COUGH 10/04 completed Not Available Not Available Not Available metoprolol succinate ER 50 mg tablet,exte nded release 24 hr TAKE 1 TABLET BY MOUTH EVERY DAY IN THE MORNING active Not Available Not Available No t Available prednisone 20 mg tablet TAKE 2 TABLETS BY MOUTH DAILY WITH FOOD OR MILK FOR 5 DAYS active Not Available Not Available No t Available spironolact one 100 mg tablet TAKE 1 TABLET BY [...] No t Available albuterol sulfate HFA 90 mcg/actuati on aerosol inhaler active Not Available Not Available Not Available colchicine 0.6 mg tablet active Not Available Not Available Not Available fluticasone propionate 50 mcg/actuati on nasal spray,suspe nsion USE 1 SPRAY IN EACH NOSTRIL TWICE A DAY active Not Available Not Available No t Available metformin ER 500 mg tablet,exte nded release 24 hr active Not Available Not Available Not Available oxycodone 5 mg tablet TAKE 1 TABLET BY MOUTH EVERY 6 HOURS NEEDED FOR SEVERE PAIN active Not Available Not Available No t Available enoxaparin 100 mg/mL subcutaneou s syringe INJECT THE CONTENTS OF 1 SYRINGE SUBCUTANE OUSLY EVERY 12 HOURS active Not Available Not Available No t Available Vitals Date Recorded Body weight Body mass index (BMI) Body height Provider Name and Address Organization Details Last Updated DateTime 10/08/2024 83379.77 g 36.7 kg/m2 162.56 cm Kim Galo [place] - [facility] 10/08/2024 10:13:37 Date Recorded Body height Body mass index (BMI) Body weight Provider Name and Address Organization Details Last Updated DateTime 10/23/2024 162.56 cm 36.9 kg/m2 16983.36 g Agustina Reyes [place] - [facility] 10/23/2024 13:45:09 Date Recorded Body height Body mass index (BMI) Body weight Provider Name and Address Organization Details Last Updated DateTime 02/11/2025 162.56 cm 36.9 kg/m2 15949.36 g Jose Garcia [place] - [facility] 02/11/2025 09:31:06 Social History Question Answer Notes LastModified by Organizat ion Details LastModified Time Tobacco Smoking Status Never Smoker Kim boyle [place] - [facility] 10/08/2024 10:14:11 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 None [email or web address] Information not available 10/08/2024 Do You Have Any Pets? No [email or web address] Information not available 10/08/2024 Are You Passively Exposed To Smoke? No [email or web address] Information not available 10/08/2024 Are There Any Smokers In Your House? No [email or web address] Information not available 10/08/2024 Sex: Unknown Functional Status Question Answer Note LastModified by Organization Details LastModified Time Do you use any illicit or recreational drugs? No Information not available 10/08/2024 Do you or have you ever used any other forms of tobacco or nicotine? No [email or web address] Information not available 10/08/2024 What is your level of alcohol consumption? 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 noExposureToExcessiveNoise [email or web address] Infor mation not available 10/08/2024 Mental Status [...] N Immune System Disorder N Heart Attack ([place]) N Other Skin Condition N Diabetes Y Rhinitis N Bleeding Disorder N Food Allergy N Hyperlipidemia Y Dementia N Nasal polyps N Asthma N Sleep Disorder Y GERD/Reflux N Hypertension N Past Encounters Encounter ID Performer Location Encounter Start Date Encounter Closed Date Diagnosis/Indication Diagnosis SNOMED-CT Code Diagnosis ICD10 Code Diagnosis IMO Codes Diagnosis Note [id number] WENDY PATEL PA-C [facility] [address] [address] 10/08/2024 09:55:54 10/08/2024 10:46:57 Impacted cerumen of bilateral ears 5978772210 113621 H61.23 617116 Hearing lo ss of left ear 060665747 H91.92 57233010 [id number] WENDY PATEL PA-C [facility] [address] [address] 10/23/2024 13:00:43 10/23/2024 14:37:47 Sensorineural hearing loss of bilateral ears 546245381 H90.3 [id number] Audiologic al evaluation results: 10/23/2024 Right ear: Normal through 3 kHz sloping to a mild sensorineu ral hearing loss with excellent word recognitio n. Left ear: Mild rising to normal sloping to moderate sensorineu ral hearing loss with excellent word recognitio n. Tympanomet ry: Right Ear:Type Ad Left Ear:Type A Impacted c erumen in left ear 3946423743 267935 H61.22 [id number] STEVE CARRILLO HERNANDEZ - [place] [address] [place], [place] [address]Lance ite [address] [place] [address] 11/15/2024 12:36:28 11/16/2024 13:07:37 Sensorineural hearing loss of bilateral ears 749003286 H90.3 [id number] Preet Gil, DO [facility] 100 [place] [address] 02/11/2025 09:25:36 02/11/2025 10:16:12 Sensorineural hearing loss of bilateral ears 124185998 H90.3 [id number] Impacted c erumen in left ear 6352856569 815179 H61.22 3071130 Mass of tongue 868108535 K14.8 1497128 6 mm base of tongue Health Concerns Section Related Observation LastModified by Organization Detai ls LastModified Time None Recorded Concern Status LastModified by Organization Details LastModified Time None Recorded Advance Directives Directive None Recorded Payers Insurance Date Sequence Insurance Name Policy Number Policy Reynaga Covered Member ID Reynaga Member ID Guarantor Name 04/23/[address] [facility] [id number] 3 Armen Olson [id number] Armen Olson Notes Date Note Type Note Provider Name and Address Organization Details Recorded Time 10/08/2024 text/html ROS as noted in the HPI 49yo male presents for evaluation of the [...] cervical fusion, and SINA. He works at [employer]. BAYRON WINSTON MD [address], [address], [facility] - [facility] 10/08/2024 12:19:23 10/23/2024 text/html ROS as noted in the [facility] 49-year-old male with longstanding left-sided sensorineural hearing loss and ETD presents for hearing evaluation. He used to wear left-sided amplification, but could not tolerate. Most recent audiogram was 20 years ago. Denies tinnitus or vertigo. Denies ear pain or drainage. Denies recurrent ear infections or prior ear surgeries. No history of loud noise exposure. Occasional Q tip use. He works at [employer]. MAGALIS GAONA MD 100 [facility],[place] [address], [place], [address], [facility] 10/23/2024 16:09:53 11/15/2024 text/html Patient has a known asymmetrical SNHL >AD. He was recently cleared for amplification for his left ear. He has tried hearing aids in the past without much success. He feels he does fine without any amplification. JOHNATHON POZO, STEVE 100 [facility],[address], [address], [facility] 11/15/2024 13:19:38 02/11/2025 text/html ROS as noted [...] Occasional Q tip use. He works at [employer]. Preet Gil, DO 100 [facility], [place], [address], [facility] 02/11/2025 10:17:28
--- OUTSIDE RECORDS SUMMARY | 2025-04-24 06:06 | XMS_ITS | Continuity of Care Document ---
Author Organization [place] - [facility], [facility] Address [address] [place] [address] Care Team Providers Care Contact Officer Name Role Phone KHADIJAH GODWIN Primary Care [...] contr ast No observ ation record ed. [email or web address] Not Available 01/22 10:28:57 Result Notes None recorded. Problems Name Problem SNOMED Code Status Onset Date Resolution Date Notes Provider Name and Address Organization Details Recorded Time Impacted cerumen of bilateral ears 7881711789792 108 Active 2024 WENDY PATEL PA-C [address] [facility],[place] [address], [place], [address], [facility] - [facility] [place] 5 12:06:34 Sensorineur al hearing loss of bilateral ears 251036003 Active 2024 STEVE CARRILLO [address] [facility],[place] [address], [place], [address], [facility] - [facility] [place] 5 13:25:21 Impacted cerumen in left ear 8836876631498 101 Active 2024 WENDY PATEL PA-C [address] [facility],[place] [address], [place], [address], [facility] 5 15:20:29 Mass of tongue 856965496 Active 2024 Preet Gil DO [address] [place] [address],[place] [address], [place], [address], [facility] - [facility] 5 08:52:45 Problem Notes None recorded. Procedures Surgical History Date Name Laterality Status Provider Name and Address Organization Details Recorded Time FOL_normal_DHL completed Preet Gil DO [address] [facility],[address], [address], [facility] 02/11/2025 10:15:38 Comp Audio with Tymps - 96339 & 24680 completed STEVE CARRILLO [address] [facility],[address], [place], [address], [facility] - [facility] 10/23/2024 13:25:16 5 Cerumen removal without microscope left completed WENDY PATEL PA-C [address] [facility],[address], [place], [address], [facility] - [facility] 10/23/2024 15:21:03 5 Cerumen removal with microscope bilateral completed WENDY PATEL PA-C [address] [facility],[address], [place], [address], [facility] - [facility] 10/08/2024 10:40:11 Imaging Results None recorded. Procedure [...] No t Available Vitals Date Recorded Body height Body mass index (BMI) Body weight Provider Name and Address Organization Details Last Updated DateTime 02/11/2025 162.56 cm 36.9 kg/m2 50483.36 g Jose Garcia [place] - [facility] 02/11/2025 09:31:06 Social History Question Answer Notes LastModified by Organizat ion Details LastModified Time Tobacco Smoking Status Never Smoker Kim boyle [place] - [facility] 10/08/2024 10:14:11 What Type Of Syrup Mixer Do You Use? None [email or web address] Information not available 10/08/2024 Do You Have Any Pets? No [email or web address] Information not available 10/08/2024 Are You Passively Exposed To Smoke? No [email or web address] Information not available 10/08/2024 Are There Any Smokers In Your House? No [email or web address] Information not available 10/08/2024 Sex: Unknown Functional Status Question Answer Note LastModified by Organization Details LastModified Time Do you use any illicit or recreational drugs? No [email or web address] Information not available 10/08/2024 Do you or have you ever used any other forms of tobacco or nicotine? No [email or web address] Information not available 10/08/2024 What is your level of alcohol consumption? 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 noExposureToExcessiveNoise [email or web address] Infor mation not available 10/08/2024 Mental Status None recorded. Family History Nothing Reported. Medical History Condition Response Allergies/Hayfever N Heart Problems Y Anxiety N Tonsil Infections N Emphysema N Migraines N Thyroid Problems Y Glaucoma N Depression N COPD N Developmental Delay N Nasal or Sinus Problems N Anemia N Immune System Disorder N Anesthesia Complications N Heart Attack (DE) N Other Skin Condition N Diabetes Y [...] ICD10 Code Diagnosis IMO Codes Diagnosis Note [id number] Preet Gil DO [facility] of [address] [address] 02/11/2025 09:25:36 02/11/2025 10:16:12 Sensorineural hearing loss of bilateral ears 401651856 H90.3 [id number] Impacted c erumen in left ear 4306016064 231714 H61.22 2588919 Mass of tongue 719094856 K14.8 8351807 6 mm base of tongue Health Concerns Section Related Observation LastModified by Organization Detai ls LastModified Time None Recorded Concern Status LastModified by Organization Details LastModified Time None Recorded Payers Encounter Date Sequence Insurance Name Policy Number Policy Reynaga Covered Member ID Reynaga Member ID Guarantor Name 02/11/[address] [place] [address] [id number] Armen Olson [id number] Armen Wesley Notes Date Note Type Note Provider Name [...] Occasional Q tip use. He works at [employer]. Preet Gil, [address] [facility],[place] [address], [place], [address], [facility] - [facility] 02/11/2025 10:17:28
[2025-04-24 07:29] LABS: INTERNATIONAL NORM RATIO 1.5 (0.9-1.1); Prothrombin Time 17.9 SEC (11.2-13.5)
== END 2025-04-24 06:04 | disposition home or self-care (01) ==
LOC: HO.LAB 06:03
PROVIDERS: PCP Internal Medicine; Visit Provider Internal Medicine Medical Oncology
DX: Z51.81 Encounter for therapeutic drug level monitoring (principal); Z79.01 Long term (current) use of anticoagulants
CPT/HCPCS: 36415; 85610

== ENCOUNTER 2025-04-26 06:12 | Outpatient (REF) | payer OTHER, SELFPAY ==
--- OUTSIDE RECORDS SUMMARY | 2024-09-10 07:21 | XMS_ITS ---
Author Organization Lennox Tsang MD Address [address] [place] [phone] Care Team Providers Care Personalization Specialist Name Role Phone Lennox Tsang Primary Care Provider REASON FOR VISIT New Refill Request Medications Medication SIG (Take, Route, Fr equency, Duration) Notes Start Date End Date Status metFORMIN HCl 500 MG 2tablet with a meal Orally twice for 90 days Active Encounters Encounter Location Date Provider Diagnosis Lennox Tsang MD [address] [place] [address] [address] [place] [phone] 09/10/2024 Lennox Tsang Plan Of Treatment Medication Medication Name Sig Start Date Stop Date Notes metFORMIN HCl 500 MG 2tablet with a meal Orally twice for 90 days Next Appt Details Provider Name:Lennox Reyes ier, 05/03/2025 02:30:00 PM, [address] [place] [address], [address], [phone], Progress Notes * Ian HANOB:1975 (49 yo M)Acc No.[id number]:09/10/2024 Patient: Rob CarrTashaMagene :1975 A ge:49 Y S ex:Male Address:[address] [place] [address], [address], [place] [address] * Refills Refill metFORMIN HCl Tablet, 500 MG, Orally, 180, 2tablet with a meal, twice, 90 days, Refills=3 * true * Date: Generated for Gabriela velazquez/Sarah/Nahid on: 06/27/2024 06:16 AM EST
--- OUTSIDE RECORDS SUMMARY | 2024-09-15 15:15 | XMS_ITS ---
Author Organization Lennox Tsang MD Address [address] [place] [phone] Care Team Providers Care Pressroom Worker Name Role Phone Lennox Tsang Primary Care Provider REASON FOR VISIT Metformin Refill Medications Medication SIG (Take, Route, Fr equency, Duration) Notes Start Date End Date Status metFORMIN HCl 500 MG 2tablet with a meal Orally twice a day for 90 days Active Encounters Encounter Location Date Provider Diagnosis Lennox Tsang MD [address] [place] [address] [address] [place] [phone] 09/15/2024 Lennox Tsang Plan Of Treatment Medication Medication Name Sig Start Date Stop Date Notes metFORMIN HCl 500 MG 2tablet with a meal Orally twice a day for 90 days Next Appt Details Provider Name:Lennox Reyes ier, 05/03/2025 02:30:00 PM, [address] [place] [address], [address], [phone], Progress Notes * Ian HANOB:1975 (49 yo M)Acc No.[id number]:09/15/2024 Patient: Rob Armen CURRIE :1975 A ge:49 Y S ex:Male Address:[address] [place] [address], [address], [place] [address] * Refills Refill metFORMIN HCl Tablet, 500 MG, Orally, 360 Tablet, 2tablet with a meal, twice a day, 90 days, Refills=3 * true * Date: Generated for Gabriela velazquez/Sarah/Nahid on: 06/27/2024 06:16 AM EST
--- OUTSIDE RECORDS SUMMARY | 2024-11-02 02:15 | XMS_ITS ---
Author Organization Lennox Tsang MD Address [address] [place], [place] [phone] Care Team Providers Care Lard Renderer Name Role Phone Lennox Tsang Primary Care Provider Results Component Value Reference Range Notes Liver Panel Reviewed date:11/02/2024 12:41:22 PM Interpretation: Performing Lab:[facility], [address] [place] [phone] Notes/Report: Bilirubin Total 0.6 0.0-1.0 mg/dL Bilirubin Direct 0.2 0.0-0.5 mg/dL Aspartate Amino Transferase 45 5-37 U/L Slight Hemolysis.Interpret result with caution. Alanine Aminotransferase 31 0-40 U/L Total Protein 8.1 6.5-8.0 g/dL Albumin Level 4.9 3.5-5.0 g/dL Alkaline Phosphatase 85 39-117 U/L Lipid Panel with Reflex Reviewed date:11/02/2024 12:41:04 PM Interpretation: Performing Lab:[facility], [address] [place] [phone] Notes/Report: Triglycerides 176 <150 mg/dL Desirable Triglyceride: [...] Date Provider Diagnosis Lennox Tsang MD [address] [facility] [address] [place] [phone] 11/02/2024 Lennox Tsang Hypercholesteremia E 78.00 Assessments Encounter Date Diagnosis (ICD Code) Assessment Notes Treatment Notes Treatment Clinical Notes Section Notes 11/02/2024 Hypercholesteremia (ICD-10 - E78.00) Plan Of Treatment Next Appt Details Provider Name:Lennox Reyes ier, 05/03/2025 02:30:00 PM, [address] [place] [address], Suite [facility], [place], [place], [phone], Progress Notes * EMELY IanOB:1975 (50 yo M)Acc No.[id number]:11/02/2024 Progress Note Patient: Armen HAWKINS Provider: Remy Tsang MD :1975 A ge:49 Y S ex:Male Date:11/02/2024 Address:[address] [place], [place] [phone] Subjective: * Chief Complaints: * 1 . [...] 0 11/02/2024 Generated for Gabriela velazquez/Sarah/Annabellaitting on: 06/27/2024 06:16 AM EST
--- OUTSIDE RECORDS SUMMARY | 2025-01-01 09:51 | XMS_ITS ---
Author Organization Lennox Tsang MD Address [address] [place] [phone] Care Team Providers Care Catcher Filter Tip Name Role Phone Lennox Tsang Primary Care Provider [phone] REASON FOR VISIT Appointments Encounters Encounter Location Date Provider Diagnosis Lennox Tsang MD [address] [place] [address] [address] [place] [phone] 01/01/2025 Lennox Tsang Plan Of Treatment Next Appt Details Provider Name:Lennox Reyes ier, 05/03/2025 02:30:00 PM, [address] [place] [address], Suite [facility], [place], [phone], Progress Notes * Ian HANOB:1975 (49 yo M)Acc No.[id number]:01/01/2025 Patient: Armen HAWKINS :1975 A ge:49 Y S ex:Male Address:[address] [place] [address], [address], [place] [address] * true * Date: Generated for Gabriela velazquez/Sarah/eTnatalyasmitting on: 06/27/2024 06:16 AM EST
--- OUTSIDE RECORDS SUMMARY | 2025-01-28 04:33 | XMS_ITS ---
Author Organization Lennox Tsang MD Address [address] [place] [phone] Care Team Providers Care Communications Project Lead Name Role Phone Lennox Tsang Primary Care [...] Date Provider Diagnosis Lennox Tsang MD [address] [place] [address] [phone] 01/28/2025 Lennox Tsang Hypercholesteremia E 78.00 Assessments [...] days Next Appt Details Provider Name:Lennox white, 05/03/2025 02:30:00 PM, [address], Suite [facility], [place], [place], [phone], Progress Notes * Ian HANOB:1975 (49 yo M)Acc No.[id number]:01/28/2025 Patient: R OY, Armen :1975 A ge:49 Y S ex:Male Address:[address] [place] [address] * Refills Refill Atorvastatin Calcium Tablet, 20 MG, Orally, 90 Tablet, 1 tablet, Once a day, 90 days, Refills=3 Refill Warfarin Sodium Tablet, 5 MG, Orally, 180 Tablet, 2 tabs, Once a day, 90 days, Refills=4 * true * Date: Generated for Gabriela velazquez/Sarah/Annabellaitting on: 06/27/2024 06:17 AM EST
--- OUTSIDE RECORDS SUMMARY | 2025-01-28 04:36 | XMS_ITS ---
Author Organization Lennox Tsang MD Address [address] [place] [address] [phone] Care Team Providers Care Engineering Professionals Name Role Phone Lennox Tsang Primary Care Provider REASON FOR VISIT Refill Request Encounters Encounter Location Date Provider Diagnosis Lennox Tsang MD [address] [place] [address] [place] [address] [phone] 01/28/2025 Lennox Tsang Plan Of Treatment Next Appt Details Provider Name:Lennox Reyes ier, 05/03/2025 02:30:00 PM, [address] [place] [address], Suite [facility], [place], [place], [phone], Progress Notes * Ian HANOB:1975 (49 yo M)Acc No.[id number]:01/28/2025 Patient: Armen HAWKINS :1975 A ge:49 Y S ex:Male Address:[address] [place] [address], [address], [place] [address] * true * Date: Generated for Gabriela velazquez/Sarah/eTransmitting on: 06/27/2024 06:16 AM EST
--- OUTSIDE RECORDS SUMMARY | 2025-02-06 23:45 | XMS_ITS ---
Author Organization Lennox Tsang MD Address [address] [place] [phone] Care Team Providers Care Security Guard Name Role Phone Lennox Tsang Primary Care Provider REASON FOR VISIT 6 MO F/U Encounters Encounter Location Date Provider Diagnosis Lennox Tsang MD [address] [place] [address] [place] [address] [phone] 02/07/2025 Lennox Tsang Plan Of Treatment Next Appt Details Provider Name:Lennox Reyes ier, 05/03/2025 02:30:00 PM, [address] [place] [address], Suite [facility], [place], [place], [phone], Progress Notes * Ian HANOB:1975 (50 yo M)Acc No.[id number]:02/07/2025 Progress Notes Patient: Armen HAWKINS Provider: Remy Tsang MD :1975 A ge:50 Y S ex:Male Date:02/07/2025 Address:[address] [place] [address], [address] Subjective: * Chief Complaints: * 1 . [...] MD Date: 0 02/07/2025 Generated for Gabriela velazquez/Sarah/Nahid on: 1 06/27/2024 06:17 AM EST
--- OUTSIDE RECORDS SUMMARY | 2025-03-22 02:48 | XMS_ITS ---
Author Organization Lennox Tsang MD Address [address] [place] [phone] Care Team Providers Care Industrial Hygiene Technician Name Role Phone Lennox Tsang Primary Care Provider REASON FOR VISIT Metformin Medications Medication SIG (Take, Route, Fr equency, Duration) Notes Start Date End Date Status metFORMIN HCl 500 MG 2tablet with a meal Orally twice a day for 90 days Active Encounters Encounter Location Date Provider Diagnosis Lennox Tsang MD [address] [place] [address] [place] [phone] 03/22/2025 Lennox Tsang Plan Of Treatment Medication Medication Name Sig Start Date Stop Date Notes metFORMIN HCl 500 MG 2tablet with a meal Orally twice a day for 90 days Next Appt Details Provider Name:Lennox Reyes ier, 05/03/2025 02:30:00 PM, [address] [place] [address], [address], [phone], Progress Notes * Ian HANOB:1975 (50 yo M)Acc No.[id number]:03/22/2025 Patient: Rob Armen CURRIE :1975 A ge:50 Y S ex:Male Address:[address] [place] [address], [address], [place] [address] * Refills Refill metFORMIN HCl Tablet, 500 MG, Orally, 360 Tablet, 2tablet with a meal, twice a day, 90 days, Refills=3 * true * Date: Generated for Gabriela velazquez/Sarah/Nahid on: 06/27/2024 06:17 AM EST
--- OUTSIDE RECORDS SUMMARY | 2025-04-24 09:00 | XMS_ITS ---
Author Organization Lennox Tsang MD Address [address] [place] [phone] Care Team Providers Care Marketing Systems Analyst Name Role Phone Lennox Tsang Primary Care Provider REASON FOR VISIT Lab Work Encounters Encounter Location Date Provider Diagnosis Lennox Tsang MD [address] [place] [address] [place] [phone] 04/24/2025 Lennox Tsang Plan Of Treatment Next Appt Details Provider Name:Lennox Reyes ier, 05/03/2025 02:30:00 PM, [address] [place] [address], Suite [facility], [place], [place], [phone], Progress Notes * Ian HANOB:1975 (50 yo M)Acc No.[id number]:04/24/2025 Patient: Armen HAWKINS :1975 A ge:50 Y S ex:Male Address:[address] [place] [address], [address], [place] [address] * true * Date: Generated for Gabriela velazquez/Sarah/eTransmitting on: 06/27/2024 06:17 AM EST
--- OUTSIDE RECORDS SUMMARY | 2025-04-26 02:00 | XMS_ITS ---
Author Organization Lennox Tsang MD Address [address] [place] [phone] Care Team Providers Care Sales Marketing Director Name Role Phone Lennox Tsang Primary Care Provider [phone] REASON FOR VISIT FASTING LABS Encounters Encounter Location Date Provider Diagnosis Lennox Tsang MD [address] [place] [phone] 04/26/2025 Lennox Tsang Blood tests for rout ine general physical examination Z00.00 ; Chronic systolic congestive heart failure I50.22 ; Hypercholesteremia E78.00 and Type 2 diabetes mellitus without complication, without long-term current use of insulin E11.9 Assessments Encounter Date Diagnosis (ICD Code) Assessment Notes Treatment Notes Treatment Clinical Notes Section Notes 04/26/2025 Blood tests for routine general physical examination (ICD-10 - Z00.00) 04/26/2025 Chronic systolic congestive heart failure (ICD-10 - I50.22) 04/26/2025 Hypercholesteremia (ICD-10 - E78.00) 04/26/2025 Type 2 diabetes mellitus without complication, without long-term current use of insulin (ICD-10 - E11.9) Plan Of Treatment Pending Test Test Name Order Date Complete Blood Count Auto Diff Comprehensive [place]. Panel Fast Lipid Panel 04/26/2025 PSA,Total (Free>4and<10) 04/26/2025 Microalbumin, Random 04/26/2025 Hemoglobin A1c 04/26/2025 UA ClnCatch+Micro w/rflx Cult 04/26/2025 Next Appt Details Provider Name:Lennox Reyes ier, 05/03/2025 02:30:00 PM, [address] [facility], [address], [place], [place], [phone], Progress Notes * Ian HANOB:1975 (50 yo M)Acc No.[id number]:04/26/2025 Progress Note Patient: Armen HAWKINS Provider: Remy Tsang MD :1975 A ge:50 Y S ex:Male Date:04/26/2025 Address:[address] [place], [place] [phone] Subjective: * Chief Complaints: * 1 . FASTING LABS. * Medical History: Objective: * Vitals: Assessment: * Assessment: 1. B lood tests for routine general physical examination - Z00.00 (Primary) 2 .?Chronic systolic congestive heart failure - I50.22 3 . H ypercholesteremia - E78.00 4 . T ype 2 diabetes mellitus without complication, without long-term current use of insulin - E11.9 Plan: * Treatment: 2. C hronic systolic congestive heart failure L AB: Complete Blood Count Auto Diff L AB: Comprehensive [place]. Panel Fast L AB: Lipid Panel L AB: PSA,Total (Free>4and<10) L AB: Microalbumin, Random L AB: Hemoglobin A1c L AB: UA ClnCatch+Micro w/rflx Cult 3. H ypercholesteremia L AB: Complete Blood Count Auto Diff L AB: Comprehensive [place]. Panel Fast L AB: Lipid Panel L AB: PSA,Total (Free>4and<10) L AB: Microalbumin, Random L AB: Hemoglobin A1c L AB: UA ClnCatch+Micro w/rflx Cult 4. T ype 2 diabetes mellitus without complication, without long-term current use of insulin L AB: Complete Blood Count Auto Diff L AB: Comprehensive [place]. Panel Fast L AB: Lipid Panel L AB: PSA,Total (Free>4and<10) L AB: Microalbumin, Random L AB: Hemoglobin A1c L AB: UA ClnCatch+Micro w/rflx Cult * * The named appointment provid er may or may not be the originator of this progress note, and it is not deemed complete until electronically signed by the appointment provider. Sign off status: Pending * Provider: Remy Tsang MD Date: 06/27/2024 Generated for Gabriela velazquez/Sarah/Nahid on: 06/27/2024 06:17 AM EST
--- OUTSIDE RECORDS SUMMARY | 2025-04-26 06:16 | XMS_ITS | Encounter Summary ---
Author Organization [facility] Address [address] [place] [address] Phone Care Team Providers Care Garment Form Assembler Name Role Phone Lennox Tsang MD Primary Care Provider [phone]- [phone] Encounter Details Date Type Department Care Team (Late st Contact Info) Description 09/21/2023 Documentation Only [facility] [address] [place] [address] Preet Valenzuela DO [address] [place] [address] Social History Tobacco Use Types [...] Visit [facility] [address] [place] [address] Preet Valenzuela DO [address] [place] [address] documented as of this encounter Visit Diagnoses Not on filedocumented in this encounter Care Teams Garment Form Assembler Relationship Specialty Start Date End Date Lennox Tsang MD [address] [place], [place] PCP - General Internal Medicine 08/09/22 documented as of this encounter
--- OUTSIDE RECORDS SUMMARY | 2025-04-26 06:16 | XMS_ITS | Encounter Summary ---
Author Organization [facility], Address [address] [place] [address] Phone Care Team Providers Care Joint Terminal Attack Controller Name Role Phone Lennox Tsang MD Primary Care Provider Encounter Details Date Type Department Care Team (Late st Contact Info) Description 08/09/2022 Documentation Only [facility] [address] [place] [address] Lennox Tsang MD [address] [place] [address] [address] [place] [address] Social History Tobacco Use Types Packs/Day Years [...] [facility] [address] [place] [address] Preet Valenzuela DO [address] [facility] [place] [address] documented as of this encounter Visit Diagnoses Not on filedocumented in this encounter Care Teams Joint Terminal Attack Controller Relationship Specialty Start Date End Date Lennox Tsang MD [address] [place] [address] [address] [place] [address] PCP - General Internal Medicine 08/09/22 documented as of this encounter
--- OUTSIDE RECORDS SUMMARY | 2025-04-26 06:16 | XMS_ITS | Encounter Summary ---
Author Organization [facility] Address [address] [place] [address] Phone Care Team Providers Care Poiser Name Role Phone Lennox Tsang MD Primary Care Provider Encounter Details Date Type Department Care Team (Late st Contact Info) Description 01/27/2024 Orders Only [facility] [address] [place] [address] Preet Valenzuela DO [address] [facility] [place] [address] Hypokalemia; Heart failure with normal [...] [facility] [address] [place] [address] Preet Valenzuela DO [address] [facility] [place] [address] documented as of this encounter [...] Magnesium 1.6 1.6 - 2.3 mg/dL [facility] Blood specimen (specimen) Venous blood / Unknown 03/21/2024 9:00 AM EDT 03/21/2024 us Preet Valenzuela DO LAB BLOOD ORDERABLES Final Resu lt [facility] [address] [place] [address] * (ABNORMAL) Renal Function Panel (03/21/2024 9:00 AM EDT) Glucose 112(H) 70 - 99 mg/dL [facility] BUN 23 6 - 24 mg/dL [facility] Creatinine 1.23 0.76 - 1.27 mg/dL [facility] eGFR CKD-EPI CR 2020 72 >59 mL/min/1.7 3 [facility] BUN/Creatinine Ratio 19 9 - 20 [facility] Sodium 136 134 - 144 mmol/L [facility] Potassium 5.1 3.5 - 5.2 mmol/L [facility] Chloride 95(L) 96 - 106 mmol/L [facility] Bicarbonate (CO2) 21 20 - 29 mmol/L [facility] Calcium 9.7 8.7 - 10.2 mg/dL [facility] Phosphorus 2.3(L) 2.8 - 4.1 mg/dL [facility] Albumin 4.5 4.1 - 5.1 g/dL [facility] Blood specimen (specimen) Venous blood / Unknown 03/21/2024 9:00 AM EDT 03/21/2024 us Preet Valenzuela DO LAB BLOOD ORDERABLES Final Resu lt [facility] [address] [place] [phone] documented in this encounter Visit Diagnoses Diagnosis Hypokalemia Heart failure with normal ejection fraction (HCC) Hypercalcemia documented in this encounter Care Teams Poiser Relationship Specialty Start Date End Date Lennox Tsang MD [address] [place] [address] [address] [place], [place] PCP - General Internal Medicine 08/09/22 documented as of this encounter
--- OUTSIDE RECORDS SUMMARY | 2025-04-26 06:16 | XMS_ITS | Clinical Summary ---
Author Organization [facility] Address [address] [place] [address] Care Team Providers Care Lockstitcher Name Role Phone Lennox Tsang MD Primary Care Provider +1- [phone] Allergies No known active allergies Medications spironolactone [...] M, W, Th, Sat, Sun. Coumadin clinic [facility] managing INR Active atorvastatin (LIPITOR) 20 [...] failure with p reserved ejection fraction (HFpEF) (CMS/[facility] V24, CMS/HCC V28) 05/17/2023 Assessment [...] Patient has upcoming echocardiogram scheduled. CHF exacerbation (CMS/[facility] V24, CMS/[facility] V28) 05/25 Assessment & Plan [...] Transfer text Palpitations 06/22/2022 Diastolic heart failure (CMS/[facility] V24, CMS/[facility] V2 8) 01/02/2021 Assessment & [...] Encounters Date Type Department Care Team Description 04/24/[address] [facility] [address] [place] [phone] Rupesh [place] 04/02/2025 Telephone [facility] [address] [place] [phone] Zac Lal MD 04/01/[address] [facility] [address] [facility] [address] [place] [address] Provider, Not In System 03/26/[address] [facility] [address] [facility] [address] [place] [phone] Zac Lal MD 03/22/2025 3:00 PM EDT Office Visit [facility] [address] [facility] [address] [place] [address] Zac Lal MD Chronic diastolic heart failure (CMS/HCC [...] 06/21/2023 Depression Screening 05/23/2024 COVID-19 Vaccine ( - season) 2025 03/14/2024, 03/19/2021, 06/21/2020, Additional history [...] GEMUSE QTc 505 ms GEMUSE P Wave [place] 25 degrees GEMUSE R [place] 43 degrees GEMUSE T Redmond -146 degrees GEMUSE ECG Interpretation Normal sinus rhythm Possible Left atrial enlargement Left bundle branch block Abnormal ECG When compared with ECG of 01-JUN-2024 08:17, No significant change was found Confirmed by Beba LAL JAMES ([id number]) on 03/22/2025 5:18:37 PM GEMUSE 03/22/2025 3:26 PM EDT 03/22/2025 5:18 PM EDT us Zac Lal MD ECG ORDERABLES Final Result GEMUSE from Last 3 Months Insurance [facility] Care Teams Lockstitcher Relationship Specialty Start Date End Date Lennox Tsang MD [address] [place] [address] Drive [address] [place], [place] [phone] PCP - General Internal Medicine 03/22/25
--- OUTSIDE RECORDS SUMMARY | 2025-04-26 06:16 | XMS_ITS | Encounter Summary ---
Author Organization [facility] Address [address] [place] [address] Phone Care Team Providers Care B2B Account Executive Name Role Phone Lennox Tsang MD Primary Care Provider Encounter Details Date Type Department Care Team (Late st Contact Info) Description 04/20/2024 Orders Only [facility] [address] [place] [address] Preet Valenzuela DO [address] [place] [address] Hypokalemia; Heart failure with normal [...] Visit [facility] [address] [place] [address] Preet Valenzuela DO [address] [place] [address] documented as of this encounter Visit Diagnoses Diagnosis Hypokalemia Heart failure with normal ejection fraction (HCC) Hypercalcemia documented in this encounter Care Teams B2B Account Executive Relationship Specialty Start Date End Date Lennox Tsang MD [address] [place] [address] [address] [place] PCP - General Internal Medicine 08/09/22 documented as of this encounter
--- OUTSIDE RECORDS SUMMARY | 2025-04-26 06:16 | XMS_ITS | Encounter Summary ---
Author Organization [facility] Address [address] [place] [address] Phone Care Team Providers Care Summer Clerk Name Role Phone Lennox Tsang MD Primary Care Provider +1- [phone] Encounter Details Date Type Department Care Team (Late st Contact Info) Description 08/09/2024 Documentation Only [facility] [address] [place] [address] Preet Valenzuela DO [address] [place] [address] Social History Tobacco Use Types [...] [facility] [address] [place] [address] Preet Valenzuela DO [address] [place] [address] documented as of this encounter Visit Diagnoses Not on filedocumented in this encounter Care Teams Summer Clerk Relationship Specialty Start Date End Date Lennox Tsang MD [address] [place], [place] PCP - General Internal Medicine 08/09/22 documented as of this encounter
--- OUTSIDE RECORDS SUMMARY | 2025-04-26 06:17 | XMS_ITS | Patient Health Record ---
Author Organization Lennox Tsang MD Address [address] [place], [place] [address] Care Team Providers Care Small Order Cutter Name Role Phone Lennox Tsang Primary Care Provider Allergies Allergen (clinical drug ingredient) Drug/Non Drug Allergy documented on EMR Reaction Allergy Type Onset Date Status ibuprofen Ibuprofen bleeding Drug Allergy Active Results Component Value Reference Range Notes Liver Panel Reviewed date:07/30/2024 06:02:36 PM Interpretation: Performing Lab:[facility], [address] [place] [phone] Notes/Report: Bilirubin Total 0.7 0.0-1.0 mg/dL Bilirubin Direct 0.2 0.0-0.5 mg/dL Aspartate Amino Transferase 29 5-37 U/L Alanine Aminotransferase 32 0-40 U/L Total Protein 7.8 6.5-8.0 g/dL Albumin Level 4.2 3.5-5.0 g/dL Alkaline Phosphatase 91 39-117 U/L Blood Urea Nitrogen Reviewed date:07/30/2024 06:02:51 PM Interpretation: Performing Lab:[facility], [address] [place] [phone] Notes/Report: Blood Urea Nitrogen 27 9-16 mg/dL Creatinine Reviewed date:07/30/2024 06:02:43 PM Interpretation: Performing Lab:[facility], [address] [place] [phone] Notes/Report: Creatinine 1.25 0.5-1.4 mg/dL Estimated Glomerular Filt Rate > 60 Chronic Kidney Disease: Estimated GFR < 60 mL/min/1.73m2 Severe Kidney Disease: Estimated GFR < 15 mL/min/1.73m2 Lipid Panel Reviewed date:07/30/2024 06:02:22 PM Interpretation: Performing Lab:[facility], [address] [place] [phone] Notes/Report: Triglycerides 217 <150 mg/dL Desirable Triglyceride: [...] Panel Reviewed date:11/02/2024 12:41:22 PM Interpretation: Performing Lab:[facility], [address] [place] [phone] Notes/Report: Bilirubin Total 0.6 0.0-1.0 mg/dL Bilirubin Direct 0.2 0.0-0.5 mg/dL Aspartate Amino Transferase 45 5-37 U/L Slight Hemolysis.Interpret result with caution. Alanine Aminotransferase 31 0-40 U/L Total Protein 8.1 6.5-8.0 g/dL Albumin Level 4.9 3.5-5.0 g/dL Alkaline Phosphatase 85 39-117 U/L Lipid Panel with Reflex Reviewed date:11/02/2024 12:41:04 PM Interpretation: Performing Lab:[facility], [address] [place] [phone] Notes/Report: Triglycerides 176 <150 mg/dL Desirable Triglyceride: [...] PM Interpretation:see back 05-31-2024 Performing Lab: Notes/Report: [address] [address] XRay Report Signed Patient: Armen Olson MR#: [id number] : 1975 Acct:[id number] Age/Sex: 49 / M ADM Date: 05/30/24 Loc: HO.LAB Attending Dr: Lennox Tsang MD Ordering Physician: Lennox Tsang MD Date of Service: 05/30/24 Procedure(s): XR ribs LT min 3V w CXR1V Accession Number(s): [id number] cc: Lennox Tsang MD CLINICAL HISTORY: FELL [...] in OV> 05/30/24704 DD/ 2 TD/TT: 05/30/24702 Crimper Operator: [address] [place] [address] XRay Report Signed Patient: Armen Olson MR #: [id number] : 1975 Acct:[id number] Age/Sex: 49 / M ADM Date: 05/30/24 Loc: HO.LAB Attending Dr: Lennox Tsang MD Ordering Physician: Lennox Tsang MD Date of Service: 05/30/24 Procedure(s): XR rib s LT min 3V w CXR1V Accession Number(s): [id number] cc: Lennox Tsang MD CLINICAL HISTORY: FE [...] OV> 05/30/24704 DD/ 2 TD/TT: 05/30/24 07 Crimper Operator: Raudel Costa Reviewed date:07/30/2024 12:44:46 PM Interpretation: Performing Lab:[facility], [address] [place] [phone] Notes/Report: Raudel Costa See Note Specimen held untested for 24 hours; Call to request Chemistry testing. INR WHOLE BLOOD POC Reviewed date:08/16/2024 10:45:38 AM Interpretation: Performing Lab:[facility], [address] [place] [phone] Notes/Report: PT, INR - [facility] 4.0 0.9-1.1 METER #: [id number] INTERNATIONAL NORMALIZED RATIO (INR) REFERENCE RANGES Reference [...] OC Reviewed date:08/16/2024 10:45:10 AM Interpretation: Performing Lab:[facility], [address] [place] [phone] Notes/Report: Prothrombin Time Whole Bld POC 48.1 11.1-13.5 sec INR WHOLE BLOOD POC Reviewed date:10/12/2024 12:18:05 PM Interpretation: Performing Lab:[facility], [address] [place] [phone] Notes/Report: PT, INR - [facility] 3.8 0.9-1.1 METER #: [id number] INTERNATIONAL NORMALIZED RATIO (INR) REFERENCE RANGES Reference [...] OC Reviewed date:10/12/2024 12:17:08 PM Interpretation: Performing Lab:[facility], [address] [place] [phone] Notes/Report: Prothrombin Time Whole Bld POC 45.0 11.1-13.5 sec INR WHOLE BLOOD POC Reviewed date:10/25/2024 12:36:37 PM Interpretation: Performing Lab:[facility], [address] [place] [phone] Notes/Report: PT, INR - [facility] 3.8 0.9-1.1 METER #: [id number] INTERNATIONAL NORMALIZED RATIO (INR) REFERENCE RANGES Reference [...] OC Reviewed date:10/25/2024 12:38:11 PM Interpretation: Performing Lab:[facility], [address] [place] [phone] Notes/Report: Prothrombin Time Whole Bld POC 45.1 11.1-13.5 sec Hold Gold Reviewed date:11/02/2024 12:40:55 PM Interpretation: Performing Lab:[facility], [address] [place] [phone] Notes/Report: Hold Gold See Note Specimen held untested for 24 hours; Call to request Chemistry testing. INR WHOLE BLOOD POC Reviewed date:11/09/2024 12:09:03 PM Interpretation: Performing Lab:[facility], [address] [place] [phone] Notes/Report: PT, INR - [facility] 2.5 0.9-1.1 METER #: [id number] INTERNATIONAL NORMALIZED RATIO (INR) REFERENCE RANGES Reference [...] OC Reviewed date:11/09/2024 04:30:54 PM Interpretation: Performing Lab:[facility], [address] [place] [phone] Notes/Report: Prothrombin Time Whole Bld POC 29.5 11.1-13.5 sec INR WHOLE BLOOD POC Reviewed date:11/20/2024 10:24:22 AM Interpretation: Performing Lab:[facility], [address] [place] [phone] Notes/Report: PT, INR - [facility] 4.1 0.9-1.1 METER #: [id number] INTERNATIONAL NORMALIZED RATIO (INR) REFERENCE RANGES Reference [...] OC Reviewed date:11/20/2024 10:24:14 AM Interpretation: Performing Lab:[facility], [address] [place] [phone] Notes/Report: Prothrombin Time Whole Bld POC 49.3 11.1-13.5 sec INR WHOLE BLOOD POC Reviewed date:12/04/2024 12:19:35 PM Interpretation: Performing Lab:[facility], [address] [place] [phone] Notes/Report: PT, INR - [facility] 4.9 0.9-1.1 METER #: [id number] INTERNATIONAL NORMALIZED RATIO (INR) REFERENCE RANGES Reference [...] OC Reviewed date:12/04/2024 12:19:18 PM Interpretation: Performing Lab:[facility], [address] [place] [phone] Notes/Report: Prothrombin Time Whole Bld POC 58.7 11.1-13.5 sec INR WHOLE BLOOD POC Reviewed date:12/18/2024 12:43:44 PM Interpretation: Performing Lab:[facility], [address] [place] [phone] Notes/Report: PT, INR - [facility] 3.9 0.9-1.1 METER #: [id number] INTERNATIONAL NORMALIZED RATIO (INR) REFERENCE RANGES Reference [...] OC Reviewed date:12/18/2024 12:43:52 PM Interpretation: Performing Lab:[facility], [address] [place] [phone] Notes/Report: Prothrombin Time Whole Bld POC 47.0 11.1-13.5 sec INR WHOLE BLOOD POC Reviewed date:12/24/2024 04:37:33 PM Interpretation: Performing Lab:[facility], [address] [place] [phone] Notes/Report: PT, INR - [facility] 2.0 0.9-1.1 METER #: [id number] INTERNATIONAL NORMALIZED RATIO (INR) REFERENCE RANGES Reference [...] OC Reviewed date:12/24/2024 04:37:23 PM Interpretation: Performing Lab:[facility], [address] [place] [phone] Notes/Report: Prothrombin Time Whole Bld POC 24.3 11.1-13.5 sec INR WHOLE BLOOD POC Reviewed date:12/31/2024 05:48:15 PM Interpretation: Performing Lab:[address] [phone] Notes/Report: PT, INR - [facility] 2.6 0.9-1.1 METER #: [id number] INTERNATIONAL NORMALIZED RATIO (INR) REFERENCE RANGES Reference [...] OC Reviewed date:12/31/2024 05:45:34 PM Interpretation: Performing Lab:[facility], [address] [place] [phone] Notes/Report: Prothrombin Time Whole Bld POC 30.8 11.1-13.5 sec INR WHOLE BLOOD POC Reviewed date:01/15/2025 02:51:48 PM Interpretation: Performing Lab:[facility], [address] [place] [phone] Notes/Report: PT, INR - [facility] 3.4 0.9-1.1 METER #: [id number] INTERNATIONAL NORMALIZED RATIO (INR) REFERENCE RANGES Reference [...] OC Reviewed date:01/15/2025 04:43:48 PM Interpretation: Performing Lab:[facility], [address] [place] [phone] Notes/Report: Prothrombin Time Whole Bld POC 41.4 11.1-13.5 sec INR WHOLE BLOOD POC Reviewed date:02/04/2025 04:43:47 PM Interpretation: Performing Lab:[facility], [address] [place] [phone] Notes/Report: PT, INR - [facility] 3.3 0.9-1.1 METER #: [id number] INTERNATIONAL NORMALIZED RATIO (INR) REFERENCE RANGES Reference [...] OC Reviewed date:02/04/2025 04:43:55 PM Interpretation: Performing Lab:[facility], [address] [place] [phone] Notes/Report: Prothrombin Time Whole Bld POC 39.4 11.1-13.5 sec INR WHOLE BLOOD POC Reviewed date:02/27/2025 08:08:45 AM Interpretation: Performing Lab:[facility], [address] [place] [phone] Notes/Report: PT, INR - [facility] 2.6 0.9-1.1 METER #: [id number] INTERNATIONAL NORMALIZED RATIO (INR) REFERENCE RANGES Reference [...] OC Reviewed date:02/27/2025 08:08:37 AM Interpretation: Performing Lab:[facility], [address] [place] [phone] Notes/Report: Prothrombin Time Whole Bld POC 31.4 11.1-13.5 sec INR WHOLE BLOOD POC Reviewed date:03/19/2025 12:41:47 PM Interpretation: Performing Lab:[facility], [address] [place] [phone] Notes/Report: PT, INR - [facility] 2.9 0.9-1.1 METER #: [id number] INTERNATIONAL NORMALIZED RATIO (INR) REFERENCE RANGES Reference [...] OC Reviewed date:03/19/2025 12:41:38 PM Interpretation: Performing Lab:[facility], [address] [place] [phone] Notes/Report: Prothrombin Time Whole Bld POC 35.0 11.1-13.5 sec INR WHOLE BLOOD POC Reviewed date:04/11/2025 12:47:05 PM Interpretation: Performing Lab:[facility], [address] [place] [phone] Notes/Report: PT, INR - [facility] 3.8 0.9-1.1 METER #: [id number] INTERNATIONAL NORMALIZED RATIO (INR) REFERENCE RANGES Reference [...] OC Reviewed date:04/11/2025 12:46:47 PM Interpretation: Performing Lab:[facility], [address] [place] [phone] Notes/Report: Prothrombin Time Whole Bld POC 45.7 11.1-13.5 sec Prothrombin Time INR Reviewed date:04/20/2025 03:44:30 PM Interpretation: Performing Lab:[facility], [address] [place] [phone] Notes/Report: Prothrombin Time 15.8 11.2-13.5 SEC INTERNATIONAL NORM RATIO 1.3 0.9-1.1 INTERNATIONAL NORMALIZED RATIO (INR) REFERENCE RANGES Results of INR called to DANNIE on 04/19/25 at 0917 by ARABELLA. Reference Range INTERNATIONAL NORMALIZED RATIO (INR) REFERENCE RANGES For patients not on anticoagulant therapy: 0.9 - 1.1 Reference Range INR ranges for oral anticoagulant For patients not on anticoagulant therapy: therapy: 0.9 - 1.1 For prevention and treatment of venous INR ranges for oral anticoagulant thrombosis and pulmonary embolism: 2.0 - 3.0 therapy: For acute myocardial infarction with For prevention and treatment of venous aspirin therapy: 2.0 - 3.0 thrombosis and pulmonary embolism: 2.0 - 3.0 For acute myocardial infarction without For acute myocardial infarction with aspirin therapy: 3.0 - 4.0 aspirin therapy: 2.0 - 3.0 For patients with mechanical prosthetic For acute myocardial infarction without heart valves: 2.5 - 3.5 aspirin therapy: 3.0 - 4.0 For patients with mechanical prosthetic heart valves: 2.5 - 3.5 Prothrombin Time 15.8 11.2-13.5 SEC INTERNATIONAL NORM RATIO 1.3 0.9-1.1 INTERNATIONAL NORMALIZED RATIO (INR) REFERENCE RANGES Results of INR called to DANNIE on 04/19/25 at 0917 by ARABELLA. Reference Range INTERNATIONAL NORMALIZED RATIO (INR) REFERENCE RANGES For patients not on anticoagulant therapy: 0.9 - 1.1 Reference Range INR ranges for oral anticoagulant For patients not on anticoagulant therapy: therapy: 0.9 - 1.1 For prevention and treatment of venous INR ranges for oral anticoagulant thrombosis and pulmonary embolism: 2.0 - 3.0 therapy: For acute myocardial infarction with For prevention and treatment of venous aspirin therapy: 2.0 - 3.0 thrombosis and pulmonary embolism: 2.0 - 3.0 For acute myocardial infarction without For acute myocardial infarction with aspirin therapy: 3.0 - 4.0 aspirin therapy: 2.0 - 3.0 For patients with mechanical prosthetic For acute myocardial infarction without heart valves: 2.5 - 3.5 aspirin therapy: 3.0 - 4.0 For patients with mechanical prosthetic heart valves: 2.5 - 3.5 C ORRECTED REPORT Prothrombin Time INR Reviewed date:04/24/2025 01:35:29 PM Interpretation: Performing Lab:[facility], [address] [place] [phone] Notes/Report: Prothrombin Time 17.9 11.2-13.5 SEC INTERNATIONAL NORM RATIO 1.5 0.9-1.1 INTERNATIONAL NORMALIZED RATIO (INR) REFERENCE RANGES Reference [...] mechanical prosthetic heart valves: 2.5 - 3.5 Reason For Referral Reason HYPERPARATHYROIDISM TYPE 2 [...] Problem Status W/U Status Risk Notes Problem 71717530 Rectal bleeding (K62.5) Active confirmed Problem Gout (21105591) Gout (M10.9) Active confirmed Problem Hypomagnesemia (980143273) Hypomagnesemia (E83.42) Active confirmed Problem Hypercalcemia (89617681) Hypercalcemia (E83.52) Active confirmed Problem 961139864 Other ascites (R18.8) Active confirme d Problem 6754727116999 Aortic valve prosthesis present (Z95.2) Active confirmed Problem 270231832 Chronic systolic congestive heart failure (I50.22) Active confirmed Problem 87957153 Obstructive slee p apnea syndrome (G47.33) Active confirmed Problem 16350901 Hyperparathyroid ism (E21.3) Active confirmed Problem 35795737 Intrinsic eczema (L20.84) Active confirmed Problem 586412820 Leukocytosis, unspecified type (D72.829) Active confirmed Problem 67166288 Arthralgia, unspecified joint (M25.50) Active confirmed Problem 39482699 Cardiac asthma (I50.1) Active confirmed Problem 210917990 Fatty liver (K76.0) Active confirmed Problem Chronic systolic heart failure (252475465) Chronic systolic CHF (congestive heart failure) (I50.22) Active confirmed Problem 24350460 Hypercholesterem ia (E78.00) Active confirmed Problem 128283104 Type 2 diabetes mellitus without complication, without long-term current use of insulin (E11.9) Active confirmed Problem 655034242 Mild intermitten t asthmatic bronchitis with acute exacerbation (J45.21) Active confirmed Problem 655768949570136 Acute drug-induc ed gout of foot, unspecified laterality (M10.279) Active confirmed Problem 580143616 Obesity (BMI 35.0-39.9 without comorbidity) (E66.9) Active [...] Diagnosis Lennox Tsang MD [address] [place] [id number] 07/30/2024 Lennox Nairardier Hyperparathyroidism E21.3 Lennox Tsang MD [address] [place] [address] [id number] 11/02/2024 Lennox Tsang Hypercholesteremia E 78.00 Lennox Tsang MD [address] [place] [address] [id number] 04/30/2024 Lennox Nairardier Hyperparathyroidism E21.3 ; Encounter for general adult medical examination without abnormal findings Z00.00 ; Hypercholesteremia E78.00 and Chronic systolic congestive heart failure I50.22 Lennox Tsang MD [address] [place] [address] [id number] 05/29/2024 Lennox Tsang Fall on stairs, init ial encounter W10.9XXA and Closed fracture of one rib of left side, initial encounter S22.32XA Lennox Tsang MD [address] [place] [address] [id number] 05/31/2024 Lennox Tsang Chronic systolic congestive heart failure I50.22 Lennox Tsang MD [address] [place] [address] [id number] 08/06/2024 Lennox Tsang Chronic systolic congestive heart failure I50.22 ; Obstructive sleep apnea syndrome G47.33 ; Aortic valve prosthesis present Z95.2 and Hypercholesteremia E78.00 Lennox Tsang MD [address] [place] [address] [id number] 08/03/2024 Lennox Tsang MD [address] [place] [address] [id number] 08/06/2024 Lennox Tsang MD [address] [place] [address] [id number] 05/28/2024 Lennox Tasng MD [address] [place] [address] [id number] 05/30/2024 Lennox Tsang MD [address] [place] [address] [id number] 07/18/2024 Lennox Tsang MD [address] [place] [address] [id number] 07/20/2024 Lennox Tsang COVID-19 U07.1 Lennox Tsang MD [address] [place] [address] [id number] 07/23/2024 Lennox Tsang MD [address] [place] [address] [id number] 07/23/2024 Lennox Tsang MD [address] [place] [address] [id number] 09/10/2024 Lennox Tsang MD [address] [place] [address] [id number] 09/15/2024 Lennoxenrique Tsang MD [address] [place] [address] [id number] 01/01/2025 Lennox Tsang MD [address] [place] [address] [id number] 01/28/2025 Lennox Tsang Hypercholesteremia E 78.00 Lennox Tsang MD [address] [place] [address] [id number] 01/28/2025 Lennox Tsang MD [address] [place] [address] [id number] 03/22/2025 Lennox Tsang MD [address] [place] [address] [id number] 04/24/2025 Lennox Tsang Assessments Encounter Date Diagnosis (ICD Code) Assessment Notes Treatment Notes Treatment Clinical Notes Section Notes 07/30/2024 Hyperparathyroidism (ICD-10 - E21.3) 11/02/2024 Hypercholesteremia (ICD-10 - E78.00) 04/30/2024 Hyperparathyroidism (ICD-10 - E21.3) referral to [facility] endocrine/ REFERRAL MADE TO ENDOCRINE , WILL FAX AFTER CASE LOCKED 04/30/2024 Encounter for genera l adult medical examination without abnormal findings (ICD-10 - Z00.00) Labs reviewed and discussed with patient 05/29/2024 Fall on stairs, init ial encounter (ICD-10 - W10.9XXA) pending diagnostic testing, order faxed to [facility] [facility] Patient Reg 05/29/2024 Closed [...] Name:Lennox Reyes ier, 05/03/2025 02:30:00 PM, [address] [facility], [address], [place], [place], [id number], Insurance Providers Payer Name Payer Address Payer Phone Subscriber Number Group Number Insured Name Patient Relationship to Insured Coverage Start Date Coverage End Date [address] [place] [phone] [id number] ; [id number] Armen Olson Self - patient is the insured Medical (General) History Medical History History ICD Code Hx of Umbilical Hernia discussed colonoscopy and he wants to wait: 11/24/22 colonoscopy tubular adenoma. repeat in 5 years Prediabetes R73.09 Surgical History Surgery Date(Month/Year) aortic valve replacement 2001 cervical spine fusion
--- OUTSIDE RECORDS SUMMARY | 2025-04-26 06:17 | XMS_ITS | Encounter Summary ---
Author Organization [facility] Address [address] [place] [address] Care Team Providers Care Band Tier Name Role Phone Lennox Tsang MD Primary Care Provider [phone] Reason for Visit * Reason Onset Date Comments Medical Records 04/01/2025 Encounter Details Date Type Department Care Team (Late st Contact Info) Description 04/01/2025 Telephone [facility] Cardiology [facility] [address] [place] [address] Provider, Not In System Social History Tobacco Use Types Packs/Day Years [...] as of this encounter Progress Notes * Zina Hagen - 04/25/2025 4:12 PM EST Faxed 03/22/2025 Office Note and EKG to [facility] Preop Dept. Att:Penny at [phone] on 04/01/2025 documented in this encounter Plan of Treatment Not on file documented as of this encounter Visit Diagnoses Not on filedocumented in this encounter Care Teams Band Tier Relationship Specialty Start Date End Date Lennox Tsang MD [address] [facility] [address] [place] [address] PCP - General Internal Medicine 03/22/25 documented as of this encounter
--- OUTSIDE RECORDS SUMMARY | 2025-04-26 06:17 | XMS_ITS | Data Portability ---
Author Organization [place] - [facility], Allergy Address [address] [facility] 100 [place] [address] Care Team Providers Care Roustabout Pusher Name Role Phone KHADIJAH GODWIN Primary Care Provider [phone] Assessment Encounter Date Assessment Date Assessment LastModified [...] pursing due to limited finances. F/U PRN. [email or web address] Not available 11/15/2024 13:19:16 02/11/2025 02/11/2025 49-year-old [...] contr ast No observ ation record ed. [email or web address] Not Available 01/22 10:28:57 Result Notes None recorded. Problems Name Problem SNOMED Code Status Onset Date Resolution Date Notes Provider Name and Address Organization Details Recorded Time Impacted cerumen of bilateral ears 7744789128382 108 Active 2024 WENDY PATEL PA-C [address] [facility],[address] [facility], [place], [address], [place] - [facility] [place] 5 12:06:34 Sensorineur al hearing loss of bilateral ears 011922851 Active 2024 JOHNATHON POZO, AUD [address] [facility], [place], [address], [place] - [facility] [place] 13:25:21 Impacted cerumen in left ear 0657497140673 101 Active 2024 WENDY PATEL PA-C [address] [facility],[address] [facility], [place], [address], [place] - [facility] [place] 15:20:29 Mass of tongue 039130886 Active 2024 Preet Gil, DO [address] [facility], [address] [facility], [place], [address], [place] - [facility] [place] 5 08:52:45 Problem Notes None recorded. Procedures Surgical History Date Name Laterality Status Provider Name and Address Organization Details Recorded Time 5 FOL_normal_DHL completed Preet Gil DO 100 [facility],[address], [address], [place] - [facility] [place] 02/11/2025 10:15:38 5 Comp Audio with Tymps - 86404 & 31794 completed JOHNATHON POZO, AUD [address] [facility],[address], [address], [place] - [facility] [place] 10/23/2024 13:25:16 5 Cerumen removal without microscope left completed WENDY PATEL PA-C [address] [facility],[address], [address], [place] - [facility] [place] 10/23/2024 15:21:03 5 Cerumen removal with microscope bilateral completed WENDY PATEL PA-C [address] [address], [place], [address], [facility] - [facility] 10/08/2024 10:40:11 Imaging Results None recorded. Procedure Notes None recorded. Medical Equipment None Reported. Allergies Allergen ID Allergen Name Allergen Category Reaction Reaction Severity Criticality Documentation Date Start Date Code Code System Note Provider Name and Address Organization Details Recorded Time 722963 ibuprofen medicatio n Not available Not available Not available 04/26/2025 5640 RxNorm Not Available [email or web address] - External Data Service - prod 03:18:39 Medications Name Sig Start Date Stop Date [...] Address Organization Details Last Updated DateTime 10/08/2024 92198.77 g 36.7 kg/m2 162.56 cm Kim Galo [place] - [facility] 10/08/2024 10:13:37 Date Recorded Body height Body mass index (BMI) Body weight Provider Name and Address Organization Details Last Updated DateTime 10/23/2024 162.56 cm 36.9 kg/m2 94751.36 g Agustina Reyes [place] - [facility] 10/23/2024 13:45:09 Date Recorded Body height Body mass index (BMI) Body weight Provider Name and Address Organization Details Last Updated DateTime 02/11/2025 162.56 cm 36.9 kg/m2 73593.36 g Jose Garcia [place] - [facility] 02/11/2025 09:31:06 Social History Question Answer Notes LastModified by Organizat ion Details LastModified Time Tobacco Smoking Status Never Smoker Kim boyle [place] - [facility] 10/08/2024 10:14:11 What Type Of Data Control Clerk Do You Use? None [email or web address] Information not available 10/08/2024 Do You Have Any Pets? No Information not available 10/08/2024 Are You Passively Exposed To Smoke? No [email or web address] Information not available 10/08/2024 Are There Any Smokers In Your House? No [email or web address] Information not available 10/08/2024 Sex: Unknown Functional Status Question Answer Note LastModified by Organization Details LastModified Time Do you use any illicit or recreational drugs? No [email or web address] Information not available 10/08/2024 Do you or have you ever used any other forms of tobacco or nicotine? No [email or web address] Information not available 10/08/2024 What is your level of alcohol consumption? 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 noExposureToExcessiveNoise Infor mation not available 10/08/2024 Mental Status None recorded. Family History Nothing Reported. Medical History Condition Response Allergies/Hayfever N Heart Problems Y Anxiety N Tonsil Infections N Emphysema N Migraines N Thyroid Problems Y COPD N Depression N Developmental Delay N Glaucoma N Nasal or Sinus Problems N Anemia N Immune System Disorder N Anesthesia Complications N Heart Attack ([place]) N Other Skin Condition N Diabetes Y [...] ICD10 Code Diagnosis IMO Codes Diagnosis Note [id number] WENDY PATEL PA-C [facility] [address] [address] 10/08/2024 09:55:54 10/08/2024 10:46:57 Impacted cerumen of bilateral ears 1447134046 128577 H61.23 913799 Hearing lo ss of left ear 808117259 H91.92 36518218 16249 WENDY PATEL PA-C [facility] [address] [address] 10/23/2024 13:00:43 10/23/2024 14:37:47 Sensorineural hearing loss of bilateral ears 054972320 H90.3 98897234 Audiologic al evaluation results: 10/23/2024 Right ear: Normal through 3 kHz sloping to a mild sensorineu ral hearing loss with excellent word recognitio n. Left ear: Mild rising to normal sloping to moderate sensorineu ral hearing loss with excellent word recognitio n. Tympanomet ry: Right Ear:Type Ad Left Ear:Type A Impacted c erumen in left ear [id number] 761196 H61.22 8493369 83571 JOHNATHON SÁNCHEZ, AUD [place] [address] [facility],[address] [place] [address] 11/15/2024 12:36:28 11/16/2024 13:07:37 Sensorineural hearing loss of bilateral ears 469280480 H90.3 72005821 07566 Preet Gil, DO [facility] 100 [place] [address] 02/11/2025 09:25:36 02/11/2025 10:16:12 Sensorineural hearing loss of bilateral ears 994541675 H90.3 67095053 Impacted c erumen in left ear 0763148950 467249 H61.22 8202174 Mass of tongue 736745928 K14.8 5483542 6 mm base of tongue Health Concerns Section Related Observation LastModified by Organization Detai ls LastModified Time None Recorded Concern Status LastModified by Organization Details LastModified Time None Recorded Advance Directives Directive None Recorded Payers Insurance Date Sequence Insurance Name Policy Number Policy Reynaga Covered Member ID Reynaga Member ID Guarantor Name 04/23/2025 1 [facility] [id number] 3 Armen Olson [id number] Armen Olson Notes Date Note Type Note [...] cervical fusion, and SINA. He works at [employer]. BAYRON WINSTON MD 100 [facility],[address], [address], [facility] - [facility] 10/08/2024 12:19:23 10/23/2024 text/html ROS as noted in the HPI 49-year-old male with longstanding left-sided sensorineural hearing loss and ETD presents for hearing evaluation. He used to wear left-sided amplification, but could not tolerate. Most recent audiogram was 20 years ago. Denies tinnitus or vertigo. Denies ear pain or drainage. Denies recurrent ear infections or prior ear surgeries. No history of loud noise exposure. Occasional Q tip use. He works at [employer]. MAGALIS GAONA MD 100 [facility],[address], [address], [facility] 10/23/2024 16:09:53 11/15/2024 text/html Patient has a known asymmetrical SNHL >AD. He was recently cleared for amplification for his left ear. He has tried hearing aids in the past without much success. He feels he does fine without any amplification. JOHNATHON POZO, STEVE 100 [facility],[address], [address], [facility] 11/15/2024 13:19:38 02/11/2025 text/html ROS as [...] Occasional Q tip use. He works at [employer]. Preet iGl, DO 100 [facility],[address], [address], [facility] 02/11/2025 10:17:28
--- OUTSIDE RECORDS SUMMARY | 2025-04-26 06:17 | XMS_ITS | Encounter Summary ---
Author Organization [facility] Address [address] [place] [address] Phone Care Team Providers Care Workers' Compensation Commissioner Name Role Phone Lennox Tsang MD Primary Care Provider [phone]- [phone] Encounter Details Date Type Department Care Team (Late st Contact Info) Description 09/01/2023 Documentation Only [facility] [address] [place] [address] Preet Valenzuela DO [address] [facility] [place] [address] Social History Tobacco Use Types [...] Visit [facility] [address] [address] [place] [address] Preet Valenzuela DO [address] [facility] [place] [address] documented as of this encounter Visit Diagnoses Not on filedocumented in this encounter Care Teams Workers' Compensation Commissioner Relationship Specialty Start Date End Date Lennox Tsang MD [address] [place], [place] PCP - General Internal Medicine 08/09/22 documented as of this encounter
--- OUTSIDE RECORDS SUMMARY | 2025-04-26 06:17 | XMS_ITS | Encounter Summary ---
Author Organization [facility] [place], Address [address] [place] [address] Phone Care Team Providers Care Ross Furnace Operator Name Role Phone Lennox Tsang MD Primary Care Provider Reason for Visit * Reason Comments Med Refill Encounter Details Date Type Department Care Team (Late st Contact Info) Description 08/29/2023 Refill [facility] [address] [place] [address] Preet Valenzuela DO [address] [facility] [place] [address] Hypokalemia; Heart failure with normal [...] Visit [facility] [address] [address] [place] [address] Preet Valenzuela DO [address] [facility] [place] [address] documented as of this encounter Visit Diagnoses Diagnosis Hypokalemia Heart failure with normal ejection fraction (HCC) documented in this encounter Care Teams Ross Furnace Operator Relationship Specialty Start Date End Date Lennox Tsang MD [address] [place], [place] PCP - General Internal Medicine 08/09/22 documented as of this encounter
--- OUTSIDE RECORDS SUMMARY | 2025-04-26 06:17 | XMS_ITS | Encounter Summary ---
Author Organization [facility] [place], Address [address] [place] [address] Phone Care Team Providers Care Licensed Tax Consultant Name Role Phone Lennox Tsang MD Primary Care Provider Encounter Details Date Type Department Care Team (Late st Contact Info) Description 10/05/2024 Orders Only [facility] [place] [address] [place] [address] Preet Valenzuela DO [address] [facility] [place] [address] Hypokalemia; Heart failure with normal [...] Visit [facility] [place] [address] [place] [address] Preet Valenzuela, [address] [place] [address] documented as of this encounter Visit Diagnoses Diagnosis Hypokalemia Heart failure with normal ejection fraction (HCC) Hypercalcemia documented in this encounter Care Teams Licensed Tax Consultant Relationship Specialty Start Date End Date Lennox Tsang MD [address] [place] [address] [address] [place], [place] PCP - General Internal Medicine 08/09/22 documented as of this encounter
--- OUTSIDE RECORDS SUMMARY | 2025-04-26 06:17 | XMS_ITS | Encounter Summary ---
Author Organization [facility] Address [address] [place] [address] Care Team Providers Care Liquid Chlorine Operator Name Role Phone Lennox Tsang MD Primary Care Provider [phone]- [phone] Reason for Visit * Reason Onset Date Comments INR results 04/24/2025 Encounter Details Date Type Department Care Team (Late st Contact Info) Description 04/24/2025 Telephone [facility] Cardiology [facility] [address] [place] [address] Rupesh Caldwell [place] Social History Tobacco Use Types Packs/Day Years [...] as of this encounter Progress Notes * Zac Lal MD - 04/24/2025 2:48 PM EST Called the patient to make sure he has enough lovenox and he does * Rupesh Caldwell MA - 04/24/2025 2:00 PM EST Linda from [facility] called to report that patient had parathyroid surgery on the 15 of April and has been off of the Warfarin for 5-6 days prior to surgery and has a low INR of 1.5. Linda states they will be giving the patient 10 mg of warfarin today and 10 mg tomorrow. He will be retesting on Tuesday. Linda also reports that patient has stopped taking Lovonox on Tuesday the and he is in the 2.5-3.5 range. Linda requested that the patient restart the Lovonox. documented in this encounter Plan of Treatment Not on file documented as of this encounter Visit Diagnoses Not on filedocumented in this encounter Care Teams Liquid Chlorine Operator Relationship Specialty Start Date End Date Lennox Tsang MD [address] [place] [address] [address] [place] [address] PCP - General Internal Medicine 03/22/25 documented as of this encounter
--- OUTSIDE RECORDS SUMMARY | 2025-04-26 06:17 | XMS_ITS | Encounter Summary ---
Author Organization [facility] Address [address] [place] [address] Phone Care Team Providers Care Audio Visual Technician Name Role Phone Lennox Tsang MD Primary Care Provider [phone]- [phone] Encounter Details Date Type Department Care Team (Late st Contact Info) Description 09/21/2023 Documentation Only [facility] [address] [place] [address] Preet Valenzuela DO [address] [facility] [place] [address] Social History Tobacco Use Types [...] [facility] [address] [address] Preet Valenzuela DO [address] [facility] [address] [place] [address] documented as of this encounter Visit Diagnoses Not on filedocumented in this encounter Care Teams Audio Visual Technician Relationship Specialty Start Date End Date Lennox Tsang MD [address] [place], [place] PCP - General Internal Medicine 08/09/22 documented as of this encounter
--- OUTSIDE RECORDS SUMMARY | 2025-04-26 06:18 | XMS_ITS | Encounter Summary ---
Author Organization [facility] Address [address] [place] [address] Phone Care Team Providers Care Boat Builder Name Role Phone Lennox Tsang MD Primary Care Provider Encounter Details Date Type Department Care Team (Late st Contact Info) Description 07/13/2024 Orders Only [facility] [address] [place] [address] Preet Valenzuela DO [address] [facility] [place] [address] Hypokalemia; Heart failure with normal [...] [facility] [address] [facility] [place] [address] Preet Valenzuela DO [address] [facility] [place] [address] documented as of this encounter Visit Diagnoses Diagnosis Hypokalemia Heart failure with normal ejection fraction (HCC) Hypercalcemia documented in this encounter Care Teams Boat Builder Relationship Specialty Start Date End Date Lennox Tsang MD [address] [place] [address] [address] [place] PCP - General Internal Medicine 08/09/22 documented as of this encounter
--- OUTSIDE RECORDS SUMMARY | 2025-04-26 06:18 | XMS_ITS | Encounter Summary ---
Author Organization [facility] Address [address] [place] [address] Phone Care Team Providers Care Animal Geneticist Name Role Phone Lennox Tsang MD Primary Care Provider [phone] Encounter Details Date Type Department Care Team (Late st Contact Info) Description 01/06/2023 Documentation Only [facility] [address] [place] [address] Preet Valenzuela DO [address] [address] [place] [address] Social History Tobacco Use Types Packs/Day Years [...] [facility] [address] [place] [address] Preet Valenzuela DO [address] [place] [address] Scheduled Orders Name Type Priority Associated Diagnoses [...] 10:08 AM EST) Creatinine, Urine 165.1 MG/DL [facility] Comment: Testing performed or reported by [facility], a Service of [facility], [address] [place] [address] Stephen Buckley MD, Club Former CLIA# [id number] Urine specimen (specimen) Urine specimen obtained by clean catch procedure / Unknown 06/01/2023 10:08 AM EST 06/01/2023 10:34 AM EST Preet [facility] URINE ORDERABLES Final Resu lt Performing Organization Address [facility] Co de Phone Number [facility] * (ABNORMAL) PTH, intact (06/01/2023 10:08 AM EST) PTH, Intact 124(H) (15-65) PG/ML [facility] Comment: Testing performed or reported by [facility], a Service of [facility], [address] [place] [id number] Stephen Buckley MD, Club Former CLIA# [id number] Blood specimen (specimen) Venous blood / Unknown 06/01/2023 10:08 AM EST 06/01/2023 10:33 AM EST Preet [facility] BLOOD ORDERABLES Final Resu lt Performing Organization Address City/[facility]/ZIP Co de Phone Number [facility] documented in this encounter Visit Diagnoses Diagnosis Hypercalcemia- Primary documented in this encounter Care Teams Animal Geneticist Relationship Specialty Start Date End Date Lennox Tsang MD [address] [place], [place] PCP - General Internal Medicine 08/09/22 documented as of this encounter
--- OUTSIDE RECORDS SUMMARY | 2025-04-26 06:18 | XMS_ITS | Continuity of Care Document ---
Author Organization [place] - [facility], [facility] Address [address] [place] [address] Care Team Providers Care Security Shift Supervisor Name Role Phone KHADIJAH GODWIN Primary Care [...] contr ast No observ ation record ed. [email or web address] Not Available 01/22 10:28:57 Result Notes None recorded. Problems Name Problem SNOMED Code Status Onset Date Resolution Date Notes Provider Name and Address Organization Details Recorded Time Impacted cerumen of bilateral ears 3024995231084 108 Active 2024 WENDY PATEL PA-C [address] [facility],[place] [address], [place], [address], [facility] - [facility] 5 12:06:34 Sensorineur al hearing loss of bilateral ears 134598140 Active 2024 STEVE CARRILLO [address] [facility],[place] [address], [place], [address], [facility] - [facility] [place] 5 13:25:21 Impacted cerumen in left ear 2766299910932 101 Active 2024 WENDY PATEL PA-C [address] [facility],[place] [address], [place], [address], [facility] 5 15:20:29 Mass of tongue 648896527 Active 2024 Preet Gil DO [address] [place] [address],[place] [address], [place], [address], [facility] - [facility] 5 08:52:45 Problem Notes None recorded. Procedures Surgical History Date Name Laterality Status Provider Name and Address Organization Details Recorded Time FOL_normal_DHL completed Preet Gil DO [address] [facility],[address], [address], [facility] 02/11/2025 10:15:38 Comp Audio with Tymps - 17457 & 25018 completed STEVE CARRILLO [address] [facility],[address], [place], [address], [facility] - [facility] 10/23/2024 13:25:16 5 Cerumen removal without microscope left completed WENDY PATEL PA-C [address], [place], [address], [facility] - [facility] 10/23/2024 15:21:03 5 Cerumen removal with microscope bilateral completed WENDY PATEL PA-C [address] [facility],[address], [place], [address], [facility] - [facility] 10/08/2024 10:40:11 Imaging Results None recorded. Procedure Notes None recorded. Medical Equipment None Reported. Allergies Allergen ID Allergen Name Allergen Category Reaction Reaction Severity Criticality Documentation Date Start Date Code Code System Note Provider Name and Address Organization Details Recorded Time 850305 ibuprofen medicatio n Not available Not available [...] Updated DateTime 02/11/2025 162.56 cm 36.9 kg/m2 18383.36 g Jose Garcia [place] - [facility] 02/11/2025 09:31:06 Social History Question Answer Notes LastModified by Organizat ion Details LastModified Time Tobacco Smoking Status Never Smoker Kim boyle [place] - [facility] 10/08/2024 10:14:11 What Type Of Certified Fraud Examiner Do You Use? None [email or web address] Information not available 10/08/2024 Do You Have Any Pets? No [email or web address] Information not available 10/08/2024 Are You Passively Exposed To Smoke? No [email or web address] Information not available 10/08/2024 Are There Any Smokers In Your House? No Information not available 10/08/2024 Sex: Unknown Functional Status Question Answer Note LastModified by Organization Details LastModified Time Do you use any illicit or recreational drugs? No Information not available 10/08/2024 Do you or have you ever used any other forms of tobacco or nicotine? No [email or web address] Information not available 10/08/2024 What is your level of alcohol consumption? 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 noExposureToExcessiveNoise Infor [email or web address] not available 10/08/2024 Mental Status None recorded. Family History Nothing Reported. Medical History Condition Response Allergies/Hayfever N Heart Problems Y Anxiety N Tonsil Infections N Emphysema N Migraines N Thyroid Problems Y COPD N Depression N Developmental Delay N Glaucoma N Nasal or Sinus Problems N Anemia N Immune System Disorder N Anesthesia Complications N Heart Attack ([place]) N Other Skin Condition N Diabetes Y [...] ICD10 Code Diagnosis IMO Codes Diagnosis Note 52290 Preet Gil DO [facility] [address] [address] 02/11/2025 09:25:36 02/11/2025 10:16:12 Sensorineural hearing loss of bilateral ears 312645701 H90.3 90611272 Impacted c erumen in left ear 8858855435 247524 H61.22 5322833 Mass of tongue 356078773 K14.8 5700552 6 mm base of tongue Health Concerns Section Related Observation LastModified by Organization Detai ls LastModified Time None Recorded Concern Status LastModified by Organization Details LastModified Time None Recorded Payers Encounter Date Sequence Insurance Name Policy Number Policy Reynaga Covered Member ID Reynaga Member ID Guarantor Name 02/11/[address] [place] [address] [id number] Armen Olson [id number] Armen Olson Notes Date Note Type Note [...] Occasional Q tip use. He works at [employer]. Preet Gil, [address] [facility] [address], [place], [address], [facility] - [facility] 02/11/2025 10:17:28
--- OUTSIDE RECORDS SUMMARY | 2025-04-26 06:18 | XMS_ITS | Patient Health Record ---
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[employer] [employer] Section Notes: Nonsmoker; no sig alcohol Problems Problem Type SNOMED Code ICD Code Onset Dates Problem Status W/U Status Risk Notes Problem Rectal bleeding (03083029) Rectal bleeding (K62.5) Active confirmed Problem Screening for malignant neoplasm of colon (572286040) Encounter for screening for malignant neoplasm of colon (Z12.11) Active confirmed Problem Diverticular disease of colon (015166229) Diverticulosis of large intestine without perforation or abscess without bleeding (K57.30) Active confirmed Plan Of Treatment Pending Test Test Name Order Date Pathology 11/24/2022 Future Test Test Name Order Date COLONOSCOPY 10/01/2022 Insurance Providers Payer Name Payer Address Payer Phone Subscriber Number Group Number Insured Name Patient Relationship to Insured Coverage Start Date Coverage End Date [facility] [address] [place] [address] [id number] SARINA HAN Self - patient is the insured Medical (General) History Medical History History ICD Code Denies GA,DM,CVA,Lung disease,renal dise ase 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 Lal in [place] Sleep apnea-CPAP Arrhythmia with PVC's Gout He describes that he has bee n told at [facility] that he is a difficult intubation Surgical History Surgery Date(Month/Year) Heart surgery for IHSS--his heart surgery in 2001 involved replacement of the aortic valve with a [employer] Fu[employer] valve 1984,1988,2001 Cervical spine fusion C1-C5 1988 Hernia repair--Bilateral inguinal and um bilical 2011,2014,2017, Tonsillectomy and adenoidectomy
--- OUTSIDE RECORDS SUMMARY | 2025-04-26 06:18 | XMS_ITS | Clinical Summary ---
Author Organization [facility], Address [address] [place] [address] Phone Care Team Providers Care Bilingual Sales Representative Name Role Phone Lennox Tsang MD Primary [...] Visit [facility] [address] [place] [address] Preet Valenzuela DO [address] [place] [address] Health Maintenance Due Date Last [...] Screening: Sigmoidoscopy 01/29/[address] [place] [address] [facility] Care Teams Bilingual Sales Representative Relationship Specialty Start Date End Date Lennox Tsang MD [address] [place] [address] [address] [place] [address] PCP - General Internal Medicine 08/09/22
[2025-04-26 07:05] LABS: INTERNATIONAL NORM RATIO 1.7 (0.9-1.1); Prothrombin Time 21.0 SEC (11.2-13.5)
== END 2025-04-26 06:13 | disposition home or self-care (01) ==
LOC: HO.LAB 06:12
PROVIDERS: PCP Internal Medicine; Visit Provider Internal Medicine Medical Oncology
DX: Z51.81 Encounter for therapeutic drug level monitoring (principal); Z79.01 Long term (current) use of anticoagulants
CPT/HCPCS: 36415; 85610; 99211

== ENCOUNTER 2025-04-26 10:24 | Outpatient (AMB) | payer OTHER, SELFPAY ==
--- NOTE | 2025-04-26 10:33 | MHC.OFFVISCO ---
Intake Intake Visit Reasons: Anticoagulation Allergies No Known Allergies Allergy (Verified 04/24/25 14:04) Nursing Note pt went to lab this am for INR test INR 1.7? out of therapeutic range 2.5-3.5 Medications and supplements reviewed Patient status: healing from a partial and parathyroid ectomy Medications or supplements: resume lovenox due to low INR Wed 1.5 Diet: avoiding greens Denies any signs and symptoms of bleeding or clotting or unusual bruising Bleeding, bruising, clotting discussed Nutritional guidance given: cont to avoid greens until INR above 2.5 Dose: 10mg Fri Sat Sun +Lovenox per md orders F/U INR Date : 04/29/25 ?? Patient verbalizing understanding of instructions given. 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
== END 2025-04-26 10:44 | disposition home or self-care (01) ==
LOC: HO.ACS 10:24
PROVIDERS: PCP Internal Medicine; Visit Provider Internal Medicine Medical Oncology
DX: Z79.01 Long term (current) use of anticoagulants (principal)

== ENCOUNTER 2025-04-26 10:49 | Outpatient (REF) | payer OTHER, SELFPAY ==
[2025-04-26 10:55] LABS: MANUAL DIFF FLAG NO
[2025-04-26 11:16] LABS: Hematocrit 37.9 % (42.0-52.0); Hemoglobin 12.4 g/dl (14.0-18.0); Imm Gran Abs Auto 0.27 X10*3/uL (0.00-0.03); Imm Gran Pct Auto 2.3 % (0.0-0.4); Lymphocytes Absolute Auto 1.6 X10*3/uL (1.2-4.9); Mean Corpuscular HGB Conc 32.7 g/dl (31.0-36.0); Mean Corpuscular Hemoglobin 29.0 pg (27.0-33.0); Mean Corpuscular Volume 88.6 fL (80.0-98.0); NRBC Abs Auto 0.000 X10*3/uL (0.0-0.012); NRBC Pct Auto 0.0 /100WBC (0.0-0.2); Platelet Count 290 X10*3/uL (160-400); Red Blood Count 4.28 X10*6/uL (4.60-5.80); White Blood Count 11.8 X10*3/uL (4.8-10.8)
[2025-04-26 11:27] LABS: Appearance Urine Clear; Glucose Urine UA Negative (Negative); PH 5.5 (5.0-9.0); Specific Gravity - Urine 1.015 (1.005-1.025)
[2025-04-26 12:14] LABS: Microalbum/Creatinine Ratio Ur 36.1 ug/mg cr (<30)
[2025-04-26 12:19] LABS: Alanine Aminotransferase 34 U/L (0-40); Albumin Level 4.9 g/dL (3.5-5.0); Alkaline Phosphatase 88 U/L (39-117); Anion Gap 16 (12-20); Aspartate Amino Transferase 44 U/L (5-37); Blood Urea Nitrogen 23 mg/dL (9-16); Calcium 9.9 mg/dL (8.4-10.2); Carbon Dioxide 26 mmol/L (22-29); Chloride 99 mmol/L (96-108); Cholesterol 172 mg/dL (<200); Estimated Glomerular Filt Rate 54; HDL Cholesterol 37 mg/dL (>40); Potassium 4.4 mmol/L (3.3-5.1); Sodium 137 mmol/L (135-145); Total Protein 8.0 g/dL (6.5-8.0); Triglycerides 285 mg/dL (<150)
[2025-04-26 13:34] LABS: PSA,Total (Free>4and<10) 0.31 ng/mL (0.00-4.00)
== END 2025-04-26 10:50 | disposition home or self-care (01) ==
LOC: HO.LNP 10:49
PROVIDERS: Visit Provider Internal Medicine
DX: Z00.00 Encounter for general adult medical examination without abnormal findings (principal); Z12.5 Encounter for screening for malignant neoplasm of prostate; I50.22 Chronic systolic (congestive) heart failure; E11.9 Type 2 diabetes mellitus without complications; E78.00 Pure hypercholesterolemia, unspecified
CPT/HCPCS: 80053; 80061; 81001; 82043; 82570; 83036; 84153; 85025

== ENCOUNTER 2025-04-29 16:32 | Outpatient (AMB) | payer OTHER, SELFPAY ==
--- OUTSIDE RECORDS SUMMARY | 2025-01-28 04:36 | XMS_ITS ---
Author Organization Lennox Tsang MD Address [address] [place] [phone] Care Team Providers Care Permanent Waver Name Role Phone Lennox Tsang Primary Care Provider REASON FOR VISIT Refill Request Encounters Encounter Location Date Provider Diagnosis Lennox Tsang MD [address] [place] [address] [place] [address] [phone] 01/28/2025 Lennox Tsang Plan Of Treatment Next Appt Details Provider Name:Lennox Reyes ier, 05/03/2025 02:30:00 PM, [address] [place] [address], Suite [facility], [place], [place], [phone], Progress Notes * Ian HANOB:1975 (49 yo M)Acc No.[id number]:01/28/2025 Patient: Armen HAWKINS :1975 A ge:49 Y S ex:Male Address:[address] [place] [address], [address], [place] [address] * true * Date: Generated for Gabriela velazquez/Sarah/eTransmitting on: 07/01/2024 01:58 AM EST
--- OUTSIDE RECORDS SUMMARY | 2025-04-26 02:33 | XMS_ITS ---
Author Organization Lennox Tsang MD Address [address] [place] [phone] Care Team Providers Care Offal Trimmer Name Role Phone Lennox Tsang Primary Care Provider REASON FOR VISIT RE:Lab Work Encounters Encounter Location Date Provider Diagnosis Lennox Tsang MD [address] [facility] [address] [place] [phone] 04/26/2025 Lennox Tsnag Plan Of Treatment Next Appt Details Provider Name:Lennox Reyes ier, 05/03/2025 02:30:00 PM, [address] [place] [address], Suite [facility], [place], [place], [phone], Progress Notes * Ian HANOB:1975 (50 yo M)Acc No.[id number]:04/26/2025 Patient: Armen HAWKINS :1975 A ge:50 Y S ex:Male Address:[address] [place] [address], [address], [place] [address] * true * Date: Generated for Moyi marcus/Sarah/eTransmitting on: 07/01/2024 01:58 AM EST
[2025-04-29 16:38] LABS: Prothrombin Time Whole Bld POC 31.1 sec (11.1-13.5); ~PT, ~INR - Anti Coag Clinic 2.6 (0.9-1.1)
--- NOTE | 2025-04-29 16:45 | MHC.OFFVISCO ---
Intake Intake Visit Reasons: Anticoagulation Allergies No Known Allergies Allergy (Verified 04/29/25 16:32) Medication List - Last Reconciled 04/29/25 by Mishel Logan RN albuterol sulfate 90 mcg/actuation 0 mcg inhalation allopurinol 300 mg PO DAILY atorvastatin 20 mg PO QPM colchicine 0.6 mg PO BID PRN enoxaparin 100 mg See Protocol subcut Q12H metformin ER 1,000 mg PO BID metolazone mg PO metoprolol succinate ER 50 mg PO DAILY spironolactone 100 mg PO BID torsemide 40 mg PO DAILY [VITAMIN D 3 PO] warfarin 5 mg See Protocol PO DAILY Nursing Note INR: 2.6 in therapeutic range 2.5-3.5 Medications and supplements reviewed No changes in health, diet, medications, or supplements, Denies any signs and symptoms of bleeding or bruising or clotting. Bleeding, bruising, clotting discussed Nutritional guidance given Dose: resume usual dose this week - he had 10mg yesterday =10mg x 4 days this week, then 10mg mwf/ 7/5mg x 4 days F/U INR: 05/03/25 Patient verbalizes understanding of instructions given Anti-Coag Initial Assessment Social Hx Patient Tobacco Use Status: Never used Tobacco Coding Level of Care Code Est Patient Level 1 Diagnoses Current use of anticoagulant therapy Z79.01 Results AMB INR Fingerstick AMB INR Fingerstick 2.7 Last Edit by Mishel Logan RN on 04/29/25 16:40 manual entry AMB INR Fingerstick AMB INR Fingerstick 2.6 Last Edit by Mishel Logan RN on 04/29/25 16:49 manual entry Assessment & Plan Assessment & Plan (1) Current use of anticoagulant therapy: Code(s): Z79.01 - nursing home (current) use of anticoagulants Category: Medical
--- OUTSIDE RECORDS SUMMARY | 2025-04-30 02:00 | XMS_ITS | Patient Health Record ---
Author Organization [facility] Address [address] [place] [address] Care Team Providers Care Enrollment Management Vice President Name Role Phone Lennox Tsang Primary Care [...] Status Risk Notes Problem Atherosclerosis of artery (226216103) Arterial atherosclerosis (I70.8) Active confirmed Plan Of Treatment Pending Test Test Name Order Date EMIL 04/19/2022 Ultrasound : Artery Doppler Low Ext Bila t 04/19/2022 X ray : Foot, left 3v 04/19/2022 Insurance Providers Payer Name Payer Address Payer Phone Subscriber Number Group Number Insured Name Patient Relationship to Insured Coverage Start Date Coverage End Date [facility] [address] [place], [place] [address] [id number] Armen Olson Self - patient is the [...]
--- OUTSIDE RECORDS SUMMARY | 2025-04-30 02:00 | XMS_ITS | Clinical Summary ---
Author Organization [facility] Address [address] [place] [address] Care Team Providers Care Circulation Assistant Name Role Phone Lennox Tsang MD Primary Care Provider [phone] Allergies No known active allergies Medications spironolactone [...] M, W, Th, Sat, Sun. Coumadin clinic [facility]. managing INR Active atorvastatin (LIPITOR) 20 [...] the morning 90 tablet 2 5 Active enoxaparin (LOVENOX) 100 mg/mL syringeIndicati ons:H/O aortic valve replacement Inject 1 mL (100 mg total) under the skin every 12 (twelve) hours. 8 each 3 5 Active enoxaparin (LOVENOX) 100 mg/mL syringeIndicati ons:H/O aortic valve replacement Inject 1 mL (100 mg total) under the skin every 12 (twelve) hours. 14 each 5 025 Discontin ued(Reord er) enoxaparin (LOVENOX) 100 mg/mL syringeIndicati ons:H/O aortic valve replacement Inject 1 mL (100 mg total) under the skin every 12 (twelve) hours. 8 each 3 5 025 Discontin ued(Reord er) Active Problems Problem Noted [...] has upcoming echocardiogram scheduled. CHF exacerbation 06/22/2022 Assessment & Plan (03/22/2025 5:28 PM EDT): [...] Transfer text Palpitations 06/22/2022 Diastolic heart failure 01/02/2021 Assessment & Plan (03/22/2025 5:28 PM EDT): Patient with diastolic heart failure secondary to hypertrophic cardiomyopathy status post myomectomy and valve replacement. Patient is well-maintained as far as volume status at this time with no need for any changes Orders: ECG 12 lead Subaortic stenosis 06/02/2020 PVC (premature ventricular contraction) 06/02/19 21 Encounters Date Type Department Care Team Description 04/24/2025 Telephone [facility] Cardiology [facility] [address] [place] [address] [address] [place] [address] Rupesh Caldwell [place] 04/02/2025 Telephone [facility] [address] [place] [address] [address] [place] [address] Zac Lal MD 04/01/2025 Telephone [facility] [address] [place] [address] [place] [address] Provider, Not In System 03/26/2025 Telephone [facility] Dr [address] [facility] [address] [place] [address] Zac Lal MD 03/22/2025 3:00 PM EDT Office Visit [address] [place] [address] Zac Lal MD Chronic diastolic heart failure [...] GEMUSE QTc 505 ms GEMUSE P Wave [place] 25 degrees GEMUSE R [place] 43 degrees GEMUSE T [place] -146 degrees GEMUSE ECG Interpretation Normal sinus rhythm Possible Left atrial enlargement Left bundle branch block Abnormal ECG When compared with ECG of 01-JUN-2024 08:17, No significant change was found Confirmed by Beba LAL JAMES ([id number]) on 03/22/2025 5:18:37 PM GEMUSE 03/22/2025 3:26 PM EDT 03/22/2025 5:18 PM EDT us Zac Lal MD ECG ORDERABLES Final Result GEMUSE from Last 3 Months Insurance [facility] Care Teams Circulation Assistant Relationship Specialty Start Date End Date Lennox Tsang MD [address] [place] [address] PCP - General Internal Medicine 03/22/25
--- OUTSIDE RECORDS SUMMARY | 2025-04-30 02:02 | XMS_ITS | Continuity of Care Document ---
Author Organization [place] - [facility], [facility] Address [address] [place] [address] Care Team Providers Care Alterations Sewer Name Role Phone KHADIJAH GODWIN Primary Care Provider [phone] Assessment Encounter Date Assessment Date Assessment LastModified by Organization Details LastModified Time 04/26/2025 04/26/2025 50-year-old male presents for wax removal. Cerumen impaction was completely obstructing the narrow external auditory canals bilaterally and removed using a combination of instruments and suction. Patient tolerated the procedure well. Tympanic membranes are otherwise intact with well aerated middle ear spaces. Follow up in 6 months for repeat debridement. [email or web address] Not available 04/26/2025 13:55:50 Plan of Treatment Reminders Order Date Submit Date Provider Last Modified By Organization Details Last Modified Time Details Appointments Establish ed 15 2025 09:15A Ida Gil, Not available Not available Not available Establish ed 15 2025 02:15P SHERI ARNOLD Not available Not available Not available Lab None recorded. Referral None recorded. Procedures None recorded. Surgeries None recorded. Imaging None recorded. Medication Orders mineral oil topical 2024 025 [facility] ([facility]), [address] [place] [address], [address], 04/26/2025 13:35:22 Patient TargetsNo targets recorded. Patient InstructionsNo instructions recorded. Reason for Referral None Reported. Problems Name Problem SNOMED Code Status Onset Date Resolution Date Notes Provider Name and Address Organization Details Recorded Time Impacted cerumen of bilateral ears 8324810468861 108 Active 2024 WENDY PATEL PA-C 100 [facility],[address] E [facility], [place], [address], [place] - [facility] [place] 5 12:06:34 Sensorineur al hearing loss of bilateral ears 528301533 Active 2024 JOHNATHON POZO, AUD 100 [facility],[place] [address], [place], [address], [place] - [facility] [place] 13:25:21 Impacted cerumen in left ear 5631232388708 101 Active 2024 WENDY PATEL PA-C 100 [facility],[place] [address], [place], [address], [facility] - [facility] [place] 15:20:29 Mass of tongue 660939111 Active 2024 Preet Gil, DO 100 [facility],[place] [address], [place], [address], [place] - [facility] [place] 5 08:52:45 Problem Notes None recorded. Procedures Surgical History Date Name Laterality Status Provider Name and Address Organization Details Recorded Time 5 Cerumen removal without microscope bilat completed EDWARD CABEZAS AL 100 [facility],[address], [address], [place] - [facility] [place] 04/26/2025 13:55:20 5 FOL_normal_DHL completed Preet Gil DO 100 [facility],[address], [address], [facility] - [facility] [place] 02/11/2025 10:15:38 5 Comp Audio with Tymps - 05031 & 02532 completed JOHNATHON POZO, AUD 100 [facility],[address], [address], [facility] - [facility] [place] 10/23/2024 13:25:16 5 Cerumen removal without microscope left completed WENDY PATEL PA-C 100 [facility],[address], [address], [facility] - [facility] 10/23/2024 15:21:03 Cerumen removal with microscope bilateral completed WENDY PATEL PA-C 100 [facility],[place] [address], [place], [address], [facility] 10/08/2024 10:40:11 Imaging Results None recorded. Procedure Notes None recorded. Medical Equipment None Reported. Allergies Allergen ID Allergen Name Allergen Category Reaction Reaction Severity Criticality Documentation Date Start Date Code Code System Note Provider Name and Address Organization Details Recorded Time 396495 ibuprofen medicatio n Not available Not available [...] No t Available torsemide 20 mg tablet 40 mg every day by oral route. active Not Available Not Available No t [...] WITH FOOD OR MILK FOR 5 DAYS 04/25 completed Not Available Not Available Not Available spironolact one 100 mg tablet TAKE 1 TABLET BY MOUTH EVERY MORNING AND 1 TABLET IN THE EVENING. active Not Available Not Available No t Available benzonatate 100 mg capsule TAKE 1 CAPSULE BY MOUTH 3 TIMES A DAY FOR 7 DAYS 04/25 completed Not Available Not Available Not Available warfarin 5 mg tablet TAKE 2 [...] [place] IN EACH NOSTRIL TWICE A DAY 04/25 completed Not Available Not Available Not Available metformin ER 500 mg tablet,exte nded release 24 hr active Not Available Not Available Not Available oxycodone 5 mg tablet TAKE 1 TABLET BY MOUTH EVERY 6 HOURS NEEDED FOR SEVERE PAIN 04/25 completed Not Available Not Available Not Available mineral oil topical Instill 4 drops into each ear twice weekly 2024 active Not Available Not Available Not Avai lable enoxaparin 100 mg/mL subcutaneou s syringe INJECT THE CONTENTS OF 1 SYRINGE SUBCUTANE OUSLY EVERY 12 HOURS active Not Available Not Available No t Available Vitals Date Recorded Body height Body mass index (BMI) Body weight Provider Name and Address Organization Details Last Updated DateTime 04/26/2025 162.56 cm 34.3 kg/m2 91937.47 g Agustina Reyes [place] - [facility] 04/26/2025 13:01:20 Social History Question Answer Notes LastModified by Organizat ion Details LastModified Time Tobacco Smoking Status Never Smoker Kim boyle [place] - [facility] 10/08/2024 10:14:11 What Type Of Locksmith Apprentice Do You Use? None Information not available 10/08/2024 Do You Have Any Pets? No Information not available 10/08/2024 Are You Passively Exposed To Smoke? No Information not available 10/08/2024 Are There Any Smokers In Your House? No [email or web address] Information not available 10/08/2024 Sex: Unknown Functional Status Question Answer Note LastModified by Organization Details LastModified Time Do you use any illicit or recreational drugs? No [email or web address] Information not available 10/08/2024 Do you or have you ever used any other forms of tobacco or nicotine? No [email or web address] Information not available 10/08/2024 What is your level of alcohol consumption? 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 noExposureToExcessiveNoise [email or web address] Infor [email or web address] not available 10/08/2024 Mental Status None recorded. Family History Nothing Reported. Medical History Condition Response Allergies/Hayfever N Heart Problems Y Anxiety N Tonsil Infections N Emphysema N Migraines N Thyroid Problems Y COPD N Depression N Developmental Delay N Glaucoma N Nasal or Sinus Problems N Anemia N Immune System Disorder N Anesthesia Complications N Heart Attack ([place]) N Other Skin Condition N Diabetes Y [...] ICD10 Code Diagnosis IMO Codes Diagnosis Note [id number] SHERI SHOOK [facility] of [address] [address] 04/26/2025 12:35:17 04/26/2025 13:40:56 Impacted cerumen of bilateral ears 2272109144 520704 H61.23 059414 Will switch from hydrogen peroxide to mineral oil to better soften the wax. Health Concerns Section Related Observation LastModified by Organization Detai ls LastModified Time None Recorded Concern Status LastModified by Organization Details LastModified Time None Recorded Payers Encounter Date Sequence Insurance Name Policy Number Policy Reynaga Covered Member ID Reynaga Member ID Guarantor Name 04/26/[address] [place] [address] [id number] Armen Wesley [id number] Armen Olson Notes Date Note Type Note Provider Name and Address Organization Details Recorded Time 04/26/2025 text/html ROS as noted in the HPI 50-year-old male presents for wax removal. Patient is doing well overall with no acute concerns to report today. He uses a 50/50 hydrogen peroxide and water solution for maintenance. Hearing is stable. PREET RENTERIA MD [address] [place] [address], [address], [facility] - [facility] 04/26/2025 17:39:45
--- OUTSIDE RECORDS SUMMARY | 2025-04-30 02:07 | XMS_ITS | Encounter Summary ---
Author Organization [facility] Address [address] [place] [address] Care Team Providers Care Clinical Trainer Name Role Phone Lennox Tsang MD Primary Care Provider [phone] Reason for Visit * Reason Onset Date Comments Medical Records 04/01/2025 Encounter Details Date Type Department Care Team (Late st Contact Info) Description 04/01/2025 Telephone [facility] [address] [place] [address] Provider, Not In System Social [...] Faxed 03/22/2025 Office Note and EKG to [facility] Preop Dept. Att:Penny at [phone] on 04/01/2025 documented in this encounter Plan of Treatment Not on file documented as of this encounter Visit Diagnoses Not on filedocumented in this encounter Care Teams Clinical Trainer Relationship Specialty Start Date End Date Lennox Tsang MD [address] [place] [address] PCP - General Internal Medicine 03/22/25 documented as of this encounter
--- OUTSIDE RECORDS SUMMARY | 2025-04-30 02:07 | XMS_ITS | Data Portability ---
Author Organization [place] - [facility], Allergy Address 100 [facility] [address] [place] [address] Care Team Providers Care Clinical Specialist Name Role Phone KHADIJAH GODWIN Primary Care [...] pursing due to limited finances. F/U PRN. [email or web address] Not available 11/15/2024 13:19:16 02/11/2025 02/11/2025 49-year-old [...] months later [email or web address] Not available 02/11/2025 10:17:18 04/26/2025 04/26/2025 50-year-old male presents for wax [...] Medication Orders mineral oil topical 2024 025 [facility] ([facility]), [address] [place] [address], [place], [address], 04/26/2025 13:35:22 Patient TargetsNo targets recorded. Patient InstructionsNo instructions recorded. Reason for Referral None Reported. Results Created Date Observation Date Name Description Value Unit Range Abnormal Flag Note LastModifiedBy Organization Detail LastModifiedTime 10/24/19 audio gram No observ ation record ed. BARCODE Not Available 2024 15:37:00 02/12/20 25 11/09/2024 CT, neck, soft tissu e, w/wo contr ast No observ ation record ed. [email or web address] Not Available 01/22 10:28:57 Result Notes None recorded. Problems Name Problem SNOMED Code Status Onset Date Resolution Date Notes Provider Name and Address Organization Details Recorded Time Impacted cerumen of bilateral ears 0111450419836 108 Active 2024 WENDY PATEL PA-C 100 [facility],[address] [facility], [place], [address], [facility] 5 12:06:34 Sensorineur al hearing loss of bilateral ears 271815093 Active 2024 STEVE CARRILLO 100 [facility],[address] [facility], [facility], [address], [facility] 5 13:25:21 Impacted cerumen in left ear 0582322089378 101 Active 2024 WENDY PATEL PA-C 100 [facility], [address], [facility], [address], [facility] 5 15:20:29 Mass of tongue 683214941 Active 2024 Preet Gil DO 100 [facility],[address], [facility], [address], [facility] 5 08:52:45 Problem Notes None recorded. Procedures Surgical History Date Name Laterality Status Provider Name and Address Organization Details Recorded Time Cerumen removal without microscope bilat completed SHERI SHOOK 100 [facility],[address], [place], [address], [facility] - [facility] [place] 04/26/2025 13:55:20 5 FOL_normal_DHL completed Preet Gil, DO 100 [facility],[address], [address], [facility] - [facility] [place] 02/11/2025 10:15:38 5 Comp Audio with Tymps - 54915 & 51864 completed JOHNATHON POZO, AUD 100 [facility],[address], [address], [facility] - [facility] [place] 10/23/2024 13:25:16 5 Cerumen removal without microscope left completed WENDY PATEL PA-C 100 [facility],[address], [address], [facility] - [facility] 10/23/2024 15:21:03 5 Cerumen removal with microscope bilateral completed WENDY PATEL PA-C 100 [facility],[address], [address], [facility] - [facility] 10/08/2024 10:40:11 Imaging Results None recorded. Procedure Notes None recorded. Medical Equipment None Reported. Allergies Allergen ID Allergen Name Allergen Category Reaction Reaction Severity Criticality Documentation Date Start Date Code Code System Note Provider Name and Address Organization Details Recorded Time 967969 ibuprofen medicatio n Not available Not available Not available 04/26/2025 5640 RxNorm Not Available [email or web address] - External Data Service - prod 5 03:18:39 Medications Name Sig Start Date Stop [...] Address Organization Details Last Updated DateTime 10/08/2024 70595.77 g 36.7 kg/m2 162.56 cm Kim Galo [place] - [facility] 10/08/2024 10:13:37 Date Recorded Body height Body mass index (BMI) Body weight Provider Name and Address Organization Details Last Updated DateTime 10/23/2024 162.56 cm 36.9 kg/m2 66512.36 g Agustina Reyes [place] - [facility] 10/23/2024 13:45:09 Date Recorded Body height Body mass index (BMI) Body weight Provider Name and Address Organization Details Last Updated DateTime 02/11/2025 162.56 cm 36.9 kg/m2 83551.36 g Jose Garcia [place] - [facility] 02/11/2025 09:31:06 Date Recorded Body height Body mass index (BMI) Body weight Provider Name and Address Organization Details Last Updated DateTime 04/26/2025 162.56 cm 34.3 kg/m2 44373.47 g Agustina Reyes [place] - [facility] 04/26/2025 13:01:20 Social History Question Answer Notes LastModified by Organizat ion Details LastModified Time Tobacco Smoking Status Never Smoker Kim boyle [place] - [facility] 10/08/2024 10:14:11 What Type Of Optometry Assistant Do You Use? None [email or web address] Information not available 10/08/2024 Do You Have Any Pets? No [email or web address] Information not available 10/08/2024 Are You Passively Exposed To Smoke? No [email or web address] Information not available 10/08/2024 Are There Any Smokers In Your House? No Information not available 10/08/2024 Sex: Unknown Functional Status Question Answer Note LastModified by Organization Details LastModified Time Do you use any illicit or recreational drugs? No [email or web address] Information not available 10/08/2024 Do you or have you ever used any other forms of tobacco or nicotine? No [email or web address] Information not available 10/08/2024 What is your level of alcohol consumption? 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 noExposureToExcessiveNoise [email or web address] Infor mation not available 10/08/2024 Mental Status None recorded. Family History Nothing Reported. Medical History Condition Response Allergies/Hayfever N Heart Problems Y Anxiety N Tonsil Infections N Emphysema N Migraines N Thyroid Problems Y Glaucoma N Depression N COPD N Developmental Delay N Nasal or Sinus Problems N Anemia N Immune System Disorder N Anesthesia Complications N Heart Attack ([place]) N Other Skin Condition N Diabetes Y [...] ICD10 Code Diagnosis IMO Codes Diagnosis Note [id number] WENDY PATEL PA-C [facility] of [address] [address] 10/08/2024 09:55:54 10/08/2024 10:46:57 Impacted cerumen of bilateral ears 1137286108 787197 H61.23 980315 Hearing lo ss of left ear 502375958 H91.92 50527537 [id number] WENDY PATEL PA-C [facility] of [address] [address] 10/23/2024 13:00:43 10/23/2024 14:37:47 Sensorineural hearing loss of bilateral ears 661699550 H90.3 88658589 Audiologic al evaluation results: 10/23/2024 Right ear: Normal through 3 kHz sloping to a mild sensorineu ral hearing loss with excellent word recognitio n. Left ear: Mild rising to normal sloping to moderate sensorineu ral hearing loss with excellent word recognitio n. Tympanomet ry: Right Ear:Type Ad Left Ear:Type A Impacted c erumen in left ear 4429356450 030709 H61.22 7341132 36145 STEVE CARRILLO HERNANDEZ - [address] [address] 11/15/2024 12:36:28 11/16/2024 13:07:37 Sensorineural hearing loss of bilateral ears 003967183 H90.3 15856696 09932 Preet Gil DO [facility] [address] [address] 02/11/2025 09:25:36 02/11/2025 10:16:12 Sensorineural hearing loss of bilateral ears 124433561 H90.3 76588974 Impacted c erumen in left ear 6761907799 832978 H61.22 6252793 Mass of tongue 134964791 K14.8 5814641 6 mm base of tongue 29662 SHERI SHOOK [facility] of [address] [address] 04/26/2025 12:35:17 04/26/2025 13:40:56 Impacted cerumen of bilateral ears 6320003318 594624 H61.23 958605 Will switch from hydrogen peroxide to mineral [...] ID Guarantor Name 04/23/2025 1 [facility] [id number] 3 Armen Olson [id number] Armen Olson Notes Date Note Type Note Provider Name and Address Organization Details Recorded Time 10/08/2024 text/html ROS as noted in the [facility] 49yo male presents for evaluation of [...] cervical fusion, and SINA. He works at [employer]. BAYRON WINSTON MD [address] [place] [address], [address], [facility] - [facility] 10/08/2024 12:19:23 10/23/2024 text/html ROS as [...] Occasional Q tip use. He works at [employer]. MAGALIS GAONA MD 100 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 He was recently cleared for amplification for his left ear. He has tried hearing aids in the past without much success. He feels he does fine without any amplification. STEVE CARRILLO 100 [facility],[address], [address], [facility] - [facility] 11/15/2024 13:19:38 02/11/2025 text/html ROS as [...] Occasional Q tip use. He works at [employer]. Preet Gil DO 100 [facility],[address], [address], [facility] - [facility] 02/11/2025 10:17:28 04/26/2025 text/html ROS as noted in the HPI 50-year-old male presents for wax removal. Patient is doing well overall with no acute concerns to report today. He uses a 50/50 hydrogen peroxide and water solution for maintenance. Hearing is stable. PREET RENTERIA MD 100 [facility],[address], [address], [facility] 04/26/2025 17:39:45
--- OUTSIDE RECORDS SUMMARY | 2025-04-30 02:17 | XMS_ITS | Continuity of Care Document ---
Author Organization [place] - [facility], [facility] Address [address] [place] [address] Care Team Providers Care Automotive Exhaust Emissions Technician Name Role Phone KHADIJAH GODWIN Primary Care Provider [phone] Assessment Encounter Date Assessment Date Assessment LastModified [...] Establish ed 15 2025 09:15A Ida Gil, DO Not available Not available Not available Establish [...] contr ast No observ ation record ed. [email or web address] Not Available 01/22 10:28:57 Result Notes None recorded. Problems Name Problem SNOMED Code Status Onset Date Resolution Date Notes Provider Name and Address Organization Details Recorded Time Impacted cerumen of bilateral ears 3085657496023 108 Active 2024 WENDY PATEL PA-C [address] [facility],[address], [place], [address], [facility] - [facility] 5 12:06:34 Sensorineur al hearing loss of bilateral ears 699408601 Active 2024 STEVE CARRILLO [address] [facility],[address] [facility], [place], [address], [facility] - [facility] 5 13:25:21 Impacted cerumen in left ear 3886888743559 101 Active 2024 WENDY PATEL PA-C [address] [facility],[address], [place], [address], [facility] 5 15:20:29 Mass of tongue 587826582 Active 2024 Preet Gil DO [address] [place] [address],[address], [place], [address], [facility] 5 08:52:45 Problem Notes None recorded. Procedures Surgical History Date Name Laterality Status Provider Name and Address Organization Details Recorded Time Cerumen removal without microscope bilat completed SHERI SHOOK [address] [facility],[address], [address], [facility] 04/26/2025 13:55:20 FOL_normal_DHL completed Preet Gil DO [address] [facility],[address], [address], [place] - [facility] 02/11/2025 10:15:38 5 Comp Audio with Tymps - 22351 & 63905 completed JOHNATHON POZO, AUD [address] [facility],[address], [place], [address], [place] - [facility] 10/23/2024 13:25:16 5 Cerumen removal without microscope left completed WENDY PATEL PA-C [address] [facility] [address], [place], [address], [facility] - [facility] 10/23/2024 15:21:03 5 Cerumen removal with microscope bilateral completed WENDY PATEL PA-C [address] [facility] [address], [place], [address], [facility] - [facility] 10/08/2024 10:40:11 Imaging Results None recorded. Procedure Notes None recorded. Medical Equipment None Reported. Allergies Allergen ID Allergen Name Allergen Category Reaction Reaction Severity Criticality Documentation Date Start Date Code Code System Note Provider Name and Address Organization Details Recorded Time 101706 ibuprofen medicatio n Not available Not available [...] Updated DateTime 02/11/2025 162.56 cm 36.9 kg/m2 19640.36 g Jose Garcia [place] - [facility] 02/11/2025 09:31:06 Social History Question Answer Notes LastModified by Organizat ion Details LastModified Time Tobacco Smoking Status Never Smoker Kim boyle [place] - [facility] 10/08/2024 10:14:11 What Type Of Bioinformatics Support Specialist Do You Use? None [email or web address] Information not available 10/08/2024 Do You Have Any Pets? No [email or web address] Information not available 10/08/2024 Are You Passively Exposed To Smoke? No [email or web address] Information not available 10/08/2024 Are There Any Smokers In Your House? No Information not available 10/08/2024 Sex: Unknown Functional Status Question Answer Note LastModified by Organization Details LastModified Time Do you use any illicit or recreational drugs? No [email or web address] Information not available 10/08/2024 Do you or have you ever used any other forms of tobacco or nicotine? No Information not available 10/08/2024 What is your level of alcohol consumption? None [email or web address] Information not available 10/08/2024 What is your [...] Disorder N Anesthesia Complications N Heart Attack (NE) N Other Skin Condition N Diabetes Y [...] ICD10 Code Diagnosis IMO Codes Diagnosis Note [id number] Preet Gil, DO [facility] [address] [address] 02/11/2025 09:25:36 02/11/2025 10:16:12 Sensorineural hearing loss of bilateral ears 024418519 H90.3 78325768 Impacted c erumen in left ear 5997179270 266835 H61.22 8158950 Mass of tongue 763389488 K14.8 5394298 6 mm base of tongue Health Concerns Section Related Observation LastModified by Organization Detai ls LastModified Time None Recorded Concern Status LastModified by Organization Details LastModified Time None Recorded Payers Encounter Date Sequence Insurance Name Policy Number Policy Reynaga Covered Member ID Reynaga Member ID Guarantor Name 02/11/2025 1 [facility] [id number] Armen Olson [id number] Armen Olson Notes Date Note Type Note [...] Occasional Q tip use. He works at [employer]. Preet Gil, [address] [facility],[place] [address], [place], [address], [facility] - [facility] 02/11/2025 10:17:28
== END 2025-04-29 16:54 | disposition home or self-care (01) ==
LOC: HO.ACS 16:32
PROVIDERS: PCP Internal Medicine; Visit Provider Internal Medicine Medical Oncology
DX: Z79.01 Long term (current) use of anticoagulants (principal)

== ENCOUNTER → 2025-04-29 16:32 | Outpatient (BNVA) | payer OTHER, SELFPAY | PROVIDERS: PCP Internal Medicine; Visit Provider Internal Medicine Medical Oncology | DX: Z95.2 Presence of prosthetic heart valve (principal); Z79.01 Long term (current) use of anticoagulants; Z51.81 Encounter for therapeutic drug level monitoring | CPT/HCPCS: 85610; 99211 ==

== ENCOUNTER 2025-05-03 15:09 | Outpatient (AMB) | payer OTHER, SELFPAY ==
--- OUTSIDE RECORDS SUMMARY | 2024-11-02 02:15 | XMS_ITS ---
Author Organization Lennox Tsang MD Address [address] [place], [place] [phone] Care Team Providers Care Bilingual Sales Consultant Name Role Phone Lennox Tsang Primary Care Provider [phone] Results Component Value Reference Range Notes Liver Panel Reviewed date:11/02/2024 12:41:22 PM Interpretation: Performing Lab:[facility], [address] [place] [phone] Notes/Report: Bilirubin Total 0.6 0.0-1.0 mg/dL Bilirubin Direct 0.2 0.0-0.5 mg/dL Aspartate Amino Transferase 45 5-37 U/L Slight Hemolysis.Interpret result with caution. Alanine Aminotransferase 31 0-40 U/L Total Protein 8.1 6.5-8.0 g/dL Albumin Level 4.9 3.5-5.0 g/dL Alkaline Phosphatase 85 39-117 U/L Lipid Panel with Reflex Reviewed date:11/02/2024 12:41:04 PM Interpretation: Performing Lab:[facility], [address] [place] [phone] Notes/Report: Triglycerides 176 <150 mg/dL Desirable Triglyceride: [...] Location Date Provider Diagnosis Lennox Tsang MD [address] [place] [address] [place] [phone] 11/02/2024 Lennox Tsang Hypercholesteremia E 78.00 Assessments Encounter Date Diagnosis (ICD Code) Assessment Notes Treatment Notes Treatment Clinical Notes Section Notes 11/02/2024 Hypercholesteremia (ICD-10 - E78.00) Plan Of Treatment Next Appt Details Provider Name:Lennox white, 10/28/2025 07:30:00 AM, [address] [place] [address], [address], [phone], Provider Name:Lennox white, 11/04/2025 03:00:00 PM, [address] [place] [address], [address], [phone], Provider Name:Lennox white, 04/28/2026 07:15:00 AM, [address] [place] [address], [address], [phone], Provider Name:Lennox white, 05/05/2026 03:15:00 PM, [address] [place] [address], [address], [phone], Progress Notes * Ian HANOB:1975 (50 yo M)Acc No.[id number]:11/02/2024 Progress Note Patient: Armen HAWKINS Provider: Remy Tsang MD :1975 A ge:49 Y S ex:Male Date:11/02/2024 Address:[address] [place], [place] [phone] Subjective: * Chief Complaints: * 1 . [...] 11/02/2024 Generated for Gabriela velazquez/Sarah/Annabellaitting on: 1 07/04/2024 08:09 PM EST
--- OUTSIDE RECORDS SUMMARY | 2025-01-01 09:51 | XMS_ITS ---
Author Organization Lennox Tsang MD Address [address] [place] [address] [place] [phone] Care Team Providers Care Field Support Rep Name Role Phone Lennox Tsang Primary Care Provider [phone] REASON FOR VISIT Appointments Encounters Encounter Location Date Provider Diagnosis Lennox Tsang MD [address] [place] [address] [place] [phone] 01/01/2025 Lennox Tsang Plan Of Treatment Next Appt Details Provider Name:Lennox white, 10/28/2025 07:30:00 AM, [address] [place] [address], [address], [phone], Provider Name:Lennox white, 11/04/2025 03:00:00 PM, [address] [place] [address], [address], [phone], Provider Name:Lennox white, 04/28/2026 07:15:00 AM, [address] [place] [address], [phone], Provider Name:Lennox white, 05/05/2026 03:15:00 PM, [address] [place] [address], [phone], Progress Notes * Ian HANOB:1975 (49 yo M)Acc No.[id number]:01/01/2025 Patient: Armen HAWKINS :1975 A ge:49 Y S ex:Male Address:[address] [place] [address], [place] [address] * true * Date: Generated for Gabriela velazquez/Sarah/Mariaelenasmitting on: 07/04/2024 08:09 PM EST
--- OUTSIDE RECORDS SUMMARY | 2025-01-28 04:33 | XMS_ITS ---
Author Organization Lennox Tsang MD Address [address] [place] [phone] Care Team Providers Care Sound Truck Operator Name Role Phone Lennox Tsang Primary [...] Date Provider Diagnosis Lennox Tsang MD [address] [place] [address] [place] [phone] 01/28/2025 Lennox Tsang Hypercholesteremia E 78.00 Assessments [...] Details Provider Name:Lennox white, 10/28/2025 07:30:00 AM, [address] [place] [address], [address], [phone], Provider Name:Lennox white, 11/04/2025 03:00:00 PM, [address] [place] [address], [address], [phone], Provider Name:Lennox Reyes ier, 04/28/2026 07:15:00 AM, [address], [address], [place], [phone], Provider Name:Lennox Reyes ier, 05/05/2026 03:15:00 PM, [address] [facility], [address], [place], [phone], Progress Notes * Ian HANOB:1975 (49 yo M)Acc No.[id number]:01/28/2025 Patient: Rob Armen CURRIE :1975 A ge:49 Y S ex:Male Address:[address] [place] [address] * Refills Refill Atorvastatin Calcium Tablet, 20 MG, Orally, 90 Tablet, 1 tablet, Once a day, 90 days, Refills=3 Refill Warfarin Sodium Tablet, 5 MG, Orally, 180 Tablet, 2 tabs, Once a day, 90 days, Refills=4 * true * Date: Generated for Gabriela velazquez/Sarah/Nahid on: 07/04/2024 08:10 PM EST
--- OUTSIDE RECORDS SUMMARY | 2025-01-28 04:36 | XMS_ITS ---
Author Organization Lennox Tsang MD Address [address] [place] [address] [place] [address] [phone] Care Team Providers Care Phonograph Cartridge Assembler Name Role Phone Lennox Tsang Primary Care Provider REASON FOR VISIT Refill Request Encounters Encounter Location Date Provider Diagnosis Lennox Tsang MD [address] [place] [address] [place] [address] [phone] 01/28/2025 Lennox Tsang Plan Of Treatment Next Appt Details Provider Name:Lennox white, 10/28/2025 07:30:00 AM, [address] [place] [address], [address] [place] [address], [phone], Provider Name:Lennox white, 11/04/2025 03:00:00 PM, [address] [place] [address], [address], [phone], Provider Name:Lennox drummondr, 04/28/2026 07:15:00 AM, [address] [place] [address], [address], [phone], Provider Name:Lennox white, 05/05/2026 03:15:00 PM, [address] [place] [address], [address], [phone], Progress Notes * Steve HAN:1975 (49 yo M)Acc No.[id number]:01/28/2025 Patient: Armen HAWKINS :1975 A ge:49 Y S ex:Male Address:[address] [place] [phone] * true * Date: Generated for Gabriela velazquez/Sarah/Mariaelenasmitting on: 07/04/2024 08:08 PM EST
--- OUTSIDE RECORDS SUMMARY | 2025-02-06 23:45 | XMS_ITS ---
Author Organization Lennox Tsang MD Address [address] [place] [address] [place] [phone] Care Team Providers Care Scientific Systems Analyst Name Role Phone Lennox Tsang Primary Care Provider [phone] REASON FOR VISIT 6 MO F/U Encounters Encounter Location Date Provider Diagnosis Lennox Tsang MD [address] [place] [address] [place] [phone] 02/07/2025 Lennox Tsang Plan Of Treatment Next Appt Details Provider Name:Lennox white, 10/28/2025 07:30:00 AM, [address] [place] [address], [address] [place] [address], [phone], Provider Name:Lennox white, 11/04/2025 03:00:00 PM, [address] [place] [address], [address], [phone], Provider Name:Lennox Reyes ier, 04/28/2026 07:15:00 AM, [address] [place] [address], [address], [phone], Provider Name:Lennox white, 05/05/2026 03:15:00 PM, [address] [place] [address], [address], [phone], Progress Notes * Steve HAN:1975 (50 yo M)Acc No.[id number]:02/07/2025 Progress Notes Patient: Armen HAWKINS Provider: Remy Tsang MD :1975 A ge:50 Y S ex:Male Date:02/07/2025 Address:[address] [place], [place] [phone] Subjective: * Chief Complaints: * 1 . 6 MO F/U. * Medical History: Objective: * Vitals: Assessment: Plan: * Treatment: * * The named appointment provid er may or may not be the originator of this progress note, and it is not deemed complete until electronically signed by the appointment provider. Sign off status: Pending * Provider: Remy Tsang MD Date: 0 02/07/2025 Generated for Gabriela velazquez/Sarah/Annabellaitting on: 1 07/04/2024 08:10 PM EST
--- OUTSIDE RECORDS SUMMARY | 2025-03-22 02:48 | XMS_ITS ---
Author Organization Lennox Tsang MD Address [address] [facility] [address] [place] [phone] Care Team Providers Care Emergency Generator Mechanic Name Role Phone Lennox Tsang Primary Care Provider [phone] REASON FOR VISIT Metformin Medications Medication SIG (Take, Route, Fr equency, Duration) Notes Start Date End Date Status metFORMIN HCl 500 MG 2tablet with a meal Orally twice a day for 90 days Active Encounters Encounter Location Date Provider Diagnosis Lennox Tsang MD [address] [place] [address] [address] [place] [phone] 03/22/2025 Lennox Tsang Plan Of Treatment Medication Medication Name Sig Start Date Stop Date Notes metFORMIN HCl 500 MG 2tablet with a meal Orally twice a day for 90 days Next Appt Details Provider Name:Lennox white, 10/28/2025 07:30:00 AM, [address] [place] [address], [address], [phone], Provider Name:Lennox white, 11/04/2025 03:00:00 PM, [address] [place] [address], [address], [phone], Provider Name:Lennox white, 04/28/2026 07:15:00 AM, [address] [place] [address], [address], [phone], Provider Name:Lennox white, 05/05/2026 03:15:00 PM, [address] [place] [address], [address], [place], [place], [phone], Progress Notes * Ian HANOB:1975 (50 yo M)Acc No.[id number]:03/22/2025 Patient: Armen HAWKINS :1975 A ge:50 Y S ex:Male Address:[address] [place] [address], [facility] [address], [place] [address] * Refills Refill metFORMIN HCl Tablet, 500 MG, Orally, 360 Tablet, 2tablet with a meal, twice a day, 90 days, Refills=3 * true * Date: Generated for Gabriela velazquez/Sarah/Annabellaitting on: 07/04/2024 08:10 PM EST
--- OUTSIDE RECORDS SUMMARY | 2025-04-24 09:00 | XMS_ITS ---
Author Organization Lennox Tsang MD Address [address] [place] [address] [place] [phone] Care Team Providers Care Echo Vascular Technologist Name Role Phone Lennox Tsang Primary Care Provider REASON FOR VISIT Lab Work Encounters Encounter Location Date Provider Diagnosis Lennox Tsang MD [address] [place] [address] [place] [phone] 04/24/2025 Lennox Tsang Plan Of Treatment Next Appt Details Provider Name:Lennox white, 10/28/2025 07:30:00 AM, [address] [place] [address], [address] [place] [address], [phone], Provider Name:Lennox white, 11/04/2025 03:00:00 PM, [address] [place] [address], [address], [phone], Provider Name:Lennox white, 04/28/2026 07:15:00 AM, [address] [place] [address], [address], [phone], Provider Name:Lennox white, 05/05/2026 03:15:00 PM, [address] [place] [address], [address], [phone], Progress Notes * Ian HANOB:1975 (50 yo M)Acc No.[id number]:04/24/2025 Patient: Amren HAWKINS :1975 A ge:50 Y S ex:Male Address:[address] [place] [address] * true * Date: Generated for Gabriela velazquez/Sarah/Mariaelenasmitting on: 07/04/2024 08:10 PM EST
--- OUTSIDE RECORDS SUMMARY | 2025-04-26 02:00 | XMS_ITS ---
Author Organization Lennox Tsang MD Address [address] [place], [place] [phone] Care Team Providers Care Diesel Retrofit Designer Name Role Phone Lennox Tsang Primary Care Provider [phone] Results Component Value Reference Range Notes Complete Blood Count Auto Di ff Reviewed date:04/26/2025 06:43:11 PM Interpretation: Performing Lab:[facility], [address] [place] [phone] Notes/Report: White Blood Count 11.8 4.8-10.8 X10*3/uL [...] NRBC Abs Auto 0.000 0.0-0.012 X10*3/uL Comprehensive [place]. Panel Fa st Reviewed date:04/26/2025 06:37:41 PM Interpretation: Performing Lab:[address] [phone] Notes/Report: Sodium 137 135-145 mmol/L Potassium 4.4 [...] Panel Reviewed date:04/26/2025 12:24:43 PM Interpretation: Performing Lab:[facility], [address] [place] [phone] Notes/Report: Triglycerides 285 <150 mg/dL Slight Lipemia. [...] (Free>4and<10) Reviewed date:04/26/2025 06:37:49 PM Interpretation: Performing Lab:[facility], [address] [place] [phone] Notes/Report: PSA,Total (Free>4and<10) 0.31 0.00-4.00 ng/mL A [...] Random Reviewed date:04/26/2025 12:37:54 PM Interpretation: Performing Lab:[facility], [address] [place] [phone] Notes/Report: Creatinine Urine 160.53 Microalbumin Urine 58.0 Microalbum/Creatinine Ratio Ur 36.1 <30 ug/mg cr Albumin/Creatinine Ratio Reference Ranges: Normal: < 30 ug/mg creatinine Microalbuminuria: 30 - 300 ug/mg creatinine Clinical Albuminuria: > 300 ug/mg creatinine Hemoglobin A1c Reviewed date:04/26/2025 12:14:03 PM Interpretation: Performing Lab:[facility], [address] [place] [phone] Notes/Report: Hemoglobin A1c % 6.7 <6.0 % [...] average glucose, using the formula of the C0M-[place] Average Glucose study (ADAG), Diabetes Care, Vol.31,#8, Dec. 2007 UA ClnCatch+Micro w/rflx Cul t Reviewed date:04/26/2025 12:25:03 PM Interpretation: Performing Lab:[facility], [address] [place] [phone] Notes/Report: Urine, Clean Catch Color Urine Yellow Appearance Urine Clear PH 5.5 5.0-9.0 Glucose Urine UA Negative Negative mg/dL Urine Blood Negative Negative Specific [place] - Urine 1.015 1.005-1.025 Urine Protein Trace [...] Location Date Provider Diagnosis Lennox Tsang MD [address] [place] [address] Drive [address] [place], [place] [phone] 04/26/2025 Lennox Tsang Blood tests for rout [...] Provider Name:Lennox Reyes ier, 10/28/2025 07:30:00 AM, [address] [place] [address], [address] [facility], [place], [place], [phone], Provider Name:Lennox Reyes ier, 11/04/2025 03:00:00 PM, [address] [place] [address], [address] [facility], [place], [place], [phone], Provider Name:Lennox Reyes ier, 04/28/2026 07:15:00 AM, [address] [place] [address], [address] [facility], [place], [place], [phone], Provider Name:Lennox Reyes ier, 05/05/2026 03:15:00 PM, [address] [place] [address], [address] [facility], [place], [place], [phone], Progress Notes * Magen HANJenOB:1975 (50 yo M)Acc No.[id number]:04/26/2025 Progress Note Patient: Armen HAWKINS Provider: Remy Tsang MD :1975 A ge:50 Y S ex:Male Date:04/26/2025 Address:[address] [place], [place] [phone] Subjective: * Chief Complaints: * 1 . [...] - 04/26/2025 07:00 AM) L AB: Comprehensive [place]. Panel Fast (Collection Date & Time - [...] - 04/26/2025 07:00 AM) L AB: Comprehensive [place]. Panel Fast (Collection Date & Time - [...] - 04/26/2025 07:00 AM) L AB: Comprehensive [place]. Panel Fast (Collection Date & Time - [...] 1 06/27/2024 Generated for Gabriela velazquez/Sarah/Annabellaitting on: 07/04/2024 08:10 PM EST
--- OUTSIDE RECORDS SUMMARY | 2025-04-26 02:33 | XMS_ITS ---
Author Organization Lennox Tsang MD Address [address] [place] [address] [place] [phone] Care Team Providers Care Development Coordinator Name Role Phone Lennox Tsang Primary Care Provider [phone] REASON FOR VISIT RE:Lab Work Encounters Encounter Location Date Provider Diagnosis Lennox Tsang MD [address] [place] [address] [place] [phone] 04/26/2025 Lennox Tsang Plan Of Treatment Next Appt Details Provider Name:Lennox white, 10/28/2025 07:30:00 AM, [address] [place] [address], [address], [phone], Provider Name:Lennox white, 11/04/2025 03:00:00 PM, [address] [place] [address], [address], [phone], Provider Name:Lennox white, 04/28/2026 07:15:00 AM, [address] [place] [address], [address], [phone], Provider Name:Lennox white, 05/05/2026 03:15:00 PM, [address] [place] [address], [address], [phone], Progress Notes * Steve HAN:1975 (50 yo M)Acc No.[id number]:04/26/2025 Patient: Armen HAWKINS :1975 A ge:50 Y S ex:Male Address:[address] [place] [address] * true * Date: Generated for Gabriela velazquez/Sarah/Mariaelenasmitting on: 07/04/2024 08:08 PM EST
--- OUTSIDE RECORDS SUMMARY | 2025-05-01 23:59 | XMS_ITS | Continuity of Care Document ---
Author Organization [facility] Address [address] [place] [address]- Care Team Providers Care Project Manager Process Development Name Role Phone Lennox Tsang MD Primary Care Physician [phone] Encounter [facility] Date(s): 04/01/25 - 05/01/25 [facility] [address] [place], [place] [address] Attending Physician: Beka Acevedo Admitting Physician: AdmtrBeka Referring Physician: Admtr ArHui Encounter Type: Triage Allergies, Adverse Reactions, Alerts [...] Refills, Maintenance Start Date: 05/13/20 Status: Ordered Medication Dispense Status: Completed Total Allowed Fills: 1 Fills Dispensed: 0 Aldactone 100 mg oral tablet 100 mg, 1, tablet, By Mouth, 2 times a day, # 30 tablet, Refills 0, Maintenance, 04/08/25 10:58:00 AM EST, Partial fill upon patient request if the prescription is for a schedule II opioid drug. Start Date: 04/08/25 Status: Ordered Medication Dispense Status: Completed Quantity: 30.0 Unit: tablet Total Allowed Fills: 1 Fills Dispensed: 0 allopurinol 300 mg oral tablet 300 mg, 1, tablet, By Mouth, Daily, # 30 tablet, Refills 0, Maintenance, 05/27/22 7:03:00 PM EST, Partial fill upon patient request if the prescription is for a schedule II opioid drug. Start Date: 05/27/22 Status: Ordered Medication Dispense Status: Completed Quantity: 30.0 Unit: tablet Total Allowed Fills: 1 Fills Dispensed: 0 atorvastatin 20 mg oral tablet 1 tablet = 20 mg, By Mouth, Daily at supper, # 30 tablet, 0 Refills, Maintenance, 07/12/24 7:37:00 AM EST, Tablet, Partial fill upon patient request if the prescription is for a schedule II opioid drug. Start Date: 07/12/24 Status: Ordered Medication Dispense Status: Completed Quantity: 30.0 Unit: tablet Total Allowed Fills: 1 Fills Dispensed: 0 colchicine 0.6 mg oral capsule See Instructions, 2 capsules by mouth, then 1 capsule by mouth 1 hour later, # 3 capsule, 0 Refills, Maintenance, 05/14/20 9:28:00 AM EST, [facility]/pharmacy #[id number], Partial fill upon patient request if theprescription is for a schedule II opioid drug., 163, cm, 05/13/20 18:15:00 EST, Height, 106.7, kg, 05/13/20 18:15:00 EST, Dry Weight Start Date: 05/14/20 Status: Ordered Medication Dispense Status: Completed Quantity: 3.0 Unit: capsule Total Allowed Fills: 1 Fills Dispensed: 0 Lovenox 100 mg/mL injectable solution = 100 mg, Subcutaneous Injection, Every 12 hours, PRN if INR <2., *Note: Treatment = 1.5mg/kg/day, renal dosing = 1mg/kg/day*, # 7 each, 0 Refills, Maintenance, 04/08/25 10:49:00 AM EST, Partial fill upon patient request if the prescription is for a schedule II opioid drug. Start Date: 04/08/25 Status: Ordered Medication Dispense Status: Completed Quantity: 7.0 Unit: each Total Allowed Fills: 1 Fills Dispensed: 0 Metformin = 1,000 mg, By Mouth, 2 times a day, 0 Refills, Maintenance, 04/08/25 10:58:00 AM EST, Partial fillupon patient request if the prescription is for a schedule II opioid drug. Start Date: 04/08/25 Status: Ordered Medication Dispense Status: Completed Total Allowed Fills: 1 Fills Dispensed: 0 metolazone 2.5 mg oral tablet 2.5 mg, 1, tablet, By Mouth, Every Tuesday and , # 30 tablet, Refills 0, Tot. Refills 0, Maintenance, 06/03/22 3:28:00 PM EST, Route to Pharmacy Electronically, [facility], Partial fill upon patient request if the prescription is for a schedule II opioid drug., 163, cm, 06/03/2313:57:00 EST, Height, 112.7, kg, 05/27/22 19:38:00 EST, Dry Weight Start Date: 06/03/22 Status: Ordered Medication Dispense Status: Completed Quantity: 30.0 Unit: tablet Total Allowed Fills: 1 Fills Dispensed: 0 metoprolol succinate 50 mg oral capsule, extended release 1 capsule = 50 mg, By Mouth, Daily, # 30 capsule, 0 Refills, Maintenance, 04/03/20 3:12:00 PM EST, ER Capsule, [facility] 3, Partial fill upon patient request, 163, cm, 04/03/20 11:45:00 EST, Height, 108, kg, 04/02/20 20:37:00 EST, Dry Weight Start Date: 04/03/20 Status: Ordered Medication Dispense Status: Completed Quantity: 30.0 Unit: capsule Total Allowed Fills: 1 Fills Dispensed: 0 torsemide = 40 mg, By Mouth, Daily, 0 Refills, Maintenance, 04/08/25 10:59:00 AM EST, Partial fill upon patient request if the prescription is for a schedule II opioid drug. Start Date: 04/08/25 Status: Ordered Medication Dispense Status: Completed Total Allowed Fills: 1 Fills Dispensed: 0 Vitamin D3 1000 intl units oral capsule 1 capsule = 25 mcg, By Mouth, Daily, 0 Refills, Maintenance, 04/08/25 10:49:00 AM EST, Partial fillupon patient request if the prescription is for a schedule II opioid drug. Start Date: 04/08/25 Status: Ordered Medication Dispense Status: Completed Total Allowed Fills: 1 Fills Dispensed: 0 warfarin 5 mg oral tablet See Instructions, 10 mg by mouth every mon, wed, fri. 7.5 mg by mouth on other days (Sun, Tu, Th, Sat), 0 Refills, Maintenance, 05/27/22 7:42:00 PM EST, Tablet, Partial fill upon patient request if the prescription is for a schedule II opioid drug. Start Date: 05/27/22 Status: Ordered Medication Dispense Status: Completed Total Allowed Fills: 1 Fills Dispensed: 0 Problem List Condition Confirmation Course Effective Dates Status Health St atus Informant Congenital subaortic stenosis Confirmed Active S/p AVR Confirmed Active Obese class II Confirmed Active Social History Social History Type Response Smoking Status Never (less than 100 in lifetime) entered on: 04/01/25 Sexual Orientation Self described orien tation: ; Straight or heterosexual Sex Male Sex Representation Male (finding) Patient Care team information Care Team Personnel Name: Lennox Tsang MD Position: Reference Physician Member Role: PCP Address: [address] [place] [address] Lennox Tsang [place], [place] [address] Telecom: [phone] Name: Preet Valenzuela DO Position: [facility] Renal MD Member Role: Lifetime Consulting Physician Address: [address] [place], [place] [address] [place], [place] [address] Telecom: Name: Mishel Hogan RN Position: [facility] RN Member Role: Primary Care Nurse Name: Becka Masters RN Position: [facility] Onco RN Member Role: Primary Care Nurse Name: Naya Willson RN Position: [facility] RN Member Role: Primary Care Nurse Care Team Related Persons Name: RUDDY HAN Name: PITER HAN Insurance Providers Guarantor name: SARINA EMELY Health Plan Information #: 1 Payer: [employer]ESS[employer] [facility] PPO Payer Identifier: [id number] Member Number: [id number] Group Number: [id number] Subscriber Identifier: NA Relationship to Subscriber: self Coverage Type: Other Private Insurance Coverage Verification Date: NA Telecom: NA Address:
--- OUTSIDE RECORDS SUMMARY | 2025-05-03 09:30 | XMS_ITS ---
Author Organization Lennox Tsang MD Address [address] [place], [place] [id number] Care Team Providers Care Composition Worker Name Role Phone Lennox Tsang Primary Care Provider Allergies Allergen (clinical drug ingredient) Drug/Non Drug Allergy documented on EMR Reaction Allergy Type Onset Date Status ibuprofen Ibuprofen bleeding Drug Allergy Active Results Component Value Reference Range Notes Occult Blood, Stool, Guaiac Reviewed date:05/03/2025 03:26:51 PM Interpretation:Negative Performing Lab: Notes/Report: Negative Occult Blood, Stool, Guaiac Neg REASON FOR VISIT ANNUAL EXAM Medications Medication SIG (Take, Route, Frequency, Duration) Notes Start Date End Date Status Allopurinol 300 MG TAKE ONE TABLET BY MOUTH ONCE DAILY for 90 Active Diprolene AF 0.05 % 1 application Externally Once a day for 90 days 04/14/2020 Active Celecoxib 200 MG 1 capsule with food Orally Once a day for 90 days Not-Taking Warfarin Sodium 5 MG 2 tabs Orally Once a day for 90 days Active metFORMIN HCl 500 MG 2tablet with a meal Orally twice a day Active Torsemide 20 MG 2 tabs Q AM Orally Active Spironolactone 100 MG 1 tablet Orally BID Active Albuterol Sulfate HFA 108 (90 Base) MCG/ACT 1 puff as needed Inhalation every 4 hrs for 30 days 05/06/2020 Active Atorvastatin Calcium 20 MG 1 tablet Oral ly Once a day 04/30/2024 Active Metoprolol Succinate ER 50 MG 50mg Orally Once a day Activ e Colchicine 0.6 MG TAKE ONE TABLET TWO TIMES A DAY for 10 Active Social History Tobacco Use: Social History Observation [...] ast year? No Points 0 Interpretation Negative Vital Signs Blood pressure systolic 98 mm Hg 05/03/20 25 Blood pressure diastolic 70 mm Hg 025 Height 64 in 05/03/2025 Weight 215 lbs 05/03/2025 BMI 36.9 kg/m2 05/03/2025 weight is down 3 pounds [facility] e 08-06-24 Encounters Encounter Location Date Provider Diagnosis Lennox Tsang MD [address] [place] [address] [place] [phone] 05/03/2025 Lennox Tsang Type 2 diabetes jaylene itus without complication, without long-term current use of insulin E11.9 ; Adult general medical examination Z00.00 ; Fatty liver K76.0 ; Chronic systolic congestive heart failure I50.22 ; Hypercholesteremia E78.00 ; Colon cancer screening Z12.11 and Depression screen Z13.31 Assessments Encounter Date Diagnosis (ICD Code) Assessment Notes Treatment Notes Treatment Clinical Notes Section Notes 05/03/2025 Type 2 diabetes mellitus without complication, without long-term current use of insulin (ICD-10 - E11.9) doing well with good a1c, will continue current regiment 05/03/2025 Adult general medica l examination (ICD-10 - Z00.00) labs reviewed and discussed with patient 05/03/2025 Fatty liver (ICD-10 - K76.0) is on diet, will continue to monitor 05/03/2025 Chronic systolic congestive heart failure (ICD-10 - I50.22) stable on diuretics, will continue current regiment 05/03/2025 Hypercholesteremia (ICD-10 - E78.00) 05/03/2025 Colon cancer screeni ng (ICD-10 - Z12.11) guaiac negative 05/03/2025 Depression screen (ICD-10 - Z13.31) negative screen Plan Of Treatment Medication Medication Name Sig Start Date Stop Date Notes metFORMIN HCl 500 MG 2tablet with a meal Orally twice a day Torsemide 20 MG 2 tabs Q AM Orally Spironolactone 100 MG 1 tablet Orally BID Atorvastatin Calcium 20 MG 1 tablet Orally Once a day 01/2024 Metoprolol Succinate ER 50 MG 50mg Orally Once a day Treatment Notes Assessment Notes Type 2 diabetes mellitus wit hout complication, without long-term current use of insulin doing well with good a1c, will continue current regiment Adult general medical examination labs r eviewed and discussed with patient Fatty liver is on diet, will con tinue to monitor Chronic systolic congestive heart failur e stable on diuretics, will continue current regiment Colon cancer screening guaiac negative Depression screen negative screen Next Appt Details Follow Up: 6 Months, Reason: Provider Name:Lennox white, 10/28/2025 07:30:00 AM, [address] [place] [address], [address], [phone], Provider Name:Lennox white, 11/04/2025 03:00:00 PM, [address] [place] [address], [address], [phone], Provider Name:Lennox drummondr, 04/28/2026 07:15:00 AM, [address] [place] [address], [address], [phone], Provider Name:Lennox white, 05/05/2026 03:15:00 PM, [address] [place] [address], [address], [phone], Progress Notes * EMELY IanOB:1975 (50 yo M)Acc No.[id number]:05/03/2025 Progress Notes Patient: Armen HAWKINS Provider: Remy Tsang MD :1975 A ge:50 Y S ex:Male Date:05/03/2025 Address:[address] [place], [place] [phone] Subjective: * Chief Complaints: * 1 . ANNUAL EXAM. * HPI: D epression Screening: PHQ-9 L ittle interest or pleasure in doing things N ot at all, F eeling down, depressed, or hopeless N ot at all, T rouble falling or staying asleep, or sleeping too much N ot at all, F eeling tired or having little energy N ot at all, P oor appetite or overeating N ot at all, F eeling bad about yourself or that you are a failure, or have let yourself or your family down N ot at all, T rouble concentrating on things, such as reading the newspaper or watching television N ot at all, M oving or speaking so slowly that other people could have noticed; or the opposite, being so fidgety or restless that you have been moving around a lot more than usual N ot at all, T houghts that you would be better off or of hurting yourself in some way N ot at all, T otal Score 0 . I nterpretation and Intervention D epression Screening Findings N egative, F ollow-Up for Depression : review of PHQ-9 found negative result, no follow-up needed. C ommunication Needs: Communication Needs D oes the patient have a hearing impairment N o, D oes the patient have a vision impairment? Y es, I f yes, what is the vision impairment? G lasses, D oes the patient have a cognition impairment? N o. F all Risk: History H ave you had any falls with injury in the past year? N o, H ave you had two or more falls in the past year? N o. S GERMANIA Questions: SDOH Questions I n the past year have you been worried about losing housing? N o, I n the past year have you or any family members you live with been unable to get any of the following when it was really needed? Check all that apply: N one. S ymptom(s): patient is a 50 yo male here for annual visit with review of recent labs and follow up of chronic issues. * ROS: G eneral/Constitutional: Change in appetite d enies. C hills d enies. F ever d enies. O phthalmologic: Blurred vision d enies. D ischarge d enies. P ain d enies. E NT: Decreased hearing d enies. S ore throat d enies.?Swollen glands d enies. E ndocrine: Cold intolerance d enies. E xcessive thirst d enies. H eat intolerance d enies. W eight loss d enies. R espiratory: Cough d enies. S hortness of breath at rest d enies. S hortness of breath with exertion d enies. W heezing d enies. C ardiovascular: Chest pain at rest d enies. C hest pain with exertion?denies. I rregular heartbeat d enies. S hortness of breath d enies. ? G astrointestinal: Abdominal pain d enies. C hange in bowel habits d enies. D iarrhea d enies. N ausea d enies. R ectal bleeding d enies. V omiting d enies . G enitourinary: Blood in urine d enies. D ifficulty urinating d enies. F requent urination d enies. M usculoskeletal: Painful joints d enies. W eakness d enies. ? S kin: Dry skin d enies. I tching d enies. D enies?Mole(s), changes in moles, new moles or any lesions of concern. D enies P hotosensitivity. R luba d enies. N eurologic: Dizziness d enies. F ainting d enies. H eadache?denies. * Medical History: H x of Umbilical Hernia, Discussed colonoscopy and he wants to wait: 11/24/22 colonoscopy tubular adenoma. repeat in 5 years, Prediabetes, Lovenox dose is 100 units twice a day. * Family History: F ather: alive 67 yrs. M other: alive 66 yrs, family history unknown . 2 brother(s) . . Father- hypercholesterolemia, Denies mental health/substance abuse family history, No pertinent family medical history, No pertinent family medical history, Denies mental health/substance abuse family history, No pertinent family medical history, Denies mental health/substance abuse family history. * Social History: T obacco Use: T obacco Use/Smoking P atient is a n onsmoker, A dditional Findings: Tobacco Non-User C urrent non-smoker, currently using no form of tobacco. D rugs/Alcohol: A lcohol Screen D id you have a drink containing alcohol in the past year? N o, P oints 0 , I nterpretation N egative. M iscellaneous: C affeine: yes, infrequent but on average 1-2 a day. Children: no. Community involvements: no. Exercise: yes, Gym cardio and weights. Home smoke detector use: yes. Housing: owning. Marital status: single. Occupation: works full-time. Pets: none. * Medications: T aking Diprolene AF 0.05 % Cream 1 application Externally Once a day , Taking Colchicine 0.6 MG Tablet TAKE ONE TABLET TWO TIMES A DAY , Taking Albuterol Sulfate HFA 108 (90 Base) MCG/ACT Aerosol Solution 1 puff as needed Inhalation every 4 hrs , Taking Spironolactone 100 MG Tablet 1 tablet Orally BID , Taking Torsemide 20 MG Tablet 2 tabs Q AM Orally , Taking Metoprolol Succinate ER 50 MG Tablet Extended Release 24 Hour 50mg Orally Once a day , Taking Allopurinol 300 MG Tablet TAKE ONE TABLET BY MOUTH ONCE DAILY , Taking Atorvastatin Calcium 20 MG Tablet 1 tablet Orally Once a day , Taking Warfarin Sodium 5 MG Tablet 2 tabs Orally Once a day , Taking metFORMIN HCl 500 MG Tablet 2tablet with a meal Orally twice a day , Not- Taking/PRN Celecoxib 200 MG Capsule 1 capsule with food Orally Once a day , Medication List reviewed and reconciled with the patient * Allergies: I buprofen: bleeding. Objective: * Vitals: H t: 64, Wt: 215, BMI:36.9, BP:98/70, Wt-k.52. weight is down 3 pounds since 08-06-24. * P ast Orders: L ab:Hemoglobin A1c (Order Date - 04/26/2025) (Collection Date & Time - 04/26/2025 07:00 AM) Value Reference Range Hemoglobin A1c % 6.7 H <6.0 - % Estimated Average Glucose 146 - mg/dL L ab:Complete Blood Count Auto Diff (Order Date - 04/26/2025) (Collection Date & Time - 04/26/2025 07:00 AM) Value Reference Range White Blood Count 11.8 H 4.8-10.8 - X10*3/uL Red Blood Count 4.28 L 4.60-5.80 - X10*6/uL Hemoglobin 12.4 L 14.0-18.0 - g/dl Hematocrit 37.9 L 42.0-52.0 - % Mean Corpuscular Volume 88.6 80.0-98.0 - fL Mean Corpuscular Hemoglobin 29.0 27.0-33.0 - pg Mean Corpuscular HGB Conc 32.7 31.0-36.0 - g/ dl Red Cell Distribution Width 14.5 11.0-16.0 - % Platelet Count 290 160-400 - X10*3/uL Mean Platelet Volume 11.0 9.4-12.4 - fL Neutrophils Percent Auto 73.7 H 45-73 - % Imm Gran Pct Auto 2.3 H 0.0-0.4 - % Lymphocytes Percent Auto 13.2 L 20-40 - % Monocytes Percent Auto 7.0 2-11 - % Eosinophils Percent Auto 3.1 0-4 - % Basophils Percent Auto 0.7 0-2 - % NRBC Pct Auto 0.0 0.0-0.2 - /100WBC Neutrophils Absolute Auto 8.7 H 2.0-8.3 - x10* 3/uL Imm Gran Abs Auto 0.27 H 0.00-0.03 - X10*3/uL Lymphocytes Absolute Auto 1.6 1.2-4.9 - X10* 3/uL Monocytes Absolute Auto 0.8 0.1-1.2 - X10*3/ uL Eosinophils Absolute Auto 0.4 0.0-0.4 - X10* 3/uL Basophils Absolute Auto 0.1 0.0-0.2 - X10*3/ uL NRBC Abs Auto 0.000 0.0-0.012 - X10*3/uL L ab:UA ClnCatch+Micro w/rflx Cult (Order Date - 04/26/2025) (Collection Date & Time - 04/26/2025 07:00 AM) Value Reference Range Color Urine Yellow - Appearance Urine Clear - PH 5.5 5.0-9.0 - Glucose Urine UA Negative Negative - mg/dL Urine Blood Negative Negative - Specific [place] - Urine 1.015 1.005-1.025 - Urine Protein Trace Neg-Trace - mg/dL Urine Ketones Trace Negative - mg/dL Nitrite Urine Negative Negative - Leukocyte Esterase Urine Negative Negative - RBC Urine 0-2 0-2 - /HPF WBC Urine 0-5 0-5 - /HPF Squamous Epithelial Cell Urine 0-2 0-2 - /HP F Bacteria Urine None Seen None Seen - Hyaline Casts Urine 3-5 0-2 - /LPF L ab:Comprehensive [place]. Panel Fast (Order Date - 04/26/2025) (Collection Date & Time - 04/26/2025 07:00 AM) Value Reference Range Sodium 137 135-145 - mmol/L Bilirubin Total 0.2 0.0-1.0 - mg/dL Aspartate Amino Transferase 44 H 5-37 - U/L Alanine Aminotransferase 34 0-40 - U/L Total Protein 8.0 6.5-8.0 - g/dL Albumin Level 4.9 3.5-5.0 - g/dL Alkaline Phosphatase 88 39-117 - U/L Potassium 4.4 3.3-5.1 - mmol/L Chloride 99 96-108 - mmol/L Carbon Dioxide 26 22-29 - mmol/L Anion Gap 16 12-20 - Blood Urea Nitrogen 23 H 9-16 - mg/dL Creatinine 1.40 0.5-1.4 - mg/dL Estimated Glomerular Filt Rate 54 - Glucose Fasting 124 H 60-99 - mg/dL Calcium 9.9 8.4-10.2 - mg/dL L ab:Lipid Panel (Order Date - 04/26/2025) (Collection Date & Time - 04/26/2025 07:00 AM) Value Reference Range Triglycerides 285 H <150 - mg/dL Cholesterol 172 <200 - mg/dL LDL Cholesterol Calculated 78 <100 - mg/dL HDL Cholesterol 37 L >40 - mg/dL L ab:PSA,Total (Free>4and<10) (Order Date - 04/26/2025) (Collection Date & Time - 04/26/2025 07:00 AM) Value Reference Range PSA,Total (Free>4and<10) 0.31 0.00-4.00 - ng/ mL L ab:Microalbumin, Random (Order Date - 04/26/2025) (Collection Date & Time - 04/26/2025 07:00 AM) Value Reference Range Creatinine Urine 160.53 - mg/dL Microalbumin Urine 58.0 - mg/L Microalbum Creatinine Ratio Ur 36.1 H <30 - ug/ mg cr * Examination: G eneral Examination: GENERAL APPEARANCE: w ell developed, well nourished, in no acute distress. HEAD: n ormocephalic, atraumatic. EYES: p upils equal, round, reactive to light and accommodation, sclera non-icteric. EARS: n ormal. ORAL CAVITY: m ucosa moist. THROAT: c lear. NECK/THYROID: n susana supple, full range of motion, no cervical lymphadenopathy, no bruits. SKIN: w arm and dry, no suspicious lesions. HEART: r egular rate and rhythm, S1, S2 normal, no murmurs.? LUNGS: c lear to auscultation bilaterally. ABDOMEN: s oft, nontender, nondistended, bowel sounds present, normal, no organomegaly , no masses palpable. RECTAL EXAM: n ormal tone, no external hemorrhoids, no masses palpable, prostate normal, stool guaiac negative. MALE GENITOURINARY: c ircumcised, no penile lesions or discharge, no testicular mass, testes descended bilaterally. EXTREMITIES: n o clubbing, cyanosis, or edema. NEUROLOGIC: n onfocal, motor strength normal upper and lower extremities, sensory exam intact. Assessment: * Assessment: 1. A dult general medical examination - Z00.00 (Primary) 2 . T ype 2 diabetes mellitus without complication, without long-term current use of insulin - E11.9 3 . F atty liver - K76.0 4 . C hronic systolic congestive heart failure - I50.22 5 . H ypercholesteremia - E78.00 6 . C olon cancer screening - Z12.11 7 . D epression screen - Z13.31 Plan: * Treatment: 2. T ype 2 diabetes mellitus without complication, without long-term current use of insulin Continue metFORMIN HCl Tablet, 500 MG, 2tablet with a meal, Orally, twice a day. Notes: doing well with good a1c, will continue current regiment 3. F atty liver Notes: is on diet, will continue to monitor 4. C hronic systolic congestive heart failure Continue Spironolactone Tablet, 100 MG, 1 tablet, Orally, BID; C ontinue Torsemide Tablet, 20 MG, 2 tabs Q AM, Orally; C ontinue Metoprolol Succinate ER Tablet Extended Release 24 Hour, 50 MG, 50mg, Orally, Once a day. Notes: stable on diuretics, will continue current regiment 5. H ypercholesteremia Continue Atorvastatin Calcium Tablet, 20 MG, 1 tablet, Orally, Once a day. 6. C olon cancer screening L AB: Occult Blood, Stool, Guaiac (Collection Date & Time - 05/03/2025) N egative Value Reference Range O ccult Blood, Stool, Guaiac Neg Notes: guaiac negative??7.?Depression screen? Notes: negative screen?? * Procedure Codes: 8 2270 TEST FOR BLOOD, FECES * Follow Up: 6 Months * * The named appointment provid er may or may not be the originator of this progress note, and it is not deemed complete until electronically signed by the appointment provider. Sign off status: Pending * Provider: Remy Tsang MD Date: 07/04/2024 Generated for Gabriela velazquez/Sarah/Nahid on: 07/04/2024 08:09 PM EST History and Physical Notes * HPI (History of Present Illness) Category Sub-Category Detail Notes Category Not es Symptom(s) patient is a 50 yo male here for annual visit with review of recent labs and follow up of chronic issues Depression Screening PHQ-9 Little inte rest or [...] really needed? Check all that apply:: None Fall Risk History Have you had any falls with injury i n the past year?: No Have you had two or more falls in the year?: No Communication Needs Communication Needs Does the patient have a hearing impairment: No Does the patient have a vision impairmen t?: Yes If yes, what is the vision impairment?: Glasses Does the patient have a cognition impair ment?: No Examination Category Sub-Category Detail Notes Category Not es General Examination GENERAL APPEARANCE: well dev eloped, well nourished, in no acute distress HEAD: normocephalic, atrau matic EYES: pupils equal, round, reactive to light and accommodation, sclera non-icteric EARS: normal THROAT: clear NECK/THYROID: neck supple, [...] clubbing, cyanosi s, or edema MALE GENITOURINARY: circumcised, no peni le lesions or discharge, no testicular mass, testes descended bilaterally RECTAL EXAM: normal tone, no exte rnal hemorrhoids, no masses palpable, prostate normal, stool guaiac negative ORAL CAVITY: mucosa moist
[2025-05-03 15:21] LABS: Prothrombin Time Whole Bld POC 31.8 sec (11.1-13.5); ~PT, ~INR - Anti Coag Clinic 2.7 (0.9-1.1)
--- NOTE | 2025-05-03 15:41 | MHC.OFFVISCO ---
Intake Intake Visit Reasons: Anticoagulation Allergies No Known Allergies Allergy (Verified 05/03/25 15:10) Medication List - Last Reconciled 05/03/25 by Jordyn Orona RN albuterol sulfate 90 mcg/actuation 0 mcg inhalation allopurinol 300 mg PO DAILY atorvastatin 20 mg PO QPM colchicine 0.6 mg PO BID PRN metformin ER 1,000 mg PO BID metolazone mg PO metoprolol succinate ER 50 mg PO DAILY spironolactone 100 mg PO BID torsemide 40 mg PO DAILY [VITAMIN D 3 PO] warfarin 5 mg See Protocol PO DAILY Nursing Note INR 2.7 in range 2.5-3.5 S/P parathyroid surgery 04/15/25 bruising clearing, no complications NO medication changes, diet has avoided greens will resume next week Dosinmg M-W-F/ 7.5 x 4 days follow up 05/20/25 Anti-Coag Initial Assessment Social Hx Patient Tobacco Use Status: Never used Tobacco Questionnaires HAS-BLED Does the patient had uncontrolled Hypertension?: No Does the patient have renal disease?: No Does the patient have liver disease?: No Does the patient have a history of stroke?: No Has the patient had major bleeding or predisposition to bleeding?: No Does the patient have labile INRs?: Yes Is the patient over 65 years of age?: No Is the patient on medications that gives them a predisposition to bleeding?: Yes Does the patient use alcohol?: No HAS-BLED Score: 2 CHADSVASC Age: <65 Gender: Male Does the patient have a history of CHF?: Yes Does the patient have a history of Hypertension?: Yes Does the patient have a history of Stroke/TIA/Thromboembolism?: No Does the patient have a history of Vascular Disease (prior UT, PAD or aortic plaque)?: Yes Does the patient have a history of Diabetes?: Yes CHADS VACS Score: 4 Veda Prediction Score Rsk VTE Active Cancer: No Previous VTE, excluding superficial vein thrombosis: No Reduced mobility: No Already known Thrombophilic Condition: No With-in last month Trauma and/or Surgery: Yes (04/15/25 Parathyroid) Elderly 70 year or older: No Heart and/or Respiratory Failure: Yes Acute Myocardial infarction and/or Ischemic Stroke: No Acute Infection and/or Rheumatologic Disorder: No Obesity (BMI 30 or greater): Yes Ongoing Hormonal Treatment: No Score: 4 Veda Score less than 4; Low Risk of VTE Veda Score 4 or greater; High Risk of VTE Coding Level of Care Code Established Pt Est Patient Level 1 Patient Type Established History Problem Focused Diagnoses Current use of anticoagulant therapy Z79.01 Assessment & Plan Assessment & Plan (1) Current use of anticoagulant therapy: Code(s): Z79.01 - halfway (current) use of anticoagulants Category: Medical
--- OUTSIDE RECORDS SUMMARY | 2025-05-03 20:09 | XMS_ITS | Continuity of Care Document ---
Author Organization [place] - [facility], [facility] Address [address] [place] [address] Care Team Providers Care Mold Injector Name Role Phone KHADIJAH GODWIN Primary Care Provider [phone] Assessment Encounter Date Assessment Date Assessment LastModified [...] Medication Orders mineral oil topical 2024 025 [facility] ([facility]), [address] [place] [address], [id number], 04/26/2025 13:35:22 Patient TargetsNo targets recorded. Patient InstructionsNo instructions recorded. Reason for Referral None Reported. Problems Name Problem SNOMED Code Status Onset Date Resolution Date Notes Provider Name and Address Organization Details Recorded Time Impacted cerumen of bilateral ears 5732122713491 108 Active 2024 WENDY PATEL PA-C [address] [facility],[address] [facility], [place], [address], [place] - [facility] 5 12:06:34 Sensorineur al hearing loss of bilateral ears 228442396 Active 2024 JOHNATHON POZO, AUD [address] [facility],[place] [address], [place], [address], [place] - [facility] 13:25:21 Impacted cerumen in left ear 1735283743469 101 Active 2024 WENDY PATEL PA-C [address] [facility],[place] [address], [place], [address], [facility] - [facility] 15:20:29 Mass of tongue 757422872 Active 2024 Preet Gil, DO [address] [facility],[place] [address], [place], [address], [place] - [facility] 5 08:52:45 Problem Notes None recorded. Procedures Surgical History Date Name Laterality Status Provider Name and Address Organization Details Recorded Time 5 Cerumen removal without microscope bilat completed EDWARD CABEZAS HI [address] [facility],[address], [address], [place] - [facility] 04/26/2025 13:55:20 5 FOL_normal_DHL completed Preet Gil DO [address] [facility],[address], [address], [facility] - [facility] 02/11/2025 10:15:38 5 Comp Audio with Tymps - 59084 & 93526 completed JOHNATHON POZO, AUD [address] [facility],[address], [address], [facility] - [facility] 10/23/2024 13:25:16 5 Cerumen removal without microscope left completed WENDY PATEL PA-C [address] [facility],[address], [address], [facility] - [facility] 10/23/2024 15:21:03 Cerumen removal with microscope bilateral completed WENDY PATEL PA-C [address] [facility],[place] [address], [place], [address], [facility] 10/08/2024 10:40:11 Imaging Results None recorded. Procedure Notes None recorded. Medical Equipment None Reported. Allergies Allergen ID Allergen Name Allergen Category Reaction Reaction Severity Criticality Documentation Date Start Date Code Code System Note Provider Name and Address Organization Details Recorded Time 948911 ibuprofen medicatio n Not available Not available [...] Updated DateTime 04/26/2025 162.56 cm 34.3 kg/m2 36163.47 g Agustina Reyes [place] - [facility] 04/26/2025 13:01:20 Social History Question Answer Notes LastModified by Organizat ion Details LastModified Time Tobacco Smoking Status Never Smoker Kim boyle [place] - [facility] 10/08/2024 10:14:11 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 No [email or web address] Information not available 10/08/2024 Are You Passively Exposed To Smoke? No [email or web address] Information not available 10/08/2024 Are There Any Smokers In Your House? No Information not available 10/08/2024 Sex: Unknown Functional Status Question Answer Note LastModified by Organization Details LastModified Time Do you use any illicit or recreational drugs? No [email or web address] Information not available 10/08/2024 Do you or have you ever used any other forms of tobacco or nicotine? No [email or web address] Information not available 10/08/2024 What is your level of alcohol consumption? 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 noExposureToExcessiveNoise Infor [email or web address] not available 10/08/2024 Mental Status None recorded. Family History Nothing Reported. Medical History Condition Response Allergies/Hayfever N Heart Problems Y Anxiety N Tonsil Infections N Emphysema N Migraines N Thyroid Problems Y Glaucoma N Developmental Delay N Depression N COPD N Nasal or Sinus Problems N Anemia N Immune System Disorder N Anesthesia Complications N Heart Attack ([place]) N Other Skin Condition N Diabetes Y [...] ICD10 Code Diagnosis IMO Codes Diagnosis Note 06378 SHERI SHOOK [facility] of [address] [address] 04/26/2025 12:35:17 04/26/2025 13:40:56 Impacted cerumen of bilateral ears 4409162344 165378 H61.23 786260 Will switch from hydrogen peroxide to mineral oil to better soften the wax. Health Concerns Section Related Observation LastModified by Organization Detai ls LastModified Time None Recorded Concern Status LastModified by Organization Details LastModified Time None Recorded Payers Encounter Date Sequence Insurance Name Policy Number Policy Reynaga Covered Member ID Reynaga Member ID Guarantor Name 04/26/[address] [place] [address] [id number] Armen Wesley [id number] Armen Olson Notes Date Note Type Note Provider Name and Address Organization Details Recorded Time 04/26/2025 text/html ROS as noted in the HPI 50-year-old male presents for wax removal. Patient is doing well overall with no acute concerns to report today. He uses a 50/50 hydrogen peroxide and water solution for maintenance. Hearing is stable. PREET RENTERIA MD [address] [place] [address], [address], [facility] - [facility] 04/26/2025 17:39:45
--- OUTSIDE RECORDS SUMMARY | 2025-05-03 20:09 | XMS_ITS | Clinical Summary ---
Author Organization [facility] Address [address] [place] [address] Care Team Providers Care Dye Lab Technician Name Role Phone Lennox Tsang MD Primary Care Provider [phone] Allergies No known active allergies Medications spironolactone [...] M, W, Th, Sat, Sun. Coumadin clinic [facility] managing INR Active atorvastatin (LIPITOR) 20 [...] mouth 1 (one) time each day. Active metoprolol succinate (TOPROL-XL) 50 mg 24 [...] (twelve) hours. 8 each 3 5 Active torsemide (DEMADEX) 20 mg tablet Take 3 tablets every morning and 2 tablets every evening 450 tablet 3 5 Active torsemide (DEMADEX) 20 mg tablet TAKE THREE TABLETS BY MOUTH EVERY MORNING AND TAKE TWO TABLETS EVERY EVENING 450 tablet 3 5 025 Discontin ued(Reord er) enoxaparin (LOVENOX) [...] Type Department Care Team Description 04/24/2025 Telephone [facility] [address] [facility] [address] [place] [address] Rupesh [place] 04/02/2025 Telephone [facility] [address] [facility] [address] [place] [address] Zac Lal MD 04/01/2025 Telephone [facility] [address] [facility] [address] [place] [address] Provider, Not In System 03/26/2025 Telephone [facility] [address] [facility] [address] [place] [address] Zac Lal MD 03/22/2025 3:00 PM EDT Office Visit [facility] [address] [facility] Moise [address] [place] [address] Zac Lal MD Chronic diastolic heart failure [...] GEMUSE QTc 505 ms GEMUSE P Wave [place] 25 degrees GEMUSE R [place] 43 degrees GEMUSE T [place] -146 degrees GEMUSE ECG Interpretation Normal sinus rhythm Possible Left atrial enlargement Left bundle branch block Abnormal ECG When compared with ECG of 01-JUN-2024 08:17, No significant change was found Confirmed by Beba LAL JAMES ([id number]) on 03/22/2025 5:18:37 PM GEMUSE 03/22/2025 3:26 PM EDT 03/22/2025 5:18 PM EDT us Zac Lal MD ECG ORDERABLES Final Result GEMUSE from Last 3 Months Insurance [facility] Care Teams Dye Lab Technician Relationship Specialty Start Date End Date Lennox Tsang MD [address] [place] [address] Drive [address] [place], [place] [id number] PCP - General Internal Medicine 03/22/25
--- OUTSIDE RECORDS SUMMARY | 2025-05-03 20:09 | XMS_ITS | Patient Health Record ---
Author Organization [facility] Address [address] [facility] [address] [place] [address] Care Team Providers Care Welfare Specialist Name Role Phone Lennox Tsang Primary [...] Status Risk Notes Problem Atherosclerosis of artery (536145686) Arterial atherosclerosis (I70.8) Active confirmed Plan Of Treatment Pending Test Test Name Order Date EMIL 04/19/2022 Ultrasound : Artery Doppler Low Ext Bila t 04/19/2022 X ray : Foot, left 3v 04/19/2022 Insurance Providers Payer Name Payer Address Payer Phone Subscriber Number Group Number Insured Name Patient Relationship to Insured Coverage Start Date Coverage End Date [facility] [address] [place], [place] [address] [id number] Armen Olson Self - patient is the [...]
--- OUTSIDE RECORDS SUMMARY | 2025-05-03 20:10 | XMS_ITS | Patient Health Record ---
Author Organization Lennox Tsang MD Address [address] [place], [place] [id number] Care Team Providers Care Supervising Nurse Name Role Phone Lennox Tsang Primary Care Provider Allergies Allergen (clinical drug ingredient) Drug/Non Drug Allergy documented on EMR Reaction Allergy Type Onset Date Status ibuprofen Ibuprofen bleeding Drug Allergy Active Results Component Value Reference Range Notes Liver Panel Reviewed date:07/30/2024 06:02:36 PM Interpretation: Performing Lab:[facility], [address] [place] [phone] Notes/Report: Bilirubin Total 0.7 0.0-1.0 mg/dL Bilirubin Direct 0.2 0.0-0.5 mg/dL Aspartate Amino Transferase 29 5-37 U/L Alanine Aminotransferase 32 0-40 U/L Total Protein 7.8 6.5-8.0 g/dL Albumin Level 4.2 3.5-5.0 g/dL Alkaline Phosphatase 91 39-117 U/L Blood Urea Nitrogen Reviewed date:07/30/2024 06:02:51 PM Interpretation: Performing Lab:[facility], [address] [place] [phone] Notes/Report: Blood Urea Nitrogen 27 9-16 mg/dL Creatinine Reviewed date:07/30/2024 06:02:43 PM Interpretation: Performing Lab:[facility], [address] [place] [phone] Notes/Report: Creatinine 1.25 0.5-1.4 mg/dL Estimated Glomerular Filt Rate > 60 Chronic Kidney Disease: Estimated GFR < 60 mL/min/1.73m2 Severe Kidney Disease: Estimated GFR < 15 mL/min/1.73m2 Lipid Panel Reviewed date:07/30/2024 06:02:22 PM Interpretation: Performing Lab:[facility], [address] [place] [phone] Notes/Report: Triglycerides 217 <150 mg/dL Desirable Triglyceride: [...] Panel Reviewed date:11/02/2024 12:41:22 PM Interpretation: Performing Lab:[facility], [address] [place] [phone] Notes/Report: Bilirubin Total 0.6 0.0-1.0 mg/dL Bilirubin Direct 0.2 0.0-0.5 mg/dL Aspartate Amino Transferase 45 5-37 U/L Slight Hemolysis.Interpret result with caution. Alanine Aminotransferase 31 0-40 U/L Total Protein 8.1 6.5-8.0 g/dL Albumin Level 4.9 3.5-5.0 g/dL Alkaline Phosphatase 85 39-117 U/L Lipid Panel with Reflex Reviewed date:11/02/2024 12:41:04 PM Interpretation: Performing Lab:[facility], [address] [place] [phone] Notes/Report: Triglycerides 176 <150 mg/dL Desirable Triglyceride: [...] low results in patients with liver disease. Complete Blood Count Auto Di ff Reviewed date:04/26/2025 06:43:11 PM Interpretation: Performing Lab:[facility], [address] [place] [phone] Notes/Report: White Blood Count 11.8 4.8-10.8 X10*3/uL [...] NRBC Abs Auto 0.000 0.0-0.012 X10*3/uL Comprehensive [place]. Panel Fa st Reviewed date:04/26/2025 06:37:41 PM Interpretation: Performing Lab:[facility], [address] [place] [phone] Notes/Report: Sodium 137 135-145 mmol/L Potassium 4.4 3.3-5.1 mmol/L Slight Hemolysis.Interpret result with caution. Chloride 99 96-108 mmol/L [...] Panel Reviewed date:04/26/2025 12:24:43 PM Interpretation: Performing Lab:[facility], [address] [place] [phone] Notes/Report: Triglycerides 285 <150 mg/dL Slight Lipemia. [...] (Free>4and<10) Reviewed date:04/26/2025 06:37:49 PM Interpretation: Performing Lab:[address] [phone] Notes/Report: PSA,Total (Free>4and<10) 0.31 0.00-4.00 ng/mL A [...] Random Reviewed date:04/26/2025 12:37:54 PM Interpretation: Performing Lab:[address] [address] Notes/Report: Creatinine Urine 160.53 Microalbumin Urine 58.0 Microalbum/Creatinine Ratio Ur 36.1 <30 ug/mg cr Albumin/Creatinine Ratio Reference Ranges: Normal: < 30 ug/mg creatinine Microalbuminuria: 30 - 300 ug/mg creatinine Clinical Albuminuria: > 300 ug/mg creatinine Hemoglobin A1c Reviewed date:04/26/2025 12:14:03 PM Interpretation: Performing Lab:[address] [phone] Notes/Report: Hemoglobin A1c % 6.7 <6.0 % [...] average glucose, using the formula of the [id number] Average Glucose study (ADAG), Diabetes Care, Vol.31,#8, Dec. 2007 UA ClnCatch+Micro w/rflx Cul t Reviewed date:04/26/2025 12:25:03 PM Interpretation: Performing Lab:[facility], [address] [place] [phone] Notes/Report: Urine, Clean Catch Color Urine Yellow Appearance Urine Clear PH 5.5 5.0-9.0 Glucose Urine UA Negative Negative mg/dL Urine Blood Negative Negative Specific [place] - Urine 1.015 1.005-1.025 Urine Protein Trace Neg-Trace mg/dL Urine Ketones Trace Negative mg/dL Nitrite Urine Negative Negative Leukocyte Esterase Urine Negative Negative RBC Urine 0-2 0-2 /HPF WBC Urine 0-5 0-5 /HPF Squamous Epithelial Cell Urine 0-2 0-2 /HPF Bacteria Urine None Seen None Seen Hyaline Casts Urine 3-5 0-2 /LPF Occult Blood, Stool, Guaiac Reviewed date:05/03/2025 03:26:51 PM Interpretation:Negative Performing Lab: Notes/Report: Negative Occult Blood, Stool, Guaiac Neg XR ribs LT min 3V w CXR1V Reviewed date:05/31/2024 01:01:03 PM Interpretation:see back 05-31-2024 Performing Lab: Notes/Report: [address] [address] XRay Report Signed Patient: Armen Olson MR#: [id number] : 1975 Acct:[id number] Age/Sex: 49 / M ADM Date: 05/30/24 Loc: HO.LAB Attending Dr: Lennox Tsang MD Ordering Physician: Lennox Tsang MD Date of Service: 05/30/24 Procedure(s): XR ribs LT min 3V w CXR1V Accession Number(s): [id number] cc: Lennox Tsang MD CLINICAL HISTORY: FELL [...] in OV> 05/30/24704 DD/ 2 TD/TT: 05/30/24702 Data Warehouse Manager: [address] [address] XRay Report Signed Patient: Armen Olson MR #: [id number] : 1975 Acct:[id number] Age/Sex: 49 / M ADM Date: 05/30/24 Loc: HO.LAB Attending Dr: Lennox Tsang MD Ordering Physician: Lennox Tsang MD Date of Service: 05/30/24 Procedure(s): XR rib s LT min 3V w CXR1V Accession Number(s): [id number] cc: Lennox Tsang MD CLINICAL HISTORY: FE [...] in OV> 05/30/24704 DD/ 2 TD/TT: 05/30/24702 Data Warehouse Manager: Hold Gold Reviewed date:07/30/2024 12:44:46 PM Interpretation: Performing Lab:[facility], [address] [place] [phone] Notes/Report: Hold Igor See Note Specimen held untested for 24 hours; Call to request Chemistry testing. INR WHOLE BLOOD POC Reviewed date:08/16/2024 10:45:38 AM Interpretation: Performing Lab:[facility], [address] [place] [phone] Notes/Report: PT, INR - [facility] 4.0 0.9-1.1 METER #: [id number] INTERNATIONAL NORMALIZED RATIO (INR) REFERENCE RANGES Reference [...] OC Reviewed date:08/16/2024 10:45:10 AM Interpretation: Performing Lab:[facility], [address] [place] [phone] Notes/Report: Prothrombin Time Whole Bld POC 48.1 11.1-13.5 sec INR WHOLE BLOOD POC Reviewed date:10/12/2024 12:18:05 PM Interpretation: Performing Lab:[facility], [address] [place] [phone] Notes/Report: PT, INR - [facility] 3.8 0.9-1.1 METER #: [id number] INTERNATIONAL NORMALIZED RATIO (INR) REFERENCE RANGES Reference [...] OC Reviewed date:10/12/2024 12:17:08 PM Interpretation: Performing Lab:[facility], [address] [place] [phone] Notes/Report: Prothrombin Time Whole Bld POC 45.0 11.1-13.5 sec INR WHOLE BLOOD POC Reviewed date:10/25/2024 12:36:37 PM Interpretation: Performing Lab:[facility], [address] [place] [phone] Notes/Report: PT, INR - [facility] 3.8 0.9-1.1 METER #: [id number] INTERNATIONAL NORMALIZED RATIO (INR) REFERENCE RANGES Reference [...] OC Reviewed date:10/25/2024 12:38:11 PM Interpretation: Performing Lab:[facility], [address] [place] [phone] Notes/Report: Prothrombin Time Whole Bld POC 45.1 11.1-13.5 sec Hold Gold Reviewed date:11/02/2024 12:40:55 PM Interpretation: Performing Lab:[facility], [address] [place] [phone] Notes/Report: Raudel Gold See Note Specimen held untested for 24 hours; Call to request Chemistry testing. INR WHOLE BLOOD POC Reviewed date:11/09/2024 12:09:03 PM Interpretation: Performing Lab:[facility], [address] [place] [phone] Notes/Report: PT, INR - [facility] 2.5 0.9-1.1 METER #: [id number] INTERNATIONAL NORMALIZED RATIO (INR) REFERENCE RANGES Reference [...] OC Reviewed date:11/09/2024 04:30:54 PM Interpretation: Performing Lab:[facility], [address] [place] [phone] Notes/Report: Prothrombin Time Whole Bld POC 29.5 11.1-13.5 sec INR WHOLE BLOOD POC Reviewed date:11/20/2024 10:24:22 AM Interpretation: Performing Lab:[facility], [address] [place] [phone] Notes/Report: PT, INR - [facility] 4.1 0.9-1.1 METER #: [id number] INTERNATIONAL NORMALIZED RATIO (INR) REFERENCE RANGES Reference [...] OC Reviewed date:11/20/2024 10:24:14 AM Interpretation: Performing Lab:[facility], [address] [place] [phone] Notes/Report: Prothrombin Time Whole Bld POC 49.3 11.1-13.5 sec INR WHOLE BLOOD POC Reviewed date:12/04/2024 12:19:35 PM Interpretation: Performing Lab:[address] [phone] Notes/Report: PT, INR - [facility] 4.9 0.9-1.1 METER #: [id number] INTERNATIONAL NORMALIZED RATIO (INR) REFERENCE RANGES Reference [...] OC Reviewed date:12/04/2024 12:19:18 PM Interpretation: Performing Lab:[facility], [address] [place] [phone] Notes/Report: Prothrombin Time Whole Bld POC 58.7 11.1-13.5 sec INR WHOLE BLOOD POC Reviewed date:12/18/2024 12:43:44 PM Interpretation: Performing Lab:[facility], [address] [place] [phone] Notes/Report: PT, INR - [facility] 3.9 0.9-1.1 METER #: [id number] INTERNATIONAL NORMALIZED RATIO (INR) REFERENCE RANGES Reference [...] OC Reviewed date:12/18/2024 12:43:52 PM Interpretation: Performing Lab:[facility], [address] [place] [phone] Notes/Report: Prothrombin Time Whole Bld POC 47.0 11.1-13.5 sec INR WHOLE BLOOD POC Reviewed date:12/24/2024 04:37:33 PM Interpretation: Performing Lab:[facility], [address] [place] [phone] Notes/Report: PT, INR - [facility] 2.0 0.9-1.1 METER #: [id number] INTERNATIONAL NORMALIZED RATIO (INR) REFERENCE RANGES Reference [...] OC Reviewed date:12/24/2024 04:37:23 PM Interpretation: Performing Lab:[facility], [address] [place] [phone] Notes/Report: Prothrombin Time Whole Bld POC 24.3 11.1-13.5 sec INR WHOLE BLOOD POC Reviewed date:12/31/2024 05:48:15 PM Interpretation: Performing Lab:[facility], [address] [place] [phone] Notes/Report: PT, INR - [facility] 2.6 0.9-1.1 METER #: [id number] INTERNATIONAL NORMALIZED RATIO (INR) REFERENCE RANGES Reference [...] OC Reviewed date:12/31/2024 05:45:34 PM Interpretation: Performing Lab:[facility], [address] [place] [phone] Notes/Report: Prothrombin Time Whole Bld POC 30.8 11.1-13.5 sec INR WHOLE BLOOD POC Reviewed date:01/15/2025 02:51:48 PM Interpretation: Performing Lab:[facility], [address] [place] [phone] Notes/Report: PT, INR - [facility] 3.4 0.9-1.1 METER #: [id number] INTERNATIONAL NORMALIZED RATIO (INR) REFERENCE RANGES Reference [...] OC Reviewed date:01/15/2025 04:43:48 PM Interpretation: Performing Lab:[facility] [address] [phone] Notes/Report: Prothrombin Time Whole Bld POC 41.4 11.1-13.5 sec INR WHOLE BLOOD POC Reviewed date:02/04/2025 04:43:47 PM Interpretation: Performing Lab:[facility], [address] [place] [phone] Notes/Report: PT, INR - [facility] 3.3 0.9-1.1 METER #: [id number] INTERNATIONAL NORMALIZED RATIO (INR) REFERENCE RANGES Reference [...] OC Reviewed date:02/04/2025 04:43:55 PM Interpretation: Performing Lab:[facility], [address] [place] [phone] Notes/Report: Prothrombin Time Whole Bld POC 39.4 11.1-13.5 sec INR WHOLE BLOOD POC Reviewed date:02/27/2025 08:08:45 AM Interpretation: Performing Lab:[facility], [address] [place] [phone] Notes/Report: PT, INR - [facility] 2.6 0.9-1.1 METER #: [id number] INTERNATIONAL NORMALIZED RATIO (INR) REFERENCE RANGES Reference [...] OC Reviewed date:02/27/2025 08:08:37 AM Interpretation: Performing Lab:[facility], [address] [place] [phone] Notes/Report: Prothrombin Time Whole Bld POC 31.4 11.1-13.5 sec INR WHOLE BLOOD POC Reviewed date:03/19/2025 12:41:47 PM Interpretation: Performing Lab:[facility], [address] [place] [phone] Notes/Report: PT, INR - [facility] 2.9 0.9-1.1 METER #: [id number] INTERNATIONAL NORMALIZED RATIO (INR) REFERENCE RANGES Reference [...] OC Reviewed date:03/19/2025 12:41:38 PM Interpretation: Performing Lab:[facility], [address] [place] [phone] Notes/Report: Prothrombin Time Whole Bld POC 35.0 11.1-13.5 sec INR WHOLE BLOOD POC Reviewed date:04/11/2025 12:47:05 PM Interpretation: Performing Lab:[facility], [address] [place] [phone] Notes/Report: PT, INR - [facility] 3.8 0.9-1.1 METER #: [id number] INTERNATIONAL NORMALIZED RATIO (INR) REFERENCE RANGES Reference [...] OC Reviewed date:04/11/2025 12:46:47 PM Interpretation: Performing Lab:[facility], [address] [place] [phone] Notes/Report: Prothrombin Time Whole Bld POC 45.7 11.1-13.5 sec Prothrombin Time INR Reviewed date:04/20/2025 03:44:30 PM Interpretation: Performing Lab:[facility], [address] [place] [phone] Notes/Report: Prothrombin Time 15.8 11.2-13.5 SEC INTERNATIONAL NORM RATIO 1.3 0.9-1.1 INTERNATIONAL NORMALIZED RATIO (INR) REFERENCE RANGES Results of INR called to [facility] on 04/19/25 at 0917 by ARABELLA. Reference [...] REFERENCE RANGES Results of INR called to [facility] on 04/19/25 at 0917 by ARABELLA. Reference [...] mechanical prosthetic heart valves: 2.5 - 3.5 CORRECTED REPORT Prothrombin Time INR Reviewed date:04/24/2025 01:35:29 PM Interpretation: Performing Lab:[facility], [address] [place] [phone] Notes/Report: Prothrombin Time 17.9 11.2-13.5 SEC INTERNATIONAL [...] heart valves: 2.5 - 3.5 Prothrombin Time INR Reviewed date:04/26/2025 12:27:01 PM Interpretation: Performing Lab:[facility], [address] [place] [phone] Notes/Report: Prothrombin Time 21.0 11.2-13.5 SEC INTERNATIONAL NORM RATIO 1.7 0.9-1.1 INTERNATIONAL NORMALIZED RATIO (INR) REFERENCE RANGES [...] mechanical prosthetic heart valves: 2.5 - 3.5 INR WHOLE BLOOD POC Reviewed date:04/29/2025 05:43:32 PM Interpretation: Performing Lab:[facility], [address] [place] [phone] Notes/Report: PT, INR - [facility] 2.6 0.9-1.1 METER #: [id number] INTERNATIONAL NORMALIZED RATIO (INR) REFERENCE RANGES Reference [...] Prothrombin Time Whole Bld P OC Reviewed date:04/29/2025 05:43:23 PM Interpretation: Performing Lab:[address] [phone] Notes/Report: Prothrombin Time Whole Bld POC 31.1 11.1-13.5 sec INR WHOLE BLOOD POC Reviewed date:05/03/2025 05:27:10 PM Interpretation: Performing Lab:[address] [phone] Notes/Report: PT, INR - [facility] 2.7 0.9-1.1 METER #: [id number] INTERNATIONAL NORMALIZED RATIO (INR) REFERENCE RANGES Reference [...] Prothrombin Time Whole Bld P OC Reviewed date:05/03/2025 05:27:19 PM Interpretation: Performing Lab:[address] [phone] Notes/Report: Prothrombin Time Whole Bld POC 31.8 11.1-13.5 sec Reason For Referral No Information Medications Medication SIG (Take, Route, Frequency, Duration) Notes Start Date End Date Status Torsemide 20 MG 2 tabs Q AM Orally Active Allopurinol 300 MG TAKE ONE TABLET BY MOUTH ONCE DAILY for 90 Active Spironolactone 100 MG 1 tablet Orally BID Active Diprolene AF 0.05 % 1 application Externally Once a day for 90 days 04/14/2020 Active Celecoxib 200 MG 1 capsule with food Orally Once a day for 90 days Not-Taking Albuterol Sulfate HFA 108 (90 Base) MCG/ACT 1 puff as needed Inhalation every 4 hrs for 30 days 05/06/2020 Active Colchicine 0.6 MG TAKE ONE TABLET TWO TIMES A DAY for 10 Active Warfarin Sodium 5 MG 2 tabs Orally Once a day for 90 days Active Atorvastatin Calcium 20 MG 1 tablet Oral ly Once a day 04/30/2024 Active Metoprolol Succinate ER 50 MG 50mg Orally Once a day Activ e metFORMIN HCl 500 MG 2tablet with a meal Orally twice a day Active Immunizations Vaccine Route Administration Date Status [...] Problem Status W/U Status Risk Notes Problem 23092863 Rectal bleeding (K62.5) Active confirmed Problem Gout (82728652) Gout (M10.9) Active confirmed Problem Hypomagnesemia (448341843) Hypomagnesemia (E83.42) Active confirmed Problem Hypercalcemia (45517786) Hypercalcemia (E83.52) Active confirmed Problem 074839479 Other ascites (R18.8) Active confirme d Problem 6200231781608 Aortic valve prosthesis present (Z95.2) Active confirmed Problem 602755895 Chronic systolic congestive heart failure (I50.22) Active confirmed Problem 61965042 Obstructive slee p apnea syndrome (G47.33) Active confirmed Problem 33757905 Hyperparathyroid ism (E21.3) Active confirmed Problem 60678796 Intrinsic eczema (L20.84) Active confirmed Problem 796510732 Leukocytosis, unspecified type (D72.829) Active confirmed Problem 69447146 Arthralgia, unspecified joint (M25.50) Active confirmed Problem 39381388 Cardiac asthma (I50.1) Active confirmed Problem 365101389 Fatty liver (K76.0) Active confirmed Problem Chronic systolic heart failure (951306245) Chronic systolic CHF (congestive heart failure) (I50.22) Active confirmed Problem 42878293 Hypercholesterem ia (E78.00) Active confirmed Problem 936730041 Type 2 diabetes mellitus without complication, without long-term current use of insulin (E11.9) Active confirmed Problem 824962557 Mild intermitten t asthmatic bronchitis with acute exacerbation (J45.21) Active confirmed Problem 221818526118067 Acute drug-induc ed gout of foot, unspecified laterality (M10.279) Active confirmed Problem 904799652 Obesity (BMI 35.0-39.9 without comorbidity) (E66.9) Active confirmed Vital Signs Blood pressure diastolic 70 mm Hg 05/03/2025 tanya ght is down 3 pounds since 08-06-24 Height 64 in 05/03/2025 weight is down 3 pounds since 08-06-24 Blood pressure systolic 98 mm Hg 05/03/2025 weig ht is down 3 pounds since 08-06-24 Weight 215 lbs 05/03/2025 weight is down 3 pounds since 08-06-24 BMI 36.9 kg/m2 05/03/2025 weight is down 3 pounds since 08-06-24 Encounters Encounter Location Date Provider Diagnosis Lennox Tsang MD [address] [place] [address] Drive [address] [place], [place] [id number] 07/30/2024 Lennox Tsang Hyperparathyroidism E21.3 Lennox Tsang MD [address] [place] [id number] 11/02/2024 Lennox Tsang Hypercholesteremia E 78.00 Lennox Tsang MD [address] [place] [id number] 04/26/2025 Lennox Tsang Blood tests for rout ine general physical examination Z00.00 ; Chronic systolic congestive heart failure I50.22 ; Hypercholesteremia E78.00 and Type 2 diabetes mellitus without complication, without long-term current use of insulin E11.9 Lennox Tsang MD [address] [place] [id number] 05/03/2025 Lennox Tsang Type 2 diabetes jaylene itus without complication, without long-term current use of insulin E11.9 ; Adult general medical examination Z00.00 ; Fatty liver K76.0 ; Chronic systolic congestive heart failure I50.22 ; Hypercholesteremia E78.00 ; Colon cancer screening Z12.11 and Depression screen Z13.31 Lennox Tsang MD [address] [place] [id number] 05/29/2024 Lennox Tsang Fall on stairs, init ial encounter W10.9XXA and Closed fracture of one rib of left side, initial encounter S22.32XA Lennox Tsang MD [address] [place] [id number] 05/31/2024 Lennox Tsang Chronic systolic congestive heart failure I50.22 Lennox Tsang MD [address] [place] [id number] 08/06/2024 Lennox Tsang Chronic systolic congestive heart failure I50.22 ; Obstructive sleep apnea syndrome G47.33 ; Aortic valve prosthesis present Z95.2 and Hypercholesteremia E78.00 Lennox Tsang MD [address] [place] [id number] 08/03/2024 Lennox Tsang MD [address] [place] [id number] 08/06/2024 Lennox Tsang MD [address] [place] [id number] 05/28/2024 Lennox Tsang MD [address] [place] [id number] 05/30/2024 Lennox Tsang MD [address] [place] [id number] 07/18/2024 Lennox Tsang MD [address] [place] [id number] 07/20/2024 Lennox Tsang COVID-19 U07.1 Lennox Tsang MD [address] [place] [id number] 07/23/2024 Lennox Tsang MD [address] [place] [address] [id number] 07/23/2024 Lennox Tsang MD [address] [place] [address] [id number] 09/10/2024 Lennox Tsang MD [address] [place] [id number] 09/15/2024 Lennox Tsang MD [address] [place] [id number] 01/01/2025 Lennox Tsang MD [address] [place] [id number] 01/28/2025 Lennox Tsang Hypercholesteremia E 78.00 Lennox Tsang MD [address] [place] [id number] 01/28/2025 Lennox Tsang MD [address] [place] [address] [id number] 03/22/2025 Lennox Tsang MD [address] [place] [address] [id number] 04/24/2025 Lennox Tsang MD [address] [place] [id number] 04/26/2025 Lennox Tsang Assessments Encounter Date Diagnosis (ICD Code) Assessment Notes Treatment Notes Treatment Clinical Notes Section Notes 07/30/2024 Hyperparathyroidism (ICD-10 - E21.3) 11/02/2024 Hypercholesteremia (ICD-10 - E78.00) 04/26/[address] ine general physical examination (ICD-10 - Z00.00) 05/03/2025 Type 2 diabetes mellitus without complication, without long-term current use of insulin (ICD-10 - E11.9) doing well with good a1c, will continue current regiment 05/03/2025 Adult general medica l examination (ICD-10 - Z00.00) labs reviewed and discussed with patient 05/29/2024 Fall on stairs, init ial encounter (ICD-10 - W10.9XXA) pending diagnostic testing, order faxed to [facility] Patient Reg 05/29/2024 Closed fracture of o [...] - U07.1) 01/28/2025 Hypercholesteremia (ICD-10 - E78.00) 04/26/2025 Chronic systolic congestive heart failure (ICD-10 - I50.22) 05/03/2025 Fatty liver (ICD-10 - K76.0) is on diet, will continue to monitor 08/06/2024 Obstructive sleep ap agnieszka syndrome (ICD-10 - G47.33) using cpap 04/26/2025 Hypercholesteremia (ICD-10 - E78.00) 05/03/2025 Chronic systolic congestive heart failure (ICD-10 - I50.22) stable on diuretics, will continue current regiment 08/06/2024 Aortic valve prosthe sis present (ICD-10 - Z95.2) has been doing well 04/26/2025 Type 2 diabetes mellitus without complication, without long-term current use of insulin (ICD-10 - E11.9) 05/03/2025 Hypercholesteremia (ICD-10 - E78.00) 08/06/2024 Hypercholesteremia (ICD-10 - E78.00) 05/03/2025 Colon cancer screeni ng (ICD-10 - Z12.11) guaiac negative 05/03/2025 Depression screen (ICD-10 - Z13.31) negative screen Plan Of Treatment Pending Test Test Name Order Date Electrocardiogram (EKG) 10/20/2012 Electrocardiogram (EKG) 02/10/2018 XR CHEST 2 VIEW PA & LAT 05/25/2022 Next Appt Details Provider Name:Lennox Reyes ier, 10/28/2025 07:30:00 AM, [address] [place] [address], Suite [facility], [place], [place], [phone], Provider Name:Lennox Reyes ier, 11/04/2025 03:00:00 PM, [address] [place] [address], [address] [facility], [place], [place], [phone], Provider Name:Lennox Reyes ier, 04/28/2026 07:15:00 AM, [address] [place] [address], [address] [facility], [place], [place], [id number], Provider Name:Lennox Reyes ier, 05/05/2026 03:15:00 PM, [address] [place] [address], [address] [facility], [place], [place], [id number], Insurance Providers Payer Name Payer Address Payer Phone Subscriber Number Group Number Insured Name Patient Relationship to Insured Coverage Start Date Coverage End Date [address] [place] [address] [id number] ; [id number] Armen Olson Self - patient is the insured Medical (General) History Medical History History ICD Code Hx of Umbilical Hernia discussed colonoscopy and he wants to wait: 11/24/22 colonoscopy tubular adenoma. repeat in 5 years Prediabetes R73.09 lovenox dose is 100 units twice a day Surgical History Surgery Date(Month/Year) aortic valve replacement 2002 cervical spine fusion
--- OUTSIDE RECORDS SUMMARY | 2025-05-03 20:10 | XMS_ITS | Data Portability ---
Author Organization [place] - [facility], Allergy Address 100 [facility] 100 [place] [address] Care Team Providers Care Sample Finisher Name Role Phone KHADIJAH GODWIN Primary Care [...] pursing due to limited finances. F/U PRN. [email or web address] Not available 11/15/2024 13:19:16 02/11/2025 02/11/2025 49-year-old [...] Medication Orders mineral oil topical 2024 025 [facility] ([facility]), [address] [place] [address], [place], [address], 04/26/2025 13:35:22 Patient TargetsNo targets recorded. Patient InstructionsNo instructions recorded. Reason for Referral None Reported. Results Created Date Observation Date Name Description Value Unit Range Abnormal Flag Note LastModifiedBy Organization Detail LastModifiedTime 10/24/19 audio gram No observ ation record ed. BARCODE Not Available 2024 15:37:00 02/12/20 25 11/09/2024 CT, neck, soft tissu e, w/wo contr ast No observ ation record ed. Not Available 01/22 10:28:57 Result Notes None recorded. Problems Name Problem SNOMED Code Status Onset Date Resolution Date Notes Provider Name and Address Organization Details Recorded Time Impacted cerumen of bilateral ears 1414607418283 108 Active 2024 WENDY PATEL PA-C 100 [facility],[address] [facility], [place], [address], [facility] 5 12:06:34 Sensorineur al hearing loss of bilateral ears 816928720 Active 2024 STEVE CARRILLO 100 [facility],[address] [facility], [facility] [place], [address], [facility] 5 13:25:21 Impacted cerumen in left ear 4048630684430 101 Active 2024 WENDY PATEL PA-C 100 [facility], [address], [facility] [place], [address], [facility] 5 15:20:29 Mass of tongue 308351360 Active 2024 Preet Gil DO 100 [facility],[address], [facility] [place], [address], [facility] 5 08:52:45 Problem Notes None recorded. Procedures Surgical History Date Name Laterality Status Provider Name and Address Organization Details Recorded Time Cerumen removal without microscope bilat completed SHERI SHOOK 100 [facility],[address], [place], [address], [facility] - [facility] [place] 04/26/2025 13:55:20 5 FOL_normal_DHL completed Preet Gil, DO 100 [facility],[address], [address], [facility] - [facility] [place] 02/11/2025 10:15:38 5 Comp Audio with Tymps - 07119 & 87355 completed JOHNATHON POZO, AUD 100 [facility],[address], [address], [facility] - [facility] [place] 10/23/2024 13:25:16 5 Cerumen removal without microscope left completed WENDY PATEL PA-C 100 [facility],[address], [address], [facility] - [facility] 10/23/2024 15:21:03 5 Cerumen removal with microscope bilateral completed WENDY PATEL PA-C 100 [facility],[address], [address], [facility] - [facility] 10/08/2024 10:40:11 Imaging Results None recorded. Procedure Notes None recorded. Medical Equipment None Reported. Allergies Allergen ID Allergen Name Allergen Category Reaction Reaction Severity Criticality Documentation Date Start Date Code Code System Note Provider Name and Address Organization Details Recorded Time 166298 ibuprofen medicatio n Not available Not available [...] Address Organization Details Last Updated DateTime 10/08/2024 26668.77 g 36.7 kg/m2 162.56 cm Kim Galo MD - [facility] 10/08/2024 10:13:37 Date Recorded Body height Body mass index (BMI) Body weight Provider Name and Address Organization Details Last Updated DateTime 10/23/2024 162.56 cm 36.9 kg/m2 40960.36 g Agustina Reyes MD - [facility] 10/23/2024 13:45:09 Date Recorded Body height Body mass index (BMI) Body weight Provider Name and Address Organization Details Last Updated DateTime 02/11/2025 162.56 cm 36.9 kg/m2 12121.36 g Jose Garcia MD - [facility] 02/11/2025 09:31:06 Date Recorded Body height Body mass index (BMI) Body weight Provider Name and Address Organization Details Last Updated DateTime 04/26/2025 162.56 cm 34.3 kg/m2 77560.47 g Agustina Reyes MD - [facility] 04/26/2025 13:01:20 Social History Question Answer Notes LastModified by Organizat ion Details LastModified Time Tobacco Smoking Status Never Smoker Kim boyle MD - [facility] 10/08/2024 10:14:11 What Type Of Die Maker Bench Stamping Do You Use? None [email or web address] Information not available 10/08/2024 Do You Have Any Pets? No Information not available 10/08/2024 Are You Passively Exposed To Smoke? No [email or web address] Information not available 10/08/2024 Are There Any Smokers In Your House? No [email or web address] Information not available 10/08/2024 Sex: Unknown Functional Status Question Answer Note LastModified by Organization Details LastModified Time Do you use any illicit or recreational drugs? No [email or web address] Information not available 10/08/2024 Do you or have you ever used any other forms of tobacco or nicotine? No Information not available 10/08/2024 What is your level of alcohol consumption? 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 noExposureToExcessiveNoise [email or web address] Infor mation not available 10/08/2024 Mental Status [...] ICD10 Code Diagnosis IMO Codes Diagnosis Note [id number] WENDY PATEL PA-C [facility] [address] [address] 10/08/2024 09:55:54 10/08/2024 10:46:57 Impacted cerumen of bilateral ears 4322406510 474988 H61.23 402612 Hearing lo ss of left ear 865940830 H91.92 82530084 24738 WENDY PATEL PA-C [facility] [address] [address] 10/23/2024 13:00:43 10/23/2024 14:37:47 Sensorineural hearing loss of bilateral ears 613890856 H90.3 49394567 Audiologic al evaluation results: 10/23/2024 Right ear: Normal through 3 kHz sloping to a mild sensorineu ral hearing loss with excellent word recognitio n. Left ear: Mild rising to normal sloping to moderate sensorineu ral hearing loss with excellent word recognitio n. Tympanomet ry: Right Ear:Type Ad Left Ear:Type A Impacted c erumen in left ear 7457999558 211511 H61.22 8290202 28147 STEVE CARRILLO HERNANDEZ - [address] [address] 11/15/2024 12:36:28 11/16/2024 13:07:37 Sensorineural hearing loss of bilateral ears 347705070 H90.3 55843024 74209 Preet Gil DO [facility] [address] [address] 02/11/2025 09:25:36 02/11/2025 10:16:12 Sensorineural hearing loss of bilateral ears 422918536 H90.3 57220099 Impacted c erumen in left ear 6910318618 050186 H61.22 2890842 Mass of tongue 554290659 K14.8 2134641 6 mm base of tongue 55727 SHERI SHOOK [facility] [address] [address] 04/26/2025 12:35:17 04/26/2025 13:40:56 Impacted cerumen of bilateral ears 1530653093 974625 H61.23 485404 Will switch from hydrogen peroxide to mineral oil to better soften the wax. Health Concerns Section Related Observation LastModified by Organization Detai ls LastModified Time None Recorded Concern Status LastModified by Organization Details LastModified Time None Recorded Advance Directives Directive None Recorded Payers Insurance Date Sequence Insurance Name Policy Number Policy Reynaga Covered Member ID Reynaga Member ID Guarantor Name 04/30/2025 1 [facility] [id number] 3 Armen Olson [id number] Armen Olson Notes Date Note Type Note Provider Name and Address Organization Details Recorded Time 10/08/2024 text/html ROS as noted in the [facility] 49yo male presents for evaluation of [...] cervical fusion, and SINA. He works at [employer]. BAYRON WINSTON MD [address] [place] [address], [address], [facility] - [facility] 10/08/2024 12:19:23 10/23/2024 text/html ROS as [...] Occasional Q tip use. He works at [employer]. 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 He was recently cleared for amplification for his left ear. He has tried hearing aids in the past without much success. He feels he does fine without any amplification. STEVE CARRILLO 100 [facility],[address], [address], [facility] - [facility] 11/15/2024 13:19:38 02/11/2025 text/html ROS as [...] Occasional Q tip use. He works at [employer]. Preet Gil DO 100 [facility],[address], [address], [facility] - [facility] 02/11/2025 10:17:28 04/26/2025 text/html ROS as noted in the HPI 50-year-old male presents for wax removal. Patient is doing well overall with no acute concerns to report today. He uses a 50/50 hydrogen peroxide and water solution for maintenance. Hearing is stable. PREET RENTERIA MD 100 [facility],[address], [address], [facility] 04/26/2025 17:39:45
--- OUTSIDE RECORDS SUMMARY | 2025-05-03 20:10 | XMS_ITS | Continuity of Care Document ---
Author Organization [place] - [facility], [facility] Address 100 [place] [address] Care Team Providers Care Office Manager Name Role Phone KHADIJAH GODWIN Primary [...] Recorded Time Impacted cerumen of bilateral ears 8232194683576 108 Active 2024 WENDY PATEL PA-C 100 [facility],[address], [place], [address], [facility] - [facility] 5 12:06:34 Sensorineur al hearing loss of bilateral ears 746489161 Active 2024 STEVE CARRILLO 100 [facility],[address] [facility], [place], [address], [facility] - [facility] 5 13:25:21 Impacted cerumen in left ear 4405637956850 101 Active 2024 WENDY PATEL PA-C 100 [facility],[address], [place], [address], [facility] 5 15:20:29 Mass of tongue 372384983 Active 2024 Preet Gil DO [address] [place] [address],[address], [place], [address], [facility] 5 08:52:45 Problem Notes None recorded. Procedures Surgical History Date Name Laterality Status Provider Name and Address Organization Details Recorded Time Cerumen removal without microscope bilat completed SHERI SHOOK 100 [facility],[address], [address], [facility] 04/26/2025 13:55:20 FOL_normal_DHL completed Preet Gil DO 100 [facility],[address], [address], [place] - [facility] [place] 02/11/2025 10:15:38 5 Comp Audio with Tymps - 58582 & 04091 completed JOHNATHON POZO, AUD 100 [facility],[address], [place], [address], [place] - [facility] [place] 10/23/2024 13:25:16 5 Cerumen removal without microscope left completed WENDY PATEL PA-C 100 [facility] 100, [place], [address], [facility] - [facility] [place] 10/23/2024 15:21:03 5 Cerumen removal with microscope bilateral completed WENDY PATEL PA-C 100 [facility] 100, [place], [address], [facility] - [facility] [place] 10/08/2024 10:40:11 Imaging Results None recorded. Procedure Notes None recorded. Medical Equipment None Reported. Allergies Allergen ID Allergen Name Allergen Category Reaction Reaction Severity Criticality Documentation Date Start Date Code Code System Note Provider Name and Address Organization Details Recorded Time 062760 ibuprofen medicatio n Not available Not available [...] Updated DateTime 02/11/2025 162.56 cm 36.9 kg/m2 23348.36 g Jose Garcia [place] - [facility] 02/11/2025 09:31:06 Social History Question Answer Notes LastModified by Organizat ion Details LastModified Time Tobacco Smoking Status Never Smoker Kim boyle [place] - [facility] 10/08/2024 10:14:11 What Type Of Pewter Fabricator Do You Use? None Information not available 10/08/2024 Do You Have Any Pets? No [email or web address] Information not available 10/08/2024 Are You Passively Exposed To Smoke? No [email or web address] Information not available 10/08/2024 Are There Any Smokers In Your House? No [email or web address] Information not available 10/08/2024 Sex: Unknown Functional Status Question Answer Note LastModified by Organization Details LastModified Time Do you use any illicit or recreational drugs? No [email or web address] Information not available 10/08/2024 Do you or have you ever used any other forms of tobacco or nicotine? No [email or web address] Information not available 10/08/2024 What is your level of alcohol consumption? None [email or web address] Information not available 10/08/2024 What is your [...] ICD10 Code Diagnosis IMO Codes Diagnosis Note 19906 Preet Gil, DO [facility] [address] [address] 02/11/2025 09:25:36 02/11/2025 10:16:12 Sensorineural hearing loss of bilateral ears 480861230 H90.3 20412069 Impacted c erumen in left ear 2068228831 417335 H61.22 4092302 Mass of tongue 167566823 K14.8 8297830 6 mm base of tongue Health Concerns Section Related Observation LastModified by Organization Detai ls LastModified Time None Recorded Concern Status LastModified by Organization Details LastModified Time None Recorded Payers Encounter Date Sequence Insurance Name Policy Number Policy Reynaga Covered Member ID Reynaga Member ID Guarantor Name 02/11/2025 1 [facility] [id number] 3 Armen Olson [id number] Armen Olson Notes Date Note Type Note [...] Occasional Q tip use. He works at [employer]. Preet Gil, 100 [facility],[place] [address], [place], [address], [facility] - [facility] 02/11/2025 10:17:28
--- OUTSIDE RECORDS SUMMARY | 2025-05-03 20:11 | XMS_ITS | Patient Health Record ---
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[facility] [employer] Section Notes: Nonsmoker; no sig alcohol Problems Problem Type SNOMED Code ICD Code Onset Dates Problem Status W/U Status Risk Notes Problem Rectal bleeding (99068474) Rectal bleeding (K62.5) Active confirmed Problem Screening for malignant neoplasm of colon (395620282) Encounter for screening for malignant neoplasm of colon (Z12.11) Active confirmed Problem Diverticular disease of colon (294692338) Diverticulosis of large intestine without perforation or abscess without bleeding (K57.30) Active confirmed Plan Of Treatment Pending Test Test Name Order Date Pathology 11/24/2022 Future Test Test Name Order Date COLONOSCOPY 10/01/2022 Insurance Providers Payer Name Payer Address Payer Phone Subscriber Number Group Number Insured Name Patient Relationship to Insured Coverage Start Date Coverage End Date [facility] [address] [place] [address] [id number] SARINA HAN Self - patient is the insured Medical (General) History Medical History History ICD Code Denies OK,DM,CVA,Lung disease,renal dise ase 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 Lal in [place] Sleep apnea-CPAP Arrhythmia with PVC's Gout He describes that he has bee n told at [facility] that he is a difficult intubation Surgical History Surgery Date(Month/Year) Heart surgery for IHSS--his heart surgery in 2001 involved replacement of the aortic valve with a [facility]. Fuad's valve 1984,1988,2001 Cervical spine fusion C1-C5 1988 Hernia repair--Bilateral inguinal and um bilical 2011,2014,2017, Tonsillectomy and adenoidectomy
== END 2025-05-03 15:58 | disposition home or self-care (01) ==
LOC: HO.ACS 15:09
PROVIDERS: PCP Internal Medicine; Visit Provider Internal Medicine Medical Oncology
DX: Z79.01 Long term (current) use of anticoagulants (principal)

== ENCOUNTER → 2025-05-03 15:09 | Outpatient (BNVA) | payer OTHER, SELFPAY | PROVIDERS: PCP Internal Medicine; Visit Provider Internal Medicine Medical Oncology | DX: Z95.2 Presence of prosthetic heart valve (principal); Z51.81 Encounter for therapeutic drug level monitoring; Z79.01 Long term (current) use of anticoagulants | CPT/HCPCS: 85610; 99211 ==

== ENCOUNTER 2025-05-20 16:32 | Outpatient (AMB) | payer OTHER, SELFPAY ==
--- OUTSIDE RECORDS SUMMARY | 2024-11-02 02:15 | XMS_ITS ---
Author Organization Lennox Tsang MD Address [address] [place], [place] [phone] Care Team Providers Care Senior Investigator Name Role Phone Lennox Tsang Primary Care Provider Results Component Value Reference Range Notes Liver Panel Reviewed date:11/02/2024 12:41:22 PM Interpretation: Performing Lab:[facility], [address] [place] [phone] Notes/Report: Bilirubin Total 0.6 0.0-1.0 mg/dL Bilirubin Direct 0.2 0.0-0.5 mg/dL Aspartate Amino Transferase 45 5-37 U/L Slight Hemolysis.Interpret result with caution. Alanine Aminotransferase 31 0-40 U/L Total Protein 8.1 6.5-8.0 g/dL Albumin Level 4.9 3.5-5.0 g/dL Alkaline Phosphatase 85 39-117 U/L Lipid Panel with Reflex Reviewed date:11/02/2024 12:41:04 PM Interpretation: Performing Lab:[facility], [address] [place] [phone] Notes/Report: Triglycerides 176 <150 mg/dL Desirable Triglyceride: less than 150 mg/dL Borderline High Triglyceride 150-199 mg/dL High Triglyceride: 200-499 mg/dL Very High Triglyceride: greater than or equal to 5OO mg/dL Cholesterol 151 <200 mg/dL Desirable Cholesterol: less than 200 mg/dL Borderline High Cholesterol: 200-239 mg/dL High Cholesterol: greater than 239 mg/dL LDL Cholesterol Calculated 75 <100 mg/dL Desirable LDL: less than 100 mg/dL Near Optimal/Above Optimal LDL: 110-129 mg/dL Borderline High LDL: 130-159 mg/dL High LDL: 160-189 mg/dL Very High LDL: greater than or equal to 190 mg/dL HDL Cholesterol 41 >40 mg/dL Desirable HDL: greater than 40 mg/dL Note: This HDL assay may give artificially low results in patients with liver disease. REASON FOR VISIT FASTING LIPIDS Encounters Encounter Location Date Provider Diagnosis Lennox Tsang MD [address] [place] [address] [place] [phone] 11/02/2024 Lennox Tsang Hypercholesteremia E 78.00 Assessments Encounter Date Diagnosis (ICD Code) Assessment Notes Treatment Notes Treatment Clinical Notes Section Notes 11/02/2024 Hypercholesteremia (ICD-10 - E78.00) Plan Of Treatment Next Appt Details Provider Name:Lennox white, 10/28/2025 07:30:00 AM, [address] [place] [address], [address], [phone], Provider Name:Lennox white, 11/04/2025 03:00:00 PM, [address] [place] [address], [address], [phone], Provider Name:Lennox white, 04/28/2026 07:15:00 AM, [address] [place] [address], [address], [phone], Provider Name:Lennox white, 05/05/2026 03:15:00 PM, [address] [place] [address], [address], [phone], Progress Notes * Ian HANOB:1975 (50 yo M)Acc No.[id number]:11/02/2024 Progress Note Patient: Armen HAWKINS Provider: Remy Tsang MD :1975 A ge:49 Y S ex:Male Date:11/02/2024 Address:[address] [place], [place] [phone] Subjective: * Chief Complaints: * 1 . FASTING LIPIDS. * Medical History: Objective: * Vitals: Assessment: * Assessment: 1. H ypercholesteremia - E78.00 (Primary) Plan: * Treatment: * Procedure Codes: 3 6415 VENIPUNCT, ROUTINE* * * The named appointment provid er may or may not be the originator of this progress note, and it is not deemed complete until electronically signed by the appointment provider. Sign off status: Pending * Provider: Remy Tsang MD Date: 0 11/02/2024 Generated for Gabriela velazquez/Sarah/Annabellaitting on: 1 06:01 PM EST
--- OUTSIDE RECORDS SUMMARY | 2025-01-01 09:51 | XMS_ITS ---
Author Organization Lennox Tsang MD Address [address] [place] [address] [place] [address] [phone] Care Team Providers Care Recruitment Assistant Name Role Phone Lennox Tsang Primary Care Provider [phone] REASON FOR VISIT Appointments Encounters Encounter Location Date Provider Diagnosis Lennox Tsang MD [address] [place] [address] [address] [place] [address] [phone] 01/01/2025 Lennox Tsang Plan Of Treatment Next Appt Details Provider Name:Lennox white, 10/28/2025 07:30:00 AM, [address] [place] [address], [address], [phone], Provider Name:Lennox white, 11/04/2025 03:00:00 PM, [address] [place] [address], [address], [phone], Provider Name:Lennox white, 04/28/2026 07:15:00 AM, [address] [place] [address], [phone], Provider Name:Lennox white, 05/05/2026 03:15:00 PM, [address] [place] [address], [phone], Progress Notes * Ian HANOB:1975 (49 yo M)Acc No.[id number]:01/01/2025 Patient: Armen HAWKINS :1975 A ge:49 Y S ex:Male Address:[address] [place] [address], [place] [address] * true * Date: Generated for Gabriela velazquez/Sarah/Mariaelenasmitting on: 06:00 PM EST
--- OUTSIDE RECORDS SUMMARY | 2025-01-28 04:33 | XMS_ITS ---
Author Organization Lennox Tsang MD Address [address] [place] [phone] Care Team Providers Care Deburrer Machine Name Role Phone Lennox Tsang Primary Care Provider [phone] REASON FOR VISIT New Refill Request Medications Medication SIG (Take, Route, Frequency, Duration) Notes Start Date End Date Status Atorvastatin Calcium 20 MG 1 tablet Oral ly Once a day for 90 days 04/30/2024 Active Warfarin Sodium 5 MG 2 tabs Orally Once a day for 90 days Active Encounters Encounter Location Date Provider Diagnosis Lennox Tsang MD [address] [place] [address] [place] [address] [phone] 01/28/2025 Lennox Tsang Hypercholesteremia E 78.00 Assessments Encounter Date Diagnosis (ICD Code) Assessment Notes Treatment Notes Treatment Clinical Notes Section Notes 01/28/2025 Hypercholesteremia (ICD-10 - E78.00) Plan Of Treatment Medication Medication Name Sig Start Date Stop Date Notes Atorvastatin Calcium 20 MG 1 tablet Oral ly Once a day for 90 days 04/30/2024 Warfarin Sodium 5 MG 2 tabs Orally Once a day for 90 days Next Appt Details Provider Name:Lennox white, 10/28/2025 07:30:00 AM, [address] [place] [address], [address], [phone], Provider Name:Lennox white, 11/04/2025 03:00:00 PM, [address] [place] [address], [address], [phone], Provider Name:Lennox Reyes ier, 04/28/2026 07:15:00 AM, [address], [address], PATRICIA Randhawa, [phone], Provider Name:Lennox Reyes ier, 05/05/2026 03:15:00 PM, [address] [facility], [address], [place]IA [place], [phone], Progress Notes * Ian HANOB:1975 (49 yo M)Acc No.[id number]:01/28/2025 Patient: Rob Armen CURRIE :1975 A ge:49 Y S ex:Male Address:[address] [place] [phone] * Refills Refill Atorvastatin Calcium Tablet, 20 MG, Orally, 90 Tablet, 1 tablet, Once a day, 90 days, Refills=3 Refill Warfarin Sodium Tablet, 5 MG, Orally, 180 Tablet, 2 tabs, Once a day, 90 days, Refills=4 * true * Date: Generated for Gabriela velazquez/Sarah/Nahid on: 06:00 PM EST
--- OUTSIDE RECORDS SUMMARY | 2025-01-28 04:36 | XMS_ITS ---
Author Organization Lennox Tsang MD Address [address] [place] [address] [place] [address] [phone] Care Team Providers Care Die Operator Name Role Phone Lennox Tsang Primary Care Provider [phone] REASON FOR VISIT Refill Request Encounters Encounter Location Date Provider Diagnosis Lennox Tsang MD [address] [place] [address] [place] [phone] 01/28/2025 Lennox Tsang Plan Of Treatment Next Appt Details Provider Name:Lennox white, 10/28/2025 07:30:00 AM, [address] [place] [address], [address] [place] [address], [phone], Provider Name:Lennox white, 11/04/2025 03:00:00 PM, [address] [place] [address], [address], [phone], Provider Name:Lennox drummondr, 04/28/2026 07:15:00 AM, [address] [place] [address], [address], [phone], Provider Name:Lennox white, 05/05/2026 03:15:00 PM, [address] [place] [address], [address], [phone], Progress Notes * Steve HAN:1975 (49 yo M)Acc No.[id number]:01/28/2025 Patient: Armen HAWKINS :1975 A ge:49 Y S ex:Male Address:[address] [place] [address] * true * Date: Generated for Gabriela velazquez/Sarah/Mariaelenasmitting on: 06:00 PM EST
--- OUTSIDE RECORDS SUMMARY | 2025-02-06 23:45 | XMS_ITS ---
Author Organization Lennox Tsang MD Address [address] [place] [address] [place] [phone] Care Team Providers Care Loan Counselor Name Role Phone Lennox Tsang Primary Care Provider REASON FOR VISIT 6 MO F/U Encounters Encounter Location Date Provider Diagnosis Lennox Tsang MD [address] [place] [address] [place] [phone] 02/07/2025 Lennox Tsang Plan Of Treatment Next Appt Details Provider Name:Lennox white, 10/28/2025 07:30:00 AM, [address] [place] [address], [address] [place] [address], [phone], Provider Name:Lennox white, 11/04/2025 03:00:00 PM, [address] [place] [address], [address], [phone], Provider Name:Lennox Reyes ier, 04/28/2026 07:15:00 AM, [address] [place] [address], [address], [phone], Provider Name:Lennox white, 05/05/2026 03:15:00 PM, [address] [place] [address], [address], [phone], Progress Notes * Steve HAN:1975 (50 yo M)Acc No.[id number]:02/07/2025 Progress Notes Patient: Armen HAWKINS Provider: Remy Tsang MD :1975 A ge:50 Y S ex:Male Date:02/07/2025 Address:[address] [place], [place] [phone] Subjective: * Chief Complaints: * 1 . [...] 0 02/07/2025 Generated for Gabriela velazquez/Sarah/Annabellaitting on: 06:02 PM EST
--- OUTSIDE RECORDS SUMMARY | 2025-03-22 02:48 | XMS_ITS ---
Author Organization Lennox Tsang MD Address [address] [facility] [address] [place] [phone] Care Team Providers Care Tailor'S Aide Name Role Phone Lennox Tsang Primary Care Provider REASON FOR VISIT Metformin Medications Medication SIG (Take, Route, Fr equency, Duration) Notes Start Date End Date Status metFORMIN HCl 500 MG 2tablet with a meal Orally twice a day for 90 days Active Encounters Encounter Location Date Provider Diagnosis Lennox Tsang MD [address] [place] [address] [address] [place] [phone] 03/22/2025 Lennox Tsang Plan Of Treatment Medication Medication Name Sig Start Date Stop Date Notes metFORMIN HCl 500 MG 2tablet with a meal Orally twice a day for 90 days Next Appt Details Provider Name:Lennox white, 10/28/2025 07:30:00 AM, [address] [place] [address], [address], [phone], Provider Name:Lennox white, 11/04/2025 03:00:00 PM, [address] [place] [address], [address], [phone], Provider Name:Lennox white, 04/28/2026 07:15:00 AM, [address] [place] [address], [address], [phone], Provider Name:Lennox white, 05/05/2026 03:15:00 PM, [address] [place] [address], [address], [place], [place], [phone], Progress Notes * Ian HANOB:1975 (50 yo M)Acc No.[id number]:03/22/2025 Patient: Armen HAWKINS :1975 A ge:50 Y S ex:Male Address:[address] [place] [address], [facility] [address], [place] [address] * Refills Refill metFORMIN HCl Tablet, 500 MG, Orally, 360 Tablet, 2tablet with a meal, twice a day, 90 days, Refills=3 * true * Date: Generated for Gabriela velazquez/Sarah/Annabellaitting on: 06:02 PM EST
--- OUTSIDE RECORDS SUMMARY | 2025-04-24 09:00 | XMS_ITS ---
Author Organization Lennox Tsang MD Address [address] [place] [address] [place] [phone] Care Team Providers Care Checking Clerk Name Role Phone Lennox Tsang Primary Care Provider REASON FOR VISIT Lab Work Encounters Encounter Location Date Provider Diagnosis Lennox Tsang MD [address] [place] [address] [place] [phone] 04/24/2025 Lennox Tsang Plan Of Treatment Next Appt Details Provider Name:Lennox white, 10/28/2025 07:30:00 AM, [address] [place] [address], [address] [place] [address], [phone], Provider Name:Lennox white, 11/04/2025 03:00:00 PM, [address] [place] [address], [address], [phone], Provider Name:Lennox white, 04/28/2026 07:15:00 AM, [address] [place] [address], [address], [phone], Provider Name:Lennox white, 05/05/2026 03:15:00 PM, [address] [place] [address], [address], [phone], Progress Notes * Ian HANOB:1975 (50 yo M)Acc No.[id number]:04/24/2025 Patient: Armen HAWKINS :1975 A ge:50 Y S ex:Male Address:[address] [place] [id number] * true * Date: Generated for Gabriela velazquez/Sarah/Mariaelenasmitting on: 06:00 PM EST
--- OUTSIDE RECORDS SUMMARY | 2025-04-26 02:00 | XMS_ITS ---
Author Organization Lennox Tsang MD Address [address] [place], [place] [phone] Care Team Providers Care Punch Box Tender Name Role Phone Lennox Tsang Primary Care Provider Results Component Value Reference Range Notes Complete Blood Count Auto Di ff Reviewed date:04/26/2025 06:43:11 PM Interpretation: Performing Lab:[facility], [address] [place] [phone] Notes/Report: White Blood Count 11.8 4.8-10.8 X10*3/uL Red Blood Count 4.28 4.60-5.80 X10*6/uL Hemoglobin 12.4 14.0-18.0 g/dl Hematocrit 37.9 42.0-52.0 % Mean Corpuscular Volume 88.6 80.0-98.0 fL Mean Corpuscular Hemoglobin 29.0 27.0-33.0 pg Mean Corpuscular HGB Conc 32.7 31.0-36.0 g/dl Red Cell Distribution Width 14.5 11.0-16.0 % Platelet Count 290 160-400 X10*3/uL Mean Platelet Volume 11.0 9.4-12.4 fL Neutrophils Percent Auto 73.7 45-73 % Imm Gran Pct Auto 2.3 0.0-0.4 % Lymphocytes Percent Auto 13.2 20-40 % Monocytes Percent Auto 7.0 2-11 % Eosinophils Percent Auto 3.1 0-4 % Basophils Percent Auto 0.7 0-2 % NRBC Pct Auto 0.0 0.0-0.2 /100WBC Neutrophils Absolute Auto 8.7 2.0-8.3 x10*3/u L Imm Gran Abs Auto 0.27 0.00-0.03 X10*3/uL Lymphocytes Absolute Auto 1.6 1.2-4.9 X10*3/u L Monocytes Absolute Auto 0.8 0.1-1.2 X10*3/uL Eosinophils Absolute Auto 0.4 0.0-0.4 X10*3/u L Basophils Absolute Auto 0.1 0.0-0.2 X10*3/uL NRBC Abs Auto 0.000 0.0-0.012 X10*3/uL Comprehensive [place]. Panel Fa st Reviewed date:04/26/2025 06:37:41 PM Interpretation: Performing Lab:[address] [address] Notes/Report: Sodium 137 135-145 mmol/L Potassium 4.4 3.3-5.1 mmol/L Slight Hemoly sis.Interpret result with caution. Chloride 99 96-108 mmol/L Carbon Dioxide 26 22-29 mmol/L Anion Gap 16 12-20 Blood Urea Nitrogen 23 9-16 mg/dL Creatinine 1.40 0.5-1.4 mg/dL Estimated Glomerular Filt Rate 54 Chronic Kidney Disease: Estimated GFR < 60 mL/min/1.73m2 Severe Kidney Disease: Estimated GFR < 15 mL/min/1.73m2 Glucose Fasting 124 60-99 mg/dL A fasting glucose from 100-125 mg/dl is considered impaired (pre-diabetes). Calcium 9.9 8.4-10.2 mg/dL Bilirubin Total 0.2 0.0-1.0 mg/dL Aspartate Amino Transferase 44 5-37 U/L Slight Hemolysis.Interpret result with caution. Alanine Aminotransferase 34 0-40 U/L Total Protein 8.0 6.5-8.0 g/dL Albumin Level 4.9 3.5-5.0 g/dL Alkaline Phosphatase 88 39-117 U/L Lipid Panel Reviewed date:04/26/2025 12:24:43 PM Interpretation: Performing Lab:[facility], [address] [place] [phone] Notes/Report: Triglycerides 285 <150 mg/dL Slight Lipemia. Desirable Triglyceride: less than 150 mg/dL Borderline High Triglyceride 150-199 mg/dL High Triglyceride: 200-499 mg/dL Very High Triglyceride: greater than or equal to 5OO mg/dL Cholesterol 172 <200 mg/dL Desirable Cholesterol: less than 200 mg/dL Borderline High Cholesterol: 200-239 mg/dL High Cholesterol: greater than 239 mg/dL LDL Cholesterol Calculated 78 <100 mg/dL Desirable LDL: less than 100 mg/dL Near Optimal/Above Optimal LDL: 110-129 mg/dL Borderline High LDL: 130-159 mg/dL High LDL: 160-189 mg/dL Very High LDL: greater than or equal to 190 mg/dL HDL Cholesterol 37 >40 mg/dL Desirable HDL: greater than 40 mg/dL Note: This HDL assay may give artificially low results in patients with liver disease. PSA,Total (Free>4and<10) Reviewed date:04/26/2025 06:37:49 PM Interpretation: Performing Lab:[facility], [address] [place] [phone] Notes/Report: PSA,Total (Free>4and<10) 0.31 0.00-4.00 ng/mL A Free PSA was not [...] Chemiluminescent Microparticle Immunoassay (CMIA) Microalbumin, Random Reviewed date:04/26/2025 12:37:54 PM Interpretation: Performing Lab:[facility], [address] [place] [phone] Notes/Report: Creatinine Urine 160.53 Microalbumin Urine 58.0 Microalbum/Creatinine Ratio Ur 36.1 <30 ug/mg cr Albumin/Creatinine Ratio Reference Ranges: Normal: < 30 ug/mg creatinine Microalbuminuria: 30 - 300 ug/mg creatinine Clinical Albuminuria: > 300 ug/mg creatinine Hemoglobin A1c Reviewed date:04/26/2025 12:14:03 PM Interpretation: Performing Lab:[facility], [address] [place] [phone] Notes/Report: Hemoglobin A1c % 6.7 <6.0 % Hemoglobin A1C Reference Range Adults: 4.8 - 6.0 % Non diabetic: < 6.0 % Goal: < 7.0 % Additional Action Suggested: > 8.0 % Note: Hemoglobin A1c results are invalid for patients with abnormal amounts of HbF. Blood transfusions may impact the HbA1c concentration in the patient sample. Estimated Average Glucose 146 eAG = Estimated average glucose which is %A1C expressed as average glucose, using the formula of the [id number] Average Glucose study (ADAG), Diabetes Care, Vol.31,#8, Dec. 2007 UA ClnCatch+Micro w/rflx Cul t Reviewed date:04/26/2025 12:25:03 PM Interpretation: Performing Lab:[facility], [address] [place] [phone] Notes/Report: Urine, Clean Catch Color Urine Yellow Appearance Urine Clear PH 5.5 5.0-9.0 Glucose Urine UA Negative Negative mg/dL Urine Blood Negative Negative Specific [place] - Urine 1.015 1.005-1.025 Urine Protein Trace Neg-Trace mg/dL Urine Ketones Trace Negative mg/dL Nitrite Urine Negative Negative Leukocyte Esterase Urine Negative Negative RBC Urine 0-2 0-2 /HPF WBC Urine 0-5 0-5 /HPF Squamous Epithelial Cell Urine 0-2 0-2 /HPF Bacteria Urine None Seen None Seen Hyaline Casts Urine 3-5 0-2 /LPF REASON FOR VISIT FASTING LABS Encounters Encounter Location Date Provider Diagnosis Lennox Tsang MD [address] [place] [address] Drive [address] [place], [place] [phone] 04/26/2025 Lennox Tsang Blood tests for rout [...] insulin (ICD-10 - E11.9) Plan Of Treatment Next Appt Details Provider Name:Lennox Reyes ier, 10/28/2025 07:30:00 AM, [address] [place] [address], Suite [facility], [place], [place], [phone], Provider Name:Lennox Reyes ier, 11/04/2025 03:00:00 PM, [address] [place] [address], Suite [facility], [place], [place], [phone], Provider Name:Lennox Reyes ier, 04/28/2026 07:15:00 AM, [address] [place] [address], Suite [facility], [place], [place], [phone], Provider Name:Lennox Reyes ier, 05/05/2026 03:15:00 PM, [address] [place] [address], Suite [facility], [place], [place], [phone], Progress Notes * Magen HANJenOB:1975 (50 yo M)Acc No.[id number]:04/26/2025 Progress Note Patient: Armen HAWKINS Provider: Remy Tsang MD :1975 A ge:50 Y S ex:Male Date:04/26/2025 Address:[address] [place], [place] [phone] Subjective: * Chief Complaints: * 1 . [...] L AB: Complete Blood Count Auto Diff (Collection Date & Time - 04/26/2025 07:00 AM) L AB: Comprehensive [place]. Panel Fast (Collection Date & Time - 04/26/2025 07:00 AM) L AB: Lipid Panel (Collection Date & Time - 04/26/2025 07:00 AM) L AB: PSA,Total (Free>4and<10) (Collection Date & Time - 04/26/2025 07:00 AM) L AB: Microalbumin, Random (Collection Date & Time - 04/26/2025 07:00 AM) L AB: Hemoglobin A1c (Collection Date & Time - 04/26/2025 07:00 AM) L AB: UA ClnCatch+Micro w/rflx Cult (Collection Date & Time - 04/26/2025 07:00 AM) 3. H ypercholesteremia L AB: Complete Blood Count Auto Diff (Collection Date & Time - 04/26/2025 07:00 AM) L AB: Comprehensive [place]. Panel Fast (Collection Date & Time - 04/26/2025 07:00 AM) L AB: Lipid Panel (Collection Date & Time - 04/26/2025 07:00 AM) L AB: PSA,Total (Free>4and<10) (Collection Date & Time - 04/26/2025 07:00 AM) L AB: Microalbumin, Random (Collection Date & Time - 04/26/2025 07:00 AM) L AB: Hemoglobin A1c (Collection Date & Time - 04/26/2025 07:00 AM) L AB: UA ClnCatch+Micro w/rflx Cult (Collection Date & Time - 04/26/2025 07:00 AM) 4. T ype 2 diabetes mellitus without complication, without long-term current use of insulin L AB: Complete Blood Count Auto Diff (Collection Date & Time - 04/26/2025 07:00 AM) L AB: Comprehensive [place]. Panel Fast (Collection Date & Time - 04/26/2025 07:00 AM) L AB: Lipid Panel (Collection Date & Time - 04/26/2025 07:00 AM) L AB: PSA,Total (Free>4and<10) (Collection Date & Time - 04/26/2025 07:00 AM) L AB: Microalbumin, Random (Collection Date & Time - 04/26/2025 07:00 AM) L AB: Hemoglobin A1c (Collection Date & Time - 04/26/2025 07:00 AM) L AB: UA ClnCatch+Micro w/rflx Cult (Collection Date & Time - 04/26/2025 07:00 AM) * Procedure Codes: 3 6415 VENIPUNCT, ROUTINE* * * The named appointment provid er may or may not be the originator of this progress note, and it is not deemed complete until electronically signed by the appointment provider. Sign off status: Pending * Provider: Remy Tsang MD Date: 1 06/27/2024 Generated for Gabriela velazquez/Sarah/Annabellaitting on: 06:02 PM EST
--- OUTSIDE RECORDS SUMMARY | 2025-04-26 02:33 | XMS_ITS ---
Author Organization Lennox Tsang MD Address [address] [place] [address] [place] [phone] Care Team Providers Care Picture Engraver Name Role Phone Lennox Tsang Primary Care Provider [phone] REASON FOR VISIT RE:Lab Work Encounters Encounter Location Date Provider Diagnosis Lennox Tsang MD [address] [place] [address] [place] [phone] 04/26/2025 Lennox Tsang Plan Of Treatment Next Appt Details Provider Name:Lennox white, 10/28/2025 07:30:00 AM, [address] [place] [address], [address], [phone], Provider Name:Lennox white, 11/04/2025 03:00:00 PM, [address] [place] [address], [address], [phone], Provider Name:Lennox white, 04/28/2026 07:15:00 AM, [address] [place] [address], [address], [phone], Provider Name:Lennox white, 05/05/2026 03:15:00 PM, [address] [place] [address], [address], [phone], Progress Notes * Steve HAN:1975 (50 yo M)Acc No.[id number]:04/26/2025 Patient: Armen HAWKINS :1975 A ge:50 Y S ex:Male Address:[address] [place] [address] * true * Date: Generated for Gabriela velazquez/Sarah/Mariaelenasmitting on: 06:01 PM EST
--- OUTSIDE RECORDS SUMMARY | 2025-05-03 09:30 | XMS_ITS ---
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 Name Role Phone Lennox Tsang Primary Care [...] kg/m2 05/03/2025 weight is down 3 pounds [facility] e 08-06-24 Encounters Encounter Location Date Provider Diagnosis Lennox Tsang MD [address] [place] [address] [place] [phone] 05/03/2025 Lennox Tsang Type 2 diabetes jaylene [...] regiment Adult general medical examination labs r bertaiewed and discussed with patient Fatty liver is on diet, will con tinue to monitor Chronic systolic congestive heart failur e stable on diuretics, will continue current regiment Colon cancer screening guaiac negative Depression screen negative screen Next Appt Details Follow Up: 6 Months, Reason: Provider Name:Lennox white, 10/28/2025 07:30:00 AM, [address] [place] [address], [address], [phone], Provider Name:Lennox white, 11/04/2025 03:00:00 PM, [address] [place] [address], [address], [phone], Provider Name:Lennox white, 04/28/2026 07:15:00 AM, [address] [place] [address], [address], [phone], Provider Name:Lennox white, 05/05/2026 03:15:00 PM, [address] [place] [address], [address], [phone], Progress Notes * Ian HANOB:1975 (50 yo M)Acc No.[id number]:05/03/2025 Progress Notes Patient: Armen HAWKINS Provider: Remy Tsang MD :1975 A ge:50 Y S ex:Male Date:05/03/2025 Address:[address] [place], [place] [phone] Subjective: * Chief Complaints: * A NNUAL EXAM * HPI: D epression Screening: PHQ-9 L [...] d enies. H eadache?denies. * Medical History: * Surgical History: * Hospitalization/Major Diagno stic Procedure: * Family History: F ather: alive 67 [...] works full-time. Pets: none. * Medications: T akingDiprolene AF 0.05 % Cream 1 application Externally Once a day Colchicine 0.6 MG Tablet TAKE ONE TABLET TWO TIMES A DAY Albuterol Sulfate HFA 108 (90 Base) MCG/ACT Aerosol Solution 1 puff as needed Inhalation every 4 hrs Spironolactone 100 MG Tablet 1 tablet Orally BID Torsemide 20 MG Tablet 2 tabs Q AM Orally Metoprolol Succinate ER 50 MG Tablet Extended Release 24 Hour 50mg Orally Once a day Allopurinol 300 MG Tablet TAKE ONE TABLET BY MOUTH ONCE DAILY Atorvastatin Calcium 20 MG Tablet 1 tablet Orally Once a day Warfarin Sodium 5 MG Tablet 2 tabs Orally Once a day metFORMIN HCl 500 MG Tablet 2tablet with a meal Orally twice a day Taking Diprolene AF 0.05 % Cream 1 application Externally Once a day Taking Colchicine 0.6 MG Tablet TAKE ONE TABLET TWO TIMES A DAY Taking Albuterol Sulfate HFA 108 (90 Base) MCG/ACT Aerosol Solution 1 puff as needed Inhalation every 4 hrs Taking Spironolactone 100 MG Tablet 1 tablet Orally BID Taking Torsemide 20 MG Tablet 2 tabs Q AM Orally Taking Metoprolol Succinate ER 50 MG Tablet Extended Release 24 Hour 50mg Orally Once a day Taking Allopurinol 300 MG Tablet TAKE ONE TABLET BY MOUTH ONCE DAILY Taking Atorvastatin Calcium 20 MG Tablet 1 tablet Orally Once a day Taking Warfarin Sodium 5 MG Tablet 2 tabs Orally Once a day Taking metFORMIN HCl 500 MG Tablet 2tablet with a meal Orally twice a day Not-Taking/PRNCelecoxib 200 MG Capsule 1 capsule with [...] mg/dL Urine Blood Negative Negative - Specific [place] - Urine 1.015 1.005-1.025 - Urine Protein [...] Urine 3-5 0-2 - /LPF L ab:Comprehensive [place]. Panel Fast (Order Date - 04/26/2025) (Collection [...] true * Provider: Remy Tsang MD Date: 07/04/2024 Generated for Gabriela velazquez/Sarah/Annabellaitting on: 06:00 PM EST History and Physical Notes * [...] had two or more falls in the st year?: No Communication Needs Communication Needs Does [...]
--- OUTSIDE RECORDS SUMMARY | 2025-05-17 23:59 | XMS_ITS | Continuity of Care Document ---
Author Organization [facility] Address [address] [place] [address] Care Team Providers Care High School Vice Principal Name Role Phone Sharan DIAZ, Lenn[place] Primary Care Physician [phone] Encounter [facility] Date(s): 04/17/25 - 05/17/25 [facility] [address] [place] [address] Encounter Type: Triage Allergies, Adverse [...] 0 Refills, Maintenance, 05/14/20 9:28:00 AM EST, [facility]/pharmacy #[id number], Partial fill upon patient request if [...] 3:28:00 PM EST, Route to Pharmacy Electronically, [facility] 3, Partial fill upon patient request [...] Maintenance, 04/03/20 3:12:00 PM EST, ER Capsule, [facility] 3, Partial fill upon patient request, [...] Instructions, 10 mg by mouth every mon, tue, tue. 7.5 mg by mouth on other days (Sun, , Th, Sat), 0 Refills, Maintenance, 05/27/22 7:42:00 [...] Position: Reference Physician Member Role: PCP Address: [address] [place] [address] Lennox Tsang [place], [place] [address] Telecom: [phone] Name: Preet Valenzuela DO Position: [facility] Renal MD Member Role: Lifetime Consulting Physician Address: [address] [place], [place] [address] [place], [place] [address] Telecom: Name: Mishel Hogan RN Position: [facility] RN Member Role: Primary Care Nurse Name: Becka Masters RN Position: [facility] Onco RN Member Role: Primary Care Nurse Name: Naya Willson RN Position: [facility] RN Member Role: Primary Care Nurse Care Team Related Persons Name: RUDDY HAN Name: PITER HAN Insurance Providers Guarantor name: SARINA HAN Health Plan Information #: 1 Payer: [employer] PPO Payer Identifier: EDMUND Member Number: [id number] Group Number: [id number] Subscriber Identifier: EDMUND Relationship to Subscriber: self Coverage Type: Other Private Insurance Coverage Verification Date: NA Telecom: NA Address: NA
[2025-05-20 16:38] LABS: Prothrombin Time Whole Bld POC 50.7 sec (11.1-13.5); ~PT, ~INR - Anti Coag Clinic 4.2 (0.9-1.1)
--- NOTE | 2025-05-20 16:43 | MHC.OFFVISCO ---
Intake Intake Visit Reasons: Anticoagulation Allergies No Known Allergies Allergy (Verified 05/03/25 15:10) Medication List - Last Reconciled 05/20/25 by Mishel Logan RN albuterol sulfate 90 mcg/actuation 0 mcg inhalation allopurinol 300 mg PO DAILY atorvastatin 20 mg PO QPM colchicine 0.6 mg PO BID PRN metformin ER 1,000 mg PO BID metolazone mg PO metoprolol succinate ER 50 mg PO DAILY spironolactone 100 mg PO BID torsemide 40 mg PO DAILY [VITAMIN D 3 PO] warfarin 5 mg See Protocol PO DAILY Nursing Note INR: 4.2 out of therapeutic range s/p Holiday and recovering from parathyroid surgery, plus eating less greens Medications and supplements reviewed No changes in health, diet, medications, or supplements, Denies any signs and symptoms of bleeding or bruising or clotting. Bleeding, bruising, clotting discussed Nutritional guidance given - resume weekly greens Dose: decrease dose today 5mg today and 5mg tomorrow F/U INR: 05/29/2025 Patient verbalizes understanding of instructions given Anti-Coag Initial Assessment Social Hx Patient Tobacco Use Status: Never used Tobacco Coding Level of Care Code Est Patient Level 1 Diagnoses Current use of anticoagulant therapy Z79.01 Results AMB INR Fingerstick AMB INR Fingerstick 4.2 Last Edit by Mishel Logan RN on 05/20/25 16:38 MANUAL ENTRY Assessment & Plan Assessment & Plan (1) Current use of anticoagulant therapy: Code(s): Z79.01 - longterm (current) use of anticoagulants Category: Medical
--- OUTSIDE RECORDS SUMMARY | 2025-05-20 18:02 | XMS_ITS | Encounter Summary ---
Author Organization [facility] Address [address] [place] [address] Phone Care Team Providers Care Mattress Filler Name Role Phone Lennox Tsang MD Primary Care Provider Encounter Details Date Type Department Care Team (Late st Contact Info) Description 07/13/2024 Orders Only [facility] [address] [place] [address] Preet Valenzuela DO [address] [facility] [place] [address] Hypokalemia; Heart failure with normal [...] Visit [facility] [address] [place] [address] Preet Valenzuela DO [address] [facility] [place] [address] documented as of this encounter Visit Diagnoses Diagnosis Hypokalemia Heart failure with normal ejection fraction (HCC) Hypercalcemia documented in this encounter Care Teams Mattress Filler Relationship Specialty Start Date End Date Lennox Tsang MD [address] [place] [address] [id number] [place] PCP - General Internal Medicine 08/09/22 documented as of this encounter
--- OUTSIDE RECORDS SUMMARY | 2025-05-20 18:02 | XMS_ITS | Encounter Summary ---
Author Organization [facility] Address [address] [place] [address] Phone Care Team Providers Care Mallet Cutter Name Role Phone Lennox Tsang MD Primary Care Provider [phone]- [phone] Encounter Details Date Type Department Care Team (Late st Contact Info) Description 09/21/2023 Documentation Only [facility] [address] [place] [address] Preet Valenzuela DO [address] [place] [address] Social History Tobacco Use Types [...] [facility] [address] [place] [address] Preet Valenzuela DO [address] [place] [address] documented as of this encounter Visit Diagnoses Not on filedocumented in this encounter Care Teams Mallet Cutter Relationship Specialty Start Date End Date Lennox Tsang MD [address] [place], [place] PCP - General Internal Medicine 08/09/22 documented as of this encounter
--- OUTSIDE RECORDS SUMMARY | 2025-05-20 18:02 | XMS_ITS | Encounter Summary ---
Author Organization [facility] Address [address] [place] [address] Phone Care Team Providers Care Automatic Fabric Cutter Name Role Phone Lennox Tsang MD Primary Care Provider [phone]- [phone] Encounter Details Date Type Department Care Team (Late st Contact Info) Description 09/01/2023 Documentation Only [facility] [address] [place] [address] Preet Valenzuela DO [address] [place] [address] Social History Tobacco Use Types [...] [facility] [address] [place] [address] Preet Valenzuela DO [address] [place] [place] [address] documented as of this encounter Visit Diagnoses Not on filedocumented in this encounter Care Teams Automatic Fabric Cutter Relationship Specialty Start Date End Date Lennox Tsang MD [address] [place], [place] PCP - General Internal Medicine 08/09/22 documented as of this encounter
--- OUTSIDE RECORDS SUMMARY | 2025-05-20 18:02 | XMS_ITS | Patient Health Record ---
Author Organization Lennox Tsang MD Address [address] [place], [place] [id number] Care Team Providers Care Way Inspector Name Role Phone Lennox Tsang Primary Care Provider Allergies Allergen (clinical drug ingredient) Drug/Non Drug Allergy documented on EMR Reaction Allergy Type Onset Date Status ibuprofen Ibuprofen bleeding Drug Allergy Active Results Component Value Reference Range Notes Liver Panel Reviewed date:07/30/2024 06:02:36 PM Interpretation: Performing Lab:[facility], [address] [place] [phone] Notes/Report: Bilirubin Total 0.7 0.0-1.0 mg/dL Bilirubin Direct 0.2 0.0-0.5 mg/dL Aspartate Amino Transferase 29 5-37 U/L Alanine Aminotransferase 32 0-40 U/L Total Protein 7.8 6.5-8.0 g/dL Albumin Level 4.2 3.5-5.0 g/dL Alkaline Phosphatase 91 39-117 U/L Blood Urea Nitrogen Reviewed date:07/30/2024 06:02:51 PM Interpretation: Performing Lab:[facility], [address] [place] [phone] Notes/Report: Blood Urea Nitrogen 27 9-16 mg/dL Creatinine Reviewed date:07/30/2024 06:02:43 PM Interpretation: Performing Lab:[facility], [address] [place] [phone] Notes/Report: Creatinine 1.25 0.5-1.4 mg/dL Estimated Glomerular Filt Rate > 60 Chronic Kidney Disease: Estimated GFR < 60 mL/min/1.73m2 Severe Kidney Disease: Estimated GFR < 15 mL/min/1.73m2 Lipid Panel Reviewed date:07/30/2024 06:02:22 PM Interpretation: Performing Lab:[facility], [address] [place] [phone] Notes/Report: Triglycerides 217 <150 mg/dL Desirable Triglyceride: [...] Panel Reviewed date:11/02/2024 12:41:22 PM Interpretation: Performing Lab:[facility], [address] [place] [phone] Notes/Report: Bilirubin Total 0.6 0.0-1.0 mg/dL Bilirubin Direct 0.2 0.0-0.5 mg/dL Aspartate Amino Transferase 45 5-37 U/L Slight Hemolysis.Interpret result with caution. Alanine Aminotransferase 31 0-40 U/L Total Protein 8.1 6.5-8.0 g/dL Albumin Level 4.9 3.5-5.0 g/dL Alkaline Phosphatase 85 39-117 U/L Lipid Panel with Reflex Reviewed date:11/02/2024 12:41:04 PM Interpretation: Performing Lab:[facility], [address] [place] [address] Notes/Report: Triglycerides 176 <150 mg/dL Desirable Triglyceride: [...] ff Reviewed date:04/26/2025 06:43:11 PM Interpretation: Performing Lab:[facility], [address] [place] [phone] Notes/Report: White Blood Count 11.8 4.8-10.8 X10*3/uL [...] NRBC Abs Auto 0.000 0.0-0.012 X10*3/uL Comprehensive Wagoner. Panel Fa st Reviewed date:04/26/2025 06:37:41 PM Interpretation: Performing Lab:[facility], [address] [place] [phone] Notes/Report: Sodium 137 135-145 mmol/L Potassium 4.4 [...] Panel Reviewed date:04/26/2025 12:24:43 PM Interpretation: Performing Lab:[facility], [address] [place] [phone] Notes/Report: Triglycerides 285 <150 mg/dL Slight Lipemia. [...] (Free>4and<10) Reviewed date:04/26/2025 06:37:49 PM Interpretation: Performing Lab:[address] [address] Notes/Report: PSA,Total (Free>4and<10) 0.31 0.00-4.00 ng/mL A [...] Random Reviewed date:04/26/2025 12:37:54 PM Interpretation: Performing Lab:[address] [address] Notes/Report: Creatinine Urine 160.53 Microalbumin Urine 58.0 Microalbum/Creatinine Ratio Ur 36.1 <30 ug/mg cr Albumin/Creatinine Ratio Reference Ranges: Normal: < 30 ug/mg creatinine Microalbuminuria: 30 - 300 ug/mg creatinine Clinical Albuminuria: > 300 ug/mg creatinine Hemoglobin A1c Reviewed date:04/26/2025 12:14:03 PM Interpretation: Performing Lab:[address] [address] Notes/Report: Hemoglobin A1c % 6.7 <6.0 % [...] average glucose, using the formula of the L2H-Tvwirsh Average Glucose study (ADAG), Diabetes Care, Vol.31,#8, Dec. 2007 UA ClnCatch+Micro w/rflx Cul t Reviewed date:04/26/2025 12:25:03 PM Interpretation: Performing Lab:[facility], [address] [place] [address] Notes/Report: Urine, Clean Catch Color Urine Yellow Appearance Urine Clear PH 5.5 5.0-9.0 Glucose Urine UA Negative Negative mg/dL Urine Blood Negative Negative Specific [place] - Urine 1.015 1.005-1.025 Urine Protein Trace Neg-Trace mg/dL Urine Ketones Trace Negative mg/dL Nitrite Urine Negative Negative Leukocyte Esterase Urine Negative Negative RBC Urine 0-2 0-2 /HPF WBC Urine 0-5 0-5 /HPF Squamous Epithelial Cell Urine 0-2 0-2 /HPF Bacteria Urine None Seen None Seen Hyaline Casts Urine 3-5 0-2 /LPF XR ribs LT min 3V w CXR1V Reviewed date:05/31/2024 01:01:03 PM Interpretation:see back 05-31-2024 Performing Lab: Notes/Report: [address] [address] XRay Report Signed Patient: Armen Olson MR#: [id number] : 1975 Acct:[id number] Age/Sex: 49 / M ADM Date: 05/30/24 Loc: HO.LAB Attending Dr: Lennox Tsang MD Ordering Physician: Lennox Tsang MD Date of Service: 05/30/24 Procedure(s): XR ribs LT min 3V w CXR1V Accession Number(s): [id number] cc: Lennox Tsang MD CLINICAL HISTORY: FELL [...] in OV> 05/30/24704 DD/ 2 TD/TT: 05/30/24702 [employer]: [address] [address] XRay Report Signed Patient: Armen Olson MR #: [id number] : 1975 Acct:[id number] Age/Sex: 49 / M ADM Date: 05/30/24 Loc: HO.LAB Attending Dr: Lennox Tsang MD Ordering Physician: Lennox Tsang MD Date of Service: 05/30/24 Procedure(s): XR rib s LT min 3V w CXR1V Accession Number(s): [id number] cc: Lennox Tsang MD CLINICAL HISTORY: FE [...] in OV> 05/30/24704 DD/ 2 TD/TT: 05/30/24702 [employer]: Occult Blood, Stool, Guaiac Reviewed date:05/03/2025 03:26:51 PM Interpretation:Negative Performing Lab: Notes/Report: Negative Occult Blood, Stool, Guaiac Neg Hold Gold Reviewed date:07/30/2024 12:44:46 PM Interpretation: Performing Lab:[facility], [address] [place] [phone] Notes/Report: Hold Igor See Note Specimen held untested for 24 hours; Call to request Chemistry testing. INR WHOLE BLOOD POC Reviewed date:08/16/2024 10:45:38 AM Interpretation: Performing Lab:[facility], [address] [place] [phone] Notes/Report: PT, INR - [facility] 4.0 0.9-1.1 METER #: [id number] INTERNATIONAL NORMALIZED RATIO (INR) REFERENCE RANGES Reference [...] OC Reviewed date:08/16/2024 10:45:10 AM Interpretation: Performing Lab:[facility], [address] [place] [phone] Notes/Report: Prothrombin Time Whole Bld POC 48.1 11.1-13.5 sec INR WHOLE BLOOD POC Reviewed date:10/12/2024 12:18:05 PM Interpretation: Performing Lab:[facility], [address] [place] [phone] Notes/Report: PT, INR - [facility] 3.8 0.9-1.1 METER #: [id number] INTERNATIONAL NORMALIZED RATIO (INR) REFERENCE RANGES Reference [...] OC Reviewed date:10/12/2024 12:17:08 PM Interpretation: Performing Lab:[facility], [address] [place] [phone] Notes/Report: Prothrombin Time Whole Bld POC 45.0 11.1-13.5 sec INR WHOLE BLOOD POC Reviewed date:10/25/2024 12:36:37 PM Interpretation: Performing Lab:[facility], [address] [place] [phone] Notes/Report: PT, INR - [facility] 3.8 0.9-1.1 METER #: [id number] INTERNATIONAL NORMALIZED RATIO (INR) REFERENCE RANGES Reference [...] OC Reviewed date:10/25/2024 12:38:11 PM Interpretation: Performing Lab:[facility], [address] [place] [phone] Notes/Report: Prothrombin Time Whole Bld POC 45.1 11.1-13.5 sec Hold Gold Reviewed date:11/02/2024 12:40:55 PM Interpretation: Performing Lab:[facility], [address] [place] [phone] Notes/Report: Raudel Gold See Note Specimen held untested for 24 hours; Call to request Chemistry testing. INR WHOLE BLOOD POC Reviewed date:11/09/2024 12:09:03 PM Interpretation: Performing Lab:[facility], [address] [place] [address] Notes/Report: PT, INR - [facility] 2.5 0.9-1.1 METER #: [id number] INTERNATIONAL NORMALIZED RATIO (INR) REFERENCE RANGES Reference [...] OC Reviewed date:11/09/2024 04:30:54 PM Interpretation: Performing Lab:[facility], [address] [place] [address] Notes/Report: Prothrombin Time Whole Bld POC 29.5 11.1-13.5 sec INR WHOLE BLOOD POC Reviewed date:11/20/2024 10:24:22 AM Interpretation: Performing Lab:[facility], [address] [place] [address] Notes/Report: PT, INR - [facility] 4.1 0.9-1.1 METER #: [id number] INTERNATIONAL NORMALIZED RATIO (INR) REFERENCE RANGES Reference [...] OC Reviewed date:11/20/2024 10:24:14 AM Interpretation: Performing Lab:[facility], [address] [place] [phone] Notes/Report: Prothrombin Time Whole Bld POC 49.3 11.1-13.5 sec INR WHOLE BLOOD POC Reviewed date:12/04/2024 12:19:35 PM Interpretation: Performing Lab:[address] [phone] Notes/Report: PT, INR - [facility] 4.9 0.9-1.1 METER #: [id number] INTERNATIONAL NORMALIZED RATIO (INR) REFERENCE RANGES Reference [...] OC Reviewed date:12/04/2024 12:19:18 PM Interpretation: Performing Lab:[facility], [address] [place] [phone] Notes/Report: Prothrombin Time Whole Bld POC 58.7 11.1-13.5 sec INR WHOLE BLOOD POC Reviewed date:12/18/2024 12:43:44 PM Interpretation: Performing Lab:[facility], [address] [place] [phone] Notes/Report: PT, INR - [facility] 3.9 0.9-1.1 METER #: [id number] INTERNATIONAL NORMALIZED RATIO (INR) REFERENCE RANGES Reference [...] OC Reviewed date:12/18/2024 12:43:52 PM Interpretation: Performing Lab:[facility], [address] [place] [phone] Notes/Report: Prothrombin Time Whole Bld POC 47.0 11.1-13.5 sec INR WHOLE BLOOD POC Reviewed date:12/24/2024 04:37:33 PM Interpretation: Performing Lab:[facility], [address] [place] [phone] Notes/Report: PT, INR - [facility] 2.0 0.9-1.1 METER #: [id number] INTERNATIONAL NORMALIZED RATIO (INR) REFERENCE RANGES Reference [...] OC Reviewed date:12/24/2024 04:37:23 PM Interpretation: Performing Lab:[facility], [address] [place] [phone] Notes/Report: Prothrombin Time Whole Bld POC 24.3 11.1-13.5 sec INR WHOLE BLOOD POC Reviewed date:12/31/2024 05:48:15 PM Interpretation: Performing Lab:[facility], [address] [place] [phone] Notes/Report: PT, INR - [facility] 2.6 0.9-1.1 METER #: [id number] INTERNATIONAL NORMALIZED RATIO (INR) REFERENCE RANGES Reference [...] OC Reviewed date:12/31/2024 05:45:34 PM Interpretation: Performing Lab:[facility], [address] [place] [phone] Notes/Report: Prothrombin Time Whole Bld POC 30.8 11.1-13.5 sec INR WHOLE BLOOD POC Reviewed date:01/15/2025 02:51:48 PM Interpretation: Performing Lab:[facility], [address] [place] [phone] Notes/Report: PT, INR - [facility] 3.4 0.9-1.1 METER #: [id number] INTERNATIONAL NORMALIZED RATIO (INR) REFERENCE RANGES Reference [...] Reviewed date:01/15/2025 04:43:48 PM Interpretation: Performing Lab:[facility] [address] [phone] Notes/Report: Prothrombin Time Whole Bld POC 41.4 11.1-13.5 sec INR WHOLE BLOOD POC Reviewed date:02/04/2025 04:43:47 PM Interpretation: Performing Lab:[facility], [address] [place] [phone] Notes/Report: PT, INR - [facility] 3.3 0.9-1.1 METER #: [id number] INTERNATIONAL NORMALIZED RATIO (INR) REFERENCE RANGES Reference [...] OC Reviewed date:02/04/2025 04:43:55 PM Interpretation: Performing Lab:[facility], [address] [place] [phone] Notes/Report: Prothrombin Time Whole Bld POC 39.4 11.1-13.5 sec INR WHOLE BLOOD POC Reviewed date:02/27/2025 08:08:45 AM Interpretation: Performing Lab:[facility], [address] [place] [phone] Notes/Report: PT, INR - [facility] 2.6 0.9-1.1 METER #: [id number] INTERNATIONAL NORMALIZED RATIO (INR) REFERENCE RANGES Reference [...] OC Reviewed date:02/27/2025 08:08:37 AM Interpretation: Performing Lab:[facility], [address] [place] [phone] Notes/Report: Prothrombin Time Whole Bld POC 31.4 11.1-13.5 sec INR WHOLE BLOOD POC Reviewed date:03/19/2025 12:41:47 PM Interpretation: Performing Lab:[facility], [address] [place] [phone] Notes/Report: PT, INR - [facility] 2.9 0.9-1.1 METER #: [id number] INTERNATIONAL NORMALIZED RATIO (INR) REFERENCE RANGES Reference [...] OC Reviewed date:03/19/2025 12:41:38 PM Interpretation: Performing Lab:[facility], [address] [place] [phone] Notes/Report: Prothrombin Time Whole Bld POC 35.0 11.1-13.5 sec INR WHOLE BLOOD POC Reviewed date:04/11/2025 12:47:05 PM Interpretation: Performing Lab:[facility], [address] [place] [phone] Notes/Report: PT, INR - [facility] 3.8 0.9-1.1 METER #: [id number] INTERNATIONAL NORMALIZED RATIO (INR) REFERENCE RANGES Reference [...] OC Reviewed date:04/11/2025 12:46:47 PM Interpretation: Performing Lab:[facility], [address] [place] [phone] Notes/Report: Prothrombin Time Whole Bld POC 45.7 11.1-13.5 sec Prothrombin Time INR Reviewed date:04/20/2025 03:44:30 PM Interpretation: Performing Lab:[facility], [address] [place] [address] Notes/Report: Prothrombin Time 15.8 11.2-13.5 SEC INTERNATIONAL NORM RATIO 1.3 0.9-1.1 INTERNATIONAL NORMALIZED RATIO (INR) REFERENCE RANGES Results of INR called to [employer] on 04/19/25 at 0917 by ARABELLA. Reference [...] REFERENCE RANGES Results of INR called to [employer] on 04/19/25 at 0917 by ARABELLA. Reference [...] INR Reviewed date:04/24/2025 01:35:29 PM Interpretation: Performing Lab:[facility], [address] [place] [phone] Notes/Report: Prothrombin Time 17.9 11.2-13.5 SEC INTERNATIONAL [...] INR Reviewed date:04/26/2025 12:27:01 PM Interpretation: Performing Lab:[facility], [address] [place] [phone] Notes/Report: Prothrombin Time 21.0 11.2-13.5 SEC INTERNATIONAL [...] POC Reviewed date:04/29/2025 05:43:32 PM Interpretation: Performing Lab:[facility], [address] [place] [phone] Notes/Report: PT, INR - [facility] 2.6 0.9-1.1 METER #: [id number] INTERNATIONAL NORMALIZED RATIO (INR) REFERENCE RANGES Reference [...] OC Reviewed date:04/29/2025 05:43:23 PM Interpretation: Performing Lab:[facility], [address] [place] [address] Notes/Report: Prothrombin Time Whole Bld POC 31.1 11.1-13.5 sec INR WHOLE BLOOD POC Reviewed date:05/03/2025 05:27:10 PM Interpretation: Performing Lab:[address] [address] Notes/Report: PT, INR - [facility] 2.7 0.9-1.1 METER #: [id number] INTERNATIONAL NORMALIZED RATIO (INR) REFERENCE RANGES Reference [...] OC Reviewed date:05/03/2025 05:27:19 PM Interpretation: Performing Lab:[facility], [address] [place] [phone] Notes/Report: Prothrombin Time Whole Bld POC 31.8 11.1-13.5 sec INR WHOLE BLOOD POC Reviewed date:05/20/2025 04:48:15 PM Interpretation: Performing Lab:[address] [phone] Notes/Report: PT, INR - [facility] 4.2 0.9-1.1 METER #: [id number] INTERNATIONAL NORMALIZED RATIO (INR) REFERENCE RANGES Reference [...] Prothrombin Time Whole Bld P OC Reviewed date:05/20/2025 04:47:54 PM Interpretation: Performing Lab:[facility], [address] [place] [phone] Notes/Report: Prothrombin Time Whole Bld POC 50.7 11.1-13.5 sec Reason For Referral No Information [...] Problem Status W/U Status Risk Notes Problem 66055041 Rectal bleeding (K62.5) Active confirmed Problem Gout (13913364) Gout (M10.9) Active confirmed Problem Hypomagnesemia (115029579) Hypomagnesemia (E83.42) Active confirmed Problem Hypercalcemia (53171977) Hypercalcemia (E83.52) Active confirmed Problem 237496593 Other ascites (R18.8) Active confirme d Problem 0782193202947 Aortic valve prosthesis present (Z95.2) Active confirmed Problem 091937619 Chronic systolic congestive heart failure (I50.22) Active confirmed Problem 40627410 Obstructive slee p apnea syndrome (G47.33) Active confirmed Problem 82666317 Hyperparathyroid ism (E21.3) Active confirmed Problem 93341146 Intrinsic eczema (L20.84) Active confirmed Problem 148459216 Leukocytosis, unspecified type (D72.829) Active confirmed Problem 95691563 Arthralgia, unspecified joint (M25.50) Active confirmed Problem 50135583 Cardiac asthma (I50.1) Active confirmed Problem 750537316 Fatty liver (K76.0) Active confirmed Problem Chronic systolic heart failure (979128939) Chronic systolic CHF (congestive heart failure) (I50.22) Active confirmed Problem 35131470 Hypercholesterem ia (E78.00) Active confirmed Problem 030028738 Type 2 diabetes mellitus without complication, without long-term current use of insulin (E11.9) Active confirmed Problem 475940082 Mild intermitten t asthmatic bronchitis with acute exacerbation (J45.21) Active confirmed Problem 380311005100435 Acute drug-induc ed gout of foot, unspecified laterality (M10.279) Active confirmed Problem 464770724 Obesity (BMI 35.0-39.9 without comorbidity) (E66.9) Active [...] Diagnosis Lennox Tsang MD [address] [place] [id number] 07/30/2024 Lennox Tsang Hyperparathyroidism E21.3 Lennox Tsang MD [address] [place] [address] [id number] 11/02/2024 Lennox Tsang Hypercholesteremia E 78.00 Lennox Tsang MD [address] [place] [address] [id number] 04/26/2025 Lennox Tsang Blood tests for rout ine general physical examination Z00.00 ; Chronic systolic congestive heart failure I50.22 ; Hypercholesteremia E78.00 and Type 2 diabetes mellitus without complication, without long-term current use of insulin E11.9 Lennox Tsang MD [address] [place] [address] Drive [address] [place] [address] [id number] 05/29/2024 Lennox Tsang Fall on stairs, init ial encounter W10.9XXA and Closed fracture of one rib of left side, initial encounter S22.32XA Lennox Tsang MD [address] [place] [address] [address] [place] [address] [id number] 05/31/2024 Lennox Tsang Chronic systolic congestive heart failure I50.22 Lennox Tsang MD [address] [place] [address] [id number] 08/06/2024 Lennox Tsang Chronic systolic congestive heart failure I50.22 ; Obstructive sleep apnea syndrome G47.33 ; Aortic valve prosthesis present Z95.2 and Hypercholesteremia E78.00 Lennox Tsang MD [address] [place] [address] [id number] 05/03/2025 Lennox Tsang Type 2 diabetes jaylene itus without complication, without long-term current use of insulin E11.9 ; Adult general medical examination Z00.00 ; Fatty liver K76.0 ; Chronic systolic congestive heart failure I50.22 ; Hypercholesteremia E78.00 ; Colon cancer screening Z12.11 and Depression screen Z13.31 Lennox Tsang MD [address] [place] [address] [id number] 08/03/2024 Lennox Tsang MD [address] [place] [address] [id number] 08/06/2024 Lennox Tsang MD [address] [place] [address] [id number] 05/28/2024 Lennox Tsang MD [address] [place] [address] [id number] 05/30/2024 Lennox Tsang MD [address] [place] [address] [id number] 07/18/2024 Lennox Tsang MD [address] [place] [address] [id number] 07/20/2024 Lennox Tsang COVID-19 U07.1 Lennox Tsang MD [address] [place] [address] [id number] 07/23/2024 Lennox Tsang MD [address] [place] [address] [id number] 07/23/2024 Lennox Tsang MD [address] [place] [address] [id number] 09/10/2024 Lennox Tsang MD [address] [place] [address] [id number] 09/15/2024 Lennox Tsang MD [address] [place] [address] [id number] 01/01/2025 Lennox Tsang MD [address] [place] [address] [id number] 01/28/2025 Lennox Tsang Hypercholesteremia E 78.00 Lennox Tsang MD [address] [place] [address] [id number] 01/28/2025 Lennox Tsang MD [address] [place] [address] [id number] 03/22/2025 Lennox Tsang MD [address] [place] [address] [id number] 04/24/2025 Lennox Tsang MD [address] [place] [address] [id number] 04/26/2025 Lennox Tsang Assessments Encounter Date Diagnosis (ICD Code) Assessment Notes Treatment Notes Treatment Clinical Notes Section Notes 07/30/2024 Hyperparathyroidism (ICD-10 - E21.3) 11/02/2024 Hypercholesteremia (ICD-10 - E78.00) 04/26/[address] ine general physical examination (ICD-10 - Z00.00) 05/29/2024 Fall on stairs, init ial encounter (ICD-10 - W10.9XXA) pending diagnostic testing, order faxed to [facility] Patient Reg 05/29/2024 Closed fracture of o ne rib of left side, initial encounter (ICD-10 - S22.32XA) 05/31/2024 Chronic systolic congestive heart failure (ICD-10 - I50.22) have him take extra 20 mg of torsemide/ cxr showed question chf vers atypical pneumonia. no evidence to suggest pneumonia 08/06/2024 Chronic systolic congestive heart failure (ICD-10 - I50.22) stable, will continue current regiment 05/03/2025 Type 2 diabetes mellitus without complication, without long-term current use of insulin (ICD-10 - E11.9) doing well with good a1c, will continue current regiment 05/03/2025 Adult general medica l examination (ICD-10 - Z00.00) labs reviewed and discussed with patient 07/20/2024 COVID-19 (ICD-10 - U07.1) 01/28/2025 Hypercholesteremia (ICD-10 - E78.00) 04/26/2025 Chronic systolic congestive heart failure (ICD-10 - I50.22) 08/06/2024 Obstructive sleep ap agnieszka syndrome (ICD-10 - G47.33) using cpap 05/03/2025 Fatty liver (ICD-10 - K76.0) is on diet, will continue to monitor 04/26/2025 Hypercholesteremia (ICD-10 - E78.00) 08/06/2024 Aortic valve prosthe sis present (ICD-10 - Z95.2) has been doing well 05/03/2025 Chronic systolic congestive heart failure (ICD-10 - I50.22) stable on diuretics, will continue current regiment 04/26/2025 Type 2 diabetes mellitus without complication, without long-term current use of insulin (ICD-10 - E11.9) 08/06/2024 Hypercholesteremia (ICD-10 - E78.00) 05/03/2025 Hypercholesteremia (ICD-10 - E78.00) 05/03/2025 Colon cancer screeni ng (ICD-10 - Z12.11) guaiac negative 05/03/2025 Depression screen (ICD-10 - Z13.31) negative screen Plan Of Treatment Pending Test Test Name Order Date Electrocardiogram (EKG) 10/20/2012 Electrocardiogram (EKG) 02/10/2018 XR CHEST 2 VIEW PA & LAT 05/25/2022 Next Appt Details Provider Name:Lennox white, 10/28/2025 07:30:00 AM, [address] [place] [address], [address], [phone], Provider Name:Lennox drummondr, 11/04/2025 03:00:00 PM, [address] [place] [address], [address], [phone], Provider Name:Lennox drummondr, 04/28/2026 07:15:00 AM, [address] [place] [address], [address], [phone], Provider Name:Lennox drummondr, 05/05/2026 03:15:00 PM, [address] [place] [address], [address], [phone], Insurance Providers Payer Name Payer Address Payer Phone Subscriber Number Group Number Insured Name Patient Relationship to Insured Coverage Start Date Coverage End Date [address] [facility] [place] [phone] [id number] ; [id number] Armen Olson Self - patient is the insured Medical (General) History Medical History History ICD Code Hx of Umbilical Hernia discussed colonoscopy and he wants to wait: 11/24/22 colonoscopy tubular adenoma. repeat in 5 years Prediabetes R73.09 lovenox dose is 100 units twice a day Surgical History Surgery Date(Month/Year) aortic valve replacement 2001 cervical spine fusion
--- OUTSIDE RECORDS SUMMARY | 2025-05-20 18:02 | XMS_ITS | Encounter Summary ---
Author Organization [facility] Address [address] [place] [address] Phone Care Team Providers Care Continuous Improvement Consultant Name Role Phone Lennox Tsang MD Primary Care Provider Encounter Details Date Type Department Care Team (Late st Contact Info) Description 10/05/2024 Orders Only [facility] [address] [place] [address] Preet Valenzuela DO [address] [place] [address] Hypokalemia; Heart failure with normal [...] Visit [facility] [address] [place] [address] Preet Valenzuela DO [address] [place] [address] documented as of this encounter Visit Diagnoses Diagnosis Hypokalemia Heart failure with normal ejection fraction (HCC) Hypercalcemia documented in this encounter Care Teams Continuous Improvement Consultant Relationship Specialty Start Date End Date Lennox Tsang MD [address] [place] [address] [address] [place] PCP - General Internal Medicine 08/09/22 documented as of this encounter
--- OUTSIDE RECORDS SUMMARY | 2025-05-20 18:02 | XMS_ITS | Encounter Summary ---
Author Organization [facility] Address [address] [place] [address] Phone Care Team Providers Care Dry Food Products Mixer Name Role Phone Lennox Tsang MD Primary Care Provider Encounter Details Date Type Department Care Team (Late st Contact Info) Description 08/09/2024 Documentation Only [facility] [address] [place] [address] Preet Valenzuela DO [address] [facility] [place] [address] Social History Tobacco Use Types [...] [facility] [address] [place] [address] Preet Valenzuela DO [address] [facility] [facility] [place] [address] documented as of this encounter Visit Diagnoses Not on filedocumented in this encounter Care Teams Dry Food Products Mixer Relationship Specialty Start Date End Date Lennox Tsang MD [address] [place], [place] PCP - General Internal Medicine 08/09/22 documented as of this encounter
--- OUTSIDE RECORDS SUMMARY | 2025-05-20 18:02 | XMS_ITS | Patient Health Record ---
Author Organization [facility] Address [address] [facility] [address] [place] [address] Care Team Providers Care Guitar Maker Hand Name Role Phone Lennox Tsang Primary Care [...] Status Risk Notes Problem Atherosclerosis of artery (116161255) Arterial atherosclerosis (I70.8) Active confirmed Plan Of Treatment Pending Test Test Name Order Date EMIL 04/19/2022 Ultrasound : Artery Doppler Low Ext Bila t 04/19/2022 X ray : Foot, left 3v 04/19/2022 Insurance Providers Payer Name Payer Address Payer Phone Subscriber Number Group Number Insured Name Patient Relationship to Insured Coverage Start Date Coverage End Date [facility] [address] [place], [place] [phone] [id number] Armen Olson Self - patient is the [...]
--- OUTSIDE RECORDS SUMMARY | 2025-05-20 18:02 | XMS_ITS | Encounter Summary ---
Author Organization [facility] Address [address] [place] [address] Phone Care Team Providers Care I&C Tech Name Role Phone Lennox Tsang MD Primary Care Provider Encounter Details Date Type Department Care Team (Late st Contact Info) Description 04/20/2024 Orders Only [facility] [address] [place] [address] Preet Valenzuela DO [address] [facility] [place] [address] Hypokalemia; Heart failure with normal [...] Visit [facility] [address] [place] [address] Preet Valenzuela DO [address] [address] [place] [address] documented as of this encounter Visit Diagnoses Diagnosis Hypokalemia Heart failure with normal ejection fraction (HCC) Hypercalcemia documented in this encounter Care Teams I&C Tech Relationship Specialty Start Date End Date Lennox Tsang MD [address] [place] [address] [address] [place] PCP - General Internal Medicine 08/09/22 documented as of this encounter
--- OUTSIDE RECORDS SUMMARY | 2025-05-20 18:02 | XMS_ITS | Encounter Summary ---
Author Organization [facility] Address [address] [place] [address] Phone Care Team Providers Care Car Refinisher Name Role Phone Lennox Tsang MD Primary Care Provider Encounter Details Date Type Department Care Team (Late st Contact Info) Description 01/27/2024 Orders Only [facility] [address] [place] [address] Preet Valenzuela DO [address] [facility] [place] [address] Hypokalemia; Heart failure with normal [...] Visit [facility] [address] [place] [address] Preet Valenzuela DO [address] [facility] [place] [address] documented as of this encounter [...] Magnesium 1.6 1.6 - 2.3 mg/dL [facility] Blood specimen (specimen) Venous blood / Unknown 03/21/2024 9:00 AM EDT 03/21/2024 us Preet Valenzuela DO LAB BLOOD ORDERABLES Final Resu lt [facility] [address] [place] [address] * (ABNORMAL) Renal Function Panel (03/21/2024 9:00 AM EDT) Glucose 112(H) 70 - 99 mg/dL [facility] BUN 23 6 - 24 mg/dL [facility] Creatinine 1.23 0.76 - 1.27 mg/dL [facility] eGFR CKD-EPI CR 2020 72 >59 mL/min/1.7 3 [facility] BUN/Creatinine Ratio 19 9 - 20 [facility] Sodium 136 134 - 144 mmol/L [facility] Potassium 5.1 3.5 - 5.2 mmol/L [facility] Chloride 95(L) 96 - 106 mmol/L [facility] Bicarbonate (CO2) 21 20 - 29 mmol/L [facility] Calcium 9.7 8.7 - 10.2 mg/dL [facility] Phosphorus 2.3(L) 2.8 - 4.1 mg/dL [facility] Albumin 4.5 4.1 - 5.1 g/dL [facility] Blood specimen (specimen) Venous blood / Unknown 03/21/2024 9:00 AM EDT 03/21/2024 us Preet Valenzuela DO LAB BLOOD ORDERABLES Final Resu lt [facility] [address] [place] [phone] documented in this encounter Visit Diagnoses Diagnosis Hypokalemia Heart failure with normal ejection fraction (HCC) Hypercalcemia documented in this encounter Care Teams Car Refinisher Relationship Specialty Start Date End Date Lennox Tsang MD [address] [place] [address] [address] [place], [place] PCP - General Internal Medicine 08/09/22 documented as of this encounter
--- OUTSIDE RECORDS SUMMARY | 2025-05-20 18:02 | XMS_ITS | Clinical Summary ---
Author Organization [facility] Address [address] [place] [address] Care Team Providers Care Mice Raiser Name Role Phone Lennox Tsang MD Primary Care Provider [phone] Allergies No known active allergies Medications spironolactone [...] M, W, Th, Sat, Sun. Coumadin clinic [facility] managing INR Active atorvastatin (LIPITOR) 20 [...] Type Department Care Team Description 04/24/2025 Telephone [facility] Cardiology [facility] [address] [facility] [address] [place] [address] Rupesh Caldwell [place] 04/02/2025 Telephone [facility] [address] [facility] [address] [place] [phone] Zac Lal MD 04/01/2025 Telephone [facility] [address] [facility] [address] [place] [address] Provider, Not In System 03/26/2025 Telephone [facility] [address] [facility] [address] [place] [address] Zac Lal MD 03/22/2025 3:00 PM EDT Office Visit [facility] Dr [address] [facility] [address] [place] [address] Zac Lal MD Chronic diastolic heart failure [...] GEMUSE QTc 505 ms GEMUSE P Wave [place] 25 degrees GEMUSE R [place] 43 degrees GEMUSE T [place] -146 degrees GEMUSE ECG Interpretation Normal sinus rhythm Possible Left atrial enlargement Left bundle branch block Abnormal ECG When compared with ECG of 01-JUN-2024 08:17, No significant change was found Confirmed by Beba LAL JAMES ([id number]) on 03/22/2025 5:18:37 PM GEMUSE 03/22/2025 3:26 PM EDT 03/22/2025 5:18 PM EDT us Zac Lal MD ECG ORDERABLES Final Result GEMUSE from Last 3 Months Insurance [facility] Care Teams Mice Raiser Relationship Specialty Start Date End Date Lennox Tsang MD [address] [place] [address] [address] [place], [place] [id number] PCP - General Internal Medicine 03/22/25
--- OUTSIDE RECORDS SUMMARY | 2025-05-20 18:02 | XMS_ITS | Continuity of Care Document ---
Author Organization [place] [facility] Address [address] [place] [address] Care Team Providers Care Appeals Assistant Name Role Phone KHADIJAH GODWIN Primary Care Provider [phone] Assessment Encounter Date Assessment Date Assessment LastModified [...] Medication Orders mineral oil topical 2024 [facility] [address] [place] [address], [address], 04/26/2025 13:35:22 Patient TargetsNo targets recorded. Patient InstructionsNo instructions recorded. Reason for Referral None Reported. Problems Name Problem SNOMED Code Status Onset Date Resolution Date Notes Provider Name and Address Organization Details Recorded Time Impacted cerumen of bilateral ears 8624369897921 108 Active 2024 WENDY PATEL PA-C [address] [facility] [facility], [place], [address], [place] - [facility] [place] 5 12:06:34 Sensorineur al hearing loss of bilateral ears 482261073 Active 2024 JOHNATHON POZO, AUD [address] [facility],[place] [address], [place], [address], [place] - [facility] [place] 13:25:21 Impacted cerumen in left ear 4536487038324 101 Active 2024 WENDY PATEL PA-C [address] [facility],[place] [address], [place], [address], [facility] - [facility] [place] 15:20:29 Mass of tongue 320709059 Active 2024 Preet Gil, DO [address] [facility],[place] [address], [place], [address], [place] - [facility] [place] 5 08:52:45 Problem Notes None recorded. Procedures Surgical History Date Name Laterality Status Provider Name and Address Organization Details Recorded Time 5 Cerumen removal without microscope bilat completed EDWARD CABEZAS [place] [address] [facility],[address], [address], [place] - [facility] [place] 04/26/2025 13:55:20 5 FOL_normal_DHL completed Preet Gil DO [address] [facility],[address], [address], [facility] - [facility] [place] 02/11/2025 10:15:38 5 Comp Audio with Tymps - 51862 & 25556 completed JOHNATHON POZO, AUD [address] [facility],[address], [address], [facility] - [facility] [place] 10/23/2024 13:25:16 5 Cerumen removal without microscope left completed WENDY PATEL PA-C [address] [facility],[address], [address], [facility] - [facility] 10/23/2024 15:21:03 Cerumen removal with microscope bilateral completed WENDY PATEL PA-C [address] [facility],[place] [address], [place], [address], [facility] 10/08/2024 10:40:11 Imaging Results None recorded. Procedure Notes None recorded. Medical Equipment None Reported. Allergies Allergen ID Allergen Name Allergen Category Reaction Reaction Severity Criticality Documentation Date Start Date Code Code System Note Provider Name and Address Organization Details Recorded Time 974181 ibuprofen medicatio n Not available Not available [...] Updated DateTime 04/26/2025 162.56 cm 34.3 kg/m2 80448.47 g Agustina Reyes [place] - [facility] 04/26/2025 13:01:20 Social History Question Answer Notes LastModified by Organizat ion Details LastModified Time Tobacco Smoking Status Never Smoker Kim boyle [place] - [facility] 10/08/2024 10:14:11 What Type Of Food Checker Do You Use? None [email or web address] Information not available 10/08/2024 Do You Have Any Pets? No [email or web address] Information not available 10/08/2024 Are You Passively Exposed To Smoke? No [email or web address] Information not available 10/08/2024 Are There Any Smokers In Your House? No [email or web address] Information not available 10/08/2024 Sex: Unknown Functional Status Question Answer Note LastModified by Organization Details LastModified Time Do you use any illicit or recreational drugs? No [email or web address] Information not available 10/08/2024 Do you or have you ever used any other forms of tobacco or nicotine? No [email or web address] Information not available 10/08/2024 What is your level of alcohol consumption? None [email or web address] Information not available 10/08/2024 What is your [...] ICD10 Code Diagnosis IMO Codes Diagnosis Note 21465 SHERI SHOOK [facility] of [address] [address] 04/26/2025 12:35:17 04/26/2025 13:40:56 Impacted cerumen of bilateral ears 0584604167 354198 H61.23 473227 Will switch from hydrogen peroxide to mineral oil to better soften the wax. Health Concerns Section Related Observation LastModified by Organization Detai ls LastModified Time None Recorded Concern Status LastModified by Organization Details LastModified Time None Recorded Payers Encounter Date Sequence Insurance Name Policy Number Policy Reynaga Covered Member ID Reynaga Member ID Guarantor Name 04/26/[address] [place] [address] [id number] Armen Wesley [id number] Armen Olson Notes Date Note Type Note Provider Name and Address Organization Details Recorded Time 04/26/2025 text/html ROS as noted in the HPI 50-year-old male presents for wax removal. Patient is doing well overall with no acute concerns to report today. He uses a 50/50 hydrogen peroxide and water solution for maintenance. Hearing is stable. PREET RENTERIA MD [address] [place] [address], [phone], [facility] - [facility] 04/26/2025 17:39:45
--- OUTSIDE RECORDS SUMMARY | 2025-05-20 18:02 | XMS_ITS | Encounter Summary ---
Author Organization [facility] [place], Address [address] [place] [address] Phone Care Team Providers Care Receiver Bulk System Name Role Phone Lennox Tsang MD Primary Care Provider [phone] Encounter Details Date Type Department Care Team (Late st Contact Info) Description 08/09/2022 Documentation Only [facility] [address] [place] [address] Lennox Tsang MD [address] [place] [address] [address] [place] [address] Social History Tobacco Use Types Packs/Day Years [...] Visit [facility] [address] [place] [address] Preet Valenzuela DO [address] [facility] [place] [address] documented as of this encounter Visit Diagnoses Not on filedocumented in this encounter Care Teams Receiver Bulk System Relationship Specialty Start Date End Date Lennox Tsang MD [address] [place] [address] [address] [place] [address] PCP - General Internal Medicine 08/09/22 documented as of this encounter
--- OUTSIDE RECORDS SUMMARY | 2025-05-20 18:02 | XMS_ITS | Encounter Summary ---
Author Organization [facility] Address [address] [place] [address] Phone Care Team Providers Care Music Ministries Director Name Role Phone Lennox Tsang MD Primary Care Provider [phone] Encounter Details Date Type Department Care Team (Late st Contact Info) Description 09/21/2023 Documentation Only [facility] [address] [place] [address] Preet Valenzuela DO [address] [facility] [place] [address] Social History Tobacco Use Types [...] And [facility] [address] [place] [address] Preet Valenzuela DO [address] [facility] [place] [address] documented as of this encounter Visit Diagnoses Not on filedocumented in this encounter Care Teams Music Ministries Director Relationship Specialty Start Date End Date Lennox Tsang MD [address] [place], [place] PCP - General Internal Medicine 08/09/22 documented as of this encounter
--- OUTSIDE RECORDS SUMMARY | 2025-05-20 18:02 | XMS_ITS | Clinical Summary ---
Author Organization [facility], Address [address] [place] [address] Phone Care Team Providers Care Seasonal Package Handler Name Role Phone Lennox Tsang MD Primary [...] [facility] [address] [place] [address] Preet Valenzuela DO [address] [place] [address] Health Maintenance Due Date Last [...] Screening: Sigmoidoscopy 01/29/[address] [place] [address] [facility] Care Teams Seasonal Package Handler Relationship Specialty Start Date End Date Lennox Tsang MD [address] [place] [address] [address] [place] [address] PCP - General Internal Medicine 08/09/22
--- OUTSIDE RECORDS SUMMARY | 2025-05-20 18:02 | XMS_ITS | Data Portability ---
Author Organization [place] [facility], Allergy Address [address] [address] Care Team Providers Care Fuel Distribution System Operator Name Role Phone KHADIJAH GODWIN Primary Care [...] pursing due to limited finances. F/U PRN. [email or web address] Not available 11/15/2024 13:19:16 02/11/2025 02/11/2025 49-year-old [...] Medication Orders mineral oil topical 2024 025 [facility] ([facility]), [address] [place] [address], [place], [address], 04/26/2025 13:35:22 Patient TargetsNo targets recorded. Patient InstructionsNo instructions recorded. Reason for Referral None Reported. Results Created Date Observation Date Name Description Value Unit Range Abnormal Flag Note LastModifiedBy Organization Detail LastModifiedTime 10/24/19 audio gram No observ ation record ed. BARCODE Not Available 2024 15:37:00 02/12/20 25 11/09/2024 CT, neck, soft tissu e, w/wo contr ast No observ ation record ed. [email or web address] Not Available 01/22 10:28:57 Result Notes None recorded. Problems Name Problem SNOMED Code Status Onset Date Resolution Date Notes Provider Name and Address Organization Details Recorded Time Impacted cerumen of bilateral ears 8395432986899 108 Active 2024 WENDY PATEL PA-C 100 [facility],[address] [facility], [place], [address], [facility] 5 12:06:34 Sensorineur al hearing loss of bilateral ears 192007764 Active 2024 STEVE CARRILLO [address] [facility],[address] [facility], [place], [address], [facility] 5 13:25:21 Impacted cerumen in left ear 4809846924964 101 Active 2024 WENDY PATEL PA-C 100 [facility], [address], [place], [address], [facility] 5 15:20:29 Mass of tongue 605333291 Active 2024 Preet Gil DO [address] [facility],[address], [place], [address], [facility] 5 08:52:45 Problem Notes None recorded. Procedures Surgical History Date Name Laterality Status Provider Name and Address Organization Details Recorded Time Cerumen removal without microscope bilat completed SHERI SHOOK 100 [facility],KASSI [address], [place], [address], [facility] - [facility] 04/26/2025 13:55:20 5 FOL_normal_DHL completed Preet Gil, DO 100 [facility],[address], [address], [facility] - [facility] 02/11/2025 10:15:38 5 Comp Audio with Tymps - 44159 & 14313 completed JOHNATHON POZO, AUD 100 [facility],[address], [address], [facility] - [facility] 10/23/2024 13:25:16 5 Cerumen removal without microscope left completed WENDY PATEL PA-C 100 [facility],[address], [address], [facility] - [facility] 10/23/2024 15:21:03 5 Cerumen removal with microscope bilateral completed WENDY PATEL PA-C 100 [facility],[address], [address], [facility] - [facility] 10/08/2024 10:40:11 Imaging Results None recorded. Procedure Notes None recorded. Medical Equipment None Reported. Allergies Allergen ID Allergen Name Allergen Category Reaction Reaction Severity Criticality Documentation Date Start Date Code Code System Note Provider Name and Address Organization Details Recorded Time 135405 ibuprofen medicatio n Not available Not available [...] Address Organization Details Last Updated DateTime 10/08/2024 72442.77 g 36.7 kg/m2 162.56 cm Kim Galo [place] [facility] 10/08/2024 10:13:37 Date Recorded Body height Body mass index (BMI) Body weight Provider Name and Address Organization Details Last Updated DateTime 10/23/2024 162.56 cm 36.9 kg/m2 49863.36 g Agustina Reyes [place] [facility] 10/23/2024 13:45:09 Date Recorded Body height Body mass index (BMI) Body weight Provider Name and Address Organization Details Last Updated DateTime 02/11/2025 162.56 cm 36.9 kg/m2 89843.36 g Jose Garcia [place] [facility] 02/11/2025 09:31:06 Date Recorded Body height Body mass index (BMI) Body weight Provider Name and Address Organization Details Last Updated DateTime 04/26/2025 162.56 cm 34.3 kg/m2 94784.47 g Agustina Reyes [place] [facility] 04/26/2025 13:01:20 Social History Question Answer Notes LastModified by Organizat ion Details LastModified Time Tobacco Smoking Status Never Smoker Kim boyle [place] [facility] 10/08/2024 10:14:11 What Type Of Unit Secy Do You Use? None [email or web address] Information not available 10/08/2024 Do You Have Any Pets? No [email or web address] Information not available 10/08/2024 Are You Passively Exposed To Smoke? No [email or web address] Information not available 10/08/2024 Are There Any Smokers In Your House? No Information not available 10/08/2024 Sex: Unknown Functional Status Question Answer Note LastModified by Organization Details LastModified Time Do you use any illicit or recreational drugs? No [email or web address] Information not available 10/08/2024 Do you or have you ever used any other forms of tobacco or nicotine? No Information not available 10/08/2024 What is your level of alcohol consumption? 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 noExposureToExcessiveNoise [email or web address] Infor mation not available 10/08/2024 Mental Status None recorded. Family History Nothing Reported. Medical History Condition Response Allergies/Hayfever N Heart Problems Y Anxiety N Tonsil Infections N Emphysema N Migraines N Thyroid Problems Y COPD N Depression N Developmental Delay N Glaucoma N Nasal or Sinus Problems N Anemia N Immune System Disorder N Anesthesia Complications N Heart Attack (MD) N Other Skin Condition N Diabetes Y [...] ICD10 Code Diagnosis IMO Codes Diagnosis Note [id number] WENDY PATEL PA-C [facility] [address] [address] 10/08/2024 09:55:54 10/08/2024 10:46:57 Impacted cerumen of bilateral ears 6433765515 481420 H61.23 825618 Hearing lo ss of left ear 036721798 H91.92 75424991 [id number] WENDY PATEL PA-C [facility] [address] [address] 10/23/2024 13:00:43 10/23/2024 14:37:47 Sensorineural hearing loss of bilateral ears 405301585 H90.3 66910371 Audiologic al evaluation results: 10/23/2024 Right ear: Normal through 3 kHz sloping to a mild sensorineu ral hearing loss with excellent word recognitio n. Left ear: Mild rising to normal sloping to moderate sensorineu ral hearing loss with excellent word recognitio n. Tympanomet ry: Right Ear:Type Ad Left Ear:Type A Impacted c erumen in left ear 5094105058 335565 H61.22 1310265 [id number] STEVE CARRILLO HERNANDEZ - [address] [address] 11/15/2024 12:36:28 11/16/2024 13:07:37 Sensorineural hearing loss of bilateral ears 158824159 H90.3 68969137 [id number] Preet Gil DO [facility] [address] [address] 02/11/2025 09:25:36 02/11/2025 10:16:12 Sensorineural hearing loss of bilateral ears 232464736 H90.3 55561198 Impacted c erumen in left ear 5358094856 525863 H61.22 5099579 Mass of tongue 535892283 K14.8 6563789 6 mm base of tongue 63827 SHERI SHOOK [facility] [address] [address] 04/26/2025 12:35:17 04/26/2025 13:40:56 Impacted cerumen of bilateral ears 9897001310 267480 H61.23 132429 Will switch from hydrogen peroxide to mineral oil to better soften the wax. Health Concerns Section Related Observation LastModified by Organization Detai ls LastModified Time None Recorded Concern Status LastModified by Organization Details LastModified Time None Recorded Advance Directives Directive None Recorded Payers Insurance Date Sequence Insurance Name Policy Number Policy Reynaga Covered Member ID Reynaga Member ID Guarantor Name 04/30/2025 1 [facility] [id number] 3 Armen Olson [id number] Armen Olson Notes Date Note Type Note [...] cervical fusion, and SINA. He works at [employer]. BAYRON WINSTON MD [address] [place] [address], [address], [facility] - [facility] 10/08/2024 12:19:23 10/23/2024 text/html ROS as [...] Occasional Q tip use. He works at [employer]. 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 He was recently cleared for amplification for his left ear. He has tried hearing aids in the past without much success. He feels he does fine without any amplification. STEVE CARRILLO 100 [facility],[address], [address], [facility] - [facility] 11/15/2024 13:19:38 02/11/2025 text/html ROS as [...] Occasional Q tip use. He works at [employer]. Preet Gil DO 100 [facility],[address], [address], [facility] - [facility] 02/11/2025 10:17:28 04/26/2025 text/html ROS as noted in the HPI 50-year-old male presents for wax removal. Patient is doing well overall with no acute concerns to report today. He uses a 50/50 hydrogen peroxide and water solution for maintenance. Hearing is stable. PREET RENTERIA MD 100 [facility],[address], [address], [facility] 04/26/2025 17:39:45
--- OUTSIDE RECORDS SUMMARY | 2025-05-20 18:02 | XMS_ITS | Encounter Summary ---
Author Organization [facility], Address [address] [place] [address] Phone Care Team Providers Care Staff Submarine Warfare Officer Name Role Phone Lennox Tsang MD Primary Care Provider [phone] Reason for Visit * Reason Comments Med Refill Encounter Details Date Type Department Care Team (Late st Contact Info) Description 08/29/2023 Refill [facility] [address] [place] [address] Preet Valenzuela DO [address] [place] [address] Hypokalemia; Heart failure with normal [...] Visit [facility] [address] [place] [address] Preet Valenzuela DO [address] [place] [address] documented as of this encounter Visit Diagnoses Diagnosis Hypokalemia Heart failure with normal ejection fraction (HCC) documented in this encounter Care Teams Staff Submarine Warfare Officer Relationship Specialty Start Date End Date Lennox Tsang MD [address] [place], [place] PCP - General Internal Medicine 08/09/22 documented as of this encounter
--- OUTSIDE RECORDS SUMMARY | 2025-05-20 18:02 | XMS_ITS | Encounter Summary ---
Author Organization [facility] Address [address] [place] [address] Phone Care Team Providers Care District Sales Coordinator Name Role Phone Lennox Tsang MD Primary Care Provider Encounter Details Date Type Department Care Team (Late st Contact Info) Description 01/06/2023 Documentation Only [facility] [address] [place] [address] Preet Valenzuela DO [address] [place] [address] Social History Tobacco Use Types Packs/Day Years [...] Visit [facility] [address] [place] [address] Preet Valenzuela DO [address] [place] [address] Scheduled Orders Name Type Priority Associated Diagnoses [...] 10:08 AM EST) Creatinine, Urine 165.1 MG/DL [facility] Comment: Testing performed or reported by [facility], a Service of [facility], [address] [place] [address] Stephen Buckley MD, Utility Mechanic CLIA# [id number] Urine specimen (specimen) Urine specimen obtained by clean catch procedure / Unknown 06/01/2023 10:08 AM EST 06/01/2023 10:34 AM EST [facility] URINE ORDERABLES Final Resu lt Performing Organization Address [facility] Co de Phone Number [facility] * (ABNORMAL) PTH, intact (06/01/2023 10:08 AM EST) PTH, Intact 124(H) (15-65) PG/ML [facility] Comment: Testing performed or reported by [facility], a Service of [facility], [address] [place] [address] Stephen Buckley MD, Utility Mechanic CLIA# [id number] Blood specimen (specimen) Venous blood / Unknown 06/01/2023 10:08 AM EST 06/01/2023 10:33 AM EST [facility] BLOOD ORDERABLES Final Resu lt Performing Organization Address City/[facility]/ZIP Co de Phone Number [facility] documented in this encounter Visit Diagnoses Diagnosis Hypercalcemia- Primary documented in this encounter Care Teams District Sales Coordinator Relationship Specialty Start Date End Date Lennox Tsang MD [address] [place], [place] PCP - General Internal Medicine 08/09/22 documented as of this encounter
--- OUTSIDE RECORDS SUMMARY | 2025-05-20 18:03 | XMS_ITS | Patient Health Record ---
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 [employer] Section Notes: Nonsmoker; no sig alcohol Problems Problem Type SNOMED Code ICD Code Onset Dates Problem Status W/U Status Risk Notes Problem Rectal bleeding (90519448) Rectal bleeding (K62.5) Active confirmed Problem Screening for malignant neoplasm of colon (986680442) Encounter for screening for malignant neoplasm of colon (Z12.11) Active confirmed Problem Diverticular disease of colon (304239724) Diverticulosis of large intestine without perforation or abscess without bleeding (K57.30) Active confirmed Plan Of Treatment Pending Test Test Name Order Date Pathology 11/24/2022 Future Test Test Name Order Date COLONOSCOPY 10/01/2022 Insurance Providers Payer Name Payer Address Payer Phone Subscriber Number Group Number Insured Name Patient Relationship to Insured Coverage Start Date Coverage End Date [facility] [address] [place] [address] [id number] SARINA HAN Self - patient is the insured Medical (General) History Medical History History ICD Code Denies [place],DM,CVA,Lung disease,renal dise ase 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 Lal in [place] Sleep apnea-CPAP Arrhythmia with PVC's Gout He describes that he has bee n told at [facility] that he is a difficult intubation Surgical History Surgery Date(Month/Year) Heart surgery for IHSS--his heart surgery in 2001 involved replacement of the aortic valve with a [employer] Fuad's valve 1984,1988,2001 Cervical spine fusion C1-C5 1988 Hernia repair--Bilateral inguinal and um bilical 2011,2014,2017, Tonsillectomy and adenoidectomy
== END 2025-05-20 16:47 | disposition home or self-care (01) ==
LOC: HO.ACS 16:32
PROVIDERS: PCP Internal Medicine; Visit Provider Internal Medicine Medical Oncology
DX: Z79.01 Long term (current) use of anticoagulants (principal)

== ENCOUNTER → 2025-05-20 16:32 | Outpatient (BNVA) | payer OTHER, SELFPAY | PROVIDERS: PCP Internal Medicine; Visit Provider Internal Medicine Medical Oncology | DX: Z95.2 Presence of prosthetic heart valve (principal); Z51.81 Encounter for therapeutic drug level monitoring; Z79.01 Long term (current) use of anticoagulants | CPT/HCPCS: 85610; 99211 ==